=== PATIENT | male | born 1960 | race Caucasian/White ===

== ENCOUNTER 2018-05-07 14:33 | Emergency (ER) | payer BC, OTHER ==
--- OUTSIDE RECORDS SUMMARY | 2018-05-07 14:35 | XMS REPORT | Clinical Summary ---
:1960 Author Organization [facility] Address [address] [place] [address] Phone Care Team Providers Name Role Phone Unavailable Primary Care Provider Unavailable Allergies No Known Allergies Current Medications Prescription Sig. Disp. Refills Start End Date Status Date montelukast Take 10 mg by mouth Active (SINGULAIR) 10 mg nightly. tablet pregabalin Take 75 mg by mouth Active (LYRICA) 75 MG 3 (three) times capsule daily. aspirin 81 MG Take 1 tablet (81 30 tablet 11 08/10/20 Active chewable tablet mg total) by mouth 7 18 daily. atorvastatin Take 1 tablet (40 30 tablet 08/09/20 Active (LIPITOR) 40 MG mg total) by mouth 7 18 tablet nightly. clopidogrel Take 1 tablet (75 30 tablet 11 08/10/20 Active (PLAVIX) 75 mg mg total) by mouth 7 18 tablet daily. levothyroxine Take 1 tablet (112 30 tablet 11 08/10/20 Active (SYNTHROID, mcg total) by mouth 7 18 LEVOTHROID) 112 Every morning on an MCG tablet empty stomach. metFORMIN Take 1 tablet (500 60 tablet 2 Active (GLUCOPHAGE) 500 mg total) by mouth 7 MG tablet 2 (two) times daily with breakfast and dinner. insulin detemir Inject 0.3 mLs (30 3 mL 11 Active (LEVEMIR) 100 Units total) 7 unit/mL (3 mL) subcutaneously 2 InPn injection (two) times daily. insulin lispro 200 Inject 8-20 Units 3 mL Active unit/mL (3 mL) subcutaneously 3 7 InPn (three) times daily before meals. glipiZIDE Take 10 mg by mouth 08/09/20 Discontinued (GLUCOTROL) 10 MG once in evening. 17 tablet metoprolol Take 25 mg by mouth 08/09/20 Discontinued (TOPROL-XL) 25 MG daily. 17 24 hr tablet metFORMIN Take 500 mg by 08/09/20 Discontinued (GLUCOPHAGE) 500 mouth 3 (three) 17 MG tablet times daily. liothyronine Take 5 mcg by mouth 08/09/20 Discontinued (CYTOMEL) 5 MCG 2 (two) times [address] onto the 08/16/20 Discontinued (ANDRODERM) 4 skin. 17 mg/24 hr PT24 insulin glargine Inject 40 Units 08/09/20 Discontinued (LANTUS) 100 subcutaneously 17 unit/mL injection nightly Use as directed . acetaminophen-code Take 1 tablet by 30 tablet 0 08/19/20 ine (TYLENOL #3) mouth every 4 7 17 300-30 mg per (four) hours as tablet needed for up to 10 days. Max Daily Amount: 6 tablets bumetanide (BUMEX) Take 1 tablet (1 mg 60 tablet 11 08/16/20 Discontinued 1 MG tablet total) by mouth 2 7 17 (two) times daily. losartan (COZAAR) Take 1 tablet (25 30 tablet 08/20/20 Discontinued 25 MG tablet mg total) by mouth 7 17 daily. Active Problems Problem Noted Date Paroxysmal atrial fibrillation ([facility]) 08/16/2017 Neuropathy ([facility]) 08/16/2017 Stage 2 chronic kidney disease 08/16/2017 Uncontrolled type 2 diabetes mellitus with hyperglycemia ([facility]) 08/01/2017 CAD (coronary artery disease), [place] coronary artery 07/29/2017 Type 2 diabetes mellitus with other circulatory complication 07/29/2017 Mixed hyperlipidemia 07/29/2017 STEMI (ST elevation myocardial infarction) ([facility]) 07/28/2017 Essential hypertension Resolved Problems Problem Noted Date Resolved Date Ileus ([facility]) 08/02/2017 08/16/2017 Shock liver 08/02/2017 08/16/2017 Acute pulmonary insufficiency following thoracic surgery 08/01/20172016 ([facility]) Cardiogenic shock ([facility]) 08/01/2017 08/16/2017 Encephalopathy acute 08/01/2017 08/16/2017 Atrial fibrillation with rapid ventricular response ([facility]) 08/01/20172016 Acute kidney injury (HCC) 08/01/2017 08/16/2017 Acute hyperkalemia 08/01/2017 08/16/2017 SIRS (systemic inflammatory response syndrome) (HCC) 08/01/2017 08/16/2017 RVF (right ventricular failure) (HCC) 07/31/2017 08/16/2017 Acute respiratory insufficiency, postoperative 07/30/2017 08/16/2017 Pulmonary edema cardiac cause (HCC) 07/29/2017 08/16/2017 CAD (coronary artery disease) 08/16/2017 Non-intractable cyclical vomiting with nausea 08/16/2017 Encounters Date Type Specialty Care Team Description 08/20/2017 Office Visit Cardiology Tram Luke Post-operative state Jennifer MD (Primary Dx) Valdo Ballesteros MD 08/16/2017 Office Visit Cardiology Rosalva Vila, Carla combined SPEECH CLINICIAN systolic and diastolic CHF (congestive heart failure) ([facility]) (Primary Dx);Stage 2 chronic kidney disease 08/05/2017 Procedure Pass 08/05/2017 Surgery Faustino Lazar MD 08/01/2017 Procedure Pass 07/30/2017 Procedure Pass 07/30/2017 Surgery Favian BYPASS,AORTO CORONARY Valdo Crane CORINNA/SVG 07/29/2017 Anesthesia Event CelineLeo bazan, AA 07/29/2017 Procedure Pass 07/29/2017 Surgery [place] [facility] L CATH & PCI 07/29/2017 Orders Only General Internal Medicine 07/28/2017 - Hospital Encounter Transplant [place], ST elevation 08/09/2017 myocardial infarction Brandin Wu involving right (Joaquim) MD Luther coronary artery ([facility]) (Primary Dx);Acute respiratory insufficiency, postoperative;RVF (right ventricular failure) (HCC);Acute hyperkalemia;Acute kidney injury (HCC);Acute pulmonary insufficiency following thoracic surgery (HCC);Atrial fibrillation with rapid ventricular response (HCC);Cardiogenic shock (HCC);Encephalopathy acute;Ileus (HCC);Shock liver 07/28/2017 Procedure Pass 07/28/2017 Surgery [facility] L CATH & PCI after 05/06/2017 Social History Tobacco Use Types Packs/Day Years Used Date Never Smoker Smokeless Tobacco: Never Used Sex Assigned at Date Recorded Not on file Last Filed Vital Signs Vital Sign Reading Time Taken Blood Pressure 110/61 08/20/2017 9:37 AM CDT Pulse 113 08/20/2017 9:37 AM CDT Temperature 37 C (98.6 F) 08/20/2017 9:37 AM CDT Respiratory Rate 18 08/20/2017 9:37 AM CDT Oxygen Saturation 99% 08/20/2017 9:37 AM CDT Inhaled Oxygen Concentration - - Weight 92.5 kg (204 lb) 08/20/2017 9:37 AM CDT Height 182.9 cm (6') 08/20/2017 9:37 AM CDT Body Mass Index 27.67 08/20/2017 9:37 AM CDT Plan of Treatment Health Maintenance Due Date Last Done Comments INFLUENZA VACCINE 08/18/2018 Procedures Procedure Name Priority Date/Time Associated Diagnosis Comments R CATH 08/05/2017 2:49 PM CDT chest pain Case Notes [id number] ENDOSCOPIC HARVEST,VEIN 07/30/2017 7:30 AM CDT COAD BYPASS,AORTO CORONARY 07/30/2017 7:30 AM CDT COAD CORINNA/SVG CENTRAL LINE Routine 07/29/2017 10:18 PM CDT after 05/06/2017 Results B N P (08/16/2017 10:08 AM)Only the most recent of2 resultswithin the time period is included. Component Value Ref Range BNP 456 (H) 0 - 100 pg/mL Specimen Performing Laboratory Blood [address] [address] Magnesium (08/16/2017 10:08 AM)Only the most recent of16 resultswithin the time period is included. Component Value Ref Range Magnesium 2.0 1.6 - 2.6 mg/dL Specimen Performing Laboratory Blood [address] [address] Basic Metabolic Panel (08/16/2017 10:08 AM)Only the most recent of23 resultswithin the time period is included. Component Value Ref Range Sodium 135 (L) 136 - 145 meq/L Potassium 5.1 3.5 - 5.1 meq/L Chloride 100 98 - 107 meq/L CO2 27 22 - 29 meq/L BUN 26 (H) 7 - 21 mg/dL Creatinine 1.06 0.57 - 1.25 mg/dL Glucose 175 (H) 70 - 105 mg/dL Calcium 9.5 8.4 - 10.2 mg/dL EGFR 72Comment: ESTIMATED GFR IS NOT ACCURATE mL/min/1.73 sq m CREATININE CLEARANCE IN PREDICTING GLOMERULAR FILTRATION RATE. ESTIMATED GFR IS NOT APPLICABLE FOR DIALYSIS PATIENTS. Specimen Performing Laboratory Blood [address] [address] VASCULAR DIAGRAM -SCAN (08/12/2017 1:00 PM)Only the most recent of2 resultswithin the time period is included.RHYTHM STRIP - SCAN (08/12/2017 1:00 PM)EKG-SCANNED (08/12/2017 1:00 PM)POC-Glucose meter (08/09/2017 12:06 PM)Only the most recent of116 resultswithin the time period is included. Component Value Ref Range POC-Glucose Meter 272 (H)Comment: TESTED AT [address] 70 - 110 mg/[place] [id number] Specimen Performing Laboratory Blood [address] [address] ECG 12 lead (08/09/2017 7:06 AM)Only the most recent of11 resultswithin the time period is included. Specimen Performing Laboratory GE MUSE Narrative Ventricular Rate 97 BPM Atrial Rate 97 BPM P-R Interval 144 ms QRS Duration 84 ms Q-T Interval 336 ms QTC Calculation(Bazett) 426 ms P [place] 49 degrees R [place] -7 degrees T [place] -32 degrees Sinus rhythm with occasional Premature ventricular complexes Inferolateral infarct(cited on or before 04-AUG-2017) Nonspecific ST and T wave abnormality Abnormal ECG When compared with ECG of 08-AUG-2017 08:22, Premature ventricular complexes are now Present Inverted T waves have replaced nonspecific T wave abnormality in Lateral leads Confirmed by MD JOSEFINA, MATTHIEU ([id number]) on 08/09/2017 5:23:21 PM Procedure Note Interface, External Ris In - 08/09/2017 5:23 PM CDT Ventricular Rate 97 BPM Atrial Rate 97 BPM P-R Interval 144 ms QRS Duration 84 ms Q-T Interval 336 ms QTC Calculation(Bazett) 426 ms P [place] 49 degrees R [place] -7 degrees T [place] -32 degrees Sinus rhythm with occasional Premature ventricular complexes Inferolateral infarct (cited on or before 04-AUG-2017) Nonspecific ST and T wave abnormality Abnormal ECG When compared with ECG of 08-AUG-2017 08:22, Premature ventricular complexes are now Present Inverted T waves have replaced nonspecific T wave abnormality in Lateral leads Confirmed by MD JOSEFINA, MATTHIEU ([id number]) on 08/09/2017 5:23:21 PM CBC with platelet count + automated diff (08/09/2017 6:05 AM)Only the most recent of12 resultswithin the time period is included. Component Value Ref Range WBC 4.6 3.5 - 10.5 K/L RBC 2.91 (L) 4.63 - 6.08 M/L Hemoglobin 8.4 (L) 13.7 - 17.5 GM/DL Hematocrit 26.5 (L) 40.1 - 51.0 % MCV 91.1 79.0 - 92.2 fL MCH 28.9 25.7 - 32.2 pg MCHC 31.7 (L) 32.3 - 36.5 GM/DL RDW 13.8 11.6 - 14.4 % Platelets 166 150 - 450 K/CU MM MPV 11.1 9.4 - 12.4 fL nRBC 0 0 - 0 /100 WBC % Neutros 62 % % Lymphs 24 % % Monos 10 % % Eos 3 % % Baso 1 % # Neutros 2.86 1.78 - 5.38 K/L # Lymphs 1.08 (L) 1.32 - 3.57 K/L # Monos 0.46 0.30 - 0.82 K/L # Eos 0.12 0.04 - 0.54 K/L # Baso 0.03 0.01 - 0.08 K/L Immature Granulocytes-Relative 1 0 - 1 % Specimen Performing Laboratory Blood [facility] [address] [address] CBC with platelet count + automated diff (08/09/2017 6:05 AM)Only the most recent of12 resultswithin the time period is included. Specimen Performing Laboratory Blood Narrative The following orders were created for panel order CBC with platelet count + automated diff. Procedure Abnormality Status --------- ------ CBC with platelet count ...[[id number]]AbnormalFinal result Please view results for these tests on the individual orders. XR chest 1 view portable / bedside (08/08/2017 7:15 AM)Only the most recent of14 resultswithin the time period is included. Specimen Performing Laboratory GE RIS Narrative FINAL REPORT HISTORY : acute pulmonary edema, aggressive diuresis over 24hrs.. Comparison: 08/07/2017 Comment: Single portable view of the chest was obtained. The cardiac silhouette size is enlarged. There are some diffusely prominent interstitial lung markings, likely representing interstitial edema. Interstitial pneumonitis cannot be excluded. There is some bilateral midlung linear airspace disease likely representing atelectasis versus scarring. Stable right-sided PICC line catheter is seen. The patient is status post sternotomy. No pneumothorax or pleural effusion is seen. Signed: Russell Acharya MD Report Verified Date/Time:08/08/2017 07:53:05 Reading Location: [facility] Diagnostic Imaging Reading Room - [place] [address] Procedure Note Interface, External Ris In - 08/08/2017 7:55 AM CDT FINAL REPORT HISTORY : acute pulmonary edema, aggressive diuresis over 24hrs.. Comparison: 08/07/2017 Comment: Single portable view of the chest was obtained. The cardiac silhouette size is enlarged. There are some diffusely prominent interstitial lung markings, likely representing interstitial edema. Interstitial pneumonitis cannot be excluded. There is some bilateral midlung linear airspace disease likely representing atelectasis versus scarring. Stable right-sided PICC line catheter is seen. The patient is status post sternotomy. No pneumothorax or pleural effusion is seen. Signed: Russell Acharya MD Report Verified Date/Time: 08/08/2017 07:53:05 Reading Location: [facility] Diagnostic Imaging Reading Room - [place] [address] Hepatic function panel (08/07/2017 8:18 AM)Only the most recent of5 resultswithin the time period is included. Component Value Ref Range Protein, Total 6.0 6.0 - 8.3 gm/dL Albumin 3.0 (L) 3.5 - 5.0 g/dL Total Bilirubin 0.8 0.2 - 1.2 mg/dL Bilirubin, Direct 0.4 0.1 - 0.5 mg/dL Alkaline Phosphatase 69 40 - 150 U/L AST 58 (H) 5 - 34 U/L ALT 430 (H) 6 - 55 U/L Specimen Performing Laboratory Blood - Central Venous Line [address] [address] ECHOCARDIOGRAM REPORT - SCAN (08/07/2017 7:20 AM)Only the most recent of3 resultswithin the time period is included.Manual Differential (08/07/2017 6:48 AM)Only the most recent of5 resultswithin the time period is included. Component Value Ref Range Total Counted WBC Morphology Normal Platelet Morphology Normal Anisocytosis 1+ few Polychromasia 2+ moderate Tear Drop Cells 1+ few Specimen Performing Laboratory Blood [address] [address] Digoxin level (08/07/2017 3:33 AM) Component Value Ref Range Digoxin Lvl 0.5 (L) 0.8 - 2.0 ng/mL Specimen Performing Laboratory Blood [address] [address] Potassium (08/06/2017 1:41 PM)Only the most recent of14 resultswithin the time period is included. Component Value Ref Range Potassium 3.9 3.5 - 5.1 meq/L Specimen Performing Laboratory Blood - Central Venous Line [address] [address] Narrative 8 hours after PO replacement completed CARDIAC CATH REPORT - SCAN (08/06/2017 1:11 PM)Only the most recent of3 resultswithin the time period is included.Limited 2D Echocardiogram (08/06/2017 12:37 PM) Component Value Ref Range Ejection Fraction Specimen Performing Laboratory [facility] ECHO HEARTLAB [facility] Narrative Transthoracic Echocardiography Report (TTE) Demographics Patient Name KOKO,Date of Study 08/06/2017 ZAHRAA [id number] Male Visit Number [id number] Room Number C827 Number Date of Birth1960Referring Physician Nagi Nicholas Age56 year(s)Children'S Counselor Lindsay Galicia, NIDHI AnalystAlex Zade Interpreting Avinash Dick Physician Procedure Type of Study TTE procedure:LIMITED 2D ECHOCARDIOGRAM ([facility]) Indications:Suspected Pericardial conditions. Clinical History HGB 8.8 HCT 25.9 % NAVI Atrial Fibrillation/flutter Coronary Artery Disease Diabetes Hyperlipidemia Hypertension STEMI S/P ACB X3 (07/30/17) Height: 72 inches Weight: 97.98 kg (216 lbs) BSA: 2.2 m^2 BMI: 29.29 kg/m^2 HR: 93 bpm BP: 141/73 mmHg Summary Limited 2D echo, to assess pericardial effusion. The left ventricle is chamber size (by PSLAX dimension) is normal (male - LVIDd 4.2-5.8cm) . The following segment(s) appear mildly hypokinetic: basal-mid inferolateral. . The other segments contract normally. Estimated LVEF by qualitative assessment is normal (55-60%) . No pericardial effusion is visualized. The inferior vena cava is not well visualized. Mild tricuspid regurgitation. Estimated peak systolic PA pressure is 20-25 mmHg + RA pressure. Signature Findings Left Ventricle The left ventricle is chamber size (by PSLAX dimension) is normal (male - LVIDd 4.2-5.8cm) . The following segment(s) appear mildly hypokinetic: basal-mid inferolateral. . The other segments contract normally. Estimated LVEF by qualitative assessment is normal (55-60%) . Left AtriumLA size is moderately enlarged . Right VentricleRV chamber size is mildly enlarged . Global RV systolic function is normal . Right Atrium RA size is dilated. Aortic Valve Mild AoV cusp thickening. Mitral Valve Normal MV structure. Tricuspid ValveMild tricuspid regurgitation. Estimated peak systolic PA pressure is 20-25 mmHg + RA pressure. AortaAortic root size (SInus of Valsalva diameter) is normal . PericardiumNo pericardial effusion is visualized. IVC/SVC/PA/PV/PleuralThe inferior vena cava is not well visualized. Chambers/Structures Left Atrium LA Dimension: 4.34 cmLA Area: 27.08 cm^2 LA Volume: 92.62 ml LA Vol. Index: 42 ml/m^2 Left Ventricle LVIDd: 4.57 cm LVEDV 2D:96.08 ml LV Septum Diastolic: 0.97 cm LV PW Diastolic: 1.09 cm Aorta Ao Root S of Nithya.: 3.42 cm Procedure Note Interface, External Ris In - 08/06/2017 7:22 PM CDT Transthoracic Echocardiography Report (TTE) Demographics Patient Name [place], Date of Study 08/06/2017 ZAHRAA Gender Male Visit Number [id number] Race Unknown Room Number C827 Number Date of 1960 Referring Physician Nagi Nicholas Age 56 year(s) Children'S Counselor Lindsay Galicia, [facility] Account Resolution Specialist Abiodun Krishnamurthy Interpreting Avinash Dick, Physician Procedure Type of Study TTE procedure:LIMITED 2D ECHOCARDIOGRAM ([facility]) Indications:Suspected Pericardial conditions. Clinical History HGB 8.8 HCT 25.9 % NAVI Atrial Fibrillation/flutter Coronary Artery Disease Diabetes Hyperlipidemia Hypertension STEMI S/P ACB X3 (07/30/17) Height: 72 inches Weight: 97.98 kg (216 lbs) BSA: 2.2 m^2 BMI: 29.29 kg/m^2 HR: 93 bpm BP: 141/73 mmHg Summary Limited 2D echo, to assess pericardial effusion. The left ventricle is chamber size (by PSLAX dimension) is normal (male - LVIDd 4.2-5.8cm) . The following segment(s) appear mildly hypokinetic: basal-mid inferolateral. . The other segments contract normally. Estimated LVEF by qualitative assessment is normal (55-60%) . No pericardial effusion is visualized. The inferior vena cava is not well visualized. Mild tricuspid regurgitation. Estimated peak systolic PA pressure is 20-25 mmHg + RA pressure. Signature Findings Left Ventricle The left ventricle is chamber size (by PSLAX dimension) is normal (male - LVIDd 4.2-5.8cm) . The following segment(s) appear mildly hypokinetic: basal-mid inferolateral. . The other segments contract normally. Estimated LVEF by qualitative assessment is normal (55-60%) . Left Atrium LA size is moderately enlarged . Right Ventricle RV chamber size is mildly enlarged . Global RV systolic function is normal . Right Atrium RA size is dilated. Aortic Valve Mild AoV cusp thickening. Mitral Valve Normal MV structure. Tricuspid Valve Mild tricuspid regurgitation. Estimated peak systolic PA pressure is 20-25 mmHg + RA pressure. Aorta Aortic root size (SInus of Valsalva diameter) is normal . Pericardium No pericardial effusion is visualized. IVC/SVC/PA/PV/Pleural The inferior vena cava is not well visualized. Chambers/Structures Left Atrium LA Dimension: 4.34 cm LA Area: 27.08 cm^2 LA Volume: 92.62 ml LA Vol. Index: 42 ml/m^2 Left Ventricle LVIDd: 4.57 cm LVEDV 2D:96.08 ml LV Septum Diastolic: 0.97 cm LV PW Diastolic: 1.09 cm Aorta Ao Root S of Nithya.: 3.42 cm aPTT (08/06/2017 8:16 AM)Only the most recent of18 resultswithin the time period is included. Component Value Ref Range PTT 45.7 (H) 22.5 - 36.0 seconds Specimen Performing Laboratory Blood - Central Venous Line [address] [address] Oxygen saturation, measured (08/06/2017 2:59 AM)Only the most recent of13 resultswithin the time period is included. Component Value Ref Range O2 Saturation (Measured) 59.5 % Specimen Performing Laboratory Blood - Central Venous Line [address] [address] Narrative Mixed venous from central line. Lactic acid, venous, whole blood (08/06/2017 2:59 AM) Component Value Ref Range Lactate, Venous 0.9 0.5 - 2.2 mmol/L Specimen Performing Laboratory Blood - Central Venous Line [address] [address] Narrative Effective 03/21/2016: Units/Reference Range Change New: 0.5-2.2 mmol/LPrevious: 5-20 mg/dL Hepatitis panel, acute (08/06/2017 2:59 AM) Component Value Ref Range Hep A IgM Nonreactive Nonreactive Hep B C IgM Nonreactive Nonreactive Hepatitis C Ab Nonreactive Nonreactive hepatitis B Surface Ag Nonreactive Nonreactive Specimen Performing Laboratory Blood - Central Venous Line [address] [address] Phosphorus (08/06/2017 2:59 AM)Only the most recent of7 resultswithin the time period is included. Component Value Ref Range Phosphorus 3.0 2.3 - 4.7 mg/dL Specimen Performing Laboratory Blood - Central Venous Line [address] [address] Lactic acid, arterial, whole blood (08/05/2017 3:27 AM)Only the most recent of6 resultswithin the time period is included. Component Value Ref Range Lactate, Art 1.6 0.5 - 2.2 mmol/L Specimen Performing Laboratory Blood, Arterial [address] [address] Narrative Effective 03/21/2016: Units/Reference Range Change New: 0.5-2.2 mmol/LPrevious: 5-20 mg/dL TRANSFUSION SERVICE REPORT - SCAN (08/03/2017 5:43 PM)Only the most recent of5 resultswithin the time period is included.US abdomen limited (08/03/2017 7:05 AM) Specimen Performing Laboratory [facility] Narrative FINAL REPORT Ultrasound of the Right Upper Quadrant of the Abdomen Clinical History:Abnormal LFTs Comparison: None available Discussion: Sonographic evaluation of the right upper quadrant of the abdomen is performed. Liver: Measures 17.3 cm in length at the right midclavicular line. Diffusely increased echogenicity of the hepatic parenchyma. No lesion is identified by ultrasound.Main portal vein diameter measures 1.2 cm. Biliary tree:Common duct measures 6 mm.No intrahepatic biliary dilatation. Gallbladder:Sludge in the gallbladder lumen. No wall thickening. No pericholecystic fluid.Negative sonographic Colby's sign. Pancreas: Not well visualized. Ascites:None seen. Right kidney:Measures 11.3 x 5.3 x 6.4 cm.Normal cortical echogenicity.No mass.No shadowing calculus.No hydronephrosis. IVC/Aorta: Not well seen. Impression: Diffusely increased echogenicity of the hepatic parenchyma, a nonspecific finding which can be seen in steatosis or hepatitis. Gallbladder sludge. No sonographic evidence of acute cholecystitis. Signed: Chele Franco MD Report Verified Date/Time:08/03/2017 09:59:59 Reading Location: [facility] C013Y CT Body Reading Room Procedure Note Interface, External Ris In - 08/03/2017 10:02 AM CDT FINAL REPORT Ultrasound of the Right Upper Quadrant of the Abdomen Clinical History: Abnormal LFTs Comparison: None available Discussion: Sonographic evaluation of the right upper quadrant of the abdomen is performed. Liver: Measures 17.3 cm in length at the right midclavicular line. Diffusely increased echogenicity of the hepatic parenchyma. No lesion is identified by ultrasound. Main portal vein diameter measures 1.2 cm. Biliary tree: Common duct measures 6 mm. No intrahepatic biliary dilatation. Gallbladder: Sludge in the gallbladder lumen. No wall thickening. No pericholecystic fluid. Negative sonographic Colby's sign. Pancreas: Not well visualized. Ascites: None seen. Right kidney: Measures 11.3 x 5.3 x 6.4 cm. Normal cortical echogenicity. No mass. No shadowing calculus. No hydronephrosis. IVC/Aorta: Not well seen. Impression: Diffusely increased echogenicity of the hepatic parenchyma, a nonspecific finding which can be seen in steatosis or hepatitis. Gallbladder sludge. No sonographic evidence of acute cholecystitis. Signed: Chele Franco MD Report Verified Date/Time: 08/03/2017 09:59:59 Reading Location: [address] Body Reading Room Creatine Kinase (CK) (08/03/2017 4:52 AM)Only the most recent of2 resultswithin the time period is included. Component Value Ref Range Total CK 1216 (H) 29 - 200 U/L Specimen Performing Laboratory Blood [address] [address] Prepare Leuko-Red RBC (08/02/2017 11:54 PM) Component Value Ref Range CROSSMATCH COMPATIBLE Unit ABO A Pos UNIT NUMBER [id number] Status TRANSFUSED Blood Bank Product RED BLOOD CELLS PRODUCT CODE [id number] Specimen Performing Laboratory Other [employer] [place] Blood gas, arterial (08/02/2017 3:32 PM)Only the most recent of11 resultswithin the time period is included. Component Value Ref Range pH, Arterial 7.46 (H) 7.35 - 7.45 pCO2, Arterial 35 35 - 45 mmHg pO2, Arterial 244 (H) 80 - 90 mmHg O2 Sat, Arterial 99.6 (H) 96.0 - 97.0 % HCO3, Arterial 25 21 - 29 mmol/L Base Excess, Arterial 0.6 -2.0 - 3.0 mmol/L Patient Temperature 36.5 C FIO2 100.0 % Specimen Performing Laboratory Blood, Arterial [address] [address] Hemoglobin and hematocrit (08/02/2017 8:36 AM)Only the most recent of8 resultswithin the time period is included. Component Value Ref Range Hemoglobin 9.1 (L) 13.7 - 17.5 GM/DL Hematocrit 26.7 (L) 40.1 - 51.0 % Specimen Performing Laboratory Blood [address] [address] XR abdomen / KUB 1 view (08/02/2017 5:26 AM) Specimen Performing Laboratory GE RIS Narrative FINAL REPORT RAD, ABDOMEN/KUB, 1 VIEW AP CLINICAL INDICATION:"Distention" COMPARISON: None TECHNIQUE: Single, frontal radiograph of the abdomen. IMPRESSION: Prominent but not dilated, air-filled loops of small bowel in the left hemiabdomen. Nondistended, air-filled loops of colon. Overall pattern is nonspecific. There is no high-grade obstruction at this time. No pneumatosis or obvious pneumoperitoneum. No acute osseous abnormality. Signed: Alice Moore MD Report Verified Date/Time:08/02/2017 05:44:54 Reading Location: [facility] C013X Ortho Consult Reading Room Procedure Note Interface, External Ris In - 08/02/2017 5:47 AM CDT FINAL REPORT RAD, ABDOMEN/KUB, 1 VIEW AP CLINICAL INDICATION: "Distention" COMPARISON: None TECHNIQUE: Single, frontal radiograph of the abdomen. IMPRESSION: Prominent but not dilated, air-filled loops of small bowel in the left hemiabdomen. Nondistended, air-filled loops of colon. Overall pattern is nonspecific. There is no high-grade obstruction at this time. No pneumatosis or obvious pneumoperitoneum. No acute osseous abnormality. Signed: Alice Moore MD Report Verified Date/Time: 08/02/2017 05:44:54 Reading Location: [facility] C013X Ortho Consult Reading Room Transfuse Leuko-Red RBC (08/01/2017 6:53 PM)Only the most recent of2 resultswithin the time period is included.US Renal with Doppler (08/01/2017 4: 00 PM) Specimen Performing Laboratory [facility] Narrative FINAL REPORT TECHNIQUE: Grayscale, color Doppler, and spectral Doppler ultrasound of the kidneys and bladder. INDICATION: 56-year-old man with acute kidney injury. COMPARISON: None. FINDINGS: Markedly limited evaluation of the renal vasculature secondary to patient body habitus and inability to be repositioned. RIGHT KIDNEY: The right kidney measures 9.7 cm. Cortical thickness measures 1.3 cm. No solid mass lesions. No hydronephrosis. Renal artery and vein are not clearly visualized. LEFT KIDNEY: The left kidney measures 10 cm. Cortical thickness measures 0.8 cm. No solid mass lesions. No hydronephrosis. Renal artery and vein are patent. Resistive index in the interpolar region is within normal limits, measuring 0.6. Resistive indices in the upper and lower poles cannot be accurately assessed. BLADDER: Decompressed by Caballero catheter. OTHER FINDINGS: Trace ascites in the pelvis. IMPRESSION: Unremarkable appearance of both kidneys. Markedly limited Doppler evaluation of the renal vasculature, as detailed above. Trace ascites in the pelvis. Signed: Evan Artis MD Report Verified Date/Time:08/01/2017 16:36:54 Reading Location: [address] Ultrasound Reading Room Procedure Note Interface, External Ris In - 08/01/2017 4:39 PM CDT FINAL REPORT TECHNIQUE: Grayscale, color Doppler, and spectral Doppler ultrasound of the kidneys and bladder. INDICATION: 56-year-old man with acute kidney injury. COMPARISON: None. FINDINGS: Markedly limited evaluation of the renal vasculature secondary to patient body habitus and inability to be repositioned. RIGHT KIDNEY: The right kidney measures 9.7 cm. Cortical thickness measures 1.3 cm. No solid mass lesions. No hydronephrosis. Renal artery and vein are not clearly visualized. LEFT KIDNEY: The left kidney measures 10 cm. Cortical thickness measures 0.8 cm. No solid mass lesions. No hydronephrosis. Renal artery and vein are patent. Resistive index in the interpolar region is within normal limits, measuring 0.6. Resistive indices in the upper and lower poles cannot be accurately assessed. BLADDER: Decompressed by Caballero catheter. OTHER FINDINGS: Trace ascites in the pelvis. IMPRESSION: Unremarkable appearance of both kidneys. Markedly limited Doppler evaluation of the renal vasculature, as detailed above. Trace ascites in the pelvis. Signed: Evan Artis MD Report Verified Date/Time: 08/01/2017 16:36:54 Reading Location: [address] Ultrasound Reading Room Type and screen, automated (08/01/2017 11:04 AM)Only the most recent of2 resultswithin the time period is included. Component Value Ref Range ABO/RH AUTOMATED (BEAKER) A POSITIVE Ab Scrn NEGATIVE Specimen Performing Laboratory Blood [facility] [address] [place] [address] Glucose-STAT (08/01/2017 6:45 AM) Component Value Ref Range Glucose 345 (H) 70 - 105 mg/dL Specimen Performing Laboratory Blood - Line, Arterial [address] [address] Prepare PLT (07/31/2017 11:54 PM) Component Value Ref Range Unit ABO O Pos UNIT NUMBER [id number] Status TRANSFUSED Blood Bank Product PLATELETS PRODUCT CODE [id number] Status CANCELED Blood Bank Product PLATELETS Specimen Performing Laboratory [facility] [place] 2D Echo W/Doppler(CW/PW/Color) (07/31/2017 11:43 AM)Only the most recent of2 resultswithin the time period is included. Component Value Ref Range Ejection Fraction Specimen Performing Laboratory SLE ECHO HEARTLAB MKCKESSON CPACS Narrative Transthoracic Echocardiography Report (TTE) Demographics Patient Name DODGEVILLE,Date of Study2016 ZAHRAA [id number] Male Visit Number [id number] Unknown [id number] Room Number C827 Number Date of Birth1960Referring PhysicianSnaples River S Age56 year(s)SonographerSarah Burgos Interpreting Nichol Condon MD Physician Fellow Sumit Kruger Procedure Type of Study TTE procedure:2DECHO W DOPPLER(CW/PW/COLOR) (STAT) Indications:Known or suspected cardiomyopathy. Clinical History HGB 8.8 HCT 26.2 % STEMI, CAD, DM, HLD, CAD, Respiratory Insufficiency, RVF, HLD, ACB X 3 (07/30/17) Height: 72.05 inches Weight: 96 kg (211.64 lbs) BSA: 2.18 m^2 BMI: 28.67 kg/m^2 HR: 112 bpm BP: 98/54 mmHg Summary Global LV systolic function lower limits of normal . The following segment(s) appear akinetic: basal to mid inferior and basal to mid inferolateral wall. No evidence of LV hypertrophy. Grade 1 diastolic dysfunction (impaired relaxation and low-normal LA pressure). RV chamber size is mildly enlarged . Global RV systolic function is normal . A small pericardial effusion is suspected . Pericardial effusion is most apparent in the following locations: left ventricle ( adjacent to lateral wall of LV and left atrium. ) Previous Study Compared to the previous study on 07/29/17 there is a small pericardial effusion and new abnormal septal wall motion, likely in setting of recent cardiac surgery and the IABP is no longer in place. Signature Findings Rhythm/BPSinus tachycardia during the exam. Left Ventricle The left ventricle is chamber size (by vol index) is normal. The following segment(s) appear akinetic: basal to mid inferior and basal to mid inferolateral wall. Septal motion is abnormal, likely related to prior cardiac surgery . LVEF by quantitative assessment is lower limits of normal (50-55%) , Grade 1 diastolic dysfunction (impaired relaxation and low-normal LA pressure). Global LV systolic function lower limits of normal . No evidence of LV hypertrophy. Left AtriumLA size is normal . Right VentricleRV chamber size is mildly enlarged . Global RV systolic function is normal . Right Atrium RA size is normal. Aortic Valve Mild AoV cusp calcification. AoV calcification primarily involves the right- and non- coronary cusp(s). No evidence of aortic regurgitation. Mitral Valve Mild MV leaflet thickening. Mild to moderate mitral regurgitation. Restricted MV leaflet mobility involves the posterior leaflet(s) and appear due to papillary muscle dysfunction. The mechanism for MR is leaflet tethering . Tricuspid ValveMild TV leaflet thickening. Mild tricuspid regurgitation. Estimated peak systolic PA pressure is 20-25 mmHg + RA pressure. Pulmonic Valve Normal PV structure and function by limited views and Doppler. A trace of pulmonary regurgitation. AortaAortic root size (SInus of Valsalva diameter) is normal . PericardiumA small pericardial effusion is suspected . Pericardial effusion is most apparent in the following locations: left ventricle ( adjacent to lateral wall of LV and left atrium. ) IVC/SVC/PA/PV/PleuralThe inferior vena cava is not well visualized. The estimated RA pressure by IVC dynamics indeterminate . Chambers/Structures Left Atrium LA Volume: 55.43 ml LA Area: 20.19 cm^ 2 LA Vol. Index: 25 ml/m^2 Left Ventricle LVIDd: 4.92 cmLVEDV 2D :82.46 ml LVIDs: 3.58 cmLVESV 2D :37.34 ml LV Septum Diastolic: 0.98 cm LV Septum Systolic: 1.39 cm LV PW Diastolic: 1 cm LV FS: 27.2 % LV PW Systolic: 1.17 cm LV ESV (Cubed): 45.88 cc LVOT Diameter: 1.95 cm LV ESV (Teich):53.71 ml LV SV (Teich):60.18 ml LV SI (Teich):27.61 ml/m^2 LVEF 2D Teich: 54.7 % Aorta Ao Root S of Nithya.: 3.24 cm Shunts QS:38.11 ml Doppler/Quantitative Measurements Mitral Valve Peak Velocity: 3.33 m/s Mean Velocity: 0.55 m/s Mean Gradient: 1.37 mmHg Area (continuity): 2.37 cm^2 MR Velocity: 4.35 m/s MR VTI : 89.08 cm MV VTI : 16.06 cm MR Pk Grad: 75.55 mmHg Aortic Valve Peak Velocity: 1.23 m/sMean Velocity: 0.89 m/s Peak Gradient: 6.03 mmHg Mean Gradient: 3.63 mmHg AV Area (continuity): 2.22 cm^2 AV VTI: 17.19 cm AV DVI: 0.74 LVOT Peak Velocity: 0.86 m/s Peak Gradient: 2.95 mmHg Mean Velocity: 0.51 m/s Mean Gradient: 1.31 mmHg LVOT Diameter: 1.95 cmLVOT VTI: 12.76 cm LVOT Area: 2.99 cm^2LVOT SV:38.09 ml LVOT CO: 4.27 l/min LVOT CI: 1.96 l/min/m^2 Tricuspid Valve TR Velocity: 2.22 m/s TR Gradient: 19.65 mmHg Procedure Note Interface, External Ris In - 08/01/2017 1:10 PM CDT Transthoracic Echocardiography Report (TTE) Demographics Patient Name KOKO, Date of Study 07/31/2017 ZAHRAA Gender Male Visit Number [id number] Race Unknown Room Number C827 Number Date of 1960 Referring Physician Niharika Schmidt Age 56 year(s) Children'S Counselor Sarah Burgos Interpreting Nichol Condon MD Physician Fellow Sumit Kruger Procedure Type of Study TTE procedure:2DECHO W DOPPLER(CW/PW/COLOR) (STAT) Indications:Known or suspected cardiomyopathy. Clinical History HGB 8.8 HCT 26.2 % STEMI, CAD, DM, HLD, CAD, Respiratory Insufficiency, RVF, HLD, ACB X 3 (07/30/17) Height: 72.05 inches Weight: 96 kg (211.64 lbs) BSA: 2.18 m^2 BMI: 28.67 kg/m^2 HR: 112 bpm BP: 98/54 mmHg Summary Global LV systolic function lower limits of normal . The following segment(s) appear akinetic: basal to mid inferior and basal to mid inferolateral wall. No evidence of LV hypertrophy. Grade 1 diastolic dysfunction (impaired relaxation and low-normal LA pressure). RV chamber size is mildly enlarged . Global RV systolic function is normal . A small pericardial effusion is suspected . Pericardial effusion is most apparent in the following locations: left ventricle ( adjacent to lateral wall of LV and left atrium. ) Previous Study Compared to the previous study on 07/29/17 there is a small pericardial effusion and new abnormal septal wall motion, likely in setting of recent cardiac surgery and the IABP is no longer in place. Signature Findings Rhythm/BP Sinus tachycardia during the exam. Left Ventricle The left ventricle is chamber size (by vol index) is normal. The following segment(s) appear akinetic: basal to mid inferior and basal to mid inferolateral wall. Septal motion is abnormal, likely related to prior cardiac surgery . LVEF by quantitative assessment is lower limits of normal (50-55%) , Grade 1 diastolic dysfunction (impaired relaxation and low-normal LA pressure). Global LV systolic function lower limits of normal . No evidence of LV hypertrophy. Left Atrium LA size is normal . Right Ventricle RV chamber size is mildly enlarged . Global RV systolic function is normal . Right Atrium RA size is normal. Aortic Valve Mild AoV cusp calcification. AoV calcification primarily involves the right- and non- coronary cusp(s). No evidence of aortic regurgitation. Mitral Valve Mild MV leaflet thickening. Mild to moderate mitral regurgitation. Restricted MV leaflet mobility involves the posterior leaflet(s) and appear due to papillary muscle dysfunction. The mechanism for MR is leaflet tethering . Tricuspid Valve Mild TV leaflet thickening. Mild tricuspid regurgitation. Estimated peak systolic PA pressure is 20-25 mmHg + RA pressure. Pulmonic Valve Normal PV structure and function by limited views and Doppler. A trace of pulmonary regurgitation. Aorta Aortic root size (SInus of Valsalva diameter) is normal . Pericardium A small pericardial effusion is suspected . Pericardial effusion is most apparent in the following locations: left ventricle ( adjacent to lateral wall of LV and left atrium. ) IVC/SVC/PA/PV/Pleural The inferior vena cava is not well visualized. The estimated RA pressure by IVC dynamics indeterminate . Chambers/Structures Left Atrium LA Volume: 55.43 ml LA Area: 20.19 cm^2 LA Vol. Index: 25 ml/m^2 Left Ventricle LVIDd: 4.92 cm LVEDV 2D:82.46 ml LVIDs: 3.58 cm LVESV 2D:37.34 ml LV Septum Diastolic: 0.98 cm LV Septum Systolic: 1.39 cm LV PW Diastolic: 1 cm LV FS: 27.2 % LV PW Systolic: 1.17 cm LV ESV (Cubed):45.88 cc LVOT Diameter: 1.95 cm LV ESV (Teich):53.71 ml LV SV (Teich):60.18 ml LV SI (Teich):27.61 ml/m^2 LVEF 2D Teich: 54.7 % Aorta Ao Root S of Nithya.: 3.24 cm Shunts QS:38.11 ml Doppler/Quantitative Measurements Mitral Valve Peak Velocity: 3.33 m/s Mean Velocity: 0.55 m/s Mean Gradient: 1.37 mmHg Area (continuity): 2.37 cm^2 MR Velocity: 4.35 m/s MR VTI: 89.08 cm MV VTI: 16.06 cm MR Pk Grad: 75.55 mmHg Aortic Valve Peak Velocity: 1.23 m/s Mean Velocity: 0.89 m/s Peak Gradient: 6.03 mmHg Mean Gradient: 3.63 mmHg AV Area (continuity): 2.22 cm^2 AV VTI: 17.19 cm AV DVI: 0.74 LVOT Peak Velocity: 0.86 m/s Peak Gradient: 2.95 mmHg Mean Velocity: 0.51 m/s Mean Gradient: 1.31 mmHg LVOT Diameter: 1.95 cm LVOT VTI: 12.76 cm LVOT Area: 2.99 cm^2 LVOT SV:38.09 ml LVOT CO: 4.27 l/min LVOT CI: 1.96 l/min/m^2 Tricuspid Valve TR Velocity: 2.22 m/s TR Gradient: 19.65 mmHg Calcium, Ionized (07/31/2017 3:10 AM)Only the most recent of6 resultswithin the time period is included. Component Value Ref Range Calcium, Ion 1.14 1.12 - 1.27 mmol/L pH, Blood 7.36 Specimen [place] [address] [facility] CRITICAL LABS (ABG,NA,K,H&H,GLUCOSE) (07/30/2017 6:28 PM)Only the most recent of7 resultswithin the time period is included. Specimen Performing Laboratory Blood, Arterial Narrative The following orders were created for panel order [facility] CRITICAL LABS (ABG,NA,K,H&H,GLUCOSE). Procedure Abnormality Status --------- ------ Blood gas, arterial[[id number]]AbnormalFinal result Sodium Na-Stat Lab[[id number]] AbnormalFinal result Potassium-Stat Lab[[id number]] NormalFinal result Glucose-Stat Lab[[id number]] AbnormalFinal result HGB/HCT (H&H)-Stat Lab[[id number]] Abnormal Final result Please view results for these tests on the individual orders. Potassium-Stat Lab (07/30/2017 6:28 PM)Only the most recent of8 resultswithin the time period is included. Component Value Ref Range Potassium 3.9 3.6 - 5.5 meq/L Specimen Performing Laboratory Blood, [address] [address] Sodium Na-Stat Lab (07/30/2017 6:28 PM)Only the most recent of7 resultswithin the time period is included. Component Value Ref Range Sodium 134 (L) 135 - 148 meq/L Specimen Performing Laboratory Blood, [address] [address] Glucose-Stat Lab (07/30/2017 6:28 PM)Only the most recent of8 resultswithin the time period is included. Component Value Ref Range Glucose 190 (H) 70 - 110 mg/dL Specimen Performing Laboratory Blood, [address] [address] HGB/HCT (H&H)-Stat Lab (07/30/2017 6:28 PM)Only the most recent of7 resultswithin the time period is included. Component Value Ref Range Hemoglobin 10.5 (L) 13.0 - 16.8 g/dL Hematocrit 31.0 (L) 40.0 - 50.0 % Specimen Performing Laboratory Blood, [address] [address] PERIPHERAL VASCULAR REPORT - SCAN (07/30/2017 2:56 PM)Only the most recent of2 resultswithin the time period is included.Prepare plasma (07/30/2017 2:14 PM) Component Value Ref Range Unit ABO A Pos UNIT NUMBER [id number] Status RETURNED FROM ISSUE Blood Bank Product FFP PRODUCT CODE [id number] Unit ABO A Pos UNIT NUMBER [id number] Status RETURNED FROM ISSUE Blood Bank Product FFP PRODUCT CODE B6280Q13 Unit ABO A Pos UNIT NUMBER [id number] Status RETURNED FROM ISSUE Blood Bank Product FFP PRODUCT CODE C1654O92 Unit ABO A Pos UNIT NUMBER [id number] Status RETURNED FROM ISSUE Blood Bank Product FFP PRODUCT CODE [id number] Specimen Performing Laboratory [facility] [place] Prepare RBC (07/30/2017 2:14 PM) Component Value Ref Range CROSSMATCH COMPATIBLE Unit ABO A Pos UNIT NUMBER [id number] Status RETURNED FROM ISSUE Blood Bank Product RED BLOOD CELLS PRODUCT CODE B6212B33 CROSSMATCH COMPATIBLE Unit ABO A Pos UNIT NUMBER [id number] Status RETURNED FROM ISSUE Blood Bank Product RED BLOOD CELLS PRODUCT CODE Z5086V93 CROSSMATCH COMPATIBLE Unit ABO A Pos UNIT NUMBER [id number] Status RETURNED FROM ISSUE Blood Bank Product RED BLOOD CELLS PRODUCT CODE L4331O52 CROSSMATCH COMPATIBLE Unit ABO A Pos UNIT NUMBER [id number] Status RETURNED FROM ISSUE Blood Bank Product RED BLOOD CELLS PRODUCT CODE L4622F34 Specimen Performing Laboratory [facility] [place] Arterial doppler arm, left (07/30/2017 2:09 PM) Component Value Ref Range Ejection Fraction Specimen Performing Laboratory [facility] ECHO HEARTLAB MK[facility]ON [facility] Impressions Right Impression Not ordered. 1. The fingers demonstrate no pulses by PPG. Left Impression 1. The subclavian, axillary, brachial, radial and ulnar arteries are patent with Doppler waveforms consistent with balloon pump support. 2. The fingers demonstrate no pulses by PPG. Conclusions Summary Duplex imaging and digital PPG waveforms were performed on the left upper extremity. The arteries were adequately visualized. The left arterial system had Doppler waveforms consistent with balloon pump support. The fingers demonstrated no pulses by PPG. Signature Velocities are measured in cm/s ; Diameters are measured in cm Narrative PV [facility] - Upper Extremities Arterial Duplex Demographics Patient NameSZAHRAA LOBATO Date of Study07/30/2017 Visit [id number] Male of Birth1960 Number Referring Gallito Rogel MD Room [id number] Physician Children'S Counselor Genaro Aguirre. Interpreting Zay Martínez, RVT, ARDMSPjoselitoMD, RPVI Procedure Type of Study: Extremities Arteries: Upper Extremities Arterial Duplex, ARTERIAL DOPPLER ARM, LEFT. Indications for Study:Decreased/absent pulses . Patient Status:STAT. Study Location:Portable. Technical Quality:Adequate visualization. - Results were reported to:Dr. Bundy present for results on 07/30/2017 at 13:45.. Risk Factors History of Disease + +----+ + !Diagnosis!Date!Comments ! + +----+ + !History/Risk Factors:!![place], CAD, Cardiac Stents x 2, DM, IABP! + +----+ + Procedure Note Interface, External Ris In - 07/30/2017 2:11 PM CDT PV LAB - Upper Extremities Arterial Duplex Demographics Patient Name ZAHRAA SUTHERLAND Date of Study 07/30/2017 Age 56 Visit Number [id number] Gender Male Date of 1960 Number Referring Gallito Rogel MD Room Number 2C24 Physician Children'S Counselor Genaro Aguirre. Interpreting Zay Martínez RVT, ARS Physician , [facility] Procedure Type of Study: Extremities Arteries: Upper Extremities Arterial Duplex, ARTERIAL DOPPLER ARM, LEFT. Indications for Study:Decreased/absent pulses . Patient Status:STAT. Study Location:Portable. Technical Quality:Adequate visualization. - Results were reported to:Dr. Bundy present for results on 07/30/2017 at 13:45.. Risk Factors History of Disease + +----+ + !Diagnosis !Date!Comments ! + +----+ + !History/Risk Factors: ! ![place], CAD, Cardiac Stents x 2, DM, IABP ! + +----+ + Impressions Right Impression Not ordered. 1. The fingers demonstrate no pulses by PPG. Left Impression 1. The subclavian, axillary, brachial, radial and ulnar arteries are patent with Doppler waveforms consistent with balloon pump support. 2. The fingers demonstrate no pulses by PPG. Conclusions Summary Duplex imaging and digital PPG waveforms were performed on the left upper extremity. The arteries were adequately visualized. The left arterial system had Doppler waveforms consistent with balloon pump support. The fingers demonstrated no pulses by PPG. Signature Velocities are measured in cm/s ; Diameters are measured in cm CBC (Hemogram only) (07/30/2017 12:54 PM)Only the most recent of2 resultswithin the time period is included. Component Value Ref Range WBC 13.6 (H) 3.5 - 10.5 K/L RBC 3.55 (L) 4.63 - 6.08 M/L Hemoglobin 10.9 (L) 13.7 - 17.5 GM/DL Hematocrit 30.8 (L) 40.1 - 51.0 % MCV 86.8 79.0 - 92.2 fL MCH 30.7 25.7 - 32.2 pg MCHC 35.4 32.3 - 36.5 GM/DL RDW 12.1 11.6 - 14.4 % Platelets 131 (L) 150 - 450 K/CU MM MPV 11.8 9.4 - 12.4 fL nRBC 0 0 - 0 /100 WBC Specimen Performing Laboratory Blood [address] [address] POC ACTIVATED CLOTTING TIME (07/30/2017 10:42 AM)Only the most recent of7 resultswithin the time period is included. Component Value Ref Range Activated Clotting Time 120Comment: TESTED AT [address] [place] [address] Specimen Performing Laboratory Blood [address] [address] Thromboelastograph (TEG) (07/30/2017 10:37 AM) Component Value Ref Range TEG Activated Clotting Time 16.2 (H) 4.0 - 7.0 minutes TEG Fibrinogen Activity 48.3 (L) 61.0 - 73.0 degrees TEG Platelet Aggregation 71.4 (H) 55.0 - 65.0 MM TEG-H Activated Clotting Time 16.4 (H) 4.0 - 7.0 minutes TEG-H Fibrinogen Activity 48.1 (L) 61.0 - 73.0 degrees TEG-H Platelet Aggregation 68.8 (H) 55.0 - 65.0 MM Specimen Performing Laboratory Blood [address] [address] Prothrombin time/INR (07/30/2017 10:37 AM) Component Value Ref Range Protime 22.1 (H) 11.7 - 14.7 seconds INR 1.9 <=5.9 Specimen Performing Laboratory Blood [address] [address] Narrative RECOMMENDED COUMADIN/WARFARIN INR THERAPY RANGES STANDARD DOSE: 2.0 - 3.0 Includes: PROPHYLAXIS for venous thrombosis, systemic embolization; TREATMENT for venous thrombosis and/or pulmonary embolus. HIGH RISK: Target INR is 2.5-3.5 for patients with mechanical heart valves. Fibrinogen (07/30/2017 10:37 AM) Component Value Ref Range Fibrinogen 542 (H) 225 - 434 mg/dl Specimen Performing Laboratory Blood [address] [address] Platelet count (07/30/2017 10:37 AM) Component Value Ref Range Platelets 66 (L)Comment: OR patient 150 - 450 K/CU MM Specimen Performing Laboratory [address] [address] Central Line (07/29/2017 10:18 PM) Julito Richter 07/29/2017 10:18 PM CENTRAL VENOUS CATHETERIZATION Date of Procedure: 07/29/2017 Prefabricator: Julito Panchal MD Other Senior Media Director(s): N/A Others Present: Jose Armando Trotter RN Indication: Frequent blood draws, Hemodynamic monitoring. Consent: Informed consent was obtained from the patient. Catheter Type: Triple-Lumen, 7 Lao, 20 cm catheter Insertion Vessel: left internal jugular vein Time out was called. Patient positioning was trendelenburg. The procedural site was prepped with 2% chlorhexidine gluconate and then draped in the usual sterile fashion. Anesthesia included local anesthesia (3 mL of 1% lidocaine). The central venous catheter was prepared by flushing and clamping/capping all lumens. The target vessel was identified by ultrasound. Vascular access was achieved using the Seldinger technique. An 18 gauge introducer needle was inserted into the vessel. Venous placement was confirmed by the return of dark-red non-pulsatile blood. A 0.032" J-tipped wire was inserted through the lumen, and the needle was removed. A scalpel was used to make a small chandan in the skin at the insertion site. Tissue dilation was performed of the subcutaneous tract. The central venous catheter was then inserted over the wire, and the wire was removed. Blood was successfully aspirated from all lumens, and then each lumen was flushed and clamped/capped. The catheter was secured in place with sutures. The catheter and insertion site were cleaned with 2% chlorhexidine gluconate. A transparent adhesive dressing was applied. An x-ray has been ordered to confirm line placement. Electronic Signature: Julito Panchal MD (07/29/2017 10:16 PM) Troponin I (07/29/2017 8:39 PM)Only the most recent of2 resultswithin the time period is included. Component Value Ref Range Troponin I 27.18 (HH) 0.00 - 0.03 ng/mL Specimen Performing Laboratory Blood [address] [address] Narrative Troponin I (TnI) levels must be interpreted in the context of the presenting symptoms and the clinical findings. Elevated TnI levels indicate myocardial damage, but are not specific for ischemic heart disease. Elevated TnI levels are seen in patients with other cardiac conditions (including myocarditis and congestive heart failure), and slight TnI elevations occur in patients with other conditions, including sepsis, renal failure, acidosis, acute neurological disease, and persistent tachyarrhythmia. Platelet Aggregation: Function Screen (07/29/2017 12:12 PM) Component Value Ref Range Weak ADP 100 (H) 60 - 91 % Plt. Function Screen Interpretation 60-100% indicates normal platelet function Pathologist: Demar Arteaga MD (electronic signature) Platelets 149 (L) 150 - 450 K/CU MM Specimen Performing Laboratory Blood - Line, Venous [address] [address] TSH/Free T4 If Indicated (07/29/2017 12:12 PM) Component Value Ref Range TSH 0.62 0.35 - 4.94 uIU/mL Specimen Performing Laboratory Blood - Line, Venous [facility] [address] [place] [id number] Hemoglobin A1c (07/29/2017 12:12 PM) Component Value Ref Range Hemoglobin A1C 12.0 (H) 4.3 - 6.1 % Specimen Performing Laboratory Blood - Line, Venous [address] [address] Carotid doppler bilateral (07/29/2017 4:47 AM) Component Value Ref Range Ejection Fraction Specimen Performing Laboratory [facility] ECHO HEARTLAB MKCKESSON CPACS Impressions Right Impression 1. There is <50% diameter reduction (approximately 21% by 2-D measurement) in the internal carotid artery with a peak velocity of 55/5.89 cm/sec and heterogeneous plaque. 2. There is non-occluding plaque in the external carotid artery. 3. There is non-occluding plaque in the common carotid artery. 4. The vertebral artery flow is antegrade and normal. 5. The subclavian artery is within normal limits where visualized. Left Impression 1. There is <50% diameter reduction (approximately 14% by 2-D measurement) in the internal carotid artery with a peak velocity of 118/11 cm/sec and heterogeneous plaque. 2. There is non-occluding plaque in the external carotid artery. 3. There is non-occluding plaque in the common carotid artery. 4. The vertebral artery flow is antegrade and normal. 5. The subclavian artery is within normal limits where visualized. Conclusions Summary Carotid duplex scanning and color flow imaging were performed bilaterally. The arteries were adequately visualized. The bilateral internal carotid arteries had <50% hemodynamically insignificant stenosis (approximately 21% by 2-D measurement on the right, approximately 14% by 2-D measurement on the left) with heterogeneous plaque. The vertebral artery flow was antegrade and normal bilaterally. The subclavian arteries were patent with normal flow bilaterally where visualized. The waveforms were consistent with IABP support. Signature Velocities are measured in cm/s ; Diameters are measured in cm Carotid Right Measurements + +----+----+-----+ + + + !Location !PSV !EDV !Angle!%Stenosis 2D!%Stenosis Doppler! Tortuosity ! + +----+----+-----+ + + + !Prox CCA !55.7!1.76!60 !! ! ! + +----+----+-----+ + + + !Dist CCA !56.3!6.45!60 !! ! ! + +----+----+-----+ + + + !Prox ICA !55!5.89!60 !21% !<50% ! ! + +----+----+-----+ + + + !Dist ICA !40.2!2.64!0!! ! ! + +----+----+-----+ + + + !Prox ECA !91.3!9.82!60 !! ! ! + +----+----+-----+ + + + !Vertebral!30.2!4.76!60 !! ! ! + +----+----+-----+ + + + !Prox Subclavian!95.1!11!60 !! ! ! + +----+----+-----+ + + + - There is antegrade vertebral flow noted on the right side. - Additional Measurements:ICAPSV/CCAPSV 0.98.ICAEDV/CCAEDV 3.35. Carotid Left Measurements + +----+----+-----+ + + + !Location !PSV !EDV !Angle!%Stenosis 2D!%Stenosis Doppler! Tortuosity ! + +----+----+-----+ + + + !Prox CCA !56.3!2.35!60 !! ! ! + +----+----+-----+ + + + !Dist CCA !67.4!4.69!60 !! ! ! + +----+----+-----+ + + + !Prox ICA !118 !11!60 !14% !<50% ! ! + +----+----+-----+ + + + !Dist ICA !123 !9.43!60 !! ! ! + +----+----+-----+ + + + !Prox ECA !97.4!5.5 !60 !! ! ! + +----+----+-----+ + + + !Vertebral!33.8!2.36!60 !! ! ! + +----+----+-----+ + + + !Prox Subclavian!62.1!1.96!60 !! ! ! + +----+----+-----+ + + + - There is antegrade vertebral flow noted on the left side. - Additional Measurements:ICAPSV/CCAPSV 1.82.ICAEDV/CCAEDV 4.68. Narrative [facility] - Carotid Duplex Study Demographics Patient Name DODGEVILLE, Date of Study07/29/2017 ZAHRAA [id number] [id number] Visit Number [id number] Gender Male Accession Number [id number] Date of Birth1960 [facility] [id number] Physician ChandrakantographSamia Zimmer Interpreting Yonatan Banerjee, RPVI Procedure Type of Study: Cerebral: Carotid, CAROTID DOPPLER, BILATERAL. Indications for Study:Pre-op evaluation. Patient Status:Routine. Study Location:Portable. Technical Quality:Adequate visualization. Risk Factors History of Disease + +----+ + !Diagnosis!Date!Comments ! + +----+ + !History/Risk Factors:!![place], CAD, Cardiac Stents x 2, DM, IABP! + +----+ + Procedure Note Interface, External Ris In - 07/29/2017 10:19 AM CDT [facility] - Carotid Duplex Study Demographics Patient Name KOKO, Date of Study 07/29/2017 ZAHRAA Age 56 Visit Number [id number] Gender Male Accession Number [id number] Date of 1960 Referring Niharika Schmidt Room Number 9104 Physician Children'S Counselor Samuel Zimmer Interpreting Zay Martínez, Physician , RPVI Procedure Type of Study: Cerebral: Carotid, CAROTID DOPPLER, BILATERAL. Indications for Study:Pre-op evaluation. Patient Status:Routine. Study Location:Portable. Technical Quality:Adequate visualization. Risk Factors History of Disease + +----+ + !Diagnosis !Date!Comments ! + +----+ + !History/Risk Factors: ! ![place], CAD, Cardiac Stents x 2, DM, IABP ! + +----+ + Impressions Right Impression 1. There is <50% diameter reduction (approximately 21% by 2-D measurement) in the internal carotid artery with a peak velocity of 55/5.89 cm/sec and heterogeneous plaque. 2. There is non-occluding plaque in the external carotid artery. 3. There is non-occluding plaque in the common carotid artery. 4. The vertebral artery flow is antegrade and normal. 5. The subclavian artery is within normal limits where visualized. Left Impression 1. There is <50% diameter reduction (approximately 14% by 2-D measurement) in the internal carotid artery with a peak velocity of 118/11 cm/sec and heterogeneous plaque. 2. There is non-occluding plaque in the external carotid artery. 3. There is non-occluding plaque in the common carotid artery. 4. The vertebral artery flow is antegrade and normal. 5. The subclavian artery is within normal limits where visualized. Conclusions Summary Carotid duplex scanning and color flow imaging were performed bilaterally. The arteries were adequately visualized. The bilateral internal carotid arteries had <50% hemodynamically insignificant stenosis (approximately 21% by 2-D measurement on the right, approximately 14% by 2-D measurement on the left) with heterogeneous plaque. The vertebral artery flow was antegrade and normal bilaterally. The subclavian arteries were patent with normal flow bilaterally where visualized. The waveforms were consistent with IABP support. Signature Velocities are measured in cm/s ; Diameters are measured in cm Carotid Right Measurements + +----+----+-----+ + + + !Location !PSV !EDV !Angle!%Stenosis 2D!%Stenosis Doppler!Tortuosity ! + +----+----+-----+ + + + !Prox CCA !55.7!1.76!60 ! ! ! ! + +----+----+-----+ + + + !Dist CCA !56.3!6.45!60 ! ! ! ! + +----+----+-----+ + + + !Prox ICA !55 !5.89!60 !21% !<50% ! ! + +----+----+-----+ + + + !Dist ICA !40.2!2.64!0 ! ! ! ! + +----+----+-----+ + + + !Prox ECA !91.3!9.82!60 ! ! ! ! + +----+----+-----+ + + + !Vertebral !30.2!4.76!60 ! ! ! ! + +----+----+-----+ + + + !Prox Subclavian!95.1!11 !60 ! ! ! ! + +----+----+-----+ + + + - There is antegrade vertebral flow noted on the right side. - Additional Measurements:ICAPSV/CCAPSV 0.98.ICAEDV/CCAEDV 3.35. Carotid Left Measurements + +----+----+-----+ + + + !Location !PSV !EDV !Angle!%Stenosis 2D!%Stenosis Doppler!Tortuosity ! + +----+----+-----+ + + + !Prox CCA !56.3!2.35!60 ! ! ! ! + +----+----+-----+ + + + !Dist CCA !67.4!4.69!60 ! ! ! ! + +----+----+-----+ + + + !Prox ICA !118 !11 !60 !14% !<50% ! ! + +----+----+-----+ + + + !Dist ICA !123 !9.43!60 ! ! ! ! + +----+----+-----+ + + + !Prox ECA !97.4!5.5 !60 ! ! ! ! + +----+----+-----+ + + + !Vertebral !33.8!2.36!60 ! ! ! ! + +----+----+-----+ + + + !Prox Subclavian!62.1!1.96!60 ! ! ! ! + +----+----+-----+ + + + - There is antegrade vertebral flow noted on the left side. - Additional Measurements:ICAPSV/CCAPSV 1.82.ICAEDV/CCAEDV 4.68. Lipid panel (07/29/2017 4:24 AM) Component Value Ref Range Triglycerides 152 mg/dL Cholesterol 188 mg/dL HDL 31 mg/dL LDL Calculated 127 mg/dL Specimen Performing Laboratory Blood [facility] [address] [place] [address] Narrative Triglyceride Reference Range: Low Risk <150 [id number] High Risk 200-499 Very High Risk>=500 Cholesterol Reference Range: Low Risk <200 [id number] High Risk>240 HDL Cholesterol Reference Range: Low Risk >=60 High Risk <40 LDL Cholesterol Reference Range: Optimal<100 Near [id number] [id number] [id number] Very High >=190 after 05/06/2017
--- OUTSIDE RECORDS SUMMARY | 2018-05-07 14:38 | XMS REPORT ---
:1960 [facility] [address] [place] [address] Care Team Providers Name Role Phone BENNETT WASHINGTON Unavailable Unavailable SAURABH PAGE Unavailable Unavailable Problems This patient has no known problems. Allergies, Adverse Reactions, Alerts This patient has no known allergies or adverse reactions. Medications This patient has no known medications. Results Test Description Test Time Test Comments Text Results Atomic Results Result Comments POCT-ACT 2017-10-08 03:05:00 Test Item Value Reference Range Comments ACTIVATED CLOTTING TIME (BEAKER) (test 120 sec TESTED AT [address] jmkc=864) [place] [address] B-TYPE NATRIURETIC FACTOR (BNP)2017-08-16 10:44:00 Test Item Value Reference Range Comments B-TYPE NATRIURETIC PEPTIDE (BEAKER) (test 456 pg/mL 0-100 rxhm=644) [id number] 10:36:00 Test Item Value Reference Range Comments MAGNESIUM (BEAKER) (test ukun=642) 2.0 mg/dL 1.6-2.6 BASIC METABOLIC [id number] 10:36:00 Test Item Value Reference Range Comments SODIUM (BEAKER) (test 135 meq/L 136-145 gjhz=084) POTASSIUM (BEAKER) (test 5.1 meq/L 3.5-5.1 axhf=359) CHLORIDE (BEAKER) (test 100 meq/L 98-107 ghnp=182) CO2 (BEAKER) (test 27 meq/L 22-29 qxrx=504) BLOOD UREA NITROGEN 26 mg/dL 7-21 (BEAKER) (test gezr=985) CREATININE (BEAKER) (test 1.06 mg/dL 0.57-1.25 hdao=150) GLUCOSE RANDOM (BEAKER) 175 mg/dL 70-105 (test kjcz=551) CALCIUM (BEAKER) (test 9.5 mg/dL 8.4-10.2 wxze=028) EGFR (BEAKER) (test 72 mL/min/1.73 sq m ESTIMATED GFR IS NOT tbcv=0366) ACCURATE CREATININE CLEARANCE IN PREDICTING GLOMERULAR FILTRATION RATE. ESTIMATED GFR IS NOT APPLICABLE FOR DIALYSIS PATIENTS. POCT-GLUCOSE [id number] 13:51:00 Test Item Value Reference Range Comments POC-GLUCOSE METER (BEAKER) 272 mg/dL 70-110 TESTED AT [facility] [address] [facility] (test pews=6949) [facility] [address] POCT-GLUCOSE [id number] 08:46:00 Test Item Value Reference Range Comments POC-GLUCOSE METER (BEAKER) 205 mg/dL 70-110 TESTED AT [place] [id number] [facility] (test cuug=2875) [place] [id number] BASIC METABOLIC [id number] 07:46:00 Test Item Value Reference Range Comments SODIUM (BEAKER) (test 136 meq/L 136-145 zwjt=497) POTASSIUM (BEAKER) (test 4.2 meq/L 3.5-5.1 jbzj=203) CHLORIDE (BEAKER) (test 98 meq/L 98-107 bvpe=666) CO2 (BEAKER) (test 32 meq/L 22-29 nhtu=368) BLOOD UREA NITROGEN 12 mg/dL 7-21 (BEAKER) (test ihuk=942) CREATININE (BEAKER) (test 0.90 mg/dL 0.57-1.25 niwe=525) GLUCOSE RANDOM (BEAKER) 152 mg/dL 70-105 (test kelx=043) CALCIUM (BEAKER) (test 8.6 mg/dL 8.4-10.2 umig=886) EGFR (BEAKER) (test 87 mL/min/1.73 sq m ESTIMATED GFR IS NOT ynkd=8055) ACCURATE CREATININE CLEARANCE IN PREDICTING GLOMERULAR FILTRATION RATE. ESTIMATED GFR IS NOT APPLICABLE FOR DIALYSIS PATIENTS. CBC W/PLT COUNT & AUTO [id number] 07:19:00 Test Item Value Reference Range Comments WHITE BLOOD CELL COUNT (BEAKER) (test uuiv=223) 4.6 K/ L 3.5-10.5 RED BLOOD CELL COUNT (BEAKER) (test ghsd=551) 2.91 M/ L 4.63-6.08 HEMOGLOBIN (BEAKER) (test ppce=954) 8.4 GM/DL 13.7-17.5 HEMATOCRIT (BEAKER) (test rlfi=938) 26.5 % 40.1-51.0 MEAN CORPUSCULAR VOLUME (BEAKER) (test tkto=283) 91.1 fL 79.0-92.2 MEAN CORPUSCULAR HEMOGLOBIN (BEAKER) (test 28.9 pg 25.7-32.2 wwht=711) MEAN CORPUSCULAR HEMOGLOBIN CONC (BEAKER) (test 31.7 GM/DL 32.3-36.5 zibe=991) RED CELL DISTRIBUTION WIDTH (BEAKER) (test 13.8 % 11.6-14.4 duum=633) PLATELET COUNT (BEAKER) (test bcdo=093) 166 K/CU MM 150-450 MEAN PLATELET VOLUME (BEAKER) (test wtff=445) 11.1 fL 9.4-12.4 NUCLEATED RED BLOOD CELLS (BEAKER) (test 0 /100 WBC 0-0 gzdk=873) NEUTROPHILS RELATIVE PERCENT (BEAKER) (test 62 % hvkh=749) LYMPHOCYTES RELATIVE PERCENT (BEAKER) (test 24 % ctoe=487) MONOCYTES RELATIVE PERCENT (BEAKER) (test 10 % fpvt=081) EOSINOPHILS RELATIVE PERCENT (BEAKER) (test 3 % qnle=367) BASOPHILS RELATIVE PERCENT (BEAKER) (test 1 % ltwd=464) NEUTROPHILS ABSOLUTE COUNT (BEAKER) (test 2.86 K/ L 1.78-5.38 bvje=846) LYMPHOCYTES ABSOLUTE COUNT (BEAKER) (test 1.08 K/ L 1.32-3.57 xexw=437) MONOCYTES ABSOLUTE COUNT (BEAKER) (test 0.46 K/ L 0.30-0.82 nrbf=511) EOSINOPHILS ABSOLUTE COUNT (BEAKER) (test 0.12 K/ L 0.04-0.54 famc=240) BASOPHILS ABSOLUTE COUNT (BEAKER) (test 0.03 K/ L 0.01-0.08 mnlt=293) IMMATURE GRANULOCYTES-RELATIVE PERCENT (BEAKER) 1 % 0-1 (test cojh=2197) POCT-GLUCOSE [id number] 21:01:00 Test Item Value Reference Range Comments POC-GLUCOSE METER (BEAKER) 189 mg/dL 70-110 TESTED AT [facility] [address] [facility] (test lach=0609) [facility] [address] POCT-GLUCOSE [id number] 17:30:00 Test Item Value Reference Range Comments POC-GLUCOSE METER (BEAKER) 260 mg/dL 70-110 TESTED AT [address] (test nacg=1960) [facility] [address] POCT-GLUCOSE [id number] 12:53:00 Test Item Value Reference Range Comments POC-GLUCOSE METER (BEAKER) 322 mg/dL 70-110 TESTED AT [address] (test kvsk=9436) [facility] [address] RAD, CHEST, 1 VIEW, NON [id number] 07:53:00Reason for exam:->acute pulmonary edema, aggressive diuresis over 24hrs.Should this be performed at the bedside?->YesFINAL REPORT HISTORY : acute pulmonary edema, aggressive diuresis over 24hrs.. Comparison: 08/07/2017 Comment: Single portable view of the chest was obtained. The cardiac silhouette size is enlarged. There are some diffusely prominent interstitial lung markings, likely representing interstitial edema. Interstitial pneumonitis cannot be excluded. There is some bilateral midlung linear airspace disease likely representing atelectasis versus scarring. Stable right-sided PICC linecatheter is seen. The patient is status post sternotomy. No pneumothorax or pleural effusion is seen. Signed: Russell Acharya Verified Date/Time: 08/08/2017 07:53:05 Reading Location: [facility] Diagnostic Imaging Reading Room - [place] [address] POCT-GLUCOSE [id number] 07:40:00 Test Item Value Reference Range Comments POC-GLUCOSE METER (BEAKER) 248 mg/dL 70-110 TESTED AT [address] (test umju=5870) [facility] [address] BASIC METABOLIC [id number] 03:58:00 Test Item Value Reference Range Comments SODIUM (BEAKER) (test 134 meq/L 136-145 pvmr=729) POTASSIUM (BEAKER) (test 3.9 meq/L 3.5-5.1 ylhh=496) CHLORIDE (BEAKER) (test 96 meq/L 98-107 kfeg=767) CO2 (BEAKER) (test 29 meq/L 22-29 rkno=473) BLOOD UREA NITROGEN 16 mg/dL 7-21 (BEAKER) (test sdms=840) CREATININE (BEAKER) (test 1.01 mg/dL 0.57-1.25 qwpz=485) GLUCOSE RANDOM (BEAKER) 214 mg/dL 70-105 (test oezw=460) CALCIUM (BEAKER) (test 8.3 mg/dL 8.4-10.2 hmrj=609) EGFR (BEAKER) (test 76 mL/min/1.73 sq m ESTIMATED GFR IS NOT ycop=6628) ACCURATE CREATININE CLEARANCE IN PREDICTING GLOMERULAR FILTRATION RATE. ESTIMATED GFR IS NOT APPLICABLE FOR DIALYSIS PATIENTS. CBC W/PLT COUNT & AUTO [id number] 03:46:00 Test Item Value Reference Range Comments WHITE BLOOD CELL COUNT (BEAKER) (test ehwt=545) 5.3 K/ L 3.5-10.5 RED BLOOD CELL COUNT (BEAKER) (test kgxr=425) 2.80 M/ L 4.63-6.08 HEMOGLOBIN (BEAKER) (test erdd=463) 8.1 GM/DL 13.7-17.5 HEMATOCRIT (BEAKER) (test slzq=315) 25.3 % 40.1-51.0 MEAN CORPUSCULAR VOLUME (BEAKER) (test kbxx=656) 90.4 fL 79.0-92.2 MEAN CORPUSCULAR HEMOGLOBIN (BEAKER) (test 28.9 pg 25.7-32.2 izzb=607) MEAN CORPUSCULAR HEMOGLOBIN CONC (BEAKER) (test 32.0 GM/DL 32.3-36.5 hvae=986) RED CELL DISTRIBUTION WIDTH (BEAKER) (test 13.3 % 11.6-14.4 nems=677) PLATELET COUNT (BEAKER) (test mdpl=173) 160 K/CU MM 150-450 MEAN PLATELET VOLUME (BEAKER) (test cikb=647) 10.6 fL 9.4-12.4 NUCLEATED RED BLOOD CELLS (BEAKER) (test 0 /100 WBC 0-0 xhvh=868) NEUTROPHILS RELATIVE PERCENT (BEAKER) (test 67 % rjcu=290) LYMPHOCYTES RELATIVE PERCENT (BEAKER) (test 18 % psye=337) MONOCYTES RELATIVE PERCENT (BEAKER) (test 10 % ylzc=816) EOSINOPHILS RELATIVE PERCENT (BEAKER) (test 3 % fbrx=031) BASOPHILS RELATIVE PERCENT (BEAKER) (test 0 % sxzk=961) NEUTROPHILS ABSOLUTE COUNT (BEAKER) (test 3.54 K/ L 1.78-5.38 vfht=193) LYMPHOCYTES ABSOLUTE COUNT (BEAKER) (test 0.94 K/ L 1.32-3.57 ajwk=118) MONOCYTES ABSOLUTE COUNT (BEAKER) (test 0.54 K/ L 0.30-0.82 mngx=365) EOSINOPHILS ABSOLUTE COUNT (BEAKER) (test 0.15 K/ L 0.04-0.54 skyh=525) BASOPHILS ABSOLUTE COUNT (BEAKER) (test 0.01 K/ L 0.01-0.08 cjco=704) IMMATURE GRANULOCYTES-RELATIVE PERCENT (BEAKER) 2 % 0-1 (test wklh=2989) POCT-GLUCOSE [id number] 20:37:00 Test Item Value Reference Range Comments POC-GLUCOSE METER (BEAKER) 281 mg/dL 70-110 TESTED AT [address] (test cixs=1821) [place] [address] POCT-GLUCOSE [id number] 17:10:00 Test Item Value Reference Range Comments POC-GLUCOSE METER (BEAKER) 294 mg/dL 70-110 TESTED AT [address] (test bqqj=4607) [place] [id number] CBC W/PLT COUNT & AUTO [id number] 11:54:00 Test Item Value Reference Range Comments WHITE BLOOD CELL COUNT (BEAKER) (test qxcc=036) 7.0 K/ L 3.5-10.5 RED BLOOD CELL COUNT (BEAKER) (test imkk=881) 2.77 M/ L 4.63-6.08 HEMOGLOBIN (BEAKER) (test rcfy=889) 8.4 GM/DL 13.7-17.5 HEMATOCRIT (BEAKER) (test fgvs=060) 24.7 % 40.1-51.0 MEAN CORPUSCULAR VOLUME (BEAKER) (test ywjd=686) 89.2 fL 79.0-92.2 MEAN CORPUSCULAR HEMOGLOBIN (BEAKER) (test 30.3 pg 25.7-32.2 jpto=598) MEAN CORPUSCULAR HEMOGLOBIN CONC (BEAKER) (test 34.0 GM/DL 32.3-36.5 znle=834) RED CELL DISTRIBUTION WIDTH (BEAKER) (test 13.1 % 11.6-14.4 bigw=791) PLATELET COUNT (BEAKER) (test bmmo=755) 166 K/CU MM 150-450 MEAN PLATELET VOLUME (BEAKER) (test twfr=841) 10.7 fL 9.4-12.4 NUCLEATED RED BLOOD CELLS (BEAKER) (test 0 /100 WBC 0-0 hlyf=521) NEUTROPHILS RELATIVE PERCENT (BEAKER) (test 66 % ioud=636) LYMPHOCYTES RELATIVE PERCENT (BEAKER) (test 17 % kyio=504) MONOCYTES RELATIVE PERCENT (BEAKER) (test 10 % xlmq=691) EOSINOPHILS RELATIVE PERCENT (BEAKER) (test 2 % duss=259) BASOPHILS RELATIVE PERCENT (BEAKER) (test 0 % wslm=679) NEUTROPHILS ABSOLUTE COUNT (BEAKER) (test 4.61 K/ L 1.78-5.38 krwd=027) LYMPHOCYTES ABSOLUTE COUNT (BEAKER) (test 1.16 K/ L 1.32-3.57 czjg=404) MONOCYTES ABSOLUTE COUNT (BEAKER) (test 0.68 K/ L 0.30-0.82 jesh=235) EOSINOPHILS ABSOLUTE COUNT (BEAKER) (test 0.16 K/ L 0.04-0.54 atwk=459) BASOPHILS ABSOLUTE COUNT (BEAKER) (test 0.02 K/ L 0.01-0.08 amha=736) IMMATURE GRANULOCYTES-RELATIVE PERCENT (BEAKER) 5 % 0-1 (test etxs=0922) (MANUAL DIFFERENTIAL)2017-08-07 11:54:00 Test Item Value Reference Range Comments TOTAL COUNTED (BEAKER) (test metp=0567) WBC MORPHOLOGY (BEAKER) (test wzzu=886) Normal PLT MORPHOLOGY (BEAKER) (test asos=843) Normal ANISOCYTOSIS (BEAKER) (test ojai=418) 1+ few POLYCHROMATOPHILLIC RBCS(BEAKER) (test kyez=657) 2+ moderate TEAR DROP CELLS (BEAKER) (test edua=967) 1+ few RAD, CHEST, 1 VIEW, NON [id number] 10:23:00Reason for exam:->acute pulmonary edema, aggressive diuresis over 24hrs.Should this be performed at the bedside?->YesFINAL REPORT COMPARISON: 08/06/2017 TECHNIQUE: Single view of the chest FINDINGS: Mild bilateral interstitial opacities are stable. No large effusions or pneumothorax. Right-sided internal jugular central line has been removed. No other significant change. Signed: Gerson Krishnamurthyort Verified Date/Time: 08/07/2017 10:23:55 Reading Location: [facility] Radiology Reading Room [facility] [id number] 09:31:00 Test Item Value Reference Range Comments TOTAL PROTEIN (BEAKER) (test irtk=423) 6.0 gm/dL 6.0-8.3 ALBUMIN (BEAKER) (test ugiw=9446) 3.0 g/dL 3.5-5.0 BILIRUBIN TOTAL (BEAKER) (test vozl=663) 0.8 mg/dL 0.2-1.2 BILIRUBIN DIRECT (BEAKER) (test ihbz=728) 0.4 mg/dL 0.1-0.5 ALKALINE PHOSPHATASE (BEAKER) (test cdij=249) 69 U/L 40-150 AST (SGOT) (BEAKER) (test xxuy=583) 58 U/L 5-34 ALT (SGPT) (BEAKER) (test xeny=435) 430 U/L 6-55 POCT-GLUCOSE [id number] 08:08:00 Test Item Value Reference Range Comments POC-GLUCOSE METER (BEAKER) 220 mg/dL 70-110 TESTED AT [facility] [address] [facility] (test rpnn=2390) [facility] [address] BASIC METABOLIC [id number] 07:41:00 Test Item Value Reference Range Comments SODIUM (BEAKER) (test 135 meq/L 136-145 paba=910) POTASSIUM (BEAKER) (test 4.0 meq/L 3.5-5.1 lhon=360) CHLORIDE (BEAKER) (test 96 meq/L 98-107 ejxb=720) CO2 (BEAKER) (test 34 meq/L 22-29 lvwc=643) BLOOD UREA NITROGEN 24 mg/dL 7-21 (BEAKER) (test zovn=486) CREATININE (BEAKER) (test 1.12 mg/dL 0.57-1.25 rlaf=286) GLUCOSE RANDOM (BEAKER) 197 mg/dL 70-105 (test mdoh=034) CALCIUM (BEAKER) (test 8.1 mg/dL 8.4-10.2 xbsz=485) EGFR (BEAKER) (test 67 mL/min/1.73 sq m ESTIMATED GFR IS NOT kgho=6359) ACCURATE CREATININE CLEARANCE IN PREDICTING GLOMERULAR FILTRATION RATE. ESTIMATED GFR IS NOT APPLICABLE FOR DIALYSIS PATIENTS. DIGOXIN [id number] 04:05:00 Test Item Value Reference Range Comments DIGOXIN LEVEL (BEAKER) (test ybvy=529) 0.5 ng/mL 0.8-2.0 BASIC METABOLIC [id number] 03:59:00 Test Item Value Reference Range Comments SODIUM (BEAKER) (test 133 meq/L 136-145 nggf=105) POTASSIUM (BEAKER) (test 3.9 meq/L 3.5-5.1 tayb=276) CHLORIDE (BEAKER) (test 94 meq/L 98-107 hwed=258) CO2 (BEAKER) (test 34 meq/L 22-29 joib=041) BLOOD UREA NITROGEN 26 mg/dL 7-21 (BEAKER) (test rbzp=418) CREATININE (BEAKER) (test 1.15 mg/dL 0.57-1.25 eyui=261) GLUCOSE RANDOM (BEAKER) 205 mg/dL 70-105 (test gcbt=462) CALCIUM (BEAKER) (test 8.0 mg/dL 8.4-10.2 enju=614) EGFR (BEAKER) (test 65 mL/min/1.73 sq m ESTIMATED GFR IS NOT sair=6774) ACCURATE CREATININE CLEARANCE IN PREDICTING GLOMERULAR FILTRATION RATE. ESTIMATED GFR IS NOT APPLICABLE FOR DIALYSIS PATIENTS. POCT-GLUCOSE [id number] 22:55:00 Test Item Value Reference Range Comments POC-GLUCOSE METER (BEAKER) 325 mg/dL 70-110 Notified MELLISA GATES/TESTED AT [facility] (test sfij=3598) [address] [facility] [address] POCT-GLUCOSE [id number] 19:37:00 Test Item Value Reference Range Comments POC-GLUCOSE METER (BEAKER) 246 mg/dL 70-110 TESTED AT [place] [address] [address] (test junr=5773) [facility] [address] RAD, CHEST, 1 VIEW, NON [id number] 18:59:00Reason for exam:->PICC line placementFINAL REPORT INDICATION: PICC line placement COMPARISON: August 06, 2017 at 10:55 AM TECHNIQUE: Chest radiograph, single view, portable technique. FINDINGS / IMPRESSION: Thereis a new right PICC line that terminates at the cavoatrial junction. As before there is a right internal jugular line that terminates in the right atrium. There is pulmonary venous congestion and mild enlargement cardiac silhouette. Left lower lung linear opacities probably represents superimposed scar or atelectasis. There is no pneumothorax and no pleural effusion is demonstrated. Osseous structures are notable for median sternotomy wires. Signed: Enrike Miner MDReport Verified Date/Time: 08/06/2017 18:59:58 Reading Location: [address] Consult Reading Room 06: 59 PMPOCT-GLUCOSE [id number] 17:33:00 Test Item Value Reference Range Comments POC-GLUCOSE METER (BEAKER) 274 mg/dL 70-110 TESTED AT [address] (test kwed=4315) [facility] [address] POCT-GLUCOSE [id number] 17:12:00 Test Item Value Reference Range Comments POC-GLUCOSE METER (BEAKER) 223 mg/dL 70-110 TESTED AT [address] (test ukhi=5009) [place] [id number] B-TYPE NATRIURETIC FACTOR (BNP)2017-08-06 15:08:00 Test Item Value Reference Range Comments B-TYPE NATRIURETIC PEPTIDE (BEAKER) (test 2043 pg/mL 0-100 vcbw=127) [id number] 15:00:00 Test Item Value Reference Range Comments POTASSIUM (BEAKER) (test mmtz=361) 3.9 meq/L 3.5-5.1 8 hours after PO replacement completedPOCT-GLUCOSE [id number] 14:03:00 Test Item Value Reference Range Comments POC-GLUCOSE METER (BEAKER) 347 mg/dL 70-110 Notified MELLISA GAETS/TESTED AT [facility] (test imyr=2362) [address] [place] [address] POCT-GLUCOSE [id number] 13:08:00 Test Item Value Reference Range Comments POC-GLUCOSE METER (BEAKER) 359 mg/dL 70-110 Notified MELLISA GATES/TESTED AT [facility] (test wchf=5987) [address] [place] [address] RAD, CHEST, 1 VIEW, NON [id number] 11:39:00Reason for exam:->acute pulmonary edema, aggressive diuresis over 24hrs.Should this be performed at the bedside?->YesFINAL REPORT Chest one view. Clinical history: acute pulmonary edema, aggressive diuresis over 24hrs. Comparison: 08/05 Discussion: A frontal chest is provided. Right IJ line is in stable position. Unchanged cardiomediastinal contours. There is mild vascular congestion, improved from the previous study. Linear opacities at both mid to lower lungs likely reflect scarring oratelectasis, unchanged. No new consolidation. No pneumothorax, or large effusion. Signed: Hermelindo Peck Verified Date/Time: 08/06/2017 11:39:35 Reading Location: [facility] Radiology Reading Room Electronically signed by: HERMELINDO PECK M.D. on 08/06 11:39 AMPOCT-GLUCOSE [id number] 11:21:00 Test Item Value Reference Range Comments POC-GLUCOSE METER (BEAKER) 368 mg/dL 70-110 TESTED AT [address] (test nzjx=4326) [place] [address] POCT-GLUCOSE [id number] 09:31:00 Test Item Value Reference Range Comments POC-GLUCOSE METER (BEAKER) 270 mg/dL 70-110 TESTED AT [address] (test hqqk=4260) [place] [address] [id number] 08:45:00 Test Item Value Reference Range Comments PARTIAL THROMBOPLASTIN TIME (BEAKER) (test 45.7 seconds 22.5-36.0 fajx=337) POCT-GLUCOSE [id number] 08:26:00 Test Item Value Reference Range Comments POC-GLUCOSE METER (BEAKER) 200 mg/dL 70-110 TESTED AT [address] (test mgpz=2243) [place] [address] (MANUAL DIFFERENTIAL)2017-08-06 08:22:00 Test Item Value Reference Range Comments NEUTROPHILS - REL (DIFF) (BEAKER) (test 69 % cyik=7485) LYMPHOCYTES - REL (DIFF) (BEAKER) (test 16 % wcdo=4450) MONOCYTES - REL (DIFF) (BEAKER) (test eorx=2628) 7 % EOSINOPHILS - REL (DIFF) (BEAKER) (test 2 % xrzb=8602) METAMYELOCYTES-REL (DIFF) (BEAKER) (test 1 % 0-0 inzo=103) MYELOCYTES-REL (DIFF) (BEAKER) (test uodq=8550) 3 % 0-0 BANDS - REL (DIFF) (BEAKER) (test evax=7698) 2 % 0-10 NEUTROPHILS - ABS (DIFF) (BEAKER) (test 6.97 K/ L 1.80-8.00 dnvp=1173) LYMPHOCYTES - ABS (DIFF) (BEAKER) (test 1.62 K/ L 1.48-4.50 fnfc=5260) MONOCYTES - ABS (DIFF) (BEAKER) (test ummf=5866) 0.71 K/ L 0.00-1.30 EOSINOPHILS - ABS (DIFF) (BEAKER) (test 0.20 K/ L 0.00-0.50 qboy=6811) METAMYELOCTYES - ABS (DIFF) (BEAKER) (test 0.10 K/ L 0.00-0.00 yvfm=003) BANDS-ABS (DIFF) (BEAKER) (test fqtg=8028) 0.2 K/ L 0.0-0.8 MYELOCYTES-ABS (DIFF) (BEAKER) (test zpjx=6375) 0.30 K/ L 0.00-0.00 TOTAL COUNTED (BEAKER) (test eoga=2874) 100 BANDS + SEGMENTED NEUTROPHILS (BEAKER) (test 7.17 nxkb=0477) MANUAL NRBC PER 100 CELLS (BEAKER) (test 1 /100 WBC 0-0 hhwc=3880) WBC MORPHOLOGY (BEAKER) (test xvay=911) Normal PLT MORPHOLOGY (BEAKER) (test mfrv=932) Normal ANISOCYTOSIS (BEAKER) (test yrit=411) 1+ few POLYCHROMATOPHILLIC RBCS(BEAKER) (test kdlp=345) 1+ few CBC W/PLT COUNT & AUTO [id number] 08:18:00 Test Item Value Reference Range Comments WHITE BLOOD CELL COUNT (BEAKER) (test zous=693) 10.1 K/ L 3.5-10.5 RED BLOOD CELL COUNT (BEAKER) (test njxt=838) 2.96 M/ L 4.63-6.08 HEMOGLOBIN (BEAKER) (test sozm=883) 8.8 GM/DL 13.7-17.5 HEMATOCRIT (BEAKER) (test mrlj=666) 25.9 % 40.1-51.0 MEAN CORPUSCULAR VOLUME (BEAKER) (test ohfc=637) 87.5 fL 79.0-92.2 MEAN CORPUSCULAR HEMOGLOBIN (BEAKER) (test 29.7 pg 25.7-32.2 mmvc=346) MEAN CORPUSCULAR HEMOGLOBIN CONC (BEAKER) (test 34.0 GM/DL 32.3-36.5 whfr=028) RED CELL DISTRIBUTION WIDTH (BEAKER) (test 12.8 % 11.6-14.4 cmks=730) PLATELET COUNT (BEAKER) (test fkzn=334) 180 K/CU MM 150-450 MEAN PLATELET VOLUME (BEAKER) (test yvnq=430) 11.1 fL 9.4-12.4 NUCLEATED RED BLOOD CELLS (BEAKER) (test 0 /100 WBC 0-0 ldit=888) IMMATURE GRANULOCYTES-RELATIVE PERCENT (BEAKER) 8 % 0-1 (test xgay=4849) [id number] 06:55:00 Test Item Value Reference Range Comments PARTIAL THROMBOPLASTIN TIME (BEAKER) (test 110.4 seconds 22.5-36.0 adsg=450) POCT-GLUCOSE [id number] 06:13:00 Test Item Value Reference Range Comments POC-GLUCOSE METER (BEAKER) 116 mg/dL 70-110 TESTED AT [address] (test tpaa=2966) [place] [id number] POCT-GLUCOSE [id number] 05:14:00 Test Item Value Reference Range Comments POC-GLUCOSE METER (BEAKER) 97 mg/dL 70-110 TESTED AT [address] (test eusp=3529) [place] [id number] POCT-GLUCOSE [id number] 04:45:00 Test Item Value Reference Range Comments POC-GLUCOSE METER (BEAKER) 84 mg/dL 70-110 TESTED AT [address] (test zyxv=3950) [facility] [id number] HEPATITIS PANEL, [id number] 04:24:00 Test Item Value Reference Range Comments HEPATITIS A IGM ANTIBODY (BEAKER) (test Nonreactive Nonreactive iqdi=302) HEPATITIS B CORE IGM ANTIBODY (BEAKER) (test Nonreactive Nonreactive syru=362) HEPATITIS C ANTIBODY (BEAKER) (test gazv=243) Nonreactive Nonreactive HEPATITIS B SURFACE ANTIGEN (2) (BEAKER) (test Nonreactive Nonreactive thrq=8841) BASIC METABOLIC [id number] 04:02:00 Test Item Value Reference Range Comments SODIUM (BEAKER) (test 134 meq/L 136-145 bmdg=754) POTASSIUM (BEAKER) (test 3.5 meq/L 3.5-5.1 tcpm=496) CHLORIDE (BEAKER) (test 95 meq/L 98-107 keto=547) CO2 (BEAKER) (test 30 meq/L 22-29 mwss=103) BLOOD UREA NITROGEN 38 mg/dL 7-21 (BEAKER) (test lipb=219) CREATININE (BEAKER) (test 1.41 mg/dL 0.57-1.25 gpyo=630) GLUCOSE RANDOM (BEAKER) 89 mg/dL 70-105 (test rhug=028) CALCIUM (BEAKER) (test 7.6 mg/dL 8.4-10.2 vyud=671) EGFR (BEAKER) (test 52 mL/min/1.73 sq m ESTIMATED GFR IS NOT xxtp=5426) ACCURATE CREATININE CLEARANCE IN PREDICTING GLOMERULAR FILTRATION RATE. ESTIMATED GFR IS NOT APPLICABLE FOR DIALYSIS PATIENTS. [id number] 04:00:00 Test Item Value Reference Range Comments PHOSPHORUS (BEAKER) (test oxai=584) 3.0 mg/dL 2.3-4.7 [id number] 04:00:00 Test Item Value Reference Range Comments MAGNESIUM (BEAKER) (test fovv=593) 2.1 mg/dL 1.6-2.6 LACTIC ACID, VENOUS, WHOLE [id number] 03:59:00 Test Item Value Reference Range Comments LACTATE BLOOD VENOUS (2) (BEAKER) (test 0.9 mmol/L 0.5-2.2 vmps=0813) Effective 03/21/2016: Units/Reference Range ChangeNew: 0.5-2.2 mmol/L Previous: 5 -20 mg/dLOXYGEN SATURATION, [id number] 03:47:00 Test Item Value Reference Range Comments O2 SATURATION (MEASURED) (BEAKER) (test ifim=1679) 59.5 % Mixed venous from central line.POCT-GLUCOSE [id number] 03:16:00 Test Item Value Reference Range Comments POC-GLUCOSE METER (BEAKER) 112 mg/dL 70-110 TESTED AT [address] (test kjdn=4642) [facility] [address] POCT-GLUCOSE [id number] 02:12:00 Test Item Value Reference Range Comments POC-GLUCOSE METER (BEAKER) 121 mg/dL 70-110 TESTED AT [address] (test jdmz=9701) [facility] [address] POCT-GLUCOSE [id number] 01:16:00 Test Item Value Reference Range Comments POC-GLUCOSE METER (BEAKER) 141 mg/dL 70-110 TESTED AT [address] (test cyve=6779) [facility] [address] POCT-GLUCOSE [id number] 00:01:00 Test Item Value Reference Range Comments POC-GLUCOSE METER (BEAKER) 198 mg/dL 70-110 TESTED AT [address] (test cepb=0669) [facility] [address] BASIC METABOLIC [id number] 23:14:00 Test Item Value Reference Range Comments SODIUM (BEAKER) (test 129 meq/L 136-145 ulvn=532) POTASSIUM (BEAKER) (test 3.7 meq/L 3.5-5.1 fdll=159) CHLORIDE (BEAKER) (test 93 meq/L 98-107 nqnf=422) CO2 (BEAKER) (test 26 meq/L 22-29 xada=460) BLOOD UREA NITROGEN 40 mg/dL 7-21 (BEAKER) (test wxor=470) CREATININE (BEAKER) (test 1.47 mg/dL 0.57-1.25 oxnc=010) GLUCOSE RANDOM (BEAKER) 181 mg/dL 70-105 (test ntyc=311) CALCIUM (BEAKER) (test 7.2 mg/dL 8.4-10.2 dxuy=640) EGFR (BEAKER) (test 49 mL/min/1.73 sq m ESTIMATED GFR IS NOT gozm=1660) ACCURATE CREATININE CLEARANCE IN PREDICTING GLOMERULAR FILTRATION RATE. ESTIMATED GFR IS NOT APPLICABLE FOR DIALYSIS PATIENTS. 8 hours after PO replacement [id number] 23:13:00 Test Item Value Reference Range Comments POTASSIUM (BEAKER) (test hyzh=324) 3.7 meq/L 3.5-5.1 8 hours after PO replacement completedOXYGEN SATURATION, [id number] 22: 50:00 Test Item Value Reference Range Comments O2 SATURATION (MEASURED) (BEAKER) (test olqm=4943) 51.9 % POCT-GLUCOSE [id number] 22:20:00 Test Item Value Reference Range Comments POC-GLUCOSE METER (BEAKER) 220 mg/dL 70-110 TESTED AT [address] (test dyaz=8318) [place] [address] [id number] 21:20:00 Test Item Value Reference Range Comments PARTIAL THROMBOPLASTIN TIME (BEAKER) (test 62.2 seconds 22.5-36.0 eayk=222) POCT-GLUCOSE [id number] 20:47:00 Test Item Value Reference Range Comments POC-GLUCOSE METER (BEAKER) 209 mg/dL 70-110 TESTED AT [address] (test nweg=7841) [place] [address] POCT-GLUCOSE [id number] 19:51:00 Test Item Value Reference Range Comments POC-GLUCOSE METER (BEAKER) 176 mg/dL 70-110 TESTED AT [address] (test yckn=7239) [place] [address] [id number] 18:54:00 Test Item Value Reference Range Comments POTASSIUM (BEAKER) (test shib=476) 3.4 meq/L 3.5-5.1 8 hours after PO replacement completedPOCT-GLUCOSE [id number] 18:50:00 Test Item Value Reference Range Comments POC-GLUCOSE METER (BEAKER) 112 mg/dL 70-110 TESTED AT [address] (test obph=7744) [place] [address] [id number] 18:34:00 Test Item Value Reference Range Comments PARTIAL THROMBOPLASTIN TIME (BEAKER) (test 48.2 seconds 22.5-36.0 fxfm=349) POCT-GLUCOSE [id number] 18:20:00 Test Item Value Reference Range Comments POC-GLUCOSE METER (BEAKER) 48 mg/dL 70-110 Notified MELLISA GATES/TESTED AT [facility] (test judn=0931) [address] [place] [address] POCT-GLUCOSE [id number] 12:35:00 Test Item Value Reference Range Comments POC-GLUCOSE METER (BEAKER) 117 mg/dL 70-110 TESTED AT [address] (test wtzt=0734) [place] [id number] POCT-GLUCOSE [id number] 11:58:00 Test Item Value Reference Range Comments POC-GLUCOSE METER (BEAKER) 166 mg/dL 70-110 TESTED AT [address] (test dweg=9356) [place] [address] POCT-GLUCOSE [id number] 11:58:00 Test Item Value Reference Range Comments POC-GLUCOSE METER (BEAKER) 197 mg/dL 70-110 TESTED AT [address] (test jccq=7436) [place] [address] BASIC METABOLIC [id number] 10:33:00 Test Item Value Reference Range Comments SODIUM (BEAKER) (test 130 meq/L 136-145 seoa=800) POTASSIUM (BEAKER) (test 3.7 meq/L 3.5-5.1 ruso=313) CHLORIDE (BEAKER) (test 91 meq/L 98-107 hxyr=444) CO2 (BEAKER) (test 32 meq/L 22-29 gfkt=815) BLOOD UREA NITROGEN 43 mg/dL 7-21 (BEAKER) (test txer=905) CREATININE (BEAKER) (test 1.61 mg/dL 0.57-1.25 jekn=024) GLUCOSE RANDOM (BEAKER) 168 mg/dL 70-105 (test spsw=447) CALCIUM (BEAKER) (test 7.5 mg/dL 8.4-10.2 uaan=056) EGFR (BEAKER) (test 44 mL/min/1.73 sq m ESTIMATED GFR IS NOT bbyp=2400) ACCURATE CREATININE CLEARANCE IN PREDICTING GLOMERULAR FILTRATION RATE. ESTIMATED GFR IS NOT APPLICABLE FOR DIALYSIS PATIENTS. POCT-GLUCOSE [id number] 09:38:00 Test Item Value Reference Range Comments POC-GLUCOSE METER (BEAKER) 198 mg/dL 70-110 TESTED AT [address] (test mttq=4189) [place] [address] POCT-GLUCOSE [id number] 08:49:00 Test Item Value Reference Range Comments POC-GLUCOSE METER (BEAKER) 230 mg/dL 70-110 TESTED AT [facility] [address] (test fojg=4582) [facility] [address] RAD, CHEST, 1 VIEW, NON [id number] 07:44:00Reason for exam:-> hypoxemiaShould this be performed at the bedside?->YesFINAL REPORT Chest one view compared to August 04 Discussion: There is bilateral pulmonary congestion with probable bilateral atelectasis. No gross effusion or pneumothorax. IMPRESSIONS: No change Signed: Jaida Terrazas Verified Date/Time: 08/05/2017 07:44:47 Reading Location: [facility] Radiology Reading Room Electronically signed by: JAIDA TERRAZAS M.D. on 07:44 AMCBC W/PLT COUNT & AUTO [id number] 07:22:00 Test Item Value Reference Range Comments WHITE BLOOD CELL COUNT (BEAKER) (test jlzx=644) 11.1 K/ L 3.5-10.5 RED BLOOD CELL COUNT (BEAKER) (test mrrh=760) 3.03 M/ L 4.63-6.08 HEMOGLOBIN (BEAKER) (test yqfs=662) 9.1 GM/DL 13.7-17.5 HEMATOCRIT (BEAKER) (test fqyj=517) 26.4 % 40.1-51.0 MEAN CORPUSCULAR VOLUME (BEAKER) (test fkbc=549) 87.1 fL 79.0-92.2 MEAN CORPUSCULAR HEMOGLOBIN (BEAKER) (test 30.0 pg 25.7-32.2 wlis=119) MEAN CORPUSCULAR HEMOGLOBIN CONC (BEAKER) (test 34.5 GM/DL 32.3-36.5 jyyi=715) RED CELL DISTRIBUTION WIDTH (BEAKER) (test 12.6 % 11.6-14.4 lepw=815) PLATELET COUNT (BEAKER) (test pcsx=772) 195 K/CU MM 150-450 MEAN PLATELET VOLUME (BEAKER) (test aeku=752) 11.6 fL 9.4-12.4 NUCLEATED RED BLOOD CELLS (BEAKER) (test 1 /100 WBC 0-0 jxtv=139) IMMATURE GRANULOCYTES-RELATIVE PERCENT (BEAKER) 8 % 0-1 (test ysjo=1112) (MANUAL DIFFERENTIAL)2017-08-05 07:22:00 Test Item Value Reference Range Comments NEUTROPHILS - REL (DIFF) (BEAKER) (test 64 % kotq=6285) LYMPHOCYTES - REL (DIFF) (BEAKER) (test 15 % qskt=7902) MONOCYTES - REL (DIFF) (BEAKER) (test tixv=1538) 2 % EOSINOPHILS - REL (DIFF) (BEAKER) (test 1 % ksja=5686) METAMYELOCYTES-REL (DIFF) (BEAKER) (test 2 % 0-0 txzp=169) BANDS - REL (DIFF) (BEAKER) (test ckbm=6774) 16 % 0-10 NEUTROPHILS - ABS (DIFF) (BEAKER) (test 7.10 K/ L 1.80-8.00 frnn=6856) LYMPHOCYTES - ABS (DIFF) (BEAKER) (test 1.67 K/ L 1.48-4.50 ndpt=6266) MONOCYTES - ABS (DIFF) (BEAKER) (test gdsj=2071) 0.22 K/ L 0.00-1.30 EOSINOPHILS - ABS (DIFF) (BEAKER) (test 0.11 K/ L 0.00-0.50 gcmd=7202) METAMYELOCTYES - ABS (DIFF) (BEAKER) (test 0.22 K/ L 0.00-0.00 vtyy=106) BANDS-ABS (DIFF) (BEAKER) (test ybmj=9920) 1.8 K/ L 0.0-0.8 TOTAL COUNTED (BEAKER) (test kzca=9183) 100 BANDS + SEGMENTED NEUTROPHILS (BEAKER) (test 8.88 byzg=7707) MANUAL NRBC PER 100 CELLS (BEAKER) (test 2 /100 WBC 0-0 xbkj=1229) WBC MORPHOLOGY (BEAKER) (test apdf=465) Normal PLT MORPHOLOGY (BEAKER) (test zzzb=836) Normal ANISOCYTOSIS (BEAKER) (test wvsz=734) 1+ few POLYCHROMATOPHILLIC RBCS(BEAKER) (test mbad=228) 1+ few POCT-GLUCOSE [id number] 06:05:00 Test Item Value Reference Range Comments POC-GLUCOSE METER (BEAKER) 256 mg/dL 70-110 TESTED AT [facility] [address] (test xhqj=3744) [place] [address] BASIC METABOLIC [id number] 04:34:00 Test Item Value Reference Range Comments SODIUM (BEAKER) (test 128 meq/L 136-145 dxhd=084) POTASSIUM (BEAKER) (test 4.2 meq/L 3.5-5.1 ipqm=623) CHLORIDE (BEAKER) (test 91 meq/L 98-107 mljj=929) CO2 (BEAKER) (test 28 meq/L 22-29 bumg=521) BLOOD UREA NITROGEN 47 mg/dL 7-21 (BEAKER) (test vnnh=960) CREATININE (BEAKER) (test 1.71 mg/dL 0.57-1.25 mzhm=813) GLUCOSE RANDOM (BEAKER) 245 mg/dL 70-105 (test lomm=577) CALCIUM (BEAKER) (test 7.2 mg/dL 8.4-10.2 kpyo=709) EGFR (BEAKER) (test 41 mL/min/1.73 sq m ESTIMATED GFR IS NOT yqac=7714) ACCURATE CREATININE CLEARANCE IN PREDICTING GLOMERULAR FILTRATION RATE. ESTIMATED GFR IS NOT APPLICABLE FOR DIALYSIS PATIENTS. [id number] 04:33:00 Test Item Value Reference Range Comments PHOSPHORUS (BEAKER) (test kncy=533) 3.3 mg/dL 2.3-4.7 [id number] 04:33:00 Test Item Value Reference Range Comments MAGNESIUM (BEAKER) (test pvxi=721) 2.1 mg/dL 1.6-2.6 HEPATIC FUNCTION [id number] 04:33:00 Test Item Value Reference Range Comments TOTAL PROTEIN (BEAKER) (test rfcm=657) 5.3 gm/dL 6.0-8.3 ALBUMIN (BEAKER) (test lbdj=1246) 2.7 g/dL 3.5-5.0 BILIRUBIN TOTAL (BEAKER) (test eimf=092) 1.1 mg/dL 0.2-1.2 BILIRUBIN DIRECT (BEAKER) (test mtur=841) 0.5 mg/dL 0.1-0.5 ALKALINE PHOSPHATASE (BEAKER) (test hffv=729) 74 U/L 40-150 AST (SGOT) (BEAKER) (test ddix=166) 223 U/L 5-34 ALT (SGPT) (BEAKER) (test cggf=921) 933 U/L 6-55 LACTIC ACID, ARTERIAL, WHOLE [id number] 04:24:00 Test Item Value Reference Range Comments LACTATE BLOOD ARTERIAL (2) (BEAKER) (test 1.6 mmol/L 0.5-2.2 dngz=1786) Effective 03/21/2016: Units/Reference Range ChangeNew: 0.5-2.2 mmol/L Previous: 5 -20 mg/[id number] 04:23:00 Test Item Value Reference Range Comments PARTIAL THROMBOPLASTIN TIME (BEAKER) (test 79.3 seconds 22.5-36.0 yade=714) OXYGEN SATURATION, [id number] 04:16:00 Test Item Value Reference Range Comments O2 SATURATION (MEASURED) ([facility]) (test qcfy=4711) 58.7 % Mixed venous from central line.POCT-GLUCOSE [id number] 03:03:00 Test Item Value Reference Range Comments POC-GLUCOSE METER (BEAKER) 260 mg/dL 70-110 TESTED AT [address] (test fwkw=8861) [place] [address] POCT-GLUCOSE [id number] 00:11:00 Test Item Value Reference Range Comments POC-GLUCOSE METER (BEAKER) 92 mg/dL 70-110 TESTED AT [address] (test rdgn=8078) [place] [address] POCT-GLUCOSE [id number] 23:46:00 Test Item Value Reference Range Comments POC-GLUCOSE METER (BEAKER) 91 mg/dL 70-110 TESTED AT [address] (test opez=2492) [place] [address] POCT-GLUCOSE [id number] 22:52:00 Test Item Value Reference Range Comments POC-GLUCOSE METER (BEAKER) 124 mg/dL 70-110 TESTED AT [address] (test yiif=9827) [place] [address] [id number] 21:57:00 Test Item Value Reference Range Comments POTASSIUM (BEAKER) (test pxst=658) 3.5 meq/L 3.5-5.1 8 hours after PO replacement [id number] 21:57:00 Test Item Value Reference Range Comments MAGNESIUM (BEAKER) (test bmei=053) 2.4 mg/dL 1.6-2.6 8 hours after PO replacement completedPOCT-GLUCOSE [id number] 21:18:00 Test Item Value Reference Range Comments POC-GLUCOSE METER (BEAKER) 194 mg/dL 70-110 TESTED AT [address] (test dieq=4029) [place] [address] BASIC METABOLIC [id number] 17:29:00 Test Item Value Reference Range Comments SODIUM (BEAKER) (test 130 meq/L 136-145 rqed=215) POTASSIUM (BEAKER) (test 3.3 meq/L 3.5-5.1 bphj=174) CHLORIDE (BEAKER) (test 90 meq/L 98-107 ovkq=242) CO2 (BEAKER) (test 31 meq/L 22-29 unjy=364) BLOOD UREA NITROGEN 48 mg/dL 7-21 (BEAKER) (test ozmv=598) CREATININE (BEAKER) (test 1.70 mg/dL 0.57-1.25 zeie=993) GLUCOSE RANDOM (BEAKER) 181 mg/dL 70-105 (test tgjs=831) CALCIUM (BEAKER) (test 7.5 mg/dL 8.4-10.2 maiv=768) EGFR (BEAKER) (test 42 mL/min/1.73 sq m ESTIMATED GFR IS NOT iydf=5412) ACCURATE CREATININE CLEARANCE IN PREDICTING GLOMERULAR FILTRATION RATE. ESTIMATED GFR IS NOT APPLICABLE FOR DIALYSIS PATIENTS. [id number] 17:18:00 Test Item Value Reference Range Comments PARTIAL THROMBOPLASTIN TIME (BEAKER) (test 73.0 seconds 22.5-36.0 vkjq=736) POCT-GLUCOSE [id number] 15:11:00 Test Item Value Reference Range Comments POC-GLUCOSE METER (BEAKER) 194 mg/dL 70-110 TESTED AT [address] (test unyv=5275) [place] [address] LACTIC ACID, ARTERIAL, WHOLE [id number] 13:23:00 Test Item Value Reference Range Comments LACTATE BLOOD ARTERIAL (2) (BEAKER) (test 1.0 mmol/L 0.5-2.2 rbqi=9456) Effective 03/21/2016: Units/Reference Range ChangeNew: 0.5-2.2 mmol/L Previous: 5 -20 mg/dLPOCT-GLUCOSE [id number] 12:41:00 Test Item Value Reference Range Comments POC-GLUCOSE METER (BEAKER) 236 mg/dL 70-110 TESTED AT [address] (test zzsq=5874) [facility] [address] OXYGEN SATURATION, [id number] 12:31:00 Test Item Value Reference Range Comments O2 SATURATION (MEASURED) (BEAKER) (test kdcf=3610) 55.9 % Mixed venous from central line.[id number] 10:03:00 Test Item Value Reference Range Comments POTASSIUM (BEAKER) (test ihlb=790) 3.2 meq/L 3.5-5.1 Check Serum Potassium level 2 hours after oral potassium replacement completed or 30 min after intravenous potassium replacement.POCT-GLUCOSE [id number] 09:23:00 Test Item Value Reference Range Comments POC-GLUCOSE METER (BEAKER) 150 mg/dL 70-110 TESTED AT [address] (test rowq=1950) [facility] [address] RAD, CHEST, 1 VIEW, NON [id number] 09:18:00Reason for exam:-> hypoxemiaShould this be performed at the bedside?->YesFINAL REPORT AP view of the chest dated 08/04/2017 COMPARISON: 08/03/2017 CLINICAL INFORMATION: hypoxemia Comment: Heart is in upper limits of normal in size. There is prior sternotomy. Pulmonary vasculature is unremarkable. Pulmonary parenchyma disease is seen in the left lowerlobe suggestive of subsegmental atelectasis versus pneumonia. The rest of lungs are clear. No pleural effusion is present. Right IJ central venous catheter remains in place. No pneumothorax is seen. IMPRESSION: Left lower lobe subsegmental atelectasis versus pneumonia. Signed: Cherelle James Verified Date/Time: 08/04/2017 09:18:42 Reading Location: [facility] B1 C013X Ortho Consult Reading Room [id number] 06:56:00 Test Item Value Reference Range Comments PARTIAL THROMBOPLASTIN TIME (BEAKER) (test 76.8 seconds 22.5-36.0 lmws=104) POCT-GLUCOSE [id number] 06:18:00 Test Item Value Reference Range Comments POC-GLUCOSE METER (BEAKER) 118 mg/dL 70-110 TESTED AT [facility] [address] [facility] (test hmjg=4771) [facility] [address] (MANUAL DIFFERENTIAL)2017-08-04 05:23:00 Test Item Value Reference Range Comments NEUTROPHILS - REL (DIFF) (BEAKER) (test wbhl=6367) 74 % LYMPHOCYTES - REL (DIFF) (BEAKER) (test ospk=2021) 7 % MONOCYTES - REL (DIFF) (BEAKER) (test xylf=1154) 6 % EOSINOPHILS - REL (DIFF) (BEAKER) (test cdsb=4173) 2 % METAMYELOCYTES-REL (DIFF) (BEAKER) (test talw=175) 4 % 0-0 MYELOCYTES-REL (DIFF) (BEAKER) (test maxl=6377) 4 % 0-0 BANDS - REL (DIFF) (BEAKER) (test yczj=6788) 3 % 0-10 NEUTROPHILS - ABS (DIFF) (BEAKER) (test szuz=3106) 9.40 K/ L 1.80-8.00 LYMPHOCYTES - ABS (DIFF) (BEAKER) (test ckpc=9114) 0.89 K/ L 1.48-4.50 MONOCYTES - ABS (DIFF) (BEAKER) (test rnyl=1795) 0.76 K/ L 0.00-1.30 EOSINOPHILS - ABS (DIFF) (BEAKER) (test ylkh=5133) 0.25 K/ L 0.00-0.50 METAMYELOCTYES - ABS (DIFF) (BEAKER) (test 0.51 K/ L 0.00-0.00 hglx=076) BANDS-ABS (DIFF) (BEAKER) (test rcbd=8013) 0.4 K/ L 0.0-0.8 MYELOCYTES-ABS (DIFF) (BEAKER) (test ewvt=0080) 0.51 K/ L 0.00-0.00 TOTAL COUNTED (BEAKER) (test rdcm=1668) 100 BANDS + SEGMENTED NEUTROPHILS (BEAKER) (test 9.78 cemu=8167) WBC MORPHOLOGY (BEAKER) (test hpxp=441) Normal PLT MORPHOLOGY (BEAKER) (test cuqm=419) Normal POIKILOCYTES (BEAKER) (test gbns=515) 1+ few CBC W/PLT COUNT & AUTO [id number] 05:22:00 Test Item Value Reference Range Comments WHITE BLOOD CELL COUNT (BEAKER) (test fowf=757) 12.7 K/ L 3.5-10.5 RED BLOOD CELL COUNT (BEAKER) (test chuk=735) 3.04 M/ L 4.63-6.08 HEMOGLOBIN (BEAKER) (test ajnb=475) 9.1 GM/DL 13.7-17.5 HEMATOCRIT (BEAKER) (test zvdh=566) 26.6 % 40.1-51.0 MEAN CORPUSCULAR VOLUME (BEAKER) (test zfzt=224) 87.5 fL 79.0-92.2 MEAN CORPUSCULAR HEMOGLOBIN (BEAKER) (test 29.9 pg 25.7-32.2 uazz=723) MEAN CORPUSCULAR HEMOGLOBIN CONC (BEAKER) (test 34.2 GM/DL 32.3-36.5 fgvg=145) RED CELL DISTRIBUTION WIDTH (BEAKER) (test 12.4 % 11.6-14.4 armf=248) PLATELET COUNT (BEAKER) (test jhmo=422) 195 K/CU MM 150-450 MEAN PLATELET VOLUME (BEAKER) (test fauo=033) 11.4 fL 9.4-12.4 NUCLEATED RED BLOOD CELLS (BEAKER) (test 2 /100 WBC 0-0 puvg=466) IMMATURE GRANULOCYTES-RELATIVE PERCENT (BEAKER) 9 % 0-1 (test rszm=6233) BASIC METABOLIC [id number] 05:19:00 Test Item Value Reference Range Comments SODIUM (BEAKER) (test 132 meq/L 136-145 dlro=079) POTASSIUM (BEAKER) (test 3.1 meq/L 3.5-5.1 pvjr=162) CHLORIDE (BEAKER) (test 96 meq/L 98-107 obib=975) CO2 (BEAKER) (test 25 meq/L 22-29 gdcb=596) BLOOD UREA NITROGEN 44 mg/dL 7-21 (BEAKER) (test qunf=175) CREATININE (BEAKER) (test 1.45 mg/dL 0.57-1.25 xncw=775) GLUCOSE RANDOM (BEAKER) 127 mg/dL 70-105 (test hgca=236) CALCIUM (BEAKER) (test 7.1 mg/dL 8.4-10.2 qqyf=904) EGFR (BEAKER) (test 50 mL/min/1.73 sq m ESTIMATED GFR IS NOT qhrh=1374) ACCURATE CREATININE CLEARANCE IN PREDICTING GLOMERULAR FILTRATION RATE. ESTIMATED GFR IS NOT APPLICABLE FOR DIALYSIS PATIENTS. POCT-GLUCOSE [id number] 05:17:00 Test Item Value Reference Range Comments POC-GLUCOSE METER (BEAKER) 149 mg/dL 70-110 TESTED AT [address] (test olmg=8842) [facility] [address] [id number] 05:11:00 Test Item Value Reference Range Comments PHOSPHORUS (BEAKER) (test evwj=921) 2.7 mg/dL 2.3-4.7 [id number] 05:11:00 Test Item Value Reference Range Comments MAGNESIUM (BEAKER) (test pvpc=670) 1.8 mg/dL 1.6-2.6 HEPATIC FUNCTION [id number] 05:11:00 Test Item Value Reference Range Comments TOTAL PROTEIN (BEAKER) (test gutl=634) 5.3 gm/dL 6.0-8.3 ALBUMIN (BEAKER) (test qgkx=4807) 2.7 g/dL 3.5-5.0 BILIRUBIN TOTAL (BEAKER) (test dduv=860) 1.2 mg/dL 0.2-1.2 BILIRUBIN DIRECT (BEAKER) (test zzwx=628) 0.6 mg/dL 0.1-0.5 ALKALINE PHOSPHATASE (BEAKER) (test hyye=604) 78 U/L 40-150 AST (SGOT) (BEAKER) (test awfu=161) 613 U/L 5-34 ALT (SGPT) (BEAKER) (test uxjx=523) 1371 U/L 6-55 POCT-GLUCOSE [id number] 04:16:00 Test Item Value Reference Range Comments POC-GLUCOSE METER (BEAKER) 131 mg/dL 70-110 TESTED AT [facility] [address] [facility] (test kqmr=8716) [facility] [address] POCT-GLUCOSE [id number] 04:16:00 Test Item Value Reference Range Comments POC-GLUCOSE METER (BEAKER) 105 mg/dL 70-110 TESTED AT [address] (test msbt=3363) [facility] [address] POCT-GLUCOSE [id number] 02:38:00 Test Item Value Reference Range Comments POC-GLUCOSE METER (BEAKER) 90 mg/dL 70-110 TESTED AT [address] (test tmjp=1812) [place] [address] POCT-GLUCOSE [id number] 00:35:00 Test Item Value Reference Range Comments POC-GLUCOSE METER (BEAKER) 104 mg/dL 70-110 TESTED AT [address] (test sjgf=6950) [place] [address] POCT-GLUCOSE [id number] 23:46:00 Test Item Value Reference Range Comments POC-GLUCOSE METER (BEAKER) 126 mg/dL 70-110 TESTED AT [address] (test zogn=2956) [place] [address] POCT-GLUCOSE [id number] 21:13:00 Test Item Value Reference Range Comments POC-GLUCOSE METER (BEAKER) 160 mg/dL 70-110 TESTED AT [address] (test uylm=5074) [place] [address] [id number] 20:24:00 Test Item Value Reference Range Comments PARTIAL THROMBOPLASTIN TIME (BEAKER) (test 54.0 seconds 22.5-36.0 lyne=993) POCT-GLUCOSE [id number] 20:12:00 Test Item Value Reference Range Comments POC-GLUCOSE METER (BEAKER) 172 mg/dL 70-110 TESTED AT [address] (test jsbx=3742) [place] [address] POCT-GLUCOSE [id number] 15:16:00 Test Item Value Reference Range Comments POC-GLUCOSE METER (BEAKER) 102 mg/dL 70-110 TESTED AT [address] (test nfce=9116) [place] [address] [id number] 12:48:00 Test Item Value Reference Range Comments PARTIAL THROMBOPLASTIN TIME (BEAKER) (test 46.2 seconds 22.5-36.0 abis=273) POCT-GLUCOSE [id number] 11:37:00 Test Item Value Reference Range Comments POC-GLUCOSE METER (BEAKER) 109 mg/dL 70-110 TESTED AT [facility] [address] (test mxtf=3065) [facility] [address] U/S, ABDOMINAL, [id number] 09:59:00Abdomen limited area? Add comment if clarification is needed.->LiverReason for exam:->abnormalLFTFINAL REPORT Ultrasound of the Right Upper Quadrant [...] x 6.4 cm. Normal cortical echogenicity. No mass.No shadowing calculus. No hydronephrosis. IVC/Aorta: Not well seen. Impression: Diffusely increasedechogenicity of the hepatic parenchyma, a nonspecific finding which can be seen in steatosis or hepatitis. Gallbladder sludge. No sonographic evidence of acute cholecystitis. Signed: Chele Franco MDReport Verified Date/Time: 08/03/2017 09:59:59 Reading Location: [address] Body Reading Room RAD, CHEST, 1 VIEW, NON [id number] 08:05:00Reason for exam:->hypoxemiaShould this be performed at the bedside?->YesFINAL REPORT Chest one view INDICATION: Hypoxemia COMPARISON: 2016 IMPRESSION: A right jugular line and median sternotomy changes are again noted. The cardiac silhouette is enlarged. Mediastinal prominence is stable. There are low lung volumes with stable mixed interstitialand airspace opacities , in part due to edema and atelectasis. Superimposed pneumonitis cannot be excluded. Small right and possible trace left pleural effusions are present. No pneumothorax is seen. There is stable gaseous bowel loop prominence in the imaged abdomen. Signed: Lewis Dickerson MDReport Verified Date/Time: 08/03 08:05:10 Reading Location: [facility] C013V Neuro Reading Room CBC W/ PLT COUNT & AUTO [id number] 06:41:00 Test Item Value Reference Range Comments WHITE BLOOD CELL COUNT (BEAKER) (test civw=346) 11.9 K/ L 3.5-10.5 RED BLOOD CELL COUNT (BEAKER) (test fnkf=502) 2.99 M/ L 4.63-6.08 HEMOGLOBIN (BEAKER) (test uljr=491) 9.1 GM/DL 13.7-17.5 HEMATOCRIT (BEAKER) (test woed=302) 26.2 % 40.1-51.0 MEAN CORPUSCULAR VOLUME (BEAKER) (test cekz=392) 87.6 fL 79.0-92.2 MEAN CORPUSCULAR HEMOGLOBIN (BEAKER) (test 30.4 pg 25.7-32.2 rmlh=769) MEAN CORPUSCULAR HEMOGLOBIN CONC (BEAKER) (test 34.7 GM/DL 32.3-36.5 flrv=309) RED CELL DISTRIBUTION WIDTH (BEAKER) (test 12.3 % 11.6-14.4 jnlu=879) PLATELET COUNT (BEAKER) (test cpjb=082) 161 K/CU MM 150-450 MEAN PLATELET VOLUME (BEAKER) (test tcvb=857) 11.6 fL 9.4-12.4 NUCLEATED RED BLOOD CELLS (BEAKER) (test 1 /100 WBC 0-0 vbdr=705) IMMATURE GRANULOCYTES-RELATIVE PERCENT (BEAKER) 5 % 0-1 (test ixny=6799) (MANUAL DIFFERENTIAL)2017-08-03 06:41:00 Test Item Value Reference Range Comments NEUTROPHILS - REL (DIFF) (BEAKER) (test 84 % hbaz=8742) LYMPHOCYTES - REL (DIFF) (BEAKER) (test 5 % jxiw=1510) MONOCYTES - REL (DIFF) (BEAKER) (test iwpa=9467) 3 % EOSINOPHILS - REL (DIFF) (BEAKER) (test 1 % rhkc=4964) METAMYELOCYTES-REL (DIFF) (BEAKER) (test 2 % 0-0 wskd=383) MYELOCYTES-REL (DIFF) (BEAKER) (test wnlj=2697) 1 % 0-0 BANDS - REL (DIFF) (BEAKER) (test rkod=5879) 4 % 0-10 NEUTROPHILS - ABS (DIFF) (BEAKER) (test 10.00 K/ L 1.80-8.00 godg=7161) LYMPHOCYTES - ABS (DIFF) (BEAKER) (test 0.60 K/ L 1.48-4.50 unvd=5434) MONOCYTES - ABS (DIFF) (BEAKER) (test bozy=8126) 0.36 K/ L 0.00-1.30 EOSINOPHILS - ABS (DIFF) (BEAKER) (test 0.12 K/ L 0.00-0.50 ytsr=7140) METAMYELOCTYES - ABS (DIFF) (BEAKER) (test 0.24 K/ L 0.00-0.00 iwny=516) BANDS-ABS (DIFF) (BEAKER) (test uipo=0887) 0.5 K/ L 0.0-0.8 MYELOCYTES-ABS (DIFF) (BEAKER) (test uypr=6065) 0.12 K/ L 0.00-0.00 TOTAL COUNTED (BEAKER) (test xcjy=1427) 100 BANDS + SEGMENTED NEUTROPHILS (BEAKER) (test 10.47 sncd=8691) MANUAL NRBC PER 100 CELLS (BEAKER) (test 1 /100 WBC 0-0 qlbv=9163) WBC MORPHOLOGY (BEAKER) (test yvpi=386) Normal PLT MORPHOLOGY (BEAKER) (test ntfo=943) Normal RBC MORPHOLOGY (BEAKER) (test cywx=455) Normal POCT-GLUCOSE [id number] 06:13:00 Test Item Value Reference Range Comments POC-GLUCOSE METER (BEAKER) 133 mg/dL 70-110 TESTED AT [address] (test sekd=6941) [facility] [address] POCT-GLUCOSE [id number] 06:13:00 Test Item Value Reference Range Comments POC-GLUCOSE METER (BEAKER) 143 mg/dL 70-110 TESTED AT [address] (test jeaz=6290) [facility] [address] POCT-GLUCOSE [id number] 06:13:00 Test Item Value Reference Range Comments POC-GLUCOSE METER (BEAKER) 136 mg/dL 70-110 TESTED AT [facility] [address] [facility] (test ccll=3583) [facility] [address] [id number] 05:47:00 Test Item Value Reference Range Comments PARTIAL THROMBOPLASTIN TIME (BEAKER) (test 37.5 seconds 22.5-36.0 rhad=976) [id number] 05:37:00 Test Item Value Reference Range Comments PHOSPHORUS (BEAKER) (test yari=784) 1.8 mg/dL 2.3-4.7 [id number] 05:37:00 Test Item Value Reference Range Comments MAGNESIUM (BEAKER) (test jxqc=213) 2.1 mg/dL 1.6-2.6 BASIC METABOLIC [id number] 05:37:00 Test Item Value Reference Range Comments SODIUM (BEAKER) (test 133 meq/L 136-145 lgti=553) POTASSIUM (BEAKER) (test 4.1 meq/L 3.5-5.1 mmyf=227) CHLORIDE (BEAKER) (test 96 meq/L 98-107 dntp=524) CO2 (BEAKER) (test 27 meq/L 22-29 lupl=077) BLOOD UREA NITROGEN 40 mg/dL 7-21 (BEAKER) (test hgry=699) CREATININE (BEAKER) (test 1.15 mg/dL 0.57-1.25 eugy=526) GLUCOSE RANDOM (BEAKER) 134 mg/dL 70-105 (test ljij=504) CALCIUM (BEAKER) (test 8.0 mg/dL 8.4-10.2 gnep=542) EGFR (BEAKER) (test 65 mL/min/1.73 sq m ESTIMATED GFR IS NOT bdpy=9083) ACCURATE CREATININE CLEARANCE IN PREDICTING GLOMERULAR FILTRATION RATE. ESTIMATED GFR IS NOT APPLICABLE FOR DIALYSIS PATIENTS. HEPATIC FUNCTION [id number] 05:37:00 Test Item Value Reference Range Comments TOTAL PROTEIN (BEAKER) (test hcld=114) 5.6 gm/dL 6.0-8.3 ALBUMIN (BEAKER) (test lzyp=3874) 2.8 g/dL 3.5-5.0 BILIRUBIN TOTAL (BEAKER) (test rete=544) 1.1 mg/dL 0.2-1.2 BILIRUBIN DIRECT (BEAKER) (test zvzh=971) 0.6 mg/dL 0.1-0.5 ALKALINE PHOSPHATASE (BEAKER) (test twaf=516) 86 U/L 40-150 AST (SGOT) (BEAKER) (test uqyv=691) 795 U/L 5-34 ALT (SGPT) (BEAKER) (test awbo=328) 1649 U/L 6-55 CREATINE KINASE (CK)2017-08-03 05:37:00 Test Item Value Reference Range Comments CREATINE KINASE TOTAL (BEAKER) (test oexa=924) 1216 U/L 29-200 OXYGEN SATURATION, [id number] 05:34:00 Test Item Value Reference Range Comments O2 SATURATION (MEASURED) (BEAKER) (test wzew=0743) 51.5 % POCT-GLUCOSE [id number] 01:44:00 Test Item Value Reference Range Comments POC-GLUCOSE METER (BEAKER) 101 mg/dL 70-110 TESTED AT [address] (test zgyx=5464) [place] [id number] POCT-GLUCOSE [id number] 01:44:00 Test Item Value Reference Range Comments POC-GLUCOSE METER (BEAKER) 82 mg/dL 70-110 TESTED AT [address] (test etwg=8713) [place] [id number] POCT-GLUCOSE [id number] 01:44:00 Test Item Value Reference Range Comments POC-GLUCOSE METER (BEAKER) 111 mg/dL 70-110 TESTED AT [address] (test whjn=0861) [place] [id number] POCT-GLUCOSE [id number] 01:44:00 Test Item Value Reference Range Comments POC-GLUCOSE METER (BEAKER) 129 mg/dL 70-110 TESTED AT [address] (test lkaj=9764) [facility] [address] [id number] 23:10:00 Test Item Value Reference Range Comments PARTIAL THROMBOPLASTIN TIME (BEAKER) (test 32.3 seconds 22.5-36.0 mexc=393) POCT-GLUCOSE [id number] 22:53:00 Test Item Value Reference Range Comments POC-GLUCOSE METER (BEAKER) 152 mg/dL 70-110 TESTED AT [address] (test cqjy=7862) [facility] [address] OXYGEN SATURATION, [id number] 22:00:00 Test Item Value Reference Range Comments O2 SATURATION (MEASURED) (BEAKER) (test spry=8937) 48.0 % BASIC METABOLIC [id number] 20:43:00 Test Item Value Reference Range Comments SODIUM (BEAKER) (test 132 meq/L 136-145 ftkl=447) POTASSIUM (BEAKER) (test 4.0 meq/L 3.5-5.1 tdco=735) CHLORIDE (BEAKER) (test 97 meq/L 98-107 bfrk=442) CO2 (BEAKER) (test 24 meq/L 22-29 qpqs=396) BLOOD UREA NITROGEN 39 mg/dL 7-21 (BEAKER) (test aeus=956) CREATININE (BEAKER) (test 1.14 mg/dL 0.57-1.25 csob=415) GLUCOSE RANDOM (BEAKER) 149 mg/dL 70-105 (test lbgo=189) CALCIUM (BEAKER) (test 7.8 mg/dL 8.4-10.2 fkgm=566) EGFR (BEAKER) (test 66 mL/min/1.73 sq m ESTIMATED GFR IS NOT kbzf=3303) ACCURATE CREATININE CLEARANCE IN PREDICTING GLOMERULAR FILTRATION RATE. ESTIMATED GFR IS NOT APPLICABLE FOR DIALYSIS PATIENTS. [id number] 20:38:00 Test Item Value Reference Range Comments MAGNESIUM (BEAKER) (test tbdh=070) 2.0 mg/dL 1.6-2.6 POCT-GLUCOSE [id number] 20:10:00 Test Item Value Reference Range Comments POC-GLUCOSE METER (BEAKER) 159 mg/dL 70-110 TESTED AT [address] (test stmj=9833) [facility] [address] POCT-GLUCOSE [id number] 18:58:00 Test Item Value Reference Range Comments POC-GLUCOSE METER (BEAKER) 173 mg/dL 70-110 TESTED AT [address] (test vyja=6167) [facility] [address] [id number] 17:45:00 Test Item Value Reference Range Comments PARTIAL THROMBOPLASTIN TIME (BEAKER) (test 30.1 seconds 22.5-36.0 dbkt=578) POCT-GLUCOSE [id number] 17:24:00 Test Item Value Reference Range Comments POC-GLUCOSE METER (BEAKER) 174 mg/dL 70-110 TESTED AT [address] (test dbcl=7999) [place] [address] CREATINE KINASE (CK)2017-08-02 16:08:00 Test Item Value Reference Range Comments CREATINE KINASE TOTAL (BEAKER) (test rfxz=311) 1799 U/L 29-200 POCT-GLUCOSE [id number] 15:44:00 Test Item Value Reference Range Comments POC-GLUCOSE METER (BEAKER) 174 mg/dL 70-110 TESTED AT [address] (test uljs=8685) [place] [address] OXYGEN SATURATION, [id number] 15:44:00 Test Item Value Reference Range Comments O2 SATURATION (MEASURED) (BEAKER) (test vakx=3635) 50.2 % BLOOD GAS, [id number] 15:40:00 Test Item Value Reference Range Comments PH ARTERIAL (BEAKER) (test lkwc=539) 7.46 7.35-7.45 PCO2 ARTERIAL (BEAKER) (test zqpb=333) 35 mmHg 35-45 PO2 ARTERIAL (BEAKER) (test lktn=252) 244 mmHg 80-90 O2 SATURATION ARTERIAL (BEAKER) (test dpsh=975) 99.6 % 96.0-97.0 HCO3 ARTERIAL (BEAKER) (test imzc=654) 25 mmol/L 21-29 BASE EXCESS ARTERIAL (BEAKER) (test wrhm=021) 0.6 mmol/L -2.0-3.0 PATIENT TEMPERATURE (BEAKER) (test tfvx=7298) 36.5 C FIO2 (BEAKER) (test kysv=0742) 100.0 % POCT-GLUCOSE [id number] 14:08:00 Test Item Value Reference Range Comments POC-GLUCOSE METER (BEAKER) 141 mg/dL 70-110 TESTED AT [address] (test fcpl=2811) [place] [id number] POCT-GLUCOSE [id number] 13:22:00 Test Item Value Reference Range Comments POC-GLUCOSE METER (BEAKER) 97 mg/dL 70-110 TESTED AT [address] (test eenj=1712) [place] [address] HEPATIC FUNCTION [id number] 12:02:00 Test Item Value Reference Range Comments TOTAL PROTEIN (BEAKER) (test dhhc=626) 5.7 gm/dL 6.0-8.3 ALBUMIN (BEAKER) (test gyyt=8077) 2.8 g/dL 3.5-5.0 BILIRUBIN TOTAL (BEAKER) (test soqq=776) 1.0 mg/dL 0.2-1.2 BILIRUBIN DIRECT (BEAKER) (test fytk=003) 0.6 mg/dL 0.1-0.5 ALKALINE PHOSPHATASE (BEAKER) (test racs=140) 69 U/L 40-150 AST (SGOT) (BEAKER) (test kdeq=735) 812 U/L 5-34 ALT (SGPT) (BEAKER) (test dbpt=750) 1604 U/L 6-55 [id number] 11:11:00 Test Item Value Reference Range Comments PARTIAL THROMBOPLASTIN TIME (BEAKER) (test 28.6 seconds 22.5-36.0 pkli=402) 6 hours after starting heparin infusion and as indicated per sliding scalePOCT- GLUCOSE [id number] 10:59:00 Test Item Value Reference Range Comments POC-GLUCOSE METER (BEAKER) 105 mg/dL 70-110 TESTED AT [facility] [address] [facility] (test rhdc=2743) [facility] [address] BLOOD GAS, [id number] 10:58:00 Test Item Value Reference Range Comments PH ARTERIAL (BEAKER) (test uydz=936) 7.49 7.35-7.45 PCO2 ARTERIAL (BEAKER) (test hvze=613) 36 mmHg 35-45 PO2 ARTERIAL (BEAKER) (test xogx=648) 153 mmHg 80-90 O2 SATURATION ARTERIAL (BEAKER) (test abdn=668) 99.1 % 96.0-97.0 HCO3 ARTERIAL (BEAKER) (test qsab=870) 26 mmol/L 21-29 BASE EXCESS ARTERIAL (BEAKER) (test jfjx=636) 3.0 mmol/L -2.0-3.0 PATIENT TEMPERATURE (BEAKER) (test zjno=7910) 37.0 C FIO2 (BEAKER) (test tsfj=8416) 100.0 % LACTIC ACID, ARTERIAL, WHOLE [id number] 10:28:00 Test Item Value Reference Range Comments LACTATE BLOOD ARTERIAL (2) (BEAKER) (test 1.1 mmol/L 0.5-2.2 jnom=3650) Effective 03/21/2016: Units/Reference Range ChangeNew: 0.5-2.2 mmol/L Previous: 5 -20 mg/dLPOCT-GLUCOSE [id number] 08:55:00 Test Item Value Reference Range Comments POC-GLUCOSE METER (BEAKER) 111 mg/dL 70-110 TESTED AT [address] (test bvce=5653) [facility] [address] HEMOGLOBIN AND [id number] 08:53:00 Test Item Value Reference Range Comments HEMOGLOBIN (BEAKER) (test fbiw=242) 9.1 GM/DL 13.7-17.5 HEMATOCRIT (BEAKER) (test odir=119) 26.7 % 40.1-51.0 POCT-GLUCOSE [id number] 06:28:00 Test Item Value Reference Range Comments POC-GLUCOSE METER (BEAKER) 122 mg/dL 70-110 TESTED AT [address] (test ikwx=9386) [facility] [address] OXYGEN SATURATION, [id number] 06:07:00 Test Item Value Reference Range Comments O2 SATURATION (MEASURED) (BEAKER) (test hhjf=4815) 61.5 % CBC W/PLT COUNT & AUTO [id number] 06:04:00 Test Item Value Reference Range Comments WHITE BLOOD CELL COUNT (BEAKER) (test ymbr=021) 11.1 K/ L 3.5-10.5 RED BLOOD CELL COUNT (BEAKER) (test wzro=713) 2.98 M/ L 4.63-6.08 HEMOGLOBIN (BEAKER) (test vzak=001) 9.1 GM/DL 13.7-17.5 HEMATOCRIT (BEAKER) (test oico=968) 26.7 % 40.1-51.0 MEAN CORPUSCULAR VOLUME (BEAKER) (test myxp=238) 89.6 fL 79.0-92.2 MEAN CORPUSCULAR HEMOGLOBIN (BEAKER) (test 30.5 pg 25.7-32.2 bnue=675) MEAN CORPUSCULAR HEMOGLOBIN CONC (BEAKER) (test 34.1 GM/DL 32.3-36.5 ywqa=528) RED CELL DISTRIBUTION WIDTH (BEAKER) (test 12.7 % 11.6-14.4 jeyi=152) PLATELET COUNT (BEAKER) (test zxxj=202) 102 K/CU MM 150-450 MEAN PLATELET VOLUME (BEAKER) (test uwda=400) 12.2 fL 9.4-12.4 NUCLEATED RED BLOOD CELLS (BEAKER) (test 0 /100 WBC 0-0 skpx=119) NEUTROPHILS RELATIVE PERCENT (BEAKER) (test 84 % dhsv=631) LYMPHOCYTES RELATIVE PERCENT (BEAKER) (test 8 % gkrk=916) MONOCYTES RELATIVE PERCENT (BEAKER) (test 6 % brvr=222) EOSINOPHILS RELATIVE PERCENT (BEAKER) (test 0 % urae=044) BASOPHILS RELATIVE PERCENT (BEAKER) (test 0 % otvj=139) NEUTROPHILS ABSOLUTE COUNT (BEAKER) (test 9.31 K/ L 1.78-5.38 meld=308) LYMPHOCYTES ABSOLUTE COUNT (BEAKER) (test 0.90 K/ L 1.32-3.57 ordk=102) MONOCYTES ABSOLUTE COUNT (BEAKER) (test 0.63 K/ L 0.30-0.82 xvmy=985) EOSINOPHILS ABSOLUTE COUNT (BEAKER) (test 0.04 K/ L 0.04-0.54 jflp=800) BASOPHILS ABSOLUTE COUNT (BEAKER) (test 0.02 K/ L 0.01-0.08 wyeu=544) IMMATURE GRANULOCYTES-RELATIVE PERCENT (BEAKER) 2 % 0-1 (test tuyd=6692) POCT-GLUCOSE [id number] 05:47:00 Test Item Value Reference Range Comments POC-GLUCOSE METER (BEAKER) 121 mg/dL 70-110 TESTED AT [address] (test sjjm=8175) [facility] [address] RAD, CHEST, 1 VIEW, NON [id number] 05:45:00Reason for exam:->s/p ACBShould this be performed at the bedside?->YesFINAL REPORT RAD, CHEST, 1 VIEW, NON DEPT INDICATION: s/p ACB COMPARISON: Prior day' s exam TECHNIQUE: Portable frontal view of the chest. IMPRESSION: Interval removal of all chest tubes. Stable right IJ line. Worsening interstitial edema.Cardiomediastinal silhouette stable.Streaky opacities in the mid right lung and left lung base likely reflecting atelectasis.No acute osseousabnormality. Signed: Alice Moore MDReport Verified Date/Time: 08/02 05:45:27 Reading Location: [facility] B1 C013X Ortho Consult Reading Room RAD, ABDOMEN/ KUB, 1 VIEW [id number] 05:44:00Reason for exam:->DistentionFINAL REPORT RAD, ABDOMEN/KUB, 1 VIEW AP CLINICAL INDICATION: "Distention"COMPARISON: None TECHNIQUE: Single, frontal radiograph of the abdomen. IMPRESSION: Prominent but not dilated, air-filled loops of small bowel in the left hemiabdomen.Nondistended, air-filled loops of colon.Overall pattern is nonspecific. There is no high-grade obstruction at this time.No pneumatosis or obvious pneumoperitoneum.No acute osseous abnormality. Signed: Alice Moore MDReport Verified Date/Time: 08/02/2017 05:44:54 Reading Location: [facility] B1 C013X Ortho Consult Reading Room [id number] 05:31:00 Test Item Value Reference Range Comments POTASSIUM (BEAKER) (test lkhw=432) 4.5 meq/L 3.5-5.1 [id number] 05:31:00 Test Item Value Reference Range Comments PHOSPHORUS (BEAKER) (test nmmv=621) 2.4 mg/dL 2.3-4.7 BASIC METABOLIC [id number] 05:31:00 Test Item Value Reference Range Comments SODIUM (BEAKER) (test 133 meq/L 136-145 qbdo=050) POTASSIUM (BEAKER) (test 4.5 meq/L 3.5-5.1 pzre=986) CHLORIDE (BEAKER) (test 101 meq/L 98-107 ujzv=589) CO2 (BEAKER) (test 21 meq/L 22-29 rguk=487) BLOOD UREA NITROGEN 44 mg/dL 7-21 (BEAKER) (test ennp=632) CREATININE (BEAKER) (test 1.15 mg/dL 0.57-1.25 cicz=861) GLUCOSE RANDOM (BEAKER) 116 mg/dL 70-105 (test qoac=664) CALCIUM (BEAKER) (test 8.1 mg/dL 8.4-10.2 vemi=192) EGFR (BEAKER) (test 65 mL/min/1.73 sq m ESTIMATED GFR IS NOT nxwv=9081) ACCURATE CREATININE CLEARANCE IN PREDICTING GLOMERULAR FILTRATION RATE. ESTIMATED GFR IS NOT APPLICABLE FOR DIALYSIS PATIENTS. POCT-GLUCOSE [id number] 04:47:00 Test Item Value Reference Range Comments POC-GLUCOSE METER (BEAKER) 124 mg/dL 70-110 TESTED AT [address] (test qygu=5661) [place] [address] POCT-GLUCOSE [id number] 03:44:00 Test Item Value Reference Range Comments POC-GLUCOSE METER (BEAKER) 123 mg/dL 70-110 TESTED AT [address] (test bpet=5453) [place] [address] POCT-GLUCOSE [id number] 03:06:00 Test Item Value Reference Range Comments POC-GLUCOSE METER (BEAKER) 91 mg/dL 70-110 TESTED AT [address] (test vpdy=2520) [place] [address] [id number] 02:16:00 Test Item Value Reference Range Comments MAGNESIUM (BEAKER) (test pevq=564) 2.0 mg/dL 1.6-2.6 POCT-GLUCOSE [id number] 02:07:00 Test Item Value Reference Range Comments POC-GLUCOSE METER (BEAKER) 111 mg/dL 70-110 TESTED AT [address] (test fonb=0121) [place] [address] POCT-GLUCOSE [id number] 01:16:00 Test Item Value Reference Range Comments POC-GLUCOSE METER (BEAKER) 123 mg/dL 70-110 TESTED AT [address] (test cgcz=0513) [place] [address] [id number] 01:03:00 Test Item Value Reference Range Comments POTASSIUM (BEAKER) (test mbkf=300) 4.4 meq/L 3.5-5.1 HEMOGLOBIN AND [id number] 00:57:00 Test Item Value Reference Range Comments HEMOGLOBIN (BEAKER) (test nzgq=887) 8.8 GM/DL 13.7-17.5 HEMATOCRIT (BEAKER) (test mbxq=968) 25.9 % 40.1-51.0 POCT-GLUCOSE [id number] 00:31:00 Test Item Value Reference Range Comments POC-GLUCOSE METER (BEAKER) 141 mg/dL 70-110 TESTED AT [address] (test zaur=2031) [place] [address] POCT-GLUCOSE [id number] 23:05:00 Test Item Value Reference Range Comments POC-GLUCOSE METER (BEAKER) 149 mg/dL 70-110 TESTED AT [address] (test rbrd=6318) [place] [address] POCT-GLUCOSE [id number] 22:04:00 Test Item Value Reference Range Comments POC-GLUCOSE METER (BEAKER) 161 mg/dL 70-110 TESTED AT [address] (test nwno=4474) [place] [address] [id number] 21:39:00 Test Item Value Reference Range Comments POTASSIUM (BEAKER) (test qyxv=431) 4.7 meq/L 3.5-5.1 HEMOGLOBIN AND [id number] 21:16:00 Test Item Value Reference Range Comments HEMOGLOBIN (BEAKER) (test xqvs=788) 8.4 GM/DL 13.7-17.5 HEMATOCRIT (BEAKER) (test kzns=474) 25.2 % 40.1-51.0 POCT-GLUCOSE [id number] 20:46:00 Test Item Value Reference Range Comments POC-GLUCOSE METER (BEAKER) 169 mg/dL 70-110 TESTED AT [address] (test urib=5556) [place] [address] POCT-GLUCOSE [id number] 19:40:00 Test Item Value Reference Range Comments POC-GLUCOSE METER (BEAKER) 201 mg/dL 70-110 TESTED AT [address] (test wlpk=6537) [place] [address] POCT-GLUCOSE [id number] 18:51:00 Test Item Value Reference Range Comments POC-GLUCOSE METER (BEAKER) 228 mg/dL 70-110 TESTED AT [address] (test idwr=1480) [place] [address] BASIC METABOLIC [id number] 18:02:00 Test Item Value Reference Range Comments SODIUM (BEAKER) (test 131 meq/L 136-145 mszh=580) POTASSIUM (BEAKER) (test 4.9 meq/L 3.5-5.1 skod=674) CHLORIDE (BEAKER) (test 100 meq/L 98-107 hzch=207) CO2 (BEAKER) (test 22 meq/L 22-29 hpkh=985) BLOOD UREA NITROGEN 51 mg/dL 7-21 (BEAKER) (test pmuv=803) CREATININE (BEAKER) (test 1.44 mg/dL 0.57-1.25 ecdy=520) GLUCOSE RANDOM (BEAKER) 231 mg/dL 70-105 (test qnec=610) CALCIUM (BEAKER) (test 8.5 mg/dL 8.4-10.2 kotn=137) EGFR (BEAKER) (test 50 mL/min/1.73 sq m ESTIMATED GFR IS NOT pxfg=8210) ACCURATE CREATININE CLEARANCE IN PREDICTING GLOMERULAR FILTRATION RATE. ESTIMATED GFR IS NOT APPLICABLE FOR DIALYSIS PATIENTS. OXYGEN SATURATION, [id number] 17:07:00 Test Item Value Reference Range Comments O2 SATURATION (MEASURED) (BEAKER) (test kafy=4556) 60.3 % U/S, RENAL WITH [id number] 16:36:00Reason for exam:->akiFINAL REPORT TECHNIQUE: Grayscale, color Doppler, and spectral Doppler ultrasound of the kidneys and bladder. INDICATION: 56-year-old man with acute kidney injury. COMPARISON: None. FINDINGS:Markedly limited evaluation of the renal vasculature secondary [...] detailed above. Trace ascites in the pelvis. Signed : Evan Artis MDReportVerified Date/Time: 08/01/2017 16:36:54 Reading Location: [facility] B1 P006J Ultrasound Reading Room POCT-GLUCOSE [id number] 15: 22:00 Test Item Value Reference Range Comments POC-GLUCOSE METER (BEAKER) 325 mg/dL 70-110 TESTED AT [address] (test nndz=8334) [place] [address] RAD, CHEST, 1 VIEW, NON [id number] 13:30:00Reason for exam:->chest tubesFINAL REPORT TECHNIQUE: Frontal chest radiograph dated 08/01/2017. CLINICAL HISTORY: Chest tubes COMPARISON STUDY: Chest radiograph dated 07/31/2017 IMPRESSION:The left sided vascular line has been removed. Remaining life support tube and line are unchanged. Atelectasis is seen in the lung bases. No pleural effusion or pneumothorax. Cardiomediastinal silhouette is normal in size. No pulmonary edema. Midline sternotomy wires are intact and well aligned. No fracture. Signed: Annie Rubalcava MDReport Verified Date/Time: 08/01/2017 13:30:25 Reading Location: [facility] Radiology Reading Room Electronically signed by: ANNIE RUBALCAVA on 2016 01:30 PMPOCT-GLUCOSE [id number] 13:21:00 Test Item Value Reference Range Comments POC-GLUCOSE METER (BEAKER) 295 mg/dL 70-110 TESTED AT [address] (test rsrm=4978) [place] [address] [id number] 13:15:00 Test Item Value Reference Range Comments POTASSIUM (BEAKER) (test bjqs=136) 5.2 meq/L 3.5-5.1 POCT-GLUCOSE [id number] 11:05:00 Test Item Value Reference Range Comments POC-GLUCOSE METER (BEAKER) 311 mg/dL 70-110 TESTED AT [address] (test emdy=5229) [place] [address] [id number] 10:54:00 Test Item Value Reference Range Comments POTASSIUM (BEAKER) (test yium=960) 5.7 meq/L 3.5-5.1 LACTIC ACID, ARTERIAL, WHOLE [id number] 10:49:00 Test Item Value Reference Range Comments LACTATE BLOOD ARTERIAL (2) (BEAKER) (test 2.6 mmol/L 0.5-2.2 akyi=7291) Effective 03/21/2016: Units/Reference Range ChangeNew: 0.5-2.2 mmol/L Previous: 5 -20 mg/dLOXYGEN SATURATION, [id number] 10:39:00 Test Item Value Reference Range Comments O2 SATURATION (MEASURED) (BEAKER) (test xalr=3977) 30.8 % POCT-GLUCOSE [id number] 10:16:00 Test Item Value Reference Range Comments POC-GLUCOSE METER (BEAKER) 364 mg/dL 70-110 Notified MELLISA GATES/TESTED AT [facility] (test vtma=3262) [facility] [address] [facility] [address] POCT-GLUCOSE [id number] 09:02:00 Test Item Value Reference Range Comments POC-GLUCOSE METER (BEAKER) 321 mg/dL 70-110 Notified MELLISA GATES/TESTED AT [facility] (test yjcl=4673) [facility] [address] [facility] [address] HEMOGLOBIN AND [id number] 08:23:00 Test Item Value Reference Range Comments HEMOGLOBIN (BEAKER) (test zoxf=777) 8.0 GM/DL 13.7-17.5 HEMATOCRIT (BEAKER) (test bdfq=131) 23.5 % 40.1-51.0 [id number] 08:20:00 Test Item Value Reference Range Comments POTASSIUM (BEAKER) (test idwv=466) 6.0 meq/L 3.5-5.1 [id number] 07:31:00 Test Item Value Reference Range Comments GLUCOSE RANDOM (BEAKER) (test ewfv=254) 345 mg/dL 70-105 POCT-GLUCOSE [id number] 06:50:00 Test Item Value Reference Range Comments POC-GLUCOSE METER (BEAKER) 373 mg/dL 70-110 TESTED AT [place] [address] [address] (test ayof=3616) [facility] [address] POCT-GLUCOSE [id number] 06:39:00 Test Item Value Reference Range Comments POC-GLUCOSE METER (BEAKER) 371 mg/dL 70-110 TESTED AT [facility] [address] (test dkvz=9679) [place] [address] [id number] 04:16:00 Test Item Value Reference Range Comments PHOSPHORUS (BEAKER) (test unkv=988) 2.7 mg/dL 2.3-4.7 [id number] 04:16:00 Test Item Value Reference Range Comments MAGNESIUM (BEAKER) (test ztxp=841) 2.2 mg/dL 1.6-2.6 BASIC METABOLIC [id number] 04:16:00 Test Item Value Reference Range Comments SODIUM (BEAKER) (test 131 meq/L 136-145 hpwl=281) POTASSIUM (BEAKER) (test 5.9 meq/L 3.5-5.1 fugk=500) CHLORIDE (BEAKER) (test 100 meq/L 98-107 qmhq=236) CO2 (BEAKER) (test 22 meq/L 22-29 jzzl=182) BLOOD UREA NITROGEN 43 mg/dL 7-21 (BEAKER) (test vpaz=638) CREATININE (BEAKER) (test 1.53 mg/dL 0.57-1.25 wwhr=095) GLUCOSE RANDOM (BEAKER) 361 mg/dL 70-105 (test gmcu=740) CALCIUM (BEAKER) (test 9.0 mg/dL 8.4-10.2 rgue=491) EGFR (BEAKER) (test 47 mL/min/1.73 sq m ESTIMATED GFR IS NOT ggja=5263) ACCURATE CREATININE CLEARANCE IN PREDICTING GLOMERULAR FILTRATION RATE. ESTIMATED GFR IS NOT APPLICABLE FOR DIALYSIS PATIENTS. CBC W/PLT COUNT & AUTO [id number] 04:04:00 Test Item Value Reference Range Comments WHITE BLOOD CELL COUNT (BEAKER) (test brhy=514) 12.0 K/ L 3.5-10.5 RED BLOOD CELL COUNT (BEAKER) (test bnxv=300) 2.74 M/ L 4.63-6.08 HEMOGLOBIN (BEAKER) (test fykp=297) 8.3 GM/DL 13.7-17.5 HEMATOCRIT (BEAKER) (test show=706) 24.7 % 40.1-51.0 MEAN CORPUSCULAR VOLUME (BEAKER) (test cxue=847) 90.1 fL 79.0-92.2 MEAN CORPUSCULAR HEMOGLOBIN (BEAKER) (test 30.3 pg 25.7-32.2 zrmv=944) MEAN CORPUSCULAR HEMOGLOBIN CONC (BEAKER) (test 33.6 GM/DL 32.3-36.5 ncbu=356) RED CELL DISTRIBUTION WIDTH (BEAKER) (test 12.5 % 11.6-14.4 yqtm=355) PLATELET COUNT (BEAKER) (test vtmd=362) 120 K/CU MM 150-450 MEAN PLATELET VOLUME (BEAKER) (test xbfp=312) 11.8 fL 9.4-12.4 NUCLEATED RED BLOOD CELLS (BEAKER) (test 0 /100 WBC 0-0 taxr=688) NEUTROPHILS RELATIVE PERCENT (BEAKER) (test 85 % ubyk=523) LYMPHOCYTES RELATIVE PERCENT (BEAKER) (test 6 % pfai=029) MONOCYTES RELATIVE PERCENT (BEAKER) (test 9 % qrfi=786) EOSINOPHILS RELATIVE PERCENT (BEAKER) (test 0 % lahe=449) BASOPHILS RELATIVE PERCENT (BEAKER) (test 0 % xynp=936) NEUTROPHILS ABSOLUTE COUNT (BEAKER) (test 10.12 K/ L 1.78-5.38 iqzr=151) LYMPHOCYTES ABSOLUTE COUNT (BEAKER) (test 0.71 K/ L 1.32-3.57 deta=178) MONOCYTES ABSOLUTE COUNT (BEAKER) (test 1.02 K/ L 0.30-0.82 mjuv=119) EOSINOPHILS ABSOLUTE COUNT (BEAKER) (test 0.00 K/ L 0.04-0.54 clin=858) BASOPHILS ABSOLUTE COUNT (BEAKER) (test 0.00 K/ L 0.01-0.08 hpyk=967) IMMATURE GRANULOCYTES-RELATIVE PERCENT (BEAKER) 1 % 0-1 (test vmyl=6145) POCT-GLUCOSE [id number] 01:54:00 Test Item Value Reference Range Comments POC-GLUCOSE METER (BEAKER) 403 mg/dL 70-110 Notified MELLISA GATES/TESTED AT [facility] (test cdck=1427) [address] [facility] [address] HEMOGLOBIN AND [id number] 01:47:00 Test Item Value Reference Range Comments HEMOGLOBIN (BEAKER) (test bght=215) 8.7 GM/DL 13.7-17.5 HEMATOCRIT (BEAKER) (test zxdk=378) 25.8 % 40.1-51.0 BASIC METABOLIC [id number] 23:56:00 Test Item Value Reference Range Comments SODIUM (BEAKER) (test 134 meq/L 136-145 mvyb=022) POTASSIUM (BEAKER) (test 5.2 meq/L 3.5-5.1 kpgk=592) CHLORIDE (BEAKER) (test 102 meq/L 98-107 xwqe=126) CO2 (BEAKER) (test 22 meq/L 22-29 qcyo=362) BLOOD UREA NITROGEN 35 mg/dL 7-21 (BEAKER) (test dygn=587) CREATININE (BEAKER) (test 1.35 mg/dL 0.57-1.25 ovtw=323) GLUCOSE RANDOM (BEAKER) 334 mg/dL 70-105 (test kfou=650) CALCIUM (BEAKER) (test 9.4 mg/dL 8.4-10.2 vdrl=686) EGFR (BEAKER) (test 54 mL/min/1.73 sq m ESTIMATED GFR IS NOT kqfc=3849) ACCURATE CREATININE CLEARANCE IN PREDICTING GLOMERULAR FILTRATION RATE. ESTIMATED GFR IS NOT APPLICABLE FOR DIALYSIS PATIENTS. POCT-GLUCOSE [id number] 23:10:00 Test Item Value Reference Range Comments POC-GLUCOSE METER (BEAKER) 344 mg/dL 70-110 Notified MELLISA GATES/TESTED AT [facility] (test qwbk=4497) [address] [facility] [address] BLOOD GAS, [id number] 23:04:00 Test Item Value Reference Range Comments PH ARTERIAL (BEAKER) (test pfat=826) 7.40 7.35-7.45 PCO2 ARTERIAL (BEAKER) (test twko=890) 41 mm Hg 35-45 PO2 ARTERIAL (BEAKER) (test kfyu=606) 69 mm Hg 80-90 O2 SATURATION ARTERIAL (BEAKER) (test hajp=251) 93.9 % 96.0-97.0 HCO3 ARTERIAL (BEAKER) (test volr=548) 25 mmol/L 21-29 BASE EXCESS ARTERIAL (BEAKER) (test yxwm=590) 0.0 mmol/L -2.0-3.0 PATIENT TEMPERATURE (BEAKER) (test bwls=6020) 37.0 OXYGEN SATURATION, [id number] 23:01:00 Test Item Value Reference Range Comments O2 SATURATION (MEASURED) (BEAKER) (test htxn=2394) 47.5 % [id number] 19:02:00 Test Item Value Reference Range Comments POTASSIUM (BEAKER) (test loqi=794) 6.0 meq/L 3.5-5.1 BASIC METABOLIC [id number] 17:34:00 Test Item Value Reference Range Comments SODIUM (BEAKER) (test 135 meq/L 136-145 sacu=393) POTASSIUM (BEAKER) (test 5.7 meq/L 3.5-5.1 qdwo=823) CHLORIDE (BEAKER) (test 105 meq/L 98-107 aorx=338) CO2 (BEAKER) (test 21 meq/L 22-29 uoji=524) BLOOD UREA NITROGEN 34 mg/dL 7-21 (BEAKER) (test ohps=589) CREATININE (BEAKER) (test 1.17 mg/dL 0.57-1.25 pzya=279) GLUCOSE RANDOM (BEAKER) 219 mg/dL 70-105 (test betv=700) CALCIUM (BEAKER) (test 8.4 mg/dL 8.4-10.2 lzwv=669) EGFR (BEAKER) (test 64 mL/min/1.73 sq m ESTIMATED GFR IS NOT kutg=4353) ACCURATE CREATININE CLEARANCE IN PREDICTING GLOMERULAR FILTRATION RATE. ESTIMATED GFR IS NOT APPLICABLE FOR DIALYSIS PATIENTS. HEMOGLOBIN AND [id number] 17:20:00 Test Item Value Reference Range Comments HEMOGLOBIN (BEAKER) (test fcwm=890) 8.6 GM/DL 13.7-17.5 HEMATOCRIT (BEAKER) (test kazq=416) 26.3 % 40.1-51.0 POCT-GLUCOSE [id number] 09:52:00 Test Item Value Reference Range Comments POC-GLUCOSE METER (BEAKER) 138 mg/dL 70-110 TESTED AT [facility] [address] [facility] [facility] (test jexf=3198) [facility] [address] HEMOGLOBIN AND [id number] 08:27:00 Test Item Value Reference Range Comments HEMOGLOBIN (BEAKER) (test bjpv=209) 8.8 GM/DL 13.7-17.5 HEMATOCRIT (BEAKER) (test cuvz=149) 26.2 % 40.1-51.0 RAD, CHEST, 1 VIEW, NON [id number] 08:22:00Reason for exam:->pl effusionShould this be performed at the bedside?->YesFINAL REPORT INDICATION: pl effusion COMPARISON: July 30, 2017 TECHNIQUE: Chest radiograph, single view, portable technique. FINDINGS / IMPRESSION: Pulmonary venous congestion and edema has slightly improved. Right midlung linear opacities and left retrocardiac opacity likely represent residual edema or subsegmental atelectasis. Mild enlargement of the cardiac silhouette is unchanged. Left chest tube, mediastinal tube, right internal jugular line, left internal jugular line, and median sternotomy wires are again demonstrated. There is no pneumothorax. Signed: Enrike Miner MDReport Verified Date/Time: 07/31/2017 08:22:41 Reading Location: [facility] Diagnostic Imaging Reading Room - [place] [id number] Electronically signed by: ENRIKE MINER M.D. on 2016 08:22AMPOCT-GLUCOSE [id number] 08:03:00 Test Item Value Reference Range Comments POC-GLUCOSE METER (BEAKER) 104 mg/dL 70-110 TESTED AT [address] (test jlbu=9781) [facility] [address] POCT-GLUCOSE [id number] 07:20:00 Test Item Value Reference Range Comments POC-GLUCOSE METER (BEAKER) 106 mg/dL 70-110 TESTED AT [address] (test outa=6285) [facility] [address] POCT-GLUCOSE [id number] 07:20:00 Test Item Value Reference Range Comments POC-GLUCOSE METER (BEAKER) 100 mg/dL 70-110 TESTED AT [address] (test simz=4578) [facility] [address] POCT-GLUCOSE [id number] 07:20:00 Test Item Value Reference Range Comments POC-GLUCOSE METER (BEAKER) 111 mg/dL 70-110 TESTED AT [address] (test gdpf=9977) [facility] [address] POCT-GLUCOSE [id number] 04:40:00 Test Item Value Reference Range Comments POC-GLUCOSE METER (BEAKER) 169 mg/dL 70-110 TESTED AT [address] (test zgen=0614) [facility] [address] POCT-GLUCOSE [id number] 04:40:00 Test Item Value Reference Range Comments POC-GLUCOSE METER (BEAKER) 180 mg/dL 70-110 TESTED AT [facility] [address] (test zxhy=7843) [place] [address] CBC W/PLT COUNT & AUTO [id number] 04:07:00 Test Item Value Reference Range Comments WHITE BLOOD CELL COUNT (BEAKER) (test exji=617) 12.1 K/ L 3.5-10.5 RED BLOOD CELL COUNT (BEAKER) (test oxar=577) 3.03 M/ L 4.63-6.08 HEMOGLOBIN (BEAKER) (test okyj=907) 9.2 GM/DL 13.7-17.5 HEMATOCRIT (BEAKER) (test shzy=442) 27.5 % 40.1-51.0 MEAN CORPUSCULAR VOLUME (BEAKER) (test fudb=075) 90.8 fL 79.0-92.2 MEAN CORPUSCULAR HEMOGLOBIN (BEAKER) (test 30.4 pg 25.7-32.2 ehff=282) MEAN CORPUSCULAR HEMOGLOBIN CONC (BEAKER) (test 33.5 GM/DL 32.3-36.5 lwor=879) RED CELL DISTRIBUTION WIDTH (BEAKER) (test 12.6 % 11.6-14.4 bpdr=619) PLATELET COUNT (BEAKER) (test fwvp=786) 157 K/CU MM 150-450 MEAN PLATELET VOLUME (BEAKER) (test hsts=009) 12.0 fL 9.4-12.4 NUCLEATED RED BLOOD CELLS (BEAKER) (test 0 /100 WBC 0-0 xnls=713) NEUTROPHILS RELATIVE PERCENT (BEAKER) (test 84 % jpfp=826) LYMPHOCYTES RELATIVE PERCENT (BEAKER) (test 6 % bqgj=147) MONOCYTES RELATIVE PERCENT (BEAKER) (test 10 % ngai=419) EOSINOPHILS RELATIVE PERCENT (BEAKER) (test 0 % midd=597) BASOPHILS RELATIVE PERCENT (BEAKER) (test 0 % zvrq=855) NEUTROPHILS ABSOLUTE COUNT (BEAKER) (test 10.17 K/ L 1.78-5.38 fbcb=030) LYMPHOCYTES ABSOLUTE COUNT (BEAKER) (test 0.66 K/ L 1.32-3.57 umil=069) MONOCYTES ABSOLUTE COUNT (BEAKER) (test 1.20 K/ L 0.30-0.82 lkkj=151) EOSINOPHILS ABSOLUTE COUNT (BEAKER) (test 0.00 K/ L 0.04-0.54 ftld=226) BASOPHILS ABSOLUTE COUNT (BEAKER) (test 0.01 K/ L 0.01-0.08 lqgz=488) IMMATURE GRANULOCYTES-RELATIVE PERCENT (BEAKER) 1 % 0-1 (test ruhp=3876) [id number] 03:47:00 Test Item Value Reference Range Comments MAGNESIUM (BEAKER) (test rtmh=108) 2.5 mg/dL 1.6-2.6 BASIC METABOLIC [id number] 03:47:00 Test Item Value Reference Range Comments SODIUM (BEAKER) (test 139 meq/L 136-145 egvh=792) POTASSIUM (BEAKER) (test 4.6 meq/L 3.5-5.1 pozf=054) CHLORIDE (BEAKER) (test 108 meq/L 98-107 yyiw=207) CO2 (BEAKER) (test 24 meq/L 22-29 uuyz=970) BLOOD UREA NITROGEN 26 mg/dL 7-21 (BEAKER) (test nagv=957) CREATININE (BEAKER) (test 1.15 mg/dL 0.57-1.25 ttqb=694) GLUCOSE RANDOM (BEAKER) 119 mg/dL 70-105 (test dqjp=924) CALCIUM (BEAKER) (test 8.9 mg/dL 8.4-10.2 jfvt=673) EGFR (BEAKER) (test 65 mL/min/1.73 sq m ESTIMATED GFR IS NOT ffeu=3309) ACCURATE CREATININE CLEARANCE IN PREDICTING GLOMERULAR FILTRATION RATE. ESTIMATED GFR IS NOT APPLICABLE FOR DIALYSIS PATIENTS. LACTIC ACID, ARTERIAL, WHOLE [id number] 03:44:00 Test Item Value Reference Range Comments LACTATE BLOOD ARTERIAL (2) (BEAKER) (test 1.5 mmol/L 0.5-2.2 seal=8019) Effective 03/21/2016: Units/Reference Range ChangeNew: 0.5-2.2 mmol/L Previous: 5 -20 mg/dLCALCIUM, [id number] 03:19:00 Test Item Value Reference Range Comments CALCIUM IONIZED (BEAKER) (test xbhi=898) 1.14 mmol/L 1.12-1.27 PH, BLOOD (BEAKER) (test iswi=9897) 7.36 OXYGEN SATURATION, [id number] 03:19:00 Test Item Value Reference Range Comments O2 SATURATION (MEASURED) (BEAKER) (test hism=9799) 66.3 % POCT-GLUCOSE [id number] 01:29:00 Test Item Value Reference Range Comments POC-GLUCOSE METER (BEAKER) 145 mg/dL 70-110 TESTED AT [address] (test vwff=5864) [place] [address] POCT-GLUCOSE [id number] 01:29:00 Test Item Value Reference Range Comments POC-GLUCOSE METER (BEAKER) 152 mg/dL 70-110 TESTED AT [address] (test xbbx=5570) [place] [address] HEMOGLOBIN AND [id number] 00:12:00 Test Item Value Reference Range Comments HEMOGLOBIN (BEAKER) (test llfy=827) 9.4 GM/DL 13.7-17.5 HEMATOCRIT (BEAKER) (test pqmn=223) 27.2 % 40.1-51.0 POCT-GLUCOSE [id number] 23:59:00 Test Item Value Reference Range Comments POC-GLUCOSE METER (BEAKER) 178 mg/dL 70-110 TESTED AT [address] (test azou=4246) [place] [address] [id number] 21:41:00 Test Item Value Reference Range Comments POTASSIUM (BEAKER) (test nplp=663) 4.7 meq/L 3.5-5.1 Check Serum Potassium level 2 hours after oral potassium replacement completed or 30 min after intravenous potassium replacement.[id number] 21:41:00 Test Item Value Reference Range Comments MAGNESIUM (BEAKER) (test nxsg=464) 2.1 mg/dL 1.6-2.6 Check Serum Potassium level 2 hours after oral potassium replacement completed or 30 min after intravenous potassium replacement.POCT-GLUCOSE [id number] 21:00:00 Test Item Value Reference Range Comments POC-GLUCOSE METER (BEAKER) 187 mg/dL 70-110 TESTED AT [address] (test miei=2176) [place] [address] POCT-GLUCOSE [id number] 21:00:00 Test Item Value Reference Range Comments POC-GLUCOSE METER (BEAKER) 178 mg/dL 70-110 TESTED AT [address] (test nmfl=8953) [facility] [address] POCT-GLUCOSE [id number] 18:42:00 Test Item Value Reference Range Comments POC-GLUCOSE METER (BEAKER) 221 mg/dL 70-110 TESTED AT [address] (test tuxm=5822) [facility] [address] POCT-GLUCOSE [id number] 18:41:00 Test Item Value Reference Range Comments POC-GLUCOSE METER (BEAKER) 244 mg/dL 70-110 TESTED AT [address] (test jhmx=8749) [facility] [address] POCT-GLUCOSE [id number] 18:41:00 Test Item Value Reference Range Comments POC-GLUCOSE METER (BEAKER) 269 mg/dL 70-110 TESTED AT [address] (test dpdd=4103) [facility] [address] POCT-GLUCOSE [id number] 18:41:00 Test Item Value Reference Range Comments POC-GLUCOSE METER (BEAKER) 306 mg/dL 70-110 TESTED AT [address] (test wmwi=9454) [facility] [address] POTASSIUM-STAT [id number] 18:32:00 Test Item Value Reference Range Comments POTASSIUM (BEAKER) (test disf=179) 3.9 meq/L 3.6-5.5 BLOOD GAS, [id number] 18:32:00 Test Item Value Reference Range Comments PH ARTERIAL (BEAKER) (test myrf=919) 7.37 7.35-7.45 PCO2 ARTERIAL (BEAKER) (test gukm=552) 43 mmHg 35-45 PO2 ARTERIAL (BEAKER) (test lexw=366) 95 mmHg 80-90 O2 SATURATION ARTERIAL (BEAKER) (test umyf=882) 96.8 % 96.0-97.0 HCO3 ARTERIAL (BEAKER) (test wbdl=873) 24 mmol/L 21-29 BASE EXCESS ARTERIAL (BEAKER) (test arav=003) -1.0 mmol/L -2.0-3.0 PATIENT TEMPERATURE (BEAKER) (test nnva=9744) 37.6 C FIO2 (BEAKER) (test ujdt=5903) 60.0 % SODIUM NA-STAT [id number] 18:32:00 Test Item Value Reference Range Comments SODIUM (BEAKER) (test ejpi=163) 134 meq/L 135-148 GLUCOSE-STAT [id number] 18:32:00 Test Item Value Reference Range Comments GLUCOSE RANDOM (BEAKER) (test nfwh=684) 190 mg/dL 70-110 HGB/HCT (H&H) - STAT [id number] 18:32:00 Test Item Value Reference Range Comments HEMOGLOBIN (BEAKER) (test tcxk=306) 10.5 g/dL 13.0-16.8 HEMATOCRIT (BEAKER) (test nker=962) 31.0 % 40.0-50.0 CALCIUM, [id number] 18:32:00 Test Item Value Reference Range Comments CALCIUM IONIZED (BEAKER) (test qjwg=655) 1.16 mmol/L 1.12-1.27 PH, BLOOD (BEAKER) (test edem=3980) 7.38 [id number] 16:39:00 Test Item Value Reference Range Comments MAGNESIUM (BEAKER) (test xorj=157) 1.9 mg/dL 1.6-2.6 GLUCOSE-STAT [id number] 16:24:00 Test Item Value Reference Range Comments GLUCOSE RANDOM (BEAKER) (test wjyf=273) 252 mg/dL 70-110 BLOOD GAS, [id number] 16:24:00 Test Item Value Reference Range Comments PH ARTERIAL (BEAKER) (test ilmc=132) 7.36 7.35-7.45 PCO2 ARTERIAL (BEAKER) (test uqsu=272) 42 mmHg 35-45 PO2 ARTERIAL (BEAKER) (test fjiz=300) 91 mmHg 80-90 O2 SATURATION ARTERIAL (BEAKER) (test jgaa=248) 95.7 % 96.0-97.0 HCO3 ARTERIAL (BEAKER) (test sxta=375) 23 mmol/L 21-29 BASE EXCESS ARTERIAL (BEAKER) (test ckih=200) -1.9 mmol/L -2.0-3.0 PATIENT TEMPERATURE (BEAKER) (test dprl=4229) 39.1 C FIO2 (BEAKER) (test cnow=8828) 40.0 % CALCIUM, [id number] 16:24:00 Test Item Value Reference Range Comments CALCIUM IONIZED (BEAKER) (test pfin=879) 1.06 mmol/L 1.12-1.27 PH, BLOOD (BEAKER) (test fgvy=0414) 7.39 POTASSIUM-STAT [id number] 16:22:00 Test Item Value Reference Range Comments POTASSIUM (BEAKER) (test oyuu=505) 3.6 meq/L 3.6-5.5 RAD, CHEST, 1 VIEW, NON [id number] 14:41:00Reason for exam:->post opShould this be performed at the bedside?->YesFINAL REPORT TECHNIQUE: Frontal chest radiograph dated 07/30/2017. CLINICAL HISTORY : Postop. COMPARISON STUDY: Chest radiograph dated 07/29/2017 IMPRESSION: Endotracheal tube is 6.5 cm above the alfonso. Right internal jugular catheter terminates in the region of the superior vena cava/right atrial junction. Left- sided internal jugular venous catheter tip projects over the right atrium. Enteric tube tip terminates in the region of the gastric body. Left chest tube and mediastinaldrain are in place. Airspace disease in increased interstitial lung markings are grossly unchanged. No pleural effusion or pneumothorax. Cardiomediastinal silhouette is normal in size. Midline sternotomy wires are intact and well aligned. No fracture. Signed: Annie Rubalcavaeport Verified Date/Time: 07/30/2017 14:41:41 Reading Location: [facility] Radiology Reading Room CBC (HEMOGRAM ONLY)2017-07-30 13:32:00 Test Item Value Reference Range Comments WHITE BLOOD CELL COUNT (BEAKER) (test wzee=791) 13.6 K/ L 3.5-10.5 RED BLOOD CELL COUNT (BEAKER) (test bgco=816) 3.55 M/ L 4.63-6.08 HEMOGLOBIN (BEAKER) (test ltvf=763) 10.9 GM/DL 13.7-17.5 HEMATOCRIT (BEAKER) (test gbfp=974) 30.8 % 40.1-51.0 MEAN CORPUSCULAR VOLUME (BEAKER) (test dznj=552) 86.8 fL 79.0-92.2 MEAN CORPUSCULAR HEMOGLOBIN (BEAKER) (test 30.7 pg 25.7-32.2 hrbd=063) MEAN CORPUSCULAR HEMOGLOBIN CONC (BEAKER) (test 35.4 GM/DL 32.3-36.5 kmzc=727) RED CELL DISTRIBUTION WIDTH (BEAKER) (test 12.1 % 11.6-14.4 wldu=473) PLATELET COUNT (BEAKER) (test jxmn=037) 131 K/CU MM 150-450 MEAN PLATELET VOLUME (BEAKER) (test dhag=187) 11.8 fL 9.4-12.4 NUCLEATED RED BLOOD CELLS (BEAKER) (test 0 /100 WBC 0-0 wruc=532) [id number] 13:04:00 Test Item Value Reference Range Comments MAGNESIUM (BEAKER) (test 2.1 mg/dL 1.6-2.6 Specimen slightly hemolyzed xkmq=500) [id number] 13:04:00 Test Item Value Reference Range Comments PHOSPHORUS (BEAKER) (test 2.5 mg/dL 2.3-4.7 Specimen slightly hemolyzed xuck=526) BASIC METABOLIC [id number] 13:03:00 Test Item Value Reference Range Comments SODIUM (BEAKER) (test 135 meq/L 136-145 valt=609) POTASSIUM (BEAKER) (test 4.6 meq/L 3.5-5.1 Specimen slightly bzlb=389) hemolyzed CHLORIDE (BEAKER) (test 104 meq/L 98-107 midd=737) CO2 (BEAKER) (test 24 meq/L 22-29 vkih=685) BLOOD UREA NITROGEN 25 mg/dL 7-21 (BEAKER) (test orfg=916) CREATININE (BEAKER) (test 0.96 mg/dL 0.57-1.25 Specimen slightly gfsg=666) hemolyzed GLUCOSE RANDOM (BEAKER) 258 mg/dL 70-105 (test kkkl=683) CALCIUM (BEAKER) (test 8.3 mg/dL 8.4-10.2 tvnc=452) EGFR (BEAKER) (test 80 mL/min/1.73 sq m ESTIMATED GFR IS NOT hlbe=0635) ACCURATE CREATININE CLEARANCE IN PREDICTING GLOMERULAR FILTRATION RATE. ESTIMATED GFR IS NOT APPLICABLE FOR DIALYSIS PATIENTS. LACTIC ACID, ARTERIAL, WHOLE [id number] 12:57:00 Test Item Value Reference Range Comments LACTATE BLOOD ARTERIAL (2) 1.8 mmol/L 0.5-2.2 Specimen slightly hemolyzed (BEAKER) (test zmhf=4435) Effective 03/21/2016: Units/Reference Range ChangeNew: 0.5-2.2 mmol/L Previous: 5 -20 mg/dLCALCIUM, [id number] 12:44:00 Test Item Value Reference Range Comments CALCIUM IONIZED (BEAKER) (test muwx=315) 1.12 mmol/L 1.12-1.27 PH, BLOOD (BEAKER) (test xpuf=2977) 7.45 GLUCOSE-STAT [id number] 12:44:00 Test Item Value Reference Range Comments GLUCOSE RANDOM (BEAKER) (test yuxk=191) 253 mg/dL 70-110 HGB/HCT (H&H) - STAT [id number] 12:44:00 Test Item Value Reference Range Comments HEMOGLOBIN (BEAKER) (test mttp=336) 11.9 g/dL 13.0-16.8 HEMATOCRIT (BEAKER) (test iqna=585) 35.0 % 40.0-50.0 SODIUM NA-STAT [id number] 12:44:00 Test Item Value Reference Range Comments SODIUM (BEAKER) (test ngbt=654) 131 meq/L 135-148 POTASSIUM-STAT [id number] 12:44:00 Test Item Value Reference Range Comments POTASSIUM (BEAKER) (test djgb=114) 4.4 meq/L 3.6-5.5 BLOOD GAS, [id number] 12:44:00 Test Item Value Reference Range Comments PH ARTERIAL (BEAKER) (test rxxw=382) 7.45 7.35-7.45 PCO2 ARTERIAL (BEAKER) (test qknn=297) 36 mmHg 35-45 PO2 ARTERIAL (BEAKER) (test hwgz=438) 109 mmHg 80-90 O2 SATURATION ARTERIAL (BEAKER) (test hpdc=114) 98.3 % 96.0-97.0 HCO3 ARTERIAL (BEAKER) (test zlhm=632) 25 mmol/L 21-29 BASE EXCESS ARTERIAL (BEAKER) (test tqcc=043) 0.8 mmol/L -2.0-3.0 PATIENT TEMPERATURE (BEAKER) (test hlyp=7022) 36.5 C FIO2 (BEAKER) (test izht=1575) 60.0 % OXYGEN SATURATION, [id number] 12:44:00 Test Item Value Reference Range Comments O2 SATURATION (MEASURED) (BEAKER) (test klkd=9692) 55.1 % [id number] 12:11:00 Test Item Value Reference Range Comments ACTIVATED CLOTTING TIME 555 sec TESTED AT [place] [id number] [facility] (BEAKER) (test hcmn=305) [place] [address] [id number] 12:11:00 Test Item Value Reference Range Comments ACTIVATED CLOTTING TIME 466 sec TESTED AT [place] [address] [facility] (BEAKER) (test sphm=057) [place] [address] [id number] 12:11:00 Test Item Value Reference Range Comments ACTIVATED CLOTTING TIME 549 sec TESTED AT [address] (BEAKER) (test bbjh=376) [place] [address] [id number] 12:11:00 Test Item Value Reference Range Comments ACTIVATED CLOTTING TIME 428 sec TESTED AT [address] (BEAKER) (test yhjd=733) [place] [address] [id number] 12:11:00 Test Item Value Reference Range Comments ACTIVATED CLOTTING TIME 423 sec TESTED AT [address] (BEAKER) (test oxyr=526) [place] [address] THROMBOELASTOGRAPH (TEG)2017-07-30 11:42:00 Test Item Value Reference Range Comments TEG ACTIVATED CLOTTING TIME (BEAKER) (test 16.2 minutes 4.0-7.0 wnqk=3394) TEG FIBRINOGEN ACTIVITY (BEAKER) (test 48.3 degrees 61.0-73.0 scbz=5241) TEG PLT. AGGREGATION (BEAKER) (test djbi=7742) 71.4 MM 55.0-65.0 TGH ACTIVATED CLOTTING TIME (BEAKER) (test 16.4 minutes 4.0-7.0 hjmw=1456) TGH FIBRINOGEN ACTIVITY (BEAKER) (test 48.1 degrees 61.0-73.0 ohdv=7675) TGH PLT. AGGREGATION (BEAKER) (test cmsj=2278) 68.8 MM 55.0-65.0 PLATELET [id number] 11:13:00 Test Item Value Reference Range Comments PLATELET COUNT (BEAKER) (test phir=553) 66 K/CU MM 150-450 OR patient PROTHROMBIN [id number] 10:58:00 Test Item Value Reference Range Comments PROTIME (BEAKER) (test ahwa=937) 22.1 seconds 11.7-14.7 INR (BEAKER) (test covg=389) 1.9 <=5.9 RECOMMENDED COUMADIN/WARFARIN INR THERAPY RANGESSTANDARD DOSE: 2.0 - 3.0 Includes: PROPHYLAXIS forvenous thrombosis, systemic embolization; TREATMENT for venous thrombosis and/or pulmonary embolus.HIGH RISK: Target INR is 2.5-3.5 for patients with mechanical heart valves.[id number] 10:58:00 Test Item Value Reference Range Comments FIBRINOGEN LEVEL (BEAKER) (test wjvt=311) 542 mg/dl 225-434 [id number] 10:58:00 Test Item Value Reference Range Comments PARTIAL THROMBOPLASTIN TIME (BEAKER) (test 35.4 seconds 22.5-36.0 lkgh=567) CALCIUM, [id number] 10:45:00 Test Item Value Reference Range Comments CALCIUM IONIZED (BEAKER) (test vzrd=793) 1.12 mmol/L 1.12-1.27 PH, BLOOD (BEAKER) (test qsyq=0595) 7.44 BLOOD GAS, [id number] 10:45:00 Test Item Value Reference Range Comments PH ARTERIAL (BEAKER) (test tsqt=853) 7.45 7.35-7.45 PCO2 ARTERIAL (BEAKER) (test guxk=297) 37 mmHg 35-45 PO2 ARTERIAL (BEAKER) (test bvjl=736) 64 mmHg 80-90 O2 SATURATION ARTERIAL (BEAKER) (test kknl=383) 94.5 % 96.0-97.0 HCO3 ARTERIAL (BEAKER) (test pndt=196) 25 mmol/L 21-29 BASE EXCESS ARTERIAL (BEAKER) (test nrsx=640) 1.0 mmol/L -2.0-3.0 PATIENT TEMPERATURE (BEAKER) (test urdm=6547) 35.9 C FIO2 (BEAKER) (test lsdu=2637) 92.0 % SODIUM NA-STAT [id number] 10:45:00 Test Item Value Reference Range Comments SODIUM (BEAKER) (test mvgh=978) 128 meq/L 135-148 GLUCOSE-STAT [id number] 10:45:00 Test Item Value Reference Range Comments GLUCOSE RANDOM (BEAKER) (test gfqr=669) 260 mg/dL 70-110 HGB/HCT (H&H) - STAT [id number] 10:45:00 Test Item Value Reference Range Comments HEMOGLOBIN (BEAKER) (test iygg=173) 10.3 g/dL 13.0-16.8 HEMATOCRIT (BEAKER) (test fhmg=790) 30.0 % 40.0-50.0 POTASSIUM-STAT [id number] 10:44:00 Test Item Value Reference Range Comments POTASSIUM (BEAKER) (test pfmg=042) 5.1 meq/L 3.6-5.5 POTASSIUM-STAT [id number] 10:03:00 Test Item Value Reference Range Comments POTASSIUM (BEAKER) (test miih=926) 5.4 meq/L 3.6-5.5 BLOOD GAS, [id number] 10:03:00 Test Item Value Reference Range Comments PH ARTERIAL (BEAKER) (test tshd=487) 7.45 7.35-7.45 PCO2 ARTERIAL (BEAKER) (test rwqv=113) 39 mmHg 35-45 PO2 ARTERIAL (BEAKER) (test opyh=266) 291 mmHg 80-90 O2 SATURATION ARTERIAL (BEAKER) (test oqbr=950) 99.7 % 96.0-97.0 HCO3 ARTERIAL (BEAKER) (test didz=879) 27 mmol/L 21-29 BASE EXCESS ARTERIAL (BEAKER) (test sibo=941) 2.4 mmol/L -2.0-3.0 PATIENT TEMPERATURE (BEAKER) (test edmh=1264) 36.4 C FIO2 (BEAKER) (test gmsw=7505) 75.0 % SODIUM NA-STAT [id number] 10:03:00 Test Item Value Reference Range Comments SODIUM (BEAKER) (test btbr=921) 127 meq/L 135-148 GLUCOSE-STAT [id number] 10:03:00 Test Item Value Reference Range Comments GLUCOSE RANDOM (BEAKER) (test lmbe=526) 263 mg/dL 70-110 HGB/HCT (H&H) - STAT [id number] 10:03:00 Test Item Value Reference Range Comments HEMOGLOBIN (BEAKER) (test lsmw=373) 9.6 g/dL 13.0-16.8 HEMATOCRIT (BEAKER) (test eexx=626) 28.0 % 40.0-50.0 BLOOD GAS, [id number] 09:38:00 Test Item Value Reference Range Comments PH ARTERIAL (BEAKER) (test ktmy=638) 7.49 7.35-7.45 PCO2 ARTERIAL (BEAKER) (test yuam=498) 34 mmHg 35-45 PO2 ARTERIAL (BEAKER) (test zvpb=087) 235 mmHg 80-90 O2 SATURATION ARTERIAL (BEAKER) (test gbqt=638) 99.6 % 96.0-97.0 HCO3 ARTERIAL (BEAKER) (test wnby=173) 27 mmol/L 21-29 BASE EXCESS ARTERIAL (BEAKER) (test mhaz=236) 1.7 mmol/L -2.0-3.0 PATIENT TEMPERATURE (BEAKER) (test ydwl=1643) 30.0 C FIO2 (BEAKER) (test aijh=6500) 60.0 % SODIUM NA-STAT [id number] 09:38:00 Test Item Value Reference Range Comments SODIUM (BEAKER) (test cjji=220) 127 meq/L 135-148 GLUCOSE-STAT [id number] 09:38:00 Test Item Value Reference Range Comments GLUCOSE RANDOM (BEAKER) (test vrri=244) 256 mg/dL 70-110 HGB/HCT (H&H) - STAT [id number] 09:38:00 Test Item Value Reference Range Comments HEMOGLOBIN (BEAKER) (test fpeh=760) 9.4 g/dL 13.0-16.8 HEMATOCRIT (BEAKER) (test zwcz=180) 28.0 % 40.0-50.0 POTASSIUM-STAT [id number] 09:37:00 Test Item Value Reference Range Comments POTASSIUM (BEAKER) (test biez=835) 4.8 meq/L 3.6-5.5 POTASSIUM-STAT [id number] 09:08:00 Test Item Value Reference Range Comments POTASSIUM (BEAKER) (test myzd=667) 3.7 meq/L 3.6-5.5 BLOOD GAS, [id number] 09:08:00 Test Item Value Reference Range Comments PH ARTERIAL (BEAKER) (test pzos=734) 7.37 7.35-7.45 PCO2 ARTERIAL (BEAKER) (test ykcw=268) 42 mmHg 35-45 PO2 ARTERIAL (BEAKER) (test jxsd=986) 294 mmHg 80-90 O2 SATURATION ARTERIAL (BEAKER) (test oyxk=873) 99.7 % 96.0-97.0 HCO3 ARTERIAL (BEAKER) (test eknp=025) 25 mmol/L 21-29 BASE EXCESS ARTERIAL (BEAKER) (test rfji=954) -1.5 mmol/L -2.0-3.0 PATIENT TEMPERATURE (BEAKER) (test obrd=3307) 32.5 C FIO2 (BEAKER) (test wisk=9173) 60.0 % SODIUM NA-STAT [id number] 09:08:00 Test Item Value Reference Range Comments SODIUM (BEAKER) (test jdep=369) 125 meq/L 135-148 GLUCOSE-STAT [id number] 09:08:00 Test Item Value Reference Range Comments GLUCOSE RANDOM (BEAKER) (test ocmg=275) 197 mg/dL 70-110 HGB/HCT (H&H) - STAT [id number] 09:08:00 Test Item Value Reference Range Comments HEMOGLOBIN (BEAKER) (test ozfs=539) 8.7 g/dL 13.0-16.8 HEMATOCRIT (BEAKER) (test trmj=332) 26.0 % 40.0-50.0 CALCIUM, [id number] 08:12:00 Test Item Value Reference Range Comments CALCIUM IONIZED (BEAKER) (test iyrl=782) 1.06 mmol/L 1.12-1.27 PH, BLOOD (BEAKER) (test otnx=9619) 7.45 BLOOD GAS, [id number] 08:12:00 Test Item Value Reference Range Comments PH ARTERIAL (BEAKER) (test zwyl=143) 7.45 7.35-7.45 PCO2 ARTERIAL (BEAKER) (test uhrj=148) 41 mmHg 35-45 PO2 ARTERIAL (BEAKER) (test oxci=055) 196 mmHg 80-90 O2 SATURATION ARTERIAL (BEAKER) (test nkoz=453) 99.4 % 96.0-97.0 HCO3 ARTERIAL (BEAKER) (test cizl=925) 27 mmol/L 21-29 BASE EXCESS ARTERIAL (BEAKER) (test enpy=973) 3.3 mmol/L -2.0-3.0 PATIENT TEMPERATURE (BEAKER) (test homf=8163) 37.4 C FIO2 (BEAKER) (test mrqe=4331) 100.0 % SODIUM NA-STAT [id number] 08:12:00 Test Item Value Reference Range Comments SODIUM (BEAKER) (test ersl=123) 132 meq/L 135-148 GLUCOSE-STAT [id number] 08:12:00 Test Item Value Reference Range Comments GLUCOSE RANDOM (BEAKER) (test bybr=236) 243 mg/dL 70-110 HGB/HCT (H&H) - STAT [id number] 08:12:00 Test Item Value Reference Range Comments HEMOGLOBIN (BEAKER) (test otoj=700) 13.4 g/dL 13.0-16.8 HEMATOCRIT (BEAKER) (test txnf=070) 39.0 % 40.0-50.0 POTASSIUM-STAT [id number] 08:09:00 Test Item Value Reference Range Comments POTASSIUM (BEAKER) (test twwz=878) 4.0 meq/L 3.6-5.5 [id number] 04:50:00 Test Item Value Reference Range Comments MAGNESIUM (BEAKER) (test raiw=341) 2.1 mg/dL 1.6-2.6 BASIC METABOLIC [id number] 04:50:00 Test Item Value Reference Range Comments SODIUM (BEAKER) (test 135 meq/L 136-145 ljvn=410) POTASSIUM (BEAKER) (test 4.2 meq/L 3.5-5.1 zwrp=319) CHLORIDE (BEAKER) (test 98 meq/L 98-107 brwx=893) CO2 (BEAKER) (test 29 meq/L 22-29 ojyu=010) BLOOD UREA NITROGEN 27 mg/dL 7-21 (BEAKER) (test wlzs=565) CREATININE (BEAKER) (test 1.18 mg/dL 0.57-1.25 ztld=466) GLUCOSE RANDOM (BEAKER) 289 mg/dL 70-105 (test delk=884) CALCIUM (BEAKER) (test 8.8 mg/dL 8.4-10.2 amgp=320) EGFR (BEAKER) (test 63 mL/min/1.73 sq m ESTIMATED GFR IS NOT mbak=7845) ACCURATE CREATININE CLEARANCE IN PREDICTING GLOMERULAR FILTRATION RATE. ESTIMATED GFR IS NOT APPLICABLE FOR DIALYSIS PATIENTS. [id number] 04:49:00 Test Item Value Reference Range Comments PARTIAL THROMBOPLASTIN TIME (BEAKER) (test 56.8 seconds 22.5-36.0 eraq=332) CBC W/PLT COUNT & AUTO [id number] 04:48:00 Test Item Value Reference Range Comments WHITE BLOOD CELL COUNT (BEAKER) (test kgtt=158) 10.3 K/ L 3.5-10.5 RED BLOOD CELL COUNT (BEAKER) (test ituf=979) 4.06 M/ L 4.63-6.08 HEMOGLOBIN (BEAKER) (test lhjn=079) 12.2 GM/DL 13.7-17.5 HEMATOCRIT (BEAKER) (test bqtr=966) 35.5 % 40.1-51.0 MEAN CORPUSCULAR VOLUME (BEAKER) (test bxmx=996) 87.4 fL 79.0-92.2 MEAN CORPUSCULAR HEMOGLOBIN (BEAKER) (test 30.0 pg 25.7-32.2 lhsy=269) MEAN CORPUSCULAR HEMOGLOBIN CONC (BEAKER) (test 34.4 GM/DL 32.3-36.5 pdqh=645) RED CELL DISTRIBUTION WIDTH (BEAKER) (test 12.4 % 11.6-14.4 abah=177) PLATELET COUNT (BEAKER) (test etdv=688) 127 K/CU MM 150-450 MEAN PLATELET VOLUME (BEAKER) (test sgok=431) 11.5 fL 9.4-12.4 NUCLEATED RED BLOOD CELLS (BEAKER) (test 0 /100 WBC 0-0 cumb=991) NEUTROPHILS RELATIVE PERCENT (BEAKER) (test 80 % nnbb=524) LYMPHOCYTES RELATIVE PERCENT (BEAKER) (test 12 % rujz=864) MONOCYTES RELATIVE PERCENT (BEAKER) (test 7 % iytn=935) EOSINOPHILS RELATIVE PERCENT (BEAKER) (test 0 % kpoy=478) BASOPHILS RELATIVE PERCENT (BEAKER) (test 0 % iyei=946) NEUTROPHILS ABSOLUTE COUNT (BEAKER) (test 8.23 K/ L 1.78-5.38 armj=342) LYMPHOCYTES ABSOLUTE COUNT (BEAKER) (test 1.25 K/ L 1.32-3.57 moij=782) MONOCYTES ABSOLUTE COUNT (BEAKER) (test 0.74 K/ L 0.30-0.82 iicz=536) EOSINOPHILS ABSOLUTE COUNT (BEAKER) (test 0.01 K/ L 0.04-0.54 drob=535) BASOPHILS ABSOLUTE COUNT (BEAKER) (test 0.02 K/ L 0.01-0.08 zsbb=459) IMMATURE GRANULOCYTES-RELATIVE PERCENT (BEAKER) 0 % 0-1 (test typb=4569) POCT-GLUCOSE [id number] 23:20:00 Test Item Value Reference Range Comments POC-GLUCOSE METER (BEAKER) 262 mg/dL 70-110 TESTED AT [facility] [address] [facility] (test kumx=1394) [facility] [address] RAD, CHEST, 1 VIEW, NON [id number] 22:50:00Reason for exam:->Verfiy central line Should this be performed at the bedside?->YesFINAL REPORT RAD, CHEST, 1 VIEW, NON DEPT INDICATION: Verfiy central line COMPARISON: Chest radiographs dating back to yesterday TECHNIQUE: Single frontal view of the chest. IMPRESSION:Stable positioning of an IABP.New left IJ line which terminates in the right atrium, 4.3 cm away from the atriocaval junction.Worsening patchy airspace opacities in the lungs, left greater than right.Stable cardiomediastinal silhouette.No acute osseous abnormality. Signed: Alice Moore MDReport Verified Date/Time: 07/29/2017 22:50:59 Reading Location: [facility] B1 [id number] Ortho Consult Reading Room TROPONIN [id number] 21:46:00 Test Item Value Reference Range Comments TROPONIN I (BEAKER) (test mooe=099) 27.18 ng/mL 0.00-0.03 Troponin I (TnI) levels must be interpreted [...] failure, acidosis, acute neurological disease, and persistent tachyarrhythmia.HEMOGLOBIN [id number] 21:42:00 Test Item Value Reference Range Comments HEMOGLOBIN A1C (BEAKER) (test xfjb=275) 12.0 % 4.3-6.1 POCT-GLUCOSE [id number] 21:01:00 Test Item Value Reference Range Comments POC-GLUCOSE METER (BEAKER) 249 mg/dL 70-110 TESTED AT [address] (test rawl=8546) [place] [address] POCT-GLUCOSE [id number] 17:57:00 Test Item Value Reference Range Comments POC-GLUCOSE METER (BEAKER) 268 mg/dL 70-110 TESTED AT [address] (test vhck=2632) [place] [id number] PLATELET AGGREGATION: FUNCTION [id number] 17:11:00 Test Item Value Reference Range Comments WEAK ADP RESULT(BEAKER) (test 100 % 60-91 hkwm=6929) PLATELET FUNCTION SCREEN 60-100% indicates normal INTERP (BEAKER) (test platelet function rnkp=7863) [id number] (BEAKER) Demar Arteaga MD (electronic (test gktt=9767) signature) PLATELET COUNT AGG (BEAKER) 149 K/CU MM 150-450 (test vfld=0718) TROPONIN [id number] 14:50:00 Test Item Value Reference Range Comments TROPONIN I (BEAKER) (test agia=101) 32.64 ng/mL 0.00-0.03 Troponin I (TnI) levels must be interpreted [...] failure, acidosis, acute neurological disease, and persistent tachyarrhythmia.TSH/FREE T4 IF [id number] 14:34 :00 Test Item Value Reference Range Comments THYROID STIMULATING HORMONE (BEAKER) (test 0.62 uIU/mL 0.35-4.94 ekwr=255) [id number] 14:02:00 Test Item Value Reference Range Comments POTASSIUM (BEAKER) (test qrgl=686) 3.8 meq/L 3.5-5.1 [id number] 12:50:00 Test Item Value Reference Range Comments PARTIAL THROMBOPLASTIN TIME (BEAKER) (test 53.8 seconds 22.5-36.0 oker=600) POCT-GLUCOSE [id number] 12:02:00 Test Item Value Reference Range Comments POC-GLUCOSE METER (BEAKER) 225 mg/dL 70-110 TESTED AT [address] (test siea=3463) [place] [address] RAD, CHEST, 1 VIEW, NON [id number] 10:25:00Reason for exam:->IABPShould this be performed at the bedside?->YesFINAL REPORT Chest one view compared to July 28, 2017 Discussion: IABP marker is at the aortic knob. Bilateral interstitial opacities are similar. No effusion or pneumothorax. Signed: Jaida Terrazas Verified Date/Time: 07/29/2017 10: 25:37 Reading Location: [facility] Radiology Reading Room POCT- GLUCOSE [id number] 08:23:00 Test Item Value Reference Range Comments POC-GLUCOSE METER (BEAKER) 229 mg/dL 70-110 TESTED AT [address] (test sodb=8613) [place] [address] POCT-GLUCOSE [id number] 06:48:00 Test Item Value Reference Range Comments POC-GLUCOSE METER (BEAKER) 204 mg/dL 70-110 TESTED AT [address] (test rnmh=1044) [place] [address] CBC W/PLT COUNT & AUTO [id number] 05:33:00 Test Item Value Reference Range Comments WHITE BLOOD CELL COUNT (BEAKER) (test byqr=950) 13.1 K/ L 3.5-10.5 RED BLOOD CELL COUNT (BEAKER) (test atda=192) 4.43 M/ L 4.63-6.08 HEMOGLOBIN (BEAKER) (test mfno=889) 13.4 GM/DL 13.7-17.5 HEMATOCRIT (BEAKER) (test kgtr=920) 38.9 % 40.1-51.0 MEAN CORPUSCULAR VOLUME (BEAKER) (test lpss=872) 87.8 fL 79.0-92.2 MEAN CORPUSCULAR HEMOGLOBIN (BEAKER) (test 30.2 pg 25.7-32.2 svtq=735) MEAN CORPUSCULAR HEMOGLOBIN CONC (BEAKER) (test 34.4 GM/DL 32.3-36.5 frbv=016) RED CELL DISTRIBUTION WIDTH (BEAKER) (test 12.4 % 11.6-14.4 uubg=416) PLATELET COUNT (BEAKER) (test seqi=776) 144 K/CU MM 150-450 MEAN PLATELET VOLUME (BEAKER) (test elof=627) 12.7 fL 9.4-12.4 NUCLEATED RED BLOOD CELLS (BEAKER) (test 0 /100 WBC 0-0 fdby=438) NEUTROPHILS RELATIVE PERCENT (BEAKER) (test 85 % nspy=896) LYMPHOCYTES RELATIVE PERCENT (BEAKER) (test 9 % cwic=058) MONOCYTES RELATIVE PERCENT (BEAKER) (test 6 % ekpq=130) EOSINOPHILS RELATIVE PERCENT (BEAKER) (test 0 % lkzc=087) BASOPHILS RELATIVE PERCENT (BEAKER) (test 0 % aqoq=929) NEUTROPHILS ABSOLUTE COUNT (BEAKER) (test 11.10 K/ L 1.78-5.38 zkgg=678) LYMPHOCYTES ABSOLUTE COUNT (BEAKER) (test 1.12 K/ L 1.32-3.57 zhja=925) MONOCYTES ABSOLUTE COUNT (BEAKER) (test 0.76 K/ L 0.30-0.82 iqry=122) EOSINOPHILS ABSOLUTE COUNT (BEAKER) (test 0.00 K/ L 0.04-0.54 ojve=762) BASOPHILS ABSOLUTE COUNT (BEAKER) (test 0.02 K/ L 0.01-0.08 qptr=072) IMMATURE GRANULOCYTES-RELATIVE PERCENT (BEAKER) 0 % 0-1 (test stqy=4864) [id number] 05:15:00 Test Item Value Reference Range Comments MAGNESIUM (BEAKER) (test luzx=235) 2.4 mg/dL 1.6-2.6 BASIC METABOLIC [id number] 05:15:00 Test Item Value Reference Range Comments SODIUM (BEAKER) (test 135 meq/L 136-145 twzm=903) POTASSIUM (BEAKER) (test 3.9 meq/L 3.5-5.1 xxng=243) CHLORIDE (BEAKER) (test 99 meq/L 98-107 lfdt=354) CO2 (BEAKER) (test 26 meq/L 22-29 uxoo=395) BLOOD UREA NITROGEN 25 mg/dL 7-21 (BEAKER) (test pnqw=587) CREATININE (BEAKER) (test 1.17 mg/dL 0.57-1.25 zqml=424) GLUCOSE RANDOM (BEAKER) 241 mg/dL 70-105 (test iqrs=894) CALCIUM (BEAKER) (test 8.8 mg/dL 8.4-10.2 eutw=585) EGFR (BEAKER) (test 64 mL/min/1.73 sq m ESTIMATED GFR IS NOT qkpx=8717) ACCURATE CREATININE CLEARANCE IN PREDICTING GLOMERULAR FILTRATION RATE. ESTIMATED GFR IS NOT APPLICABLE FOR DIALYSIS PATIENTS. LIPID [id number] 05:15:00 Test Item Value Reference Range Comments TRIGLYCERIDES (BEAKER) (test fndo=797) 152 mg/dL CHOLESTEROL (BEAKER) (test sfqb=042) 188 mg/dL HDL CHOLESTEROL (BEAKER) (test qaho=526) 31 mg/dL LDL CHOLESTEROL CALCULATED (BEAKER) (test 127 mg/dL czgr=959) Triglyceride Reference Range: Low Risk <150 Borderline 150- 199 High Risk 200-499 Very High Risk >=500Cholesterol Reference Range: Low Risk <200 Borderline 200-239 High Risk > 240HDL Cholesterol Reference Range: Low Risk >=60 High Risk <40LDL Cholesterol Reference Range: Optimal <100 Near Optimal 100-129 Borderline 130-159 High 160-189 Very High [id number] 05:05:00 Test Item Value Reference Range Comments PARTIAL THROMBOPLASTIN TIME (BEAKER) (test 53.8 seconds 22.5-36.0 otrv=873) [id number] 22:36:00 Test Item Value Reference Range Comments MAGNESIUM (BEAKER) (test isap=833) 1.8 mg/dL 1.6-2.6 BASIC METABOLIC [id number] 22:36:00 Test Item Value Reference Range Comments SODIUM (BEAKER) (test 136 meq/L 136-145 uqax=445) POTASSIUM (BEAKER) (test 4.1 meq/L 3.5-5.1 cihb=749) CHLORIDE (BEAKER) (test 99 meq/L 98-107 avqv=496) CO2 (BEAKER) (test 29 meq/L 22-29 uakn=587) BLOOD UREA NITROGEN 27 mg/dL 7-21 (BEAKER) (test asox=918) CREATININE (BEAKER) (test 1.31 mg/dL 0.57-1.25 khrp=325) GLUCOSE RANDOM (BEAKER) 242 mg/dL 70-105 (test ctnl=747) CALCIUM (BEAKER) (test 8.9 mg/dL 8.4-10.2 aylm=704) EGFR (BEAKER) (test 56 mL/min/1.73 sq m ESTIMATED GFR IS NOT hbfv=0225) ACCURATE CREATININE CLEARANCE IN PREDICTING GLOMERULAR FILTRATION RATE. ESTIMATED GFR IS NOT APPLICABLE FOR DIALYSIS PATIENTS. RAD, CHEST, 1 VIEW, NON [id number] 22:14:00While IABP in place and following each repositioning of IABPReason for exam:->While IABP in placeand following each repositioning of IABPShould this be performed at the bedside?-&gt ;YesFINAL REPORT History: IABP. Comparison: None. Findings: A single view of thechest is submitted. The radiopaque tip of an IABP is at the expected position of the superior marginof the aortic arch. The cardiac silhouette is within normal limits for size. There is central pulmonary vascular congestion. Bilateral interstitial opacities, including peripheral intralobular septal thickening, is consistent with pulmonary edema. Patchy airspace opacities may reflect a combination of atelectasis and edema but pneumonitis should be excluded clinically. There is no pneumothorax or acute bony abnormality. Signed: Kendrick Roman MDReport Verified Date/Time: 08/2017 22:14:48 Reading Location: [address] Reading Room Electronically signed by: KENDRICK ROMAN M.D.on 07/28/2017 10:14 PMPOCT- GLUCOSE [id number] 22:01:00 Test Item Value Reference Range Comments POC-GLUCOSE METER (BEAKER) 238 mg/dL 70-110 TESTED AT [address] (test dxut=3013) [facility] [address] [id number] 21:15:00 Test Item Value Reference Range Comments PARTIAL THROMBOPLASTIN TIME (BEAKER) (test 80.4 seconds 22.5-36.0 ilfg=235) Prior to initiating heparinCBC (HEMOGRAM ONLY)2017-07-28 21:05:00 Test Item Value Reference Range Comments WHITE BLOOD CELL COUNT (BEAKER) (test ejso=787) 9.9 K/ L 3.5-10.5 RED BLOOD CELL COUNT (BEAKER) (test dqdu=455) 4.72 M/ L 4.63-6.08 HEMOGLOBIN (BEAKER) (test ltig=179) 14.2 GM/DL 13.7-17.5 HEMATOCRIT (BEAKER) (test gfhj=119) 41.7 % 40.1-51.0 MEAN CORPUSCULAR VOLUME (BEAKER) (test rpkf=898) 88.3 fL 79.0-92.2 MEAN CORPUSCULAR HEMOGLOBIN (BEAKER) (test 30.1 pg 25.7-32.2 taod=321) MEAN CORPUSCULAR HEMOGLOBIN CONC (BEAKER) (test 34.1 GM/DL 32.3-36.5 ceru=764) RED CELL DISTRIBUTION WIDTH (BEAKER) (test 12.5 % 11.6-14.4 pyjj=801) PLATELET COUNT (BEAKER) (test hrte=097) 169 K/CU MM 150-450 MEAN PLATELET VOLUME (BEAKER) (test dcge=331) 11.9 fL 9.4-12.4 NUCLEATED RED BLOOD CELLS (BEAKER) (test 0 /100 WBC 0-0 ssqn=605) [id number] 19:52:00 Test Item Value Reference Range Comments ACTIVATED CLOTTING TIME 323 sec TESTED AT [facility] [address] (BEAKER) (test rspy=853) [facility] [address]
[2018-05-07 15:19] LABS: Absolute Lymphocytes (CBC) 1.1 K/uL (0.7-4.9); Absolute Monocytes 0.6 K/uL (0.1-1.3); Absolute Neutrophil 6.3 K/uL (1.8-8.0); Basophils % 0.3 % (0-1.3); Eosinophils % 0.3 % (0-4.4); Hematocrit 40.5 % (39.6-49.0); MCH 29.7 pg (27.0-35.0); MCV 87.9 fL (80-100); MPV 10.1 fL (7.6-11.3); Monocytes % 6.9 % (3.3-12.3)
[2018-05-07 15:23] LABS: Protime INR 1.01
[2018-05-07 15:35] LABS: Albumin 3.7 g/dL (3.4-5.0); Bilirubin Direct 0.1 mg/dL (0-0.2); Bilirubin Total 0.5 mg/dL (0.2-1.0); CKMB Creatine Kinase MB 3.2 ng/mL (0.3-3.6); Magnesium 2.1 mg/dL (1.8-2.4); Potassium 4.3 mmol/L (3.5-5.1); Protein, Total 7.2 g/dL (6.4-8.2)
--- NOTE | 2018-05-07 15:58 | RAD REPORT ---
EXAM DESCRIPTION: RAD - Chest Single View - 05/07/2018 3:25 pm CLINICAL HISTORY: Chest pain COMPARISON: July 2017 TECHNIQUE: AP portable chest image was obtained 1523 hours . FINDINGS: No failure, infiltrate or acute lung parenchymal finding. Interstitial markings are less p rominent than the comparison study. Trachea is midline. Heart and vasculature are normal. No measurab le pleural effusion and no pneumothorax. No gross bony abnormality seen. No acute aortic findings nakita pected. IMPRESSION: No acute cardiopulmonary process. No suspicious change from comparison.
--- NOTE | 2018-05-07 18:12 | EDPHYS ---
Physician Documentation [facility] Name: Juan Gore Age: 57 yrs Sex: Male : 1960 Arrival Date: 05/07/2018 Time: 14:35 Bed 4 Private MD: Out, [facility] ED Physician Jose Cordero HPI: 05/07 16:10 This 57 yrs old Male presents to ER via Ambulatory with complaints of jr8 shoulder pain. 16:10 left scapular area. Onset: The symptoms/episode began/occurred acutely, this morning. jr8 Modifying factors: the symptoms are alleviated by nothing. The symptoms are aggravated by nothing. Associated signs and symptoms: The patient has no apparent associated signs or symptoms. Severity of symptoms: At their worst the symptoms were mild, in the emergency department the symptoms are unchanged. The patient has experienced a previous episode. The patient has not recently seen a physician. Patient stated that he woke up with aching left shoulder pain this morning. Stated that it seems to be exacerbated with breathing. Stated that last time he had this particular pain, he ended up having a STEMI and triple bypass . Historical: - Allergies: 14:44 No Known Allergies; aj1 - Home Meds: 14:44 montelukast 10 mg oral tab 1 tab once daily [Active]; metformin 500 mg Oral tab 1 tab 2 aj1 times per day [Active]; levothyroxine 112 mcg tab 1 tab once daily [Active]; Lyrica Oral [Active]; aspirin 81 mg Oral chew 1 tab once daily [Active]; atorvastatin 80 mg oral tab 1 tab once daily [Active]; clopidogrel 75 mg oral tab 1 tab once daily [Active]; lantus solostar 40 units twice a day [Active]; Humalog Sub-Q [Active]; - PMHx: 14:44 Diabetes - IDDM; Hypertension; Myocardial infarction; Hypothyroidism; aj1 - PSHx: 14:44 CABG; aj1 - Immunization history:: Flu vaccine is up to date. - Social history:: Smoking status: Patient/guardian denies using tobacco. - Ebola Screening: : Patient denies travel to an Ebola-affected area in the 21 days before illness onset. ROS: 16:10 Eyes: Negative for injury, pain, redness, and discharge, ENT: Negative for injury, jr8 pain, and discharge, Neck: Negative for injury, pain, and swelling, Cardiovascular: Negative for chest pain, palpitations, and edema, Respiratory: Negative for shortness of breath, cough, wheezing, and pleuritic chest pain, Abdomen/GI: Negative for abdominal pain, nausea, vomiting, diarrhea, and constipation, Back: Negative for injury and pain, Skin: Negative for injury, rash, and discoloration, Neuro: Negative for headache, weakness, numbness, tingling, and seizure. 16:10 MS/extremity: Positive for pain, of the left scapular area. Exam: 16:10 Eyes: Pupils equal round and reactive to light, extra-ocular motions intact. Lids and jr8 lashes normal. Conjunctiva and sclera are non-icteric and not injected. Cornea within normal limits. Periorbital areas with no swelling, redness, or edema. ENT: Nares patent. No nasal discharge, no septal abnormalities noted. Tympanic membranes are normal and external auditory canals are clear. Oropharynx with no redness, swelling, or masses, exudates, or evidence of obstruction, uvula midline. Mucous membranes moist. Neck: Trachea midline, no thyromegaly or masses palpated, and no cervical lymphadenopathy. Supple, full range of motion without nuchal rigidity, or vertebral point tenderness. No Meningismus. Chest/axilla: Normal chest wall appearance and motion. Nontender with no deformity. No lesions are appreciated. Cardiovascular: Regular rate and rhythm with a normal S1 and S2. No gallops, murmurs, or rubs. Normal PMI, no JVD. No pulse deficits. Respiratory: Lungs have equal breath sounds bilaterally, clear to auscultation and percussion. No rales, rhonchi or wheezes noted. No increased work of breathing, no retractions or nasal flaring. Abdomen/GI: Soft, non-tender, with normal bowel sounds. No distension or tympany. No guarding or rebound. No evidence of tenderness throughout. Back: No spinal tenderness. No costovertebral tenderness. Full range of motion. Skin: Warm, dry with normal turgor. Normal color with no rashes, no lesions, and no evidence of cellulitis. MS/ Extremity: Pulses equal, no cyanosis. Neurovascular intact. Full, normal range of motion. Neuro: Awake and alert, GCS 15, oriented to person, place, time, and situation. Cranial nerves II-XII grossly intact. Motor strength 5/5 in all extremities. Sensory grossly intact. Cerebellar exam normal. Normal gait. Vital Signs: 14:44 BP 150 / 88; Pulse 106; Resp 20; Temp 98.6(TE); Pulse Ox 98% on R/A; Weight 95.25 kg aj1 (R); Height 6 ft. 0 in. (182.88 cm); Pain 2/10; 15:33 BP 142 / 80; Pulse 103; Resp 14; Pulse Ox 95% on R/A; tw2 16:26 BP 146 / 81; Pulse 95; Resp 16; Pulse Ox 95% on R/A; tw2 17:09 BP 134 / 83; Pulse 92; Resp 15; Pulse Ox 95% on R/A; tw2 17:55 BP 135 / 83; Pulse 92; Resp 17; Pulse Ox 95% on R/A; tw2 18:22 BP 137 / 82; Pulse 92; Resp 17; Pulse Ox 95% on R/A; tw2 14:44 Body Mass Index 28.48 (95.25 kg, 182.88 cm) aj1 MDM: 14:54 Patient medically screened. jr8 18:09 Data reviewed: vital signs, nurses notes, lab test result(s), EKG, radiologic studies, jr8 plain films, and as a result, I will discharge patient. Data interpreted: Pulse oximetry: on room air is 95 %. Interpretation: normal. Counseling: I had a detailed discussion with the patient and/or guardian regarding: the historical points, exam findings, and any diagnostic results supporting the discharge/admit diagnosis, lab results, radiology results, the need for outpatient follow up, a child day care provider, to return to the emergency department if symptoms worsen or persist or if there are any questions or concerns that arise at home. ED course: Patient remains stable in exam room. Feeling better. Will still have occasional pain in shoulder blade with respiration but remains without chest pain or dyspnea. Both troponins negative. Will send home to f/u. If worse to come back for further evaluation. Family and patient are good with this and will follow instructions . 05/07 14:54 Order name: Basic Metabolic Panel; Complete Time: 15:56 8 05/07 14:54 Order name: CBC with Diff; Complete Time: 15:56 jr8 05/07 14:54 Order name: Ckmb; Complete Time: 15:56 05/07 14:54 Order name: CPK; Complete Time: 15:56 05/07 14:54 Order name: LFT's; Complete Time: 15:56 05/07 14:54 Order name: Magnesium; Complete Time: 15:56 05/07 14:54 Order name: PT-INR; Complete Time: 15:56 05/07 14:54 Order name: Ptt, Activated; Complete Time: 15:56 05/07 14:54 Order name: Troponin (emerg Dept Use Only); Complete Time: 15:56 05/07 14:54 Order name: XRAY Chest (1 view); Complete Time: 16:00 05/07 14:54 Order name: EKG; Complete Time: 14:55 05/07 14:54 Order name: Cardiac monitoring; Complete Time: 15:05/07 14:54 Order name: EKG - Nurse/Tech; Complete Time: 15:05/07 17:32 Order name: Troponin (emerg Dept Use Only); Complete Time: 18:08 05/07 14:54 Order name: IV Saline Lock; Complete Time: 15:06 05/07 14:54 Order name: Labs collected and sent; Complete Time: 15:06 05/07 14:54 Order name: O2 Per Protocol; Complete Time: 15:06 05/07 14:54 Order name: O2 Sat Monitoring; Complete Time: 15:06 Administered Medications: No medications were administered Point of Care Testing: Blood Glucose: 18:05 Blood Glucose: 142 mg/dL; tw2 Ranges: Critical Glucose Levels:Adult <50 mg/dl or >400 mg/dl <40 mg/dl or >180 mg/dl Disposition: 05/07/18 18:12 Discharged to Home. Impression: Pain in left shoulder. - Condition is Stable. - Discharge Instructions: Arthralgia, Nonspecific Chest Pain, Shoulder Pain. - Medication Reconciliation Form, Thank You Letter, Antibiotic Education, Prescription Opioid Use, Work release form form. - Follow up: Private Physician; When: 2 - 3 days; Reason: Recheck today's complaints, Continuance of care, Re-evaluation by your physician. - Problem is new. - Symptoms have improved. Addendum: 05/09/2018 14:47 Co-signature as Attending Physician, Jose Cordero MD I agree with the assessment and w a plan of care. Signatures: Dispatcher [employer] EDPat Núñez, RN RN aj1 Peter White PA PA jr8 Dinorah Flowers RN RN tw2 Jose Cordero MD MD ia Corrections: (The following items were deleted from the chart) 05/07 16:18 16:10 This 57 yrs old Male presents to ER via Ambulatory with complaints of jr8 Chest Pain > 30 y/o. jr8 18:25 18:12 05/07/2018 18:12 Discharged to Home. Impression: Pain in left shoulder. Condition tw2 is Stable. Forms are Medication Reconciliation Form, Thank You Letter, Antibiotic Education, Prescription Opioid Use. Follow up: Private Physician; When: 2 - 3 days; Reason: Recheck today's complaints, Continuance of care, Re-evaluation by your physician. Problem is new. Symptoms have improved. jr8
--- NOTE | 2018-05-07 18:12 | ER ---
Nurse's Notes [facility] Name: Juan Gore Age: 57 yrs Sex: Male : 1960 Arrival Date: 05/07/2018 Time: 14:35 Bed 4 Private MD: Out, [facility] Diagnosis: Pain in left shoulder Presentation: 05/07 14:40 Presenting complaint: Patient states: Pain to left upper back since 0300 this morning aj1 that is worse with deep breathing. States that this is the same pain that he had the last time that he had a heart attack. Denies SOB, palpitations. Transition of care: patient was not received from another setting of care. Onset of symptoms was May 07, 2018 at 03:00. Risk Assessment: Do you want to hurt yourself or someone else? Patient reports no desire to harm self or others. Initial Sepsis Screen: Does the patient meet any 2 criteria? No. Patient's initial sepsis screen is negative. Does the patient have a suspected source of infection? No. Patient's initial sepsis screen is negative. Care prior to arrival: None. 14:40 Method Of Arrival: Ambulatory aj1 14:40 Acuity: CHRISTINE 2 aj1 Triage Assessment: 14:44 General: Appears in no apparent distress. uncomfortable, Behavior is calm, cooperative, aj1 appropriate for age. Pain: Complains of pain in left scapular area Pain does not radiate. Pain currently is 2 out of 10 on a pain scale. Quality of pain is described as aching, dull, stabbing, Pain began 0300 this morning Is intermittent. Cardiovascular: Denies chest pain, palpitations, shortness of breath, syncope, vomiting. Historical: - Allergies: 14:44 No Known Allergies; aj1 - Home Meds: 14:44 montelukast 10 mg oral tab 1 tab once daily [Active]; metformin 500 mg Oral tab 1 tab 2 aj1 times per day [Active]; levothyroxine 112 mcg tab 1 tab once daily [Active]; Lyrica Oral [Active]; aspirin 81 mg Oral chew 1 tab once daily [Active]; atorvastatin 80 mg oral tab 1 tab once daily [Active]; clopidogrel 75 mg oral tab 1 tab once daily [Active]; lantus solostar 40 units twice a day [Active]; Humalog Sub-Q [Active]; - PMHx: 14:44 Diabetes - IDDM; Hypertension; Myocardial infarction; Hypothyroidism; aj1 - PSHx: 14:44 CABG; aj1 - Immunization history:: Flu vaccine is up to date. - Social history:: Smoking status: Patient/guardian denies using tobacco. - Ebola Screening: : Patient denies travel to an Ebola-affected area in the 21 days before illness onset. Screenin:05 Abuse screen: Denies threats or abuse. Nutritional screening: No deficits noted. tw2 Tuberculosis screening: No symptoms or risk factors identified. Fall Risk None identified. Assessment: 15:04 General: Appears in no apparent distress. Behavior is calm, cooperative, appropriate tw2 for age. Pain: Complains of pain in back and left scapular area. Neuro: Level of Consciousness is awake, alert, obeys commands, Oriented to person, place, time, situation. Cardiovascular: Heart tones S1 S2 Capillary refill < 3 seconds. Respiratory: Reports pain with respiration pain with deep breath Airway is patent Respiratory effort is even, unlabored, Respiratory pattern is regular, symmetrical. GI: Abdomen is round Bowel sounds present X 4 quads. : No signs and/or symptoms were reported regarding the genitourinary system. EENT: No signs and/or symptoms were reported regarding the EENT system. Derm: Skin is intact, is healthy with good turgor, Skin is dry, Skin temperature is warm. Musculoskeletal: Range of motion: intact in all extremities. 15:33 Reassessment: Patient appears in no apparent distress at this time. No changes from tw2 previously documented assessment. Patient and/or family updated on plan of care and expected duration. Pain level reassessed. Patient is alert, oriented x 3, equal unlabored respirations, skin warm/dry/pink. 16:26 Reassessment: Patient appears in no apparent distress at this time. No changes from tw2 previously documented assessment. Patient and/or family updated on plan of care and expected duration. Pain level reassessed. Patient is alert, oriented x 3, equal unlabored respirations, skin warm/dry/pink. 17:09 Reassessment: Patient appears in no apparent distress at this time. No changes from tw2 previously documented assessment. Patient and/or family updated on plan of care and expected duration. Pain level reassessed. Patient is alert, oriented x 3, equal unlabored respirations, skin warm/dry/pink. 17:55 Reassessment: Patient appears in no apparent distress at this time. No changes from tw2 previously documented assessment. Patient and/or family updated on plan of care and expected duration. Pain level reassessed. Patient is alert, oriented x 3, equal unlabored respirations, skin warm/dry/pink. Vital Signs: 14:44 BP 150 / 88; Pulse 106; Resp 20; Temp 98.6(TE); Pulse Ox 98% on R/A; Weight 95.25 kg aj1 (R); Height 6 ft. 0 in. (182.88 cm); Pain 2/10; 15:33 BP 142 / 80; Pulse 103; Resp 14; Pulse Ox 95% on R/A; tw2 16:26 BP 146 / 81; Pulse 95; Resp 16; Pulse Ox 95% on R/A; tw2 17:09 BP 134 / 83; Pulse 92; Resp 15; Pulse Ox 95% on R/A; tw2 17:55 BP 135 / 83; Pulse 92; Resp 17; Pulse Ox 95% on R/A; tw2 18:22 BP 137 / 82; Pulse 92; Resp 17; Pulse Ox 95% on R/A; tw2 14:44 Body Mass Index 28.48 (95.25 kg, 182.88 cm) aj1 Vitals: 15:03 Cardiac Rhythm Assessment Sinus tach Other with multiform PVC's. tw2 ED Course: 14:35 Patient arrived in ED. sb2 14:35 Out, [facility] is Private Physician. sb2 14:41 Triage completed. aj1 14:44 Arm band placed on Patient placed in an exam room. aj1 14:54 Peter White PA is PHCP. jr8 14:54 Jose Cordero MD is Attending Physician. jr8 15:02 Placed in gown. Bed in low position. Adult w/ patient. monitoring tech on. Pulse ox on. tw2 NIBP on. 15:03 No provider procedures requiring assistance completed. Inserted saline lock: 20 gauge tw2 in right antecubital area, using aseptic technique. ,using aseptic technique. per LAVERN,RN Blood collected. Patient maintains SpO2 saturation greater than 95% on room air. 15:05 EKG done, by surgical technology instructor. reviewed by Peter JORDAN. tc 15:06 Dinorah Flowers, RN is Primary Nurse. tw2 15:24 X-ray completed. Portable x-ray completed in exam room. Patient tolerated procedure kc2 well. 15:25 XRAY Chest (1 view) In Process Unspecified. EDMS 17:56 Troponin (emerg Dept Use Only) Sent. tw2 18:23 IV discontinued, intact, bleeding controlled, No redness/swelling at site. Pressure tw2 dressing applied. Administered Medications: No medications were administered Point of Care Testing: Blood Glucose: 18:05 Blood Glucose: 142 mg/dL; tw2 Ranges: Outcome: 18:12 Discharge ordered by . jr8 18:23 Discharged to home ambulatory, with significant other. tw2 18:23 Condition: stable 18:23 Discharge instructions given to patient, significant other, Instructed on discharge instructions, follow up and referral plans. Demonstrated understanding of instructions, follow-up care. 18:25 Patient left the ED. tw2 Signatures: Dispatcher [employer] EDMO Pat Balbuena, RN RN aj1 Peter White PA PA jr8 Lindsay Ramsey, manager spa EKG Ttc Dinorah Flowers, RN RN tw2 Tavia Russell kc2 Lisa Garcia 2
--- NOTE | 2018-05-08 06:38 | EKG ---
Test Date: 2018-05-07 Test Time: 14:56:30 Gauge Controller: DICK MEASUREMENT RESULTS: Intervals: Rate: 104 SD: 150 QRSD: 92 QT: 342 QTc: 449 [place]: P: 51 SD: 150 QRS: -16 T: 34 INTERPRETIVE STATEMENTS: Sinus tachycardia Inferior infarct, age undetermined Abnormal ECG Compared to ECG 07/28/2017 17:25:29 Myocardial infarct finding now present Sinus rhythm no longer present Ventricular premature complex(es) no longer present ST (T wave) deviation no longer present Possible ischemia no longer present Electronically Signed On 05-08-18 06:37:38 CDT by Ruy Amaya
== END 2018-05-07 18:25 | disposition home or self-care (01) ==
LOC: ER 14:33
DX: M25.512 Pain in left shoulder (principal); E11.9 Type 2 diabetes mellitus without complications; I10 Essential (primary) hypertension; E03.9 Hypothyroidism, unspecified; Z79.4 Long term (current) use of insulin; I25.2 Old myocardial infarction; Z95.1 Presence of aortocoronary bypass graft
CPT/HCPCS: 36415; 71045; 80048; 80076; 82550; 82553; 82962; 83735; 84484; 85025; 85610; 85730; 93005; 99285

== ENCOUNTER 2019-03-09 08:50 | Day surgery (SDC) | payer BC, OTHER ==
--- OUTSIDE RECORDS SUMMARY | 2019-03-09 08:55 | XMS REPORT | Clinical Summary ---
:1960 Author Organization [facility] Address [address] [place] [address] Care Team Providers Name Role Phone Unavailable Primary Care Provider Unavailable Allergies No Known Allergies Medications Medication Sig Dispensed Refills Start Date End Date Status montelukast Take 10 mg by mouth 0 Active (SINGULAIR) 10 mg nightly. tablet pregabalin (LYRICA) Take 75 mg by mouth 0 Active 75 MG capsule 3 (three) times daily. metFORMIN Take 1 tablet (500 60 tablet 2 08/09/2017 Active (GLUCOPHAGE) 500 MG mg total) by mouth 2 tablet (two) times daily with breakfast and dinner. insulin detemir Inject 0.3 mLs (30 3 mL 11 08/09/2017 Active (LEVEMIR) 100 Units total) unit/mL (3 mL) InPn subcutaneously 2 injection (two) times daily. insulin lispro 200 Inject 8-20 Units 3 mL 11 08/09/2017 Active unit/mL (3 mL) InPn subcutaneously 3 (three) times daily before meals. aspirin 81 MG Take 1 tablet (81 mg 30 tablet 11 08/10/2017 chewable tablet total) by mouth 8 daily. atorvastatin Take 1 tablet (40 mg 30 tablet 11 08/09/2017 (LIPITOR) 40 MG total) by mouth 8 tablet nightly. clopidogrel Take 1 tablet (75 mg 30 tablet 11 08/10/2017 (PLAVIX) 75 mg total) by mouth 8 tablet daily. levothyroxine Take 1 tablet (112 30 tablet 11 08/10/2017 (SYNTHROID, mcg total) by mouth 8 LEVOTHROID) 112 MCG Every morning on an tablet empty stomach. Active Problems Problem Noted Date Paroxysmal atrial fibrillation 08/16/2017 Neuropathy 08/16/2017 Stage 2 chronic kidney disease 08/16/2017 Uncontrolled type 2 diabetes mellitus with hyperglycemia 08/01/2017 CAD (coronary artery disease), [place] coronary artery 07/29/2017 Type 2 diabetes mellitus with other circulatory complication 07/29/2017 Mixed hyperlipidemia 07/29/2017 STEMI (ST elevation myocardial infarction) 07/28/2017 Essential hypertension Social History Tobacco Use Types Packs/Day Years Used Date Never Smoker Smokeless Tobacco: Never Used Sex Assigned at Date Recorded Not on file Job Start Date Occupation Industry Not on file Not on file Not on file Travel History Travel Start Travel End No recent travel history available. Last Filed Vital Signs Not on file Plan of Treatment Not on file Results Not on fileafter 03/08/2018 Insurance Payer Benefit Plan / Subscriber ID Type Phone Address Group BLUE [employer]OSS/BLUE [employer]BS PPO POS EPO xxxxxxxxxxxx PPO [phone] [address] [place] [address] Advance Directives For more information, please contact:[address] [phone] Code Status Date Activated Date Inactivated Comments Full Code 07/30/2017 12:07 PM 08/09/2017 2:59 PM This code status was determined by: Patient Full Code 07/28/2017 8:37 PM 07/30/2017 12:07 PM This code status was determined by: Patient
--- OUTSIDE RECORDS SUMMARY | 2019-03-09 09:00 | XMS REPORT ---
:1960 Author Organization [facility] Address [address] [place] [address] Care Team Providers Name Role Phone BENNETT [...] TIME (BEAKER) (test 120 sec TESTED AT [address] hkvd=300) [place] [address] B-TYPE NATRIURETIC FACTOR (BNP)2017-08-16 10:44:00 Test Item Value Reference Range Comments B-TYPE NATRIURETIC PEPTIDE (BEAKER) (test 456 pg/mL 0-100 mojl=298) [id number] 10:36:00 Test Item Value Reference Range Comments MAGNESIUM (BEAKER) (test jsxv=405) 2.0 mg/dL 1.6-2.6 BASIC METABOLIC [id number] 10:36:00 Test Item Value Reference Range Comments SODIUM (BEAKER) (test 135 meq/L 136-145 uayw=750) POTASSIUM (BEAKER) (test 5.1 meq/L 3.5-5.1 kyne=651) CHLORIDE (BEAKER) (test 100 meq/L 98-107 swyn=382) CO2 (BEAKER) (test 27 meq/L -29 pqmt=180) BLOOD UREA NITROGEN 26 mg/dL 7-21 (BEAKER) (test vgmr=872) CREATININE (BEAKER) (test 1.06 mg/dL 0.57-1.25 hovq=123) GLUCOSE RANDOM (BEAKER) 175 mg/dL 70-105 (test iymu=395) CALCIUM (BEAKER) (test 9.5 mg/dL 8.4-10.2 maqv=277) EGFR (BEAKER) (test 72 mL/min/1.73 sq m ESTIMATED GFR IS NOT hkkl=3358) ACCURATE CREATININE CLEARANCE IN PREDICTING GLOMERULAR FILTRATION RATE. ESTIMATED GFR IS NOT APPLICABLE FOR DIALYSIS PATIENTS. POCT-GLUCOSE [id number] 13:51:00 Test Item Value Reference Range Comments POC-GLUCOSE METER (BEAKER) 272 mg/dL 70-110 TESTED AT [place] [id number] [facility] (test nsbr=4899) [place] [id number] POCT-GLUCOSE [id number] 08:46:00 Test Item Value Reference Range Comments POC-GLUCOSE METER (BEAKER) 205 mg/dL 70-110 TESTED AT [address] (test hgmg=4066) [place] [id number] BASIC METABOLIC [id number] 07:46:00 Test Item Value Reference Range Comments SODIUM (BEAKER) (test 136 meq/L 136-145 dmwe=301) POTASSIUM (BEAKER) (test 4.2 meq/L 3.5-5.1 urfc=414) CHLORIDE (BEAKER) (test 98 meq/L 98-107 rgfn=346) CO2 (BEAKER) (test 32 meq/L 22-29 wghl=499) BLOOD UREA NITROGEN 12 mg/dL 7-21 (BEAKER) (test nnim=757) CREATININE (BEAKER) (test 0.90 mg/dL 0.57-1.25 nbza=353) GLUCOSE RANDOM (BEAKER) 152 mg/dL 70-105 (test yqta=243) CALCIUM (BEAKER) (test 8.6 mg/dL 8.4-10.2 lquj=229) EGFR (BEAKER) (test 87 mL/min/1.73 sq m ESTIMATED GFR IS NOT oprh=3380) ACCURATE CREATININE CLEARANCE IN PREDICTING GLOMERULAR FILTRATION RATE. ESTIMATED GFR IS NOT APPLICABLE FOR DIALYSIS PATIENTS. CBC W/PLT COUNT & AUTO [id number] 07:19:00 Test Item Value Reference Range Comments WHITE BLOOD CELL COUNT (BEAKER) (test ahuw=956) 4.6 K/ L 3.5-10.5 RED BLOOD CELL COUNT (BEAKER) (test uokb=699) 2.91 M/ L 4.63-6.08 HEMOGLOBIN (BEAKER) (test nwfr=831) 8.4 GM/DL 13.7-17.5 HEMATOCRIT (BEAKER) (test lubj=356) 26.5 % 40.1-51.0 MEAN CORPUSCULAR VOLUME (BEAKER) (test yyqw=890) 91.1 fL 79.0-92.2 MEAN CORPUSCULAR HEMOGLOBIN (BEAKER) (test 28.9 pg 25.7-32.2 qyvq=435) MEAN CORPUSCULAR HEMOGLOBIN CONC (BEAKER) (test 31.7 GM/DL 32.3-36.5 yprj=715) RED CELL DISTRIBUTION WIDTH (BEAKER) (test 13.8 % 11.6-14.4 ahfn=456) PLATELET COUNT (BEAKER) (test kyot=491) 166 K/CU MM 150-450 MEAN PLATELET VOLUME (BEAKER) (test wxcm=337) 11.1 fL 9.4-12.4 NUCLEATED RED BLOOD CELLS (BEAKER) (test 0 /100 WBC 0-0 snrl=698) NEUTROPHILS RELATIVE PERCENT (BEAKER) (test 62 % dagr=883) LYMPHOCYTES RELATIVE PERCENT (BEAKER) (test 24 % udqi=036) MONOCYTES RELATIVE PERCENT (BEAKER) (test 10 % idqy=513) EOSINOPHILS RELATIVE PERCENT (BEAKER) (test 3 % bvpn=823) BASOPHILS RELATIVE PERCENT (BEAKER) (test 1 % zxnc=130) NEUTROPHILS ABSOLUTE COUNT (BEAKER) (test 2.86 K/ L 1.78-5.38 wmrz=796) LYMPHOCYTES ABSOLUTE COUNT (BEAKER) (test 1.08 K/ L 1.32-3.57 ukhw=536) MONOCYTES ABSOLUTE COUNT (BEAKER) (test 0.46 K/ L 0.30-0.82 mfmk=725) EOSINOPHILS ABSOLUTE COUNT (BEAKER) (test 0.12 K/ L 0.04-0.54 rwvy=423) BASOPHILS ABSOLUTE COUNT (BEAKER) (test 0.03 K/ L 0.01-0.08 ekaj=621) IMMATURE GRANULOCYTES-RELATIVE PERCENT (BEAKER) 1 % 0-1 (test tfol=7164) POCT-GLUCOSE [id number] 21:01:00 Test Item Value Reference Range Comments POC-GLUCOSE METER (BEAKER) 189 mg/dL 70-110 TESTED AT [address] (test uzlh=9730) [place] [id number] POCT-GLUCOSE [id number] 17:30:00 Test Item Value Reference Range Comments POC-GLUCOSE METER (BEAKER) 260 mg/dL 70-110 TESTED AT [address] (test bgyo=5455) [place] [address] POCT-GLUCOSE [id number] 12:53:00 Test Item Value Reference Range Comments POC-GLUCOSE METER (BEAKER) 322 mg/dL 70-110 TESTED AT [address] (test ddwx=0830) [place] [address] RAD, CHEST, 1 VIEW, NON [id number] 07:53:00Reason for exam:->acute pulmonary edema, aggressive diuresis [...] Acharya Verified Date/Time: 08/08/2017 07:53:05 Reading Location: [facility] Diagnostic Imaging Reading Room - [place] [address] POCT-GLUCOSE [id number] 07:40:00 Test Item Value Reference Range Comments POC-GLUCOSE METER (BEAKER) 248 mg/dL 70-110 TESTED AT [address] (test ygjj=3321) [place] [id number] BASIC METABOLIC [id number] 03:58:00 Test Item Value Reference Range Comments SODIUM (BEAKER) (test 134 meq/L 136-145 jnag=472) POTASSIUM (BEAKER) (test 3.9 meq/L 3.5-5.1 ltpw=279) CHLORIDE (BEAKER) (test 96 meq/L 98-107 zvcy=454) CO2 (BEAKER) (test 29 meq/L 22-29 swdp=402) BLOOD UREA NITROGEN 16 mg/dL 7-21 (BEAKER) (test bhfz=235) CREATININE (BEAKER) (test 1.01 mg/dL 0.57-1.25 fkpq=734) GLUCOSE RANDOM (BEAKER) 214 mg/dL 70-105 (test zvuh=857) CALCIUM (BEAKER) (test 8.3 mg/dL 8.4-10.2 aqdp=891) EGFR (BEAKER) (test 76 mL/min/1.73 sq m ESTIMATED GFR IS NOT vvtp=4673) ACCURATE CREATININE CLEARANCE IN PREDICTING GLOMERULAR FILTRATION RATE. ESTIMATED GFR IS NOT APPLICABLE FOR DIALYSIS PATIENTS. CBC W/PLT COUNT & AUTO [id number] 03:46:00 Test Item Value Reference Range Comments WHITE BLOOD CELL COUNT (BEAKER) (test ayub=182) 5.3 K/ L 3.5-10.5 RED BLOOD CELL COUNT (BEAKER) (test cstt=201) 2.80 M/ L 4.63-6.08 HEMOGLOBIN (BEAKER) (test usxa=527) 8.1 GM/DL 13.7-17.5 HEMATOCRIT (BEAKER) (test izok=965) 25.3 % 40.1-51.0 MEAN CORPUSCULAR VOLUME (BEAKER) (test rhon=424) 90.4 fL 79.0-92.2 MEAN CORPUSCULAR HEMOGLOBIN (BEAKER) (test 28.9 pg 25.7-32.2 rzrc=548) MEAN CORPUSCULAR HEMOGLOBIN CONC (BEAKER) (test 32.0 GM/DL 32.3-36.5 xnkv=179) RED CELL DISTRIBUTION WIDTH (BEAKER) (test 13.3 % 11.6-14.4 mcah=376) PLATELET COUNT (BEAKER) (test ggng=154) 160 K/CU MM 150-450 MEAN PLATELET VOLUME (BEAKER) (test esot=485) 10.6 fL 9.4-12.4 NUCLEATED RED BLOOD CELLS (BEAKER) (test 0 /100 WBC 0-0 fmok=380) NEUTROPHILS RELATIVE PERCENT (BEAKER) (test 67 % ccld=811) LYMPHOCYTES RELATIVE PERCENT (BEAKER) (test 18 % yzsp=117) MONOCYTES RELATIVE PERCENT (BEAKER) (test 10 % nudw=619) EOSINOPHILS RELATIVE PERCENT (BEAKER) (test 3 % fmwh=450) BASOPHILS RELATIVE PERCENT (BEAKER) (test 0 % beou=646) NEUTROPHILS ABSOLUTE COUNT (BEAKER) (test 3.54 K/ L 1.78-5.38 hdvy=254) LYMPHOCYTES ABSOLUTE COUNT (BEAKER) (test 0.94 K/ L 1.32-3.57 ddex=902) MONOCYTES ABSOLUTE COUNT (BEAKER) (test 0.54 K/ L 0.30-0.82 nhei=691) EOSINOPHILS ABSOLUTE COUNT (BEAKER) (test 0.15 K/ L 0.04-0.54 kkha=046) BASOPHILS ABSOLUTE COUNT (BEAKER) (test 0.01 K/ L 0.01-0.08 ahtq=891) IMMATURE GRANULOCYTES-RELATIVE PERCENT (BEAKER) 2 % 0-1 (test hray=4741) POCT-GLUCOSE [id number] 20:37:00 Test Item Value Reference Range Comments POC-GLUCOSE METER (BEAKER) 281 mg/dL 70-110 TESTED AT [address] (test xzly=1057) [place] [address] POCT-GLUCOSE [id number] 17:10:00 Test Item Value Reference Range Comments POC-GLUCOSE METER (BEAKER) 294 mg/dL 70-110 TESTED AT [address] (test mhzx=5810) [place] [address] CBC W/PLT COUNT & AUTO [id number] 11:54:00 Test Item Value Reference Range Comments WHITE BLOOD CELL COUNT (BEAKER) (test jkbf=257) 7.0 K/ L 3.5-10.5 RED BLOOD CELL COUNT (BEAKER) (test ydrj=554) 2.77 M/ L 4.63-6.08 HEMOGLOBIN (BEAKER) (test xyym=343) 8.4 GM/DL 13.7-17.5 HEMATOCRIT (BEAKER) (test hljj=179) 24.7 % 40.1-51.0 MEAN CORPUSCULAR VOLUME (BEAKER) (test vuaz=893) 89.2 fL 79.0-92.2 MEAN CORPUSCULAR HEMOGLOBIN (BEAKER) (test 30.3 pg 25.7-32.2 vhqh=351) MEAN CORPUSCULAR HEMOGLOBIN CONC (BEAKER) (test 34.0 GM/DL 32.3-36.5 dgfs=018) RED CELL DISTRIBUTION WIDTH (BEAKER) (test 13.1 % 11.6-14.4 qvtb=754) PLATELET COUNT (BEAKER) (test tssr=002) 166 K/CU MM 150-450 MEAN PLATELET VOLUME (BEAKER) (test wwxg=091) 10.7 fL 9.4-12.4 NUCLEATED RED BLOOD CELLS (BEAKER) (test 0 /100 WBC 0-0 wave=459) NEUTROPHILS RELATIVE PERCENT (BEAKER) (test 66 % ockv=869) LYMPHOCYTES RELATIVE PERCENT (BEAKER) (test 17 % pjyt=770) MONOCYTES RELATIVE PERCENT (BEAKER) (test 10 % dkal=551) EOSINOPHILS RELATIVE PERCENT (BEAKER) (test 2 % hnzv=599) BASOPHILS RELATIVE PERCENT (BEAKER) (test 0 % znyi=233) NEUTROPHILS ABSOLUTE COUNT (BEAKER) (test 4.61 K/ L 1.78-5.38 kadw=767) LYMPHOCYTES ABSOLUTE COUNT (BEAKER) (test 1.16 K/ L 1.32-3.57 eqyu=653) MONOCYTES ABSOLUTE COUNT (BEAKER) (test 0.68 K/ L 0.30-0.82 wwok=495) EOSINOPHILS ABSOLUTE COUNT (BEAKER) (test 0.16 K/ L 0.04-0.54 awso=376) BASOPHILS ABSOLUTE COUNT (BEAKER) (test 0.02 K/ L 0.01-0.08 hzuk=793) IMMATURE GRANULOCYTES-RELATIVE PERCENT (BEAKER) 5 % 0-1 (test wxnn=9279) (MANUAL DIFFERENTIAL)2017-08-07 11:54:00 Test Item Value Reference Range Comments TOTAL COUNTED (BEAKER) (test imef=2085) WBC MORPHOLOGY (BEAKER) (test lmrj=948) Normal PLT MORPHOLOGY (BEAKER) (test wqqv=014) Normal ANISOCYTOSIS (BEAKER) (test mtyp=594) 1+ few POLYCHROMATOPHILLIC RBCS(BEAKER) (test kmch=284) 2+ moderate TEAR DROP CELLS (BEAKER) (test vnmj=763) 1+ few RAD, CHEST, 1 VIEW, NON [id number] 10:23:00Reason for exam:->acute pulmonary edema, aggressive diuresis over 24hrs.Should this be performed at the bedside?->YesFINAL REPORT COMPARISON: 08/06/2017 TECHNIQUE: Single view of the chest FINDINGS: Mild bilateral interstitial opacities are stable. No large effusions or pneumothorax. Right-sided internal jugular central line has been removed. No other significant change. Signed: Gerson Krishnamurthy MDReport Verified Date/Time: 08/07/2017 10:23:55 Reading Location: [facility] Radiology Reading [facility] [id number] 09:31:00 Test Item Value Reference Range Comments TOTAL PROTEIN (BEAKER) (test xfrb=247) 6.0 gm/dL 6.0-8.3 ALBUMIN (BEAKER) (test cjoo=7621) 3.0 g/dL 3.5-5.0 BILIRUBIN TOTAL (BEAKER) (test mrdg=262) 0.8 mg/dL 0.2-1.2 BILIRUBIN DIRECT (BEAKER) (test acam=782) 0.4 mg/dL 0.1-0.5 ALKALINE PHOSPHATASE (BEAKER) (test uoti=181) 69 U/L 40-150 AST (SGOT) (BEAKER) (test pqrm=575) 58 U/L 5-34 ALT (SGPT) (BEAKER) (test qpdn=542) 430 U/L 6-55 POCT-GLUCOSE [id number] 08:08:00 Test Item Value Reference Range Comments POC-GLUCOSE METER (BEAKER) 220 mg/dL 70-110 TESTED AT [address] (test pmgj=4763) [facility] [address] BASIC METABOLIC [id number] 07:41:00 Test Item Value Reference Range Comments SODIUM (BEAKER) (test 135 meq/L 136-145 dbjq=919) POTASSIUM (BEAKER) (test 4.0 meq/L 3.5-5.1 wksh=235) CHLORIDE (BEAKER) (test 96 meq/L 98-107 ihad=946) CO2 (BEAKER) (test 34 meq/L 22-29 ifwp=607) BLOOD UREA NITROGEN 24 mg/dL 7-21 (BEAKER) (test itoo=760) CREATININE (BEAKER) (test 1.12 mg/dL 0.57-1.25 meqn=097) GLUCOSE RANDOM (BEAKER) 197 mg/dL 70-105 (test lecj=566) CALCIUM (BEAKER) (test 8.1 mg/dL 8.4-10.2 yoks=990) EGFR (BEAKER) (test 67 mL/min/1.73 sq m ESTIMATED GFR IS NOT zbkp=4784) ACCURATE CREATININE CLEARANCE IN PREDICTING GLOMERULAR FILTRATION RATE. ESTIMATED GFR IS NOT APPLICABLE FOR DIALYSIS PATIENTS. DIGOXIN [id number] 04:05:00 Test Item Value Reference Range Comments DIGOXIN LEVEL (BEAKER) (test edej=652) 0.5 ng/mL 0.8-2.0 BASIC METABOLIC [id number] 03:59:00 Test Item Value Reference Range Comments SODIUM (BEAKER) (test 133 meq/L 136-145 kosz=883) POTASSIUM (BEAKER) (test 3.9 meq/L 3.5-5.1 mafk=759) CHLORIDE (BEAKER) (test 94 meq/L 98-107 atau=362) CO2 (BEAKER) (test 34 meq/L 22-29 rjjb=253) BLOOD UREA NITROGEN 26 mg/dL 7-21 (BEAKER) (test ojid=765) CREATININE (BEAKER) (test 1.15 mg/dL 0.57-1.25 bndq=401) GLUCOSE RANDOM (BEAKER) 205 mg/dL 70-105 (test cknt=172) CALCIUM (BEAKER) (test 8.0 mg/dL 8.4-10.2 bjrx=511) EGFR (BEAKER) (test 65 mL/min/1.73 sq m ESTIMATED GFR IS NOT ypcr=0063) ACCURATE CREATININE CLEARANCE IN PREDICTING GLOMERULAR FILTRATION RATE. ESTIMATED GFR IS NOT APPLICABLE FOR DIALYSIS PATIENTS. POCT-GLUCOSE [id number] 22:55:00 Test Item Value Reference Range Comments POC-GLUCOSE METER (BEAKER) 325 mg/dL 70-110 Notified MELLISA GATES/TESTED AT [facility] (test hwlj=3554) [facility] [address] POCT-GLUCOSE [id number] 19:37:00 Test Item Value Reference Range Comments POC-GLUCOSE METER (BEAKER) 246 mg/dL 70-110 TESTED AT [place] [address] [facility] (test kbhe=1131) [facility] [address] RAD, CHEST, 1 VIEW, NON [id number] 18:59:00Reason for exam:->PICC line placementFINAL REPORT INDICATION: [...] MDReport Verified Date/Time: 08/06/2017 18:59:58 Reading Location: [address] Consult Reading Room 06: 59 PMPOCT-GLUCOSE [id number] 17:33:00 Test Item Value Reference Range Comments POC-GLUCOSE METER (BEAKER) 274 mg/dL 70-110 TESTED AT [address] (test pbzv=9039) [facility] [address] POCT-GLUCOSE [id number] 17:12:00 Test Item Value Reference Range Comments POC-GLUCOSE METER (BEAKER) 223 mg/dL 70-110 TESTED AT [address] (test liod=6393) [facility] [address] B-TYPE NATRIURETIC FACTOR (BNP)2017-08-06 15:08:00 Test Item Value Reference Range Comments B-TYPE NATRIURETIC PEPTIDE (BEAKER) (test 2043 pg/mL 0-100 izqw=309) [id number] 15:00:00 Test Item Value Reference Range Comments POTASSIUM (BEAKER) (test vqvn=184) 3.9 meq/L 3.5-5.1 8 hours after PO replacement completedPOCT-GLUCOSE [id number] 14:03:00 Test Item Value Reference Range Comments POC-GLUCOSE METER (BEAKER) 347 mg/dL 70-110 Notified MELLISA GATES/TESTED AT [facility] (test sovg=2182) [address] [place] [address] POCT-GLUCOSE [id number] 13:08:00 Test Item Value Reference Range Comments POC-GLUCOSE METER (BEAKER) 359 mg/dL 70-110 Notified MELLISA GATES/TESTED AT [facility] (test xcha=1437) [address] [place] [address] RAD, CHEST, 1 VIEW, NON [id number] 11:39:00Reason for exam:->acute pulmonary edema, aggressive diuresis [...] Peck Verified Date/Time: 08/06/2017 11:39:35 Reading Location: [facility] Radiology Reading Room Electronically signed by: HERMELINDO PECK M.D. on 08/06 11:39 AMPOCT-GLUCOSE [id number] 11:21:00 Test Item Value Reference Range Comments POC-GLUCOSE METER (BEAKER) 368 mg/dL 70-110 TESTED AT [address] (test sefv=4420) [place] [address] POCT-GLUCOSE [id number] 09:31:00 Test Item Value Reference Range Comments POC-GLUCOSE METER (BEAKER) 270 mg/dL 70-110 TESTED AT [address] (test zlcv=7626) [place] [address] [id number] 08:45:00 Test Item Value Reference Range Comments PARTIAL THROMBOPLASTIN TIME (BEAKER) (test 45.7 seconds 22.5-36.0 ifai=113) POCT-GLUCOSE [id number] 08:26:00 Test Item Value Reference Range Comments POC-GLUCOSE METER (BEAKER) 200 mg/dL 70-110 TESTED AT [address] (test ihhz=1421) [place] [address] (MANUAL DIFFERENTIAL)2017-08-06 08:22:00 Test Item Value Reference Range Comments NEUTROPHILS - REL (DIFF) (BEAKER) (test 69 % vfdy=3359) LYMPHOCYTES - REL (DIFF) (BEAKER) (test 16 % wmlt=0694) MONOCYTES - REL (DIFF) (BEAKER) (test vizc=3138) 7 % EOSINOPHILS - REL (DIFF) (BEAKER) (test 2 % gwid=3253) METAMYELOCYTES-REL (DIFF) (BEAKER) (test 1 % 0-0 hqhu=249) MYELOCYTES-REL (DIFF) (BEAKER) (test jciu=9815) 3 % 0-0 BANDS - REL (DIFF) (BEAKER) (test muzz=0455) 2 % 0-10 NEUTROPHILS - ABS (DIFF) (BEAKER) (test 6.97 K/ L 1.80-8.00 rcaj=6047) LYMPHOCYTES - ABS (DIFF) (BEAKER) (test 1.62 K/ L 1.48-4.50 ofka=0324) MONOCYTES - ABS (DIFF) (BEAKER) (test jbhi=3574) 0.71 K/ L 0.00-1.30 EOSINOPHILS - ABS (DIFF) (BEAKER) (test 0.20 K/ L 0.00-0.50 mqxt=4889) METAMYELOCTYES - ABS (DIFF) (BEAKER) (test 0.10 K/ L 0.00-0.00 bpiu=634) BANDS-ABS (DIFF) (BEAKER) (test jxzs=9270) 0.2 K/ L 0.0-0.8 MYELOCYTES-ABS (DIFF) (BEAKER) (test kffs=6494) 0.30 K/ L 0.00-0.00 TOTAL COUNTED (BEAKER) (test trsj=3133) 100 BANDS + SEGMENTED NEUTROPHILS (BEAKER) (test 7.17 brtf=5036) MANUAL NRBC PER 100 CELLS (BEAKER) (test 1 /100 WBC 0-0 urea=4928) WBC MORPHOLOGY (BEAKER) (test xbyq=656) Normal PLT MORPHOLOGY (BEAKER) (test ddzb=739) Normal ANISOCYTOSIS (BEAKER) (test muys=817) 1+ few POLYCHROMATOPHILLIC RBCS(BEAKER) (test ukak=639) 1+ few CBC W/PLT COUNT & AUTO [id number] 08:18:00 Test Item Value Reference Range Comments WHITE BLOOD CELL COUNT (BEAKER) (test yxgk=527) 10.1 K/ L 3.5-10.5 RED BLOOD CELL COUNT (BEAKER) (test wppj=901) 2.96 M/ L 4.63-6.08 HEMOGLOBIN (BEAKER) (test qbcl=893) 8.8 GM/DL 13.7-17.5 HEMATOCRIT (BEAKER) (test wocj=875) 25.9 % 40.1-51.0 MEAN CORPUSCULAR VOLUME (BEAKER) (test ibef=946) 87.5 fL 79.0-92.2 MEAN CORPUSCULAR HEMOGLOBIN (BEAKER) (test 29.7 pg 25.7-32.2 ceyr=883) MEAN CORPUSCULAR HEMOGLOBIN CONC (BEAKER) (test 34.0 GM/DL 32.3-36.5 tnsp=204) RED CELL DISTRIBUTION WIDTH (BEAKER) (test 12.8 % 11.6-14.4 nunr=909) PLATELET COUNT (BEAKER) (test lgmm=478) 180 K/CU MM 150-450 MEAN PLATELET VOLUME (BEAKER) (test yeby=382) 11.1 fL 9.4-12.4 NUCLEATED RED BLOOD CELLS (BEAKER) (test 0 /100 WBC 0-0 curc=843) IMMATURE GRANULOCYTES-RELATIVE PERCENT (BEAKER) 8 % 0-1 (test xylo=0194) [id number] 06:55:00 Test Item Value Reference Range Comments PARTIAL THROMBOPLASTIN TIME (BEAKER) (test 110.4 seconds 22.5-36.0 eoco=421) POCT-GLUCOSE [id number] 06:13:00 Test Item Value Reference Range Comments POC-GLUCOSE METER (BEAKER) 116 mg/dL 70-110 TESTED AT [address] (test vejt=3340) [facility] [address] POCT-GLUCOSE [id number] 05:14:00 Test Item Value Reference Range Comments POC-GLUCOSE METER (BEAKER) 97 mg/dL 70-110 TESTED AT [address] (test czxq=7945) [facility] [address] POCT-GLUCOSE [id number] 04:45:00 Test Item Value Reference Range Comments POC-GLUCOSE METER (BEAKER) 84 mg/dL 70-110 TESTED AT [address] (test rlww=6762) [facility] [address] HEPATITIS PANEL, [id number] 04:24:00 Test Item Value Reference Range Comments HEPATITIS A IGM ANTIBODY (BEAKER) (test Nonreactive Nonreactive sfvj=308) HEPATITIS B CORE IGM ANTIBODY (BEAKER) (test Nonreactive Nonreactive fmig=892) HEPATITIS C ANTIBODY (BEAKER) (test vken=185) Nonreactive Nonreactive HEPATITIS B SURFACE ANTIGEN (2) (BEAKER) (test Nonreactive Nonreactive imnp=1059) BASIC METABOLIC [id number] 04:02:00 Test Item Value Reference Range Comments SODIUM (BEAKER) (test 134 meq/L 136-145 nmyu=633) POTASSIUM (BEAKER) (test 3.5 meq/L 3.5-5.1 ocwj=889) CHLORIDE (BEAKER) (test 95 meq/L 98-107 aqzq=616) CO2 (BEAKER) (test 30 meq/L 22-29 vuwy=546) BLOOD UREA NITROGEN 38 mg/dL 7-21 (BEAKER) (test ewli=599) CREATININE (BEAKER) (test 1.41 mg/dL 0.57-1.25 yejl=396) GLUCOSE RANDOM (BEAKER) 89 mg/dL 70-105 (test uzqo=391) CALCIUM (BEAKER) (test 7.6 mg/dL 8.4-10.2 jvqt=950) EGFR (BEAKER) (test 52 mL/min/1.73 sq m ESTIMATED GFR IS NOT koqi=2732) ACCURATE CREATININE CLEARANCE IN PREDICTING GLOMERULAR FILTRATION RATE. ESTIMATED GFR IS NOT APPLICABLE FOR DIALYSIS PATIENTS. [id number] 04:00:00 Test Item Value Reference Range Comments PHOSPHORUS (BEAKER) (test camm=463) 3.0 mg/dL 2.3-4.7 [id number] 04:00:00 Test Item Value Reference Range Comments MAGNESIUM (BEAKER) (test cwap=692) 2.1 mg/dL 1.6-2.6 LACTIC ACID, VENOUS, WHOLE [id number] 03:59:00 Test Item Value Reference Range Comments LACTATE BLOOD VENOUS (2) (BEAKER) (test 0.9 mmol/L 0.5-2.2 lroe=9552) Effective 03/21/2016: Units/Reference Range ChangeNew: 0.5-2.2 mmol/L Previous: 5 -20 mg/dLOXYGEN SATURATION, [id number] 03:47:00 Test Item Value Reference Range Comments O2 SATURATION (MEASURED) (BEAKER) (test aanm=7917) 59.5 % Mixed venous from central line.POCT-GLUCOSE [id number] 03:16:00 Test Item Value Reference Range Comments POC-GLUCOSE METER (BEAKER) 112 mg/dL 70-110 TESTED AT [address] (test abtl=2658) [facility] [address] POCT-GLUCOSE [id number] 02:12:00 Test Item Value Reference Range Comments POC-GLUCOSE METER (BEAKER) 121 mg/dL 70-110 TESTED AT [address] (test lvzz=6157) [facility] [address] POCT-GLUCOSE [id number] 01:16:00 Test Item Value Reference Range Comments POC-GLUCOSE METER (BEAKER) 141 mg/dL 70-110 TESTED AT [address] (test kgfe=0856) [facility] [address] POCT-GLUCOSE [id number] 00:01:00 Test Item Value Reference Range Comments POC-GLUCOSE METER (BEAKER) 198 mg/dL 70-110 TESTED AT [address] (test qfmu=9726) [facility] [address] BASIC METABOLIC [id number] 23:14:00 Test Item Value Reference Range Comments SODIUM (BEAKER) (test 129 meq/L 136-145 lydh=064) POTASSIUM (BEAKER) (test 3.7 meq/L 3.5-5.1 iejp=764) CHLORIDE (BEAKER) (test 93 meq/L 98-107 vfic=229) CO2 (BEAKER) (test 26 meq/L 22-29 lzbf=568) BLOOD UREA NITROGEN 40 mg/dL 7-21 (BEAKER) (test rini=078) CREATININE (BEAKER) (test 1.47 mg/dL 0.57-1.25 yzad=931) GLUCOSE RANDOM (BEAKER) 181 mg/dL 70-105 (test axgj=338) CALCIUM (BEAKER) (test 7.2 mg/dL 8.4-10.2 uhfe=582) EGFR (BEAKER) (test 49 mL/min/1.73 sq m ESTIMATED GFR IS NOT kekw=4218) ACCURATE CREATININE CLEARANCE IN PREDICTING GLOMERULAR FILTRATION RATE. ESTIMATED GFR IS NOT APPLICABLE FOR DIALYSIS PATIENTS. 8 hours after PO replacement [id number] 23:13:00 Test Item Value Reference Range Comments POTASSIUM (BEAKER) (test srte=752) 3.7 meq/L 3.5-5.1 8 hours after PO replacement completedOXYGEN SATURATION, [id number] 22: 50:00 Test Item Value Reference Range Comments O2 SATURATION (MEASURED) (BEAKER) (test uset=7479) 51.9 % POCT-GLUCOSE [id number] 22:20:00 Test Item Value Reference Range Comments POC-GLUCOSE METER (BEAKER) 220 mg/dL 70-110 TESTED AT [address] (test okmc=9427) [place] [address] [id number] 21:20:00 Test Item Value Reference Range Comments PARTIAL THROMBOPLASTIN TIME (BEAKER) (test 62.2 seconds 22.5-36.0 jytw=622) POCT-GLUCOSE [id number] 20:47:00 Test Item Value Reference Range Comments POC-GLUCOSE METER (BEAKER) 209 mg/dL 70-110 TESTED AT [address] (test gumv=2196) [place] [address] POCT-GLUCOSE [id number] 19:51:00 Test Item Value Reference Range Comments POC-GLUCOSE METER (BEAKER) 176 mg/dL 70-110 TESTED AT [address] (test xeol=1887) [place] [address] [id number] 18:54:00 Test Item Value Reference Range Comments POTASSIUM (BEAKER) (test dgqa=832) 3.4 meq/L 3.5-5.1 8 hours after PO replacement completedPOCT-GLUCOSE [id number] 18:50:00 Test Item Value Reference Range Comments POC-GLUCOSE METER (BEAKER) 112 mg/dL 70-110 TESTED AT [address] (test iypa=9779) [place] [address] [id number] 18:34:00 Test Item Value Reference Range Comments PARTIAL THROMBOPLASTIN TIME (BEAKER) (test 48.2 seconds 22.5-36.0 kmcz=629) POCT-GLUCOSE [id number] 18:20:00 Test Item Value Reference Range Comments POC-GLUCOSE METER (BEAKER) 48 mg/dL 70-110 Notified MELLISA GATES/TESTED AT [facility] (test srpm=3218) [address] [place] [id number] POCT-GLUCOSE [id number] 12:35:00 Test Item Value Reference Range Comments POC-GLUCOSE METER (BEAKER) 117 mg/dL 70-110 TESTED AT [address] (test lobw=2279) [place] [id number] POCT-GLUCOSE [id number] 11:58:00 Test Item Value Reference Range Comments POC-GLUCOSE METER (BEAKER) 166 mg/dL 70-110 TESTED AT [address] (test odoo=4528) [place] [id number] POCT-GLUCOSE [id number] 11:58:00 Test Item Value Reference Range Comments POC-GLUCOSE METER (BEAKER) 197 mg/dL 70-110 TESTED AT [address] (test rwst=5923) [place] [id number] BASIC METABOLIC [id number] 10:33:00 Test Item Value Reference Range Comments SODIUM (BEAKER) (test 130 meq/L 136-145 gwwp=721) POTASSIUM (BEAKER) (test 3.7 meq/L 3.5-5.1 krpn=974) CHLORIDE (BEAKER) (test 91 meq/L 98-107 ejro=062) CO2 (BEAKER) (test 32 meq/L 22-29 tpsr=090) BLOOD UREA NITROGEN 43 mg/dL 7-21 (BEAKER) (test vyzz=170) CREATININE (BEAKER) (test 1.61 mg/dL 0.57-1.25 xscl=318) GLUCOSE RANDOM (BEAKER) 168 mg/dL 70-105 (test bvdu=066) CALCIUM (BEAKER) (test 7.5 mg/dL 8.4-10.2 ztid=731) EGFR (BEAKER) (test 44 mL/min/1.73 sq m ESTIMATED GFR IS NOT ocma=0253) ACCURATE CREATININE CLEARANCE IN PREDICTING GLOMERULAR FILTRATION RATE. ESTIMATED GFR IS NOT APPLICABLE FOR DIALYSIS PATIENTS. POCT-GLUCOSE [id number] 09:38:00 Test Item Value Reference Range Comments POC-GLUCOSE METER (BEAKER) 198 mg/dL 70-110 TESTED AT [address] (test olij=9343) [facility] [address] POCT-GLUCOSE [id number] 08:49:00 Test Item Value Reference Range Comments POC-GLUCOSE METER (BEAKER) 230 mg/dL 70-110 TESTED AT [facility] [address] (test ijwo=1995) [facility] [address] RAD, CHEST, 1 VIEW, NON [id number] 07:44:00Reason for exam:-> hypoxemiaShould this be performed at the bedside?->YesFINAL REPORT Chest one view compared to August 04 Discussion: There is bilateral pulmonary congestion with probable bilateral atelectasis. No gross effusion or pneumothorax. IMPRESSIONS: No change Signed: Jaida Terrazas Verified Date/Time: 08/05/2017 07:44:47 Reading Location: [facility] Radiology Reading Room Electronically signed by: JAIDA TERRAZAS M.D. on 07:44 AMCBC W/PLT COUNT & AUTO [id number] 07:22:00 Test Item Value Reference Range Comments WHITE BLOOD CELL COUNT (BEAKER) (test rfpr=447) 11.1 K/ L 3.5-10.5 RED BLOOD CELL COUNT (BEAKER) (test qezn=684) 3.03 M/ L 4.63-6.08 HEMOGLOBIN (BEAKER) (test mnsh=467) 9.1 GM/DL 13.7-17.5 HEMATOCRIT (BEAKER) (test aurq=145) 26.4 % 40.1-51.0 MEAN CORPUSCULAR VOLUME (BEAKER) (test sykg=916) 87.1 fL 79.0-92.2 MEAN CORPUSCULAR HEMOGLOBIN (BEAKER) (test 30.0 pg 25.7-32.2 mtes=454) MEAN CORPUSCULAR HEMOGLOBIN CONC (BEAKER) (test 34.5 GM/DL 32.3-36.5 emjv=585) RED CELL DISTRIBUTION WIDTH (BEAKER) (test 12.6 % 11.6-14.4 kizv=946) PLATELET COUNT (BEAKER) (test tibm=768) 195 K/CU MM 150-450 MEAN PLATELET VOLUME (BEAKER) (test oybq=038) 11.6 fL 9.4-12.4 NUCLEATED RED BLOOD CELLS (BEAKER) (test 1 /100 WBC 0-0 rfjn=757) IMMATURE GRANULOCYTES-RELATIVE PERCENT (BEAKER) 8 % 0-1 (test ustj=3104) (MANUAL DIFFERENTIAL)2017-08-05 07:22:00 Test Item Value Reference Range Comments NEUTROPHILS - REL (DIFF) (BEAKER) (test 64 % jfgc=9586) LYMPHOCYTES - REL (DIFF) (BEAKER) (test 15 % xiun=4008) MONOCYTES - REL (DIFF) (BEAKER) (test miqk=1531) 2 % EOSINOPHILS - REL (DIFF) (BEAKER) (test 1 % kvfp=5973) METAMYELOCYTES-REL (DIFF) (BEAKER) (test 2 % 0-0 wkbn=845) BANDS - REL (DIFF) (BEAKER) (test rtgs=6675) 16 % 0-10 NEUTROPHILS - ABS (DIFF) (BEAKER) (test 7.10 K/ L 1.80-8.00 fywp=0582) LYMPHOCYTES - ABS (DIFF) (BEAKER) (test 1.67 K/ L 1.48-4.50 cvhz=3806) MONOCYTES - ABS (DIFF) (BEAKER) (test ruvi=4688) 0.22 K/ L 0.00-1.30 EOSINOPHILS - ABS (DIFF) (BEAKER) (test 0.11 K/ L 0.00-0.50 plnb=9766) METAMYELOCTYES - ABS (DIFF) (BEAKER) (test 0.22 K/ L 0.00-0.00 nflc=364) BANDS-ABS (DIFF) (BEAKER) (test sxfc=6838) 1.8 K/ L 0.0-0.8 TOTAL COUNTED (BEAKER) (test ebcg=1117) 100 BANDS + SEGMENTED NEUTROPHILS (BEAKER) (test 8.88 xfth=1886) MANUAL NRBC PER 100 CELLS (BEAKER) (test 2 /100 WBC 0-0 ctud=0586) WBC MORPHOLOGY (BEAKER) (test yxim=422) Normal PLT MORPHOLOGY (BEAKER) (test cjbr=356) Normal ANISOCYTOSIS (BEAKER) (test dnex=564) 1+ few POLYCHROMATOPHILLIC RBCS(BEAKER) (test psch=108) 1+ few POCT-GLUCOSE [id number] 06:05:00 Test Item Value Reference Range Comments POC-GLUCOSE METER (BEAKER) 256 mg/dL 70-110 TESTED AT [facility] [address] [facility] (test maeq=7453) [facility] [address] BASIC METABOLIC [id number] 04:34:00 Test Item Value Reference Range Comments SODIUM (BEAKER) (test 128 meq/L 136-145 vbbf=565) POTASSIUM (BEAKER) (test 4.2 meq/L 3.5-5.1 vhrj=435) CHLORIDE (BEAKER) (test 91 meq/L 98-107 uqfe=689) CO2 (BEAKER) (test 28 meq/L 22-29 yfks=939) BLOOD UREA NITROGEN 47 mg/dL 7-21 (BEAKER) (test udze=519) CREATININE (BEAKER) (test 1.71 mg/dL 0.57-1.25 kgll=980) GLUCOSE RANDOM (BEAKER) 245 mg/dL 70-105 (test hwgn=196) CALCIUM (BEAKER) (test 7.2 mg/dL 8.4-10.2 pluc=182) EGFR (BEAKER) (test 41 mL/min/1.73 sq m ESTIMATED GFR IS NOT llux=1606) ACCURATE CREATININE CLEARANCE IN PREDICTING GLOMERULAR FILTRATION RATE. ESTIMATED GFR IS NOT APPLICABLE FOR DIALYSIS PATIENTS. [id number] 04:33:00 Test Item Value Reference Range Comments PHOSPHORUS (BEAKER) (test cjro=265) 3.3 mg/dL 2.3-4.7 [id number] 04:33:00 Test Item Value Reference Range Comments MAGNESIUM (BEAKER) (test uurz=359) 2.1 mg/dL 1.6-2.6 HEPATIC FUNCTION [id number] 04:33:00 Test Item Value Reference Range Comments TOTAL PROTEIN (BEAKER) (test jyet=882) 5.3 gm/dL 6.0-8.3 ALBUMIN (BEAKER) (test pdkk=8394) 2.7 g/dL 3.5-5.0 BILIRUBIN TOTAL (BEAKER) (test vigx=953) 1.1 mg/dL 0.2-1.2 BILIRUBIN DIRECT (BEAKER) (test nisj=820) 0.5 mg/dL 0.1-0.5 ALKALINE PHOSPHATASE (BEAKER) (test ugep=755) 74 U/L 40-150 AST (SGOT) (BEAKER) (test aczo=791) 223 U/L 5-34 ALT (SGPT) (BEAKER) (test umrp=016) 933 U/L 6-55 LACTIC ACID, ARTERIAL, WHOLE [id number] 04:24:00 Test Item Value Reference Range Comments LACTATE BLOOD ARTERIAL (2) (BEAKER) (test 1.6 mmol/L 0.5-2.2 yfhz=0113) Effective 03/21/2016: Units/Reference Range ChangeNew: 0.5-2.2 mmol/L Previous: 5 -20 mg/[id number] 04:23:00 Test Item Value Reference Range Comments PARTIAL THROMBOPLASTIN TIME (BEAKER) (test 79.3 seconds 22.5-36.0 cesa=009) OXYGEN SATURATION, [id number] 04:16:00 Test Item Value Reference Range Comments O2 SATURATION (MEASURED) ([facility]) (test rvjh=5488) 58.7 % Mixed venous from central line.POCT-GLUCOSE [id number] 03:03:00 Test Item Value Reference Range Comments POC-GLUCOSE METER (BEAKER) 260 mg/dL 70-110 TESTED AT [address] (test dkzb=5065) [place] [id number] POCT-GLUCOSE [id number] 00:11:00 Test Item Value Reference Range Comments POC-GLUCOSE METER (BEAKER) 92 mg/dL 70-110 TESTED AT [address] (test pfwz=2083) [facility] [address] POCT-GLUCOSE [id number] 23:46:00 Test Item Value Reference Range Comments POC-GLUCOSE METER (BEAKER) 91 mg/dL 70-110 TESTED AT [address] (test ezte=3614) [facility] [address] POCT-GLUCOSE [id number] 22:52:00 Test Item Value Reference Range Comments POC-GLUCOSE METER (BEAKER) 124 mg/dL 70-110 TESTED AT [address] (test qnzi=8203) [facility] [address] [id number] 21:57:00 Test Item Value Reference Range Comments POTASSIUM (BEAKER) (test qqel=562) 3.5 meq/L 3.5-5.1 8 hours after PO replacement [id number] 21:57:00 Test Item Value Reference Range Comments MAGNESIUM (BEAKER) (test sxyj=084) 2.4 mg/dL 1.6-2.6 8 hours after PO replacement completedPOCT-GLUCOSE [id number] 21:18:00 Test Item Value Reference Range Comments POC-GLUCOSE METER (BEAKER) 194 mg/dL 70-110 TESTED AT [address] (test kzlm=1264) [place] [address] BASIC METABOLIC [id number] 17:29:00 Test Item Value Reference Range Comments SODIUM (BEAKER) (test 130 meq/L 136-145 dxhs=405) POTASSIUM (BEAKER) (test 3.3 meq/L 3.5-5.1 rqwf=062) CHLORIDE (BEAKER) (test 90 meq/L 98-107 rvsn=708) CO2 (BEAKER) (test 31 meq/L 22-29 kzua=689) BLOOD UREA NITROGEN 48 mg/dL 7-21 (BEAKER) (test xqel=574) CREATININE (BEAKER) (test 1.70 mg/dL 0.57-1.25 pzmy=939) GLUCOSE RANDOM (BEAKER) 181 mg/dL 70-105 (test zcyw=953) CALCIUM (BEAKER) (test 7.5 mg/dL 8.4-10.2 krxc=667) EGFR (BEAKER) (test 42 mL/min/1.73 sq m ESTIMATED GFR IS NOT pwco=8109) ACCURATE CREATININE CLEARANCE IN PREDICTING GLOMERULAR FILTRATION RATE. ESTIMATED GFR IS NOT APPLICABLE FOR DIALYSIS PATIENTS. [id number] 17:18:00 Test Item Value Reference Range Comments PARTIAL THROMBOPLASTIN TIME (BEAKER) (test 73.0 seconds 22.5-36.0 yvso=494) POCT-GLUCOSE [id number] 15:11:00 Test Item Value Reference Range Comments POC-GLUCOSE METER (BEAKER) 194 mg/dL 70-110 TESTED AT [address] (test ofhv=5416) [place] [address] LACTIC ACID, ARTERIAL, WHOLE [id number] 13:23:00 Test Item Value Reference Range Comments LACTATE BLOOD ARTERIAL (2) (BEAKER) (test 1.0 mmol/L 0.5-2.2 fqyp=2056) Effective 03/21/2016: Units/Reference Range ChangeNew: 0.5-2.2 mmol/L Previous: 5 -20 mg/dLPOCT-GLUCOSE [id number] 12:41:00 Test Item Value Reference Range Comments POC-GLUCOSE METER (BEAKER) 236 mg/dL 70-110 TESTED AT [address] (test eabb=8342) [facility] [address] OXYGEN SATURATION, [id number] 12:31:00 Test Item Value Reference Range Comments O2 SATURATION (MEASURED) (BEAKER) (test jups=9222) 55.9 % Mixed venous from central line.[id number] 10:03:00 Test Item Value Reference Range Comments POTASSIUM (BEAKER) (test ueqz=839) 3.2 meq/L 3.5-5.1 Check Serum Potassium level 2 hours after oral potassium replacement completed or 30 min after intravenous potassium replacement.POCT-GLUCOSE [id number] 09:23:00 Test Item Value Reference Range Comments POC-GLUCOSE METER (BEAKER) 150 mg/dL 70-110 TESTED AT [address] (test emcl=1099) [facility] [address] RAD, CHEST, 1 VIEW, NON [id number] 09:18:00Reason for exam:-> hypoxemiaShould this be performed [...] James Verified Date/Time: 08/04/2017 09:18:42 Reading Location: [facility] C013X [facility] Consult Reading Room [id number] 06:56:00 Test Item Value Reference Range Comments PARTIAL THROMBOPLASTIN TIME (BEAKER) (test 76.8 seconds 22.5-36.0 crib=497) POCT-GLUCOSE [id number] 06:18:00 Test Item Value Reference Range Comments POC-GLUCOSE METER (BEAKER) 118 mg/dL 70-110 TESTED AT [facility] [address] (test vvqa=5188) [place] [address] (MANUAL DIFFERENTIAL)2017-08-04 05:23:00 Test Item Value Reference Range Comments NEUTROPHILS - REL (DIFF) (BEAKER) (test ifnn=6061) 74 % LYMPHOCYTES - REL (DIFF) (BEAKER) (test nxqp=9957) 7 % MONOCYTES - REL (DIFF) (BEAKER) (test xmld=8413) 6 % EOSINOPHILS - REL (DIFF) (BEAKER) (test xwza=0148) 2 % METAMYELOCYTES-REL (DIFF) (BEAKER) (test eeaz=326) 4 % 0-0 MYELOCYTES-REL (DIFF) (BEAKER) (test vdqp=6861) 4 % 0-0 BANDS - REL (DIFF) (BEAKER) (test adci=0560) 3 % 0-10 NEUTROPHILS - ABS (DIFF) (BEAKER) (test jmmh=2102) 9.40 K/ L 1.80-8.00 LYMPHOCYTES - ABS (DIFF) (BEAKER) (test comp=3779) 0.89 K/ L 1.48-4.50 MONOCYTES - ABS (DIFF) (BEAKER) (test zcoz=4800) 0.76 K/ L 0.00-1.30 EOSINOPHILS - ABS (DIFF) (BEAKER) (test ncka=3059) 0.25 K/ L 0.00-0.50 METAMYELOCTYES - ABS (DIFF) (BEAKER) (test 0.51 K/ L 0.00-0.00 iwfd=755) BANDS-ABS (DIFF) (BEAKER) (test rsiz=8814) 0.4 K/ L 0.0-0.8 MYELOCYTES-ABS (DIFF) (BEAKER) (test gmtg=5676) 0.51 K/ L 0.00-0.00 TOTAL COUNTED (BEAKER) (test vfxx=0081) 100 BANDS + SEGMENTED NEUTROPHILS (BEAKER) (test 9.78 oqxo=3412) WBC MORPHOLOGY (BEAKER) (test zayc=582) Normal PLT MORPHOLOGY (BEAKER) (test cion=997) Normal POIKILOCYTES (BEAKER) (test yytf=542) 1+ few CBC W/PLT COUNT & AUTO [id number] 05:22:00 Test Item Value Reference Range Comments WHITE BLOOD CELL COUNT (BEAKER) (test mrqr=976) 12.7 K/ L 3.5-10.5 RED BLOOD CELL COUNT (BEAKER) (test dumi=656) 3.04 M/ L 4.63-6.08 HEMOGLOBIN (BEAKER) (test tasn=977) 9.1 GM/DL 13.7-17.5 HEMATOCRIT (BEAKER) (test ydiq=724) 26.6 % 40.1-51.0 MEAN CORPUSCULAR VOLUME (BEAKER) (test hvbg=538) 87.5 fL 79.0-92.2 MEAN CORPUSCULAR HEMOGLOBIN (BEAKER) (test 29.9 pg 25.7-32.2 iwlk=025) MEAN CORPUSCULAR HEMOGLOBIN CONC (BEAKER) (test 34.2 GM/DL 32.3-36.5 reog=929) RED CELL DISTRIBUTION WIDTH (BEAKER) (test 12.4 % 11.6-14.4 abwm=772) PLATELET COUNT (BEAKER) (test jowq=113) 195 K/CU MM 150-450 MEAN PLATELET VOLUME (BEAKER) (test hypr=573) 11.4 fL 9.4-12.4 NUCLEATED RED BLOOD CELLS (BEAKER) (test 2 /100 WBC 0-0 dwdd=234) IMMATURE GRANULOCYTES-RELATIVE PERCENT (BEAKER) 9 % 0-1 (test jvrr=1947) BASIC METABOLIC [id number] 05:19:00 Test Item Value Reference Range Comments SODIUM (BEAKER) (test 132 meq/L 136-145 ufbg=372) POTASSIUM (BEAKER) (test 3.1 meq/L 3.5-5.1 abce=335) CHLORIDE (BEAKER) (test 96 meq/L 98-107 tkjr=628) CO2 (BEAKER) (test 25 meq/L 22-29 qzhv=242) BLOOD UREA NITROGEN 44 mg/dL 7-21 (BEAKER) (test rwys=136) CREATININE (BEAKER) (test 1.45 mg/dL 0.57-1.25 yzld=355) GLUCOSE RANDOM (BEAKER) 127 mg/dL 70-105 (test vcyj=424) CALCIUM (BEAKER) (test 7.1 mg/dL 8.4-10.2 tkac=743) EGFR (BEAKER) (test 50 mL/min/1.73 sq m ESTIMATED GFR IS NOT omvv=9240) ACCURATE CREATININE CLEARANCE IN PREDICTING GLOMERULAR FILTRATION RATE. ESTIMATED GFR IS NOT APPLICABLE FOR DIALYSIS PATIENTS. POCT-GLUCOSE [id number] 05:17:00 Test Item Value Reference Range Comments POC-GLUCOSE METER (BEAKER) 149 mg/dL 70-110 TESTED AT [address] (test iejo=8496) [facility] [address] [id number] 05:11:00 Test Item Value Reference Range Comments PHOSPHORUS (BEAKER) (test gqrc=163) 2.7 mg/dL 2.3-4.7 [id number] 05:11:00 Test Item Value Reference Range Comments MAGNESIUM (BEAKER) (test ftlj=993) 1.8 mg/dL 1.6-2.6 HEPATIC FUNCTION [id number] 05:11:00 Test Item Value Reference Range Comments TOTAL PROTEIN (BEAKER) (test qqrq=532) 5.3 gm/dL 6.0-8.3 ALBUMIN (BEAKER) (test hddy=7141) 2.7 g/dL 3.5-5.0 BILIRUBIN TOTAL (BEAKER) (test nvcz=007) 1.2 mg/dL 0.2-1.2 BILIRUBIN DIRECT (BEAKER) (test wlgx=722) 0.6 mg/dL 0.1-0.5 ALKALINE PHOSPHATASE (BEAKER) (test jmty=705) 78 U/L 40-150 AST (SGOT) (BEAKER) (test lbtn=199) 613 U/L 5-34 ALT (SGPT) (BEAKER) (test cjav=390) 1371 U/L 6-55 POCT-GLUCOSE [id number] 04:16:00 Test Item Value Reference Range Comments POC-GLUCOSE METER (BEAKER) 131 mg/dL 70-110 TESTED AT [address] (test zwhs=6900) [facility] [address] POCT-GLUCOSE [id number] 04:16:00 Test Item Value Reference Range Comments POC-GLUCOSE METER (BEAKER) 105 mg/dL 70-110 TESTED AT [address] (test tnia=6953) [place] [id number] POCT-GLUCOSE [id number] 02:38:00 Test Item Value Reference Range Comments POC-GLUCOSE METER (BEAKER) 90 mg/dL 70-110 TESTED AT [address] (test qbqx=1154) [place] [address] POCT-GLUCOSE [id number] 00:35:00 Test Item Value Reference Range Comments POC-GLUCOSE METER (BEAKER) 104 mg/dL 70-110 TESTED AT [address] (test rmbb=2481) [place] [address] POCT-GLUCOSE [id number] 23:46:00 Test Item Value Reference Range Comments POC-GLUCOSE METER (BEAKER) 126 mg/dL 70-110 TESTED AT [address] (test gser=0232) [place] [address] POCT-GLUCOSE [id number] 21:13:00 Test Item Value Reference Range Comments POC-GLUCOSE METER (BEAKER) 160 mg/dL 70-110 TESTED AT [address] (test xlfq=3722) [place] [address] [id number] 20:24:00 Test Item Value Reference Range Comments PARTIAL THROMBOPLASTIN TIME (BEAKER) (test 54.0 seconds 22.5-36.0 mwej=686) POCT-GLUCOSE [id number] 20:12:00 Test Item Value Reference Range Comments POC-GLUCOSE METER (BEAKER) 172 mg/dL 70-110 TESTED AT [address] (test xefa=2500) [place] [address] POCT-GLUCOSE [id number] 15:16:00 Test Item Value Reference Range Comments POC-GLUCOSE METER (BEAKER) 102 mg/dL 70-110 TESTED AT [address] (test onxq=3128) [place] [address] [id number] 12:48:00 Test Item Value Reference Range Comments PARTIAL THROMBOPLASTIN TIME (BEAKER) (test 46.2 seconds 22.5-36.0 tcmh=259) POCT-GLUCOSE [id number] 11:37:00 Test Item Value Reference Range Comments POC-GLUCOSE METER (BEAKER) 109 mg/dL 70-110 TESTED AT [facility] [address] (test tmyu=9328) [facility] [address] U/S, ABDOMINAL, [id number] 09:59:00Abdomen limited area? Add comment if clarification [...] MDReport Verified Date/Time: 08/03/2017 09:59:59 Reading Location: [address] Body Reading Room RAD, CHEST, 1 VIEW, NON [id number] 08:05:00Reason for exam:->hypoxemiaShould this be performed at [...] MDReport Verified Date/Time: 08/03 08:05:10 Reading Location: [facility] C013V Neuro Reading Room CBC W/ PLT COUNT & AUTO [id number] 06:41:00 Test Item Value Reference Range Comments WHITE BLOOD CELL COUNT (BEAKER) (test zahc=337) 11.9 K/ L 3.5-10.5 RED BLOOD CELL COUNT (BEAKER) (test todq=097) 2.99 M/ L 4.63-6.08 HEMOGLOBIN (BEAKER) (test yqrw=450) 9.1 GM/DL 13.7-17.5 HEMATOCRIT (BEAKER) (test lagv=084) 26.2 % 40.1-51.0 MEAN CORPUSCULAR VOLUME (BEAKER) (test getg=254) 87.6 fL 79.0-92.2 MEAN CORPUSCULAR HEMOGLOBIN (BEAKER) (test 30.4 pg 25.7-32.2 wnaj=937) MEAN CORPUSCULAR HEMOGLOBIN CONC (BEAKER) (test 34.7 GM/DL 32.3-36.5 cabg=084) RED CELL DISTRIBUTION WIDTH (BEAKER) (test 12.3 % 11.6-14.4 brtj=963) PLATELET COUNT (BEAKER) (test lfef=905) 161 K/CU MM 150-450 MEAN PLATELET VOLUME (BEAKER) (test xnur=718) 11.6 fL 9.4-12.4 NUCLEATED RED BLOOD CELLS (BEAKER) (test 1 /100 WBC 0-0 elmd=646) IMMATURE GRANULOCYTES-RELATIVE PERCENT (BEAKER) 5 % 0-1 (test gtwy=7048) (MANUAL DIFFERENTIAL)2017-08-03 06:41:00 Test Item Value Reference Range Comments NEUTROPHILS - REL (DIFF) (BEAKER) (test 84 % hpge=7326) LYMPHOCYTES - REL (DIFF) (BEAKER) (test 5 % eovp=3087) MONOCYTES - REL (DIFF) (BEAKER) (test yols=3780) 3 % EOSINOPHILS - REL (DIFF) (BEAKER) (test 1 % lcik=9958) METAMYELOCYTES-REL (DIFF) (BEAKER) (test 2 % 0-0 slck=851) MYELOCYTES-REL (DIFF) (BEAKER) (test htem=1544) 1 % 0-0 BANDS - REL (DIFF) (BEAKER) (test nbmg=8239) 4 % 0-10 NEUTROPHILS - ABS (DIFF) (BEAKER) (test 10.00 K/ L 1.80-8.00 pqpo=5041) LYMPHOCYTES - ABS (DIFF) (BEAKER) (test 0.60 K/ L 1.48-4.50 yizp=1125) MONOCYTES - ABS (DIFF) (BEAKER) (test dwdf=3491) 0.36 K/ L 0.00-1.30 EOSINOPHILS - ABS (DIFF) (BEAKER) (test 0.12 K/ L 0.00-0.50 navb=5109) METAMYELOCTYES - ABS (DIFF) (BEAKER) (test 0.24 K/ L 0.00-0.00 frui=598) BANDS-ABS (DIFF) (BEAKER) (test yhyg=2608) 0.5 K/ L 0.0-0.8 MYELOCYTES-ABS (DIFF) (BEAKER) (test zmht=7322) 0.12 K/ L 0.00-0.00 TOTAL COUNTED (BEAKER) (test yapj=4412) 100 BANDS + SEGMENTED NEUTROPHILS (BEAKER) (test 10.47 yiom=5560) MANUAL NRBC PER 100 CELLS (BEAKER) (test 1 /100 WBC 0-0 kqei=0577) WBC MORPHOLOGY (BEAKER) (test zczk=256) Normal PLT MORPHOLOGY (BEAKER) (test wrvp=579) Normal RBC MORPHOLOGY (BEAKER) (test wfwx=397) Normal POCT-GLUCOSE [id number] 06:13:00 Test Item Value Reference Range Comments POC-GLUCOSE METER (BEAKER) 133 mg/dL 70-110 TESTED AT [address] (test ujmc=2014) [facility] [address] POCT-GLUCOSE [id number] 06:13:00 Test Item Value Reference Range Comments POC-GLUCOSE METER (BEAKER) 143 mg/dL 70-110 TESTED AT [address] (test cvhs=3156) [facility] [address] POCT-GLUCOSE [id number] 06:13:00 Test Item Value Reference Range Comments POC-GLUCOSE METER (BEAKER) 136 mg/dL 70-110 TESTED AT [facility] [address] [facility] (test ajza=7346) [facility] [address] [id number] 05:47:00 Test Item Value Reference Range Comments PARTIAL THROMBOPLASTIN TIME (BEAKER) (test 37.5 seconds 22.5-36.0 mqch=879) [id number] 05:37:00 Test Item Value Reference Range Comments PHOSPHORUS (BEAKER) (test mbpu=213) 1.8 mg/dL 2.3-4.7 [id number] 05:37:00 Test Item Value Reference Range Comments MAGNESIUM (BEAKER) (test igsp=793) 2.1 mg/dL 1.6-2.6 BASIC METABOLIC [id number] 05:37:00 Test Item Value Reference Range Comments SODIUM (BEAKER) (test 133 meq/L 136-145 fnqq=942) POTASSIUM (BEAKER) (test 4.1 meq/L 3.5-5.1 nfxv=845) CHLORIDE (BEAKER) (test 96 meq/L 98-107 hcgg=404) CO2 (BEAKER) (test 27 meq/L 22-29 cgpx=167) BLOOD UREA NITROGEN 40 mg/dL 7-21 (BEAKER) (test yqbr=791) CREATININE (BEAKER) (test 1.15 mg/dL 0.57-1.25 rsam=266) GLUCOSE RANDOM (BEAKER) 134 mg/dL 70-105 (test lzbq=852) CALCIUM (BEAKER) (test 8.0 mg/dL 8.4-10.2 wgcd=539) EGFR (BEAKER) (test 65 mL/min/1.73 sq m ESTIMATED GFR IS NOT vctz=0235) ACCURATE CREATININE CLEARANCE IN PREDICTING GLOMERULAR FILTRATION RATE. ESTIMATED GFR IS NOT APPLICABLE FOR DIALYSIS PATIENTS. HEPATIC FUNCTION [id number] 05:37:00 Test Item Value Reference Range Comments TOTAL PROTEIN (BEAKER) (test oqjg=269) 5.6 gm/dL 6.0-8.3 ALBUMIN (BEAKER) (test hult=7071) 2.8 g/dL 3.5-5.0 BILIRUBIN TOTAL (BEAKER) (test nmxx=343) 1.1 mg/dL 0.2-1.2 BILIRUBIN DIRECT (BEAKER) (test pwcg=348) 0.6 mg/dL 0.1-0.5 ALKALINE PHOSPHATASE (BEAKER) (test xmfa=943) 86 U/L 40-150 AST (SGOT) (BEAKER) (test zzdg=185) 795 U/L 5-34 ALT (SGPT) (BEAKER) (test sbge=099) 1649 U/L 6-55 CREATINE KINASE (CK)2017-08-03 05:37:00 Test Item Value Reference Range Comments CREATINE KINASE TOTAL (BEAKER) (test raxu=579) 1216 U/L 29-200 OXYGEN SATURATION, [id number] 05:34:00 Test Item Value Reference Range Comments O2 SATURATION (MEASURED) (BEAKER) (test ifku=5860) 51.5 % POCT-GLUCOSE [id number] 01:44:00 Test Item Value Reference Range Comments POC-GLUCOSE METER (BEAKER) 101 mg/dL 70-110 TESTED AT [address] (test pstf=0630) [place] [id number] POCT-GLUCOSE [id number] 01:44:00 Test Item Value Reference Range Comments POC-GLUCOSE METER (BEAKER) 82 mg/dL 70-110 TESTED AT [address] (test puay=5268) [place] [id number] POCT-GLUCOSE [id number] 01:44:00 Test Item Value Reference Range Comments POC-GLUCOSE METER (BEAKER) 111 mg/dL 70-110 TESTED AT [address] (test hsen=9131) [place] [id number] POCT-GLUCOSE [id number] 01:44:00 Test Item Value Reference Range Comments POC-GLUCOSE METER (BEAKER) 129 mg/dL 70-110 TESTED AT [address] (test reyg=6388) [facility] [address] [id number] 23:10:00 Test Item Value Reference Range Comments PARTIAL THROMBOPLASTIN TIME (BEAKER) (test 32.3 seconds 22.5-36.0 xloj=599) POCT-GLUCOSE [id number] 22:53:00 Test Item Value Reference Range Comments POC-GLUCOSE METER (BEAKER) 152 mg/dL 70-110 TESTED AT [address] (test ybgf=2995) [facility] [address] OXYGEN SATURATION, [id number] 22:00:00 Test Item Value Reference Range Comments O2 SATURATION (MEASURED) (BEAKER) (test vhev=0432) 48.0 % BASIC METABOLIC [id number] 20:43:00 Test Item Value Reference Range Comments SODIUM (BEAKER) (test 132 meq/L 136-145 ndsc=620) POTASSIUM (BEAKER) (test 4.0 meq/L 3.5-5.1 wwgj=335) CHLORIDE (BEAKER) (test 97 meq/L 98-107 fxqq=968) CO2 (BEAKER) (test 24 meq/L 22-29 ffyu=712) BLOOD UREA NITROGEN 39 mg/dL 7-21 (BEAKER) (test tzwo=552) CREATININE (BEAKER) (test 1.14 mg/dL 0.57-1.25 hwwp=392) GLUCOSE RANDOM (BEAKER) 149 mg/dL 70-105 (test dxyl=944) CALCIUM (BEAKER) (test 7.8 mg/dL 8.4-10.2 pxil=122) EGFR (BEAKER) (test 66 mL/min/1.73 sq m ESTIMATED GFR IS NOT fvts=0425) ACCURATE CREATININE CLEARANCE IN PREDICTING GLOMERULAR FILTRATION RATE. ESTIMATED GFR IS NOT APPLICABLE FOR DIALYSIS PATIENTS. [id number] 20:38:00 Test Item Value Reference Range Comments MAGNESIUM (BEAKER) (test gssw=623) 2.0 mg/dL 1.6-2.6 POCT-GLUCOSE [id number] 20:10:00 Test Item Value Reference Range Comments POC-GLUCOSE METER (BEAKER) 159 mg/dL 70-110 TESTED AT [address] (test wzir=4735) [facility] [address] POCT-GLUCOSE [id number] 18:58:00 Test Item Value Reference Range Comments POC-GLUCOSE METER (BEAKER) 173 mg/dL 70-110 TESTED AT [address] (test yhni=5085) [facility] [address] [id number] 17:45:00 Test Item Value Reference Range Comments PARTIAL THROMBOPLASTIN TIME (BEAKER) (test 30.1 seconds 22.5-36.0 vgej=354) POCT-GLUCOSE [id number] 17:24:00 Test Item Value Reference Range Comments POC-GLUCOSE METER (BEAKER) 174 mg/dL 70-110 TESTED AT [address] (test mhgr=5415) [place] [address] CREATINE KINASE (CK)2017-08-02 16:08:00 Test Item Value Reference Range Comments CREATINE KINASE TOTAL (BEAKER) (test jbkw=914) 1799 U/L 29-200 POCT-GLUCOSE [id number] 15:44:00 Test Item Value Reference Range Comments POC-GLUCOSE METER (BEAKER) 174 mg/dL 70-110 TESTED AT [address] (test hwdi=4039) [place] [address] OXYGEN SATURATION, [id number] 15:44:00 Test Item Value Reference Range Comments O2 SATURATION (MEASURED) (BEAKER) (test govk=6361) 50.2 % BLOOD GAS, [id number] 15:40:00 Test Item Value Reference Range Comments PH ARTERIAL (BEAKER) (test dbsr=538) 7.46 7.35-7.45 PCO2 ARTERIAL (BEAKER) (test dqoj=941) 35 mmHg 35-45 PO2 ARTERIAL (BEAKER) (test bmjq=813) 244 mmHg 80-90 O2 SATURATION ARTERIAL (BEAKER) (test bjbf=811) 99.6 % 96.0-97.0 HCO3 ARTERIAL (BEAKER) (test gbwx=724) 25 mmol/L 21-29 BASE EXCESS ARTERIAL (BEAKER) (test nlae=612) 0.6 mmol/L -2.0-3.0 PATIENT TEMPERATURE (BEAKER) (test deeo=8444) 36.5 C FIO2 (BEAKER) (test zsua=1241) 100.0 % POCT-GLUCOSE [id number] 14:08:00 Test Item Value Reference Range Comments POC-GLUCOSE METER (BEAKER) 141 mg/dL 70-110 TESTED AT [address] (test ttmi=0850) [place] [address] POCT-GLUCOSE [id number] 13:22:00 Test Item Value Reference Range Comments POC-GLUCOSE METER (BEAKER) 97 mg/dL 70-110 TESTED AT [address] (test oezl=9077) [place] [address] HEPATIC FUNCTION [id number] 12:02:00 Test Item Value Reference Range Comments TOTAL PROTEIN (BEAKER) (test sata=349) 5.7 gm/dL 6.0-8.3 ALBUMIN (BEAKER) (test fyqc=6454) 2.8 g/dL 3.5-5.0 BILIRUBIN TOTAL (BEAKER) (test ifor=580) 1.0 mg/dL 0.2-1.2 BILIRUBIN DIRECT (BEAKER) (test senx=446) 0.6 mg/dL 0.1-0.5 ALKALINE PHOSPHATASE (BEAKER) (test pbth=457) 69 U/L 40-150 AST (SGOT) (BEAKER) (test epxa=317) 812 U/L 5-34 ALT (SGPT) (BEAKER) (test rhdw=694) 1604 U/L 6-55 [id number] 11:11:00 Test Item Value Reference Range Comments PARTIAL THROMBOPLASTIN TIME (BEAKER) (test 28.6 seconds 22.5-36.0 dcwn=791) 6 hours after starting heparin infusion and as indicated per sliding scalePOCT- GLUCOSE [id number] 10:59:00 Test Item Value Reference Range Comments POC-GLUCOSE METER (BEAKER) 105 mg/dL 70-110 TESTED AT [address] (test ukin=5441) [facility] [address] BLOOD GAS, [id number] 10:58:00 Test Item Value Reference Range Comments PH ARTERIAL (BEAKER) (test ctqq=901) 7.49 7.35-7.45 PCO2 ARTERIAL (BEAKER) (test rkjo=064) 36 mmHg 35-45 PO2 ARTERIAL (BEAKER) (test hlbd=550) 153 mmHg 80-90 O2 SATURATION ARTERIAL (BEAKER) (test cmwn=602) 99.1 % 96.0-97.0 HCO3 ARTERIAL (BEAKER) (test fbsl=562) 26 mmol/L 21-29 BASE EXCESS ARTERIAL (BEAKER) (test jkoe=902) 3.0 mmol/L -2.0-3.0 PATIENT TEMPERATURE (BEAKER) (test pbjf=5956) 37.0 C FIO2 (BEAKER) (test hjqk=3119) 100.0 % LACTIC ACID, ARTERIAL, WHOLE [id number] 10:28:00 Test Item Value Reference Range Comments LACTATE BLOOD ARTERIAL (2) (BEAKER) (test 1.1 mmol/L 0.5-2.2 peld=4869) Effective 03/21/2016: Units/Reference Range ChangeNew: 0.5-2.2 mmol/L Previous: 5 -20 mg/dLPOCT-GLUCOSE [id number] 08:55:00 Test Item Value Reference Range Comments POC-GLUCOSE METER (BEAKER) 111 mg/dL 70-110 TESTED AT [address] (test htql=0529) [facility] [address] HEMOGLOBIN AND [id number] 08:53:00 Test Item Value Reference Range Comments HEMOGLOBIN (BEAKER) (test sqgt=009) 9.1 GM/DL 13.7-17.5 HEMATOCRIT (BEAKER) (test ktoz=759) 26.7 % 40.1-51.0 POCT-GLUCOSE [id number] 06:28:00 Test Item Value Reference Range Comments POC-GLUCOSE METER (BEAKER) 122 mg/dL 70-110 TESTED AT [address] (test rxhh=7028) [facility] [address] OXYGEN SATURATION, [id number] 06:07:00 Test Item Value Reference Range Comments O2 SATURATION (MEASURED) (BEAKER) (test mdxq=3322) 61.5 % CBC W/PLT COUNT & AUTO [id number] 06:04:00 Test Item Value Reference Range Comments WHITE BLOOD CELL COUNT (BEAKER) (test sfae=387) 11.1 K/ L 3.5-10.5 RED BLOOD CELL COUNT (BEAKER) (test tjzi=155) 2.98 M/ L 4.63-6.08 HEMOGLOBIN (BEAKER) (test rdke=243) 9.1 GM/DL 13.7-17.5 HEMATOCRIT (BEAKER) (test ennl=287) 26.7 % 40.1-51.0 MEAN CORPUSCULAR VOLUME (BEAKER) (test ujjt=741) 89.6 fL 79.0-92.2 MEAN CORPUSCULAR HEMOGLOBIN (BEAKER) (test 30.5 pg 25.7-32.2 ewrs=540) MEAN CORPUSCULAR HEMOGLOBIN CONC (BEAKER) (test 34.1 GM/DL 32.3-36.5 yrnq=641) RED CELL DISTRIBUTION WIDTH (BEAKER) (test 12.7 % 11.6-14.4 knqq=468) PLATELET COUNT (BEAKER) (test unqi=590) 102 K/CU MM 150-450 MEAN PLATELET VOLUME (BEAKER) (test hkrg=902) 12.2 fL 9.4-12.4 NUCLEATED RED BLOOD CELLS (BEAKER) (test 0 /100 WBC 0-0 fkqr=772) NEUTROPHILS RELATIVE PERCENT (BEAKER) (test 84 % xoxz=377) LYMPHOCYTES RELATIVE PERCENT (BEAKER) (test 8 % mjum=085) MONOCYTES RELATIVE PERCENT (BEAKER) (test 6 % nicb=394) EOSINOPHILS RELATIVE PERCENT (BEAKER) (test 0 % rdkc=735) BASOPHILS RELATIVE PERCENT (BEAKER) (test 0 % iigz=813) NEUTROPHILS ABSOLUTE COUNT (BEAKER) (test 9.31 K/ L 1.78-5.38 amzu=297) LYMPHOCYTES ABSOLUTE COUNT (BEAKER) (test 0.90 K/ L 1.32-3.57 rywg=600) MONOCYTES ABSOLUTE COUNT (BEAKER) (test 0.63 K/ L 0.30-0.82 ovyu=403) EOSINOPHILS ABSOLUTE COUNT (BEAKER) (test 0.04 K/ L 0.04-0.54 pbly=305) BASOPHILS ABSOLUTE COUNT (BEAKER) (test 0.02 K/ L 0.01-0.08 mrfg=137) IMMATURE GRANULOCYTES-RELATIVE PERCENT (BEAKER) 2 % 0-1 (test eicw=9342) POCT-GLUCOSE [id number] 05:47:00 Test Item Value Reference Range Comments POC-GLUCOSE METER (BEAKER) 121 mg/dL 70-110 TESTED AT [address] (test lqgc=2404) [facility] [address] RAD, CHEST, 1 VIEW, NON [id number] 05:45:00Reason for exam:->s/p ACBShould this be performed [...] MDReport Verified Date/Time: 08/02 05:45:27 Reading Location: [facility] B1 C013X Ortho Consult Reading Room RAD, ABDOMEN/ KUB, 1 VIEW [id number] 05:44:00Reason for exam:->DistentionFINAL REPORT RAD, ABDOMEN/KUB, 1 [...] MDReport Verified Date/Time: 08/02/2017 05:44:54 Reading Location: [facility] B1 C013X Ortho Consult Reading Room [id number] 05:31:00 Test Item Value Reference Range Comments POTASSIUM (BEAKER) (test dqnm=658) 4.5 meq/L 3.5-5.1 [id number] 05:31:00 Test Item Value Reference Range Comments PHOSPHORUS (BEAKER) (test ntqx=100) 2.4 mg/dL 2.3-4.7 BASIC METABOLIC [id number] 05:31:00 Test Item Value Reference Range Comments SODIUM (BEAKER) (test 133 meq/L 136-145 pskz=535) POTASSIUM (BEAKER) (test 4.5 meq/L 3.5-5.1 iihl=295) CHLORIDE (BEAKER) (test 101 meq/L 98-107 heww=538) CO2 (BEAKER) (test 21 meq/L 22-29 hore=694) BLOOD UREA NITROGEN 44 mg/dL 7-21 (BEAKER) (test maii=672) CREATININE (BEAKER) (test 1.15 mg/dL 0.57-1.25 qfwo=922) GLUCOSE RANDOM (BEAKER) 116 mg/dL 70-105 (test njnv=359) CALCIUM (BEAKER) (test 8.1 mg/dL 8.4-10.2 qsci=743) EGFR (BEAKER) (test 65 mL/min/1.73 sq m ESTIMATED GFR IS NOT zjif=6840) ACCURATE CREATININE CLEARANCE IN PREDICTING GLOMERULAR FILTRATION RATE. ESTIMATED GFR IS NOT APPLICABLE FOR DIALYSIS PATIENTS. POCT-GLUCOSE [id number] 04:47:00 Test Item Value Reference Range Comments POC-GLUCOSE METER (BEAKER) 124 mg/dL 70-110 TESTED AT [address] (test frzd=4612) [place] [address] POCT-GLUCOSE [id number] 03:44:00 Test Item Value Reference Range Comments POC-GLUCOSE METER (BEAKER) 123 mg/dL 70-110 TESTED AT [address] (test awsa=1328) [place] [address] POCT-GLUCOSE [id number] 03:06:00 Test Item Value Reference Range Comments POC-GLUCOSE METER (BEAKER) 91 mg/dL 70-110 TESTED AT [address] (test glph=8252) [place] [address] [id number] 02:16:00 Test Item Value Reference Range Comments MAGNESIUM (BEAKER) (test nhsp=900) 2.0 mg/dL 1.6-2.6 POCT-GLUCOSE [id number] 02:07:00 Test Item Value Reference Range Comments POC-GLUCOSE METER (BEAKER) 111 mg/dL 70-110 TESTED AT [address] (test raxf=9060) [place] [address] POCT-GLUCOSE [id number] 01:16:00 Test Item Value Reference Range Comments POC-GLUCOSE METER (BEAKER) 123 mg/dL 70-110 TESTED AT [address] (test ckvj=5462) [place] [address] [id number] 01:03:00 Test Item Value Reference Range Comments POTASSIUM (BEAKER) (test ucwd=489) 4.4 meq/L 3.5-5.1 HEMOGLOBIN AND [id number] 00:57:00 Test Item Value Reference Range Comments HEMOGLOBIN (BEAKER) (test rzmg=185) 8.8 GM/DL 13.7-17.5 HEMATOCRIT (BEAKER) (test mfvs=835) 25.9 % 40.1-51.0 POCT-GLUCOSE [id number] 00:31:00 Test Item Value Reference Range Comments POC-GLUCOSE METER (BEAKER) 141 mg/dL 70-110 TESTED AT [address] (test jzsp=0203) [place] [address] POCT-GLUCOSE [id number] 23:05:00 Test Item Value Reference Range Comments POC-GLUCOSE METER (BEAKER) 149 mg/dL 70-110 TESTED AT [address] (test qkmt=1861) [place] [address] POCT-GLUCOSE [id number] 22:04:00 Test Item Value Reference Range Comments POC-GLUCOSE METER (BEAKER) 161 mg/dL 70-110 TESTED AT [address] (test udao=4840) [place] [address] [id number] 21:39:00 Test Item Value Reference Range Comments POTASSIUM (BEAKER) (test cbey=765) 4.7 meq/L 3.5-5.1 HEMOGLOBIN AND [id number] 21:16:00 Test Item Value Reference Range Comments HEMOGLOBIN (BEAKER) (test ozui=261) 8.4 GM/DL 13.7-17.5 HEMATOCRIT (BEAKER) (test okbl=639) 25.2 % 40.1-51.0 POCT-GLUCOSE [id number] 20:46:00 Test Item Value Reference Range Comments POC-GLUCOSE METER (BEAKER) 169 mg/dL 70-110 TESTED AT [address] (test rvqv=5786) [place] [address] POCT-GLUCOSE [id number] 19:40:00 Test Item Value Reference Range Comments POC-GLUCOSE METER (BEAKER) 201 mg/dL 70-110 TESTED AT [address] (test pgtt=5545) [place] [address] POCT-GLUCOSE [id number] 18:51:00 Test Item Value Reference Range Comments POC-GLUCOSE METER (BEAKER) 228 mg/dL 70-110 TESTED AT [address] (test mucp=7728) [place] [address] BASIC METABOLIC [id number] 18:02:00 Test Item Value Reference Range Comments SODIUM (BEAKER) (test 131 meq/L 136-145 qksx=043) POTASSIUM (BEAKER) (test 4.9 meq/L 3.5-5.1 jcks=097) CHLORIDE (BEAKER) (test 100 meq/L 98-107 glti=908) CO2 (BEAKER) (test 22 meq/L 22-29 jnhe=171) BLOOD UREA NITROGEN 51 mg/dL 7-21 (BEAKER) (test andd=333) CREATININE (BEAKER) (test 1.44 mg/dL 0.57-1.25 wrjl=538) GLUCOSE RANDOM (BEAKER) 231 mg/dL 70-105 (test sofd=869) CALCIUM (BEAKER) (test 8.5 mg/dL 8.4-10.2 bpqm=067) EGFR (BEAKER) (test 50 mL/min/1.73 sq m ESTIMATED GFR IS NOT agyq=9073) ACCURATE CREATININE CLEARANCE IN PREDICTING GLOMERULAR FILTRATION RATE. ESTIMATED GFR IS NOT APPLICABLE FOR DIALYSIS PATIENTS. OXYGEN SATURATION, [id number] 17:07:00 Test Item Value Reference Range Comments O2 SATURATION (MEASURED) (BEAKER) (test rtyq=8349) 60.3 % U/S, RENAL WITH [id number] 16:36:00Reason for exam:->akiFINAL REPORT TECHNIQUE: Grayscale, color [...] Artis MDReportVerified Date/Time: 08/01/2017 16:36:54 Reading Location: [facility] B1 P006J Ultrasound Reading Room POCT-GLUCOSE [id number] 15: 22:00 Test Item Value Reference Range Comments POC-GLUCOSE METER (BEAKER) 325 mg/dL 70-110 TESTED AT [address] (test wkxe=2932) [place] [address] RAD, CHEST, 1 VIEW, NON [id number] 13:30:00Reason for exam:->chest tubesFINAL REPORT TECHNIQUE: Frontal [...] No fracture. Signed: Annie Rubalcavaeport Verified Date/Time: 08/01/2017 13:30:25 Reading Location: [facility] Radiology Reading Room Electronically signed by: ANNIE RUBALCAVA on 2016 01:30 PMPOCT-GLUCOSE [id number] 13:21:00 Test Item Value Reference Range Comments POC-GLUCOSE METER (BEAKER) 295 mg/dL 70-110 TESTED AT [address] (test rbkn=3079) [place] [address] [id number] 13:15:00 Test Item Value Reference Range Comments POTASSIUM (BEAKER) (test jfvc=707) 5.2 meq/L 3.5-5.1 POCT-GLUCOSE [id number] 11:05:00 Test Item Value Reference Range Comments POC-GLUCOSE METER (BEAKER) 311 mg/dL 70-110 TESTED AT [address] (test cvvw=1342) [place] [address] [id number] 10:54:00 Test Item Value Reference Range Comments POTASSIUM (BEAKER) (test nwsx=025) 5.7 meq/L 3.5-5.1 LACTIC ACID, ARTERIAL, WHOLE [id number] 10:49:00 Test Item Value Reference Range Comments LACTATE BLOOD ARTERIAL (2) (BEAKER) (test 2.6 mmol/L 0.5-2.2 rasf=5691) Effective 03/21/2016: Units/Reference Range ChangeNew: 0.5-2.2 mmol/L Previous: 5 -20 mg/dLOXYGEN SATURATION, [id number] 10:39:00 Test Item Value Reference Range Comments O2 SATURATION (MEASURED) (BEAKER) (test rqlg=8428) 30.8 % POCT-GLUCOSE [id number] 10:16:00 Test Item Value Reference Range Comments POC-GLUCOSE METER (BEAKER) 364 mg/dL 70-110 Notified MELLISA GATES/TESTED AT [facility] (test lhna=1522) [address] [facility] [address] POCT-GLUCOSE [id number] 09:02:00 Test Item Value Reference Range Comments POC-GLUCOSE METER (BEAKER) 321 mg/dL 70-110 Notified MELLISA GATES/TESTED AT [facility] (test bzpa=7719) [address] [facility] [address] HEMOGLOBIN AND [id number] 08:23:00 Test Item Value Reference Range Comments HEMOGLOBIN (BEAKER) (test hkvs=871) 8.0 GM/DL 13.7-17.5 HEMATOCRIT (BEAKER) (test xoxi=378) 23.5 % 40.1-51.0 [id number] 08:20:00 Test Item Value Reference Range Comments POTASSIUM (BEAKER) (test yqry=019) 6.0 meq/L 3.5-5.1 [id number] 07:31:00 Test Item Value Reference Range Comments GLUCOSE RANDOM (BEAKER) (test ltqe=997) 345 mg/dL 70-105 POCT-GLUCOSE [id number] 06:50:00 Test Item Value Reference Range Comments POC-GLUCOSE METER (BEAKER) 373 mg/dL 70-110 TESTED AT [address] (test oiye=9546) [facility] [address] POCT-GLUCOSE [id number] 06:39:00 Test Item Value Reference Range Comments POC-GLUCOSE METER (BEAKER) 371 mg/dL 70-110 TESTED AT [facility] [address] (test vyhc=9951) [facility] [address] [id number] 04:16:00 Test Item Value Reference Range Comments PHOSPHORUS (BEAKER) (test uweh=242) 2.7 mg/dL 2.3-4.7 [id number] 04:16:00 Test Item Value Reference Range Comments MAGNESIUM (BEAKER) (test hbik=597) 2.2 mg/dL 1.6-2.6 BASIC METABOLIC [id number] 04:16:00 Test Item Value Reference Range Comments SODIUM (BEAKER) (test 131 meq/L 136-145 xdbc=301) POTASSIUM (BEAKER) (test 5.9 meq/L 3.5-5.1 scom=526) CHLORIDE (BEAKER) (test 100 meq/L 98-107 gnai=866) CO2 (BEAKER) (test 22 meq/L 22-29 oxmz=734) BLOOD UREA NITROGEN 43 mg/dL 7-21 (BEAKER) (test vvhr=753) CREATININE (BEAKER) (test 1.53 mg/dL 0.57-1.25 myyg=166) GLUCOSE RANDOM (BEAKER) 361 mg/dL 70-105 (test bayp=702) CALCIUM (BEAKER) (test 9.0 mg/dL 8.4-10.2 porh=787) EGFR (BEAKER) (test 47 mL/min/1.73 sq m ESTIMATED GFR IS NOT fgdk=5495) ACCURATE CREATININE CLEARANCE IN PREDICTING GLOMERULAR FILTRATION RATE. ESTIMATED GFR IS NOT APPLICABLE FOR DIALYSIS PATIENTS. CBC W/PLT COUNT & AUTO [id number] 04:04:00 Test Item Value Reference Range Comments WHITE BLOOD CELL COUNT (BEAKER) (test gfun=991) 12.0 K/ L 3.5-10.5 RED BLOOD CELL COUNT (BEAKER) (test tjht=607) 2.74 M/ L 4.63-6.08 HEMOGLOBIN (BEAKER) (test bxtj=269) 8.3 GM/DL 13.7-17.5 HEMATOCRIT (BEAKER) (test lwfk=668) 24.7 % 40.1-51.0 MEAN CORPUSCULAR VOLUME (BEAKER) (test eupb=990) 90.1 fL 79.0-92.2 MEAN CORPUSCULAR HEMOGLOBIN (BEAKER) (test 30.3 pg 25.7-32.2 ydlb=336) MEAN CORPUSCULAR HEMOGLOBIN CONC (BEAKER) (test 33.6 GM/DL 32.3-36.5 cbxs=220) RED CELL DISTRIBUTION WIDTH (BEAKER) (test 12.5 % 11.6-14.4 qfbf=385) PLATELET COUNT (BEAKER) (test kobn=911) 120 K/CU MM 150-450 MEAN PLATELET VOLUME (BEAKER) (test iaor=978) 11.8 fL 9.4-12.4 NUCLEATED RED BLOOD CELLS (BEAKER) (test 0 /100 WBC 0-0 lkzu=694) NEUTROPHILS RELATIVE PERCENT (BEAKER) (test 85 % jhct=665) LYMPHOCYTES RELATIVE PERCENT (BEAKER) (test 6 % cbww=971) MONOCYTES RELATIVE PERCENT (BEAKER) (test 9 % vbzv=803) EOSINOPHILS RELATIVE PERCENT (BEAKER) (test 0 % aqfj=877) BASOPHILS RELATIVE PERCENT (BEAKER) (test 0 % hvny=543) NEUTROPHILS ABSOLUTE COUNT (BEAKER) (test 10.12 K/ L 1.78-5.38 yyrn=533) LYMPHOCYTES ABSOLUTE COUNT (BEAKER) (test 0.71 K/ L 1.32-3.57 sgwv=772) MONOCYTES ABSOLUTE COUNT (BEAKER) (test 1.02 K/ L 0.30-0.82 kaam=789) EOSINOPHILS ABSOLUTE COUNT (BEAKER) (test 0.00 K/ L 0.04-0.54 shdz=157) BASOPHILS ABSOLUTE COUNT (BEAKER) (test 0.00 K/ L 0.01-0.08 qelw=074) IMMATURE GRANULOCYTES-RELATIVE PERCENT (BEAKER) 1 % 0-1 (test qgva=3387) POCT-GLUCOSE [id number] 01:54:00 Test Item Value Reference Range Comments POC-GLUCOSE METER (BEAKER) 403 mg/dL 70-110 Notified MELLISA GATES/TESTED AT [facility] (test cwrk=7034) [address] [facility] [address] HEMOGLOBIN AND [id number] 01:47:00 Test Item Value Reference Range Comments HEMOGLOBIN (BEAKER) (test ehwo=627) 8.7 GM/DL 13.7-17.5 HEMATOCRIT (BEAKER) (test hruo=610) 25.8 % 40.1-51.0 BASIC METABOLIC [id number] 23:56:00 Test Item Value Reference Range Comments SODIUM (BEAKER) (test 134 meq/L 136-145 sxse=750) POTASSIUM (BEAKER) (test 5.2 meq/L 3.5-5.1 tukx=333) CHLORIDE (BEAKER) (test 102 meq/L 98-107 mzvi=744) CO2 (BEAKER) (test 22 meq/L 22-29 zhsl=101) BLOOD UREA NITROGEN 35 mg/dL 7-21 (BEAKER) (test prdc=955) CREATININE (BEAKER) (test 1.35 mg/dL 0.57-1.25 kxwq=775) GLUCOSE RANDOM (BEAKER) 334 mg/dL 70-105 (test xfgq=798) CALCIUM (BEAKER) (test 9.4 mg/dL 8.4-10.2 ssff=821) EGFR (BEAKER) (test 54 mL/min/1.73 sq m ESTIMATED GFR IS NOT znii=3307) ACCURATE CREATININE CLEARANCE IN PREDICTING GLOMERULAR FILTRATION RATE. ESTIMATED GFR IS NOT APPLICABLE FOR DIALYSIS PATIENTS. POCT-GLUCOSE [id number] 23:10:00 Test Item Value Reference Range Comments POC-GLUCOSE METER (BEAKER) 344 mg/dL 70-110 Notified MELLISA GATES/TESTED AT [facility] (test dioy=5667) [address] [facility] [address] BLOOD GAS, [id number] 23:04:00 Test Item Value Reference Range Comments PH ARTERIAL (BEAKER) (test ojhk=814) 7.40 7.35-7.45 PCO2 ARTERIAL (BEAKER) (test xffi=353) 41 mm Hg 35-45 PO2 ARTERIAL (BEAKER) (test pblf=757) 69 mm Hg 80-90 O2 SATURATION ARTERIAL (BEAKER) (test uxgb=050) 93.9 % 96.0-97.0 HCO3 ARTERIAL (BEAKER) (test keln=831) 25 mmol/L 21-29 BASE EXCESS ARTERIAL (BEAKER) (test puqf=256) 0.0 mmol/L -2.0-3.0 PATIENT TEMPERATURE (BEAKER) (test zupt=0931) 37.0 OXYGEN SATURATION, [id number] 23:01:00 Test Item Value Reference Range Comments O2 SATURATION (MEASURED) (BEAKER) (test fwly=7517) 47.5 % [id number] 19:02:00 Test Item Value Reference Range Comments POTASSIUM (BEAKER) (test waed=497) 6.0 meq/L 3.5-5.1 BASIC METABOLIC [id number] 17:34:00 Test Item Value Reference Range Comments SODIUM (BEAKER) (test 135 meq/L 136-145 bpby=563) POTASSIUM (BEAKER) (test 5.7 meq/L 3.5-5.1 rstu=582) CHLORIDE (BEAKER) (test 105 meq/L 98-107 uxii=293) CO2 (BEAKER) (test 21 meq/L 22-29 rjdw=372) BLOOD UREA NITROGEN 34 mg/dL 7-21 (BEAKER) (test syll=075) CREATININE (BEAKER) (test 1.17 mg/dL 0.57-1.25 vkor=166) GLUCOSE RANDOM (BEAKER) 219 mg/dL 70-105 (test qrvm=384) CALCIUM (BEAKER) (test 8.4 mg/dL 8.4-10.2 kjte=710) EGFR (BEAKER) (test 64 mL/min/1.73 sq m ESTIMATED GFR IS NOT ptyl=7946) ACCURATE CREATININE CLEARANCE IN PREDICTING GLOMERULAR FILTRATION RATE. ESTIMATED GFR IS NOT APPLICABLE FOR DIALYSIS PATIENTS. HEMOGLOBIN AND [id number] 17:20:00 Test Item Value Reference Range Comments HEMOGLOBIN (BEAKER) (test wulu=204) 8.6 GM/DL 13.7-17.5 HEMATOCRIT (BEAKER) (test dhoy=246) 26.3 % 40.1-51.0 POCT-GLUCOSE [id number] 09:52:00 Test Item Value Reference Range Comments POC-GLUCOSE METER (BEAKER) 138 mg/dL 70-110 TESTED AT [facility] [address] [facility] (test mvyq=2785) [place] [address] HEMOGLOBIN AND [id number] 08:27:00 Test Item Value Reference Range Comments HEMOGLOBIN (BEAKER) (test hnyx=299) 8.8 GM/DL 13.7-17.5 HEMATOCRIT (BEAKER) (test cwpx=310) 26.2 % 40.1-51.0 RAD, CHEST, 1 VIEW, NON [id number] 08:22:00Reason for exam:->pl effusionShould this be performed [...] MDReport Verified Date/Time: 07/31/2017 08:22:41 Reading Location: [facility] Diagnostic Imaging Reading Room - [place] [id number] Electronically signed by: ENRIKE MINER M.D. on 2016 08:22AMPOCT-GLUCOSE [id number] 08:03:00 Test Item Value Reference Range Comments POC-GLUCOSE METER (BEAKER) 104 mg/dL 70-110 TESTED AT [address] (test fxam=5276) [facility] [address] POCT-GLUCOSE [id number] 07:20:00 Test Item Value Reference Range Comments POC-GLUCOSE METER (BEAKER) 106 mg/dL 70-110 TESTED AT [address] (test kxxc=1279) [facility] [address] POCT-GLUCOSE [id number] 07:20:00 Test Item Value Reference Range Comments POC-GLUCOSE METER (BEAKER) 100 mg/dL 70-110 TESTED AT [address] (test ptnh=7331) [facility] [address] POCT-GLUCOSE [id number] 07:20:00 Test Item Value Reference Range Comments POC-GLUCOSE METER (BEAKER) 111 mg/dL 70-110 TESTED AT [address] (test vwfi=2227) [facility] [address] POCT-GLUCOSE [id number] 04:40:00 Test Item Value Reference Range Comments POC-GLUCOSE METER (BEAKER) 169 mg/dL 70-110 TESTED AT [address] (test ilap=8719) [facility] [address] POCT-GLUCOSE [id number] 04:40:00 Test Item Value Reference Range Comments POC-GLUCOSE METER (BEAKER) 180 mg/dL 70-110 TESTED AT [facility] [address] (test uzwm=2720) [place] [address] CBC W/PLT COUNT & AUTO [id number] 04:07:00 Test Item Value Reference Range Comments WHITE BLOOD CELL COUNT (BEAKER) (test tymm=266) 12.1 K/ L 3.5-10.5 RED BLOOD CELL COUNT (BEAKER) (test gwfz=261) 3.03 M/ L 4.63-6.08 HEMOGLOBIN (BEAKER) (test knko=006) 9.2 GM/DL 13.7-17.5 HEMATOCRIT (BEAKER) (test zqrk=846) 27.5 % 40.1-51.0 MEAN CORPUSCULAR VOLUME (BEAKER) (test dsxb=311) 90.8 fL 79.0-92.2 MEAN CORPUSCULAR HEMOGLOBIN (BEAKER) (test 30.4 pg 25.7-32.2 trzk=296) MEAN CORPUSCULAR HEMOGLOBIN CONC (BEAKER) (test 33.5 GM/DL 32.3-36.5 mvcw=028) RED CELL DISTRIBUTION WIDTH (BEAKER) (test 12.6 % 11.6-14.4 zryh=058) PLATELET COUNT (BEAKER) (test bktx=373) 157 K/CU MM 150-450 MEAN PLATELET VOLUME (BEAKER) (test yvtt=809) 12.0 fL 9.4-12.4 NUCLEATED RED BLOOD CELLS (BEAKER) (test 0 /100 WBC 0-0 lybf=304) NEUTROPHILS RELATIVE PERCENT (BEAKER) (test 84 % argi=912) LYMPHOCYTES RELATIVE PERCENT (BEAKER) (test 6 % oazm=688) MONOCYTES RELATIVE PERCENT (BEAKER) (test 10 % hdgq=869) EOSINOPHILS RELATIVE PERCENT (BEAKER) (test 0 % snlx=428) BASOPHILS RELATIVE PERCENT (BEAKER) (test 0 % jaer=693) NEUTROPHILS ABSOLUTE COUNT (BEAKER) (test 10.17 K/ L 1.78-5.38 icpq=195) LYMPHOCYTES ABSOLUTE COUNT (BEAKER) (test 0.66 K/ L 1.32-3.57 duyo=301) MONOCYTES ABSOLUTE COUNT (BEAKER) (test 1.20 K/ L 0.30-0.82 pfwj=416) EOSINOPHILS ABSOLUTE COUNT (BEAKER) (test 0.00 K/ L 0.04-0.54 nnbr=172) BASOPHILS ABSOLUTE COUNT (BEAKER) (test 0.01 K/ L 0.01-0.08 alvi=633) IMMATURE GRANULOCYTES-RELATIVE PERCENT (BEAKER) 1 % 0-1 (test tbtn=1879) [id number] 03:47:00 Test Item Value Reference Range Comments MAGNESIUM (BEAKER) (test yxmi=420) 2.5 mg/dL 1.6-2.6 BASIC METABOLIC [id number] 03:47:00 Test Item Value Reference Range Comments SODIUM (BEAKER) (test 139 meq/L 136-145 hjqu=171) POTASSIUM (BEAKER) (test 4.6 meq/L 3.5-5.1 lmvi=328) CHLORIDE (BEAKER) (test 108 meq/L 98-107 gren=403) CO2 (BEAKER) (test 24 meq/L 22-29 qase=058) BLOOD UREA NITROGEN 26 mg/dL 7-21 (BEAKER) (test eanm=330) CREATININE (BEAKER) (test 1.15 mg/dL 0.57-1.25 mjvu=522) GLUCOSE RANDOM (BEAKER) 119 mg/dL 70-105 (test ozvu=473) CALCIUM (BEAKER) (test 8.9 mg/dL 8.4-10.2 vdvc=804) EGFR (BEAKER) (test 65 mL/min/1.73 sq m ESTIMATED GFR IS NOT avpq=4189) ACCURATE CREATININE CLEARANCE IN PREDICTING GLOMERULAR FILTRATION RATE. ESTIMATED GFR IS NOT APPLICABLE FOR DIALYSIS PATIENTS. LACTIC ACID, ARTERIAL, WHOLE [id number] 03:44:00 Test Item Value Reference Range Comments LACTATE BLOOD ARTERIAL (2) (BEAKER) (test 1.5 mmol/L 0.5-2.2 zhek=7436) Effective 03/21/2016: Units/Reference Range ChangeNew: 0.5-2.2 mmol/L Previous: 5 -20 mg/dLCALCIUM, [id number] 03:19:00 Test Item Value Reference Range Comments CALCIUM IONIZED (BEAKER) (test ebwz=728) 1.14 mmol/L 1.12-1.27 PH, BLOOD (BEAKER) (test twis=9721) 7.36 OXYGEN SATURATION, [id number] 03:19:00 Test Item Value Reference Range Comments O2 SATURATION (MEASURED) (BEAKER) (test gxgm=8481) 66.3 % POCT-GLUCOSE [id number] 01:29:00 Test Item Value Reference Range Comments POC-GLUCOSE METER (BEAKER) 145 mg/dL 70-110 TESTED AT [address] (test dlqe=7848) [place] [address] POCT-GLUCOSE [id number] 01:29:00 Test Item Value Reference Range Comments POC-GLUCOSE METER (BEAKER) 152 mg/dL 70-110 TESTED AT [address] (test sgls=1783) [place] [address] HEMOGLOBIN AND [id number] 00:12:00 Test Item Value Reference Range Comments HEMOGLOBIN (BEAKER) (test pksg=402) 9.4 GM/DL 13.7-17.5 HEMATOCRIT (BEAKER) (test kszr=890) 27.2 % 40.1-51.0 POCT-GLUCOSE [id number] 23:59:00 Test Item Value Reference Range Comments POC-GLUCOSE METER (BEAKER) 178 mg/dL 70-110 TESTED AT [address] (test zsft=2033) [place] [address] [id number] 21:41:00 Test Item Value Reference Range Comments POTASSIUM (BEAKER) (test bwgd=076) 4.7 meq/L 3.5-5.1 Check Serum Potassium level 2 hours after oral potassium replacement completed or 30 min after intravenous potassium replacement.[id number] 21:41:00 Test Item Value Reference Range Comments MAGNESIUM (BEAKER) (test fxtv=764) 2.1 mg/dL 1.6-2.6 Check Serum Potassium level 2 hours after oral potassium replacement completed or 30 min after intravenous potassium replacement.POCT-GLUCOSE [id number] 21:00:00 Test Item Value Reference Range Comments POC-GLUCOSE METER (BEAKER) 187 mg/dL 70-110 TESTED AT [address] (test jgvn=8497) [place] [id number] POCT-GLUCOSE [id number] 21:00:00 Test Item Value Reference Range Comments POC-GLUCOSE METER (BEAKER) 178 mg/dL 70-110 TESTED AT [address] (test losk=9274) [facility] [address] POCT-GLUCOSE [id number] 18:42:00 Test Item Value Reference Range Comments POC-GLUCOSE METER (BEAKER) 221 mg/dL 70-110 TESTED AT [address] (test pjch=7475) [facility] [address] POCT-GLUCOSE [id number] 18:41:00 Test Item Value Reference Range Comments POC-GLUCOSE METER (BEAKER) 244 mg/dL 70-110 TESTED AT [address] (test ldbx=0191) [facility] [address] POCT-GLUCOSE [id number] 18:41:00 Test Item Value Reference Range Comments POC-GLUCOSE METER (BEAKER) 269 mg/dL 70-110 TESTED AT [address] (test wyyu=7380) [facility] [address] POCT-GLUCOSE [id number] 18:41:00 Test Item Value Reference Range Comments POC-GLUCOSE METER (BEAKER) 306 mg/dL 70-110 TESTED AT [address] (test anhj=5679) [facility] [address] POTASSIUM-STAT [id number] 18:32:00 Test Item Value Reference Range Comments POTASSIUM (BEAKER) (test kaqm=473) 3.9 meq/L 3.6-5.5 BLOOD GAS, [id number] 18:32:00 Test Item Value Reference Range Comments PH ARTERIAL (BEAKER) (test zsvf=953) 7.37 7.35-7.45 PCO2 ARTERIAL (BEAKER) (test xkko=790) 43 mmHg 35-45 PO2 ARTERIAL (BEAKER) (test xdmr=302) 95 mmHg 80-90 O2 SATURATION ARTERIAL (BEAKER) (test nhzq=397) 96.8 % 96.0-97.0 HCO3 ARTERIAL (BEAKER) (test uxoi=579) 24 mmol/L 21-29 BASE EXCESS ARTERIAL (BEAKER) (test xjyc=783) -1.0 mmol/L -2.0-3.0 PATIENT TEMPERATURE (BEAKER) (test ioey=7494) 37.6 C FIO2 (BEAKER) (test bbcy=9125) 60.0 % SODIUM NA-STAT [id number] 18:32:00 Test Item Value Reference Range Comments SODIUM (BEAKER) (test ioud=233) 134 meq/L 135-148 GLUCOSE-STAT [id number] 18:32:00 Test Item Value Reference Range Comments GLUCOSE RANDOM (BEAKER) (test aqtc=415) 190 mg/dL 70-110 HGB/HCT (H&H) - STAT [id number] 18:32:00 Test Item Value Reference Range Comments HEMOGLOBIN (BEAKER) (test efnf=451) 10.5 g/dL 13.0-16.8 HEMATOCRIT (BEAKER) (test pqle=077) 31.0 % 40.0-50.0 CALCIUM, [id number] 18:32:00 Test Item Value Reference Range Comments CALCIUM IONIZED (BEAKER) (test ldgw=208) 1.16 mmol/L 1.12-1.27 PH, BLOOD (BEAKER) (test ogij=4329) 7.38 [id number] 16:39:00 Test Item Value Reference Range Comments MAGNESIUM (BEAKER) (test onfn=334) 1.9 mg/dL 1.6-2.6 GLUCOSE-STAT [id number] 16:24:00 Test Item Value Reference Range Comments GLUCOSE RANDOM (BEAKER) (test feub=573) 252 mg/dL 70-110 BLOOD GAS, [id number] 16:24:00 Test Item Value Reference Range Comments PH ARTERIAL (BEAKER) (test bvor=074) 7.36 7.35-7.45 PCO2 ARTERIAL (BEAKER) (test wcuu=786) 42 mmHg 35-45 PO2 ARTERIAL (BEAKER) (test fufo=966) 91 mmHg 80-90 O2 SATURATION ARTERIAL (BEAKER) (test evzk=271) 95.7 % 96.0-97.0 HCO3 ARTERIAL (BEAKER) (test seuq=173) 23 mmol/L 21-29 BASE EXCESS ARTERIAL (BEAKER) (test gvpp=610) -1.9 mmol/L -2.0-3.0 PATIENT TEMPERATURE (BEAKER) (test xwaj=6776) 39.1 C FIO2 (BEAKER) (test ynbr=1148) 40.0 % CALCIUM, [id number] 16:24:00 Test Item Value Reference Range Comments CALCIUM IONIZED (BEAKER) (test bmor=529) 1.06 mmol/L 1.12-1.27 PH, BLOOD (BEAKER) (test ruet=9840) 7.39 POTASSIUM-STAT [id number] 16:22:00 Test Item Value Reference Range Comments POTASSIUM (BEAKER) (test mjas=005) 3.6 meq/L 3.6-5.5 RAD, CHEST, 1 VIEW, NON [id number] 14:41:00Reason for exam:->post opShould this be performed [...] well aligned. No fracture. Signed: Annie Rubalcava Verified Date/Time: 07/30/2017 14:41:41 Reading Location: [facility] Radiology Reading Room CBC (HEMOGRAM ONLY)2017-07-30 13:32:00 Test Item Value Reference Range Comments WHITE BLOOD CELL COUNT (BEAKER) (test kqss=479) 13.6 K/ L 3.5-10.5 RED BLOOD CELL COUNT (BEAKER) (test odoj=906) 3.55 M/ L 4.63-6.08 HEMOGLOBIN (BEAKER) (test kqte=531) 10.9 GM/DL 13.7-17.5 HEMATOCRIT (BEAKER) (test pywe=854) 30.8 % 40.1-51.0 MEAN CORPUSCULAR VOLUME (BEAKER) (test nqkh=452) 86.8 fL 79.0-92.2 MEAN CORPUSCULAR HEMOGLOBIN (BEAKER) (test 30.7 pg 25.7-32.2 mhiu=261) MEAN CORPUSCULAR HEMOGLOBIN CONC (BEAKER) (test 35.4 GM/DL 32.3-36.5 ieme=198) RED CELL DISTRIBUTION WIDTH (BEAKER) (test 12.1 % 11.6-14.4 efhy=983) PLATELET COUNT (BEAKER) (test zuas=817) 131 K/CU MM 150-450 MEAN PLATELET VOLUME (BEAKER) (test adsg=543) 11.8 fL 9.4-12.4 NUCLEATED RED BLOOD CELLS (BEAKER) (test 0 /100 WBC 0-0 lmgi=002) [id number] 13:04:00 Test Item Value Reference Range Comments MAGNESIUM (BEAKER) (test 2.1 mg/dL 1.6-2.6 Specimen slightly hemolyzed qhvz=236) [id number] 13:04:00 Test Item Value Reference Range Comments PHOSPHORUS (BEAKER) (test 2.5 mg/dL 2.3-4.7 Specimen slightly hemolyzed bivo=228) BASIC METABOLIC [id number] 13:03:00 Test Item Value Reference Range Comments SODIUM (BEAKER) (test 135 meq/L 136-145 aaan=995) POTASSIUM (BEAKER) (test 4.6 meq/L 3.5-5.1 Specimen slightly wxjk=061) hemolyzed CHLORIDE (BEAKER) (test 104 meq/L 98-107 zemg=057) CO2 (BEAKER) (test 24 meq/L 22-29 wtpl=721) BLOOD UREA NITROGEN 25 mg/dL 7-21 (BEAKER) (test ihtf=884) CREATININE (BEAKER) (test 0.96 mg/dL 0.57-1.25 Specimen slightly bojy=507) hemolyzed GLUCOSE RANDOM (BEAKER) 258 mg/dL 70-105 (test osxg=103) CALCIUM (BEAKER) (test 8.3 mg/dL 8.4-10.2 axmj=837) EGFR (BEAKER) (test 80 mL/min/1.73 sq m ESTIMATED GFR IS NOT whle=3998) ACCURATE CREATININE CLEARANCE IN PREDICTING GLOMERULAR FILTRATION RATE. ESTIMATED GFR IS NOT APPLICABLE FOR DIALYSIS PATIENTS. LACTIC ACID, ARTERIAL, WHOLE [id number] 12:57:00 Test Item Value Reference Range Comments LACTATE BLOOD ARTERIAL (2) 1.8 mmol/L 0.5-2.2 Specimen slightly hemolyzed (BEAKER) (test rtfo=5736) Effective 03/21/2016: Units/Reference Range ChangeNew: 0.5-2.2 mmol/L Previous: 5 -20 mg/dLCALCIUM, [id number] 12:44:00 Test Item Value Reference Range Comments CALCIUM IONIZED (BEAKER) (test lvpk=481) 1.12 mmol/L 1.12-1.27 PH, BLOOD (BEAKER) (test oynz=7966) 7.45 GLUCOSE-STAT [id number] 12:44:00 Test Item Value Reference Range Comments GLUCOSE RANDOM (BEAKER) (test glgo=613) 253 mg/dL 70-110 HGB/HCT (H&H) - STAT [id number] 12:44:00 Test Item Value Reference Range Comments HEMOGLOBIN (BEAKER) (test eufs=774) 11.9 g/dL 13.0-16.8 HEMATOCRIT (BEAKER) (test yklg=954) 35.0 % 40.0-50.0 SODIUM NA-STAT [id number] 12:44:00 Test Item Value Reference Range Comments SODIUM (BEAKER) (test qijw=792) 131 meq/L 135-148 POTASSIUM-STAT [id number] 12:44:00 Test Item Value Reference Range Comments POTASSIUM (BEAKER) (test wsnp=480) 4.4 meq/L 3.6-5.5 BLOOD GAS, [id number] 12:44:00 Test Item Value Reference Range Comments PH ARTERIAL (BEAKER) (test iyzs=599) 7.45 7.35-7.45 PCO2 ARTERIAL (BEAKER) (test ivps=217) 36 mmHg 35-45 PO2 ARTERIAL (BEAKER) (test xzdp=207) 109 mmHg 80-90 O2 SATURATION ARTERIAL (BEAKER) (test yomt=236) 98.3 % 96.0-97.0 HCO3 ARTERIAL (BEAKER) (test nemv=092) 25 mmol/L 21-29 BASE EXCESS ARTERIAL (BEAKER) (test abvu=972) 0.8 mmol/L -2.0-3.0 PATIENT TEMPERATURE (BEAKER) (test yybx=7604) 36.5 C FIO2 (BEAKER) (test emyc=4755) 60.0 % OXYGEN SATURATION, [id number] 12:44:00 Test Item Value Reference Range Comments O2 SATURATION (MEASURED) (BEAKER) (test leuz=8078) 55.1 % [id number] 12:11:00 Test Item Value Reference Range Comments ACTIVATED CLOTTING TIME 555 sec TESTED AT [address] (BEAKER) (test jojt=275) [place] [address] [id number] 12:11:00 Test Item Value Reference Range Comments ACTIVATED CLOTTING TIME 466 sec TESTED AT [address] (BEAKER) (test fmrc=236) [place] [address] [id number] 12:11:00 Test Item Value Reference Range Comments ACTIVATED CLOTTING TIME 549 sec TESTED AT [address] (BEAKER) (test mgnl=040) [place] [address] [id number] 12:11:00 Test Item Value Reference Range Comments ACTIVATED CLOTTING TIME 428 sec TESTED AT [address] (BEAKER) (test ayhd=593) [place] [address] [id number] 12:11:00 Test Item Value Reference Range Comments ACTIVATED CLOTTING TIME 423 sec TESTED AT [address] (BEAKER) (test qetx=743) [place] [address] THROMBOELASTOGRAPH (TEG)2017-07-30 11:42:00 Test Item Value Reference Range Comments TEG ACTIVATED CLOTTING TIME (BEAKER) (test 16.2 minutes 4.0-7.0 menq=5122) TEG FIBRINOGEN ACTIVITY (BEAKER) (test 48.3 degrees 61.0-73.0 uwnw=3168) TEG PLT. AGGREGATION (BEAKER) (test pssl=1125) 71.4 MM 55.0-65.0 TGH ACTIVATED CLOTTING TIME (BEAKER) (test 16.4 minutes 4.0-7.0 tynt=6066) TGH FIBRINOGEN ACTIVITY (BEAKER) (test 48.1 degrees 61.0-73.0 rheg=2862) TGH PLT. AGGREGATION (BEAKER) (test wzqw=5370) 68.8 MM 55.0-65.0 PLATELET [id number] 11:13:00 Test Item Value Reference Range Comments PLATELET COUNT (BEAKER) (test zvih=097) 66 K/CU MM 150-450 OR patient PROTHROMBIN TIME/[id number] 10:58:00 Test Item Value Reference Range Comments PROTIME (BEAKER) (test fztf=498) 22.1 seconds 11.7-14.7 INR (BEAKER) (test xaby=029) 1.9 <=5.9 RECOMMENDED COUMADIN/WARFARIN INR THERAPY RANGESSTANDARD DOSE: 2.0 - 3.0 Includes: PROPHYLAXIS forvenous thrombosis, systemic embolization; TREATMENT for venous thrombosis and/or pulmonary embolus.HIGH RISK: Target INR is 2.5-3.5 for patients with mechanical heart valves.[id number] 10:58:00 Test Item Value Reference Range Comments FIBRINOGEN LEVEL (BEAKER) (test ebnh=134) 542 mg/dl 225-434 [id number] 10:58:00 Test Item Value Reference Range Comments PARTIAL THROMBOPLASTIN TIME (BEAKER) (test 35.4 seconds 22.5-36.0 eokk=625) CALCIUM, [id number] 10:45:00 Test Item Value Reference Range Comments CALCIUM IONIZED (BEAKER) (test dwji=249) 1.12 mmol/L 1.12-1.27 PH, BLOOD (BEAKER) (test ljsh=2685) 7.44 BLOOD GAS, [id number] 10:45:00 Test Item Value Reference Range Comments PH ARTERIAL (BEAKER) (test wstn=039) 7.45 7.35-7.45 PCO2 ARTERIAL (BEAKER) (test dlrt=800) 37 mmHg 35-45 PO2 ARTERIAL (BEAKER) (test sphi=281) 64 mmHg 80-90 O2 SATURATION ARTERIAL (BEAKER) (test qmpj=497) 94.5 % 96.0-97.0 HCO3 ARTERIAL (BEAKER) (test cijw=299) 25 mmol/L 21-29 BASE EXCESS ARTERIAL (BEAKER) (test reqx=128) 1.0 mmol/L -2.0-3.0 PATIENT TEMPERATURE (BEAKER) (test jicd=2520) 35.9 C FIO2 (BEAKER) (test ppbt=1681) 92.0 % SODIUM NA-STAT [id number] 10:45:00 Test Item Value Reference Range Comments SODIUM (BEAKER) (test xucf=277) 128 meq/L 135-148 GLUCOSE-STAT [id number] 10:45:00 Test Item Value Reference Range Comments GLUCOSE RANDOM (BEAKER) (test qmbf=893) 260 mg/dL 70-110 HGB/HCT (H&H) - STAT [id number] 10:45:00 Test Item Value Reference Range Comments HEMOGLOBIN (BEAKER) (test twke=569) 10.3 g/dL 13.0-16.8 HEMATOCRIT (BEAKER) (test srpx=480) 30.0 % 40.0-50.0 POTASSIUM-STAT [id number] 10:44:00 Test Item Value Reference Range Comments POTASSIUM (BEAKER) (test lnfu=096) 5.1 meq/L 3.6-5.5 POTASSIUM-STAT [id number] 10:03:00 Test Item Value Reference Range Comments POTASSIUM (BEAKER) (test ugbc=043) 5.4 meq/L 3.6-5.5 BLOOD GAS, [id number] 10:03:00 Test Item Value Reference Range Comments PH ARTERIAL (BEAKER) (test hdgo=547) 7.45 7.35-7.45 PCO2 ARTERIAL (BEAKER) (test oehm=756) 39 mmHg 35-45 PO2 ARTERIAL (BEAKER) (test bfef=315) 291 mmHg 80-90 O2 SATURATION ARTERIAL (BEAKER) (test pumu=477) 99.7 % 96.0-97.0 HCO3 ARTERIAL (BEAKER) (test pznv=147) 27 mmol/L 21-29 BASE EXCESS ARTERIAL (BEAKER) (test qfsl=018) 2.4 mmol/L -2.0-3.0 PATIENT TEMPERATURE (BEAKER) (test apdw=7272) 36.4 C FIO2 (BEAKER) (test byfo=5395) 75.0 % SODIUM NA-STAT [id number] 10:03:00 Test Item Value Reference Range Comments SODIUM (BEAKER) (test llac=673) 127 meq/L 135-148 GLUCOSE-STAT [id number] 10:03:00 Test Item Value Reference Range Comments GLUCOSE RANDOM (BEAKER) (test jylh=149) 263 mg/dL 70-110 HGB/HCT (H&H) - STAT [id number] 10:03:00 Test Item Value Reference Range Comments HEMOGLOBIN (BEAKER) (test arem=727) 9.6 g/dL 13.0-16.8 HEMATOCRIT (BEAKER) (test fkrs=056) 28.0 % 40.0-50.0 BLOOD GAS, [id number] 09:38:00 Test Item Value Reference Range Comments PH ARTERIAL (BEAKER) (test ynrh=062) 7.49 7.35-7.45 PCO2 ARTERIAL (BEAKER) (test xtjx=362) 34 mmHg 35-45 PO2 ARTERIAL (BEAKER) (test pmos=615) 235 mmHg 80-90 O2 SATURATION ARTERIAL (BEAKER) (test usxt=837) 99.6 % 96.0-97.0 HCO3 ARTERIAL (BEAKER) (test brza=659) 27 mmol/L 21-29 BASE EXCESS ARTERIAL (BEAKER) (test ekuj=630) 1.7 mmol/L -2.0-3.0 PATIENT TEMPERATURE (BEAKER) (test nrmw=4574) 30.0 C FIO2 (BEAKER) (test fzct=6435) 60.0 % SODIUM NA-STAT [id number] 09:38:00 Test Item Value Reference Range Comments SODIUM (BEAKER) (test ujyi=993) 127 meq/L 135-148 GLUCOSE-STAT [id number] 09:38:00 Test Item Value Reference Range Comments GLUCOSE RANDOM (BEAKER) (test pxat=414) 256 mg/dL 70-110 HGB/HCT (H&H) - STAT [id number] 09:38:00 Test Item Value Reference Range Comments HEMOGLOBIN (BEAKER) (test vyub=583) 9.4 g/dL 13.0-16.8 HEMATOCRIT (BEAKER) (test lpxf=603) 28.0 % 40.0-50.0 POTASSIUM-STAT [id number] 09:37:00 Test Item Value Reference Range Comments POTASSIUM (BEAKER) (test lyve=399) 4.8 meq/L 3.6-5.5 POTASSIUM-STAT [id number] 09:08:00 Test Item Value Reference Range Comments POTASSIUM (BEAKER) (test vjfk=345) 3.7 meq/L 3.6-5.5 BLOOD GAS, [id number] 09:08:00 Test Item Value Reference Range Comments PH ARTERIAL (BEAKER) (test afbt=024) 7.37 7.35-7.45 PCO2 ARTERIAL (BEAKER) (test nhgj=708) 42 mmHg 35-45 PO2 ARTERIAL (BEAKER) (test ncmi=043) 294 mmHg 80-90 O2 SATURATION ARTERIAL (BEAKER) (test mwqa=794) 99.7 % 96.0-97.0 HCO3 ARTERIAL (BEAKER) (test kvzo=009) 25 mmol/L 21-29 BASE EXCESS ARTERIAL (BEAKER) (test lkxj=069) -1.5 mmol/L -2.0-3.0 PATIENT TEMPERATURE (BEAKER) (test oxdy=8045) 32.5 C FIO2 (BEAKER) (test vexj=7767) 60.0 % SODIUM NA-STAT [id number] 09:08:00 Test Item Value Reference Range Comments SODIUM (BEAKER) (test cgsb=377) 125 meq/L 135-148 GLUCOSE-STAT [id number] 09:08:00 Test Item Value Reference Range Comments GLUCOSE RANDOM (BEAKER) (test hluu=048) 197 mg/dL 70-110 HGB/HCT (H&H) - STAT [id number] 09:08:00 Test Item Value Reference Range Comments HEMOGLOBIN (BEAKER) (test jlce=843) 8.7 g/dL 13.0-16.8 HEMATOCRIT (BEAKER) (test qyed=164) 26.0 % 40.0-50.0 CALCIUM, [id number] 08:12:00 Test Item Value Reference Range Comments CALCIUM IONIZED (BEAKER) (test qflt=253) 1.06 mmol/L 1.12-1.27 PH, BLOOD (BEAKER) (test skpv=1917) 7.45 BLOOD GAS, [id number] 08:12:00 Test Item Value Reference Range Comments PH ARTERIAL (BEAKER) (test irpu=556) 7.45 7.35-7.45 PCO2 ARTERIAL (BEAKER) (test hmdz=662) 41 mmHg 35-45 PO2 ARTERIAL (BEAKER) (test muzk=275) 196 mmHg 80-90 O2 SATURATION ARTERIAL (BEAKER) (test dcif=950) 99.4 % 96.0-97.0 HCO3 ARTERIAL (BEAKER) (test ajdp=858) 27 mmol/L 21-29 BASE EXCESS ARTERIAL (BEAKER) (test fbqx=698) 3.3 mmol/L -2.0-3.0 PATIENT TEMPERATURE (BEAKER) (test ebmb=2303) 37.4 C FIO2 (BEAKER) (test wspq=7808) 100.0 % SODIUM NA-STAT [id number] 08:12:00 Test Item Value Reference Range Comments SODIUM (BEAKER) (test yrry=886) 132 meq/L 135-148 GLUCOSE-STAT [id number] 08:12:00 Test Item Value Reference Range Comments GLUCOSE RANDOM (BEAKER) (test oisk=402) 243 mg/dL 70-110 HGB/HCT (H&H) - STAT [id number] 08:12:00 Test Item Value Reference Range Comments HEMOGLOBIN (BEAKER) (test suwu=644) 13.4 g/dL 13.0-16.8 HEMATOCRIT (BEAKER) (test wgzf=771) 39.0 % 40.0-50.0 POTASSIUM-STAT [id number] 08:09:00 Test Item Value Reference Range Comments POTASSIUM (BEAKER) (test uwjt=615) 4.0 meq/L 3.6-5.5 [id number] 04:50:00 Test Item Value Reference Range Comments MAGNESIUM (BEAKER) (test szkm=160) 2.1 mg/dL 1.6-2.6 BASIC METABOLIC [id number] 04:50:00 Test Item Value Reference Range Comments SODIUM (BEAKER) (test 135 meq/L 136-145 jrnb=560) POTASSIUM (BEAKER) (test 4.2 meq/L 3.5-5.1 rcyk=143) CHLORIDE (BEAKER) (test 98 meq/L 98-107 qzap=271) CO2 (BEAKER) (test 29 meq/L 22-29 hdqt=831) BLOOD UREA NITROGEN 27 mg/dL 7-21 (BEAKER) (test fcsu=676) CREATININE (BEAKER) (test 1.18 mg/dL 0.57-1.25 xrtr=894) GLUCOSE RANDOM (BEAKER) 289 mg/dL 70-105 (test famy=280) CALCIUM (BEAKER) (test 8.8 mg/dL 8.4-10.2 bmaz=045) EGFR (BEAKER) (test 63 mL/min/1.73 sq m ESTIMATED GFR IS NOT gnfv=8236) ACCURATE CREATININE CLEARANCE IN PREDICTING GLOMERULAR FILTRATION RATE. ESTIMATED GFR IS NOT APPLICABLE FOR DIALYSIS PATIENTS. [id number] 04:49:00 Test Item Value Reference Range Comments PARTIAL THROMBOPLASTIN TIME (BEAKER) (test 56.8 seconds 22.5-36.0 fafr=589) CBC W/PLT COUNT & AUTO [id number] 04:48:00 Test Item Value Reference Range Comments WHITE BLOOD CELL COUNT (BEAKER) (test iejv=744) 10.3 K/ L 3.5-10.5 RED BLOOD CELL COUNT (BEAKER) (test mxap=759) 4.06 M/ L 4.63-6.08 HEMOGLOBIN (BEAKER) (test gkku=248) 12.2 GM/DL 13.7-17.5 HEMATOCRIT (BEAKER) (test ubyi=279) 35.5 % 40.1-51.0 MEAN CORPUSCULAR VOLUME (BEAKER) (test tazh=715) 87.4 fL 79.0-92.2 MEAN CORPUSCULAR HEMOGLOBIN (BEAKER) (test 30.0 pg 25.7-32.2 pdch=422) MEAN CORPUSCULAR HEMOGLOBIN CONC (BEAKER) (test 34.4 GM/DL 32.3-36.5 zrrt=522) RED CELL DISTRIBUTION WIDTH (BEAKER) (test 12.4 % 11.6-14.4 eppl=742) PLATELET COUNT (BEAKER) (test zksd=951) 127 K/CU MM 150-450 MEAN PLATELET VOLUME (BEAKER) (test dxxl=188) 11.5 fL 9.4-12.4 NUCLEATED RED BLOOD CELLS (BEAKER) (test 0 /100 WBC 0-0 agmo=540) NEUTROPHILS RELATIVE PERCENT (BEAKER) (test 80 % gssy=274) LYMPHOCYTES RELATIVE PERCENT (BEAKER) (test 12 % zcdo=262) MONOCYTES RELATIVE PERCENT (BEAKER) (test 7 % tjzp=662) EOSINOPHILS RELATIVE PERCENT (BEAKER) (test 0 % kepo=396) BASOPHILS RELATIVE PERCENT (BEAKER) (test 0 % fcgl=545) NEUTROPHILS ABSOLUTE COUNT (BEAKER) (test 8.23 K/ L 1.78-5.38 gvlj=150) LYMPHOCYTES ABSOLUTE COUNT (BEAKER) (test 1.25 K/ L 1.32-3.57 zlqi=778) MONOCYTES ABSOLUTE COUNT (BEAKER) (test 0.74 K/ L 0.30-0.82 zffj=380) EOSINOPHILS ABSOLUTE COUNT (BEAKER) (test 0.01 K/ L 0.04-0.54 yvgr=012) BASOPHILS ABSOLUTE COUNT (BEAKER) (test 0.02 K/ L 0.01-0.08 uned=184) IMMATURE GRANULOCYTES-RELATIVE PERCENT (BEAKER) 0 % 0-1 (test kzzn=4173) POCT-GLUCOSE [id number] 23:20:00 Test Item Value Reference Range Comments POC-GLUCOSE METER (BEAKER) 262 mg/dL 70-110 TESTED AT [address] (test cexe=1185) [facility] [address] RAD, CHEST, 1 VIEW, NON [id number] 22:50:00Reason for exam:->Verfiy central line Should this [...] MDReport Verified Date/Time: 07/29/2017 22:50:59 Reading Location: [facility] [id number] Ortho Consult Reading Room TROPONIN [id number] 21:46:00 Test Item Value Reference Range Comments TROPONIN I (BEAKER) (test aaqh=076) 27.18 ng/mL 0.00-0.03 Troponin I (TnI) levels [...] acidosis, acute neurological disease, and persistent tachyarrhythmia.HEMOGLOBIN [id number] 21:42:00 Test Item Value Reference Range Comments HEMOGLOBIN A1C (BEAKER) (test hbiw=440) 12.0 % 4.3-6.1 POCT-GLUCOSE [id number] 21:01:00 Test Item Value Reference Range Comments POC-GLUCOSE METER (BEAKER) 249 mg/dL 70-110 TESTED AT [address] (test nuaj=9312) [place] [address] POCT-GLUCOSE [id number] 17:57:00 Test Item Value Reference Range Comments POC-GLUCOSE METER (BEAKER) 268 mg/dL 70-110 TESTED AT [address] (test etlj=6790) [place] [address] PLATELET AGGREGATION: FUNCTION [id number] 17:11:00 Test Item Value Reference Range Comments WEAK ADP RESULT(BEAKER) (test 100 % 60-91 kvxo=1083) PLATELET FUNCTION SCREEN 60-100% indicates normal INTERP (BEAKER) (test platelet function jfdq=5357) [id number] (BEAKER) Demar Arteaga MD (electronic (test hdvt=5546) signature) PLATELET COUNT AGG (BEAKER) 149 K/CU MM 150-450 (test vdni=6776) TROPONIN [id number] 14:50:00 Test Item Value Reference Range Comments TROPONIN I (BEAKER) (test tfuz=100) 32.64 ng/mL 0.00-0.03 Troponin I (TnI) levels [...] neurological disease, and persistent tachyarrhythmia.TSH/FREE T4 IF [id number] 14:34 :00 Test Item Value Reference Range Comments THYROID STIMULATING HORMONE (BEAKER) (test 0.62 uIU/mL 0.35-4.94 hvxa=540) [id number] 14:02:00 Test Item Value Reference Range Comments POTASSIUM (BEAKER) (test ejgy=213) 3.8 meq/L 3.5-5.1 [id number] 12:50:00 Test Item Value Reference Range Comments PARTIAL THROMBOPLASTIN TIME (BEAKER) (test 53.8 seconds 22.5-36.0 pmrk=895) POCT-GLUCOSE [id number] 12:02:00 Test Item Value Reference Range Comments POC-GLUCOSE METER (BEAKER) 225 mg/dL 70-110 TESTED AT [address] (test qbdf=6353) [place] [address] RAD, CHEST, 1 VIEW, NON [id number] 10:25:00Reason for exam:->IABPShould this be performed at the bedside?->YesFINAL REPORT Chest one view compared to July 28, 2017 Discussion: IABP marker is at the aortic knob. Bilateral interstitial opacities are similar. No effusion or pneumothorax. Signed: Jaida Terrazas Verified Date/Time: 07/29/2017 10: 25:37 Reading Location: [facility] Radiology Reading Room POCT- GLUCOSE [id number] 08:23:00 Test Item Value Reference Range Comments POC-GLUCOSE METER (BEAKER) 229 mg/dL 70-110 TESTED AT [address] (test vdde=4452) [place] [address] POCT-GLUCOSE [id number] 06:48:00 Test Item Value Reference Range Comments POC-GLUCOSE METER (BEAKER) 204 mg/dL 70-110 TESTED AT [address] (test rrni=0452) [place] [address] CBC W/PLT COUNT & AUTO [id number] 05:33:00 Test Item Value Reference Range Comments WHITE BLOOD CELL COUNT (BEAKER) (test ydpm=177) 13.1 K/ L 3.5-10.5 RED BLOOD CELL COUNT (BEAKER) (test ngsl=734) 4.43 M/ L 4.63-6.08 HEMOGLOBIN (BEAKER) (test xxaf=569) 13.4 GM/DL 13.7-17.5 HEMATOCRIT (BEAKER) (test mthh=586) 38.9 % 40.1-51.0 MEAN CORPUSCULAR VOLUME (BEAKER) (test leqt=334) 87.8 fL 79.0-92.2 MEAN CORPUSCULAR HEMOGLOBIN (BEAKER) (test 30.2 pg 25.7-32.2 ljta=754) MEAN CORPUSCULAR HEMOGLOBIN CONC (BEAKER) (test 34.4 GM/DL 32.3-36.5 qcjd=489) RED CELL DISTRIBUTION WIDTH (BEAKER) (test 12.4 % 11.6-14.4 kvqf=582) PLATELET COUNT (BEAKER) (test hnhq=443) 144 K/CU MM 150-450 MEAN PLATELET VOLUME (BEAKER) (test bfin=790) 12.7 fL 9.4-12.4 NUCLEATED RED BLOOD CELLS (BEAKER) (test 0 /100 WBC 0-0 rwng=378) NEUTROPHILS RELATIVE PERCENT (BEAKER) (test 85 % arpr=676) LYMPHOCYTES RELATIVE PERCENT (BEAKER) (test 9 % ccvz=205) MONOCYTES RELATIVE PERCENT (BEAKER) (test 6 % uyeq=797) EOSINOPHILS RELATIVE PERCENT (BEAKER) (test 0 % insc=863) BASOPHILS RELATIVE PERCENT (BEAKER) (test 0 % jpxl=565) NEUTROPHILS ABSOLUTE COUNT (BEAKER) (test 11.10 K/ L 1.78-5.38 dcdb=094) LYMPHOCYTES ABSOLUTE COUNT (BEAKER) (test 1.12 K/ L 1.32-3.57 fqgu=427) MONOCYTES ABSOLUTE COUNT (BEAKER) (test 0.76 K/ L 0.30-0.82 jage=777) EOSINOPHILS ABSOLUTE COUNT (BEAKER) (test 0.00 K/ L 0.04-0.54 rpsy=644) BASOPHILS ABSOLUTE COUNT (BEAKER) (test 0.02 K/ L 0.01-0.08 ccsv=040) IMMATURE GRANULOCYTES-RELATIVE PERCENT (BEAKER) 0 % 0-1 (test qkjy=6404) [id number] 05:15:00 Test Item Value Reference Range Comments MAGNESIUM (BEAKER) (test nrwr=547) 2.4 mg/dL 1.6-2.6 BASIC METABOLIC [id number] 05:15:00 Test Item Value Reference Range Comments SODIUM (BEAKER) (test 135 meq/L 136-145 fpll=712) POTASSIUM (BEAKER) (test 3.9 meq/L 3.5-5.1 bxen=231) CHLORIDE (BEAKER) (test 99 meq/L 98-107 xulm=641) CO2 (BEAKER) (test 26 meq/L 22-29 kvxa=093) BLOOD UREA NITROGEN 25 mg/dL 7-21 (BEAKER) (test plnl=558) CREATININE (BEAKER) (test 1.17 mg/dL 0.57-1.25 klid=879) GLUCOSE RANDOM (BEAKER) 241 mg/dL 70-105 (test urea=704) CALCIUM (BEAKER) (test 8.8 mg/dL 8.4-10.2 jemm=991) EGFR (BEAKER) (test 64 mL/min/1.73 sq m ESTIMATED GFR IS NOT gdhc=8298) ACCURATE CREATININE CLEARANCE IN PREDICTING GLOMERULAR FILTRATION RATE. ESTIMATED GFR IS NOT APPLICABLE FOR DIALYSIS PATIENTS. LIPID [id number] 05:15:00 Test Item Value Reference Range Comments TRIGLYCERIDES (BEAKER) (test expt=899) 152 mg/dL CHOLESTEROL (BEAKER) (test utdf=663) 188 mg/dL HDL CHOLESTEROL (BEAKER) (test tyor=948) 31 mg/dL LDL CHOLESTEROL CALCULATED (BEAKER) (test 127 mg/dL zhom=813) Triglyceride Reference Range: Low Risk <150 Borderline 150- 199 High Risk 200-499 Very High Risk >=500Cholesterol Reference Range: Low Risk <200 Borderline 200-239 High Risk > 240HDL Cholesterol Reference Range: Low Risk >=60 High Risk <40LDL Cholesterol Reference Range: Optimal <100 Near Optimal 100-129 Borderline 130-159 High 160-189 Very High >=[id number] 05:05:00 Test Item Value Reference Range Comments PARTIAL THROMBOPLASTIN TIME (BEAKER) (test 53.8 seconds 22.5-36.0 vqvk=847) [id number] 22:36:00 Test Item Value Reference Range Comments MAGNESIUM (BEAKER) (test vhbr=968) 1.8 mg/dL 1.6-2.6 BASIC METABOLIC [id number] 22:36:00 Test Item Value Reference Range Comments SODIUM (BEAKER) (test 136 meq/L 136-145 eyfl=492) POTASSIUM (BEAKER) (test 4.1 meq/L 3.5-5.1 enxj=267) CHLORIDE (BEAKER) (test 99 meq/L 98-107 geqn=869) CO2 (BEAKER) (test 29 meq/L 22-29 ajlx=287) BLOOD UREA NITROGEN 27 mg/dL 7-21 (BEAKER) (test jdvb=534) CREATININE (BEAKER) (test 1.31 mg/dL 0.57-1.25 skgi=775) GLUCOSE RANDOM (BEAKER) 242 mg/dL 70-105 (test zcvi=067) CALCIUM (BEAKER) (test 8.9 mg/dL 8.4-10.2 yepp=234) EGFR (BEAKER) (test 56 mL/min/1.73 sq m ESTIMATED GFR IS NOT ccuv=2348) ACCURATE CREATININE CLEARANCE IN PREDICTING GLOMERULAR FILTRATION RATE. ESTIMATED GFR IS NOT APPLICABLE FOR DIALYSIS PATIENTS. RAD, CHEST, 1 VIEW, NON [id number] 22:14:00While IABP in place and following each [...] MDReport Verified Date/Time: 08/2017 22:14:48 Reading Location: [address] Reading Room Electronically signed by: KENDRICK ROMAN M.D.on 07/28/2017 10:14 PMPOCT- GLUCOSE [id number] 22:01:00 Test Item Value Reference Range Comments POC-GLUCOSE METER (BEAKER) 238 mg/dL 70-110 TESTED AT [address] (test etjs=7638) [facility] [address] [id number] 21:15:00 Test Item Value Reference Range Comments PARTIAL THROMBOPLASTIN TIME (BEAKER) (test 80.4 seconds 22.5-36.0 lhir=884) Prior to initiating heparinCBC (HEMOGRAM ONLY)2017-07-28 21:05:00 Test Item Value Reference Range Comments WHITE BLOOD CELL COUNT (BEAKER) (test ndqq=552) 9.9 K/ L 3.5-10.5 RED BLOOD CELL COUNT (BEAKER) (test wnov=700) 4.72 M/ L 4.63-6.08 HEMOGLOBIN (BEAKER) (test mzib=808) 14.2 GM/DL 13.7-17.5 HEMATOCRIT (BEAKER) (test xkwg=931) 41.7 % 40.1-51.0 MEAN CORPUSCULAR VOLUME (BEAKER) (test xums=765) 88.3 fL 79.0-92.2 MEAN CORPUSCULAR HEMOGLOBIN (BEAKER) (test 30.1 pg 25.7-32.2 apse=183) MEAN CORPUSCULAR HEMOGLOBIN CONC (BEAKER) (test 34.1 GM/DL 32.3-36.5 zzeb=321) RED CELL DISTRIBUTION WIDTH (BEAKER) (test 12.5 % 11.6-14.4 htax=394) PLATELET COUNT (BEAKER) (test sgko=168) 169 K/CU MM 150-450 MEAN PLATELET VOLUME (BEAKER) (test zrme=084) 11.9 fL 9.4-12.4 NUCLEATED RED BLOOD CELLS (BEAKER) (test 0 /100 WBC 0-0 jxvv=243) [id number] 19:52:00 Test Item Value Reference Range Comments ACTIVATED CLOTTING TIME 323 sec TESTED AT [place] [id number] [facility] (BEAKER) (test tckz=122) [place] [id number]
[2019-03-09] MEDS ORDERED: BALANCED SALT IRRIG PLAIN 500 ML BTL IRR ONE (09:16)
[2019-03-09] MEDS ORDERED: EPINEPHRINE/PF 1 MG/ML AMP ONE (09:16)
[2019-03-09] MEDS ORDERED: NS 0.9% VIAL 10 ML ONE (09:16)
[2019-03-09] MEDS ORDERED: DUOVISC 1 KIT OPTH ONE (09:17)
[2019-03-09] MEDS ORDERED: MOXIFLOXACIN HCL 10 DROPS/ML **OR USE OPTH ONE (09:18)
[2019-03-09] MEDS ORDERED: NA CHLORIDE 0.9% 500 ML ONE (09:25)
[2019-03-09] MEDS: TETRACAINE HCL 0.5% 4ML OPTH ONE ×2 (09:27→10:39)
[2019-03-09] MEDS: BUPIVACAINE 0.25% PF 10 ML VIAL ONE ×2 (09:28→10:40)
[2019-03-09] MEDS: LIDOCAINE 2% MPF 5 ML VIAL ONE ×2 (09:28→10:40)
[2019-03-09] MEDS: PHENYLEPHRINE 10% OPTH 5ML ONE ×3 (09:30→09:40)
[2019-03-09] MEDS: CYCLOPENTOLATE 1% OPTH 2 ML ONE ×3 (09:30→09:40)
[2019-03-09] MEDS ORDERED: LIDOCAINE 1% MPF 5 ML VIAL ONE (10:49)
[2019-03-09] MEDS ORDERED: PROPOFOL 200 MG/20 ML VIAL IV ONE (10:50)
--- NOTE | 2019-03-09 11:25 | P.BOP ---
Preoperative diagnosis: Nuclear sclerotic and posterior subcapsular cataract OS Postoperative diagnosis: Same Primary procedure: Phacoemulsification with IOL OS Estimated blood loss: None Anesthesia: Local (Subtenon's infusion with anesthesia for cataract surgery) Complications: None Implants: ZCB00 +23.0 Transferred to: Other (Day surgery) Condition: Good
--- NOTE | 2019-03-09 22:44 | OP ---
Surgeon: Mehreen Perera MD Anesthesiologist: 1. Marek Dhillon CRNA. 2. Jaya Chinchilla MD. Preoperative Diagnosis: Nuclear sclerotic and posterior subcapsular cataract, left eye. Operation Performed: Phacoemulsification with intraocular lens implant, left eye. Anesthesia: Per cataract surgery. Complications: None. Description Of Procedure: In day surgery, the patient was prepped with Betadine and draped. A conju nctival incision was made in the inferior nasal quadrant with Brian scissors. A sub-Tenon block c onsisting of a 1:1 mixture of 2% Xylocaine and 0.25% bupivacaine was placed through the conjunctival incision with a blunt cannula. A Honan balloon was placed over the eye and the patient was transferr ed to the operating room. In the operating room the patient was prepped and draped in the usual sterile fashion for ophthalmic surgery. A lid speculum was placed in the left eye. Two paracentesis sites were made superiorly and inferiorly in the limbal cornea. Viscoat was placed in the anterior chamber and a crescent blade wa s used to make a corneal groove and tunnel, and a keratome was used to enter the anterior chamber. P rovisc was placed in the anterior chamber and a 360 degree capsulotomy was performed with a cystitome . The lens was hydrodissected with BSS and rotated freely. The lens was removed with a stop and cho p technique. 4.16 phaco CDE was used to remove the lens. Residual cortex was removed with the irrig ation and aspiration. Provisc was placed in the capsular bag. A ZCB00 +23.0 lens was placed in the capsular bag without complications. Irrigation and aspiration was used to remove residual viscoelast ic. The paracentesis sites were hydrated with BSS. The wound and paracentesis sites were inspected and found to be watertight. Vigamox 0.07 cc was placed intracamerally at the end of the procedure. The eye was irrigated with balanced salt solution. The eye was patched with a soft cotton patch and Hagen metal shield. The patient was returned to day surgery in good condition. Comments: The lens was hydrodelineated rather than hydrodissected. Discharge Instructions: Mr. Gore was discharged to home in good condition and is to follow up with Dr. Perera in the morning. PERRY/MARIANNE Voice ID: [id number] Report ID: [id number]
== END 2019-03-09 12:00 | disposition home or self-care (01) ==
LOC: OR 08:50
PROVIDERS: ATTEND Ophthalmology Retina Specialist
PROC: 08RK3JZ Replacement of Left Lens with Synthetic Substitute, Percutaneous Approach (ICD-10-PCS; principal; 2019-03-09 10:00)
DX: H25.12 Age-related nuclear cataract, left eye (principal); H25.042 Posterior subcapsular polar age-related cataract, left eye; E11.9 Type 2 diabetes mellitus without complications; E03.9 Hypothyroidism, unspecified; E78.00 Pure hypercholesterolemia, unspecified; I25.2 Old myocardial infarction; Z79.82 Long term (current) use of aspirin; Z79.4 Long term (current) use of insulin; Z79.899 Other long term (current) drug therapy; Z95.1 Presence of aortocoronary bypass graft; Z95.5 Presence of coronary angioplasty implant and graft
CPT/HCPCS: 82962; J0171; J2704

== ENCOUNTER 2022-05-07 09:25 | Emergency (ER) | payer BC, OTHER ==
--- OUTSIDE RECORDS SUMMARY | 2022-05-07 09:33 | XMS REPORT | Continuity of Care Document ---
:1960 Author Organization [facility] t Address [address] [place] [address] Care Team Providers Name Role Phone PADMINI Attending Clinician Unavailable Roxana PAGE Attending Clinician Unavailable Roxana PAGE Admitting Clinician Unavailable Problems This patient has no known problems. Allergies, Adverse Reactions, Alerts This patient has no known allergies or adverse reactions. Medications This patient has no known medications. Procedures This patient has no known procedures. Results Test Description Test Time Test Comments Results Result Comments Source POCT-ACT 2017-10-08 03:05:00 Test Item Value Reference Range Interpretation Comme nts ACTIVATED CLOTTING TIME (BEAKER) (test 120 sec TESTED AT [facility] [address] [facility] code = 441) [facility] 7703 0 B-TYPE NATRIURETIC FACTOR (BNP)2017-08-16 10:44:00 Test Item Value Reference Range Interpretation Comments B-TYPE NATRIURETIC PEPTIDE (BEAKER) 456 pg/mL 0-100 H (test code = 700) [id number] 10:36:00 Test Item Value Reference Range Interpretation Comments MAGNESIUM (BEAKER) (test code = 2.0 mg/dL 1.6-2.6 627) BASIC METABOLIC [id number] 10:36:00 Test Item Value Reference Range Interpretation Comments SODIUM (BEAKER) 135 meq/L 136-145 L (test code = 381) POTASSIUM (BEAKER) 5.1 meq/L 3.5-5.1 (test code = 379) CHLORIDE (BEAKER) 100 meq/L 98-107 (test code = 382) CO2 (BEAKER) (test 27 meq/L - code = 355) BLOOD UREA NITROGEN 26 mg/dL 7-21 H (BEAKER) (test code = 354) CREATININE (BEAKER) 1.06 mg/dL 0.57-1.25 (test code = 358) GLUCOSE RANDOM 175 mg/dL 70-105 H (BEAKER) (test code = 652) CALCIUM (BEAKER) 9.5 mg/dL 8.4-10.2 (test code = 697) EGFR (BEAKER) (test 72 mL/min/1.73 ESTIMA FINA GFR IS code = 1092) sq m NOT ACCURATE CREATININE CLEARANCE IN PREDICTING GLOMERULAR FILTRATION RATE . ESTIMATED GFR I S NOT APPLICABLE FOR DIALYSIS PATIEN TS. POCT-GLUCOSE [id number] 13:51:00 Test Item Value Reference Range Interpretation Comments POC-GLUCOSE METER 272 mg/dL 70-110 H TESTED AT [facility] 6720 (BEAKER) (test code = [facility] 1538) [address] POCT-GLUCOSE [id number] 08:46:00 Test Item Value Reference Range Interpretation Comments POC-GLUCOSE METER 205 mg/dL 70-110 H TESTED AT [facility] 6720 (BEAKER) (test code = [facility] 1538) [address] BASIC METABOLIC [id number] 07:46:00 Test Item Value Reference Range Interpretation Comments SODIUM (BEAKER) 136 meq/L 136-145 (test code = 381) POTASSIUM (BEAKER) 4.2 meq/L 3.5-5.1 (test code = 379) CHLORIDE (BEAKER) 98 meq/L 98-107 (test code = 382) CO2 (BEAKER) (test 32 meq/L 22-29 H code = 355) BLOOD UREA NITROGEN 12 mg/dL 7-21 (BEAKER) (test code = 354) CREATININE (BEAKER) 0.90 mg/dL 0.57-1.25 (test code = 358) GLUCOSE RANDOM 152 mg/dL 70-105 H (BEAKER) (test code = 652) CALCIUM (BEAKER) 8.6 mg/dL 8.4-10.2 (test code = 697) EGFR (BEAKER) (test 87 mL/min/1.73 ESTIMA FINA GFR IS code = 1092) sq m NOT ACCURATE CREATININE CLEARANCE IN PREDICTING GLOMERULAR FILTRATION RATE . ESTIMATED GFR I S NOT APPLICABLE FOR DIALYSIS PATIEN TS. CBC W/PLT COUNT & AUTO [id number] 07:19:00 Test Item Value Reference Range Interpretation Comments WHITE BLOOD CELL COUNT (BEAKER) 4.6 K/ L 3.5-10.5 (test code = 775) RED BLOOD CELL COUNT (BEAKER) 2.91 M/ L 4.63-6.08 L (test code = 761) HEMOGLOBIN (BEAKER) (test code = 8.4 GM/DL 13.7-17.5 L 410) HEMATOCRIT (BEAKER) (test code = 26.5 % 40.1-51.0 L 411) MEAN CORPUSCULAR VOLUME (BEAKER) 91.1 fL 79.0-92.2 (test code = 753) MEAN CORPUSCULAR HEMOGLOBIN 28.9 pg 25.7-32.2 (BEAKER) (test code = 751) MEAN CORPUSCULAR HEMOGLOBIN CONC 31.7 GM/DL 32.3-36.5 L (BEAKER) (test code = 752) RED CELL DISTRIBUTION WIDTH 13.8 % 11.6-14.4 (BEAKER) (test code = 412) PLATELET COUNT (BEAKER) (test 166 K/CU MM 150-450 code = 756) MEAN PLATELET VOLUME (BEAKER) 11.1 fL 9.4-12.4 (test code = 754) NUCLEATED RED BLOOD CELLS 0 /100 WBC 0-0 (BEAKER) (test code = 413) NEUTROPHILS RELATIVE PERCENT 62 % (BEAKER) (test code = 429) LYMPHOCYTES RELATIVE PERCENT 24 % (BEAKER) (test code = 430) MONOCYTES RELATIVE PERCENT 10 % (BEAKER) (test code = 431) EOSINOPHILS RELATIVE PERCENT 3 % (BEAKER) (test code = 432) BASOPHILS RELATIVE PERCENT 1 % (BEAKER) (test code = 437) NEUTROPHILS ABSOLUTE COUNT 2.86 K/ L 1.78-5.38 (BEAKER) (test code = 670) LYMPHOCYTES ABSOLUTE COUNT 1.08 K/ L 1.32-3.57 L (BEAKER) (test code = 414) MONOCYTES ABSOLUTE COUNT (BEAKER) 0.46 K/ L 0.30-0.82 (test code = 415) EOSINOPHILS ABSOLUTE COUNT 0.12 K/ L 0.04-0.54 (BEAKER) (test code = 416) BASOPHILS ABSOLUTE COUNT (BEAKER) 0.03 K/ L 0.01-0.08 (test code = 417) IMMATURE GRANULOCYTES-RELATIVE 1 % 0-1 PERCENT (BEAKER) (test code = 2801) POCT-GLUCOSE [id number] 21:01:00 Test Item Value Reference Range Interpretation Comments POC-GLUCOSE METER 189 mg/dL 70-110 H TESTED AT [place] [address] ([facility]) (test code = NURIS Antony [facility] 1538) [address] POCT-GLUCOSE [id number] 17:30:00 Test Item Value Reference Range Interpretation Comments POC-GLUCOSE METER 260 mg/dL 70-110 H TESTED AT [place] [address] ([facility]) (test code = NURIS Antony [facility] 1538) [address] POCT-GLUCOSE [id number] 12:53:00 Test Item Value Reference Range Interpretation Comments POC-GLUCOSE METER 322 mg/dL 70-110 H TESTED AT [place] [address] ([facility]) (test code = NURIS Anton[facility] 1538) [address] RAD, CHEST, 1 VIEW, NON [id number] 07:53:00Reason for exam:->acute pulmonary edema, aggressive diuresis [...] Acharya Verified Date/Time: 08/08/2017 07:53:05 Reading Location: [facility] Diagnostic Imaging Reading Room - [place] [address] POCT-GLUCOSE [id number] 07:40:00 Test Item Value Reference Range Interpretation Comments POC-GLUCOSE METER 248 mg/dL 70-110 H TESTED AT [facility] 67 ([facility]) (test code = NURIS Antony [facility] 1538) [address] BASIC METABOLIC [id number] 03:58:00 Test Item Value Reference Range Interpretation Comments SODIUM (BEAKER) 134 meq/L 136-145 L (test code = 381) POTASSIUM (BEAKER) 3.9 meq/L 3.5-5.1 (test code = 379) CHLORIDE (BEAKER) 96 meq/L 98-107 L (test code = 382) CO2 (BEAKER) (test 29 meq/L 22-29 code = 355) BLOOD UREA NITROGEN 16 mg/dL 7-21 (BEAKER) (test code = 354) CREATININE (BEAKER) 1.01 mg/dL 0.57-1.25 (test code = 358) GLUCOSE RANDOM 214 mg/dL 70-105 H (BEAKER) (test code = 652) CALCIUM (BEAKER) 8.3 mg/dL 8.4-10.2 L (test code = 697) EGFR (BEAKER) (test 76 mL/min/1.73 ESTIMA FINA GFR IS code = 1092) sq m NOT ACCURATE CREATININE CLEARANCE IN PREDICTING GLOMERULAR FILTRATION RATE . ESTIMATED GFR I S NOT APPLICABLE FOR DIALYSIS PATIEN TS. CBC W/PLT COUNT & AUTO [id number] 03:46:00 Test Item Value Reference Range Interpretation Comments WHITE BLOOD CELL COUNT (BEAKER) 5.3 K/ L 3.5-10.5 (test code = 775) RED BLOOD CELL COUNT (BEAKER) 2.80 M/ L 4.63-6.08 L (test code = 761) HEMOGLOBIN (BEAKER) (test code = 8.1 GM/DL 13.7-17.5 L 410) HEMATOCRIT (BEAKER) (test code = 25.3 % 40.1-51.0 L 411) MEAN CORPUSCULAR VOLUME (BEAKER) 90.4 fL 79.0-92.2 (test code = 753) MEAN CORPUSCULAR HEMOGLOBIN 28.9 pg 25.7-32.2 (BEAKER) (test code = 751) MEAN CORPUSCULAR HEMOGLOBIN CONC 32.0 GM/DL 32.3-36.5 L (BEAKER) (test code = 752) RED CELL DISTRIBUTION WIDTH 13.3 % 11.6-14.4 (BEAKER) (test code = 412) PLATELET COUNT (BEAKER) (test 160 K/CU MM 150-450 code = 756) MEAN PLATELET VOLUME (BEAKER) 10.6 fL 9.4-12.4 (test code = 754) NUCLEATED RED BLOOD CELLS 0 /100 WBC 0-0 (BEAKER) (test code = 413) NEUTROPHILS RELATIVE PERCENT 67 % (BEAKER) (test code = 429) LYMPHOCYTES RELATIVE PERCENT 18 % (BEAKER) (test code = 430) MONOCYTES RELATIVE PERCENT 10 % (BEAKER) (test code = 431) EOSINOPHILS RELATIVE PERCENT 3 % (BEAKER) (test code = 432) BASOPHILS RELATIVE PERCENT 0 % (BEAKER) (test code = 437) NEUTROPHILS ABSOLUTE COUNT 3.54 K/ L 1.78-5.38 (BEAKER) (test code = 670) LYMPHOCYTES ABSOLUTE COUNT 0.94 K/ L 1.32-3.57 L (BEAKER) (test code = 414) MONOCYTES ABSOLUTE COUNT (BEAKER) 0.54 K/ L 0.30-0.82 (test code = 415) EOSINOPHILS ABSOLUTE COUNT 0.15 K/ L 0.04-0.54 (BEAKER) (test code = 416) BASOPHILS ABSOLUTE COUNT (BEAKER) 0.01 K/ L 0.01-0.08 (test code = 417) IMMATURE GRANULOCYTES-RELATIVE 2 % 0-1 H PERCENT (BEAKER) (test code = 2801) POCT-GLUCOSE [id number] 20:37:00 Test Item Value Reference Range Interpretation Comments POC-GLUCOSE METER 281 mg/dL 70-110 H TESTED AT [place] [address] ([facility]) (test code = [facility] 1538) [address] POCT-GLUCOSE [id number] 17:10:00 Test Item Value Reference Range Interpretation Comments POC-GLUCOSE METER 294 mg/dL 70-110 H TESTED AT [place] [address] ([facility]) (test code = [facility] 1538) [address] CBC W/PLT COUNT & AUTO [id number] 11:54:00 Test Item Value Reference Range Interpretation Comments WHITE BLOOD CELL COUNT (BEAKER) 7.0 K/ L 3.5-10.5 (test code = 775) RED BLOOD CELL COUNT (BEAKER) 2.77 M/ L 4.63-6.08 L (test code = 761) HEMOGLOBIN (BEAKER) (test code = 8.4 GM/DL 13.7-17.5 L 410) HEMATOCRIT (BEAKER) (test code = 24.7 % 40.1-51.0 L 411) MEAN CORPUSCULAR VOLUME (BEAKER) 89.2 fL 79.0-92.2 (test code = 753) MEAN CORPUSCULAR HEMOGLOBIN 30.3 pg 25.7-32.2 (BEAKER) (test code = 751) MEAN CORPUSCULAR HEMOGLOBIN CONC 34.0 GM/DL 32.3-36.5 (BEAKER) (test code = 752) RED CELL DISTRIBUTION WIDTH 13.1 % 11.6-14.4 (BEAKER) (test code = 412) PLATELET COUNT (BEAKER) (test 166 K/CU MM 150-450 code = 756) MEAN PLATELET VOLUME (BEAKER) 10.7 fL 9.4-12.4 (test code = 754) NUCLEATED RED BLOOD CELLS 0 /100 WBC 0-0 (BEAKER) (test code = 413) NEUTROPHILS RELATIVE PERCENT 66 % (BEAKER) (test code = 429) LYMPHOCYTES RELATIVE PERCENT 17 % (BEAKER) (test code = 430) MONOCYTES RELATIVE PERCENT 10 % (BEAKER) (test code = 431) EOSINOPHILS RELATIVE PERCENT 2 % (BEAKER) (test code = 432) BASOPHILS RELATIVE PERCENT 0 % (BEAKER) (test code = 437) NEUTROPHILS ABSOLUTE COUNT 4.61 K/ L 1.78-5.38 (BEAKER) (test code = 670) LYMPHOCYTES ABSOLUTE COUNT 1.16 K/ L 1.32-3.57 L (BEAKER) (test code = 414) MONOCYTES ABSOLUTE COUNT (BEAKER) 0.68 K/ L 0.30-0.82 (test code = 415) EOSINOPHILS ABSOLUTE COUNT 0.16 K/ L 0.04-0.54 (BEAKER) (test code = 416) BASOPHILS ABSOLUTE COUNT (BEAKER) 0.02 K/ L 0.01-0.08 (test code = 417) IMMATURE GRANULOCYTES-RELATIVE 5 % 0-1 H PERCENT (BEAKER) (test code = 2801) (MANUAL DIFFERENTIAL)2017-08-07 11:54:00 Test Item Value Reference Range Interpretation Comments TOTAL COUNTED (BEAKER) (test code = 1351) WBC MORPHOLOGY (BEAKER) (test Normal code = 487) PLT MORPHOLOGY (BEAKER) (test Normal code = 486) ANISOCYTOSIS (BEAKER) (test code 1+ few = 961) POLYCHROMATOPHILLIC RBCS(BEAKER) 2+ moderate (test code = 478) TEAR DROP CELLS (BEAKER) (test 1+ few code = 481) RAD, CHEST, 1 VIEW, NON [id number] 10:23:00Reason for exam:->acute pulmonary edema, aggressive diuresis over 24hrs.Should this be performed at the bedside?->YesFINAL REPORT COMPARISON: 08/06/2017 TECHNIQUE: Single view of the chest FINDINGS: Mild bilateral interstitial opacities are stable. No large effusions or pneumothorax. Right-sided internal jugular central line has been removed. No other significant change. Signed: Gerson Krishnamurthy Verified Date/Time: 08/07/2017 10:23:55 Reading Location: [facility] Radiology Reading Room HEPATIC FUNCTION [id number] 09:31:00 Test Item Value Reference Range Interpretation Comments TOTAL PROTEIN (BEAKER) (test code = 6.0 gm/dL 6.0-8.3 770) ALBUMIN (BEAKER) (test code = 1145) 3.0 g/dL 3.5-5.0 L BILIRUBIN TOTAL (BEAKER) (test code 0.8 mg/dL 0.2-1.2 = 377) BILIRUBIN DIRECT (BEAKER) (test 0.4 mg/dL 0.1-0.5 code = 706) ALKALINE PHOSPHATASE (BEAKER) (test 69 U/L 40-150 code = 346) AST (SGOT) (BEAKER) (test code = 58 U/L 5-34 H 353) ALT (SGPT) (BEAKER) (test code = 430 U/L 6-55 H 347) POCT-GLUCOSE [id number] 08:08:00 Test Item Value Reference Range Interpretation Comments POC-GLUCOSE METER 220 mg/dL 70-110 H TESTED AT [facility] 6720 (BEAKER) (test code = [facility] [place] 1538) [address] BASIC METABOLIC [id number] 07:41:00 Test Item Value Reference Range Interpretation Comments SODIUM (BEAKER) 135 meq/L 136-145 L (test code = 381) POTASSIUM (BEAKER) 4.0 meq/L 3.5-5.1 (test code = 379) CHLORIDE (BEAKER) 96 meq/L 98-107 L (test code = 382) CO2 (BEAKER) (test 34 meq/L 22-29 H code = 355) BLOOD UREA NITROGEN 24 mg/dL 7-21 H (BEAKER) (test code = 354) CREATININE (BEAKER) 1.12 mg/dL 0.57-1.25 (test code = 358) GLUCOSE RANDOM 197 mg/dL 70-105 H (BEAKER) (test code = 652) CALCIUM (BEAKER) 8.1 mg/dL 8.4-10.2 L (test code = 697) EGFR (BEAKER) (test 67 mL/min/1.73 ESTIMA FINA GFR IS code = 1092) sq m NOT ACCURATE CREATININE CLEARANCE IN PREDICTING GLOMERULAR FILTRATION RATE . ESTIMATED GFR I S NOT APPLICABLE FOR DIALYSIS PATIEN TS. DIGOXIN [id number] 04:05:00 Test Item Value Reference Range Interpretation Comments DIGOXIN LEVEL (BEAKER) (test code = 0.5 ng/mL 0.8-2.0 L 669) BASIC METABOLIC [id number] 03:59:00 Test Item Value Reference Range Interpretation Comments SODIUM (BEAKER) 133 meq/L 136-145 L (test code = 381) POTASSIUM (BEAKER) 3.9 meq/L 3.5-5.1 (test code = 379) CHLORIDE (BEAKER) 94 meq/L 98-107 L (test code = 382) CO2 (BEAKER) (test 34 meq/L 22-29 H code = 355) BLOOD UREA NITROGEN 26 mg/dL 7-21 H (BEAKER) (test code = 354) CREATININE (BEAKER) 1.15 mg/dL 0.57-1.25 (test code = 358) GLUCOSE RANDOM 205 mg/dL 70-105 H (BEAKER) (test code = 652) CALCIUM (BEAKER) 8.0 mg/dL 8.4-10.2 L (test code = 697) EGFR (BEAKER) (test 65 mL/min/1.73 ESTIMA FINA GFR IS code = 1092) sq m NOT ACCURATE CREATININE CLEARANCE IN PREDICTING GLOMERULAR FILTRATION RATE . ESTIMATED GFR I S NOT APPLICABLE FOR DIALYSIS PATIEN TS. POCT-GLUCOSE [id number] 22:55:00 Test Item Value Reference Range Interpretation Comments POC-GLUCOSE METER 325 mg/dL 70-110 H Notified R Kathrine GATES/TESTED ([facility]) (test code = AT [facility] [address] POCT-GLUCOSE [id number] 19:37:00 Test Item Value Reference Range Interpretation Comments POC-GLUCOSE METER 246 mg/dL 70-110 H TESTED AT [place] [address] ([facility]) (test code = NURIS Antony [facility] 1538) [address] RAD, CHEST, 1 VIEW, NON [id number] 18:59:00Reason for exam:->PICC line placementFINAL REPORT INDICATION: [...] for median sternotomy wires. Signed: Enrike Miner Verified Date/Time: 08/06/2017 18:59:58 Reading Location: [facility] Consult Reading Room POCT-GLUCOSE [id number] 17:33:00 Test Item Value Reference Range Interpretation Comments POC-GLUCOSE METER 274 mg/dL 70-110 H TESTED AT [place] [address] ([facility]) (test code = NURIS Antony [facility] 1538) [address] POCT-GLUCOSE [id number] 17:12:00 Test Item Value Reference Range Interpretation Comments POC-GLUCOSE METER 223 mg/dL 70-110 H TESTED AT [place] [address] ([facility]) (test code = NURIS Antony [facility] 1538) [address] B-TYPE NATRIURETIC FACTOR (BNP)2017-08-06 15:08:00 Test Item Value Reference Range Interpretation Comments B-TYPE NATRIURETIC PEPTIDE 2043 pg/mL 0-100 H ([facility]) (test code = 700) [id number] 15:00:00 Test Item Value Reference Range Interpretation Comments POTASSIUM (KIRA) (test code = 3.9 meq/L 3.5-5.1 379) 8 hours after PO replacement completedPOCT-GLUCOSE [id number] 14:03:00 Test Item Value Reference Range Interpretation Comments POC-GLUCOSE METER 347 mg/dL 70-110 H Notified Cassia Chisholm MD/TESTED ([facility]) (test code = AT [address] 1538) [facility] 7[address] 0 POCT-GLUCOSE [id number] 13:08:00 Test Item Value Reference Range Interpretation Comments POC-GLUCOSE METER 359 mg/dL 70-110 H Notified Cassia Chisholm MD/TESTED ([facility]) (test code = AT [address] 1538) [facility] 7703 0 RAD, CHEST, 1 VIEW, NON [id number] 11:39:00Reason for exam:->acute pulmonary edema, aggressive diuresis over 24hrs.Should this be performed at the bedside?->YesFINAL REPORT Chest one view. Clinical history: acute pulmonary edema, aggressive diuresis over 24hrs. Comparison: 08/05/2017 Discussion: A frontal chest is provided. Right IJ line is in stable position. Unchanged cardiomediastinal contours. There is mild vascular congestion, improved from the previous study. Linear opacities at both mid to lower lungs likely reflect scarring oratelectasis, unchanged. No new consolidation. No pneumothorax, or large effusion. Signed: [facility] Verified Date/Time: 08/06/2017 11:39:35 Reading Location: [facility] Radiology Reading Room POCT-GLUCOSE [id number] 11:21:00 Test Item Value Reference Range Interpretation Comments POC-GLUCOSE METER 368 mg/dL 70-110 H TESTED AT [place] [id number] (KIRA) (test code = NURIS Antony [place] [id number]) [address] POCT-GLUCOSE [id number] 09:31:00 Test Item Value Reference Range Interpretation Comments POC-GLUCOSE METER 270 mg/dL 70-110 H TESTED AT [place] [address] (BEAKER) (test code = [facility] [place] 1538) [address] [id number] 08:45:00 Test Item Value Reference Range Interpretation Comments PARTIAL THROMBOPLASTIN TIME 45.7 seconds 22.5-36.0 H (BEAKER) (test code = 760) POCT-GLUCOSE [id number] 08:26:00 Test Item Value Reference Range Interpretation Comments POC-GLUCOSE METER 200 mg/dL 70-110 H TESTED AT [place] [address] ([facility]) (test code = NURIS Antony [facility] 1538) [address] (MANUAL DIFFERENTIAL)2017-08-06 08:22:00 Test Item Value Reference Range Interpretation Comments NEUTROPHILS - REL (DIFF) (BEAKER) 69 % (test code = 1359) LYMPHOCYTES - REL (DIFF) (BEAKER) 16 % (test code = 1360) MONOCYTES - REL (DIFF) (BEAKER) 7 % (test code = 1361) EOSINOPHILS - REL (DIFF) (BEAKER) 2 % (test code = 1362) METAMYELOCYTES-REL (DIFF) (BEAKER) 1 % 0-0 H (test code = 258) MYELOCYTES-REL (DIFF) (BEAKER) 3 % 0-0 H (test code = 1594) BANDS - REL (DIFF) (BEAKER) (test 2 % 0-10 code = 1348) NEUTROPHILS - ABS (DIFF) (BEAKER) 6.97 K/ L 1.80-8.00 (test code = 1365) LYMPHOCYTES - ABS (DIFF) (BEAKER) 1.62 K/ L 1.48-4.50 (test code = 1366) MONOCYTES - ABS (DIFF) (BEAKER) 0.71 K/ L 0.00-1.30 (test code = 1367) EOSINOPHILS - ABS (DIFF) (BEAKER) 0.20 K/ L 0.00-0.50 (test code = 1368) METAMYELOCTYES - ABS (DIFF) 0.10 K/ L 0.00-0.00 H (BEAKER) (test code = 261) BANDS-ABS (DIFF) (BEAKER) (test 0.2 K/ L 0.0-0.8 code = 1349) MYELOCYTES-ABS (DIFF) (BEAKER) 0.30 K/ L 0.00-0.00 H (test code = 1593) TOTAL COUNTED (BEAKER) (test code 100 = 1351) BANDS + SEGMENTED NEUTROPHILS 7.17 (BEAKER) (test code = 1352) MANUAL NRBC PER 100 CELLS (BEAKER) 1 /100 WBC 0-0 H (test code = 1353) WBC MORPHOLOGY (BEAKER) (test code Normal = 487) PLT MORPHOLOGY (BEAKER) (test code Normal = 486) ANISOCYTOSIS (BEAKER) (test code = 1+ few 961) POLYCHROMATOPHILLIC RBCS(BEAKER) 1+ few (test code = 478) CBC W/PLT COUNT & AUTO [id number] 08:18:00 Test Item Value Reference Range Interpretation Comments WHITE BLOOD CELL COUNT (BEAKER) 10.1 K/ L 3.5-10.5 (test code = 775) RED BLOOD CELL COUNT (BEAKER) 2.96 M/ L 4.63-6.08 L (test code = 761) HEMOGLOBIN (BEAKER) (test code = 8.8 GM/DL 13.7-17.5 L 410) HEMATOCRIT (BEAKER) (test code = 25.9 % 40.1-51.0 L 411) MEAN CORPUSCULAR VOLUME (BEAKER) 87.5 fL 79.0-92.2 (test code = 753) MEAN CORPUSCULAR HEMOGLOBIN 29.7 pg 25.7-32.2 (BEAKER) (test code = 751) MEAN CORPUSCULAR HEMOGLOBIN CONC 34.0 GM/DL 32.3-36.5 (BEAKER) (test code = 752) RED CELL DISTRIBUTION WIDTH 12.8 % 11.6-14.4 (BEAKER) (test code = 412) PLATELET COUNT (BEAKER) (test 180 K/CU MM 150-450 code = 756) MEAN PLATELET VOLUME (BEAKER) 11.1 fL 9.4-12.4 (test code = 754) NUCLEATED RED BLOOD CELLS 0 /100 WBC 0-0 (BEAKER) (test code = 413) IMMATURE GRANULOCYTES-RELATIVE 8 % 0-1 H PERCENT (BEAKER) (test code = 2801) [id number] 06:55:00 Test Item Value Reference Range Interpretation Comments PARTIAL THROMBOPLASTIN TIME 110.4 seconds 22.5-36.0 H (BEAKER) (test code = 760) POCT-GLUCOSE [id number] 06:13:00 Test Item Value Reference Range Interpretation Comments POC-GLUCOSE METER 116 mg/dL 70-110 H TESTED AT [facility] 67 (BEBANNER) (test code = NURIS [facility] 1538) [address] POCT-GLUCOSE [id number] 05:14:00 Test Item Value Reference Range Interpretation Comments POC-GLUCOSE METER 97 mg/dL 70-110 TESTED AT [place] [address] ([facility]) (test code = [facility] [address] 1538) POCT-GLUCOSE [id number] 04:45:00 Test Item Value Reference Range Interpretation Comments POC-GLUCOSE METER 84 mg/dL 70-110 TESTED AT [place] [address] ([facility]) (test code = [facility] [address] 1538) HEPATITIS PANEL, [id number] 04:24:00 Test Item Value Reference Range Interpretation Comments HEPATITIS A IGM ANTIBODY (BEAKER) Nonreactive Nonreactive (test code = 498) HEPATITIS B CORE IGM ANTIBODY Nonreactive Nonreactive (BEAKER) (test code = 645) HEPATITIS C ANTIBODY (BEAKER) Nonreactive Nonreactive (test code = 367) HEPATITIS B SURFACE ANTIGEN (2) Nonreactive Nonreactive (BEAKER) (test code = 2585) BASIC METABOLIC [id number] 04:02:00 Test Item Value Reference Range Interpretation Comments SODIUM (BEAKER) 134 meq/L 136-145 L (test code = 381) POTASSIUM (BEAKER) 3.5 meq/L 3.5-5.1 (test code = 379) CHLORIDE (BEAKER) 95 meq/L 98-107 L (test code = 382) CO2 (BEAKER) (test 30 meq/L 22-29 H code = 355) BLOOD UREA NITROGEN 38 mg/dL 7-21 H (BEAKER) (test code = 354) CREATININE (BEAKER) 1.41 mg/dL 0.57-1.25 H (test code = 358) GLUCOSE RANDOM 89 mg/dL 70-105 (BEAKER) (test code = 652) CALCIUM (BEAKER) 7.6 mg/dL 8.4-10.2 L (test code = 697) EGFR (BEAKER) (test 52 mL/min/1.73 ESTIMA FINA GFR IS code = 1092) sq m NOT ACCURATE CREATININE CLEARANCE IN PREDICTING GLOMERULAR FILTRATION RATE . ESTIMATED GFR I S NOT APPLICABLE FOR DIALYSIS PATIEN TS. [id number] 04:00:00 Test Item Value Reference Range Interpretation Comments PHOSPHORUS (BEAKER) (test code = 3.0 mg/dL 2.3-4.7 604) [id number] 04:00:00 Test Item Value Reference Range Interpretation Comments MAGNESIUM (BEAKER) (test code = 2.1 mg/dL 1.6-2.6 627) LACTIC ACID, VENOUS, WHOLE [id number] 03:59:00 Test Item Value Reference Range Interpretation Comments LACTATE BLOOD VENOUS (2) ([facility]) 0.9 mmol/L 0.5-2.2 (test code = 2872) Effective 03/21/2016: Units/Reference Range ChangeNew: 0.5-2.2 mmol/L Previous: 5-20 mg/dLOXYGEN SATURATION, [id number] 03:47:00 Test Item Value Reference Range Interpretation Comments O2 SATURATION (MEASURED) ([facility]) 59.5 % (test code = 1455) Mixed venous from central line.POCT-GLUCOSE [id number] 03:16:00 Test Item Value Reference Range Interpretation Comments POC-GLUCOSE METER 112 mg/dL 70-110 H TESTED AT [place] [address] ([facility]) [facility] 1538[facility] [id number] POCT-GLUCOSE [id number] 02:12:00 Test Item Value Reference Range Interpretation Comments POC-GLUCOSE METER 121 mg/dL 70-110 H TESTED AT [place] [address] ([facility]) (test code = [facility] 1538) [address] POCT-GLUCOSE [id number] 01:16:00 Test Item Value Reference Range Interpretation Comments POC-GLUCOSE METER 141 mg/dL 70-110 H TESTED AT [place] [address] ([facility]) (test code = [facility] 1538) [address] POCT-GLUCOSE [id number] 00:01:00 Test Item Value Reference Range Interpretation Comments POC-GLUCOSE METER 198 mg/dL 70-110 H TESTED AT [place] [address] ([facility]) (test code = [facility] 1538) [address] BASIC METABOLIC [id number] 23:14:00 Test Item Value Reference Range Interpretation Comments SODIUM (BEAKER) 129 meq/L 136-145 L (test code = 381) POTASSIUM (BEAKER) 3.7 meq/L 3.5-5.1 (test code = 379) CHLORIDE (BEAKER) 93 meq/L 98-107 L (test code = 382) CO2 (BEAKER) (test 26 meq/L 22-29 code = 355) BLOOD UREA NITROGEN 40 mg/dL 7-21 H (BEAKER) (test code = 354) CREATININE (BEAKER) 1.47 mg/dL 0.57-1.25 H (test code = 358) GLUCOSE RANDOM 181 mg/dL 70-105 H (BEAKER) (test code = 652) CALCIUM (BEAKER) 7.2 mg/dL 8.4-10.2 L (test code = 697) EGFR (BEAKER) (test 49 mL/min/1.73 ESTIMA FINA GFR IS code = 1092) sq m NOT ACCURATE CREATININE CLEARANCE IN PREDICTING GLOMERULAR FILTRATION RATE . ESTIMATED GFR I S NOT APPLICABLE FOR DIALYSIS PATIEN TS. 8 hours after PO replacement [id number] 23:13:00 Test Item Value Reference Range Interpretation Comments POTASSIUM (BEAKER) (test code = 3.7 meq/L 3.5-5.1 379) 8 hours after PO replacement completedOXYGEN SATURATION, [id number] 22:50:00 Test Item Value Reference Range Interpretation Comments O2 SATURATION (MEASURED) (BEAKER) 51.9 % (test code = 1455) POCT-GLUCOSE [id number] 22:20:00 Test Item Value Reference Range Interpretation Comments POC-GLUCOSE METER 220 mg/dL 70-110 H TESTED AT [facility] 6720 ([place]) (test code = [place] 1538) [id number] 21:20:00 Test Item Value Reference Range Interpretation Comments PARTIAL THROMBOPLASTIN TIME 62.2 seconds 22.5-36.0 H (BEAKER) (test code = 760) POCT-GLUCOSE [id number] 20:47:00 Test Item Value Reference Range Interpretation Comments POC-GLUCOSE METER 209 mg/dL 70-110 H TESTED AT [facility] 6720 ([place]) (test code = [place] 1538) [address] POCT-GLUCOSE [id number] 19:51:00 Test Item Value Reference Range Interpretation Comments POC-GLUCOSE METER 176 mg/dL 70-110 H TESTED AT [place] [address] ([facility]) (test code = NURIS Antony [facility] 1538) [id number] 18:54:00 Test Item Value Reference Range Interpretation Comments POTASSIUM ([facility]) (test code = 3.4 meq/L 3.5-5.1 L 379) 8 hours after PO replacement completedPOCT-GLUCOSE [id number] 18:50:00 Test Item Value Reference Range Interpretation Comments POC-GLUCOSE METER 112 mg/dL 70-110 H TESTED AT [place] [address] ([facility]) (test code = NURIS [facility] [facility] 1538) [id number] 18:34:00 Test Item Value Reference Range Interpretation Comments PARTIAL THROMBOPLASTIN TIME 48.2 seconds 22.5-36.0 H ([facility]) (test code = 760) POCT-GLUCOSE [id number] 18:20:00 Test Item Value Reference Range Interpretation Comments POC-GLUCOSE METER 48 mg/dL 70-110 L Notified R Kathrine GATES/TESTED AT ([facility]) (test code = [place] [address] [place] [address]) [facility] 7[address] 0 POCT-GLUCOSE [id number] 12:35:00 Test Item Value Reference Range Interpretation Comments POC-GLUCOSE METER 117 mg/dL 70-110 H TESTED AT [place] [address] ([facility]) (test code = NURIS Antony [facility] 1538) [address] POCT-GLUCOSE [id number] 11:58:00 Test Item Value Reference Range Interpretation Comments POC-GLUCOSE METER 166 mg/dL 70-110 H TESTED AT [place] [address] ([facility]) (test code = NURIS Antony [facility] 1538) [address] POCT-GLUCOSE [id number] 11:58:00 Test Item Value Reference Range Interpretation Comments POC-GLUCOSE METER 197 mg/dL 70-110 H TESTED AT [place] [address] ([facility]) (test code = [facility] Cassia [facility] 1538) [address] BASIC METABOLIC [id number] 10:33:00 Test Item Value Reference Range Interpretation Comments SODIUM (BEAKER) 130 meq/L 136-145 L (test code = 381) POTASSIUM (BEAKER) 3.7 meq/L 3.5-5.1 (test code = 379) CHLORIDE (BEAKER) 91 meq/L 98-107 L (test code = 382) CO2 (BEAKER) (test 32 meq/L 22-29 H code = 355) BLOOD UREA NITROGEN 43 mg/dL 7-21 H (BEAKER) (test code = 354) CREATININE (BEAKER) 1.61 mg/dL 0.57-1.25 H (test code = 358) GLUCOSE RANDOM 168 mg/dL 70-105 H (BEAKER) (test code = 652) CALCIUM (BEAKER) 7.5 mg/dL 8.4-10.2 L (test code = 697) EGFR (BEAKER) (test 44 mL/min/1.73 ESTIMA FINA GFR IS code = 1092) sq m NOT ACCURATE CREATININE CLEARANCE IN PREDICTING GLOMERULAR FILTRATION RATE . ESTIMATED GFR I S NOT APPLICABLE FOR DIALYSIS PATIEN TS. POCT-GLUCOSE [id number] 09:38:00 Test Item Value Reference Range Interpretation Comments POC-GLUCOSE METER 198 mg/dL 70-110 H TESTED AT [facility] 6720 ([facility]) (test code = NURIS Antony [facility] 1538) [address] POCT-GLUCOSE [id number] 08:49:00 Test Item Value Reference Range Interpretation Comments POC-GLUCOSE METER 230 mg/dL 70-110 H TESTED AT [place] [address] ([facility]) (test code = [facility] Cassia [facility] 1538) [address] RAD, CHEST, 1 VIEW, NON [id number] 07:44:00Reason for exam:- >hypoxemiaShould this be performed at the bedside?->YesFINAL REPORT Chest one view compared to August 04 Discussion: There is bilateral pulmonary congestion with probable bilateral atelectasis. No gross effusion or pneumothorax. IMPRESSIONS: No change Signed: Jaida Terrazas Verified Date/Time: 08/05/2017 07:44:47 Reading Location: [facility] Radiology Reading Room Electronically signed by: JAIDA TERRAZAS M.D. on 0 08/05/2017 07:44 AMCBC W/PLT COUNT & AUTO [id number] 07:22:00 Test Item Value Reference Range Interpretation Comments WHITE BLOOD CELL COUNT (BEAKER) 11.1 K/ L 3.5-10.5 H (test code = 775) RED BLOOD CELL COUNT (BEAKER) 3.03 M/ L 4.63-6.08 L (test code = 761) HEMOGLOBIN (BEAKER) (test code = 9.1 GM/DL 13.7-17.5 L 410) HEMATOCRIT (BEAKER) (test code = 26.4 % 40.1-51.0 L 411) MEAN CORPUSCULAR VOLUME (BEAKER) 87.1 fL 79.0-92.2 (test code = 753) MEAN CORPUSCULAR HEMOGLOBIN 30.0 pg 25.7-32.2 (BEAKER) (test code = 751) MEAN CORPUSCULAR HEMOGLOBIN CONC 34.5 GM/DL 32.3-36.5 (BEAKER) (test code = 752) RED CELL DISTRIBUTION WIDTH 12.6 % 11.6-14.4 (BEAKER) (test code = 412) PLATELET COUNT (BEAKER) (test 195 K/CU MM 150-450 code = 756) MEAN PLATELET VOLUME (BEAKER) 11.6 fL 9.4-12.4 (test code = 754) NUCLEATED RED BLOOD CELLS 1 /100 WBC 0-0 H (BEAKER) (test code = 413) IMMATURE GRANULOCYTES-RELATIVE 8 % 0-1 H PERCENT (BEAKER) (test code = 2801) (MANUAL DIFFERENTIAL)2017-08-05 07:22:00 Test Item Value Reference Range Interpretation Comments NEUTROPHILS - REL (DIFF) (BEAKER) 64 % (test code = 1359) LYMPHOCYTES - REL (DIFF) (BEAKER) 15 % (test code = 1360) MONOCYTES - REL (DIFF) (BEAKER) 2 % (test code = 1361) EOSINOPHILS - REL (DIFF) (BEAKER) 1 % (test code = 1362) METAMYELOCYTES-REL (DIFF) (BEAKER) 2 % 0-0 H (test code = 258) BANDS - REL (DIFF) (BEAKER) (test 16 % 0-10 H code = 1348) NEUTROPHILS - ABS (DIFF) (BEAKER) 7.10 K/ L 1.80-8.00 (test code = 1365) LYMPHOCYTES - ABS (DIFF) (BEAKER) 1.67 K/ L 1.48-4.50 (test code = 1366) MONOCYTES - ABS (DIFF) (BEAKER) 0.22 K/ L 0.00-1.30 (test code = 1367) EOSINOPHILS - ABS (DIFF) (BEAKER) 0.11 K/ L 0.00-0.50 (test code = 1368) METAMYELOCTYES - ABS (DIFF) 0.22 K/ L 0.00-0.00 H (BEAKER) (test code = 261) BANDS-ABS (DIFF) (BEAKER) (test 1.8 K/ L 0.0-0.8 H code = 1349) TOTAL COUNTED (BEAKER) (test code 100 = 1351) BANDS + SEGMENTED NEUTROPHILS 8.88 (BEAKER) (test code = 1352) MANUAL NRBC PER 100 CELLS (BEAKER) 2 /100 WBC 0-0 H (test code = 1353) WBC MORPHOLOGY (BEAKER) (test code Normal = 487) PLT MORPHOLOGY (BEAKER) (test code Normal = 486) ANISOCYTOSIS (BEAKER) (test code = 1+ few 961) POLYCHROMATOPHILLIC RBCS(BEAKER) 1+ few (test code = 478) POCT-GLUCOSE [id number] 06:05:00 Test Item Value Reference Range Interpretation Comments POC-GLUCOSE METER 256 mg/dL 70-110 H TESTED AT [facility] 6720 (BEAKER) (test code = [place] 1538) [address] BASIC METABOLIC [id number] 04:34:00 Test Item Value Reference Range Interpretation Comments SODIUM (BEAKER) 128 meq/L 136-145 L (test code = 381) POTASSIUM (BEAKER) 4.2 meq/L 3.5-5.1 (test code = 379) CHLORIDE (BEAKER) 91 meq/L 98-107 L (test code = 382) CO2 (BEAKER) (test 28 meq/L 22-29 code = 355) BLOOD UREA NITROGEN 47 mg/dL 7-21 H (BEAKER) (test code = 354) CREATININE (BEAKER) 1.71 mg/dL 0.57-1.25 H (test code = 358) GLUCOSE RANDOM 245 mg/dL 70-105 H (BEAKER) (test code = 652) CALCIUM (BEAKER) 7.2 mg/dL 8.4-10.2 L (test code = 697) EGFR (BEAKER) (test 41 mL/min/1.73 ESTIMA FINA GFR IS code = 1092) sq m NOT ACCURATE CREATININE CLEARANCE IN PREDICTING GLOMERULAR FILTRATION RATE . ESTIMATED GFR I S NOT APPLICABLE FOR DIALYSIS PATIEN TS. [id number] 04:33:00 Test Item Value Reference Range Interpretation Comments PHOSPHORUS (BEAKER) (test code = 3.3 mg/dL 2.3-4.7 604) [id number] 04:33:00 Test Item Value Reference Range Interpretation Comments MAGNESIUM (BEAKER) (test code = 2.1 mg/dL 1.6-2.6 627) HEPATIC FUNCTION [id number] 04:33:00 Test Item Value Reference Range Interpretation Comments TOTAL PROTEIN (BEAKER) (test code = 5.3 gm/dL 6.0-8.3 L 770) ALBUMIN (BEAKER) (test code = 1145) 2.7 g/dL 3.5-5.0 L BILIRUBIN TOTAL (BEAKER) (test code 1.1 mg/dL 0.2-1.2 = 377) BILIRUBIN DIRECT (BEAKER) (test 0.5 mg/dL 0.1-0.5 code = 706) ALKALINE PHOSPHATASE (BEAKER) (test 74 U/L 40-150 code = 346) AST (SGOT) (BEAKER) (test code = 223 U/L 5-34 H 353) ALT (SGPT) (BEAKER) (test code = 933 U/L 6-55 H 347) LACTIC ACID, ARTERIAL, WHOLE [id number] 04:24:00 Test Item Value Reference Range Interpretation Comments LACTATE BLOOD ARTERIAL (2) 1.6 mmol/L 0.5-2.2 (BEAKER) (test code = 2874) Effective 03/21/2016: Units/Reference Range ChangeNew: 0.5-2.2 mmol/L Previous: 5-20 mg/[id number] 04:23:00 Test Item Value Reference Range Interpretation Comments PARTIAL THROMBOPLASTIN TIME 79.3 seconds 22.5-36.0 H (BEAKER) (test code = 760) OXYGEN SATURATION, [id number] 04:16:00 Test Item Value Reference Range Interpretation Comments O2 SATURATION (MEASURED) (BEAKER) 58.7 % (test code = 1455) Mixed venous from central line.POCT-GLUCOSE [id number] 03:03:00 Test Item Value Reference Range Interpretation Comments POC-GLUCOSE METER 260 mg/dL 70-110 H TESTED AT [place] [address] ([facility]) (test code = [facility] [place] 1538) [address] POCT-GLUCOSE [id number] 00:11:00 Test Item Value Reference Range Interpretation Comments POC-GLUCOSE METER 92 mg/dL 70-110 TESTED AT [place] [address] ([facility]) (test code = [facility] [address] 1538) POCT-GLUCOSE [id number] 23:46:00 Test Item Value Reference Range Interpretation Comments POC-GLUCOSE METER 91 mg/dL 70-110 TESTED AT [place] [address] ([facility]) (test code = [facility] [address] 1538) POCT-GLUCOSE [id number] 22:52:00 Test Item Value Reference Range Interpretation Comments POC-GLUCOSE METER 124 mg/dL 70-110 H TESTED AT [place] [address] ([facility]) (test code = [facility] [place] 1538) [address] [id number] 21:57:00 Test Item Value Reference Range Interpretation Comments POTASSIUM (BEAKER) (test code = 3.5 meq/L 3.5-5.1 379) 8 hours after PO replacement [id number] 21:57:00 Test Item Value Reference Range Interpretation Comments MAGNESIUM (BEAKER) (test code = 2.4 mg/dL 1.6-2.6 627) 8 hours after PO replacement completedPOCT-GLUCOSE [id number] 21:18:00 Test Item Value Reference Range Interpretation Comments POC-GLUCOSE METER 194 mg/dL 70-110 H TESTED AT [place] [address] ([facility]) (test code = [facility] [place] 1538) [address] BASIC METABOLIC [id number] 17:29:00 Test Item Value Reference Range Interpretation Comments SODIUM (BEAKER) 130 meq/L 136-145 L (test code = 381) POTASSIUM (BEAKER) 3.3 meq/L 3.5-5.1 L (test code = 379) CHLORIDE (BEAKER) 90 meq/L 98-107 L (test code = 382) CO2 (BEAKER) (test 31 meq/L 22-29 H code = 355) BLOOD UREA NITROGEN 48 mg/dL 7-21 H (BEAKER) (test code = 354) CREATININE (BEAKER) 1.70 mg/dL 0.57-1.25 H (test code = 358) GLUCOSE RANDOM 181 mg/dL 70-105 H (BEAKER) (test code = 652) CALCIUM (BEAKER) 7.5 mg/dL 8.4-10.2 L (test code = 697) EGFR (BEAKER) (test 42 mL/min/1.73 ESTIMA FIAN GFR IS code = 1092) sq m NOT ACCURATE CREATININE CLEARANCE IN PREDICTING GLOMERULAR FILTRATION RATE . ESTIMATED GFR I S NOT APPLICABLE FOR DIALYSIS EUSEBIO CARREON [id number] 17:18:00 Test Item Value Reference Range Interpretation Comments PARTIAL THROMBOPLASTIN TIME 73.0 seconds 22.5-36.0 H ([facility]) (test code = 760) POCT-GLUCOSE [id number] 15:11:00 Test Item Value Reference Range Interpretation Comments POC-GLUCOSE METER 194 mg/dL 70-110 H TESTED AT [facility] 67 ([facility]) (test code = [place] 1538) [address] LACTIC ACID, ARTERIAL, WHOLE [id number] 13:23:00 Test Item Value Reference Range Interpretation Comments LACTATE BLOOD ARTERIAL (2) 1.0 mmol/L 0.5-2.2 ([facility]) (test code = 2874) Effective 03/21/2016: Units/Reference Range ChangeNew: 0.5-2.2 mmol/L Previous: 5-20 mg/dLPOCT-GLUCOSE [id number] 12:41:00 Test Item Value Reference Range Interpretation Comments POC-GLUCOSE METER 236 mg/dL 70-110 H TESTED AT [facility] 6720 ([facility]) (test code = [place] 1538) [address] OXYGEN SATURATION, [id number] 12:31:00 Test Item Value Reference Range Interpretation Comments O2 SATURATION (MEASURED) ([facility]) 55.9 % (test code = 1455) Mixed venous from central line.[id number] 10:03:00 Test Item Value Reference Range Interpretation Comments POTASSIUM (BEAKER) (test code = 3.2 meq/L 3.5-5.1 L 379) Check Serum Potassium level 2 hours after oral potassium replacement completed or 30 min after intravenous potassium replacement.POCT-GLUCOSE [id number] 09:23:00 Test Item Value Reference Range Interpretation Comments POC-GLUCOSE METER 150 mg/dL 70-110 H TESTED AT [place] [address] ([facility]) (test code = NUR[facility] [place] 1538) [address] RAD, CHEST, 1 VIEW, NON [id number] 09:18:00Reason for exam:- >hypoxemiaShould this be performed at the bedside?->YesFINAL REPORT [...] James Verified Date/Time: 08/04/2017 09:18:42 Reading Location: [facility] [id number] Ortho Consult Reading Room APTT 2017-08-04 06:56:00 Test Item Value Reference Range Interpretation Comments PARTIAL THROMBOPLASTIN TIME 76.8 seconds 22.5-36.0 H (BEAKER) (test code = 760) POCT-GLUCOSE [id number] 06:18:00 Test Item Value Reference Range Interpretation Comments POC-GLUCOSE METER 118 mg/dL 70-110 H TESTED AT [place] [address] ([facility]) (test code = NUR[facility] [place] 1538) [id number] (MANUAL DIFFERENTIAL)2017-08-04 05:23:00 Test Item Value Reference Range Interpretation Comments NEUTROPHILS - REL (DIFF) (BEAKER) 74 % (test code = 1359) LYMPHOCYTES - REL (DIFF) (BEAKER) 7 % (test code = 1360) MONOCYTES - REL (DIFF) (BEAKER) 6 % (test code = 1361) EOSINOPHILS - REL (DIFF) (BEAKER) 2 % (test code = 1362) METAMYELOCYTES-REL (DIFF) (BEAKER) 4 % 0-0 H (test code = 258) MYELOCYTES-REL (DIFF) (BEAKER) 4 % 0-0 H (test code = 1594) BANDS - REL (DIFF) (BEAKER) (test 3 % 0-10 code = 1348) NEUTROPHILS - ABS (DIFF) (BEAKER) 9.40 K/ L 1.80-8.00 H (test code = 1365) LYMPHOCYTES - ABS (DIFF) (BEAKER) 0.89 K/ L 1.48-4.50 L (test code = 1366) MONOCYTES - ABS (DIFF) (BEAKER) 0.76 K/ L 0.00-1.30 (test code = 1367) EOSINOPHILS - ABS (DIFF) (BEAKER) 0.25 K/ L 0.00-0.50 (test code = 1368) METAMYELOCTYES - ABS (DIFF) 0.51 K/ L 0.00-0.00 H (BEAKER) (test code = 261) BANDS-ABS (DIFF) (BEAKER) (test 0.4 K/ L 0.0-0.8 code = 1349) MYELOCYTES-ABS (DIFF) (BEAKER) 0.51 K/ L 0.00-0.00 H (test code = 1593) TOTAL COUNTED (BEAKER) (test code = 100 1351) BANDS + SEGMENTED NEUTROPHILS 9.78 (BEAKER) (test code = 1352) WBC MORPHOLOGY (BEAKER) (test code Normal = 487) PLT MORPHOLOGY (BEAKER) (test code Normal = 486) POIKILOCYTES (BEAKER) (test code = 1+ few 966) CBC W/PLT COUNT & AUTO [id number] 05:22:00 Test Item Value Reference Range Interpretation Comments WHITE BLOOD CELL COUNT (BEAKER) 12.7 K/ L 3.5-10.5 H (test code = 775) RED BLOOD CELL COUNT (BEAKER) 3.04 M/ L 4.63-6.08 L (test code = 761) HEMOGLOBIN (BEAKER) (test code = 9.1 GM/DL 13.7-17.5 L 410) HEMATOCRIT (BEAKER) (test code = 26.6 % 40.1-51.0 L 411) MEAN CORPUSCULAR VOLUME (BEAKER) 87.5 fL 79.0-92.2 (test code = 753) MEAN CORPUSCULAR HEMOGLOBIN 29.9 pg 25.7-32.2 (BEAKER) (test code = 751) MEAN CORPUSCULAR HEMOGLOBIN CONC 34.2 GM/DL 32.3-36.5 (BEAKER) (test code = 752) RED CELL DISTRIBUTION WIDTH 12.4 % 11.6-14.4 (BEAKER) (test code = 412) PLATELET COUNT (BEAKER) (test 195 K/CU MM 150-450 code = 756) MEAN PLATELET VOLUME (BEAKER) 11.4 fL 9.4-12.4 (test code = 754) NUCLEATED RED BLOOD CELLS 2 /100 WBC 0-0 H (BEAKER) (test code = 413) IMMATURE GRANULOCYTES-RELATIVE 9 % 0-1 H PERCENT (BEAKER) (test code = 2801) BASIC METABOLIC [id number] 05:19:00 Test Item Value Reference Range Interpretation Comments SODIUM (BEAKER) 132 meq/L 136-145 L (test code = 381) POTASSIUM (BEAKER) 3.1 meq/L 3.5-5.1 L (test code = 379) CHLORIDE (BEAKER) 96 meq/L 98-107 L (test code = 382) CO2 (BEAKER) (test 25 meq/L 22-29 code = 355) BLOOD UREA NITROGEN 44 mg/dL 7-21 H (BEAKER) (test code = 354) CREATININE (BEAKER) 1.45 mg/dL 0.57-1.25 H (test code = 358) GLUCOSE RANDOM 127 mg/dL 70-105 H (BEAKER) (test code = 652) CALCIUM (BEAKER) 7.1 mg/dL 8.4-10.2 L (test code = 697) EGFR (BEAKER) (test 50 mL/min/1.73 ESTIMA FINA GFR IS code = 1092) sq m NOT ACCURATE CREATININE CLEARANCE IN PREDICTING GLOMERULAR FILTRATION RATE . ESTIMATED GFR I S NOT APPLICABLE FOR DIALYSIS PATIEN TS. POCT-GLUCOSE [id number] 05:17:00 Test Item Value Reference Range Interpretation Comments POC-GLUCOSE METER 149 mg/dL 70-110 H TESTED AT [place] [address] ([facility]) (test code = [place] 1538) [address] [id number] 05:11:00 Test Item Value Reference Range Interpretation Comments PHOSPHORUS (BEAKER) (test code = 2.7 mg/dL 2.3-4.7 604) [id number] 05:11:00 Test Item Value Reference Range Interpretation Comments MAGNESIUM (BEAKER) (test code = 1.8 mg/dL 1.6-2.6 627) HEPATIC FUNCTION [id number] 05:11:00 Test Item Value Reference Range Interpretation Comments TOTAL PROTEIN (BEAKER) (test code = 5.3 gm/dL 6.0-8.3 L 770) ALBUMIN (BEAKER) (test code = 1145) 2.7 g/dL 3.5-5.0 L BILIRUBIN TOTAL (BEAKER) (test code 1.2 mg/dL 0.2-1.2 = 377) BILIRUBIN DIRECT (BEAKER) (test 0.6 mg/dL 0.1-0.5 H code = 706) ALKALINE PHOSPHATASE (BEAKER) (test 78 U/L 40-150 code = 346) AST (SGOT) (BEAKER) (test code = 613 U/L 5-34 H 353) ALT (SGPT) (BEAKER) (test code = 1371 U/L 6-55 H 347) POCT-GLUCOSE [id number] 04:16:00 Test Item Value Reference Range Interpretation Comments POC-GLUCOSE METER 131 mg/dL 70-110 H TESTED AT [place] [address] (BEAKER) (test code = [facility] [place] 1538) [address] POCT-GLUCOSE [id number] 04:16:00 Test Item Value Reference Range Interpretation Comments POC-GLUCOSE METER 105 mg/dL 70-110 TESTED AT [place] [address] ([facility] 15[facility] [address] POCT-GLUCOSE [id number] 02:38:00 Test Item Value Reference Range Interpretation Comments POC-GLUCOSE METER 90 mg/dL 70-110 TESTED AT [place] [address] ([facility]) (test code = NURIS [place] [facility] [address] 1538) POCT-GLUCOSE [id number] 00:35:00 Test Item Value Reference Range Interpretation Comments POC-GLUCOSE METER 104 mg/dL 70-110 TESTED AT [place] [address] ([facility]) (test code = NURIS [place] [facility] 1538) [address] POCT-GLUCOSE [id number] 23:46:00 Test Item Value Reference Range Interpretation Comments POC-GLUCOSE METER 126 mg/dL 70-110 H TESTED AT [place] [address] ([facility]) (test code = NURIS [place] [facility] 1538) [address] POCT-GLUCOSE [id number] 21:13:00 Test Item Value Reference Range Interpretation Comments POC-GLUCOSE METER 160 mg/dL 70-110 H TESTED AT [place] [address] ([facility]) (test code = NURIS [place] [facility] 1538) [address] [id number] 20:24:00 Test Item Value Reference Range Interpretation Comments PARTIAL THROMBOPLASTIN TIME 54.0 seconds 22.5-36.0 H ([facility]) (test code = 760) POCT-GLUCOSE [id number] 20:12:00 Test Item Value Reference Range Interpretation Comments POC-GLUCOSE METER 172 mg/dL 70-110 H TESTED AT [place] [address] ([facility]) (test code = NURIS [place] [facility] 1538) [id number] POCT-GLUCOSE [id number] 15:16:00 Test Item Value Reference Range Interpretation Comments POC-GLUCOSE METER 102 mg/dL 70-110 TESTED AT [place] [address] ([facility]) (test code = NURIS Antony [facility] 1538) [id number] 12:48:00 Test Item Value Reference Range Interpretation Comments PARTIAL THROMBOPLASTIN TIME 46.2 seconds 22.5-36.0 H ([facility]) (test code = 760) POCT-GLUCOSE [id number] 11:37:00 Test Item Value Reference Range Interpretation Comments POC-GLUCOSE METER 109 mg/dL 70-110 TESTED AT [place] [address] ([facility]) (test code = NURIS Antony [facility] 1538) [id number] U/S, ABDOMINAL, [id number] 09:59:00Abdomen limited area? Add comment if clarification [...] sonographic evidence of acute cholecystitis. Signed: Chele Francoort Verified Date/Time: 08/03/2017 09:59:59 Reading Location: [place] [id number] CT Body Reading Room RAD, CHEST, 1 VIEW, NON [id number] 08:05:00Reason for exam:->hypoxemiaShould this be performed at the bedside?->YesFINAL REPORT Chest one view INDICATION: Hypoxemia COMPARISON: 08/02/2017 IMPRESSION: A right jugular line and median sternotomy changes are again noted. The cardiac silhouette is enlarged. Mediastinal prominence is stable. There are low lung volumes with stable mixed interstitialand airspace opacities, in part due to edema and atelectasis. Superimposed pneumonitis cannot be excluded. Small right and possible trace left pleural effusions are present. No pneumothorax is seen. There is stable gaseous bowel loop prominence in the imaged abdomen. Signed: Lewis Dickerson MDReport Verified Date/Time: 08/03/2017 08:05:10 Reading Location: [place] [id number] Neuro Reading Room Elect ronically signed by: LEWIS DICKERSON M.D. on 08/03/2017 08:05 AMCBC W/PLT COUNT & AUTO [id number] 06:41:00 Test Item Value Reference Range Interpretation Comments WHITE BLOOD CELL COUNT (BEAKER) 11.9 K/ L 3.5-10.5 H (test code = 775) RED BLOOD CELL COUNT (BEAKER) 2.99 M/ L 4.63-6.08 L (test code = 761) HEMOGLOBIN (BEAKER) (test code = 9.1 GM/DL 13.7-17.5 L 410) HEMATOCRIT (BEAKER) (test code = 26.2 % 40.1-51.0 L 411) MEAN CORPUSCULAR VOLUME (BEAKER) 87.6 fL 79.0-92.2 (test code = 753) MEAN CORPUSCULAR HEMOGLOBIN 30.4 pg 25.7-32.2 (BEAKER) (test code = 751) MEAN CORPUSCULAR HEMOGLOBIN CONC 34.7 GM/DL 32.3-36.5 (BEAKER) (test code = 752) RED CELL DISTRIBUTION WIDTH 12.3 % 11.6-14.4 (BEAKER) (test code = 412) PLATELET COUNT (BEAKER) (test 161 K/CU MM 150-450 code = 756) MEAN PLATELET VOLUME (BEAKER) 11.6 fL 9.4-12.4 (test code = 754) NUCLEATED RED BLOOD CELLS 1 /100 WBC 0-0 H (BEAKER) (test code = 413) IMMATURE GRANULOCYTES-RELATIVE 5 % 0-1 H PERCENT (BEAKER) (test code = 2801) (MANUAL DIFFERENTIAL)2017-08-03 06:41:00 Test Item Value Reference Range Interpretation Comments NEUTROPHILS - REL (DIFF) (BEAKER) 84 % (test code = 1359) LYMPHOCYTES - REL (DIFF) (BEAKER) 5 % (test code = 1360) MONOCYTES - REL (DIFF) (BEAKER) 3 % (test code = 1361) EOSINOPHILS - REL (DIFF) (BEAKER) 1 % (test code = 1362) METAMYELOCYTES-REL (DIFF) (BEAKER) 2 % 0-0 H (test code = 258) MYELOCYTES-REL (DIFF) (BEAKER) 1 % 0-0 H (test code = 1594) BANDS - REL (DIFF) (BEAKER) (test 4 % 0-10 code = 1348) NEUTROPHILS - ABS (DIFF) (BEAKER) 10.00 K/ L 1.80-8.00 H (test code = 1365) LYMPHOCYTES - ABS (DIFF) (BEAKER) 0.60 K/ L 1.48-4.50 L (test code = 1366) MONOCYTES - ABS (DIFF) (BEAKER) 0.36 K/ L 0.00-1.30 (test code = 1367) EOSINOPHILS - ABS (DIFF) (BEAKER) 0.12 K/ L 0.00-0.50 (test code = 1368) METAMYELOCTYES - ABS (DIFF) 0.24 K/ L 0.00-0.00 H (BEAKER) (test code = 261) BANDS-ABS (DIFF) (BEAKER) (test 0.5 K/ L 0.0-0.8 code = 1349) MYELOCYTES-ABS (DIFF) (BEAKER) 0.12 K/ L 0.00-0.00 H (test code = 1593) TOTAL COUNTED (BEAKER) (test code 100 = 1351) BANDS + SEGMENTED NEUTROPHILS 10.47 (BEAKER) (test code = 1352) MANUAL NRBC PER 100 CELLS (BEAKER) 1 /100 WBC 0-0 H (test code = 1353) WBC MORPHOLOGY (BEAKER) (test code Normal = 487) PLT MORPHOLOGY (BEAKER) (test code Normal = 486) RBC MORPHOLOGY (BEAKER) (test code Normal = 762) POCT-GLUCOSE [id number] 06:13:00 Test Item Value Reference Range Interpretation Comments POC-GLUCOSE METER 133 mg/dL 70-110 H TESTED AT [place] [address] ([facility]) ([facility] [place] [facility] [address] POCT-GLUCOSE [id number] 06:13:00 Test Item Value Reference Range Interpretation Comments POC-GLUCOSE METER 143 mg/dL 70-110 H TESTED AT [place] [address] ([facility]) (test code = NURIS Anton[place] 1538) [address] POCT-GLUCOSE [id number] 06:13:00 Test Item Value Reference Range Interpretation Comments POC-GLUCOSE METER 136 mg/dL 70-110 H TESTED AT [place] [address] (BEAKER) (test code = [place] 1538) [address] [id number] 05:47:00 Test Item Value Reference Range Interpretation Comments PARTIAL THROMBOPLASTIN TIME 37.5 seconds 22.5-36.0 H (BEAKER) (test code = 760) [id number] 05:37:00 Test Item Value Reference Range Interpretation Comments PHOSPHORUS (BEAKER) (test code = 1.8 mg/dL 2.3-4.7 L 604) [id number] 05:37:00 Test Item Value Reference Range Interpretation Comments MAGNESIUM (BEAKER) (test code = 2.1 mg/dL 1.6-2.6 627) BASIC METABOLIC [id number] 05:37:00 Test Item Value Reference Range Interpretation Comments SODIUM (BEAKER) 133 meq/L 136-145 L (test code = 381) POTASSIUM (BEAKER) 4.1 meq/L 3.5-5.1 (test code = 379) CHLORIDE (BEAKER) 96 meq/L 98-107 L (test code = 382) CO2 (BEAKER) (test 27 meq/L 22-29 code = 355) BLOOD UREA NITROGEN 40 mg/dL 7-21 H (BEAKER) (test code = 354) CREATININE (BEAKER) 1.15 mg/dL 0.57-1.25 (test code = 358) GLUCOSE RANDOM 134 mg/dL 70-105 H (BEAKER) (test code = 652) CALCIUM (BEAKER) 8.0 mg/dL 8.4-10.2 L (test code = 697) EGFR (BEAKER) (test 65 mL/min/1.73 ESTIMA FINA GFR IS code = 1092) sq m NOT ACCURATE CREATININE CLEARANCE IN PREDICTING GLOMERULAR FILTRATION RATE . ESTIMATED GFR I S NOT APPLICABLE FOR DIALYSIS PATIEN TS. HEPATIC FUNCTION [id number] 05:37:00 Test Item Value Reference Range Interpretation Comments TOTAL PROTEIN (BEAKER) (test code = 5.6 gm/dL 6.0-8.3 L 770) ALBUMIN (BEAKER) (test code = 1145) 2.8 g/dL 3.5-5.0 L BILIRUBIN TOTAL (BEAKER) (test code 1.1 mg/dL 0.2-1.2 = 377) BILIRUBIN DIRECT (BEAKER) (test 0.6 mg/dL 0.1-0.5 H code = 706) ALKALINE PHOSPHATASE (AKER) (test 86 U/L 40-150 code = 346) AST (SGOT) ([facility]) (test code = 795 U/L 5-34 H 353) ALT (SGPT) ([facility]) (test code = 1649 U/L 6-55 H 347) CREATINE KINASE (CK)2017-08-03 05:37:00 Test Item Value Reference Range Interpretation Comments CREATINE KINASE TOTAL ([facility]) (test 1216 U/L 29-200 H code = 380) OXYGEN SATURATION, [id number] 05:34:00 Test Item Value Reference Range Interpretation Comments O2 SATURATION (MEASURED) ([facility]) 51.5 % (test code = 1455) POCT-GLUCOSE [id number] 01:44:00 Test Item Value Reference Range Interpretation Comments POC-GLUCOSE METER 101 mg/dL 70-110 TESTED AT [place] [address] ([facility]) ([facility] 1538) [address] POCT-GLUCOSE [id number] 01:44:00 Test Item Value Reference Range Interpretation Comments POC-GLUCOSE METER 82 mg/dL 70-110 TESTED AT [place] [address] ([facility]) ([facility] [address]) POCT-GLUCOSE [id number] 01:44:00 Test Item Value Reference Range Interpretation Comments POC-GLUCOSE METER 111 mg/dL 70-110 H TESTED AT [place] [address] ([facility]) (test code = NURIS Antony [facility] 1538) [address] POCT-GLUCOSE [id number] 01:44:00 Test Item Value Reference Range Interpretation Comments POC-GLUCOSE METER 129 mg/dL 70-110 H TESTED AT [place] [address] ([facility]) (test code = NURIS Antony [facility] 1538) [address] [id number] 23:10:00 Test Item Value Reference Range Interpretation Comments PARTIAL THROMBOPLASTIN TIME 32.3 seconds 22.5-36.0 ([facility]) (test code = 760) POCT-GLUCOSE [id number] 22:53:00 Test Item Value Reference Range Interpretation Comments POC-GLUCOSE METER 152 mg/dL 70-110 H TESTED AT [place] [address] ([facility]) (test code = NURIS [place] 1538) [address] OXYGEN SATURATION, [id number] 22:00:00 Test Item Value Reference Range Interpretation Comments O2 SATURATION (MEASURED) (BEAKER) 48.0 % (test code = 1455) BASIC METABOLIC [id number] 20:43:00 Test Item Value Reference Range Interpretation Comments SODIUM (BEAKER) 132 meq/L 136-145 L (test code = 381) POTASSIUM (BEAKER) 4.0 meq/L 3.5-5.1 (test code = 379) CHLORIDE (BEAKER) 97 meq/L 98-107 L (test code = 382) CO2 (BEAKER) (test 24 meq/L 22-29 code = 355) BLOOD UREA NITROGEN 39 mg/dL 7-21 H (BEAKER) (test code = 354) CREATININE (BEAKER) 1.14 mg/dL 0.57-1.25 (test code = 358) GLUCOSE RANDOM 149 mg/dL 70-105 H (BEAKER) (test code = 652) CALCIUM (BEAKER) 7.8 mg/dL 8.4-10.2 L (test code = 697) EGFR (BEAKER) (test 66 mL/min/1.73 ESTIMA [place] GFR IS code = 1092) sq m NOT ACCURATE CREATININE CLEARANCE IN PREDICTING GLOMERULAR FILTRATION RATE . ESTIMATED GFR I S NOT APPLICABLE FOR DIALYSIS PATIEN TS. [id number] 20:38:00 Test Item Value Reference Range Interpretation Comments MAGNESIUM (BEAKER) (test code = 2.0 mg/dL 1.6-2.6 627) POCT-GLUCOSE [id number] 20:10:00 Test Item Value Reference Range Interpretation Comments POC-GLUCOSE METER 159 mg/dL 70-110 H TESTED AT [place] [address] ([facility]) (test code = NURIS [place] 1538) [address] POCT-GLUCOSE [id number] 18:58:00 Test Item Value Reference Range Interpretation Comments POC-GLUCOSE METER 173 mg/dL 70-110 H TESTED AT [place] [address] ([facility]) (test code = NURIS [place] 1538) [address] [id number] 17:45:00 Test Item Value Reference Range Interpretation Comments PARTIAL THROMBOPLASTIN TIME 30.1 seconds 22.5-36.0 (BEAKER) (test code = 760) POCT-GLUCOSE [id number] 17:24:00 Test Item Value Reference Range Interpretation Comments POC-GLUCOSE METER 174 mg/dL 70-110 H TESTED AT [place] [address] ([facility]) (test code = NURIS [place] 1538) [address] CREATINE KINASE (CK)2017-08-02 16:08:00 Test Item Value Reference Range Interpretation Comments CREATINE KINASE TOTAL (BEAKER) (test 1799 U/L 29-200 H code = 380) POCT-GLUCOSE [id number] 15:44:00 Test Item Value Reference Range Interpretation Comments POC-GLUCOSE METER 174 mg/dL 70-110 H TESTED AT [place] [address] ([facility]) (test code = [facility] [place] 1538) [address] OXYGEN SATURATION, [id number] 15:44:00 Test Item Value Reference Range Interpretation Comments O2 SATURATION (MEASURED) (BEAKER) 50.2 % (test code = 1455) BLOOD GAS, [id number] 15:40:00 Test Item Value Reference Range Interpretation Comments PH ARTERIAL (BEAKER) (test code = 7.46 7.35-7.45 H 383) PCO2 ARTERIAL (BEAKER) (test code 35 mmHg 35-45 = 384) PO2 ARTERIAL (BEAKER) (test code = 244 mmHg 80-90 H 385) O2 SATURATION ARTERIAL (BEAKER) 99.6 % 96.0-97.0 H (test code = 386) HCO3 ARTERIAL (BEAKER) (test code 25 mmol/L 21-29 = 388) BASE EXCESS ARTERIAL (BEAKER) 0.6 mmol/L -2.0-3.0 (test code = 387) PATIENT TEMPERATURE (BEAKER) (test 36.5 C code = 1818) FIO2 (BEAKER) (test code = 1819) 100.0 % POCT-GLUCOSE [id number] 14:08:00 Test Item Value Reference Range Interpretation Comments POC-GLUCOSE METER 141 mg/dL 70-110 H TESTED AT [place] [address] ([facility]) (test code = [facility] [place] 1538) [address] POCT-GLUCOSE [id number] 13:22:00 Test Item Value Reference Range Interpretation Comments POC-GLUCOSE METER 97 mg/dL 70-110 TESTED AT [place] [address] ([facility]) (test code = NURIS Antony [facility] [address]38) HEPATIC FUNCTION [id number] 12:02:00 Test Item Value Reference Range Interpretation Comments TOTAL PROTEIN (BEAKER) (test code = 5.7 gm/dL 6.0-8.3 L 770) ALBUMIN (AKER) (test code = 1145) 2.8 g/dL 3.5-5.0 L BILIRUBIN TOTAL (BEAKER) (test code 1.0 mg/dL 0.2-1.2 = 377) BILIRUBIN DIRECT (BEAKER) (test 0.6 mg/dL 0.1-0.5 H code = 706) ALKALINE PHOSPHATASE (BEAKER) (test 69 U/L 40-150 code = 346) AST (SGOT) (BEAKER) (test code = 812 U/L 5-34 H 353) ALT (SGPT) (BEAKER) (test code = 1604 U/L 6-55 H 347) [id number] 11:11:00 Test Item Value Reference Range Interpretation Comments PARTIAL THROMBOPLASTIN TIME 28.6 seconds 22.5-36.0 (AKER) (test code = 760) 6 hours after starting heparin infusion and as indicated per sliding scalePOCT- GLUCOSE [id number] 10:59:00 Test Item Value Reference Range Interpretation Comments POC-GLUCOSE METER 105 mg/dL 70-110 TESTED AT [place] [address] ([facility]) ([facility] 1538) [address] BLOOD GAS, [id number] 10:58:00 Test Item Value Reference Range Interpretation Comments PH ARTERIAL (BEAKER) (test code = 7.49 7.35-7.45 H 383) PCO2 ARTERIAL (BEAKER) (test code 36 mmHg 35-45 = 384) PO2 ARTERIAL (BEAKER) (test code = 153 mmHg 80-90 H 385) O2 SATURATION ARTERIAL (BEAKER) 99.1 % 96.0-97.0 H (test code = 386) HCO3 ARTERIAL (BEAKER) (test code 26 mmol/L 21-29 = 388) BASE EXCESS ARTERIAL (BEAKER) 3.0 mmol/L -2.0-3.0 (test code = 387) PATIENT TEMPERATURE (BEAKER) (test 37.0 C code = 1818) FIO2 (BEAKER) (test code = 1819) 100.0 % LACTIC ACID, ARTERIAL, WHOLE [id number] 10:28:00 Test Item Value Reference Range Interpretation Comments LACTATE BLOOD ARTERIAL (2) 1.1 mmol/L 0.5-2.2 (BEAKER) (test code = 2874) Effective 03/21/2016: Units/Reference Range ChangeNew: 0.5-2.2 mmol/L Previous: 5-20 mg/dLPOCT-GLUCOSE [id number] 08:55:00 Test Item Value Reference Range Interpretation Comments POC-GLUCOSE METER 111 mg/dL 70-110 H TESTED AT [facility] 67[facility] ([facility]) (test code = N[place] 1538) [address] HEMOGLOBIN AND [id number] 08:53:00 Test Item Value Reference Range Interpretation Comments HEMOGLOBIN (BEAKER) (test code = 9.1 GM/DL 13.7-17.5 L 410) HEMATOCRIT (BEAKER) (test code = 26.7 % 40.1-51.0 L 411) POCT-GLUCOSE [id number] 06:28:00 Test Item Value Reference Range Interpretation Comments POC-GLUCOSE METER 122 mg/dL 70-110 H TESTED AT [facility] 67[address] ([facility]) (test code = [facility] [place] 1538) [address] OXYGEN SATURATION, [id number] 06:07:00 Test Item Value Reference Range Interpretation Comments O2 SATURATION (MEASURED) (BEAKER) 61.5 % (test code = 1455) CBC W/PLT COUNT & AUTO [id number] 06:04:00 Test Item Value Reference Range Interpretation Comments WHITE BLOOD CELL COUNT (BEAKER) 11.1 K/ L 3.5-10.5 H (test code = 775) RED BLOOD CELL COUNT (BEAKER) 2.98 M/ L 4.63-6.08 L (test code = 761) HEMOGLOBIN (BEAKER) (test code = 9.1 GM/DL 13.7-17.5 L 410) HEMATOCRIT (BEAKER) (test code = 26.7 % 40.1-51.0 L 411) MEAN CORPUSCULAR VOLUME (BEAKER) 89.6 fL 79.0-92.2 (test code = 753) MEAN CORPUSCULAR HEMOGLOBIN 30.5 pg 25.7-32.2 (BEAKER) (test code = 751) MEAN CORPUSCULAR HEMOGLOBIN CONC 34.1 GM/DL 32.3-36.5 (BEAKER) (test code = 752) RED CELL DISTRIBUTION WIDTH 12.7 % 11.6-14.4 (BEAKER) (test code = 412) PLATELET COUNT (BEAKER) (test 102 K/CU MM 150-450 L code = 756) MEAN PLATELET VOLUME (BEAKER) 12.2 fL 9.4-12.4 (test code = 754) NUCLEATED RED BLOOD CELLS 0 /100 WBC 0-0 (BEAKER) (test code = 413) NEUTROPHILS RELATIVE PERCENT 84 % (BEAKER) (test code = 429) LYMPHOCYTES RELATIVE PERCENT 8 % (BEAKER) (test code = 430) MONOCYTES RELATIVE PERCENT 6 % (BEAKER) (test code = 431) EOSINOPHILS RELATIVE PERCENT 0 % (BEAKER) (test code = 432) BASOPHILS RELATIVE PERCENT 0 % (BEAKER) (test code = 437) NEUTROPHILS ABSOLUTE COUNT 9.31 K/ L 1.78-5.38 H (BEAKER) (test code = 670) LYMPHOCYTES ABSOLUTE COUNT 0.90 K/ L 1.32-3.57 L (BEAKER) (test code = 414) MONOCYTES ABSOLUTE COUNT (BEAKER) 0.63 K/ L 0.30-0.82 (test code = 415) EOSINOPHILS ABSOLUTE COUNT 0.04 K/ L 0.04-0.54 (BEAKER) (test code = 416) BASOPHILS ABSOLUTE COUNT (BEAKER) 0.02 K/ L 0.01-0.08 (test code = 417) IMMATURE GRANULOCYTES-RELATIVE 2 % 0-1 H PERCENT (BEAKER) (test code = 2801) POCT-GLUCOSE [id number] 05:47:00 Test Item Value Reference Range Interpretation Comments POC-GLUCOSE METER 121 mg/dL 70-110 H TESTED AT [facility] 6720 (BEAKER) (test code = NURIS [place] 1538) [address] RAD, CHEST, 1 VIEW, NON [id number] 05:45:00Reason for exam:->s/p ACBShould this be performed at the bedside?->YesFINAL REPORT RAD, CHEST, 1 VIEW, NON DEPT INDICATION: s/p ACB COMPARISON: Prior day's exam TECHNIQUE: Portable frontal view of the chest. IMPRESSION: Interval removal of all chest tubes. Stable right IJ line. Worsening interstitial edema.Cardiomediastinal silhouette stable.Streaky opacities in the mid right lung and left lung base likely reflecting atelectasis.No acute osseous abnormality. Signed: Alice Moore MDReport Verified Date/Time: 08/02/2017 05:45:27 Reading Location: [address] Ortho Consult Reading Room RAD, ABDOMEN/KUB, 1 VIEW [id number] 05:44:00Reason for exam:->DistentionFINAL REPORT RAD, ABDOMEN/KUB, 1 VIEW AP CLINICAL INDICATION: "Distention"COMPARISON: None TECHNIQUE: Single, frontal radiograph of the abdomen. IMPRESSION: Prominent but not dilated, air-filled loops of small bowel in the left hemiabdomen.Nondistended, air-filled loops of colon.Overall pattern is nonspecific. There is no high-grade obstruction at this time.No pneumatosis o r obvious pneumoperitoneum.No acute osseous abnormality. Signed: Alice Moore MDReport Verified Date/Time: 08/02/2017 05:44:54 Reading Location: [facility] [id number] Ortho Consult Reading Room [id number] 05:31:00 Test Item Value Reference Range Interpretation Comments POTASSIUM (BEAKER) (test code = 4.5 meq/L 3.5-5.1 379) [id number] 05:31:00 Test Item Value Reference Range Interpretation Comments PHOSPHORUS (BEAKER) (test code = 2.4 mg/dL 2.3-4.7 604) BASIC METABOLIC [id number] 05:31:00 Test Item Value Reference Range Interpretation Comments SODIUM (BEAKER) 133 meq/L 136-145 L (test code = 381) POTASSIUM (BEAKER) 4.5 meq/L 3.5-5.1 (test code = 379) CHLORIDE (BEAKER) 101 meq/L 98-107 (test code = 382) CO2 ([facility]) (test 21 meq/L 22-29 L code = 355) BLOOD UREA NITROGEN 44 mg/dL 7-21 H ([facility]) (test code = 354) CREATININE ([facility]) 1.15 mg/dL 0.57-1.25 (test code = 358) GLUCOSE RANDOM 116 mg/dL 70-105 H ([facility]) (test code = 652) CALCIUM ([facility]) 8.1 mg/dL 8.4-10.2 L (test code = 697) EGFR ([facility]) (test 65 mL/min/1.73 ESTIMA [place] GFR IS code = 1092) sq m NOT ACCURATE CREATININE CLEARANCE IN PREDICTING GLOMERULAR FILTRATION RATE . ESTIMATED GFR I S NOT APPLICABLE FOR DIALYSIS PATIEN TS. POCT-GLUCOSE [id number] 04:47:00 Test Item Value Reference Range Interpretation Comments POC-GLUCOSE METER 124 mg/dL 70-110 H TESTED AT [place] [address] ([facility]) (test code = [facility] 1538) [address] POCT-GLUCOSE [id number] 03:44:00 Test Item Value Reference Range Interpretation Comments POC-GLUCOSE METER 123 mg/dL 70-110 H TESTED AT [place] [address] ([facility]) (test code = [facility] 1538) [address] POCT-GLUCOSE [id number] 03:06:00 Test Item Value Reference Range Interpretation Comments POC-GLUCOSE METER 91 mg/dL 70-110 TESTED AT [place] [address] ([facility]) (test code = [facility] [address] 1538) [id number] 02:16:00 Test Item Value Reference Range Interpretation Comments MAGNESIUM ([facility]) (test code = 2.0 mg/dL 1.6-2.6 627) POCT-GLUCOSE [id number] 02:07:00 Test Item Value Reference Range Interpretation Comments POC-GLUCOSE METER 111 mg/dL 70-110 H TESTED AT [place] [address] ([facility]) (test code = [facility] 1538) [address] POCT-GLUCOSE [id number] 01:16:00 Test Item Value Reference Range Interpretation Comments POC-GLUCOSE METER 123 mg/dL 70-110 H TESTED AT [place] [address] ([facility]) (test code = NURIS [place] 1538) [address] [id number] 01:03:00 Test Item Value Reference Range Interpretation Comments POTASSIUM (BEAKER) (test code = 4.4 meq/L 3.5-5.1 379) HEMOGLOBIN AND [id number] 00:57:00 Test Item Value Reference Range Interpretation Comments HEMOGLOBIN (BEAKER) (test code = 8.8 GM/DL 13.7-17.5 L 410) HEMATOCRIT (BEAKER) (test code = 25.9 % 40.1-51.0 L 411) POCT-GLUCOSE [id number] 00:31:00 Test Item Value Reference Range Interpretation Comments POC-GLUCOSE METER 141 mg/dL 70-110 H TESTED AT [place] [address] ([facility]) (test code = NURIS Antony [facility] 1538) [address] POCT-GLUCOSE [id number] 23:05:00 Test Item Value Reference Range Interpretation Comments POC-GLUCOSE METER 149 mg/dL 70-110 H TESTED AT [place] [address] ([facility]) (test code = [facility] Cassia [facility] 1538) [address] POCT-GLUCOSE [id number] 22:04:00 Test Item Value Reference Range Interpretation Comments POC-GLUCOSE METER 161 mg/dL 70-110 H TESTED AT [place] [address] ([facility]) (test code = NURIS Antony [facility] 1538) [address] [id number] 21:39:00 Test Item Value Reference Range Interpretation Comments POTASSIUM (BEAKER) (test code = 4.7 meq/L 3.5-5.1 379) HEMOGLOBIN AND [id number] 21:16:00 Test Item Value Reference Range Interpretation Comments HEMOGLOBIN (BEAKER) (test code = 8.4 GM/DL 13.7-17.5 L 410) HEMATOCRIT (BEAKER) (test code = 25.2 % 40.1-51.0 L 411) POCT-GLUCOSE [id number] 20:46:00 Test Item Value Reference Range Interpretation Comments POC-GLUCOSE METER 169 mg/dL 70-110 H TESTED AT [place] [address] ([facility]) (test code = [facility] [place] 1538) [address] POCT-GLUCOSE [id number] 19:40:00 Test Item Value Reference Range Interpretation Comments POC-GLUCOSE METER 201 mg/dL 70-110 H TESTED AT [facility] 6720 (BEAKER) (test code = [place] 1538) [address] POCT-GLUCOSE [id number] 18:51:00 Test Item Value Reference Range Interpretation Comments POC-GLUCOSE METER 228 mg/dL 70-110 H TESTED AT [facility] 6720 (BEAKER) (test code = [place] 1538) [address] BASIC METABOLIC [id number] 18:02:00 Test Item Value Reference Range Interpretation Comments SODIUM (BEAKER) 131 meq/L 136-145 L (test code = 381) POTASSIUM (BEAKER) 4.9 meq/L 3.5-5.1 (test code = 379) CHLORIDE (BEAKER) 100 meq/L 98-107 (test code = 382) CO2 (BEAKER) (test 22 meq/L 22-29 code = 355) BLOOD UREA NITROGEN 51 mg/dL 7-21 H (BEAKER) (test code = 354) CREATININE (BEAKER) 1.44 mg/dL 0.57-1.25 H (test code = 358) GLUCOSE RANDOM 231 mg/dL 70-105 H (BEAKER) (test code = 652) CALCIUM (BEAKER) 8.5 mg/dL 8.4-10.2 (test code = 697) EGFR (BEAKER) (test 50 mL/min/1.73 ESTIMA FINA GFR IS code = 1092) sq m NOT ACCURATE CREATININE CLEARANCE IN PREDICTING GLOMERULAR FILTRATION RATE . ESTIMATED GFR I S NOT APPLICABLE FOR DIALYSIS PATIEN TS. OXYGEN SATURATION, [id number] 17:07:00 Test Item Value Reference Range Interpretation Comments O2 SATURATION (MEASURED) (BEAKER) 60.3 % (test code = 1455) U/S, RENAL WITH [id number] 16:36:00Reason for exam:->akiFINAL REPORT TECHNIQUE: Grayscale, color [...] OTHER FINDINGS: Trace ascites in the pelvis. IMPRESSION:Unremarkable appearance of both kidneys. Markedly limited Doppler evaluation of the renal vasculature, as detailed above. Trace ascites in the pelvis. Signed: Evan Artis MDReport Verified Date/Time: 08/01/2017 16:36:54 Reading Location: [address] Ultrasound Reading Room POCT-GLUCOSE [id number] 15:22:00 Test Item Value Reference Range Interpretation Comments POC-GLUCOSE METER 325 mg/dL 70-110 H TESTED AT [place] [address] ([facility]) (test code = [place] [address]) [address] RAD, CHEST, 1 VIEW, NON [id number] 13:30:00Reason for exam:->chest tubes FINAL REPORT TECHNIQUE: Frontal chest radiograph dated 08/01/2017. [...] MDReport Verified Date/Time: 08/01/2017 13:30:25 Reading Location: [facility] Radiology Reading Room POCT- GLUCOSE [id number] 13:21:00 Test Item Value Reference Range Interpretation Comments POC-GLUCOSE METER 295 mg/dL 70-110 H TESTED AT [place] [address] ([facility]) (test code = NURIS Antony [facility] 1538) [id number] 13:15:00 Test Item Value Reference Range Interpretation Comments POTASSIUM (BEAKER) (test code = 5.2 meq/L 3.5-5.1 H 379) POCT-GLUCOSE [id number] 11:05:00 Test Item Value Reference Range Interpretation Comments POC-GLUCOSE METER 311 mg/dL 70-110 H TESTED AT [place] [address] ([facility]) (test code = NURIS Antony [facility] 1538) [id number] 10:54:00 Test Item Value Reference Range Interpretation Comments POTASSIUM (BEAKER) (test code = 5.7 meq/L 3.5-5.1 H 379) LACTIC ACID, ARTERIAL, WHOLE [id number] 10:49:00 Test Item Value Reference Range Interpretation Comments LACTATE BLOOD ARTERIAL (2) 2.6 mmol/L 0.5-2.2 H (BEAKER) (test code = 2874) Effective 03/21/2016: Units/Reference Range ChangeNew: 0.5-2.2 mmol/L Previous: 5-20 mg/dLOXYGEN SATURATION, [id number] 10:39:00 Test Item Value Reference Range Interpretation Comments O2 SATURATION (MEASURED) (AKER) 30.8 % (test code = 1455) POCT-GLUCOSE [id number] 10:16:00 Test Item Value Reference Range Interpretation Comments POC-GLUCOSE METER 364 mg/dL 70-110 H Notified R Kathrine GATES/TESTED ([facility]) (test code = AT [place] [address]) [facility] [id number] POCT-GLUCOSE [id number] 09:02:00 Test Item Value Reference Range Interpretation Comments POC-GLUCOSE METER 321 mg/dL 70-110 H Notified R Kathrine GATES/TESTED ([facility]) (test code = AT [place] [id number]) [facility] [id number] HEMOGLOBIN AND [id number] 08:23:00 Test Item Value Reference Range Interpretation Comments HEMOGLOBIN (BEAKER) (test code = 8.0 GM/DL 13.7-17.5 L 410) HEMATOCRIT (BEAKER) (test code = 23.5 % 40.1-51.0 L 411) [id number] 08:20:00 Test Item Value Reference Range Interpretation Comments POTASSIUM (BEAKER) (test code = 6.0 meq/L 3.5-5.1 HH 379) [id number] 07:31:00 Test Item Value Reference Range Interpretation Comments GLUCOSE RANDOM (BEAKER) (test code 345 mg/dL 70-105 H = 652) POCT-GLUCOSE [id number] 06:50:00 Test Item Value Reference Range Interpretation Comments POC-GLUCOSE METER 373 mg/dL 70-110 H TESTED AT [facility] 67[address] (BEAKER) [facility] 1538) [address] POCT-GLUCOSE [id number] 06:39:00 Test Item Value Reference Range Interpretation Comments POC-GLUCOSE METER 371 mg/dL 70-110 H TESTED AT [place] [address] ([facility]) (test code = [facility] 1538) [address] [id number] 04:16:00 Test Item Value Reference Range Interpretation Comments PHOSPHORUS (BEAKER) (test code = 2.7 mg/dL 2.3-4.7 604) [id number] 04:16:00 Test Item Value Reference Range Interpretation Comments MAGNESIUM (BEAKER) (test code = 2.2 mg/dL 1.6-2.6 627) BASIC METABOLIC [id number] 04:16:00 Test Item Value Reference Range Interpretation Comments SODIUM (BEAKER) 131 meq/L 136-145 L (test code = 381) POTASSIUM (BEAKER) 5.9 meq/L 3.5-5.1 H (test code = 379) CHLORIDE (BEAKER) 100 meq/L 98-107 (test code = 382) CO2 (BEAKER) (test 22 meq/L 22-29 code = 355) BLOOD UREA NITROGEN 43 mg/dL 7-21 H (BEAKER) (test code = 354) CREATININE (BEAKER) 1.53 mg/dL 0.57-1.25 H (test code = 358) GLUCOSE RANDOM 361 mg/dL 70-105 H (BEAKER) (test code = 652) CALCIUM (BEAKER) 9.0 mg/dL 8.4-10.2 (test code = 697) EGFR (BEAKER) (test 47 mL/min/1.73 ESTIMA FINA GFR IS code = 1092) sq m NOT ACCURATE CREATININE CLEARANCE IN PREDICTING GLOMERULAR FILTRATION RATE . ESTIMATED GFR I S NOT APPLICABLE FOR DIALYSIS PATIEN TS. CBC W/PLT COUNT & AUTO [id number] 04:04:00 Test Item Value Reference Range Interpretation Comments WHITE BLOOD CELL COUNT (BEAKER) 12.0 K/ L 3.5-10.5 H (test code = 775) RED BLOOD CELL COUNT (BEAKER) 2.74 M/ L 4.63-6.08 L (test code = 761) HEMOGLOBIN (BEAKER) (test code = 8.3 GM/DL 13.7-17.5 L 410) HEMATOCRIT (BEAKER) (test code = 24.7 % 40.1-51.0 L 411) MEAN CORPUSCULAR VOLUME (BEAKER) 90.1 fL 79.0-92.2 (test code = 753) MEAN CORPUSCULAR HEMOGLOBIN 30.3 pg 25.7-32.2 (BEAKER) (test code = 751) MEAN CORPUSCULAR HEMOGLOBIN CONC 33.6 GM/DL 32.3-36.5 (BEAKER) (test code = 752) RED CELL DISTRIBUTION WIDTH 12.5 % 11.6-14.4 (BEAKER) (test code = 412) PLATELET COUNT (BEAKER) (test 120 K/CU MM 150-450 L code = 756) MEAN PLATELET VOLUME (BEAKER) 11.8 fL 9.4-12.4 (test code = 754) NUCLEATED RED BLOOD CELLS 0 /100 WBC 0-0 (BEAKER) (test code = 413) NEUTROPHILS RELATIVE PERCENT 85 % (BEAKER) (test code = 429) LYMPHOCYTES RELATIVE PERCENT 6 % (BEAKER) (test code = 430) MONOCYTES RELATIVE PERCENT 9 % (BEAKER) (test code = 431) EOSINOPHILS RELATIVE PERCENT 0 % (BEAKER) (test code = 432) BASOPHILS RELATIVE PERCENT 0 % (BEAKER) (test code = 437) NEUTROPHILS ABSOLUTE COUNT 10.12 K/ L 1.78-5.38 H (BEAKER) (test code = 670) LYMPHOCYTES ABSOLUTE COUNT 0.71 K/ L 1.32-3.57 L (BEAKER) (test code = 414) MONOCYTES ABSOLUTE COUNT (BEAKER) 1.02 K/ L 0.30-0.82 H (test code = 415) EOSINOPHILS ABSOLUTE COUNT 0.00 K/ L 0.04-0.54 L (BEAKER) (test code = 416) BASOPHILS ABSOLUTE COUNT (BEAKER) 0.00 K/ L 0.01-0.08 L (test code = 417) IMMATURE GRANULOCYTES-RELATIVE 1 % 0-1 PERCENT (BEAKER) (test code = 2801) POCT-GLUCOSE [id number] 01:54:00 Test Item Value Reference Range Interpretation Comments POC-GLUCOSE METER 403 mg/dL 70-110 HH Notified R N MD/TESTED (BEAKER) (test code = AT [facility] [address]) [facility] [id number] HEMOGLOBIN AND [id number] 01:47:00 Test Item Value Reference Range Interpretation Comments HEMOGLOBIN (BEAKER) (test code = 8.7 GM/DL 13.7-17.5 L 410) HEMATOCRIT (BEAKER) (test code = 25.8 % 40.1-51.0 L 411) BASIC METABOLIC [id number] 23:56:00 Test Item Value Reference Range Interpretation Comments SODIUM (BEAKER) 134 meq/L 136-145 L (test code = 381) POTASSIUM (BEAKER) 5.2 meq/L 3.5-5.1 H (test code = 379) CHLORIDE (BEAKER) 102 meq/L 98-107 (test code = 382) CO2 (BEAKER) (test 22 meq/L 22-29 code = 355) BLOOD UREA NITROGEN 35 mg/dL 7-21 H (BEAKER) (test code = 354) CREATININE (BEAKER) 1.35 mg/dL 0.57-1.25 H (test code = 358) GLUCOSE RANDOM 334 mg/dL 70-105 H (BEAKER) (test code = 652) CALCIUM (BEAKER) 9.4 mg/dL 8.4-10.2 (test code = 697) EGFR (BEAKER) (test 54 mL/min/1.73 ESTIMA FINA GFR IS code = 1092) sq m NOT ACCURATE CREATININE CLEARANCE IN PREDICTING GLOMERULAR FILTRATION RATE . ESTIMATED GFR I S NOT APPLICABLE FOR DIALYSIS PATIEN TS. POCT-GLUCOSE [id number] 23:10:00 Test Item Value Reference Range Interpretation Comments POC-GLUCOSE METER 344 mg/dL 70-110 H Notified R Kathrine GATES/TESTED (BEAKER) (test code = AT [place] [id number]) [facility] [address] BLOOD GAS, [id number] 23:04:00 Test Item Value Reference Range Interpretation Comments PH ARTERIAL (BEAKER) (test code = 7.40 7.35-7.45 383) PCO2 ARTERIAL (BEAKER) (test code 41 mm Hg 35-45 = 384) PO2 ARTERIAL (BEAKER) (test code = 69 mm Hg 80-90 L 385) O2 SATURATION ARTERIAL (BEAKER) 93.9 % 96.0-97.0 L (test code = 386) HCO3 ARTERIAL (BEAKER) (test code 25 mmol/L 21-29 = 388) BASE EXCESS ARTERIAL (BEAKER) 0.0 mmol/L -2.0-3.0 (test code = 387) PATIENT TEMPERATURE (BEAKER) (test 37.0 code = 1818) OXYGEN SATURATION, [id number] 23:01:00 Test Item Value Reference Range Interpretation Comments O2 SATURATION (MEASURED) (BEAKER) 47.5 % (test code = 1455) [id number] 19:02:00 Test Item Value Reference Range Interpretation Comments POTASSIUM (BEAKER) (test code = 6.0 meq/L 3.5-5.1 HH 379) BASIC METABOLIC [id number] 17:34:00 Test Item Value Reference Range Interpretation Comments SODIUM (BEAKER) 135 meq/L 136-145 L (test code = 381) POTASSIUM (BEAKER) 5.7 meq/L 3.5-5.1 H (test code = 379) CHLORIDE (BEAKER) 105 meq/L 98-107 (test code = 382) CO2 (BEAKER) (test 21 meq/L 22-29 L code = 355) BLOOD UREA NITROGEN 34 mg/dL 7-21 H (BEAKER) (test code = 354) CREATININE (BEAKER) 1.17 mg/dL 0.57-1.25 (test code = 358) GLUCOSE RANDOM 219 mg/dL 70-105 H (BEAKER) (test code = 652) CALCIUM (BEAKER) 8.4 mg/dL 8.4-10.2 (test code = 697) EGFR (BEAKER) (test 64 mL/min/1.73 ESTIMA FINA GFR IS code = 1092) sq m NOT ACCURATE CREATININE CLEARANCE IN PREDICTING GLOMERULAR FILTRATION RATE . ESTIMATED GFR I S NOT APPLICABLE FOR DIALYSIS PATIEN TS. HEMOGLOBIN AND [id number] 17:20:00 Test Item Value Reference Range Interpretation Comments HEMOGLOBIN (BEAKER) (test code = 8.6 GM/DL 13.7-17.5 L 410) HEMATOCRIT (BEAKER) (test code = 26.3 % 40.1-51.0 L 411) POCT-GLUCOSE [id number] 09:52:00 Test Item Value Reference Range Interpretation Comments POC-GLUCOSE METER 138 mg/dL 70-110 H TESTED AT [place] [address] ([facility]) (test code = [facility] 1538) [id number] HEMOGLOBIN AND [id number] 08:27:00 Test Item Value Reference Range Interpretation Comments HEMOGLOBIN (BEAKER) (test code = 8.8 GM/DL 13.7-17.5 L 410) HEMATOCRIT (BEAKER) (test code = 26.2 % 40.1-51.0 L 411) RAD, CHEST, 1 VIEW, NON [id number] 08:22:00Reason for exam:->pl effusionShould this be performed [...] MDReport Verified Date/Time: 07/31/2017 08:22:41 Reading Location: [facility] Diagnostic Imaging Reading Room - [place] [address] POCT-GLUCOSE [id number] 08:03:00 Test Item Value Reference Range Interpretation Comments POC-GLUCOSE METER 104 mg/dL 70-110 TESTED AT [place] [address] ([facility]) (test code = [facility] 1538) [address] POCT-GLUCOSE [id number] 07:20:00 Test Item Value Reference Range Interpretation Comments POC-GLUCOSE METER 106 mg/dL 70-110 TESTED AT [place] [address] ([facility]) (test code = NURIS Antony [facility] 1538) [address] POCT-GLUCOSE [id number] 07:20:00 Test Item Value Reference Range Interpretation Comments POC-GLUCOSE METER 100 mg/dL 70-110 TESTED AT [place] [address] ([facility]) (test code = [facility] Cassia [facility] 1538) [address] POCT-GLUCOSE [id number] 07:20:00 Test Item Value Reference Range Interpretation Comments POC-GLUCOSE METER 111 mg/dL 70-110 H TESTED AT [place] [address] ([facility]) (test code = [facility] 1538) [address] POCT-GLUCOSE [id number] 04:40:00 Test Item Value Reference Range Interpretation Comments POC-GLUCOSE METER 169 mg/dL 70-110 H TESTED AT [place] [address] ([facility]) (test code = [facility] Cassia [facility] 1538) [address] POCT-GLUCOSE [id number] 04:40:00 Test Item Value Reference Range Interpretation Comments POC-GLUCOSE METER 180 mg/dL 70-110 H TESTED AT [place] [address] ([facility]) (test code = [facility] 1538) [address] CBC W/PLT COUNT & AUTO [id number] 04:07:00 Test Item Value Reference Range Interpretation Comments WHITE BLOOD CELL COUNT (AKER) 12.1 K/ L 3.5-10.5 H (test code = 775) RED BLOOD CELL COUNT (AKER) 3.03 M/ L 4.63-6.08 L (test code = 761) HEMOGLOBIN (BEAKER) (test code = 9.2 GM/DL 13.7-17.5 L 410) HEMATOCRIT (AKER) (test code = 27.5 % 40.1-51.0 L 411) MEAN CORPUSCULAR VOLUME (BEAKER) 90.8 fL 79.0-92.2 (test code = 753) MEAN CORPUSCULAR HEMOGLOBIN 30.4 pg 25.7-32.2 (BEAKER) (test code = 751) MEAN CORPUSCULAR HEMOGLOBIN CONC 33.5 GM/DL 32.3-36.5 (BEAKER) (test code = 752) RED CELL DISTRIBUTION WIDTH 12.6 % 11.6-14.4 (BEAKER) (test code = 412) PLATELET COUNT (BEAKER) (test 157 K/CU MM 150-450 code = 756) MEAN PLATELET VOLUME (BEAKER) 12.0 fL 9.4-12.4 (test code = 754) NUCLEATED RED BLOOD CELLS 0 /100 WBC 0-0 (BEAKER) (test code = 413) NEUTROPHILS RELATIVE PERCENT 84 % (BEAKER) (test code = 429) LYMPHOCYTES RELATIVE PERCENT 6 % (BEAKER) (test code = 430) MONOCYTES RELATIVE PERCENT 10 % (BEAKER) (test code = 431) EOSINOPHILS RELATIVE PERCENT 0 % (BEAKER) (test code = 432) BASOPHILS RELATIVE PERCENT 0 % (BEAKER) (test code = 437) NEUTROPHILS ABSOLUTE COUNT 10.17 K/ L 1.78-5.38 H (BEAKER) (test code = 670) LYMPHOCYTES ABSOLUTE COUNT 0.66 K/ L 1.32-3.57 L (BEAKER) (test code = 414) MONOCYTES ABSOLUTE COUNT (BEAKER) 1.20 K/ L 0.30-0.82 H (test code = 415) EOSINOPHILS ABSOLUTE COUNT 0.00 K/ L 0.04-0.54 L (BEAKER) (test code = 416) BASOPHILS ABSOLUTE COUNT (BEAKER) 0.01 K/ L 0.01-0.08 (test code = 417) IMMATURE GRANULOCYTES-RELATIVE 1 % 0-1 PERCENT (BEAKER) (test code = 2801) [id number] 03:47:00 Test Item Value Reference Range Interpretation Comments MAGNESIUM (BEAKER) (test code = 2.5 mg/dL 1.6-2.6 627) BASIC METABOLIC [id number] 03:47:00 Test Item Value Reference Range Interpretation Comments SODIUM (BEAKER) 139 meq/L 136-145 (test code = 381) POTASSIUM (BEAKER) 4.6 meq/L 3.5-5.1 (test code = 379) CHLORIDE (BEAKER) 108 meq/L 98-107 H (test code = 382) CO2 (BEAKER) (test 24 meq/L 22-29 code = 355) BLOOD UREA NITROGEN 26 mg/dL 7-21 H (BEAKER) (test code = 354) CREATININE (BEAKER) 1.15 mg/dL 0.57-1.25 (test code = 358) GLUCOSE RANDOM 119 mg/dL 70-105 H (BEAKER) (test code = 652) CALCIUM (BEAKER) 8.9 mg/dL 8.4-10.2 (test code = 697) EGFR (BEAKER) (test 65 mL/min/1.73 ESTIMA FINA GFR IS code = 1092) sq m NOT ACCURATE CREATININE CLEARANCE IN PREDICTING GLOMERULAR FILTRATION RATE . ESTIMATED GFR I S NOT APPLICABLE FOR DIALYSIS PATIEN TS. LACTIC ACID, ARTERIAL, WHOLE [id number] 03:44:00 Test Item Value Reference Range Interpretation Comments LACTATE BLOOD ARTERIAL (2) 1.5 mmol/L 0.5-2.2 (BEAKER) (test code = 2874) Effective 03/21/2016: Units/Reference Range ChangeNew: 0.5-2.2 mmol/L Previous: 5-20 mg/dLCALCIUM, [id number] 03:19:00 Test Item Value Reference Range Interpretation Comments CALCIUM IONIZED (BEAKER) (test 1.14 mmol/L 1.12-1.27 code = 698) PH, BLOOD (BEAKER) (test code = 7.36 1810) OXYGEN SATURATION, [id number] 03:19:00 Test Item Value Reference Range Interpretation Comments O2 SATURATION (MEASURED) (BEAKER) 66.3 % (test code = 1455) POCT-GLUCOSE [id number] 01:29:00 Test Item Value Reference Range Interpretation Comments POC-GLUCOSE METER 145 mg/dL 70-110 H TESTED AT [facility] 67 ([facility]) [facility] [place] 1538) [address] POCT-GLUCOSE [id number] 01:29:00 Test Item Value Reference Range Interpretation Comments POC-GLUCOSE METER 152 mg/dL 70-110 H TESTED AT [facility] 6720 ([facility]) (test code = [facility] [place] 1538) [address] HEMOGLOBIN AND [id number] 00:12:00 Test Item Value Reference Range Interpretation Comments HEMOGLOBIN (BEAKER) (test code = 9.4 GM/DL 13.7-17.5 L 410) HEMATOCRIT (BEAKER) (test code = 27.2 % 40.1-51.0 L 411) POCT-GLUCOSE [id number] 23:59:00 Test Item Value Reference Range Interpretation Comments POC-GLUCOSE METER 178 mg/dL 70-110 H TESTED AT [place] [address] ([facility]) (test code = NURIS Antony [place] 1538) [address] [id number] 21:41:00 Test Item Value Reference Range Interpretation Comments POTASSIUM ([facility]) (test code = 4.7 meq/L 3.5-5.1 379) Check Serum Potassium level 2 hours after oral potassium replacement completed or 30 min after intravenous potassium replacement.[id number] 21:41:00 Test Item Value Reference Range Interpretation Comments MAGNESIUM ([facility]) (test code = 2.1 mg/dL 1.6-2.6 627) Check Serum Potassium level 2 hours after oral potassium replacement completed or 30 min after intravenous potassium replacement.POCT-GLUCOSE [id number] 21:00:00 Test Item Value Reference Range Interpretation Comments POC-GLUCOSE METER 187 mg/dL 70-110 H TESTED AT [place] [address] ([facility]) (test code = NURIS Antony [place] 1538) [address] POCT-GLUCOSE [id number] 21:00:00 Test Item Value Reference Range Interpretation Comments POC-GLUCOSE METER 178 mg/dL 70-110 H TESTED AT [place] [address] ([facility]) (test code = NURIS Antony [place] 1538) [address] POCT-GLUCOSE [id number] 18:42:00 Test Item Value Reference Range Interpretation Comments POC-GLUCOSE METER 221 mg/dL 70-110 H TESTED AT [place] [address] ([facility]) (test code = [facility] Cassia [place] 1538) [address] POCT-GLUCOSE [id number] 18:41:00 Test Item Value Reference Range Interpretation Comments POC-GLUCOSE METER 244 mg/dL 70-110 H TESTED AT [place] [address] ([facility]) (test code = [facility] Antony [place] 1538) [address] POCT-GLUCOSE [id number] 18:41:00 Test Item Value Reference Range Interpretation Comments POC-GLUCOSE METER 269 mg/dL 70-110 H TESTED AT [place] [address] ([facility]) (test code = NURIS Antony [place] 1538) [address] POCT-GLUCOSE [id number] 18:41:00 Test Item Value Reference Range Interpretation Comments POC-GLUCOSE METER 306 mg/dL 70-110 H TESTED AT [facility] 6720 (BEAKER) (test code = NURIS BYRNES 1538) [address] POTASSIUM-STAT [id number] 18:32:00 Test Item Value Reference Range Interpretation Comments POTASSIUM (BEAKER) (test code = 3.9 meq/L 3.6-5.5 379) BLOOD GAS, [id number] 18:32:00 Test Item Value Reference Range Interpretation Comments PH ARTERIAL (BEAKER) (test code = 7.37 7.35-7.45 383) PCO2 ARTERIAL (BEAKER) (test code 43 mmHg 35-45 = 384) PO2 ARTERIAL (BEAKER) (test code 95 mmHg 80-90 H = 385) O2 SATURATION ARTERIAL (BEAKER) 96.8 % 96.0-97.0 (test code = 386) HCO3 ARTERIAL (BEAKER) (test code 24 mmol/L 21-29 = 388) BASE EXCESS ARTERIAL (BEAKER) -1.0 mmol/L -2.0-3.0 (test code = 387) PATIENT TEMPERATURE (BEAKER) 37.6 C (test code = 1818) FIO2 (BEAKER) (test code = 1819) 60.0 % SODIUM NA-STAT [id number] 18:32:00 Test Item Value Reference Range Interpretation Comments SODIUM (BEAKER) (test code = 381) 134 meq/L 135-148 L GLUCOSE-STAT [id number] 18:32:00 Test Item Value Reference Range Interpretation Comments GLUCOSE RANDOM (BEAKER) (test code 190 mg/dL 70-110 H = 652) HGB/HCT (H&H) - STAT [id number] 18:32:00 Test Item Value Reference Range Interpretation Comments HEMOGLOBIN (BEAKER) (test code = 10.5 g/dL 13.0-16.8 L 410) HEMATOCRIT (BEAKER) (test code = 31.0 % 40.0-50.0 L 411) CALCIUM, [id number] 18:32:00 Test Item Value Reference Range Interpretation Comments CALCIUM IONIZED (BEAKER) (test 1.16 mmol/L 1.12-1.27 code = 698) PH, BLOOD (BEAKER) (test code = 7.38 1810) [id number] 16:39:00 Test Item Value Reference Range Interpretation Comments MAGNESIUM (BEAKER) (test code = 1.9 mg/dL 1.6-2.6 627) GLUCOSE-STAT [id number] 16:24:00 Test Item Value Reference Range Interpretation Comments GLUCOSE RANDOM (BEAKER) (test code 252 mg/dL 70-110 H = 652) BLOOD GAS, [id number] 16:24:00 Test Item Value Reference Range Interpretation Comments PH ARTERIAL (BEAKER) (test code = 7.36 7.35-7.45 383) PCO2 ARTERIAL (BEAKER) (test code 42 mmHg 35-45 = 384) PO2 ARTERIAL (BEAKER) (test code 91 mmHg 80-90 H = 385) O2 SATURATION ARTERIAL (BEAKER) 95.7 % 96.0-97.0 L (test code = 386) HCO3 ARTERIAL (BEAKER) (test code 23 mmol/L 21-29 = 388) BASE EXCESS ARTERIAL (BEAKER) -1.9 mmol/L -2.0-3.0 (test code = 387) PATIENT TEMPERATURE (BEAKER) 39.1 C (test code = 1818) FIO2 (BEAKER) (test code = 1819) 40.0 % CALCIUM, [id number] 16:24:00 Test Item Value Reference Range Interpretation Comments CALCIUM IONIZED (BEAKER) (test 1.06 mmol/L 1.12-1.27 L code = 698) PH, BLOOD (BEAKER) (test code = 7.39 1810) POTASSIUM-STAT [id number] 16:22:00 Test Item Value Reference Range Interpretation Comments POTASSIUM (BEAKER) (test code = 3.6 meq/L 3.6-5.5 379) RAD, CHEST, 1 VIEW, NON [id number] 14:41:00Reason for exam:->post opShould this be performed at the bedside?->YesFINAL REPORT TECHNIQUE: Frontal chest radiograph dated 07/30/2017. CLINICAL HISTORY: Postop. COMPARISON STUDY: Chest radiograph dated 07/29/2017 IMPRESSION:Endotracheal tube is 6.5 cm above the alfonso. Right internal jugular catheter terminates in the region of the superior vena cava/right atrial junction. Left-sided internal jugular venous catheter tip projects over [...] Rubalcavaeport Verified Date/Time: 07/30/2017 14:41:41 Reading Location: [facility] Radiology Reading Room CBC (HEMOGRAM ONLY)2017-07-30 13:32:00 Test Item Value Reference Range Interpretation Comments WHITE BLOOD CELL COUNT (BEAKER) 13.6 K/ L 3.5-10.5 H (test code = 775) RED BLOOD CELL COUNT (BEAKER) 3.55 M/ L 4.63-6.08 L (test code = 761) HEMOGLOBIN (BEAKER) (test code = 10.9 GM/DL 13.7-17.5 L 410) HEMATOCRIT (BEAKER) (test code = 30.8 % 40.1-51.0 L 411) MEAN CORPUSCULAR VOLUME (BEAKER) 86.8 fL 79.0-92.2 (test code = 753) MEAN CORPUSCULAR HEMOGLOBIN 30.7 pg 25.7-32.2 (BEAKER) (test code = 751) MEAN CORPUSCULAR HEMOGLOBIN CONC 35.4 GM/DL 32.3-36.5 (BEAKER) (test code = 752) RED CELL DISTRIBUTION WIDTH 12.1 % 11.6-14.4 (BEAKER) (test code = 412) PLATELET COUNT (BEAKER) (test 131 K/CU MM 150-450 L code = 756) MEAN PLATELET VOLUME (BEAKER) 11.8 fL 9.4-12.4 (test code = 754) NUCLEATED RED BLOOD CELLS 0 /100 WBC 0-0 (BEAKER) (test code = 413) [id number] 13:04:00 Test Item Value Reference Range Interpretation Comments MAGNESIUM (BEAKER) 2.1 mg/dL 1.6-2.6 Specimen slightly (test code = 627) hemolyzed [id number] 13:04:00 Test Item Value Reference Range Interpretation Comments PHOSPHORUS (BEAKER) 2.5 mg/dL 2.3-4.7 Specimen slightly (test code = 604) hemolyzed BASIC METABOLIC [id number] 13:03:00 Test Item Value Reference Range Interpretation Comments SODIUM (BEAKER) 135 meq/L 136-145 L (test code = 381) POTASSIUM (BEAKER) 4.6 meq/L 3.5-5.1 Specimen slightly (test code = 379) hemolyzed CHLORIDE (BEAKER) 104 meq/L 98-107 (test code = 382) CO2 (BEAKER) (test 24 meq/L 22-29 code = 355) BLOOD UREA NITROGEN 25 mg/dL 7-21 H (BEAKER) (test code = 354) CREATININE (BEAKER) 0.96 mg/dL 0.57-1.25 Specimen slightly (test code = 358) hemolyzed GLUCOSE RANDOM 258 mg/dL 70-105 H (BEAKER) (test code = 652) CALCIUM (BEAKER) 8.3 mg/dL 8.4-10.2 L (test code = 697) EGFR (BEAKER) (test 80 mL/min/1.73 ESTIMA FINA GFR IS code = 1092) sq m NOT ACCURATE CREATININE CLEARANCE IN PREDICTING GLOMERULAR FILTRATION RATE . ESTIMATED GFR I S NOT APPLICABLE FOR DIALYSIS PATIEN TS. LACTIC ACID, ARTERIAL, WHOLE [id number] 12:57:00 Test Item Value Reference Range Interpretation Comments LACTATE BLOOD 1.8 mmol/L 0.5-2.2 Specimen sligh tly ARTERIAL (2) (BEAKER) hemoly zed (test code = 2874) Effective 03/21/2016: Units/Reference Range ChangeNew: 0.5-2.2 mmol/L Previous: 5-20 mg/dLCALCIUM, [id number] 12:44:00 Test Item Value Reference Range Interpretation Comments CALCIUM IONIZED (BEAKER) (test 1.12 mmol/L 1.12-1.27 code = 698) PH, BLOOD (BEAKER) (test code = 7.45 1810) GLUCOSE-STAT [id number] 12:44:00 Test Item Value Reference Range Interpretation Comments GLUCOSE RANDOM (BEAKER) (test code 253 mg/dL 70-110 H = 652) HGB/HCT (H&H) - STAT [id number] 12:44:00 Test Item Value Reference Range Interpretation Comments HEMOGLOBIN (BEAKER) (test code = 11.9 g/dL 13.0-16.8 L 410) HEMATOCRIT (BEAKER) (test code = 35.0 % 40.0-50.0 L 411) SODIUM NA-STAT [id number] 12:44:00 Test Item Value Reference Range Interpretation Comments SODIUM (BEAKER) (test code = 381) 131 meq/L 135-148 L POTASSIUM-STAT [id number] 12:44:00 Test Item Value Reference Range Interpretation Comments POTASSIUM (BEAKER) (test code = 4.4 meq/L 3.6-5.5 379) BLOOD GAS, [id number] 12:44:00 Test Item Value Reference Range Interpretation Comments PH ARTERIAL (BEAKER) (test code = 7.45 7.35-7.45 383) PCO2 ARTERIAL (BEAKER) (test code 36 mmHg 35-45 = 384) PO2 ARTERIAL (BEAKER) (test code = 109 mmHg 80-90 H 385) O2 SATURATION ARTERIAL (BEAKER) 98.3 % 96.0-97.0 H (test code = 386) HCO3 ARTERIAL (BEAKER) (test code 25 mmol/L 21-29 = 388) BASE EXCESS ARTERIAL (BEAKER) 0.8 mmol/L -2.0-3.0 (test code = 387) PATIENT TEMPERATURE (BEAKER) (test 36.5 C code = 1818) FIO2 (BEAKER) (test code = 1819) 60.0 % OXYGEN SATURATION, [id number] 12:44:00 Test Item Value Reference Range Interpretation Comments O2 SATURATION (MEASURED) (BEAKER) 55.1 % (test code = 1455) [id number] 12:11:00 Test Item Value Reference Range Interpretation Comments ACTIVATED CLOTTING TIME 555 sec TEST ED AT [place] [address] ([facility]) (test code = NURIS Antony [place] [address]) [id number] 12:11:00 Test Item Value Reference Range Interpretation Comments ACTIVATED CLOTTING TIME 466 sec TEST ED AT [place] [address] ([facility]) (test code = NURIS [place] [address]) [id number] 12:11:00 Test Item Value Reference Range Interpretation Comments ACTIVATED CLOTTING TIME 549 sec TEST ED AT [place] [address] ([facility]) (test code = [place] [address]) [id number] 12:11:00 Test Item Value Reference Range Interpretation Comments ACTIVATED CLOTTING TIME 428 sec TEST ED AT [place] [address] ([facility]) (test code = [place] [address]) [id number] 12:11:00 Test Item Value Reference Range Interpretation Comments ACTIVATED CLOTTING TIME 423 sec TEST ED AT [place] [address] ([facility]) (test code = NURIS Antony [facility] 441) [id number] THROMBOELASTOGRAPH ([id number] 11:42:00 Test Item Value Reference Range Interpretation Comments TEG ACTIVATED CLOTTING TIME 16.2 minutes 4.0-7.0 H (BEAKER) (test code = 1407) TEG FIBRINOGEN ACTIVITY (BEAKER) 48.3 degrees 61.0-73.0 L (test code = 1408) TEG PLT. AGGREGATION (BEAKER) 71.4 MM 55.0-65.0 H (test code = 1409) TGH ACTIVATED CLOTTING TIME 16.4 minutes 4.0-7.0 H (BEAKER) (test code = 1411) TGH FIBRINOGEN ACTIVITY (BEAKER) 48.1 degrees 61.0-73.0 L (test code = 1412) TGH PLT. AGGREGATION (BEAKER) 68.8 MM 55.0-65.0 H (test code = 1413) PLATELET [id number] 11:13:00 Test Item Value Reference Range Interpretation Comments PLATELET COUNT (BEAKER) (test 66 K/CU MM 150-450 L OR patient code = 756) PROTHROMBIN [id number] 10:58:00 Test Item Value Reference Range Interpretation Comments PROTIME (BEAKER) (test code = 22.1 seconds 11.7-14.7 H 759) INR (BEAKER) (test code = 370) 1.9 <=5.9 RECOMMENDED COUMADIN/WARFARIN INR THERAPY RANGESSTANDARD DOSE: 2.0 - 3.0 Includes: PROPHYLAXIS forvenous thrombosis, systemic embolization; TREATMENT for venous thrombosis and/or pulmonary embolus.HIGH RISK: Target INR is 2.5-3.5 for patients with mechanical heart valves.[id number] 10:58:00 Test Item Value Reference Range Interpretation Comments FIBRINOGEN LEVEL (BEAKER) (test 542 mg/dl 225-434 H code = 658) [id number] 10:58:00 Test Item Value Reference Range Interpretation Comments PARTIAL THROMBOPLASTIN TIME 35.4 seconds 22.5-36.0 (BEAKER) (test code = 760) CALCIUM, [id number] 10:45:00 Test Item Value Reference Range Interpretation Comments CALCIUM IONIZED (BEAKER) (test 1.12 mmol/L 1.12-1.27 code = 698) PH, BLOOD (BEAKER) (test code = 7.44 1810) BLOOD GAS, [id number] 10:45:00 Test Item Value Reference Range Interpretation Comments PH ARTERIAL (BEAKER) (test code = 7.45 7.35-7.45 383) PCO2 ARTERIAL (BEAKER) (test code 37 mmHg 35-45 = 384) PO2 ARTERIAL (BEAKER) (test code = 64 mmHg 80-90 L 385) O2 SATURATION ARTERIAL (BEAKER) 94.5 % 96.0-97.0 L (test code = 386) HCO3 ARTERIAL (BEAKER) (test code 25 mmol/L 21-29 = 388) BASE EXCESS ARTERIAL (BEAKER) 1.0 mmol/L -2.0-3.0 (test code = 387) PATIENT TEMPERATURE (BEAKER) (test 35.9 C code = 1818) FIO2 (BEAKER) (test code = 1819) 92.0 % SODIUM NA-STAT [id number] 10:45:00 Test Item Value Reference Range Interpretation Comments SODIUM (BEAKER) (test code = 381) 128 meq/L 135-148 L GLUCOSE-STAT [id number] 10:45:00 Test Item Value Reference Range Interpretation Comments GLUCOSE RANDOM (BEAKER) (test code 260 mg/dL 70-110 H = 652) HGB/HCT (H&H) - STAT [id number] 10:45:00 Test Item Value Reference Range Interpretation Comments HEMOGLOBIN (BEAKER) (test code = 10.3 g/dL 13.0-16.8 L 410) HEMATOCRIT (BEAKER) (test code = 30.0 % 40.0-50.0 L 411) POTASSIUM-STAT [id number] 10:44:00 Test Item Value Reference Range Interpretation Comments POTASSIUM (BEAKER) (test code = 5.1 meq/L 3.6-5.5 379) POTASSIUM-STAT [id number] 10:03:00 Test Item Value Reference Range Interpretation Comments POTASSIUM (BEAKER) (test code = 5.4 meq/L 3.6-5.5 379) BLOOD GAS, [id number] 10:03:00 Test Item Value Reference Range Interpretation Comments PH ARTERIAL (BEAKER) (test code = 7.45 7.35-7.45 383) PCO2 ARTERIAL (BEAKER) (test code 39 mmHg 35-45 = 384) PO2 ARTERIAL (BEAKER) (test code = 291 mmHg 80-90 H 385) O2 SATURATION ARTERIAL (BEAKER) 99.7 % 96.0-97.0 H (test code = 386) HCO3 ARTERIAL (BEAKER) (test code 27 mmol/L 21-29 = 388) BASE EXCESS ARTERIAL (BEAKER) 2.4 mmol/L -2.0-3.0 (test code = 387) PATIENT TEMPERATURE (BEAKER) (test 36.4 C code = 1818) FIO2 (BEAKER) (test code = 1819) 75.0 % SODIUM NA-STAT [id number] 10:03:00 Test Item Value Reference Range Interpretation Comments SODIUM (BEAKER) (test code = 381) 127 meq/L 135-148 L GLUCOSE-STAT [id number] 10:03:00 Test Item Value Reference Range Interpretation Comments GLUCOSE RANDOM (BEAKER) (test code 263 mg/dL 70-110 H = 652) HGB/HCT (H&H) - STAT [id number] 10:03:00 Test Item Value Reference Range Interpretation Comments HEMOGLOBIN (BEAKER) (test code = 9.6 g/dL 13.0-16.8 L 410) HEMATOCRIT (BEAKER) (test code = 28.0 % 40.0-50.0 L 411) BLOOD GAS, [id number] 09:38:00 Test Item Value Reference Range Interpretation Comments PH ARTERIAL (BEAKER) (test code = 7.49 7.35-7.45 H 383) PCO2 ARTERIAL (BEAKER) (test code 34 mmHg 35-45 L = 384) PO2 ARTERIAL (BEAKER) (test code = 235 mmHg 80-90 H 385) O2 SATURATION ARTERIAL (BEAKER) 99.6 % 96.0-97.0 H (test code = 386) HCO3 ARTERIAL (BEAKER) (test code 27 mmol/L 21-29 = 388) BASE EXCESS ARTERIAL (BEAKER) 1.7 mmol/L -2.0-3.0 (test code = 387) PATIENT TEMPERATURE (BEAKER) (test 30.0 C code = 1818) FIO2 (BEAKER) (test code = 1819) 60.0 % SODIUM NA-STAT [id number] 09:38:00 Test Item Value Reference Range Interpretation Comments SODIUM (BEAKER) (test code = 381) 127 meq/L 135-148 L GLUCOSE-STAT [id number] 09:38:00 Test Item Value Reference Range Interpretation Comments GLUCOSE RANDOM (BEAKER) (test code 256 mg/dL 70-110 H = 652) HGB/HCT (H&H) - STAT [id number] 09:38:00 Test Item Value Reference Range Interpretation Comments HEMOGLOBIN (BEAKER) (test code = 9.4 g/dL 13.0-16.8 L 410) HEMATOCRIT (BEAKER) (test code = 28.0 % 40.0-50.0 L 411) POTASSIUM-STAT [id number] 09:37:00 Test Item Value Reference Range Interpretation Comments POTASSIUM (BEAKER) (test code = 4.8 meq/L 3.6-5.5 379) POTASSIUM-STAT [id number] 09:08:00 Test Item Value Reference Range Interpretation Comments POTASSIUM (BEAKER) (test code = 3.7 meq/L 3.6-5.5 379) BLOOD GAS, [id number] 09:08:00 Test Item Value Reference Range Interpretation Comments PH ARTERIAL (BEAKER) (test code = 7.37 7.35-7.45 383) PCO2 ARTERIAL (BEAKER) (test code 42 mmHg 35-45 = 384) PO2 ARTERIAL (BEAKER) (test code 294 mmHg 80-90 H = 385) O2 SATURATION ARTERIAL (BEAKER) 99.7 % 96.0-97.0 H (test code = 386) HCO3 ARTERIAL (BEAKER) (test code 25 mmol/L 21-29 = 388) BASE EXCESS ARTERIAL (BEAKER) -1.5 mmol/L -2.0-3.0 (test code = 387) PATIENT TEMPERATURE (BEAKER) 32.5 C (test code = 1818) FIO2 (BEAKER) (test code = 1819) 60.0 % SODIUM NA-STAT [id number] 09:08:00 Test Item Value Reference Range Interpretation Comments SODIUM (BEAKER) (test code = 381) 125 meq/L 135-148 L GLUCOSE-STAT [id number] 09:08:00 Test Item Value Reference Range Interpretation Comments GLUCOSE RANDOM (BEAKER) (test code 197 mg/dL 70-110 H = 652) HGB/HCT (H&H) - STAT [id number] 09:08:00 Test Item Value Reference Range Interpretation Comments HEMOGLOBIN (BEAKER) (test code = 8.7 g/dL 13.0-16.8 L 410) HEMATOCRIT (BEAKER) (test code = 26.0 % 40.0-50.0 L 411) CALCIUM, [id number] 08:12:00 Test Item Value Reference Range Interpretation Comments CALCIUM IONIZED (BEAKER) (test 1.06 mmol/L 1.12-1.27 L code = 698) PH, BLOOD (BEAKER) (test code = 7.45 1810) BLOOD GAS, [id number] 08:12:00 Test Item Value Reference Range Interpretation Comments PH ARTERIAL (BEAKER) (test code = 7.45 7.35-7.45 383) PCO2 ARTERIAL (BEAKER) (test code 41 mmHg 35-45 = 384) PO2 ARTERIAL (BEAKER) (test code = 196 mmHg 80-90 H 385) O2 SATURATION ARTERIAL (BEAKER) 99.4 % 96.0-97.0 H (test code = 386) HCO3 ARTERIAL (BEAKER) (test code 27 mmol/L 21-29 = 388) BASE EXCESS ARTERIAL (BEAKER) 3.3 mmol/L -2.0-3.0 H (test code = 387) PATIENT TEMPERATURE (BEAKER) (test 37.4 C code = 1818) FIO2 (BEAKER) (test code = 1819) 100.0 % SODIUM NA-STAT [id number] 08:12:00 Test Item Value Reference Range Interpretation Comments SODIUM (BEAKER) (test code = 381) 132 meq/L 135-148 L GLUCOSE-STAT [id number] 08:12:00 Test Item Value Reference Range Interpretation Comments GLUCOSE RANDOM (BEAKER) (test code 243 mg/dL 70-110 H = 652) HGB/HCT (H&H) - STAT [id number] 08:12:00 Test Item Value Reference Range Interpretation Comments HEMOGLOBIN (BEAKER) (test code = 13.4 g/dL 13.0-16.8 410) HEMATOCRIT (BEAKER) (test code = 39.0 % 40.0-50.0 L 411) POTASSIUM-STAT [id number] 08:09:00 Test Item Value Reference Range Interpretation Comments POTASSIUM (BEAKER) (test code = 4.0 meq/L 3.6-5.5 379) [id number] 04:50:00 Test Item Value Reference Range Interpretation Comments MAGNESIUM (BEAKER) (test code = 2.1 mg/dL 1.6-2.6 627) BASIC METABOLIC [id number] 04:50:00 Test Item Value Reference Range Interpretation Comments SODIUM (BEAKER) 135 meq/L 136-145 L (test code = 381) POTASSIUM (BEAKER) 4.2 meq/L 3.5-5.1 (test code = 379) CHLORIDE (BEAKER) 98 meq/L 98-107 (test code = 382) CO2 (BEAKER) (test 29 meq/L 22-29 code = 355) BLOOD UREA NITROGEN 27 mg/dL 7-21 H (BEAKER) (test code = 354) CREATININE (BEAKER) 1.18 mg/dL 0.57-1.25 (test code = 358) GLUCOSE RANDOM 289 mg/dL 70-105 H (BEAKER) (test code = 652) CALCIUM (BEAKER) 8.8 mg/dL 8.4-10.2 (test code = 697) EGFR (BEAKER) (test 63 mL/min/1.73 ESTIMA FINA GFR IS code = 1092) sq m NOT ACCURATE CREATININE CLEARANCE IN PREDICTING GLOMERULAR FILTRATION RATE . ESTIMATED GFR I S NOT APPLICABLE FOR DIALYSIS PATIEN TS. [id number] 04:49:00 Test Item Value Reference Range Interpretation Comments PARTIAL THROMBOPLASTIN TIME 56.8 seconds 22.5-36.0 H (BEAKER) (test code = 760) CBC W/PLT COUNT & AUTO [id number] 04:48:00 Test Item Value Reference Range Interpretation Comments WHITE BLOOD CELL COUNT (BEAKER) 10.3 K/ L 3.5-10.5 (test code = 775) RED BLOOD CELL COUNT (BEAKER) 4.06 M/ L 4.63-6.08 L (test code = 761) HEMOGLOBIN (BEAKER) (test code = 12.2 GM/DL 13.7-17.5 L 410) HEMATOCRIT (BEAKER) (test code = 35.5 % 40.1-51.0 L 411) MEAN CORPUSCULAR VOLUME (BEAKER) 87.4 fL 79.0-92.2 (test code = 753) MEAN CORPUSCULAR HEMOGLOBIN 30.0 pg 25.7-32.2 (BEAKER) (test code = 751) MEAN CORPUSCULAR HEMOGLOBIN CONC 34.4 GM/DL 32.3-36.5 (BEAKER) (test code = 752) RED CELL DISTRIBUTION WIDTH 12.4 % 11.6-14.4 (BEAKER) (test code = 412) PLATELET COUNT (BEAKER) (test 127 K/CU MM 150-450 L code = 756) MEAN PLATELET VOLUME (BEAKER) 11.5 fL 9.4-12.4 (test code = 754) NUCLEATED RED BLOOD CELLS 0 /100 WBC 0-0 (BEAKER) (test code = 413) NEUTROPHILS RELATIVE PERCENT 80 % (BEAKER) (test code = 429) LYMPHOCYTES RELATIVE PERCENT 12 % (BEAKER) (test code = 430) MONOCYTES RELATIVE PERCENT 7 % (BEAKER) (test code = 431) EOSINOPHILS RELATIVE PERCENT 0 % (BEAKER) (test code = 432) BASOPHILS RELATIVE PERCENT 0 % (BEAKER) (test code = 437) NEUTROPHILS ABSOLUTE COUNT 8.23 K/ L 1.78-5.38 H (BEAKER) (test code = 670) LYMPHOCYTES ABSOLUTE COUNT 1.25 K/ L 1.32-3.57 L (BEAKER) (test code = 414) MONOCYTES ABSOLUTE COUNT (BEAKER) 0.74 K/ L 0.30-0.82 (test code = 415) EOSINOPHILS ABSOLUTE COUNT 0.01 K/ L 0.04-0.54 L (SAMMIAKER) (test code = 416) BASOPHILS ABSOLUTE COUNT (SAMMIAKER) 0.02 K/ L 0.01-0.08 (test code = 417) IMMATURE GRANULOCYTES-RELATIVE 0 % 0-1 PERCENT (KIRA) (test code = 2801) POCT-GLUCOSE [id number] 23:20:00 Test Item Value Reference Range Interpretation Comments POC-GLUCOSE METER 262 mg/dL 70-110 H TESTED AT [facility] [address] (KIRA) (test code = [place] 1538) [id number] RAD, CHEST, 1 VIEW, NON [id number] 22:50:00Reason for exam:->Verfiy central line Should this [...] opacities in the lungs, left greater than ri ght.Stable cardiomediastinal silhouette.No acute osseous abnormality. Signed: Alice Moore MDReport Verified Date/Time: 07/29/2017 22:50:59 Reading Location: [address] Ortho Consult Reading Room TROPONIN [id number] 21:46:00 Test Item Value Reference Range Interpretation Comments TROPONIN I (KIRA) (test code = 27.18 ng/mL 0.00-0.03 397) Troponin I (TnI) levels must be interpreted [...] acidosis, acute neurological disease, and persistent tachyarrhythmia.HEMOGLOBIN [id number] 21:42:00 Test Item Value Reference Range Interpretation Comments HEMOGLOBIN A1C ([facility]) (test code = 12.0 % 4.3-6.1 H 368) POCT-GLUCOSE [id number] 21:01:00 Test Item Value Reference Range Interpretation Comments POC-GLUCOSE METER 249 mg/dL 70-110 H TESTED AT [facility] [address] ([facility]) (test code = NUR[place] 1538) [id number] POCT-GLUCOSE [id number] 17:57:00 Test Item Value Reference Range Interpretation Comments POC-GLUCOSE METER 268 mg/dL 70-110 H TESTED AT [facility] [address] ([facility]) (test code = GILRI [place] 1538) [id number] PLATELET AGGREGATION: FUNCTION [id number] 17:11:00 Test Item Value Reference Range Interpretation Comments WEAK ADP 100 % 60-91 H RESULT([facility]) (test code = 2135) PLATELET FUNCTION 60-100% indicates SCREEN INTERP ([facility]) normal platelet (test code = 2173) function [id number] Demar Arteaga MD ([facility]) (test code = (electronic signature) 6134) PLATELET COUNT AGG 149 K/CU MM 150-450 L ([facility]) (test code = 2656) TROPONIN [id number] 14:50:00 Test Item Value Reference Range Interpretation Comments TROPONIN I ([facility]) (test code = 32.64 ng/mL 0.00-0.03 [facility]) Troponin I (TnI) levels must be interpreted [...] neurological disease, and persistent tachyarrhythmia.TSH/FREE T4 IF [id number] 14:34:00 Test Item Value Reference Range Interpretation Comments THYROID STIMULATING HORMONE 0.62 uIU/mL 0.35-4.94 ([facility]) (test code = 772) [id number] 14:02:00 Test Item Value Reference Range Interpretation Comments POTASSIUM ([facility]) (test code = 3.8 meq/L 3.5-5.1 379) [id number] 12:50:00 Test Item Value Reference Range Interpretation Comments PARTIAL THROMBOPLASTIN TIME 53.8 seconds 22.5-36.0 H ([facility]) (test code = 760) POCT-GLUCOSE [id number] 12:02:00 Test Item Value Reference Range Interpretation Comments POC-GLUCOSE METER 225 mg/dL 70-110 H TESTED AT [place] [address] ([facility]) (test code = NURIS Antony [facility] 1538) [id number] RAD, CHEST, 1 VIEW, NON [id number] 10:25:00Reason for exam:->IABPShould this be performed at the bedside?->YesFINAL REPORT Chest one view compared to July 28, 2017 Discussion: IABP marker is at the aortic knob. Bilateral interstitial opacities are similar. No effusion or pneumothorax. Signed: Jaida Terrazas Verified Date/Time: 07/29/2017 10:25:37 Reading Location: [facility] Radiology Reading Room POCT-GLUCOSE [id number] 08:23:00 Test Item Value Reference Range Interpretation Comments POC-GLUCOSE METER 229 mg/dL 70-110 H TESTED AT [place] [address] ([facility]) (test code = NURIS Antony [facility] 1538) [id number] POCT-GLUCOSE [id number] 06:48:00 Test Item Value Reference Range Interpretation Comments POC-GLUCOSE METER 204 mg/dL 70-110 H TESTED AT [place] [address] ([facility]) (test code = NUR[place] 1538) [address] CBC W/PLT COUNT & AUTO [id number] 05:33:00 Test Item Value Reference Range Interpretation Comments WHITE BLOOD CELL COUNT ([facility]) 13.1 K/ L 3.5-10.5 H (test code = 775) RED BLOOD CELL COUNT ([facility]) 4.43 M/ L 4.63-6.08 L (test code = 761) HEMOGLOBIN ([facility]) (test code = 13.4 GM/DL 13.7-17.5 L 410) HEMATOCRIT (BEAKER) (test code = 38.9 % 40.1-51.0 L 411) MEAN CORPUSCULAR VOLUME (BEAKER) 87.8 fL 79.0-92.2 (test code = 753) MEAN CORPUSCULAR HEMOGLOBIN 30.2 pg 25.7-32.2 (BEAKER) (test code = 751) MEAN CORPUSCULAR HEMOGLOBIN CONC 34.4 GM/DL 32.3-36.5 (BEAKER) (test code = 752) RED CELL DISTRIBUTION WIDTH 12.4 % 11.6-14.4 (BEAKER) (test code = 412) PLATELET COUNT (BEAKER) (test 144 K/CU MM 150-450 L code = 756) MEAN PLATELET VOLUME (BEAKER) 12.7 fL 9.4-12.4 H (test code = 754) NUCLEATED RED BLOOD CELLS 0 /100 WBC 0-0 (BEAKER) (test code = 413) NEUTROPHILS RELATIVE PERCENT 85 % (BEAKER) (test code = 429) LYMPHOCYTES RELATIVE PERCENT 9 % (BEAKER) (test code = 430) MONOCYTES RELATIVE PERCENT 6 % (BEAKER) (test code = 431) EOSINOPHILS RELATIVE PERCENT 0 % (BEAKER) (test code = 432) BASOPHILS RELATIVE PERCENT 0 % (BEAKER) (test code = 437) NEUTROPHILS ABSOLUTE COUNT 11.10 K/ L 1.78-5.38 H (BEAKER) (test code = 670) LYMPHOCYTES ABSOLUTE COUNT 1.12 K/ L 1.32-3.57 L (BEAKER) (test code = 414) MONOCYTES ABSOLUTE COUNT (BEAKER) 0.76 K/ L 0.30-0.82 (test code = 415) EOSINOPHILS ABSOLUTE COUNT 0.00 K/ L 0.04-0.54 L (BEAKER) (test code = 416) BASOPHILS ABSOLUTE COUNT (BEAKER) 0.02 K/ L 0.01-0.08 (test code = 417) IMMATURE GRANULOCYTES-RELATIVE 0 % 0-1 PERCENT (BEAKER) (test code = 2801) [id number] 05:15:00 Test Item Value Reference Range Interpretation Comments MAGNESIUM (BEAKER) (test code = 2.4 mg/dL 1.6-2.6 627) BASIC METABOLIC [id number] 05:15:00 Test Item Value Reference Range Interpretation Comments SODIUM (BEAKER) 135 meq/L 136-145 L (test code = 381) POTASSIUM (BEAKER) 3.9 meq/L 3.5-5.1 (test code = 379) CHLORIDE (BEAKER) 99 meq/L 98-107 (test code = 382) CO2 (BEAKER) (test 26 meq/L 22-29 code = 355) BLOOD UREA NITROGEN 25 mg/dL 7-21 H (BEAKER) (test code = 354) CREATININE (BEAKER) 1.17 mg/dL 0.57-1.25 (test code = 358) GLUCOSE RANDOM 241 mg/dL 70-105 H (BEAKER) (test code = 652) CALCIUM (BEAKER) 8.8 mg/dL 8.4-10.2 (test code = 697) EGFR (BEAKER) (test 64 mL/min/1.73 ESTIMA FINA GFR IS code = 1092) sq m NOT ACCURATE CREATININE CLEARANCE IN PREDICTING GLOMERULAR FILTRATION RATE . ESTIMATED GFR I S NOT APPLICABLE FOR DIALYSIS PATIANITA TS. LIPID [id number] 05:15:00 Test Item Value Reference Range Interpretation Comments TRIGLYCERIDES (BEAKER) (test code = 152 mg/dL 540) CHOLESTEROL (BEAKER) (test code = 188 mg/dL 631) HDL CHOLESTEROL (BEAKER) (test code 31 mg/dL = 976) LDL CHOLESTEROL CALCULATED (BEAKER) 127 mg/dL (test code = 633) Triglyceride Reference Range: Low Risk <150 Borderline 150-199 High Risk 200-499 Very High Risk >=500Cholesterol Reference Range: Low Risk <200 Borderline 200-239 High Risk >240HDL Cholesterol Reference Range: Low Risk >=60 High Risk <40LDL Cholesterol Reference Range: Optimal <100 Near Optimal 100-129 Borderline 130-159 High 160-189 Very High >=[id number] 05:05:00 Test Item Value Reference Range Interpretation Comments PARTIAL THROMBOPLASTIN TIME 53.8 seconds 22.5-36.0 H (BEAKER) (test code = 760) [id number] 22:36:00 Test Item Value Reference Range Interpretation Comments MAGNESIUM (BEAKER) (test code = 1.8 mg/dL 1.6-2.6 627) BASIC METABOLIC [id number] 22:36:00 Test Item Value Reference Range Interpretation Comments SODIUM (BEAKER) 136 meq/L 136-145 (test code = 381) POTASSIUM (BEAKER) 4.1 meq/L 3.5-5.1 (test code = 379) CHLORIDE (BEAKER) 99 meq/L 98-107 (test code = 382) CO2 (BEAKER) (test 29 meq/L 22-29 code = 355) BLOOD UREA NITROGEN 27 mg/dL 7-21 H (BEAKER) (test code = 354) CREATININE (BEAKER) 1.31 mg/dL 0.57-1.25 H (test code = 358) GLUCOSE RANDOM 242 mg/dL 70-105 H (BEAKER) (test code = 652) CALCIUM (BEAKER) 8.9 mg/dL 8.4-10.2 (test code = 697) EGFR (BEAKER) (test 56 mL/min/1.73 ESTIMA [place] GFR IS code = 1092) sq m NOT ACCURATE CREATININE CLEARANCE IN PREDICTING GLOMERULAR FILTRATION RATE . ESTIMATED GFR I S NOT APPLICABLE FOR DIALYSIS PATIEN TS. RAD, CHEST, 1 VIEW, NON [id number] 22:14:00While IABP in place and following each repositioning of IABPReason for exam:->While IABP in placeand following each repositioning of IABPShould this be performed at the bedside?->YesFINAL REPORT History: IABP. Comparison: None. Findings: A [...] abnormality. Signed: Kendrick Roman MDReport Verified Date/Time: 07/28/2017 22:14:48 Reading Location: [address] Reading Room Electronically signed by: KENDRICK ROMAN M.D.on 07/28/2017 10:14 PMPOCT-GLUCOSE [id number] 22:01:00 Test Item Value Reference Range Interpretation Comments POC-GLUCOSE METER 238 mg/dL 70-110 H TESTED AT [place] [address] ([facility]) (test code = [place] 1538) [id number] 21:15:00 Test Item Value Reference Range Interpretation Comments PARTIAL THROMBOPLASTIN TIME 80.4 seconds 22.5-36.0 H ([facility]) (test code = 760) Prior to initiating heparinCBC (HEMOGRAM ONLY)[id number] 21:05:00 Test Item Value Reference Range Interpretation Comments WHITE BLOOD CELL COUNT ([facility]) 9.9 K/ L 3.5-10.5 (test code = 775) RED BLOOD CELL COUNT ([facility]) 4.72 M/ L 4.63-6.08 (test code = 761) HEMOGLOBIN (AKER) (test code = 14.2 GM/DL 13.7-17.5 410) HEMATOCRIT ([facility]) (test code = 41.7 % 40.1-51.0 411) MEAN CORPUSCULAR VOLUME ([facility]) 88.3 fL 79.0-92.2 (test code = 753) MEAN CORPUSCULAR HEMOGLOBIN 30.1 pg 25.7-32.2 (AKER) (test code = 751) MEAN CORPUSCULAR HEMOGLOBIN CONC 34.1 GM/DL 32.3-36.5 (AKER) (test code = 752) RED CELL DISTRIBUTION WIDTH 12.5 % 11.6-14.4 (AKER) (test code = 412) PLATELET COUNT ([facility]) (test 169 K/CU MM 150-450 code = 756) MEAN PLATELET VOLUME (AKER) 11.9 fL 9.4-12.4 (test code = 754) NUCLEATED RED BLOOD CELLS 0 /100 WBC 0-0 ([facility]) (test code = 413) [id number] 19:52:00 Test Item Value Reference Range Interpretation Comments ACTIVATED CLOTTING TIME 323 sec TEST ED AT [place] [address] ([facility]) (test code = [place] 441) [id number]
[2022-05-07 10:37] LABS: Absolute Lymphocytes (CBC) 1.3 K/uL (0.7-4.9); Lymphocytes % 14.9 % (15.3-44.8); MPV 9.9 fL (7.6-11.3); RBC Red Blood Cell Count 4.68 M/uL (4.33-5.43)
[2022-05-07 10:55] LABS: Albumin 3.3 g/dL (3.4-5.0); Bilirubin Total 0.5 mg/dL (0.2-1.0); Protein, Total 7.5 g/dL (6.4-8.2)
--- NOTE | 2022-05-07 11:05 | RAD REPORT ---
EXAM DESCRIPTION: RAD - Chest Pa And Lat (2 Views) - 05/07/2022 10:37 am CLINICAL HISTORY: cough, fever COMPARISON: Portable 05/07/2018 TECHNIQUE: Frontal and lateral views of the chest were obtained. FINDINGS: The lungs are clear. Interstitial pattern matches comparison. Sternotomy wires remain in place. No hilar mass or lymphadenopathy seen. Heart size is normal and central vasculature is within normal limits. No pleural effusion or pneumothorax seen. No acute bony finding noted. No aortic ab normality. IMPRESSION: No acute cardiopulmonary process. No significant change from comparison study.
[2022-05-07] MEDS ORDERED: NA CHLORIDE 0.9% 500 ML ONE (11:18)
--- NOTE | 2022-05-07 13:36 | EDPHYS ---
Physician Documentation [facility] Name: Juan Gore Age: 61 yrs Sex: Male : 1960 Arrival Date: 05/07/2022 Time: 09:26 Bed 4 Private MD: Richardson Handley ED Physician Antoine Aguirre HPI: 05/07 09:36 This 61 yrs old Male presents to ER via Ambulatory with complaints of chills, Sore jmm Throat, Fever, Cough, Chest Congestion. 09:36 Onset: The symptoms/episode began/occurred gradually. Modifying factors: there are no m obvious modifying factors. This is a 61 year old male with a history of dm, htn, hypothyroidism, cad that presents to the ED with complaints of cough, congestion beginning approx 1 week ago. Patient prescribed azithromycin with little relief. . Historical: - Allergies: 09:32 No Known Allergies; aa5 - PMHx: 09:31 Diabetes - IDDM; Hypertension; Hypothyroidism; Myocardial infarction; aa5 - PSHx: 09:40 heart stents; triple bypass; aa5 - Immunization history:: Adult Immunizations unknown. - Social history:: Smoking status: Patient denies any tobacco usage or history of. ROS: 09:36 Constitutional: Positive for body aches, chills. jmm 09:36 Respiratory: Positive for cough. 09:36 All other systems are negative. Exam: 09:36 Constitutional: This is a well developed, well nourished patient who is awake, alert, jmm and in no acute distress. Head/Face: atraumatic. Eyes: EOMI, no conjunctival erythema appreciated 09:36 Neck: Trachea midline, Supple Chest/axilla: Normal chest wall appearance and motion. Cardiovascular: Regular rate and rhythm. No edema appreciated Respiratory: Normal respirations, no respiratory distress appreciated Abdomen/GI: Non distended, soft Back: Normal ROM Skin: General appearance color normal MS/ Extremity: Moves all extremities, no obvious deformities appreciated, no edema noted to the lower extremities Neuro: Awake and alert Psych: Behavior is normal, Mood is normal, Patient is cooperative and pleasant 09:36 ENT: Posterior pharynx: erythema, that is moderate. Vital Signs: 09:32 BP 182 / 97; Pulse 84; Resp 20 S; Temp 98.2(O); Pulse Ox 98% on R/A; Weight 99.79 kg aa5 (R); Height 6 ft. 0 in. (182.88 cm) (R); 10:00 BP 167 / 88; Pulse 78; Resp 17; Pulse Ox 97% ; bp 11:00 BP 164 / 79; Pulse 75; Resp 16; Pulse Ox 93% ; bp 09:32 Body Mass Index 29.84 (99.79 kg, 182.88 cm) aa5 MDM: 09:[address] [facility] 13:35 Data reviewed: vital signs, nurses notes. Counseling: I had a detailed discussion with jaqueline the patient and/or guardian regarding: the historical points, exam findings, and any diagnostic results supporting the discharge/admit diagnosis, radiology results, the need for outpatient follow up, to return to the emergency department if symptoms worsen or persist or if there are any questions or concerns that arise at home. 05/07 10:03 Order name: CBC with Diff; Complete Time: 10:49 [facility] 05/07 10:03 Order name: CMP; Complete Time: 11:01 [facility] 05/07 10:03 Order name: Lactate; Complete Time: 11:01 [facility] 05/07 10:05 Order name: Blood Culture Adult (2) [facility] 05/07 10:06 Order name: Influenza Screen (a \\T\\ B); Complete Time: 11:59 [facility] 05/07 10:06 Order name: SARS-COV-2 RT PCR (Document "Date of Onset" if Symptomatic); Complete Time: [facility] 12:37 05/07 10:03 Order name: Saline Lock; Complete Time: 10:31 [facility] 05/07 10:06 Order name: Chest Pa And Lat (2 Views) XRAY; Complete Time: 11:18 [facility] Administered Medications: 11:10 Drug: NS 0.9% 500 ml Route: IV; Rate: bolus; Site: right forearm; bp Disposition Summary: 05/07/22 13:35 Discharge Ordered Location: [facility] Condition: Stable [facility] Diagnosis - Acute upper respiratory infection, unspecified [facility]up[facility] - With: Private Physician - When: 2 - 3 days - Reason: Recheck today's complaints, Continuance of care, Re-evaluation by your physician Discharge Instructions: - Discharge Summary Sheet [facility] - Upper Respiratory Infection, Adult [facility] Forms: - Medication Reconciliation Form [facility] - Thank You Letter jmm - Antibiotic Education jmm - Prescription Opioid Use jm Prescriptions: - promethazine-DM - take 5 milliliter by ORAL route every 4-6 hours; 120 milliliter; Refills: 0, jmm Product Selection Permitted Signatures: Dispatcher [employer] Antoine Newton MD MD cha Mickail, Joel, PA PA jmm Calderon, Audri RN RN aa5 Art Schmitz RN RN bp
--- NOTE | 2022-05-07 13:36 | ER ---
Nurse's Notes [facility] Name: Juan Gore Age: 61 yrs Sex: Male : 1960 Arrival Date: 05/07/2022 Time: 09:26 Bed 4 Private MD: Richardson Handley Diagnosis: Acute upper respiratory infection, unspecified Presentation: 05/07 09:32 Chief complaint: Patient states: cough, congestion, fatigue, fever, sore throat, and aa5 chills that began 1 week ago. Pt reports he started taking Z-pack 3 days ago. Coronavirus screen: cough unrelated to allergies, fatigue, sore throat. Ebola Screen: Patient denies travel to an Ebola-affected area in the 21 days before illness onset. Initial Sepsis Screen: Does the patient meet any 2 criteria? No. Patient's initial sepsis screen is negative. Does the patient have a suspected source of infection? Yes:. Risk Assessment: Do you want to hurt yourself or someone else? Patient reports no desire to harm self or others. Onset of symptoms was April 2022. 09:32 Acuity: CHRISTINE 3 aa5 09:32 Method Of Arrival: Ambulatory aa5 Triage Assessment: :40 General: Appears distressed, uncomfortable, ill, Behavior is calm, cooperative, bp appropriate for age. Pain: Denies pain. EENT: Throat is reddened. Neuro: No deficits noted. Cardiovascular: No deficits noted. Respiratory: Reports cough that is. GI: No signs and/or symptoms were reported involving the gastrointestinal system. : No signs and/or symptoms were reported regarding the genitourinary system. Derm: No deficits noted. Musculoskeletal: No deficits noted. Historical: - Allergies: :32 No Known Allergies; aa5 - PMHx: 09:31 Diabetes - IDDM; Hypertension; Hypothyroidism; Myocardial infarction; aa5 - PSHx: 09:40 heart stents; triple bypass; aa5 - Immunization history:: Adult Immunizations unknown. - Social history:: Smoking status: Patient denies any tobacco usage or history of. Screenin:40 Abuse screen: Denies threats or abuse. Denies injuries from another. Nutritional bp screening: No deficits noted. Tuberculosis screening: No symptoms or risk factors identified. Fall Risk None identified. Assessment: :40 General: SEE TRIAGE NOTE. bp 11:00 Reassessment: No changes from previously documented assessment. Patient and/or family bp updated on plan of care and expected duration. Pain level reassessed. Vital Signs: 09:32 BP 182 / 97; Pulse 84; Resp 20 S; Temp 98.2(O); Pulse Ox 98% on R/A; Weight 99.79 kg aa5 (R); Height 6 ft. 0 in. (182.88 cm) (R); 10:00 BP 167 / 88; Pulse 78; Resp 17; Pulse Ox 97% ; bp 11:00 BP 164 / 79; Pulse 75; Resp 16; Pulse Ox 93% ; bp 09:32 Body Mass Index 29.84 (99.79 kg, 182.88 cm) aa5 ED Course: 09:26 Patient arrived in ED. am2 09:26 Richardson Handley is Private Physician. am2 09:26 Inder Loco PA is PHCP. jmm 09:27 Antoine Aguirre MD is Attending Physician. jmm 09:32 Arm band placed on Patient placed in an exam room, on a stretcher. aa5 09:36 Thomas Andrews, RN is Primary Nurse. jd3 09:40 Patient has correct armband on for positive identification. Bed in low position. Call bp light in reach. Side rails up X2. Adult w/ patient. 09:42 Triage completed. aa5 10:05 Art Schmitz, RN is Primary Nurse. bp 10:27 Inserted saline lock: 20 gauge in right forearm, using aseptic technique. Blood bp collected. 10:39 Chest Pa And Lat (2 Views) XRAY In Process Unspecified. EDMS 12:13 Assisted to bathroom. mb7 13:43 No provider procedures requiring assistance completed. IV discontinued, intact, iw bleeding controlled, No redness/swelling at site. Pressure dressing applied. Administered Medications: 11:10 Drug: NS 0.9% 500 ml Route: IV; Rate: bolus; Site: right forearm; bp Medication: 09:40 VIS not applicable for this client. bp Outcome: 13:35 Discharge ordered by . jmm 13:41 Discharged to home ambulatory, with family. iw 13:41 Condition: good 13:41 Discharge instructions given to patient, Instructed on discharge instructions, follow up and referral plans. medication usage, Demonstrated understanding of instructions, follow-up care, medications, Prescriptions given X 1. 13:42 Patient left the ED. iw Signatures: Dispatcher [employer] EDMS Inder Loco PA PA jmm Williams, Irene, RN RN iw Calderon, Audri RN RN aa5 Jennifer Valentin am Thomas Andrews RN RN jd3 Art Schmitz RN RN [place] [id number]
[2022-05-07 13:55] VITALS: TEMP 98.2
[2022-05-07 13:59] VITALS: BP 164/79; O2SAT 93
== END 2022-05-07 13:42 | disposition home or self-care (01) ==
LOC: ER 09:25
DX: J06.9 Acute upper respiratory infection, unspecified (principal); I10 Essential (primary) hypertension; Z95.1 Presence of aortocoronary bypass graft; Z20.822 Contact with and (suspected) exposure to COVID-19; Z95.818 Presence of other cardiac implants and grafts
CPT/HCPCS: 87040 ×2; 85025; 36415; 83605; 80053; 87804 ×2; 71046; U0003; J7040; 99284

== ENCOUNTER 2023-09-20 11:53 | Inpatient (IN) | payer BC, OTHER ==
--- OUTSIDE RECORDS SUMMARY | 2023-09-20 12:00 | XMS REPORT | Continuity of Care Document ---
:1960 Author Organization [facility] t Address [address] [facility] [address] [place] [address] Care Team Providers Name Role Phone THEODORA PINEDA Primary Care Physician Unavailable RADIOLOGY Attending Clinician Unavailable Radiology Attending Clinician Unavailable BENNETT WASHINGTON Attending Clinician Unavailable SAURABH PAGE Attending Clinician Unavailable THEODORA PINEDA Admitting Clinician Unavailable SAURABH PAGE Admitting Clinician Unavailable Payers Payer Name Policy Type Policy Number Effective Date Expiration Date [facility] [id number] 2019 00:00:00 Problems Condition Condition Condition Status Onset Resolution Last Treating Co mments Source Name Details Category Date Date Treatment Clinician Date Paroxysmal Paroxysmal Disease [facility] 08[facility]16 [facility] fibrillati fibrillati 00:00: Me dical on on 00 Center Neuropathy Neuropathy Disease [facility] n[facility] 08[facility] Medical 00 Center Stage 2 Stage [address] [facility] chronic chronic nce 08-16 [facility] kidney kidney 00:00: Medical disease disease 00 Center Uncontroll Uncontroll Disease [facility]ur[facility] ed type 2 ed type 2 nce 08-01 [facility] diabetes diabetes 00:00: Medica l mellitus mellitus 00 Center with with hyperglyce hyperglyce ninoska ninoska CAD CAD Disease Recurre [facility] (coronary (coronary nce 07-29 [facility] artery artery 00:00: Medical disease), disease), 00 Cent [facility] coronary coronary artery artery Type 2 Type [address] [facility] diabetes diabetes nce 07-29 [facility] mellitus mellitus 00:00: Medica l with other with other 00 Ce nter cryptologic linguist cryptologic linguist y y complicati complicati on on Mixed Mixed Disease Recurre [facility] hyperlipid hyperlipid nce 07-29 Callie kes emia emia 00:00: Medical 00 Center STEMI (ST STEMI (ST Disease [facility]re [facility] elevation elevation cte 07-28 [facility] myocardial myocardial 00:00: Me dical infarction infarction 00 Ce nter ) ) Essential Essential Disease Recurre [facility] hypertensi hypertensi [facility] kes on on Medical Center Allergies, Adverse Reactions, Alerts Allergy Allergy Status Severity Reaction(s) Onset Inactive Treating Comm ents Source Name Type Date Date Clinician NO KNOWN Allergy Active [facility] NO KNOWN Drug Active [facility] ALLERGIE Class ity [facility] Medical [place] Social History Social Habit Start Date Stop Date Quantity Comments Source Exposure to 2022-05-20 2022-05-30 [facility] sure [facility] SARS-CoV-2 00:00:00 17:02:00 [facility] (event) Branch Tobacco use and 2017-07-29 2017-07-29 Smokeless tobacco [facility] exposure [facility]00 [facility]00[facility]00 non-user [facility] Center Sex Assigned At [birth year] [facility] 00:00:00 00:00:00 Medical Center Smoking Status Start Date Stop Date Source Tobacco smoking consumption [facility] Never smoked tobacco [facility] Medications Ordered Filled Start Stop Current Ordering Indication Dosage Frequency Signature Comments Components Source Medication Medication Date Date Medication? Clinician (SIG) Name Name montelukast 2016-11 Yes 10mg QD Take [address] [facility] [address] (SINGULAIR) 0-03 by mouth Luke s 10 mg 09:44: nightly. Medical tablet 21 Center pregabalin 2016-11 Yes 75mg [id number] Take [address] [facility] (LYRICA) 75 0-03 [id number] by mouth 3 [facility] MG capsule 09:44: 3D (three) Medi jovanny 21 times Center daily. metFORMIN Yes 500mg Take 1 [facility] (GLUCOPHAGE 08-09 tablet [facility] ) 500 MG 00:00: (500 mg Medica l tablet 00 total) by Center mouth 2 (two) times daily with breakfast and dinner. insulin 2017 Yes 30U Q.5D Inject 0.[address] detemir 9-22 mLs (30 [facility] (LEVEMIR) 00:00: Units Medical 100 unit/mL 00 total) Center (3 mL) InPn subcutaneo injection usly 2 (two) times daily. insulin Yes 8U Inject [facility] lispro 200 9-22 8-20 Units Nuvia es unit/mL (3 00:00: subcutaneo M edical mL) InPn 00 usly 3 Center (three) times daily before meals. Procedures This patient has no known procedures. Encounters Start End Encounter Admission Attending Care Care Encounter Source Date/Time Date/Time Type Type Clinicians Facility Department ID 2022-05-30 2022-05-30 Outpatient R RADIOLOGY [facility] [id number] [facility] 17:02:26 23:59:00 ity [facility] 2022-05-30 2022-05-30 Hospital Radiology [facility] [id number] [facility] 17:00:00 23:59:00 Encounter [place] [id number] [id number] [facility] [id number] [facility] [address] [place] Results Test Description Test Time Test Comments Results Result Comments Source POCT-ACT 2017-10-08 03:05:00 Test Item Value Reference Range Interpretation Comme nts ACTIVATED CLOTTING TIME (BEAKER) (test 120 sec TESTED AT [facility] [address] code = 441) [facility] 7703 0 B-TYPE NATRIURETIC FACTOR (BNP)2017-08-16 10:44:00 Test Item Value Reference Range Interpretation Comments B-TYPE NATRIURETIC PEPTIDE (BEAKER) 456 pg/mL 0-100 H (test code = 700) [id number] 10:36:00 Test Item Value Reference Range Interpretation Comments MAGNESIUM (BEAKER) (test code = 2.0 mg/dL 1.6-2.6 627) BASIC METABOLIC [id number] 10:36:00 Test Item Value Reference Range Interpretation [...] NOT APPLICABLE FOR DIALYSIS PATIEN TS. POCT-GLUCOSE [id number] 13:51:00 Test Item Value Reference Range Interpretation Comments POC-GLUCOSE METER 272 mg/dL 70-110 H TESTED AT [facility] 6720 [facility] (test code = [facility] 1538) [address] POCT-GLUCOSE [id number] 08:46:00 Test Item Value Reference Range Interpretation Comments POC-GLUCOSE METER 205 mg/dL 70-110 H TESTED AT [place] [address] ([facility]) (test code = [facility] 1538) [address] BASIC METABOLIC [id number] 07:46:00 Test Item Value Reference Range Interpretation [...] PATIEN TS. CBC W/PLT COUNT & AUTO [id number] 07:19:00 Test Item Value Reference Range Interpretation [...] EOSINOPHILS ABSOLUTE COUNT 0.12 K/ L 0.04-0.54 (AKER) (test code = 416) BASOPHILS ABSOLUTE COUNT (AKER) 0.03 K/ L 0.01-0.08 (test code = 417) IMMATURE GRANULOCYTES-RELATIVE 1 % 0-1 PERCENT ([facility]) (test code = 2801) POCT-GLUCOSE [id number] 21:01:00 Test Item Value Reference Range Interpretation Comments POC-GLUCOSE METER 189 mg/dL 70-110 H TESTED AT [facility] 67 ([facility]) (test code = NURIS Antony [facility] 1538) [address] POCT-GLUCOSE [id number] 17:30:00 Test Item Value Reference Range Interpretation Comments POC-GLUCOSE METER 260 mg/dL 70-110 H TESTED AT [place] [address] ([facility]) (test code = NURIS Antony [facility] 1538) [address] POCT-GLUCOSE [id number] 12:53:00 Test Item Value Reference Range Interpretation Comments POC-GLUCOSE METER 322 mg/dL 70-110 H TESTED AT [place] [address] ([facility]) (test code = GILMO Cassia [facility] 1538) [address] RAD, CHEST, 1 VIEW, NON [id number] 07:53:00Reason for exam:->acute pulmonary edema, aggressive diuresis over 24hrs.Should this be performed at the bedside?->YesFINAL REPORT HISTORY : acute pulmonary edema, aggressive diuresis over 24hrs.. Comparison: 08/07/2017 Comment: Single portable view of the chest was obtained. The cardiac silhouettesize is enlarged. There are some diffusely prominent interstitial lung markings, likely representinginterstitial edema. Interstitial pneumonitis cannot be excluded. There is some bilateral midlung linear airspace disease likely representing atelectasis versus scarring. Stable right-sided PICC line catheter is seen. The patient is status post sternotomy. No pneumothorax or pleural effusion is seen. Signed: Russell Acharya Verified Date/Time: 08/08/2017 07:53:05 Reading Location: [facility] Diagnostic Imaging Reading Room - [place] [address] POCT-GLUCOSE [id number] 07:40:00 Test Item Value Reference Range Interpretation Comments POC-GLUCOSE METER 248 mg/dL 70-110 H TESTED AT [facility] 6720 (BEAKER) (test code = NURIS [place] 1538) [address] BASIC METABOLIC [id number] 03:58:00 Test Item Value Reference Range Interpretation [...] PATIEN TS. CBC W/PLT COUNT & AUTO [id number] 03:46:00 Test Item Value Reference Range Interpretation [...] PERCENT (BEAKER) (test code = 2801) POCT-GLUCOSE [id number] 20:37:00 Test Item Value Reference Range Interpretation Comments POC-GLUCOSE METER 281 mg/dL 70-110 H TESTED AT [facility] 6720 ([facility] (test code = NURIS Antony [place] 1538) [address] POCT-GLUCOSE [id number] 17:10:00 Test Item Value Reference Range Interpretation Comments POC-GLUCOSE METER 294 mg/dL 70-110 H TESTED AT [facility] 6720 (BEAKER) (test code = NURIS Antony [place] 1538) [address] CBC W/PLT COUNT & AUTO [id number] 11:54:00 Test Item Value Reference Range Interpretation [...] = 481) RAD, CHEST, 1 VIEW, NON [id number] 10:23:00Reason for exam:->acute pulmonary edema, aggressive diuresis over 24hrs.Should this be performed at the bedside?->YesFINAL REPORT COMPARISON: 08/06/2017 TECHNIQUE: Single view of the chest FINDINGS: Mild bilateral interstitial opacities are stable. No large effusions or pneumothorax. Right-sided internal jugular central line has been removed. No other significant change. Signed: Gerson Krishnamurthy MDReport Verified Date/Time: 08/07/2017 10:23:55 Reading Location: [facility] Radiology Reading Room [facility] [id number] 09:31:00 Test Item Value Reference Range Interpretation [...] = 430 U/L 6-55 H 347) POCT-GLUCOSE [id number] 08:08:00 Test Item Value Reference Range Interpretation Comments POC-GLUCOSE METER 220 mg/dL 70-110 H TESTED AT [facility] 6720 (BEAKER) (test code = [place] 9429) [address] BASIC METABOLIC [id number] 07:41:00 Test Item Value Reference Range Interpretation [...] NOT APPLICABLE FOR DIALYSIS PATIEN TS. DIGOXIN [id number] 04:05:00 Test Item Value Reference Range Interpretation Comments DIGOXIN LEVEL (BEAKER) (test code = 0.5 ng/mL 0.8-2.0 L 669) BASIC METABOLIC [id number] 03:59:00 Test Item Value Reference Range Interpretation [...] 8.4-10.2 L (test code = 697) EGFR ([facility]) (test 65 mL/min/1.73 ESTIMA FINA GFR IS code = 1092) sq m NOT ACCURATE CREATININE CLEARANCE IN PREDICTING GLOMERULAR FILTRATION RATE . ESTIMATED GFR I S NOT APPLICABLE FOR DIALYSIS PATIEN TS. POCT-GLUCOSE [id number] 22:55:00 Test Item Value Reference Range Interpretation Comments POC-GLUCOSE METER 325 mg/dL 70-110 H Notified R Kathrine GATES/TESTED ([facility]) (test code = AT [facility] [address] [place] [address] 1538) [facility] 7703 0 POCT-GLUCOSE [id number] 19:37:00 Test Item Value Reference Range Interpretation Comments POC-GLUCOSE METER 246 mg/dL 70-110 H TESTED AT [place] [address] ([facility]) (test code = NURIS Antony [facility] 1538) [address] RAD, CHEST, 1 VIEW, NON [id number] 18:59:00Reason for exam:->PICC line placementFINAL REPORT INDICATION: PICC line placement COMPARISON: August 06, 2017 at 10:55 AM TECHNIQUE: Chest radiograph, single view, portable technique. FINDINGS / IMPRESSION: There is a new right PICC line that terminates [...] MDReport Verified Date/Time: 08/06/2017 18:59:58 Reading Location: [address] Consult Reading Room POCT-GLUCOSE [id number] 17:33:00 Test Item Value Reference Range Interpretation Comments POC-GLUCOSE METER 274 mg/dL 70-110 H TESTED AT [place] [address] ([facility]) (test code = NURIS Antony [facility] 1538) [address] POCT-GLUCOSE [id number] 17:12:00 Test Item Value Reference Range Interpretation Comments POC-GLUCOSE METER 223 mg/dL 70-110 H TESTED AT [facility] 6720 ([facility]) (test code = NURIS Antony [facility] 1538) [address] B-TYPE NATRIURETIC FACTOR (BNP)2017-08-06 15:08:00 Test Item Value Reference Range Interpretation Comments B-TYPE NATRIURETIC PEPTIDE 2043 pg/mL 0-100 H ([facility]) (test code = 700) [id number] 15:00:00 Test Item Value Reference Range Interpretation Comments POTASSIUM ([facility]) (test code = 3.9 meq/L 3.5-5.1 379) 8 hours after PO replacement completedPOCT-GLUCOSE [id number] 14:03:00 Test Item Value Reference Range Interpretation Comments POC-GLUCOSE METER 347 mg/dL 70-110 H Notified Cassia Chisholm MD/TESTED ([facility]) (test code = AT [facility] 67[address] [facility] 1538) [facility] 7703 0 POCT-GLUCOSE [id number] 13:08:00 Test Item Value Reference Range Interpretation Comments POC-GLUCOSE METER 359 mg/dL 70-110 H Notified Cassia Chisholm MD/TESTED ([facility]) (test code = AT [place] [address]) [facility] 7703 0 RAD, CHEST, 1 VIEW, NON [id number] 11:39:00Reason for exam:->acute pulmonary edema, aggressive diuresis [...] mid to lower lungs likely reflect scarring or atelectasis, unchanged. No new consolidation. No pneumothorax, or large effusion. Signed: Hermelindo Peck Verified Date/Time: 08/06/2017 11:39:35 Reading Location: [facility] Radiology Reading Room POCT-GLUCOSE [id number] 11:21:00 Test Item Value Reference Range Interpretation Comments POC-GLUCOSE METER 368 mg/dL 70-110 H TESTED AT [place] [address] ([facility]) (test code = NURIS Antony [place] 1538) [address] POCT-GLUCOSE [id number] 09:31:00 Test Item Value Reference Range Interpretation Comments POC-GLUCOSE METER 270 mg/dL 70-110 H TESTED AT [place] [address] ([facility]) (test code = [facility] Cassia [facility] 1538) [address] [id number] 08:45:00 Test Item Value Reference Range Interpretation Comments PARTIAL THROMBOPLASTIN TIME 45.7 seconds 22.5-36.0 H (BEAKER) (test code = 760) POCT-GLUCOSE [id number] 08:26:00 Test Item Value Reference Range Interpretation Comments POC-GLUCOSE METER 200 mg/dL 70-110 H TESTED AT [place] [address] (BEAKER) (test code = [facility] Cassia [place] 1538) [address] (MANUAL DIFFERENTIAL)2017-08-06 08:22:00 Test Item Value Reference [...] = 478) CBC W/PLT COUNT & AUTO [id number] 08:18:00 Test Item Value Reference Range Interpretation [...] H PERCENT (BEAKER) (test code = 2801) [id number] 06:55:00 Test Item Value Reference Range Interpretation Comments PARTIAL THROMBOPLASTIN TIME 110.4 seconds 22.5-36.0 H (BEAKER) (test code = 760) POCT-GLUCOSE [id number] 06:13:00 Test Item Value Reference Range Interpretation Comments POC-GLUCOSE METER 116 mg/dL 70-110 H TESTED AT [facility] 67 ([facility]) (test code = [facility] 1538) [address] POCT-GLUCOSE [id number] 05:14:00 Test Item Value Reference Range Interpretation Comments POC-GLUCOSE METER 97 mg/dL 70-110 TESTED AT [place] [address] ([facility]) (test code = [facility] [address] 1538) POCT-GLUCOSE [id number] 04:45:00 Test Item Value Reference Range Interpretation Comments POC-GLUCOSE METER 84 mg/dL 70-110 TESTED AT [facility] 67 ([facility]) (test code = [facility] [address] 1538) HEPATITIS PANEL, [id number] 04:24:00 Test Item Value Reference Range Interpretation Comments HEPATITIS A IGM ANTIBODY (BEAKER) Nonreactive Nonreactive (test code = 498) HEPATITIS B CORE IGM ANTIBODY Nonreactive Nonreactive (BEAKER) (test code = 645) HEPATITIS C ANTIBODY (BEAKER) Nonreactive Nonreactive (test code = 367) HEPATITIS B SURFACE ANTIGEN (2) Nonreactive Nonreactive (BEAKER) (test code = 2585) BASIC METABOLIC [id number] 04:02:00 Test Item Value Reference Range Interpretation [...] S NOT APPLICABLE FOR DIALYSIS PATIEN TS. [id number] 04:00:00 Test Item Value Reference Range Interpretation Comments PHOSPHORUS (BEAKER) (test code = 3.0 mg/dL 2.3-4.7 604) [id number] 04:00:00 Test Item Value Reference Range Interpretation Comments MAGNESIUM (BEAKER) (test code = 2.1 mg/dL 1.6-2.6 627) LACTIC ACID, VENOUS, WHOLE [id number] 03:59:00 Test Item Value Reference Range Interpretation Comments LACTATE BLOOD VENOUS (2) (BEAKER) 0.9 mmol/L 0.5-2.2 (test code = 2872) Effective 03/21/2016: Units/Reference Range ChangeNew: 0.5-2.2 mmol/L Previous: 5- 20 mg/dLOXYGEN SATURATION, [id number] 03:47:00 Test Item Value Reference Range Interpretation Comments O2 SATURATION (MEASURED) (BEAKER) 59.5 % (test code = 1455) Mixed venous from central line.POCT-GLUCOSE [id number] 03:16:00 Test Item Value Reference Range Interpretation Comments POC-GLUCOSE METER 112 mg/dL 70-110 H TESTED AT [facility] 6720 ([facility]) (test code = NURIS Anton[place] 1538) [address] POCT-GLUCOSE [id number] 02:12:00 Test Item Value Reference Range Interpretation Comments POC-GLUCOSE METER 121 mg/dL 70-110 H TESTED AT [facility] 6720 (BEAKER) (test code = NURIS Antony [place] 1538) [address] POCT-GLUCOSE [id number] 01:16:00 Test Item Value Reference Range Interpretation Comments POC-GLUCOSE METER 141 mg/dL 70-110 H TESTED AT [place] [address] (BEAKER) (test code = NURIS Antony [place] 1538) [address] POCT-GLUCOSE [id number] 00:01:00 Test Item Value Reference Range Interpretation Comments POC-GLUCOSE METER 198 mg/dL 70-110 H TESTED AT [place] [address] (BEAKER) (test code = NURIS Antony [place] 1538) [address] BASIC METABOLIC [id number] 23:14:00 Test Item Value Reference Range Interpretation [...] PATIEN TS. 8 hours after PO replacement [id number] 23:13:00 Test Item Value Reference Range Interpretation Comments POTASSIUM (BEAKER) (test code = 3.7 meq/L 3.5-5.1 379) 8 hours after PO replacement completedOXYGEN SATURATION, [id number] 22:50:00 Test Item Value Reference Range Interpretation Comments O2 SATURATION (MEASURED) (BEAKER) 51.9 % (test code = 1455) POCT-GLUCOSE [id number] 22:20:00 Test Item Value Reference Range Interpretation Comments POC-GLUCOSE METER 220 mg/dL 70-110 H TESTED AT [place] [address] (BEAKER) (test code = NURIS Antony [place] 1538) [address] [id number] 21:20:00 Test Item Value Reference Range Interpretation Comments PARTIAL THROMBOPLASTIN TIME 62.2 seconds 22.5-36.0 H ([facility]) (test code = 760) POCT-GLUCOSE [id number] 20:47:00 Test Item Value Reference Range Interpretation Comments POC-GLUCOSE METER 209 mg/dL 70-110 H TESTED AT [place] [address] ([facility]) (test code = GILBRIANNA Antony [place] 1538) [address] POCT-GLUCOSE [id number] 19:51:00 Test Item Value Reference Range Interpretation Comments POC-GLUCOSE METER 176 mg/dL 70-110 H TESTED AT [place] [address] ([facility]) (test code = NURIS Antony [facility] 1538) [address] [id number] 18:54:00 Test Item Value Reference Range Interpretation Comments POTASSIUM ([facility]) (test code = 3.4 meq/L 3.5-5.1 L 379) 8 hours after PO replacement completedPOCT-GLUCOSE [id number] 18:50:00 Test Item Value Reference Range Interpretation Comments POC-GLUCOSE METER 112 mg/dL 70-110 H TESTED AT [place] [address] ([facility]) (test code = NURIS Antony [facility] 1538) [address] [id number] 18:34:00 Test Item Value Reference Range Interpretation Comments PARTIAL THROMBOPLASTIN TIME 48.2 seconds 22.5-36.0 H ([facility]) (test code = 760) POCT-GLUCOSE [id number] 18:20:00 Test Item Value Reference Range Interpretation Comments POC-GLUCOSE METER 48 mg/dL 70-110 L Notified R Kathrine GATES/TESTED AT ([facility]) (test code = [place] [address] CHRISTOPH 1538) [facility] 7703 0 POCT-GLUCOSE [id number] 12:35:00 Test Item Value Reference Range Interpretation Comments POC-GLUCOSE METER 117 mg/dL 70-110 H TESTED AT [place] [address] ([facility]) (test code = NURIS Antony [facility] 1538) [address] POCT-GLUCOSE [id number] 11:58:00 Test Item Value Reference Range Interpretation Comments POC-GLUCOSE METER 166 mg/dL 70-110 H TESTED AT [place] [address] ([facility]) (test code = NURIS Antony [facility] 1538) [address] POCT-GLUCOSE [id number] 11:58:00 Test Item Value Reference Range Interpretation Comments POC-GLUCOSE METER 197 mg/dL 70-110 H TESTED AT [place] [address] ([facility]) (test code = NURIS Antony [facility] 1538) [address] BASIC METABOLIC [id number] 10:33:00 Test Item Value Reference Range Interpretation [...] 358) GLUCOSE RANDOM 168 mg/dL 70-105 H (AKER) (test code = 652) CALCIUM (BEAKER) 7.5 mg/dL 8.4-10.2 L (test code = 697) EGFR ([facility]) (test 44 mL/min/1.73 ESTIMA FINA GFR IS code = 1092) sq m NOT ACCURATE CREATININE CLEARANCE IN PREDICTING GLOMERULAR FILTRATION RATE . ESTIMATED GFR I S NOT APPLICABLE FOR DIALYSIS PATIEN TS. POCT-GLUCOSE [id number] 09:38:00 Test Item Value Reference Range Interpretation Comments POC-GLUCOSE METER 198 mg/dL 70-110 H TESTED AT [place] [address] ([facility]) (test code = NURIS Antony [facility] 1538) [address] POCT-GLUCOSE [id number] 08:49:00 Test Item Value Reference Range Interpretation Comments POC-GLUCOSE METER 230 mg/dL 70-110 H TESTED AT [place] [address] ([facility]) (test code = [facility] Cassia [facility] 1538) [address] RAD, CHEST, 1 VIEW, NON [id number] 07:44:00Reason for exam:- >hypoxemiaShould this be performed at the bedside?->YesFINAL REPORT Chest one view compared to August 04 Discussion: There is bilateral pulmonary congestion with probable bilateral atelectasis. No gross effusion or pneumothorax. IMPRESSIONS: No change Signed: Jaida Terrazas MDReport Verified Date/Time: 08/05/2017 07:44:47 Reading Location: [facility] Radiology Reading Room CBC W/PLT COUNT & AUTO [id number] 07:22:00 Test Item Value Reference Range Interpretation [...] 1+ few (test code = 478) POCT-GLUCOSE [id number] 06:05:00 Test Item Value Reference Range Interpretation Comments POC-GLUCOSE METER 256 mg/dL 70-110 H TESTED AT [facility] 6720 (BEAKER) (test code = NURIS [place] 1538) [address] BASIC METABOLIC [id number] 04:34:00 Test Item Value Reference Range Interpretation [...] S NOT APPLICABLE FOR DIALYSIS PATIEN TS. [id number] 04:33:00 Test Item Value Reference Range Interpretation Comments PHOSPHORUS (BEAKER) (test code = 3.3 mg/dL 2.3-4.7 604) [id number] 04:33:00 Test Item Value Reference Range Interpretation Comments MAGNESIUM (BEAKER) (test code = 2.1 mg/dL 1.6-2.6 627) HEPATIC FUNCTION [id number] 04:33:00 Test Item Value Reference Range Interpretation [...] 6-55 H 347) LACTIC ACID, ARTERIAL, WHOLE [id number] 04:24:00 Test Item Value Reference Range Interpretation Comments LACTATE BLOOD ARTERIAL (2) 1.6 mmol/L 0.5-2.2 (BEAKER) (test code = 2874) Effective 03/21/2016: Units/Reference Range ChangeNew: 0.5-2.2 mmol/L Previous: 5- 20 mg/[id number] 04:23:00 Test Item Value Reference Range Interpretation Comments PARTIAL THROMBOPLASTIN TIME 79.3 seconds 22.5-36.0 H ([facility]) (test code = 760) OXYGEN SATURATION, [id number] 04:16:00 Test Item Value Reference Range Interpretation Comments O2 SATURATION (MEASURED) ([facility]) 58.7 % (test code = 1455) Mixed venous from central line.POCT-GLUCOSE [id number] 03:03:00 Test Item Value Reference Range Interpretation Comments POC-GLUCOSE METER 260 mg/dL 70-110 H TESTED AT [place] [address] ([facility]) (test code = NURIS Antony [facility] 1538) [address] POCT-GLUCOSE [id number] 00:11:00 Test Item Value Reference Range Interpretation Comments POC-GLUCOSE METER 92 mg/dL 70-110 TESTED AT [place] [address] ([facility]) (test [facility] = [facility] [address] 1538) POCT-GLUCOSE [id number] 23:46:00 Test Item Value Reference Range Interpretation Comments POC-GLUCOSE METER 91 mg/dL 70-110 TESTED AT [place] [address] ([facility]) (test code = [facility] [address] 1538) POCT-GLUCOSE [id number] 22:52:00 Test Item Value Reference Range Interpretation Comments POC-GLUCOSE METER 124 mg/dL 70-110 H TESTED AT [place] [address] ([facility]) (test code = [facility] 1538) [address] [id number] 21:57:00 Test Item Value Reference Range Interpretation Comments POTASSIUM ([facility]) (test code = 3.5 meq/L 3.5-5.1 379) 8 hours after PO replacement [id number] 21:57:00 Test Item Value Reference Range Interpretation Comments MAGNESIUM ([facility]) (test code = 2.4 mg/dL 1.6-2.6 627) 8 hours after PO replacement completedPOCT-GLUCOSE [id number] 21:18:00 Test Item Value Reference Range Interpretation Comments POC-GLUCOSE METER 194 mg/dL 70-110 H TESTED AT [facility] 6720 ([facility]) (test code = NURIS Antony [place] 1538) [address] BASIC METABOLIC [id number] 17:29:00 Test Item Value Reference Range Interpretation [...] 358) GLUCOSE RANDOM 181 mg/dL 70-105 H (AKER) (test code = 652) CALCIUM (BEAKER) 7.5 mg/dL 8.4-10.2 L (test code = 697) EGFR ([facility]) (test 42 mL/min/1.73 ESTIMA FINA GFR IS code = 1092) sq m NOT ACCURATE CREATININE CLEARANCE IN PREDICTING GLOMERULAR FILTRATION RATE . ESTIMATED GFR I S NOT APPLICABLE FOR DIALYSIS PATIEN TS. [id number] 17:18:00 Test Item Value Reference Range Interpretation Comments PARTIAL THROMBOPLASTIN TIME 73.0 seconds 22.5-36.0 H ([facility]) (test code = 760) POCT-GLUCOSE [id number] 15:11:00 Test Item Value Reference Range Interpretation Comments POC-GLUCOSE METER 194 mg/dL 70-110 H TESTED AT [facility] 6720 ([facility]) (test code = NURIS Antony [facility] 1538) [address] LACTIC ACID, ARTERIAL, WHOLE [id number] 13:23:00 Test Item Value Reference Range Interpretation Comments LACTATE BLOOD ARTERIAL (2) 1.0 mmol/L 0.5-2.2 ([facility]) (test code = 2874) Effective 03/21/2016: Units/Reference Range ChangeNew: 0.5-2.2 mmol/L Previous: 5- 20 mg/dLPOCT-GLUCOSE [id number] 12:41:00 Test Item Value Reference Range Interpretation Comments POC-GLUCOSE METER 236 mg/dL 70-110 H TESTED AT [facility] 67 ([facility]) (test code = NURIS Antony [place] 1538) [address] OXYGEN SATURATION, [id number] 12:31:00 Test Item Value Reference Range Interpretation Comments O2 SATURATION (MEASURED) ([facility]) 55.9 % (test code = 1455) Mixed venous from central line.[id number] 10:03:00 Test Item Value Reference Range Interpretation Comments POTASSIUM ([facility]) (test code = 3.2 meq/L 3.5-5.1 L 379) Check Serum Potassium level 2 hours after oral potassium replacement completed or 30 min after intravenous potassium replacement.POCT-GLUCOSE [id number] 09:23:00 Test Item Value Reference Range Interpretation Comments POC-GLUCOSE METER 150 mg/dL 70-110 H TESTED AT [facility] 67 ([facility]) (test code = NURIS Anton[place] 1538) [address] RAD, CHEST, 1 VIEW, NON [id number] 09:18:00Reason for exam:- >hypoxemiaShould this be performed at the bedside?->YesFINAL REPORT AP view of the chest dated 08/04/2017 COMPARISON: 08/03/2017 CLINICAL INFORMATION: hypoxemia Comment: Heart is in upper limits of normal in size. There is prior sternotomy. Pulmonary vasculature is unremarkable. Pulmonary parenchyma disease is seen in the left lower lobe suggestive of subsegmental atelectasis versus pneumonia. The rest of lungs are clear. No pleural effusion is present. Right IJ central venous catheter remains in place. No pneumothorax is seen. IMPRESSION: Left lower lobe subsegmental atelectasis versus pneumonia. Signed: Cherelle James Verified Date/Time: 08/04/2017 09:18:42 Reading Location: [place] [id number] Ortho Consult Reading Room Electronic ally signed by: CHERELLE JAMES M.D. on 08/04/2017 09:18 [id number] 06:56:00 Test Item Value Reference Range Interpretation Comments PARTIAL THROMBOPLASTIN TIME 76.8 seconds 22.5-36.0 H ([facility]) (test code = 760) POCT-GLUCOSE [id number] 06:18:00 Test Item Value Reference Range Interpretation Comments POC-GLUCOSE METER 118 mg/dL 70-110 H TESTED AT [facility] 6720 (BEAKER) (test code = NURIS [place]RNES 1538) [address] (MANUAL DIFFERENTIAL)2017-08-04 05:23:00 Test Item Value Reference [...] few 966) CBC W/PLT COUNT & AUTO [id number] 05:22:00 Test Item Value Reference Range Interpretation [...] (BEAKER) (test code = 2801) BASIC METABOLIC [id number] 05:19:00 Test Item Value Reference Range Interpretation [...] NOT APPLICABLE FOR DIALYSIS PATIEN TS. POCT-GLUCOSE [id number] 05:17:00 Test Item Value Reference Range Interpretation Comments POC-GLUCOSE METER 149 mg/dL 70-110 H TESTED AT [facility] 6720 (BEAKER) (test code = [facility] 1538) [address] [id number] 05:11:00 Test Item Value Reference Range Interpretation Comments PHOSPHORUS (BEAKER) (test code = 2.7 mg/dL 2.3-4.7 604) [id number] 05:11:00 Test Item Value Reference Range Interpretation Comments MAGNESIUM (BEAKER) (test code = 1.8 mg/dL 1.6-2.6 627) HEPATIC FUNCTION [id number] 05:11:00 Test Item Value Reference Range Interpretation [...] = 1371 U/L 6-55 H 347) POCT-GLUCOSE [id number] 04:16:00 Test Item Value Reference Range Interpretation Comments POC-GLUCOSE METER 131 mg/dL 70-110 H TESTED AT [facility] 6720 (BEAKER) (test code = [facility] 1538) [address] POCT-GLUCOSE [id number] 04:16:00 Test Item Value Reference Range Interpretation Comments POC-GLUCOSE METER 105 mg/dL 70-110 TESTED AT [place] [address] ([facility]) (test code = NURIS Antony [place] 1538) [address] POCT-GLUCOSE [id number] 02:38:00 Test Item Value Reference Range Interpretation Comments POC-GLUCOSE METER 90 mg/dL 70-110 TESTED AT [place] [address] ([facility]) (test code = [place] [address] 1538) POCT-GLUCOSE [id number] 00:35:00 Test Item Value Reference Range Interpretation Comments POC-GLUCOSE METER 104 mg/dL 70-110 TESTED AT [place] [address] ([facility]) (test code = NURIS Antony [place] 1538) [address] POCT-GLUCOSE [id number] 23:46:00 Test Item Value Reference Range Interpretation Comments POC-GLUCOSE METER 126 mg/dL 70-110 H TESTED AT [place] [address] ([facility]) (test code = NURIS Antony [place] 1538) [address] POCT-GLUCOSE [id number] 21:13:00 Test Item Value Reference Range Interpretation Comments POC-GLUCOSE METER 160 mg/dL 70-110 H TESTED AT [place] [address] ([facility]) (test code = NURIS Antony [place] 1538) [address] [id number] 20:24:00 Test Item Value Reference Range Interpretation Comments PARTIAL THROMBOPLASTIN TIME 54.0 seconds 22.5-36.0 H ([facility]) (test code = 760) POCT-GLUCOSE [id number] 20:12:00 Test Item Value Reference Range Interpretation Comments POC-GLUCOSE METER 172 mg/dL 70-110 H TESTED AT [place] [address] ([facility]) (test code = NURIS Anton[place] 1538) [address] POCT-GLUCOSE [id number] 15:16:00 Test Item Value Reference Range Interpretation Comments POC-GLUCOSE METER 102 mg/dL 70-110 TESTED AT [place] [address] ([facility]) (test code = NURIS Anton[place] 1538) [address] [id number] 12:48:00 Test Item Value Reference Range Interpretation Comments PARTIAL THROMBOPLASTIN TIME 46.2 seconds 22.5-36.0 H ([facility]) (test code = 760) POCT-GLUCOSE [id number] 11:37:00 Test Item Value Reference Range Interpretation Comments POC-GLUCOSE METER 109 mg/dL 70-110 TESTED AT [facility] 6720 (KIRA) (test code = NURIS [place] 1538) [address] U/S, ABDOMINAL, [id number] 09:59:00Abdomen limited area? Add comment if clarification [...] tree: Common duct measures 6 mm. No intrahepaticbiliary dilatation. Gallbladder: Sludge in the gallbladder lumen. [...] MDReport Verified Date/Time: 08/03/2017 09:59:59 Reading Location: [address] Body Reading Room RAD, CHEST, 1 VIEW, NON [id number] 08:05:00Reason for exam:- >hypoxemiaShould this be performed at the bedside?->YesFINAL REPORT Chest one view INDICATION: Hypoxemia COMPARISON: 08/02/2017 IMPRESSION: A right jugular line and median sternotomy changes are again noted. The cardiac silhouette is enlarged. Mediastinal prominence is stable. There are low lung volumes with stable mixed interstitial and airspace opacities, in part due to edema and atelectasis. Superimposed pneumonitis cannot be excluded. Small right and possible trace left pleural effusions are present. No pneumothorax is seen. There is stable gaseous bowel loop prominence in the imaged abdomen. Signed: Lewis Dickerson MDReport Verified Date/Time: 08/03/2017 08:05:10 Reading Location: [facility] C013V Neuro Reading Room CBC W/PLT COUNT & AUTO [id number] 06:41:00 Test Item Value Reference Range Interpretation [...] (BEAKER) (test code Normal = 762) POCT-GLUCOSE [id number] 06:13:00 Test Item Value Reference Range Interpretation Comments POC-GLUCOSE METER 133 mg/dL 70-110 H TESTED AT [facility] 6720 (BEAKER) (test code = NURIS [place] 1538) [address] POCT-GLUCOSE [id number] 06:13:00 Test Item Value Reference Range Interpretation Comments POC-GLUCOSE METER 143 mg/dL 70-110 H TESTED AT [facility] 6720 (BEAKER) (test code = NUR[place] 1538) [address] POCT-GLUCOSE [id number] 06:13:00 Test Item Value Reference Range Interpretation Comments POC-GLUCOSE METER 136 mg/dL 70-110 H TESTED AT [facility] 6720 (BEAKER) (test code = [place] 1538) [address] [id number] 05:47:00 Test Item Value Reference Range Interpretation Comments PARTIAL THROMBOPLASTIN TIME 37.5 seconds 22.5-36.0 H (BEAKER) (test code = 760) [id number] 05:37:00 Test Item Value Reference Range Interpretation Comments PHOSPHORUS (BEAKER) (test code = 1.8 mg/dL 2.3-4.7 L 604) [id number] 05:37:00 Test Item Value Reference Range Interpretation Comments MAGNESIUM (BEAKER) (test code = 2.1 mg/dL 1.6-2.6 627) BASIC METABOLIC [id number] 05:37:00 Test Item Value Reference Range Interpretation [...] APPLICABLE FOR DIALYSIS PATIEN TS. HEPATIC FUNCTION [id number] 05:37:00 Test Item Value Reference Range Interpretation Comments TOTAL PROTEIN (BEAKER) (test code = 5.6 gm/dL 6.0-8.3 L 770) ALBUMIN (BEAKER) (test code = 1145) 2.8 g/dL 3.5-5.0 L BILIRUBIN TOTAL (BEAKER) (test code 1.1 mg/dL 0.2-1.2 = 377) BILIRUBIN DIRECT (BEAKER) (test 0.6 mg/dL 0.1-0.5 H code = 706) ALKALINE PHOSPHATASE (BEAKER) (test 86 U/L 40-150 code = 346) AST (SGOT) (BEAKER) (test code = 795 U/L 5-34 H 353) ALT (SGPT) (BEAKER) (test code = 1649 U/L 6-55 H 347) CREATINE KINASE (CK)2017-08-03 05:37:00 Test Item Value Reference Range Interpretation Comments CREATINE KINASE TOTAL (BEAKER) (test 1216 U/L 29-200 H code = 380) OXYGEN SATURATION, [id number] 05:34:00 Test Item Value Reference Range Interpretation Comments O2 SATURATION (MEASURED) (AKER) 51.5 % (test code = 1455) POCT-GLUCOSE [id number] 01:44:00 Test Item Value Reference Range Interpretation Comments POC-GLUCOSE METER 101 mg/dL 70-110 TESTED AT [place] [address] ([facility]) (test code = [facility] 1538) [address] POCT-GLUCOSE [id number] 01:44:00 Test Item Value Reference Range Interpretation Comments POC-GLUCOSE METER 82 mg/dL 70-110 TESTED AT [place] [address] ([facility]) (test code = [facility] [address] 1538) POCT-GLUCOSE [id number] 01:44:00 Test Item Value Reference Range Interpretation Comments POC-GLUCOSE METER 111 mg/dL 70-110 H TESTED AT [place] [address] ([facility]) (test code = [facility] 1538) [address] POCT-GLUCOSE [id number] 01:44:00 Test Item Value Reference Range Interpretation Comments POC-GLUCOSE METER 129 mg/dL 70-110 H TESTED AT [place] [address] ([facility]) (test code = [facility] 1538) [address] [id number] 23:10:00 Test Item Value Reference Range Interpretation Comments PARTIAL THROMBOPLASTIN TIME 32.3 seconds 22.5-36.0 (BEAKER) (test code = 760) POCT-GLUCOSE [id number] 22:53:00 Test Item Value Reference Range Interpretation Comments POC-GLUCOSE METER 152 mg/dL 70-110 H TESTED AT [facility] 6720 (BEAKER) (test code = [facility] Cassia [place] 1538) [address] OXYGEN SATURATION, [id number] 22:00:00 Test Item Value Reference Range Interpretation Comments O2 SATURATION (MEASURED) (BEAKER) 48.0 % (test code = 1455) BASIC METABOLIC [id number] 20:43:00 Test Item Value Reference Range Interpretation [...] S NOT APPLICABLE FOR DIALYSIS PATIEN TS. [id number] 20:38:00 Test Item Value Reference Range Interpretation Comments MAGNESIUM (BEAKER) (test code = 2.0 mg/dL 1.6-2.6 627) POCT-GLUCOSE [id number] 20:10:00 Test Item Value Reference Range Interpretation Comments POC-GLUCOSE METER 159 mg/dL 70-110 H TESTED AT [facility] 6720 (BEAKER) (test code = [facility] [place] 1538) [address] POCT-GLUCOSE [id number] 18:58:00 Test Item Value Reference Range Interpretation Comments POC-GLUCOSE METER 173 mg/dL 70-110 H TESTED AT [place] [address] ([facility]) (test code = NURIS Antony [place] 1538) [address] [id number] 17:45:00 Test Item Value Reference Range Interpretation Comments PARTIAL THROMBOPLASTIN TIME 30.1 seconds 22.5-36.0 (AKER) (test code = 760) POCT-GLUCOSE [id number] 17:24:00 Test Item Value Reference Range Interpretation Comments POC-GLUCOSE METER 174 mg/dL 70-110 H TESTED AT [place] [address] ([facility]) (test code = NURIS Antony [place] 1538) [address] CREATINE KINASE (CK)2017-08-02 16:08:00 Test Item Value Reference Range Interpretation Comments CREATINE KINASE TOTAL (AKER) (test 1799 U/L 29-200 H code = 380) POCT-GLUCOSE [id number] 15:44:00 Test Item Value Reference Range Interpretation Comments POC-GLUCOSE METER 174 mg/dL 70-110 H TESTED AT [place] [address] ([facility]) (test code = NURIS Antony [place] 1538) [address] OXYGEN SATURATION, [id number] 15:44:00 Test Item Value Reference Range Interpretation Comments O2 SATURATION (MEASURED) (BEAKER) 50.2 % (test code = 1455) BLOOD GAS, [id number] 15:40:00 Test Item Value Reference Range Interpretation [...] (test code = 1819) 100.0 % POCT-GLUCOSE [id number] 14:08:00 Test Item Value Reference Range Interpretation Comments POC-GLUCOSE METER 141 mg/dL 70-110 H TESTED AT [facility] 67 ([facility]) (test code = [facility] [place] 1538) [address] POCT-GLUCOSE [id number] 13:22:00 Test Item Value Reference Range Interpretation Comments POC-GLUCOSE METER 97 mg/dL 70-110 TESTED AT [place] [address] ([facility]) (test code = [facility] [address] 1538) HEPATIC FUNCTION [id number] 12:02:00 Test Item Value Reference Range Interpretation Comments TOTAL PROTEIN (BEAKER) (test code = 5.7 gm/dL 6.0-8.3 L 770) ALBUMIN (BEAKER) (test [...] code = 1604 U/L 6-55 H 347) [id number] 11:11:00 Test Item Value Reference Range Interpretation Comments PARTIAL THROMBOPLASTIN TIME 28.6 seconds 22.5-36.0 (BEAKER) (test code = 760) 6 hours after starting heparin infusion and as indicated per sliding scalePOCT- GLUCOSE [id number] 10:59:00 Test Item Value Reference Range Interpretation Comments POC-GLUCOSE METER 105 mg/dL 70-110 TESTED AT [facility] 6720 ([facility]) (test code = [facility] 1538) [address] BLOOD GAS, [id number] 10:58:00 Test Item Value Reference Range Interpretation [...] -2.0-3.0 (test code = 387) PATIENT TEMPERATURE (AKER) (test 37.0 C code = 1818) FIO2 (BEAKER) (test code = 1819) 100.0 % LACTIC ACID, ARTERIAL, WHOLE [id number] 10:28:00 Test Item Value Reference Range Interpretation Comments LACTATE BLOOD ARTERIAL (2) 1.1 mmol/L 0.5-2.2 (BEAKER) (test code = 2874) Effective 03/21/2016: Units/Reference Range ChangeNew: 0.5-2.2 mmol/L Previous: 5- 20 mg/dLPOCT-GLUCOSE [id number] 08:55:00 Test Item Value Reference Range Interpretation Comments POC-GLUCOSE METER 111 mg/dL 70-110 H TESTED AT [place] [address] ([facility]) (test code = [facility] 1538) [address] HEMOGLOBIN AND [id number] 08:53:00 Test Item Value Reference Range Interpretation Comments HEMOGLOBIN ([facility]) (test code = 9.1 GM/DL 13.7-17.5 L 410) HEMATOCRIT ([facility]) (test code = 26.7 % 40.1-51.0 L 411) POCT-GLUCOSE [id number] 06:28:00 Test Item Value Reference Range Interpretation Comments POC-GLUCOSE METER 122 mg/dL 70-110 H TESTED AT [place] [address] ([facility]) (test code = [facility] 1538) [address] OXYGEN SATURATION, [id number] 06:07:00 Test Item Value Reference Range Interpretation Comments O2 SATURATION (MEASURED) ([facility]) 61.5 % (test code = 1455) CBC W/PLT COUNT & AUTO [id number] 06:04:00 Test Item Value Reference Range Interpretation Comments WHITE BLOOD CELL COUNT ([facility]) 11.1 K/ L 3.5-10.5 H (test code = 775) RED BLOOD CELL COUNT (AKER) 2.98 M/ L 4.63-6.08 L (test code [...] PERCENT (BEAKER) (test code = 2801) POCT-GLUCOSE [id number] 05:47:00 Test Item Value Reference Range Interpretation Comments POC-GLUCOSE METER 121 mg/dL 70-110 H TESTED AT [facility] 6720 (BEAKER) (test code = NUR[place] 1538) [address] RAD, CHEST, 1 VIEW, NON [id number] 05:45:00Reason for exam:->s/p ACBShould this be performed at the bedside?->YesFINAL REPORT RAD, CHEST, 1 VIEW, NON DEPT INDICATION: s/p ACB COMPARISON: Priorday's exam TECHNIQUE: Portable frontal view of the chest. IMPRESSION: Interval removal of all chest tubes. Stable right IJ line. Worsening interstitial edema.Cardiomediastinal silhouette stable.Streakyopacities in the mid right lung and left lung base likely reflecting atelectasis.No acute osseous abnormality. Signed: May Mooreort Verified Date/Time: 08/02/2017 05:45:27 Reading Location:[address] Ortho Consult Reading Room RAD, ABDOMEN/KUB, 1 VIEW [id number] 05:44:00Reason for exam:->DistentionFINAL REPORT RAD, ABDOMEN/KUB, 1 VIEW AP CLINICAL INDICATION: "Distention" COMPARISON: None TECHNIQUE: Single, frontal radiograph of the abdomen. IMPRESSION: Prominent but not dilated, air-filled loops of small bowel in the left hemiabdomen.Nondistended, air-filled loops of colon.Overall pattern is nonspecific. There is no high-grade obstruction at this time.No pneumatosis or obvious pneumoperitoneum.No acute osseous abnormality. Signed: May Moore MDReport Verified Date/Time: 08/02/2017 05:44:54 Reading Location: [facility] C0[facility] Ortho Consult Reading Room [id number] 05:31:00 Test Item Value Reference Range Interpretation Comments POTASSIUM (BEAKER) (test code = 4.5 meq/L 3.5-5.1 379) [id number] 05:31:00 Test Item Value Reference Range Interpretation Comments PHOSPHORUS (BEAKER) (test code = 2.4 mg/dL 2.3-4.7 604) BASIC METABOLIC [id number] 05:31:00 Test Item Value Reference Range Interpretation [...] 358) GLUCOSE RANDOM 116 mg/dL 70-105 H (BEAKER) (test code = 652) CALCIUM (BEAKER) 8.1 mg/dL 8.4-10.2 L (test code = 697) EGFR (BEAKER) (test 65 mL/min/1.73 ESTIMA FINA GFR IS code = 1092) sq m NOT ACCURATE CREATININE CLEARANCE IN PREDICTING GLOMERULAR FILTRATION RATE . ESTIMATED GFR I S NOT APPLICABLE FOR DIALYSIS PATIEN TS. POCT-GLUCOSE [id number] 04:47:00 Test Item Value Reference Range Interpretation Comments POC-GLUCOSE METER 124 mg/dL 70-110 H TESTED AT [place] [address] ([facility]) (test code = [facility] 1538) [address] POCT-GLUCOSE [id number] 03:44:00 Test Item Value Reference Range Interpretation Comments POC-GLUCOSE METER 123 mg/dL 70-110 H TESTED AT [place] [address] ([facility]) (test code = [facility] 1538) [address] POCT-GLUCOSE [id number] 03:06:00 Test Item Value Reference Range Interpretation Comments POC-GLUCOSE METER 91 mg/dL 70-110 TESTED AT [place] [id number] ([facility]) (test code = [facility] [address] 1538) [id number] 02:16:00 Test Item Value Reference Range Interpretation Comments MAGNESIUM (BEAKER) (test code = 2.0 mg/dL 1.6-2.6 627) POCT-GLUCOSE [id number] 02:07:00 Test Item Value Reference Range Interpretation Comments POC-GLUCOSE METER 111 mg/dL 70-110 H TESTED AT [place] [address] (BEAKER) (test code = NURIS Anton[place] 1538) [address] POCT-GLUCOSE [id number] 01:16:00 Test Item Value Reference Range Interpretation Comments POC-GLUCOSE METER 123 mg/dL 70-110 H TESTED AT [place] [address] (BEAKER) (test code = NURIS [place] 1538) [address] [id number] 01:03:00 Test Item Value Reference Range Interpretation Comments POTASSIUM (BEAKER) (test code = 4.4 meq/L 3.5-5.1 379) HEMOGLOBIN AND [id number] 00:57:00 Test Item Value Reference Range Interpretation Comments HEMOGLOBIN (BEAKER) (test code = 8.8 GM/DL 13.7-17.5 L 410) HEMATOCRIT (BEAKER) (test code = 25.9 % 40.1-51.0 L 411) POCT-GLUCOSE [id number] 00:31:00 Test Item Value Reference Range Interpretation Comments POC-GLUCOSE METER 141 mg/dL 70-110 H TESTED AT [place] [address] (BEAKER) (test code = NURIS Antony [place] 15[address]) [id number] POCT-GLUCOSE [id number] 23:05:00 Test Item Value Reference Range Interpretation Comments POC-GLUCOSE METER 149 mg/dL 70-110 H TESTED AT [place] [address] (BEAKER) (test code = NURIS [place] 1538) [id number] POCT-GLUCOSE [id number] 22:04:00 Test Item Value Reference Range Interpretation Comments POC-GLUCOSE METER 161 mg/dL 70-110 H TESTED AT [place] [address] (BEAKER) (test code = NURIS [place] 1538) [id number] 21:39:00 Test Item Value Reference Range Interpretation Comments POTASSIUM (BEAKER) (test code = 4.7 meq/L 3.5-5.1 379) HEMOGLOBIN AND [id number] 21:16:00 Test Item Value Reference Range Interpretation Comments HEMOGLOBIN (BEAKER) (test code = 8.4 GM/DL 13.7-17.5 L 410) HEMATOCRIT (BEAKER) (test code = 25.2 % 40.1-51.0 L 411) POCT-GLUCOSE [id number] 20:46:00 Test Item Value Reference Range Interpretation Comments POC-GLUCOSE METER 169 mg/dL 70-110 H TESTED [place] [address] ([facility] (test code = NURIS Antony [place] 1538) [address] POCT-GLUCOSE [id number] 19:40:00 Test Item Value Reference Range Interpretation Comments POC-GLUCOSE METER 201 mg/dL 70-110 H TESTED AT [place] [address] ([facility]) (test code = NURIS Anton[place] 1538) [address] POCT-GLUCOSE [id number] 18:51:00 Test Item Value Reference Range Interpretation Comments POC-GLUCOSE METER 228 mg/dL 70-110 H TESTED AT [place] [address] ([facility]) (test code = [facility] Cassia [facility] 1538) [address] BASIC METABOLIC [id number] 18:02:00 Test Item Value Reference Range Interpretation [...] APPLICABLE FOR DIALYSIS PATIEN TS. OXYGEN SATURATION, [id number] 17:07:00 Test Item Value Reference Range Interpretation Comments O2 SATURATION (MEASURED) (BEAKER) 60.3 % (test code = 1455) U/S, RENAL WITH [id number] 16:36:00Reason for exam:->akiFINAL REPORT TECHNIQUE: Grayscale, color Doppler, and spectral Doppler ultrasound of the kidneys and bladder. INDICATION: 56-year-old man with acute kidney injury. COMPARISON: None. FINDINGS:Markedly limited evaluation of the renal vasculature secondary to patient body habitus andinability to be repositioned. RIGHT KIDNEY: The right kidney measures 9.7 cm. Cortical thickness measures 1.3 cm. No solid mass lesions. No hydronephrosis. Renal artery and vein are not clearly visualized. LEFT KIDNEY: The left kidney measures 10 cm. Cortical thickness measures 0.8 cm. No solid mass lesions. No hydronephrosis. Renal artery and vein are patent. Resistive index in the interpolar regionis within normal limits, measuring 0.6. Resistive indices in the upper and lower poles cannot be accurately assessed. BLADDER: Decompressed by Caballero catheter. OTHER FINDINGS: Trace ascites in the pelvis. IMPRESSION:Unremarkable appearance of both kidneys. Markedly limited Doppler evaluation of the renal vasculature, as detailed above. Trace ascites in the pelvis. Signed: Evan Artis MDReport Verified Date/Time: 08/01/2017 16:36:54 Reading Location: [address] Ultrasound Reading Room POCT-GLUCOSE [id number] 15:22:00 Test Item Value Reference Range Interpretation Comments POC-GLUCOSE METER 325 mg/dL 70-110 H TESTED AT [place] [address] ([facility]) (test code = NURIS Antony [place] [id number]) [address] RAD, CHEST, 1 VIEW, NON [id number] 13:30:00Reason for exam:->chest tubes FINAL REPORT TECHNIQUE: [...] MDReport Verified Date/Time: 08/01/2017 13:30:25 Reading Location: [facility] Radiology ReadingRoom POCT-GLUCOSE METER 2017-08-01 13:21:00 Test Item Value Reference Range Interpretation Comments POC-GLUCOSE METER 295 mg/dL 70-110 H TESTED AT [facility] 6720 ([facility]) (test code = NURIS Antony [facility] 1538) [address] [id number] 13:15:00 Test Item Value Reference Range Interpretation Comments POTASSIUM (BEAKER) (test code = 5.2 meq/L 3.5-5.1 H 379) POCT-GLUCOSE [id number] 11:05:00 Test Item Value Reference Range Interpretation Comments POC-GLUCOSE METER 311 mg/dL 70-110 H TESTED AT [place] [id number] ([facility]) (test code = NURIS Antony [facility] 1538) [address] [id number] 10:54:00 Test Item Value Reference Range Interpretation Comments POTASSIUM (BEAKER) (test code = 5.7 meq/L 3.5-5.1 H 379) LACTIC ACID, ARTERIAL, WHOLE [id number] 10:49:00 Test Item Value Reference Range Interpretation Comments LACTATE BLOOD ARTERIAL (2) 2.6 mmol/L 0.5-2.2 H ([facility]) (test code = 2874) Effective 03/21/2016: Units/Reference Range ChangeNew: 0.5-2.2 mmol/L Previous: 5- 20 mg/dLOXYGEN SATURATION, [id number] 10:39:00 Test Item Value Reference Range Interpretation Comments O2 SATURATION (MEASURED) ([facility]) 30.8 % (test code = 1455) POCT-GLUCOSE [id number] 10:16:00 Test Item Value Reference Range Interpretation Comments POC-GLUCOSE METER 364 mg/dL 70-110 H Notified Cassia Chisholm MD/TESTED ([facility]) (test code = AT [place] [address] CHRISTOPH [facility]8) [facility] [address] POCT-GLUCOSE [id number] 09:02:00 Test Item Value Reference Range Interpretation Comments POC-GLUCOSE METER 321 mg/dL 70-110 H Notified Cassia Chisholm MD/TESTED ([facility]) (test code = AT [place] [address] [facility] 1538) [facility] 7[address] 0 HEMOGLOBIN AND [id number] 08:23:00 Test Item Value Reference Range Interpretation Comments HEMOGLOBIN (BEAKER) (test code = 8.0 GM/DL 13.7-17.5 L 410) HEMATOCRIT (BEAKER) (test code = 23.5 % 40.1-51.0 L 411) [id number] 08:20:00 Test Item Value Reference Range Interpretation Comments POTASSIUM (BEAKER) (test code = 6.0 meq/L 3.5-5.1 HH 379) [id number] 07:31:00 Test Item Value Reference Range Interpretation Comments GLUCOSE RANDOM (BEAKER) (test code 345 mg/dL 70-105 H = 652) POCT-GLUCOSE [id number] 06:50:00 Test Item Value Reference Range Interpretation Comments POC-GLUCOSE METER 373 mg/dL 70-110 H TESTED AT [facility] 6720 (BEAKER) (test code = [place] Cassia [facility] 1538) [address] POCT-GLUCOSE [id number] 06:39:00 Test Item Value Reference Range Interpretation Comments POC-GLUCOSE METER 371 mg/dL 70-110 H TESTED AT [facility] 6720 (BEAKER) (test code = [facility] Cassia [facility] 1538) [address] [id number] 04:16:00 Test Item Value Reference Range Interpretation Comments PHOSPHORUS (BEAKER) (test code = 2.7 mg/dL 2.3-4.7 604) [id number] 04:16:00 Test Item Value Reference Range Interpretation Comments MAGNESIUM (BEAKER) (test code = 2.2 mg/dL 1.6-2.6 627) BASIC METABOLIC [id number] 04:16:00 Test Item Value Reference Range Interpretation [...] PATIEN TS. CBC W/PLT COUNT & AUTO [id number] 04:04:00 Test Item Value Reference Range Interpretation [...] PERCENT (BEAKER) (test code = 2801) POCT-GLUCOSE [id number] 01:54:00 Test Item Value Reference Range Interpretation Comments POC-GLUCOSE METER 403 mg/dL 70-110 Notified R N MD/TESTED (BEAKER) (test code = AT [facility] 6720 [facility] 1538) [facility] 7703 0 HEMOGLOBIN AND [id number] 01:47:00 Test Item Value Reference Range Interpretation Comments HEMOGLOBIN (BEAKER) (test code = 8.7 GM/DL 13.7-17.5 L 410) HEMATOCRIT (BEAKER) (test code = 25.8 % 40.1-51.0 L 411) BASIC METABOLIC [id number] 23:56:00 Test Item Value Reference Range Interpretation [...] NOT APPLICABLE FOR DIALYSIS PATIEN TS. POCT-GLUCOSE [id number] 23:10:00 Test Item Value Reference Range Interpretation Comments POC-GLUCOSE METER 344 mg/dL 70-110 H Notified R N MD/TESTED (BEAKER) (test code = AT [facility] 6720 [facility] 1538) [place] [address] BLOOD GAS, [id number] 23:04:00 Test Item Value Reference Range Interpretation [...] (test 37.0 code = 1818) OXYGEN SATURATION, [id number] 23:01:00 Test Item Value Reference Range Interpretation Comments O2 SATURATION (MEASURED) (BEAKER) 47.5 % (test code = 1455) [id number] 19:02:00 Test Item Value Reference Range Interpretation Comments POTASSIUM (BEAKER) (test code = 6.0 meq/L 3.5-5.1 HH 379) BASIC METABOLIC [id number] 17:34:00 Test Item Value Reference Range Interpretation [...] APPLICABLE FOR DIALYSIS PATIEN TS. HEMOGLOBIN AND [id number] 17:20:00 Test Item Value Reference Range Interpretation Comments HEMOGLOBIN (BEAKER) (test code = 8.6 GM/DL 13.7-17.5 L 410) HEMATOCRIT (BEAKER) (test code = 26.3 % 40.1-51.0 L 411) POCT-GLUCOSE [id number] 09:52:00 Test Item Value Reference Range Interpretation Comments POC-GLUCOSE METER 138 mg/dL 70-110 H TESTED AT [facility] 6720 (BEAKER) (test code = NURIS [place] 1538) [address] HEMOGLOBIN AND [id number] 08:27:00 Test Item Value Reference Range Interpretation Comments HEMOGLOBIN (BEAKER) (test code = 8.8 GM/DL 13.7-17.5 L 410) HEMATOCRIT (BEAKER) (test code = 26.2 % 40.1-51.0 L 411) RAD, CHEST, 1 VIEW, NON [id number] 08:22:00Reason for exam:->pl effusionShould this be performed at the bedside?->YesFINAL REPORT INDICATION: pl effusion COMPARISON: July 30, 2017 TECHNIQUE: Chest radiograph, single view, portable technique. FINDINGS / IMPRESSION: Pulmonary venous congestionand edema has slightly improved. Right midlung linear opacities and left retrocardiac opacity likelyrepresent residual edema or subsegmental atelectasis. Mild enlargement of the cardiac silhouette is unchanged. Left chest tube, mediastinal tube, right internal jugular line, left internal jugular line, and median sternotomy wires are again demonstrated. There is no pneumothorax. Signed: Enrike Miner MDReport Verified Date/Time: 07/31/2017 08:22:41 Reading Location: [facility] Diagnostic Imaging Reading Room - SLSWV F1 1120 -GLUCOSE [id number] 08:03:00 Test Item Value Reference Range Interpretation Comments POC-GLUCOSE METER 104 mg/dL 70-110 TESTED AT [place] [address] ([facility]) (test code = NURIS Antony [facility] 1538) [address] POCT-GLUCOSE [id number] 07:20:00 Test Item Value Reference Range Interpretation Comments POC-GLUCOSE METER 106 mg/dL 70-110 TESTED AT [place] [address] ([facility]) (test code = NURIS Antony [facility] 1538) [address] POCT-GLUCOSE [id number] 07:20:00 Test Item Value Reference Range Interpretation Comments POC-GLUCOSE METER 100 mg/dL 70-110 TESTED AT [place] [address] ([facility]) (test code = NURIS Antony [facility] 1538) [address] POCT-GLUCOSE [id number] 07:20:00 Test Item Value Reference Range Interpretation Comments POC-GLUCOSE METER 111 mg/dL 70-110 H TESTED AT [place] [address] ([facility]) (test code = NURIS Antony [facility] 1538) [address] POCT-GLUCOSE [id number] 04:40:00 Test Item Value Reference Range Interpretation Comments POC-GLUCOSE METER 169 mg/dL 70-110 H TESTED AT [place] [address] ([facility]) (test code = NURIS Antony [facility] 1538) [address] POCT-GLUCOSE [id number] 04:40:00 Test Item Value Reference Range Interpretation Comments POC-GLUCOSE METER 180 mg/dL 70-110 H TESTED AT [place] [address] ([facility]) (test code = NURIS Antony [facility] 1538) [address] CBC W/PLT COUNT & AUTO [id number] 04:07:00 Test Item Value Reference Range Interpretation Comments WHITE BLOOD CELL COUNT ([facility]) 12.1 K/ L 3.5-10.5 H (test code = 775) RED BLOOD CELL COUNT ([facility]) 3.03 M/ L 4.63-6.08 L (test code = 761) HEMOGLOBIN ([facility]) (test code = 9.2 GM/DL 13.7-17.5 L 410) HEMATOCRIT ([facility]) (test code = 27.5 % 40.1-51.0 L [...] 0-1 PERCENT (BEAKER) (test code = 2801) [id number] 03:47:00 Test Item Value Reference Range Interpretation Comments MAGNESIUM (BEAKER) (test code = 2.5 mg/dL 1.6-2.6 627) BASIC METABOLIC [id number] 03:47:00 Test Item Value Reference Range Interpretation [...] DIALYSIS PATIEN TS. LACTIC ACID, ARTERIAL, WHOLE [id number] 03:44:00 Test Item Value Reference Range Interpretation Comments LACTATE BLOOD ARTERIAL (2) 1.5 mmol/L 0.5-2.2 (BEAKER) (test code = 2874) Effective 03/21/2016: Units/Reference Range ChangeNew: 0.5-2.2 mmol/L Previous: 5- 20 mg/dLCALCIUM, [id number] 03:19:00 Test Item Value Reference Range Interpretation Comments CALCIUM IONIZED (BEAKER) (test 1.14 mmol/L 1.12-1.27 code = 698) PH, BLOOD (BEAKER) (test code = 7.36 1810) OXYGEN SATURATION, [id number] 03:19:00 Test Item Value Reference Range Interpretation Comments O2 SATURATION (MEASURED) (BEAKER) 66.3 % (test code = 1455) POCT-GLUCOSE [id number] 01:29:00 Test Item Value Reference Range Interpretation Comments POC-GLUCOSE METER 145 mg/dL 70-110 H TESTED AT [facility] 6720 (BEAKER) (test code = NURIS [place] 1538) [address] POCT-GLUCOSE [id number] 01:29:00 Test Item Value Reference Range Interpretation Comments POC-GLUCOSE METER 152 mg/dL 70-110 H TESTED AT [place] [address] ([facility]) (test code = NURIS [place] 1538) [address] HEMOGLOBIN AND [id number] 00:12:00 Test Item Value Reference Range Interpretation Comments HEMOGLOBIN (KIRA) (test code = 9.4 GM/DL 13.7-17.5 L 410) HEMATOCRIT (SARABJIT) (test code = 27.2 % 40.1-51.0 L 411) POCT-GLUCOSE [id number] 23:59:00 Test Item Value Reference Range Interpretation Comments POC-GLUCOSE METER 178 mg/dL 70-110 H TESTED AT [place] [address] ([facility]) (test code = NURIS [place] 1538) [address] [id number] 21:41:00 Test Item Value Reference Range Interpretation Comments POTASSIUM (KIRA) (test code = 4.7 meq/L 3.5-5.1 379) Check Serum Potassium level 2 hours after oral potassium replacement completed or 30 min after intravenous potassium replacement.[id number] 21:41:00 Test Item Value Reference Range Interpretation Comments MAGNESIUM (KIRA) (test code = 2.1 mg/dL 1.6-2.6 627) Check Serum Potassium level 2 hours after oral potassium replacement completed or 30 min after intravenous potassium replacement.POCT-GLUCOSE [id number] 21:00:00 Test Item Value Reference Range Interpretation Comments POC-GLUCOSE METER 187 mg/dL 70-110 H TESTED AT [place] [address] ([facility]) (test code = NURIS [place] 1538) [address] POCT-GLUCOSE [id number] 21:00:00 Test Item Value Reference Range Interpretation Comments POC-GLUCOSE METER 178 mg/dL 70-110 H TESTED AT [place] [address] ([facility]) (test code = NURIS [place] 1538) [address] POCT-GLUCOSE [id number] 18:42:00 Test Item Value Reference Range Interpretation Comments POC-GLUCOSE METER 221 mg/dL 70-110 H TESTED AT [place] [address] ([facility]) (test code = NURIS [place]nony [place] 1538) [address] POCT-GLUCOSE [id number] 18:41:00 Test Item Value Reference Range Interpretation Comments POC-GLUCOSE METER 244 mg/dL 70-110 H TESTED AT [place] [address] (BEAKER) (test code = NURIS Antony [facility] 1538) [address] POCT-GLUCOSE [id number] 18:41:00 Test Item Value Reference Range Interpretation Comments POC-GLUCOSE METER 269 mg/dL 70-110 H TESTED AT [place] [address] (BEAKER) (test code = NURIS Antony [facility] 1538) [address] POCT-GLUCOSE [id number] 18:41:00 Test Item Value Reference Range Interpretation Comments POC-GLUCOSE METER 306 mg/dL 70-110 H TESTED AT [place] [address] (BEAKER) (test code = NURIS Antony [facility] 1538) [address] POTASSIUM-STAT [id number] 18:32:00 Test Item Value Reference Range Interpretation Comments POTASSIUM (BEAKER) (test code = 3.9 meq/L 3.6-5.5 379) BLOOD GAS, [id number] 18:32:00 Test Item Value Reference Range Interpretation [...] code = 1819) 60.0 % SODIUM NA-STAT [id number] 18:32:00 Test Item Value Reference Range Interpretation Comments SODIUM (BEAKER) (test code = 381) 134 meq/L 135-148 L GLUCOSE-STAT [id number] 18:32:00 Test Item Value Reference Range Interpretation Comments GLUCOSE RANDOM (BEAKER) (test code 190 mg/dL 70-110 H = 652) HGB/HCT (H&H) - STAT [id number] 18:32:00 Test Item Value Reference Range Interpretation Comments HEMOGLOBIN (BEAKER) (test code = 10.5 g/dL 13.0-16.8 L 410) HEMATOCRIT (BEAKER) (test code = 31.0 % 40.0-50.0 L 411) CALCIUM, [id number] 18:32:00 Test Item Value Reference Range Interpretation Comments CALCIUM IONIZED (BEAKER) (test 1.16 mmol/L 1.12-1.27 code = 698) PH, BLOOD (BEAKER) (test code = 7.38 1810) [id number] 16:39:00 Test Item Value Reference Range Interpretation Comments MAGNESIUM (BEAKER) (test code = 1.9 mg/dL 1.6-2.6 627) GLUCOSE-STAT [id number] 16:24:00 Test Item Value Reference Range Interpretation Comments GLUCOSE RANDOM (BEAKER) (test code 252 mg/dL 70-110 H = 652) BLOOD GAS, [id number] 16:24:00 Test Item Value Reference Range Interpretation [...] (test code = 1819) 40.0 % CALCIUM, [id number] 16:24:00 Test Item Value Reference Range Interpretation Comments CALCIUM IONIZED (BEAKER) (test 1.06 mmol/L 1.12-1.27 L code = 698) PH, BLOOD (BEAKER) (test code = 7.39 1810) POTASSIUM-STAT [id number] 16:22:00 Test Item Value Reference Range Interpretation Comments POTASSIUM (BEAKER) (test code = 3.6 meq/L 3.6-5.5 379) RAD, CHEST, 1 VIEW, NON [id number] 14:41:00Reason for exam:->post opShould this be performed [...] the gastric body. Left chest tube and mediastinal drain are in place. Airspace disease in increased interstitial lung markings are grossly unchanged. No pleural effusion or pneumothorax. Cardiomediastinal silhouette is normal in size. Midline sternotomy wires are intact and well aligned. No fracture. Signed: Annie Rubalcavaepjúnior Verified Date/Time: 07/30/2017 14:41:41 Reading Location: [facility] Radiology Reading Room CBC (HEMOGRAM ONLY)2017-07-30 [...] WBC 0-0 (BEAKER) (test code = 413) [id number] 13:04:00 Test Item Value Reference Range Interpretation Comments MAGNESIUM (BEAKER) 2.1 mg/dL 1.6-2.6 Specimen slightly (test code = 627) hemolyzed [id number] 13:04:00 Test Item Value Reference Range Interpretation Comments PHOSPHORUS (BEAKER) 2.5 mg/dL 2.3-4.7 Specimen slightly (test code = 604) hemolyzed BASIC METABOLIC [id number] 13:03:00 Test Item Value Reference Range Interpretation [...] DIALYSIS PATIEN TS. LACTIC ACID, ARTERIAL, WHOLE [id number] 12:57:00 Test Item Value Reference Range Interpretation Comments LACTATE BLOOD 1.8 mmol/L 0.5-2.2 Specimen sligh tly ARTERIAL (2) (BEAKER) hemoly zed (test code = 2874) Effective 03/21/2016: Units/Reference Range ChangeNew: 0.5-2.2 mmol/L Previous: 5- 20 mg/dLCALCIUM, [id number] 12:44:00 Test Item Value Reference Range Interpretation Comments CALCIUM IONIZED (BEAKER) (test 1.12 mmol/L 1.12-1.27 code = 698) PH, BLOOD (BEAKER) (test code = 7.45 1810) GLUCOSE-STAT [id number] 12:44:00 Test Item Value Reference Range Interpretation Comments GLUCOSE RANDOM (BEAKER) (test code 253 mg/dL 70-110 H = 652) HGB/HCT (H&H) - STAT [id number] 12:44:00 Test Item Value Reference Range Interpretation Comments HEMOGLOBIN (BEAKER) (test code = 11.9 g/dL 13.0-16.8 L 410) HEMATOCRIT (BEAKER) (test code = 35.0 % 40.0-50.0 L 411) SODIUM NA-STAT [id number] 12:44:00 Test Item Value Reference Range Interpretation Comments SODIUM (BEAKER) (test code = 381) 131 meq/L 135-148 L POTASSIUM-STAT [id number] 12:44:00 Test Item Value Reference Range Interpretation Comments POTASSIUM (BEAKER) (test code = 4.4 meq/L 3.6-5.5 379) BLOOD GAS, [id number] 12:44:00 Test Item Value Reference Range Interpretation [...] code = 1819) 60.0 % OXYGEN SATURATION, [id number] 12:44:00 Test Item Value Reference Range Interpretation Comments O2 SATURATION (MEASURED) (BEAKER) 55.1 % (test code = 1455) [id number] 12:11:00 Test Item Value Reference Range Interpretation Comments ACTIVATED CLOTTING TIME 555 sec TEST ED AT [place] [address] ([facility]) (test code = [place] 441) [address] [id number] 12:11:00 Test Item Value Reference Range Interpretation Comments ACTIVATED CLOTTING TIME 466 sec TEST ED AT [place] [address] ([facility]) (test code = [place] 441) [address] [id number] 12:11:00 Test Item Value Reference Range Interpretation Comments ACTIVATED CLOTTING TIME 549 sec TEST ED AT [place] [address] ([facility]) (test code = [place] 441) [address] [id number] 12:11:00 Test Item Value Reference Range Interpretation Comments ACTIVATED CLOTTING TIME 428 sec TEST ED AT [place] [address] ([facility]) (test code = [place] 441) [address] [id number] 12:11:00 Test Item Value Reference Range Interpretation Comments ACTIVATED CLOTTING TIME 423 sec TEST ED AT [place] [address] ([facility]) (test code = [place] 441) [address] THROMBOELASTOGRAPH (TEG)2017-07-30 11:42:00 Test Item Value Reference [...] 55.0-65.0 H (test code = 1413) PLATELET [id number] 11:13:00 Test Item Value Reference Range Interpretation Comments PLATELET COUNT (BEAKER) (test 66 K/CU MM 150-450 L OR patient code = 756) PROTHROMBIN [id number] 10:58:00 Test Item Value Reference Range Interpretation Comments PROTIME (BEAKER) (test code = 22.1 seconds 11.7-14.7 H 759) INR (BEAKER) (test code = 370) 1.9 <=5.9 RECOMMENDED COUMADIN/WARFARIN INR THERAPY RANGESSTANDARD DOSE: 2.0 - 3.0 Includes: PROPHYLAXIS for venous thrombosis, systemic embolization; TREATMENT for venous thrombosis and/or pulmonary embolus.HIGH RISK: Target INR is 2.5-3.5 for patients with mechanical heart valves.[id number] 10:58:00 Test Item Value Reference Range Interpretation Comments FIBRINOGEN LEVEL (BEAKER) (test 542 mg/dl 225-434 H code = 658) [id number] 10:58:00 Test Item Value Reference Range Interpretation Comments PARTIAL THROMBOPLASTIN TIME 35.4 seconds 22.5-36.0 (BEAKER) (test code = 760) BLOOD GAS, [id number] 10:45:00 Test Item Value Reference Range Interpretation [...] code = 1819) 92.0 % SODIUM NA-STAT [id number] 10:45:00 Test Item Value Reference Range Interpretation Comments SODIUM (BEAKER) (test code = 381) 128 meq/L 135-148 L GLUCOSE-STAT [id number] 10:45:00 Test Item Value Reference Range Interpretation Comments GLUCOSE RANDOM (BEAKER) (test code 260 mg/dL 70-110 H = 652) HGB/HCT (H&H) - STAT [id number] 10:45:00 Test Item Value Reference Range Interpretation Comments HEMOGLOBIN (BEAKER) (test code = 10.3 g/dL 13.0-16.8 L 410) HEMATOCRIT (BEAKER) (test code = 30.0 % 40.0-50.0 L 411) CALCIUM, [id number] 10:45:00 Test Item Value Reference Range Interpretation Comments CALCIUM IONIZED (BEAKER) (test 1.12 mmol/L 1.12-1.27 code = 698) PH, BLOOD (BEAKER) (test code = 7.44 1810) POTASSIUM-STAT [id number] 10:44:00 Test Item Value Reference Range Interpretation Comments POTASSIUM (BEAKER) (test code = 5.1 meq/L 3.6-5.5 379) POTASSIUM-STAT [id number] 10:03:00 Test Item Value Reference Range Interpretation Comments POTASSIUM (BEAKER) (test code = 5.4 meq/L 3.6-5.5 379) BLOOD GAS, [id number] 10:03:00 Test Item Value Reference Range Interpretation [...] code = 1819) 75.0 % SODIUM NA-STAT [id number] 10:03:00 Test Item Value Reference Range Interpretation Comments SODIUM (BEAKER) (test code = 381) 127 meq/L 135-148 L GLUCOSE-STAT [id number] 10:03:00 Test Item Value Reference Range Interpretation Comments GLUCOSE RANDOM (BEAKER) (test code 263 mg/dL 70-110 H = 652) HGB/HCT (H&H) - STAT [id number] 10:03:00 Test Item Value Reference Range Interpretation Comments HEMOGLOBIN (BEAKER) (test code = 9.6 g/dL 13.0-16.8 L 410) HEMATOCRIT (BEAKER) (test code = 28.0 % 40.0-50.0 L 411) BLOOD GAS, [id number] 09:38:00 Test Item Value Reference Range Interpretation [...] code = 1819) 60.0 % SODIUM NA-STAT [id number] 09:38:00 Test Item Value Reference Range Interpretation Comments SODIUM (BEAKER) (test code = 381) 127 meq/L 135-148 L GLUCOSE-STAT [id number] 09:38:00 Test Item Value Reference Range Interpretation Comments GLUCOSE RANDOM (BEAKER) (test code 256 mg/dL 70-110 H = 652) HGB/HCT (H&H) - STAT [id number] 09:38:00 Test Item Value Reference Range Interpretation Comments HEMOGLOBIN (BEAKER) (test code = 9.4 g/dL 13.0-16.8 L 410) HEMATOCRIT (BEAKER) (test code = 28.0 % 40.0-50.0 L 411) POTASSIUM-STAT [id number] 09:37:00 Test Item Value Reference Range Interpretation Comments POTASSIUM (BEAKER) (test code = 4.8 meq/L 3.6-5.5 379) POTASSIUM-STAT [id number] 09:08:00 Test Item Value Reference Range Interpretation Comments POTASSIUM (BEAKER) (test code = 3.7 meq/L 3.6-5.5 379) BLOOD GAS, [id number] 09:08:00 Test Item Value Reference Range Interpretation [...] code = 1819) 60.0 % SODIUM NA-STAT [id number] 09:08:00 Test Item Value Reference Range Interpretation Comments SODIUM (BEAKER) (test code = 381) 125 meq/L 135-148 L GLUCOSE-STAT [id number] 09:08:00 Test Item Value Reference Range Interpretation Comments GLUCOSE RANDOM (BEAKER) (test code 197 mg/dL 70-110 H = 652) HGB/HCT (H&H) - STAT [id number] 09:08:00 Test Item Value Reference Range Interpretation Comments HEMOGLOBIN (BEAKER) (test code = 8.7 g/dL 13.0-16.8 L 410) HEMATOCRIT (BEAKER) (test code = 26.0 % 40.0-50.0 L 411) CALCIUM, [id number] 08:12:00 Test Item Value Reference Range Interpretation Comments CALCIUM IONIZED (BEAKER) (test 1.06 mmol/L 1.12-1.27 L code = 698) PH, BLOOD (BEAKER) (test code = 7.45 1810) BLOOD GAS, [id number] 08:12:00 Test Item Value Reference Range Interpretation [...] code = 1819) 100.0 % SODIUM NA-STAT [id number] 08:12:00 Test Item Value Reference Range Interpretation Comments SODIUM (BEAKER) (test code = 381) 132 meq/L 135-148 L GLUCOSE-STAT [id number] 08:12:00 Test Item Value Reference Range Interpretation Comments GLUCOSE RANDOM (BEAKER) (test code 243 mg/dL 70-110 H = 652) HGB/HCT (H&H) - STAT [id number] 08:12:00 Test Item Value Reference Range Interpretation Comments HEMOGLOBIN (BEAKER) (test code = 13.4 g/dL 13.0-16.8 410) HEMATOCRIT (BEAKER) (test code = 39.0 % 40.0-50.0 L 411) POTASSIUM-STAT [id number] 08:09:00 Test Item Value Reference Range Interpretation Comments POTASSIUM (BEAKER) (test code = 4.0 meq/L 3.6-5.5 379) [id number] 04:50:00 Test Item Value Reference Range Interpretation Comments MAGNESIUM (BEAKER) (test code = 2.1 mg/dL 1.6-2.6 627) BASIC METABOLIC [id number] 04:50:00 Test Item Value Reference Range Interpretation [...] I S NOT APPLICABLE FOR DIALYSIS PATIEN RAMYA. [id number] 04:49:00 Test Item Value Reference Range Interpretation Comments PARTIAL THROMBOPLASTIN TIME 56.8 seconds 22.5-36.0 H (BEAKER) (test code = 760) CBC W/PLT COUNT & AUTO [id number] 04:48:00 Test Item Value Reference Range Interpretation [...] ABSOLUTE COUNT 0.01 K/ L 0.04-0.54 L (BEAKER) (test code = 416) BASOPHILS ABSOLUTE COUNT (BEAKER) 0.02 K/ L 0.01-0.08 (test code = 417) IMMATURE GRANULOCYTES-RELATIVE 0 % 0-1 PERCENT (BEAKER) (test code = 2801) POCT-GLUCOSE [id number] 23:20:00 Test Item Value Reference Range Interpretation Comments POC-GLUCOSE METER 262 mg/dL 70-110 H TESTED AT [facility] 6720 ([facility]) (test code = NURIS Antony [facility] 1538) [address] RAD, CHEST, 1 VIEW, NON [id number] 22:50:00Reason for exam:->Verfiy central line Should this be performed at the bedside?->YesFINAL REPORT RAD, CHEST, 1 VIEW, NON DEPT INDICATION: Verfiy central line COMPARISON: Chest radiographs dating back to yesterday TECHNIQUE: Single frontal view of the chest. IMPRESSION:Stable positioning of an IABP.New left IJ line which terminates in the right atrium, 4.3 cm awayfrom the atriocaval junction.Worsening patchy airspace opacities in the lungs, left greater than right.Stable cardiomediastinal silhouette.No acute osseous abnormality. Signed: May Moore MDReportVerified Date/Time: 07/29/2017 22:50:59 Reading Location: [facility] B1 [id number] Ortho Consult Reading Room TROPONIN [id number] 21:46:00 Test Item Value Reference Range Interpretation Comments TROPONIN I (BEAKER) (test code = 27.18 ng/mL 0.00-0.03 397) [...] acidosis, acute neurological disease, and persistent tachyarrhythmia.HEMOGLOBIN [id number] 21:42:00 Test Item Value Reference Range Interpretation Comments HEMOGLOBIN A1C ([facility]) (test code = 12.0 % 4.3-6.1 H 368) POCT-GLUCOSE [id number] 21:01:00 Test Item Value Reference Range Interpretation Comments POC-GLUCOSE METER 249 mg/dL 70-110 H TESTED AT [place] [address] ([facility]) (test code = [facility] 1538) [address] POCT-GLUCOSE [id number] 17:57:00 Test Item Value Reference Range Interpretation Comments POC-GLUCOSE METER 268 mg/dL 70-110 H TESTED AT [place] [address] ([facility]) (test code = [facility] 1538) [address] PLATELET AGGREGATION: FUNCTION [id number] 17:11:00 Test Item Value Reference Range Interpretation Comments WEAK ADP 100 % 60-91 H RESULT([facility]) (test code = 2135) PLATELET FUNCTION 60-100% indicates SCREEN INTERP ([facility]) normal platelet (test code = 2173) function [id number] Demar Arteaga MD ([facility]) (test code = (electronic signature) 0733) PLATELET COUNT AGG 149 K/CU MM 150-450 L ([facility]) (test code = 2656) TROPONIN [id number] 14:50:00 Test Item Value Reference Range Interpretation Comments TROPONIN I ([facility]) (test code = 32.64 ng/mL 0.00-0.03 397) Troponin I (TnI) levels [...] neurological disease, and persistent tachyarrhythmia.TSH/FREE T4 IF [id number] 14:34:00 Test Item Value Reference Range Interpretation Comments THYROID STIMULATING HORMONE 0.62 uIU/mL 0.35-4.94 ([facility]) (test code = 772) [id number] 14:02:00 Test Item Value Reference Range Interpretation Comments POTASSIUM ([facility]) (test code = 3.8 meq/L 3.5-5.1 379) [id number] 12:50:00 Test Item Value Reference Range Interpretation Comments PARTIAL THROMBOPLASTIN TIME 53.8 seconds 22.5-36.0 H ([facility]) (test code = 760) POCT-GLUCOSE [id number] 12:02:00 Test Item Value Reference Range Interpretation Comments POC-GLUCOSE METER 225 mg/dL 70-110 H TESTED AT [place] [address] ([facility]) (test code = [facility] [place] 1538) [address] RAD, CHEST, 1 VIEW, NON [id number] 10:25:00Reason for exam:->IABPShould this be performed at the bedside?->YesFINAL REPORT Chest one view compared to July 28, 2017 Discussion: IABP marker is at the aortic knob. Bilateral interstitial opacities are similar. No effusion or pneumothorax. Signed: Jaida Terrazas Verified Date/Time: 07/29/2017 10:25:37 Reading Location: [facility] Radiology Reading Room POCT-GLUCOSE [id number] 08:23:00 Test Item Value Reference Range Interpretation Comments POC-GLUCOSE METER 229 mg/dL 70-110 H TESTED AT [place] [address] ([facility]) (test code = [place] 1538) [address] POCT-GLUCOSE [id number] 06:48:00 Test Item Value Reference Range Interpretation Comments POC-GLUCOSE METER 204 mg/dL 70-110 H TESTED AT [place] [address] ([facility]) (test code = [facility] [place] 1538) [address] CBC W/PLT COUNT & AUTO [id number] 05:33:00 Test Item Value Reference Range Interpretation Comments WHITE BLOOD CELL COUNT (BEAKER) 13.1 K/ L 3.5-10.5 H (test code = 775) RED BLOOD CELL COUNT (BEAKER) 4.43 M/ L 4.63-6.08 L (test code = 761) HEMOGLOBIN (BEAKER) (test code = 13.4 GM/DL 13.7-17.5 L [...] 0-1 PERCENT (BEAKER) (test code = 2801) [id number] 05:15:00 Test Item Value Reference Range Interpretation Comments MAGNESIUM (BEAKER) (test code = 2.4 mg/dL 1.6-2.6 627) BASIC METABOLIC [id number] 05:15:00 Test Item Value Reference Range Interpretation [...] S NOT APPLICABLE FOR DIALYSIS PATIEN TS. LIPID [id number] 05:15:00 Test Item Value Reference Range Interpretation Comments TRIGLYCERIDES (BEAKER) (test code = 152 mg/dL 540) CHOLESTEROL (BEAKER) (test code = 188 mg/dL 631) HDL CHOLESTEROL (BEAKER) (test code 31 mg/dL = 976) LDL CHOLESTEROL CALCULATED (BEAKER) 127 mg/dL (test code = 633) Triglyceride Reference Range: Low Risk <150 Borderline 150-199 High Risk 200- 499 Very High Risk >=500Cholesterol Reference Range: Low Risk <200 Borderline 200-239 High Risk >240HDL Cholesterol Reference Range: Low Risk >=60 High Risk <40LDL Cholesterol Reference Range: Optimal <100 Near Optimal 100-129 Borderline 130-159 High 160-189 Very High >=[id number] 05:05:00 Test Item Value Reference Range Interpretation Comments PARTIAL THROMBOPLASTIN TIME 53.8 seconds 22.5-36.0 H (BEAKER) (test code = 760) [id number] 22:36:00 Test Item Value Reference Range Interpretation Comments MAGNESIUM (BEAKER) (test code = 1.8 mg/dL 1.6-2.6 627) BASIC METABOLIC [id number] 22:36:00 Test Item Value Reference Range Interpretation [...] PATIEN TS. RAD, CHEST, 1 VIEW, NON [id number] 22:14:00While IABP in place and following each repositioning of IABPReason for exam:->While IABP in placeand following each repositioning of IABPShould this be performed at the bedside?->YesFINAL REPORT History: IABP. Comparison: None. Findings: A single view of the chest is submitted. The radiopaque tip of an IABP is at the expected position of the superior margin ofthe aortic arch. The cardiac silhouette is within normal limits for size. There is central pulmonaryvascular congestion. Bilateral interstitial opacities, including peripheral intralobular septal thick ening, is consistent with pulmonary edema. Patchy airspace opacities may reflect a combination of atelectasis and edema but pneumonitis should be excluded clinically. There is no pneumothorax or acute bony abnormality. Signed: Kendrick Roman MDReport Verified Date/Time: 07/28/2017 22:14:48 Reading Location: [address] Reading Room POCT-GLUCOSE [id number] 22:01:00 Test Item Value Reference Range Interpretation Comments POC-GLUCOSE METER 238 mg/dL 70-110 H TESTED AT [facility] 6720 (BEAKER) (test code = [place] 1538) [id number] 21:15:00 Test Item Value Reference Range Interpretation Comments PARTIAL THROMBOPLASTIN TIME 80.4 seconds 22.5-36.0 H (BEAKER) (test code = 760) Prior to initiating heparinCBC (HEMOGRAM ONLY)[id number] 21:05:00 Test Item Value Reference Range Interpretation Comments WHITE BLOOD CELL COUNT (BEAKER) 9.9 K/ L 3.5-10.5 (test code = 775) RED BLOOD CELL COUNT (BEAKER) 4.72 M/ L 4.63-6.08 (test code = 761) HEMOGLOBIN (BEAKER) (test code = 14.2 GM/DL 13.7-17.5 410) HEMATOCRIT (BEAKER) (test code = 41.7 % 40.1-51.0 411) MEAN CORPUSCULAR VOLUME (BEAKER) 88.3 fL 79.0-92.2 (test code = 753) MEAN CORPUSCULAR HEMOGLOBIN 30.1 pg 25.7-32.2 (BEAKER) (test code = 751) MEAN CORPUSCULAR HEMOGLOBIN CONC 34.1 GM/DL 32.3-36.5 (BEAKER) (test code = 752) RED CELL DISTRIBUTION WIDTH 12.5 % 11.6-14.4 (BEAKER) (test code = 412) PLATELET COUNT (BEAKER) (test 169 K/CU MM 150-450 code = 756) MEAN PLATELET VOLUME (BEAKER) 11.9 fL 9.4-12.4 (test code = 754) NUCLEATED RED BLOOD CELLS 0 /100 WBC 0-0 (BEAKER) (test code = 413) [id number] 19:52:00 Test Item Value Reference Range Interpretation Comments ACTIVATED CLOTTING TIME 323 sec TEST ED AT [place] [address] ([facility]) (test code = [facility] [place] [facility]) [address]
[2023-09-20 12:53] LABS: Hematocrit 42.3 % (39.6-49.0); Lymphocytes % 9.5 % (15.3-44.8); MCV 87.8 fL (80-100); Platelets 163 thou/uL (152-406); RBC Red Blood Cell Count 4.81 M/uL (4.33-5.43)
[2023-09-20 12:57] LABS: Protime INR 1.05
[2023-09-20 13:23] LABS: Albumin 3.5 g/dL (3.4-5.0); Bilirubin Direct 0.2 mg/dL (0-0.2); Bilirubin Indirect, Calculated 0.5 mg/dL (0.2-0.8); Bilirubin Total 0.7 mg/dL (0.2-1.0); Potassium 5.5 mEq/L (3.5-5.1); Protein, Total 7.4 g/dL (6.4-8.2)
--- NOTE | 2023-09-20 13:58 | EDPHYS ---
Physician Documentation [facility] Name: Juan Gore Age: 62 yrs Sex: Male : 1960 Arrival Date: 09/20/2023 Time: 11:[address] Private MD: Richardson Handley ED Physician Lisa Thompson HPI: 09/20 12:10 This 62 yrs old Male presents to ER via Ambulatory with complaints of shortness of cp3 breath. 12:10 Patient is a 62-year-old male who presents to the ED with generalized weakness, cp3 congestion, cough, pleuritic chest pain and shortness of breath that started over the last 4 to 5 days no associated fever patienthas been taking Tylenol every day positive for body aches. History of past medical history includes: Hypertension, hypothyroidism, myocardial infarction with a history of stents, triple bypass . Historical: - Allergies: 12:04 No Known Allergies; cm10 - PMHx: 12:04 Diabetes - IDDM; Hypertension; Hypothyroidism; Myocardial infarction; cm10 - PSHx: 12:04 Heart Stents; triple bypass; cm10 - Immunization history:: Adult Immunizations up to date. - Social history:: Smoking status: Patient denies any tobacco usage or history of. - Family history:: not pertinent. ROS: 12:10 Abdomen/GI: Negative for abdominal pain, nausea, vomiting, diarrhea, and constipation, cp3 Back: Negative for injury and pain, MS/Extremity: Negative for injury and deformity, Skin: Negative for injury, rash, and discoloration, Neuro: Negative for headache, weakness, numbness, tingling, and seizure, Psych: Negative for depression, anxiety, suicide ideation, homicidal ideation, and hallucinations, Allergy/Immunology: Negative for hives, rash, and allergies, Endocrine: Negative for neck swelling, polydipsia, polyuria, polyphagia, and marked weight changes, Hematologic/Lymphatic: Negative for swollen nodes, abnormal bleeding, and unusual bruising, 12:10 Constitutional: Positive for body aches, chills, fatigue, 12:10 Cardiovascular: Positive for Pleuritic chest pain with inspiration, 12:10 Respiratory: Positive for shortness of breath, Exam: 12:10 Head/Face: Normocephalic, atraumatic. Eyes: Pupils equal round and reactive to light, cp3 extra-ocular motions intact. Lids and lashes normal. Conjunctiva and sclera are non-icteric and not injected. Cornea within normal limits. Periorbital areas with no swelling, redness, or edema. ENT: Nares patent. No nasal discharge, no septal abnormalities noted. Tympanic membranes are normal and external auditory canals are clear. Oropharynx with no redness, swelling, or masses, exudates, or evidence of obstruction, uvula midline. Mucous membranes moist. Neck: Trachea midline, no thyromegaly or masses palpated, and no cervical lymphadenopathy. Supple, full range of motion without nuchal rigidity, or vertebral point tenderness. No Meningismus. Chest/axilla: Normal chest wall appearance and motion. Nontender with no deformity. No lesions are appreciated. Cardiovascular: Regular rate and rhythm with a normal S1 and S2. No gallops, murmurs, or rubs. Normal PMI, no JVD. No pulse deficits. 12:10 Abdomen/GI: Soft, non-tender, with normal bowel sounds. No distension or tympany. No guarding or rebound. No evidence of tenderness throughout. Back: No spinal tenderness. No costovertebral tenderness. Full range of motion. Male : Normal genitalia with no discharge or lesions. Skin: Warm, dry with normal turgor. Normal color with no rashes, no lesions, and no evidence of cellulitis. MS/ Extremity: Pulses equal, no cyanosis. Neurovascular intact. Full, normal range of motion. Neuro: Awake and alert, GCS 15, oriented to person, place, time, and situation. Cranial nerves II-XII grossly intact. Motor strength 5/5 in all extremities. Sensory grossly intact. Cerebellar exam normal. Normal gait. Psych: Awake, alert, with orientation to person, place and time. Behavior, mood, and affect are within normal limits. 12:10 Constitutional: The patient appears Patient well-appearing no acute distress oxygen is 88-90 on room air patient is nontoxic in appearance not actively dyspneic 12:10 Respiratory: Diminished breath sounds bilaterally no wheezing, Vital Signs: 12:02 BP 102 / 67; Pulse 79; Resp 16; Temp 98(TE); Pulse Ox 92% ; Weight 93.89 kg; Height 6 cm10 ft. 0 in. ; Pain 2/10; 12:30 BP 96 / 62; Pulse 78; Resp 19; Pulse Ox 95% on R/A; eh3 13:00 BP 100 / 58; Pulse 73; Resp 18; Pulse Ox 95% ; eh3 13:30 BP 90 / 54; Pulse 79; Resp 20; Pulse Ox 95% on R/A; eh3 12:02 Body Mass Index 28.07 (93.89 kg, 182.88 cm) cm10 12:02 Pain Scale: Adult cm10 MDM: 11:57 Patient medically screened. 3 13:11 ED course: ekg interpreted by co- q waves in leads III, AVF, abnormal ekg. ED course: cp3 discussed with Dr. Draper - no acute mi. ED course: cardicac monitor interpreted by co- rate 73, sinus rhythm. 13:35 ED course: reviewed trop/bnp and history with cardiology dr valenzuela. cp3 13:37 External Records Reviewed: patient transferred to [facility] in 2017 for subacute mi. 3 13:50 Differential Diagnosis: Other acs, pulmonary embolus, pneumonia, wheezing, uri, cp3 hypoxia. Data reviewed: vital signs, nurses notes, lab test result(s), EKG, radiologic studies. Consideration of Admission/Observation Patient was admitted/placed on observation. Management of patient was discussed with the following: Supervisor Coremaker: Dr. Draper- will come to evaluate patient. 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 I considered the following discharge prescriptions or medication management in the emergency department Medications were administered in the Emergency Department. See MAR. Independent interpretation of the following test(s) in the Emergency Department X-Ray: My interpretation is cxr with cardiomegaly and pulmonary edema. Response to treatment: the patient's symptoms have mildly improved after treatment. 13:50 ED course: patient going to icu. 3 09/20 12:23 Order name: BMP; Complete Time: 13:28 3 09/20 12:23 Order name: Blood Culture Adult (2) 3 09/20 12:23 Order name: CBC with Diff; Complete Time: 13:01 3 09/20 12:23 Order name: CPK; Complete Time: 13:28 3 09/20 12:23 Order name: D-Dimer; Complete Time: 13:01 3 09/20 12:23 Order name: Hepatic Function; Complete Time: 13:28 3 09/20 12:23 Order name: Lipase; Complete Time: 13:28 cp3 09/20 12:23 Order name: Magnesium; Complete Time: 13:28 cp3 09/20 12:23 Order name: NT PRO-BNP; Complete Time: 13:28 cp3 09/20 12:23 Order name: PT-INR; Complete Time: 13:01 cp3 09/20 12:23 Order name: Ptt, Activated; Complete Time: 13:01 cp3 09/20 12:23 Order name: Troponin HS; Complete Time: 13:28 cp3 09/20 12:24 Order name: COVID-19/FLU A+B/RSV cp3 09/20 12:23 Order name: CT Chest For PE Angio cp3 09/20 12:24 Order name: CXR XRAY 3 09/20 12:23 Order name: EKG; Complete Time: 12:24 cp3 09/20 14:00 Order name: CONS Physician Consult EDCA 09/20 12:23 Order name: Cardiac monitoring; Complete Time: 12:40 3 09/20 12:23 Order name: EKG - Nurse/Tech; Complete Time: 12:40 cp3 09/20 12:23 Order name: IV Saline Lock; Complete Time: 12:40 cp3 09/20 12:23 Order name: Labs collected and sent; Complete Time: 12:40 3 09/20 12:24 Order name: O2 Per Protocol; Complete Time: 12:40 cp3 09/20 12:24 Order name: O2 Sat Monitoring; Complete Time: 12:40 3 09/20 13:48 Order name: NPO; Complete Time: 13:52 cp3 Administered Medications: No medications were administered Disposition Summary: 09/20/23 13:57 Hospitalization Ordered Notes: Hospitalization Status: Inpatient Admission cp3 Provider: Julito Manriquez cp3 Location: Intensive Care Unit cp3 Condition: Serious cp3 Problem: an acute exacerbation cp3 Symptoms: are unchanged cp3 Bed/Room Type: Standard cp3 Room Assignment: cp3 Diagnosis - Subsequent non-ST elevation (NSTEMI) myocardial infarction cp3 - Abnormal electrocardiogram [ECG] [EKG] cp3 - Cardiomegaly cp3 - Acute respiratory failure with hypoxia cp3 - Shortness of breath cp3 Discharge Instructions: - Discharge Summary Sheet hb Forms: - Medication Reconciliation Form cp3 - Leadership Thank You Letter cp3 - SBAR form hb Critical care time excluding procedures: 13:50 Critical care time: Bedside Care: 125 minutes. Total time: 125 minutes cp3 Signatures: Dispatcher [employer] Lisa Kennedy MD MD cp3 Radha Eastman RN RN cm10
--- NOTE | 2023-09-20 13:58 | ER ---
Nurse's Notes [facility] Name: Juan Gore Age: 62 yrs Sex: Male : 1960 Arrival Date: 09/20/2023 Time: 11:[address] Private MD: Richardson Handley Diagnosis: Subsequent non-ST elevation (NSTEMI) myocardial infarction;Abnormal electrocardiogram [ECG] [EKG];Cardiomegaly;Acute respiratory failure with hypoxia;Shortness of breath Presentation: 09/20 12:02 Chief complaint: Patient states: Saturday developed a headache, congestion and vomiting. cm10 Pt states that he is also having left shoulder pain, chest tightness. Coronavirus screen: Vaccine status: Patient reports receiving the 2nd dose of the covid vaccine. Client denies travel out of the [place] in the last 14 days. Ebola Screen: Patient denies travel to an Ebola-affected area in the 21 days before illness onset. No symptoms or risks identified at this time. Initial Sepsis Screen: Does the patient meet any 2 criteria? No. Patient's initial sepsis screen is negative. Does the patient have a suspected source of infection? No. Patient's initial sepsis screen is negative. Risk Assessment: Do you want to hurt yourself or someone else? Patient reports no desire to harm self or others. Onset of symptoms was September 20, 2023. 12:02 Method Of Arrival: Ambulatory cm10 12:02 Acuity: CHRISTINE 3 cm10 13:00 Acuity: CHRISTINE 2 hb Historical: - Allergies: 12:04 No Known Allergies; cm10 - PMHx: 12:04 Diabetes - IDDM; Hypertension; Hypothyroidism; Myocardial infarction; cm10 - PSHx: 12:04 Heart Stents; triple bypass; cm10 - Immunization history:: Adult Immunizations up to date. - Social history:: Smoking status: Patient denies any tobacco usage or history of. - Family history:: not pertinent. Screenin:08 [facility] ED Fall Risk Assessment (Adult) Score/Fall Risk Level 0 - 2 = Low Risk. Abuse eh3 screen: Denies threats or abuse. Denies injuries from another. Nutritional screening: No deficits noted. Tuberculosis screening: No symptoms or risk factors identified. Assessment: 12:08 General: Appears in no apparent distress. uncomfortable, Behavior is cooperative, eh3 appropriate for age. Pain: Complains of pain in chest Pain radiates to back. Neuro: Level of Consciousness is awake, alert, obeys commands, Oriented to person, place, time, situation. Cardiovascular: Capillary refill < 3 seconds Patient's skin is warm and dry. Respiratory: Airway is patent Respiratory effort is even, unlabored, Respiratory pattern is regular, symmetrical. GI: Abdomen is round non-distended, Reports nausea. Derm: Skin is pink, warm \T\ dry. Musculoskeletal: Circulation, motion, and sensation intact. 13:00 Reassessment: Patient appears in no apparent distress at this time. Patient and/or eh3 family updated on plan of care and expected duration. Pain level reassessed. Patient is alert, oriented x 3, equal unlabored respirations, skin warm/dry/pink. Vital Signs: 12:02 BP 102 / 67; Pulse 79; Resp 16; Temp 98(TE); Pulse Ox 92% ; Weight 93.89 kg; Height 6 cm10 ft. 0 in. ; Pain 2/10; 12:30 BP 96 / 62; Pulse 78; Resp 19; Pulse Ox 95% on R/A; eh3 13:00 BP 100 / 58; Pulse 73; Resp 18; Pulse Ox 95% ; eh3 13:30 BP 90 / 54; Pulse 79; Resp 20; Pulse Ox 95% on R/A; eh3 12:02 Body Mass Index 28.07 (93.89 kg, 182.88 cm) cm10 12:02 Pain Scale: Adult cm10 ED Course: 11:56 Patient arrived in ED. mr 11:56 Richardson Handley is Private Physician. mr 11:57 Lisa Thompson MD is Attending Physician. cp3 12:04 Triage completed. cm10 12:05 Arm band placed on Patient placed in an exam room, on a stretcher. cm10 12:08 Cluadine Ernandez, RN is Primary Nurse. eh3 12:08 Patient has correct armband on for positive identification. Bed in low position. Call eh3 light in reach. Side rails up X2. Provided Education on: use of call dos santos. Client placed on continuous cardiac and pulse oximetry monitoring. NIBP monitoring applied. 12:53 CXR XRAY In Process Unspecified. EDMS 13:28 Notified ED physician of a critical lab result(s). TROP 20,[id number]. 13:54 Julito Manriquez is Hospitalizing Provider. 3 14:08 No provider procedures requiring assistance completed. Patient admitted, IV remains in [address] Administered Medications: No medications were administered Medication: 14:08 VIS not applicable for this client. 3 Outcome: 13:57 Decision to Hospitalize by Provider. cp3 14:08 Patient left the ED. 3 14:08 Admitted to Music Education Director accompanied by nurse, family with patient, via stretcher, on 3 monitor, 14:08 Condition: stable 14:08 Instructed on the need for admit, Signatures: Dispatcher [employer] EDLisa Ruff MD MD cp3 Richa Bryson, Reg Reg mr Nataly Schumacher RN RN Claudine Ernandez, MELLISA PAK 3 Radha Eastman RN RN cm10 Corrections: (The following items were deleted from the chart) 13:59 12:24 Claudine Ernandez RN is Primary Nurse. 3 3
[2023-09-20] MEDS ORDERED: HEPA 1000U/500MLS 2,000 UNIT/1,000 ML BAG IV ONE ×2 (14:07→14:31)
[2023-09-20] MEDS ORDERED: LIDOCAINE 1% 20 ML MDV ONE (14:07)
[2023-09-20] MEDS ORDERED: FENTANYL CITR 100 MCG/2 ML ONE (14:07)
[2023-09-20] MEDS ORDERED: MIDAZOLAM HCL 2 MG/2 ML INJ ONE (14:08)
[2023-09-20] MEDS ORDERED: CLOPIDOGREL 75 MG TABLET ONE (14:08)
--- NOTE | 2023-09-20 14:08 | P.HP ---
Certification for Inpatient Patient admitted to: Inpatient With expected LOS: <2 Midnights Patient will require the following post-hospital care: None Practitioner: I am a practitioner with admitting privileges, knowledge of patient current condition, hospital course, and medical plan of care. Services: Services provided to patient in accordance with Admission requirements found in Title 42 Section 412.3 of the Code of Federal Regulations <Verna Arriaga - Last Filed: 09/20/23 14:49> Patient History Date of Service: 09/20/23 Primary Care Provider: Dr. Iqbal Reason for admission: NSTEMI History of Present Illness: 62-year-old male with past medical history of Hypertension, hypothyroidism, myocardial infarction with a history of cardiac stents, triple bypass who presents to the ED with chest pain and generalized weakness. He reports chest pain start 5 days ago, is getting progressively worse. He reports associated shortness of breath, flulike symptoms, fever, cough/congestion started 5 days ago. He reports taking Tylenol for fever, bodyaches. No reported abdominal pain, dizziness, confusion, NVD. Plan to admit for NSTEMI, elevated troponin, to Dr Draper. Plan for emergent Cathlab today.Heparin drip started, asa 325, plavix given in ER. Admit to ICU for monitoring. Lab evaluation. CXR MPRESSION: Mild to moderate bilateral interstitial lung opacities probably pulmonary edema. CTA MPRESSION: Negative for a pulmonary embolism. Mild to moderate bilateral interstitial lung opacities probably pulmonary edema. Troponin [id number], BNP 3558, Acute on chronic kidney injury Bun 32, Cr 1.54, NA 132, K5.5, CK 1097, BG 254. RSV, Covid, influenza pending. - Past Medical/Surgical History Diabetic: Yes -: HTN -: HLD -: CAD, PA, HX bypass -: IDDM -: CAB -: PCI - Social History Smoking Status: Unknown if ever smoked Alcohol use: No CD- Drugs: No Caffeine use: Yes Place of Residence: Home <Verna Arriaga - Last Filed: 09/20/23 14:49> Date of Service: 09/20/23 <ben iqbal - Last Filed: 09/21/23 14:55> Allergies No Known Allergies Allergy (Unverified 09/20/23 21:57) Home Medications: Aspirin 81 mg PO DAILY 03/04/19 Atorvastatin Calcium [Lipitor] 40 mg PO BEDTIME 03/04/19 Levothyroxine [Synthroid*] 112 mcg PO [id number] 03/04/19 Metoprolol Succinate 12.5 mg PO DAILY 03/04/19 Montelukast [Singulair*] 10 mg PO DAILY 03/04/19 Pregabalin [Lyrica*] 75 mg PO BID 03/04/19 Insulin Glargine,Hum.rec.anlog [Semglee] 50 unit SQ BID 09/20/23 Review of Systems 10-point ROS is otherwise unremarkable <Verna Arriaga - Last Filed: 09/20/23 14:49> Physical Examination - Physical Exam General: Alert, In no apparent distress, Oriented x3 HEENT: Atraumatic, Normocephalic, PERRLA Neck: Supple, 2+ carotid pulse no bruit, JVD not distended Respiratory: Normal air movement, Diminished, Other (pluretic chest pain) Cardiovascular: Normal pulses, Regular rate/rhythm, Normal S1 S2 Capillary refill: <2 Seconds Gastrointestinal: Normal bowel sounds, Soft and benign Musculoskeletal: No clubbing, No swelling Neurological: Normal speech, Normal strength at 5/5 x4 extr - Studies Laboratory Data (last 24 hrs) 09/20/23 09/20/23 09/20/23 12:43 12:43 12:43 WBC 10.00 Hgb 15.0 Hct 42.3 Plt Count 163 PT 11.6 INR 1.05 APTT 29.8 Sodium 132 L Potassium 5.5 H BUN 32 H Creatinine 1.54 H Glucose 254 H Magnesium 2.0 Total Bilirubin 0.7 AST 149 H ALT 40 Alkaline Phosphatase 61 Lipase 11 L <Verna Arriaga - Last Filed: 09/20/23 14:49> Assessment and Plan - Plan Assessment/Plan NSTEMI, elevated troponin acute heart failure with pulmonary edema HX myocardial infarction with a history of cardiac stents, triple bypass Dr Draper. Plan for emergent Cathlab today.Heparin drip started, asa 325, plavix given in ER. Admit to ICU PRN analgesis, antiemetics, Nitro, daily asprin, antilipid, lipid panel in am Troponin [id number], BNP 3558, CK 1097, BG 254. CXR MPRESSION: Mild to moderate bilateral interstitial lung opacities probably pulmonary edema. CTA MPRESSION: Negative for a pulmonary embolism. Mild to moderate bilateral interstitial lung opacities probably pulmonary edema. ED EKG rate 73 q waves in leads III, AVF, abnormal ekg. ED course: discussed with Dr. Draper/ED physician - no acute mi. flulike symtoms RSV, Covid, influenza pending. Acute on chronic kidney injury -unkn baseline, likely prerenal CHF nephrology consulted Bun 32, Cr 1.54, NA 132, K5.5, trend kidney function, avoid nephrotoxic medications hyperglyemia accucheck achs, ssi resume long acting insulin when po BG 254. Hypertension hypothyroidism resume appop home meds Full code DVT hep gtt Diet NPO Discharge Plan: Home Plan to discharge in: 48 Hours - Advance Directives Does patient have a Living Will: No Does patient have a Durable POA for Healthcare: No - Code Status/Comfort Care Code Status: Full Code Critical Care: No Time Spent Managing Pts Care (In Minutes): 70 <Verna Arriaga - Last Filed: 09/20/23 14:49> - Plan NSTEMI Associated acute heart failure Status post emergent cardiac catheterization. RCA balloon angioplasty done. Unsuccessful stenting. Other diffuse multivessel disease. Heparin drip per cardiology. Beta-cele, aspirin, Plavix. Monitor in the ICU. <ben iqbal - Last Filed: 09/21/23 14:55>
[2023-09-20] MEDS ORDERED: ATROPINE SULF 1 MG/10 ML SYR IV ONE (14:09)
[2023-09-20] MEDS ORDERED: HEPARIN 10,000 UNIT/10 ML VIAL IV ONE ×2 (14:09→15:05)
[2023-09-20] MEDS ORDERED: ASPIRIN 325 MG TAB ONE (14:09)
[2023-09-20] MEDS ORDERED: TICAGRELOR 90 MG TABLET PO ONE (14:09)
[2023-09-20] MEDS ORDERED: Phenylephrine HCl 10 MG/ML 1 ML VIAL ONE (14:15)
[2023-09-20] MEDS ORDERED: NA CHLORIDE 0.9% 500 ML ONE (14:15)
--- NOTE | 2023-09-20 14:21 | RAD REPORT ---
EXAM DESCRIPTION: CT - Chest For Pe Angio - 09/20/2023 2:08 pm CLINICAL HISTORY: sob COMPARISON: None. TECHNIQUE: Dynamically enhanced axial 3 mm thick images of the chest were obtained during administra tion of 100 mL Isovue 370 IV contrast. Coronal and oblique reconstruction images were generated and r eviewed. Exam utilizes a protocol for optimal evaluation of pulmonary arterial tree. Maximum intensity projections 3D imaging was utilized All CT scans are performed using dose optimization technique as appropriate and may include automated exposure control or mA/KV adjustment according to patient size. FINDINGS: A pulmonary embolus is not seen. A thoracic aortic aneurysm is not noted. Small pleural effusions. Cardiomegaly Abrq-ju-lwavxjjf bilateral interstitial lung opacities. IMPRESSION: Negative for a pulmonary embolism. Mild to moderate bilateral interstitial lung opacities probably pulmonary edema
--- NOTE | 2023-09-20 14:22 | RAD REPORT ---
EXAM DESCRIPTION: Hi Single View09/20/2023 12:51 pm CLINICAL HISTORY: sob COMPARISON: 2021 FINDINGS: Mild to moderate bilateral interstitial lung opacities Heart is mildly enlarged Postsurgical changes involve the chest IMPRESSION: Mild to moderate bilateral interstitial lung opacities probably pulmonary edema
[2023-09-20] MEDS ORDERED: FUROSEMIDE 20 MG/ 2ML VIAL ONE (14:43)
[2023-09-20] MEDS ORDERED: GLUCAGON 1 MG/VIAL IM PRN (15:09)
[2023-09-20] MEDS ORDERED: D10W 250 ML BAG IV PRN (15:09)
[2023-09-20] MEDS ORDERED: MORPHINE 4 MG/ML SYR IV PRN (15:09)
[2023-09-20] MEDS ORDERED: ONDANSETRON 4 MG/2 ML VIAL IV PRN (15:09)
[2023-09-20] MEDS ORDERED: NITROGLYCERIN 0.4 MG/TAB SL PRN (15:09)
[2023-09-20] MEDS: INSULIN REGULAR (HUMAN) 100 UNIT/ML SQ SCH ×2 (16:03→20:49)
--- NOTE | 2023-09-20 16:45 | P.CNS ---
Date of Consult: 09/20/23 Reason for Consult: NAVI, hyperkalemia Primary Care Provider: Dr. Manriquez Chief Complaint: NSTEMI History of Present Illness: Pt is a pleasant 62-year old male with past medical history of chronic Type II DM for > 20 years with some eye involvement but denies a knowledge of CKD but has had macrovascular complications with MS x 2, initial episode was in the remote past and led to PCI/stenting and in 2017 they report he underwent CABG x 3. Pt has not followed up with Cardiology in recent years. He developed CP starting Tues, initially episodes were brief but he was also having some DEAN. He came in when chest pain became persistent and radiating to his shoulder and with some shortwindedness and difficulty taking a deep breath. Pt was found to have a significant troponin leak c/w acute MS and was taken emergently to poultry hat[facility] lab[facility]. Pt seen now in the ICU post cath. He denies on going chest pain and shows no resp distress. He is producing urine. Allergies No Known Allergies Allergy (Uncoded 03/04/19 08:20) Unknown Home Medications: Aspirin 81 mg PO DAILY 03/04/19 Atorvastatin Calcium [Lipitor] 40 mg PO BEDTIME 03/04/19 Levothyroxine [Synthroid*] 112 mcg PO [id number] 03/04/19 Metoprolol Succinate 12.5 mg PO DAILY 03/04/19 Montelukast [Singulair*] 10 mg PO DAILY 03/04/19 Pregabalin [Lyrica*] 75 mg PO BID 03/04/19 Insulin Glargine,Hum.rec.anlog [Semglee] 50 unit SQ BID 09/20/23 - Past Medical/Surgical History Diabetic: Yes -: HTN -: HLD -: CAD, MS, HX bypass -: IDDM -: CAB -: PCI - Social History Alcohol use: No CD- Drugs: No Caffeine use: No Place of Residence: Home Review of Systems General: Unremarkable Eyes: Unremarkable ENT: Unremarkable Respiratory: Cough, Shortness of Breath, As per HPI Cardiovascular: Chest Pain, As per HPI Gastrointestinal: Unremarkable Genitourinary: Unremarkable Musculoskeletal: Shoulder Pain Integumentary: Unremarkable Neurological: Unremarkable Lymphatics: Unremarkable Physical Examination Temp Pulse Resp BP Pulse Ox 98 F 79 20 90/54 L 09/20/23 12:02 09/20/23 13:30 09/20/23 13:30 09/20/23 13:30 General: Alert, In no apparent distress, Oriented x3 HEENT: Atraumatic, Normocephalic, Other (LFNC) Neck: Supple Respiratory: Normal air movement, Other (No rales or rhonchi anteriorly) Cardiovascular: No edema, Regular rate/rhythm, Normal S1 S2 Gastrointestinal: Soft and benign, Non-distended, No tenderness Musculoskeletal: No swelling Integumentary: No rashes, No warmth Neurological: Normal speech, Normal tone, Normal affect Laboratory Data (last 24 hrs) 09/20/23 09/20/23 09/20/23 12:43 12:43 12:43 WBC 10.00 Hgb 15.0 Hct 42.3 Plt Count 163 PT 11.6 INR 1.05 APTT 29.8 Sodium 132 L Potassium 5.5 H BUN 32 H Creatinine 1.54 H Glucose 254 H Magnesium 2.0 Total Bilirubin 0.7 AST 149 H ALT 40 Alkaline Phosphatase 61 Lipase 11 L Conclusions/Impression: Labs & imaging reviewed in the EMR A/P) 1. Abnormal results of kidney function studies. Stage 1 NAVI in the setting of acute MS, possible low EF state, relative hypotension, other. Labs in this EMR from last year showed Cr level closer to normal limits but can not exclude some earlier stage of CKD NOS underlying 2. Pt has received two rounds of contrast with CTA in ER and LHC, will monitor closely for signs of BASIM over the next 48h. 3. No IVF given as pt presented with signs of acute pulm edema and BNP is > 1000 and while LHC report is pending, there is verbal report of reduced LVEF and pt likely has high LVEDP. Pt received a push of IV lasix earlier, will cont scheduled IV lasix 40 mg q8h. 4. K level elevated this AM, will repeat potassium STAT as contrast exposure can lead to some extracellular shifting. BG elevated with initial labs so if K level remains elevated, will administer Insulin/dextrose protocol 5. Will place on NAC 600 mg PO BID x 2 doses 6. Will f/u on TTE findings and other reccs by Cardiology as pt appears to have severe tribal and graft vessel CAD and ischemic cardiomyopathy. 7. Will monitor BP closely, if pt develops any cardiogenic shock, will defer to Cardiology on ionotropic or other support. Marquis Prajapati MD, GERARDO
--- NOTE | 2023-09-20 16:50 | OP ---
Date of Procedure: 09/20/2023 Surgeon: ZURI NUNEZ Procedures Performed: 1.Selective coronary angiogram. 2.Left heart catheterization. 3.Balloon angioplasty of severe proximal left circumflex stenosis, could not deliver a stent due to vessel being very small and which is the culprit for the myocardial infarction. Indication: 1.Gvr-TR-xivnnmugz myocardial infarction. 2.Acute congestive heart failure. Access: Right femoral artery 6-Cambodian closed with 6-Cambodian Angio-Seal. Complications: None. Bleeding: Less than 50 mL. Anesthesia: Total sedation time was 1 hour. Description Of Procedure: After risks, benefits, alternatives were explained, patient agreed to proc edure and signed informal consent. Patient was brought in the cardiac catheterization laboratory, pr epped and draped in usual sterile fashion. I accessed the right femoral artery using micropuncture k it, ultrasound guidance, and fluoroscopy, placed a 6-Cambodian [place] sheath and took a 6-Cambodian JL4 c atheter into the aortic root, engaged left main, took standard views and then exchanged for 6-Cambodian JR4 catheter, engaged the RCA, took standard views and the same catheter was used to engage the SVG g raft to RCA and to the OM. They were both occluded and then catheter was pushed into the subclavian artery and engaged the WHITAKER, took standard views and then removed the catheter and gave systemic hepa rin to assure ACT level above 250, loaded with Brilinta 180 and aspirin 325 was given in the ER and t ook 6-Cambodian EBU3.5 guide into aortic root, engaged left main, took short Runthrough wire into the le ft main and left circumflex and placed it distally and I used a 2.0 balloon to do balloon angioplasty . Lesion opened from 99% to 60% with MAYE-3 flow. However, extremely small vessel, heavily calcifie d ostium made it impossible to deliver even the smallest stent and I believe this artery probably dean l not hold the stent, so I will plan on recommending medical management. This patient does not have any targets for any bypass. Then the OM comes off and has mid 70% stenosis and the circ becomes less than 1 mm vessel diffusely diseased about 80%. RCA, apparently it is a dominant circulat ion. It has diffuse 80% proximal to mid and to distal segment, there is a stent that has 50% in-sten t restenosis and then the PDA and the PLB both are less than 1.5 mm vessels and they have about 60% t o 70% stenosis. 1.Patent WHITAKER to LAD. 2.Occluded SVG to OM and occluded SVG to RCA. 3.The LVEDP was elevated between 26 and 30 mmHg. Conclusion: Severe multivessel coronary artery disease, diffusely diseased arteries and small, not a menable to intervention. Culprit is left circumflex, status post successful balloon angioplasty and failed to deliver the stent. Recommendation: Aspirin, Brilinta, heparin 4 hours post sheath removal to be continued for 8 hours. Try to introduce beta-cele and titrate up for a slow heart rate and use Imdur and I recommend med ical management. I do not think those arteries are amenable to intervention. Please obtain an echo on him. /MARIANNE Voice ID: [id number] Report ID: [id number]
[2023-09-20] MEDS ORDERED: PNEUMOCOCCAL VACCINE 0.5 ML IMVAC ONE (17:00)
[2023-09-20 17:18] LABS: SARS-COV-2 RT PCR NEGATIVE (NEGATIVE)
[2023-09-20] MEDS ORDERED: FUROSEMIDE 40 MG/4 ML VIAL IV SCH (17:18)
--- NOTE | 2023-09-20 17:29 | CON ---
Date of Consultation: 09/20/2023 Reason For Consultation: Acute myocardial infarction. History Of Present Illness: 62-year-old male, history of severe multivessel coronary artery disease, status post triple-vessel bypass many years pack, history of diabetes, hypertension, dyslipidemia, a nd hypothyroidism. Had multiple PCIs before his bypass. He comes in with 4-5 days' history of chest pain on and off, pressure-like, radiates to the shoulder and to the back and then became very short of breath with significant orthopnea and lower extremity edema and troponin in the emergency room was in 20,000 range. Denies any diaphoresis or vomiting. Past Medical History: As outlined above in the HPI. Medications: Refer to reconciliation sheet for detailed list. Allergies: NO KNOWN DRUG ALLERGIES. Family History: No premature coronary artery disease or cancer. Social History: He does not smoke or drink. Does not use any drugs. Review of Systems: All systems reviewed and they were negative except as mentioned in the HPI. Physical Examination: Vital Signs: Reviewed. Head and Neck: Pupils are equal, reactive to light. Intact eye movements. Positive JVD. No cervic al lymphadenopathy. Neck is supple. Thyroid is not enlarged. Lungs: Some crackles on both bases. No accessory muscle use or muscle retraction. Heart: Irregular. No extra sounds. Abdomen: Soft, nontender. Bowel sounds positive. No organomegaly. No masses or hernia. No rigidi ty or rebound. Extremities: 1+ edema bilaterally. No clubbing or cyanosis. Intact pulses. Skin: No rash or nodule. Neurologic: Alert, awake, oriented x3. No acute focal deficits appreciated. Investigation: Labs were reviewed. Assessment And Recommendations: 1.Irb-XJ-ngoazbxho myocardial infarction. Emergent coronary angiogram was done. Culprit is the pro ximal left circ, but did balloon angioplasty only as the vessel is too small to deliver a stent, but established MAYE-3 flow and the patient has diffuse coronary artery disease everywhere that is not am enable to intervention such at this point, I loaded him with Brilinta. Continue Brilinta 90 mg q.12 hours, aspirin 81 mg daily. 4 hours after the sheath removal, start on heparin drip and to be contin ued for 48 hours and to optimize medical management with beta-cele and the coronary vasodilators a nd obtain an echocardiogram. 2.Acute systolic heart failure exacerbation, likely has a chronic issue. I gave him one dose of [place] on the table because he was very hypoxic lying flat and the LVEDP was between 25 and 30 mmHg. To continue Lasix 40 mg IV q.12 hours. Carefully monitor BUN, creatinine, and electrolytes. 3.Hypertension. Blood pressure is acceptable. 4.Chronic kidney disease. This could be in part due to the acute heart failure. Should improve wit h diuresis. The long-term prognosis is guarded and I had a long discussion about that with him and his . SR/MODL Voice ID: [id number] Report ID: [id number]
[2023-09-20] MEDS: FUROSEMIDE 40 MG/4 ML VIAL IV SCH (17:32)
[2023-09-20] MEDS: HEPARIN/D5W 25,000 UNIT/500 ML BAG IV PRN (17:33)
[2023-09-20] MEDS: TICAGRELOR 90 MG TABLET PO SCH (17:49)
[2023-09-20 18:18] LABS: Urine Bacteria None Seen /HPF (<20); Urine Bilirubin NEGATIVE (Negative); Urine Blood Negative (Negative); Urine Clarity Clear (Clear); Urine Color Light-Yellow (Yellow); Urine Glucose 3+ (Negative); Urine Mucus Slight /HPF (None Seen); Urine Protein NEGATIVE (Negative); Urine RBC <5 /HPF (None Seen); Urine Urobilinogen Normal (Normal); Urine pH 5.5 (5.0-7.0)
[2023-09-20] MEDS: ATORVASTATIN 40 MG TAB PO SCH (20:43)
[2023-09-20] MEDS ORDERED: ACETYLCYST 20% 800 MG/4 ML VIAL PO SCH (21:00)
[2023-09-20] MEDS: PREGABALIN 75 MG CAP PO SCH (22:07)
[2023-09-21] MEDS: FUROSEMIDE 40 MG/4 ML VIAL IV SCH ×3 (00:38→16:53)
[2023-09-21 04:51] LABS: Absolute Lymphocytes (CBC) 0.9 K/uL (0.7-4.9); Hematocrit 39.2 % (39.6-49.0); Lymphocytes % 8.3 % (15.3-44.8); MCV 87.1 fL (80-100); MPV 10.5 fL (7.6-11.3); Platelets 151 thou/uL (152-406)
[2023-09-21 05:07] LABS: Magnesium 1.9 mg/dL (1.6-2.4); Potassium 4.3 mEq/L (3.5-5.1)
[2023-09-21] MEDS: LEVOTHYROXINE SOD 0.112 MG TAB PO SCH (06:17)
[2023-09-21] MEDS: PREGABALIN 75 MG CAP PO SCH ×2 (08:57→20:25)
[2023-09-21] MEDS: TICAGRELOR 90 MG TABLET PO SCH ×2 (08:57→20:25)
[2023-09-21] MEDS: INSULIN REGULAR (HUMAN) 100 UNIT/ML SQ SCH ×4 (08:57→20:26)
[2023-09-21] MEDS: METOPROLOL XL 25 MG TAB PO SCH ×2 (08:58→20:31)
[2023-09-21] MEDS ORDERED: INSULIN GLARGINE 100 UNIT/ML SQ SCH ×2 (09:00→21:00)
[2023-09-21] MEDS ORDERED: ASPIRIN 325 MG TAB PO SCH (09:00)
[2023-09-21] MEDS ORDERED: INSULIN GLARGINE 100 UNIT/ML SQ ONE (11:10)
--- NOTE | 2023-09-21 12:04 | P.PN ---
Subjective Date of Service: 09/21/23 Primary Care Provider: Dr. Manriquez Chief Complaint: NSTEMI Patient denies any chest pain. Nurse reports positive orthostatic vitals this morning. SBP fell to the 80s by sitting up. Blood sugar readings are elevated. Physical Examination - Vital Signs Temperature: 97.6 F Blood Pressure: 105/62 Pulse: 86 Respirations: 16 Pulse Ox (%): 93 - Studies Laboratory Data (last 24 hrs) 09/20/23 09/20/23 09/20/23 12:43 12:43 12:43 WBC 10.00 Hgb 15.0 Hct 42.3 Plt Count 163 PT 11.6 INR 1.05 APTT 29.8 Sodium 132 L Potassium 5.5 H BUN 32 H Creatinine 1.54 H Glucose 254 H Magnesium 2.0 Total Bilirubin 0.7 AST 149 H ALT 40 Alkaline Phosphatase 61 Lipase 11 L Assessment And Plan - Plan Physical Exam General: Alert, In no apparent distress, Oriented x3 Neck: Supple, JVD not distended Respiratory: Normal air movement, clear to auscultation bilaterally. Cardiovascular: Normal pulses, Regular rate/rhythm, Normal S1 S2 Gastrointestinal: Normal bowel sounds, Soft and benign Musculoskeletal: No swelling Neurological: Normal speech, Normal strength at 5/5 x4 extr Assessment/Plan NSTEMI, elevated troponin acute heart failure with pulmonary edema HX myocardial infarction with a history of cardiac stents, triple bypass Seen by Dr Draper. s/p cardiac catheterization. Patient noted to have severe multiple coronary artery disease. RCA balloon angioplasty done. Unsuccessful stenting. Continue heparin drip, asa 325, Brilinta and statins. Beta-cele as blood pressure will tolerate. Continue IV Lasix. Serial chest x-ray. PRN analgesis. Cardiology to follow. flulike symtoms RSV, Covid, influenza negative Acute on chronic renal failure stage III. nephrology is following Bun 32, Cr 1.54, NA 132, K5.5, Patient is on IV Lasix. Dose per nephrology. trend kidney function, avoid nephrotoxic medications DM type II with hyperglycemia accucheck achs, ssi Resume home dose Lantus insulin Orthostatic hypotension Monitor orthostatic vitals Hypertension hypothyroidism Continue metoprolol as tolerated. Continue home dose Synthroid. Full code DVT: hep gtt Discharge Plan: Home
--- NOTE | 2023-09-21 16:19 | P.PN ---
Date of Service: 09/21/23 Vital Signs Temp Pulse Resp BP Pulse Ox 97.6 F 89 16 126/70 94 09/21/23 12:22 09/21/23 15:00 09/21/23 15:00 09/21/23 15:00 09/21/23 15:00 Medications Atorvastatin Calcium (Atorvastatin 40 Mg Tab) 40 mg PO BEDTIME [facility] Last Admin: 09/20/23 20:43 Dose: 40 mg Dextrose (D10w 250 Ml Bag) 125 ml IV PRN PRN; Protocol PRN Reason: HYPOGLYCEMIA Furosemide (Furosemide 40 Mg/4 Ml Vial) 40 mg IV Q8HR [facility] Last Admin: 09/21/23 08:56 Dose: 40 mg Glucagon (Glucagon 1 Mg/Vial) 1 mg IM 1X PRN; Protocol PRN Reason: HYPOGLYCEMIA Heparin Sodium/Dextrose (Heparin Drip 25,000 Units/5oo Ml Premix) 25,000 unit in 500 mls @ 0 mls/hr IV TITR PRN; Protocol PRN Reason: PER PTT RESULTS Last Admin: 09/20/23 17:33 Dose: 500 mls Insulin Glargine (Insulin Glargine 100 Unit/Ml) 50 unit SQ BID [facility] Insulin Human Regular (Insulin Regular (Human) 100 Unit/Ml) 0 unit SQ ACHS [facility]; Protocol Last Admin: 09/21/23 11:48 Dose: 12 unit Levothyroxine Sodium (Levothyroxine Sod 0.112 Mg Tab) 0.112 mg PO [id number] [facility] Last Admin: 09/21/23 06:17 Dose: 0.112 mg Metoprolol Succinate (Metoprolol Xl 25 Mg Tab) 12.5 mg PO DAILY [facility] Last Admin: 09/21/23 08:58 Dose: Not Given Montelukast Sodium (Montelukast 10 Mg Tab) 10 mg PO DAILY [facility] Morphine Sulfate (Morphine 4 Mg/Ml Syr) 4 mg IV Q4H PRN PRN Reason: Pain scale 8-10 (Severe) Nitroglycerin (Nitroglycerin 0.4 Mg/Tab) 0.4 mg SL UD PRN PRN Reason: Pain scale 2-4 (Mild) Ondansetron HCl (Ondansetron 4 Mg/2 Ml Vial) 4 mg IV Q6HP PRN PRN Reason: NAUSEA / VOMITING Pregabalin (Pregabalin 75 Mg Cap) 75 mg PO BID [facility] Ticagrelor (Ticagrelor 90 Mg Tablet) 90 mg PO BID [facility] Last Admin: 09/21/23 08:57 Dose: 90 mg Microbiology Results 09/20/23 13:23 Blood - Blood Aerobic Blood Culture - Preliminary No growth in 24 hours. 09/20/23 13:23 Blood - Blood Anaerobic Blood Culture - Preliminary No growth in 24 hours. 09/20/23 12:43 Blood - Blood Aerobic Blood Culture - Preliminary No growth in 24 hours. 09/20/23 12:43 Blood - Blood Anaerobic Blood Culture - Preliminary No growth in 24 hours. Assessment/ Plan: Nephrology No dyspnea No chest pain Feeling better No acute events overnight Vitals, medications, blood work and imaging reviewed in the chart. NAD. NCAT. MMM. Neck supple. Normal respiratory effort/ CTA. RRR. Abd ND. No C/C. LE Edema none. No rash. AAO. Normal speech. EXAM DESCRIPTION: CT - Chest For Pe Angio - 09/20/2023 2:08 pm CLINICAL HISTORY: sob COMPARISON: None. TECHNIQUE: Dynamically enhanced axial 3 mm thick images of the chest were obtained during administration of 100 mL Isovue 370 IV contrast. Coronal and oblique reconstruction images were generated and reviewed. Exam utilizes a protocol for optimal evaluation of pulmonary arterial tree. Maximum intensity projections 3D imaging was utilized All CT scans are performed using dose optimization technique as appropriate and may include automated exposure control or mA/KV adjustment according to patient size. FINDINGS: A pulmonary embolus is not seen. A thoracic aortic aneurysm is not noted. Small pleural effusions. Cardiomegaly Lojy-io-nqfavdfn bilateral interstitial lung opacities. IMPRESSION: Negative for a pulmonary embolism. Mild to moderate bilateral interstitial lung opacities probably pulmonary edema A/P Stage I NAVI likely multifactorial including hypotension, IVC & CRS CKD III -No NSAIDs -Continue furosemide Hyponatremia in the setting of hyperglycemia -Continue furosemide -Correct hyperglycemia Hyperkalemia, resolved HTN with CKD/ CHF -Continue Metoprolol Systolic CHF, A/C -Continue furosemide -Low sodium diet DM II with Hyperglycemia -Continue Lantus -RISS Anemia in chronic illness -Monitor H&H Hospitalist note reviewed Case reviewed with Dr. Manriquez
[2023-09-21] MEDS: HEPARIN/D5W 25,000 UNIT/500 ML BAG IV PRN (16:54)
[2023-09-21] MEDS: ATORVASTATIN 40 MG TAB PO SCH (20:25)
[2023-09-21] MEDS: INSULIN GLARGINE 100 UNIT/ML SQ SCH (20:26)
[2023-09-22] MEDS: FUROSEMIDE 40 MG/4 ML VIAL IV SCH ×3 (00:33→16:27)
[2023-09-22 04:46] LABS: Absolute Lymphocytes (CBC) 0.8 K/uL (0.7-4.9); Hematocrit 36.1 % (39.6-49.0); Lymphocytes % 9.2 % (15.3-44.8); MCV 86.5 fL (80-100); MPV 10.1 fL (7.6-11.3); Platelets 133 thou/uL (152-406); RBC Red Blood Cell Count 4.17 M/uL (4.33-5.43)
[2023-09-22 05:08] LABS: Magnesium 1.7 mg/dL (1.6-2.4)
[2023-09-22] MEDS: LEVOTHYROXINE SOD 0.112 MG TAB PO SCH (06:10)
[2023-09-22] MEDS ORDERED: MAGNESIUM SULFATE 1 gm IVPB 1 GM/100 ML BAG IV ONE (06:47)
[2023-09-22] MEDS: MONTELUKAST 10 MG TAB PO SCH (08:19)
[2023-09-22] MEDS: PREGABALIN 75 MG CAP PO SCH ×2 (08:19→20:54)
[2023-09-22] MEDS: METOPROLOL XL 25 MG TAB PO SCH (08:19)
[2023-09-22] MEDS: INSULIN GLARGINE 100 UNIT/ML SQ SCH ×2 (08:19→20:52)
[2023-09-22] MEDS: TICAGRELOR 90 MG TABLET PO SCH ×2 (08:19→20:53)
[2023-09-22] MEDS: INSULIN REGULAR (HUMAN) 100 UNIT/ML SQ SCH ×4 (08:20→20:52)
--- NOTE | 2023-09-22 11:32 | P.PN ---
Subjective Date of Service: 09/22/23 Primary Care Provider: Dr. Manriquez Chief Complaint: NSTEMI Patient denies any new complaint Blood pressure has been relatively stable. Blood sugar readings are elevated. Physical Examination - Vital Signs Temperature: 98.1 F Blood Pressure: 114/64 Pulse: 88 Respirations: 15 Pulse Ox (%): 96 Assessment And Plan - Plan Physical Exam General: Alert, In no apparent distress, Oriented x3 Neck: Supple, JVD not distended Respiratory: Normal air movement, clear to auscultation bilaterally. Cardiovascular: Normal pulses, Regular rate/rhythm, Normal S1 S2, no edema. Gastrointestinal: Normal bowel sounds, Soft and benign Musculoskeletal: No swelling Neurological: Normal speech, Normal strength at 5/5 x4 extr Assessment/Plan NSTEMI, elevated troponin acute heart failure with pulmonary edema HX myocardial infarction with a history of cardiac stents, triple bypass Seen by Dr Draper. s/p cardiac catheterization. Patient noted to have severe multiple coronary artery disease. RCA balloon angioplasty done. Unsuccessful stenting. Heparin drip by cardiology.continue asa 325, Brilinta and statins. Titrate beta-cele as blood pressure will tolerate. IV Lasix per nephrology. Serial chest x-ray. On supplemental oxygen for comfort. No hypoxia. PRN analgesis. Cardiology to follow. Increase activity as tolerated. flulike symtoms RSV, Covid, influenza negative Acute on chronic renal failure stage III. nephrology is following Serum creatinine is probably at baseline Patient is on IV Lasix. Dose per nephrology. trend kidney function, avoid nephrotoxic medications DM type II with hyperglycemia accucheck achs, ssi Continue home dose Lantus insulin. Aggressive insulin sliding scale. Orthostatic hypotension Monitor orthostatic vitals Hypertension hypothyroidism Continue metoprolol and titrate as tolerated. Continue home dose Synthroid. Full code DVT: hep gtt Discharge Plan: Home
[2023-09-22] MEDS: HEPARIN/D5W 25,000 UNIT/500 ML BAG IV PRN (16:27)
[2023-09-22] MEDS: ATORVASTATIN 40 MG TAB PO SCH (20:54)
[2023-09-23] MEDS: FUROSEMIDE 40 MG/4 ML VIAL IV SCH ×3 (01:33→17:14)
[2023-09-23 01:56] LABS: Absolute Lymphocytes (CBC) 1.3 K/uL (0.7-4.9); Hematocrit 34.2 % (39.6-49.0); Lymphocytes % 16.2 % (15.3-44.8); MCV 85.9 fL (80-100); MPV 9.8 fL (7.6-11.3); Platelets 138 thou/uL (152-406); RBC Red Blood Cell Count 3.98 M/uL (4.33-5.43)
[2023-09-23 02:10] LABS: Magnesium 1.8 mg/dL (1.6-2.4); Phosphorus 2.8 mg/dL (2.5-4.9); Potassium 3.4 mEq/L (3.5-5.1)
[2023-09-23] MEDS: LEVOTHYROXINE SOD 0.112 MG TAB PO SCH (05:54)
[2023-09-23] MEDS ORDERED: MAGNESIUM SULFATE 1 gm IVPB 1 GM/100 ML BAG IV ONE (06:15)
[2023-09-23] MEDS ORDERED: POTASSIUM 25 MEQ EFFERV TAB PO ONE (06:15)
[2023-09-23] MEDS: INSULIN REGULAR (HUMAN) 100 UNIT/ML SQ SCH ×4 (07:38→21:00)
[2023-09-23] MEDS: INSULIN GLARGINE 100 UNIT/ML SQ SCH ×2 (07:39→20:33)
[2023-09-23] MEDS: ASPIRIN 81 MG CHEWABLE TABLET PO SCH (07:39)
[2023-09-23] MEDS: PREGABALIN 75 MG CAP PO SCH ×2 (07:39→20:33)
[2023-09-23] MEDS: METOPROLOL XL 25 MG TAB PO SCH (07:40)
[2023-09-23] MEDS: MONTELUKAST 10 MG TAB PO SCH (07:40)
[2023-09-23] MEDS: TICAGRELOR 90 MG TABLET PO SCH ×2 (08:30→20:33)
--- NOTE | 2023-09-23 10:29 | P.PN ---
Date of Service: 09/23/23 Vital Signs Temp Pulse Resp BP Pulse Ox 97.8 F 86 21 H 99/60 95 09/23/23 07:00 09/23/23 10:00 09/23/23 10:00 09/23/23 10:00 09/23/23 10:00 Medications Aspirin (Aspirin 81 Mg Chewable Tablet) 81 mg PO DAILY [facility] Last Admin: 09/23/23 07:39 Dose: 81 mg Atorvastatin Calcium (Atorvastatin 40 Mg Tab) 40 mg PO BEDTIME [facility] Last Admin: 09/22/23 20:54 Dose: 40 mg Dextrose (D10w 250 Ml Bag) 125 ml IV PRN PRN; Protocol PRN Reason: HYPOGLYCEMIA Furosemide (Furosemide 40 Mg/4 Ml Vial) 40 mg IV Q8HR [facility] Last Admin: 09/23/23 07:38 Dose: 40 mg Glucagon (Glucagon 1 Mg/Vial) 1 mg IM 1X PRN; Protocol PRN Reason: HYPOGLYCEMIA Heparin Sodium/Dextrose (Heparin Drip 25,000 Units/5oo Ml Premix) 25,000 unit in 500 mls @ 0 mls/hr IV TITR PRN; Protocol PRN Reason: PER PTT RESULTS Last Admin: 09/22/23 16:27 Dose: 500 mls Insulin Glargine (Insulin Glargine 100 Unit/Ml) 50 unit SQ BID [facility] Last Admin: 09/23/23 07:39 Dose: 50 unit Insulin Human Regular (Insulin Regular (Human) 100 Unit/Ml) 0 unit SQ ACHS [facility]; Protocol Last Admin: 09/23/23 07:38 Dose: 8 unit Levothyroxine Sodium (Levothyroxine Sod 0.112 Mg Tab) 0.112 mg PO [id number] [facility] Last Admin: 09/23/23 05:54 Dose: 0.112 mg Metoprolol Succinate (Metoprolol Xl 25 Mg Tab) 25 mg PO DAILY [facility] Last Admin: 09/23/23 07:40 Dose: 25 mg Montelukast Sodium (Montelukast 10 Mg Tab) 10 mg PO DAILY [facility] Last Admin: 09/23/23 07:40 Dose: 10 mg Morphine Sulfate (Morphine 4 Mg/Ml Syr) 4 mg IV Q4H PRN PRN Reason: Pain scale 8-10 (Severe) Nitroglycerin (Nitroglycerin 0.4 Mg/Tab) 0.4 mg SL UD PRN PRN Reason: Pain scale 2-4 (Mild) Ondansetron HCl (Ondansetron 4 Mg/2 Ml Vial) 4 mg IV Q6HP PRN PRN Reason: NAUSEA / VOMITING Pregabalin (Pregabalin 75 Mg Cap) 75 mg PO BID [facility] Last Admin: 09/23/23 07:39 Dose: 75 mg Ticagrelor (Ticagrelor 90 Mg Tablet) 90 mg PO BID [facility] Last Admin: 09/23/23 08:30 Dose: 90 mg Microbiology Results 09/20/23 13:23 Blood - Blood Aerobic Blood Culture - Preliminary No growth in 24 hours. 09/20/23 13:23 Blood - Blood Anaerobic Blood Culture - Preliminary No growth in 24 hours. 09/20/23 12:43 Blood - Blood Aerobic Blood Culture - Preliminary No growth in 24 hours. 09/20/23 12:43 Blood - Blood Anaerobic Blood Culture - Preliminary No growth in 24 hours. Assessment/ Plan: Nephrology No dyspnea No chest pain Feeling better No acute events overnight Vitals, medications, blood work and imaging reviewed in the chart. NAD. NCAT. MMM. Neck supple. Normal respiratory effort. RRR. Abd ND. No C/C. LE Edema none. No rash. AAO. Normal speech. EXAM DESCRIPTION: CT - Chest For Pe Angio - 09/20/2023 2:08 pm CLINICAL HISTORY: sob COMPARISON: None. TECHNIQUE: Dynamically enhanced axial 3 mm thick images of the chest were obtained during administration of 100 mL Isovue 370 IV contrast. Coronal and oblique reconstruction images were generated and reviewed. Exam utilizes a protocol for optimal evaluation of pulmonary arterial tree. Maximum intensity projections 3D imaging was utilized All CT scans are performed using dose optimization technique as appropriate and may include automated exposure control or mA/KV adjustment according to patient size. FINDINGS: A pulmonary embolus is not seen. A thoracic aortic aneurysm is not noted. Small pleural effusions. Cardiomegaly [id number] bilateral interstitial lung opacities. IMPRESSION: Negative for a pulmonary embolism. Mild to moderate bilateral interstitial lung opacities probably pulmonary edema A/P Stage I NAVI likely multifactorial including hypotension, IVC & CRS CKD III -No NSAIDs -Continue furosemide Hyponatremia in the setting of hyperglycemia -Continue furosemide -Counseled against excessive free water intake Hyperkalemia -Replete as ordered HTN with CKD/ CHF complicated by episodes of hypotension -Continue Metoprolol Systolic CHF, A/C -Continue furosemide -Low sodium diet DM II with Hyperglycemia -Continue Lantus -RISS Anemia in chronic illness -Monitor H&H Hospitalist note reviewed
[2023-09-23] MEDS: HEPARIN/D5W 25,000 UNIT/500 ML BAG IV PRN (13:57)
[2023-09-23 14:22] VITALS: BMI 28.3
--- NOTE | 2023-09-23 18:25 | P.PN ---
Subjective Date of Service: 09/23/23 Primary Care Provider: Dr. Manriquez Chief Complaint: NSTEMI Patient has no new complaint Blood pressure is stable. No issues overnight. Physical Examination - Vital Signs Temperature: 97.3 F Blood Pressure: 108/70 Pulse: 77 Respirations: 24 Pulse Ox (%): 97 Assessment And Plan - Plan Physical Exam General: Alert, In no apparent distress, Oriented x3 Neck: Supple, JVD not distended Respiratory: Normal air movement, clear to auscultation bilaterally. Cardiovascular: Normal pulses, Regular rate/rhythm, Normal S1 S2, no edema. Gastrointestinal: Normal bowel sounds, Soft and benign Musculoskeletal: No swelling Neurological: Normal speech, no focal motor deficit. Assessment/Plan NSTEMI, elevated troponin acute heart failure with pulmonary edema HX myocardial infarction with a history of cardiac stents, triple bypass Seen by Dr Draper. s/p cardiac catheterization. Patient noted to have severe multiple coronary artery disease. RCA balloon angioplasty done. Unsuccessful stenting. Patient completed 72 hours of heparin drip by cardiology recommendation. Continue asa 325, Brilinta and statins. Titrate beta-cele as blood pressure will tolerate. Soft BP is limiting beta- cele titration. IV Lasix per nephrology. On supplemental oxygen for comfort. No hypoxia. PRN analgesis. Cardiology to follow. Echocardiogram done and the result is pending. Increase activity as tolerated. flulike symtoms RSV, Covid, influenza negative Acute on chronic renal failure stage III. nephrology is following NAVI resolved. Serum creatinine is probably at baseline Patient is on IV Lasix. Dose per nephrology. trend kidney function, avoid nephrotoxic medications DM type II with hyperglycemia accucheck achs, ssi Continue home dose Lantus insulin. Aggressive insulin sliding scale. Orthostatic hypotension Monitor orthostatic vitals Hypertension hypothyroidism Continue metoprolol and titrate as tolerated. Continue home dose Synthroid. Full code DVT: Heparin SQ Discharge Plan: Home
[2023-09-23] MEDS: ATORVASTATIN 40 MG TAB PO SCH (20:33)
[2023-09-24] MEDS: FUROSEMIDE 40 MG/4 ML VIAL IV SCH ×2 (00:30→11:37)
[2023-09-24] MEDS: HEPARIN 5000 UNIT/ML 1 ML VIAL SQ SCH ×2 (00:30→09:21)
[2023-09-24 04:25] VITALS: O2SAT 98
[2023-09-24 04:27] LABS: Absolute Lymphocytes (CBC) 1.2 K/uL (0.7-4.9); Hematocrit 37.5 % (39.6-49.0); Lymphocytes % 17.6 % (15.3-44.8); MCV 86.7 fL (80-100); MPV 9.5 fL (7.6-11.3); Platelets 169 thou/uL (152-406); RBC Red Blood Cell Count 4.33 M/uL (4.33-5.43)
[2023-09-24 04:46] LABS: Magnesium 2.3 mg/dL (1.6-2.4); Potassium 3.8 mEq/L (3.5-5.1)
[2023-09-24] MEDS: LEVOTHYROXINE SOD 0.112 MG TAB PO SCH (05:41)
[2023-09-24] MEDS: METOPROLOL XL 25 MG TAB PO SCH (09:14)
[2023-09-24] MEDS: ASPIRIN 81 MG CHEWABLE TABLET PO SCH (09:14)
[2023-09-24] MEDS: MONTELUKAST 10 MG TAB PO SCH (09:14)
[2023-09-24] MEDS: PREGABALIN 75 MG CAP PO SCH (09:14)
[2023-09-24] MEDS: INSULIN REGULAR (HUMAN) 100 UNIT/ML SQ SCH ×2 (09:15→11:35)
[2023-09-24] MEDS: TICAGRELOR 90 MG TABLET PO SCH (09:16)
[2023-09-24] MEDS: INSULIN GLARGINE 100 UNIT/ML SQ SCH (09:16)
--- NOTE | 2023-09-24 13:24 | P.DS ---
Admission Date: 09/20/23 Discharge Date: 09/24/23 Primary Care Provider: Dr. Manriquez Disposition: ROUTINE DISCHARGE Discharge Condition: GOOD Reason for Admission: NSTEMI Consultations: Cardiology - Dr. Draper Nephrology - Dr. Irvin, Dr. Prajapati Brief History of Present Illness: 62yo M, PMH: Hypertension, hypothyroidism, myocardial infarction with a history of cardiac stents, triple bypass Patient presents to the ED with chest pain and generalized weakness. He reports chest pain start 5 days ago, is getting progressively worse. He reports associated shortness of breath, flulike symptoms, fever, cough/congestion started 5 days ago. He reports taking Tylenol for fever, bodyaches. No reported abdominal pain, dizziness, confusion, NVD. Plan to admit for NSTEMI, elevated troponin, to Dr Draper. Plan for emergent Cathlab today.Heparin drip started, asa 325, plavix given in ER. Admit to ICU for monitoring. Lab evaluation. CXR MPRESSION: Mild to moderate bilateral interstitial lung opacities probably pulmonary edema. CTA MPRESSION: Negative for a pulmonary embolism. Mild to moderate bilateral interstitial lung opacities probably pulmonary edema. Troponin 668955, BNP 3558, Acute on chronic kidney injury Bun 32, Cr 1.54, NA 132, K5.5, CK 1097, BG 254. RSV, Covid, influenza pending. Hospital Course: Problem List: NSTEMI Severe multivessel CAD, s/p balloon angioplastsy with unsuccessful stenting (09/20) Acute on chronic systolic CHF h/o CA, h/o triple bypass, previous cardiac stents NAVI on CKD3 IDDM2 Orthostatic hypotension Hypertension hypothyroidism Patient presented to the ED with chest pain, generalized weakness. Troponins were elevated. BNP elevated. EKG without STEMI criteria. Findings consistent with NSTEMI. Cardiology was consulted. Patient underwent heart catheterization with Dr. Draper on 09/20/23. He was found to have severe multivessel CAD, diffusely diseased arteries and small, which were not amenable to intervention. The culprit is left circumflex, s/p successful balloon angioplasty however the vessels were to small to deliver stent. Patient was medically managed with as pirin, brilinta, statin, metoprolol, and completion of 72 hours of heparin drip. Echo obtained this hospitalization on 09/23 and was reportedly normal per Dr. Draper. During his hospitalization, patient was found to have an NAVI. Nephrology was consulted. It was felt patient had a component of cardiorenal syndrome / hypoperfusion and had improvement of his renal function with IV lasix 40 q8hr. Creatinine improved and remained stable rest of hospitalization. Recommend repeat blood work in 1 week to monitor renal function. continue other home medications as previously prescribed. continue aspirin 81mg daily New Medications: Brilinta Lasix 40mg daily Follow up: PCP 3-5 days Cardiology 1-2 weeks Nephrology in ~4 weeks Operative Report: 1. Patent WHITAKER to LAD. 2. Occluded SVG to OM and occluded SVG to RCA. 3. The LVEDP was elevated between 26 and 30 mmHg. Physical Exam: GEN: Alert, oriented, NAD HEENT: Normal conjunctiva, sclera anicteric CV: Regular rate and rhythm, no edema Pulm: Nonlabored respirations on room air, clear bilaterally ABD: Soft, nontender, nondistended Neuro: Normal speech, normal affect Vital Signs/Physical Exam: Temp Pulse Resp BP Pulse Ox 97.3 F 77 18 103/66 95 09/24/23 06:00 09/24/23 11:37 09/24/23 10:00 09/24/23 11:37 09/24/23 10:00 Laboratory Data at Discharge: WBC 6.70 thou/uL (4.3-10.9) 09/24/23 04:16 Hgb 13.0 g/dL (13.6-17.9) L D 09/24/23 04:16 Hct 37.5 % (39.6-49.0) L 09/24/23 04:16 Plt Count 169 thou/uL (152-406) 09/24/23 04:16 PT 11.6 SECONDS (9.5-12.5) 09/20/23 12:43 INR 1.05 09/20/23 12:43 APTT 29.1 SECONDS (24.3-36.9) 09/24/23 04:16 Sodium 131 mEq/L (136-145) L 09/24/23 04:16 Potassium 3.8 mEq/L (3.5-5.1) 09/24/23 04:16 BUN 23 mg/dL (7-18) H 09/24/23 04:16 Creatinine 1.17 mg/dL (0.70-1.30) 09/24/23 04:16 Glucose 208 mg/dL (74-106) H 09/24/23 04:16 Phosphorus 2.8 mg/dL (2.5-4.9) 09/23/23 01:35 Magnesium 2.3 mg/dL (1.6-2.4) 09/24/23 04:16 Total Bilirubin 0.7 mg/dL (0.2-1.0) 09/20/23 12:43 AST 149 U/L (15-37) H 09/20/23 12:43 ALT 40 U/L (16-61) 09/20/23 12:43 Alkaline Phosphatase 61 U/L (45-117) 09/20/23 12:43 Triglycerides 151 mg/dL (<150) H 09/21/23 04:20 Cholesterol 128 mg/dL (<200) 09/21/23 04:20 HDL Cholesterol 39 mg/dL (40-60) L 09/21/23 04:20 Cholesterol/HDL Ratio 3.28 09/21/23 04:20 Lipase 11 U/L (13-75) L 09/20/23 12:43 Home Medications: Aspirin 81 mg PO DAILY 03/04/19 Atorvastatin Calcium [Lipitor] 40 mg PO BEDTIME 03/04/19 Levothyroxine [Synthroid*] 112 mcg PO [id number] 03/04/19 Metoprolol Succinate 12.5 mg PO DAILY 03/04/19 Montelukast [Singulair*] 10 mg PO DAILY 03/04/19 Pregabalin [Lyrica*] 75 mg PO BID 03/04/19 Insulin Glargine,Hum.rec.anlog [Semglee] 50 unit SQ BID 09/20/23 Furosemide [Lasix] 40 mg PO DAILY 30 Days #30 tab 09/24/23 Ticagrelor [Brilinta*] 90 mg PO BID 30 Days #60 tab 09/24/23 New Medications: Ticagrelor [Brilinta*] 90 mg PO BID 30 Days #60 tab Furosemide [Lasix] 40 mg PO DAILY 30 Days #30 tab Physician Discharge Instructions: INSTRUCTIONS: Patient presented to the ED with chest pain, generalized weakness. Troponins were elevated. BNP elevated. EKG without STEMI criteria. Findings consistent with NSTEMI. Cardiology was consulted. Patient underwent heart catheterization with Dr. Draper on 09/20/23. He was found to have severe multivessel CAD, diffusely diseased arteries and small, which were not amenable to intervention. The culprit is left circumflex, s/p successful balloon angioplasty however the vessels were to small to deliver stent. Patient was medically managed with aspirin, brilinta, statin, metoprolol, and completion of 72 hours of heparin drip. Echo obtained this hospitalization on 09/23 and was reportedly normal per Dr. Draper. During his hospitalization, patient was found to have an NAVI. Nephrology was c onsulted. It was felt patient had a component of cardiorenal syndrome / hypoperfusion and had improvement of his renal function with IV lasix 40 q8hr. Creatinine improved and remained stable rest of hospitalization. Recommend repeat blood work in 1 week to monitor renal function. continue other home medications as previously prescribed. continue aspirin 81mg daily New Medications: Brilinta Lasix 40mg daily Follow up: PCP 3-5 days Cardiology 1-2 weeks Nephrology in ~4 weeks Operative Report: 1. Patent WHITAKER to LAD. 2. Occluded SVG to OM and occluded SVG to RCA. 3. The LVEDP was elevated between 26 and 30 mmHg. PROBLEM: NSTEMI, CHEST PAIN GOAL: Clear understanding of disease process Diet: HEART HEALTHY Activity: TOLERATED I Followup: Richardson Handley MD [Primary Care Provider] - Time spent managing pt's care (in minutes): 45
[2023-09-24 13:28] VITALS: TEMP 98.3
[2023-09-24 13:34] VITALS: BP 123/77
--- NOTE | 2023-09-24 17:09 | PN ---
Date of Progress Note: 09/24/2023 Subjective: Seen by bedside. Doing clinically well. No chest pain, and EF on echo was normal. Review of Systems: No chest pain, shortness of breath, orthopnea, or cough. No nausea, vomiting, or diarrhea. All othe r systems were reviewed, they were negative. Objective: Vital Signs: Reviewed. Head and Neck: Pupils are equal, reactive to light. Intact eye movements. No JVD. No cervical lym phadenopathy. Neck is supple. Thyroid is not enlarged. Lungs: Clear to auscultation bilaterally. No rhonchi, wheezing, or crackles. No accessory muscle u se. Heart: Regular rate and rhythm. No extra sounds. Abdomen: Soft, nontender. Bowel sounds positive. No organomegaly. No masses or hernia. No rigidi ty or rebound. Extremities: No edema, clubbing, or cyanosis. Intact pulses. Skin: No rash or nodule. Neurologic: Alert, awake, oriented x3. No acute focal deficits appreciated. Investigations: BUN 23, creatinine 1.1, and hemoglobin is at 13.0. Assessment And Recommendations: 1.Qvr-FL-mtjemlmgk myocardial infarction, status post balloon angioplasty of the left circ, doing we ll. Ejection fraction is normal. Continue current management. The patient has very small coronary arteries and he will benefit from a chronic medical management. He is okay to go home from my [facility]. To follow up with me in the office in 1 to 2 weeks. 2.Dyslipidemia: Continue statin. 3.Congestive heart failure. He appears to be euvolemic. Continue current management. SR/MODL Voice ID: [id number] Report ID: [id number]
--- NOTE | 2023-09-24 19:17 | P.PN ---
Date of Service: 09/24/23 Vital Signs Temp Pulse Resp BP Pulse Ox 98.3 F 81 18 123/77 97 09/24/23 11:00 09/24/23 13:00 09/24/23 13:00 09/24/23 13:00 09/24/23 13:00 Microbiology Results 09/20/23 13:23 Blood - Blood Aerobic Blood Culture - Preliminary No growth in 24 hours. 09/20/23 13:23 Blood - Blood Anaerobic Blood Culture - Preliminary No growth in 24 hours. 09/20/23 12:43 Blood - Blood Aerobic Blood Culture - Preliminary No growth in 24 hours. 09/20/23 12:43 Blood - Blood Anaerobic Blood Culture - Preliminary No growth in 24 hours. Assessment/ Plan: Nephrology No dyspnea No chest pain Feeling better No acute events overnight Vitals, medications, blood work and imaging reviewed in the chart. NAD. NCAT. MMM. Neck supple. Normal respiratory effort. RRR. Abd ND. No C/C. LE Edema none. No rash. AAO. Normal speech. EXAM DESCRIPTION: CT - Chest For Pe Angio - 09/20/2023 2:08 pm CLINICAL HISTORY: sob COMPARISON: None. TECHNIQUE: Dynamically enhanced axial 3 mm thick images of the chest were obtained during administration of 100 mL Isovue 370 IV contrast. Coronal and obl ique reconstruction images were generated and reviewed. Exam utilizes a protocol for optimal evaluation of pulmonary arterial tree. Maximum intensity projections 3D imaging was utilized All CT scans are performed using dose optimization technique as appropriate and may include automated exposure control or mA/KV adjustment according to patient size. FINDINGS: A pulmonary embolus is not seen. A thoracic aortic aneurysm is not noted. Small pleural effusions. Cardiomegaly Cexo-je-lcldjdux bilateral interstitial lung opacities. IMPRESSION: Negative for a pulmonary embolism. Mild to moderate bilateral interstitial lung opacities probably pulmonary edema A/P Stage I NAVI likely multifactorial including hypotension, IVC & CRS CKD III -No NSAIDs -Continue furosemide Hyponatremia -Continue furosemide Hyperkalemia -Monitor level HTN with CKD/ CHF complicated by episodes of hypotension -Continue Metoprolol Systolic CHF, A/C -Continue furosemide -Low sodium diet DM II with Hyperglycemia -Continue Lantus -RISS Anemia in chronic illness -Monitor H&H Hospitalist note reviewed Case reviewed with Dr. Webber
--- NOTE | 2023-09-25 07:23 | ECHO ---
HEIGHT: 6 ft 0 in WEIGHT: 209 lb 0 oz DATE OF STUDY: 09/23/[address]: Julito Manriquez MD 2-DIMENSIONAL: YES M.MODE: YES DOPPLER: YES COLOR FLOW: YES TDS: PORTABLE: YES DEFINITY: BUBBLE STUDY: DIAGNOSIS: CORONARY ARTERY DISEASE, NON ST ELEVATION MYOCARDIAL INFARCTION CARDIAC HISTORY: CATHERIZATION: YES SURGERY: YES PROSTHETIC VALVE: NO PACEMAKER: NO MEASUREMENTS (cm) DIASTOLIC (NORMALS) SYSTOLIC (NORMALS) IVSd 1.1 (0.6-1.2) LA Diam 3.6 (1.9-4.0) LVEF 55% LVIDd 4.7 (3.5-5.7) LVIDs 4.0 (2.0-3.5) %FS LVPWd 1.2 (0.6-1.2) Ao Diam 2.6 (2.0-3.7) 2 DIMENSIONAL ASSESSMENT: RIGHT ATRIUM: NORMAL LEFT ATRIUM: ENLARGED RIGHT VENTRICLE: NORMAL LEFT VENTRICLE: NORMAL TRICUSPID VALVE: MILD TRICUSPID REGURGITATION MITRAL VALVE: SEVERE MITRAL REGURGITATION PULMONIC VALVE: NORMAL AORTIC VALVE: CALCIFIED, NO AORTIC STENOSIS PERICARDIAL EFFUSION: NONE AORTIC ROOT: NORMAL LEFT VENTRICULAR WALL MOTION: NORMAL DOPPLER/COLOR FLOW: SEE BELOW COMMENTS: 1. NORMAL LEFT VENTRICULAR EJECTION FRACTION 55-60% 2. NORMAL WALL MOTION 3. MODERATE DIASTOLIC DYSFUNCTION 4. LEFT ATRIAL ENLARGEMENT 5. MILD TRICUSPID REGURGITATION 6. SEVERE MITRAL REGURGITATION TECHNOLOGIST: JOSHUA BRUSH
== END 2023-09-24 14:10 | disposition home or self-care (01) | DRG 250 ==
LOC: ER 11:53 → ERHOLD 13:55 → 3RD-ICU 15:40
PROVIDERS: ADMIT Internal Medicine; ATTEND Hospitalist
PROC: 02703ZZ Dilation of Coronary Artery, One Artery, Percutaneous Approach (ICD-10-PCS; principal; 2023-09-20)
PROC: 4A023N7 Measurement of Cardiac Sampling and Pressure, Left Heart, Percutaneous Approach (ICD-10-PCS; 2023-09-20)
PROC: B2111ZZ Fluoroscopy of Multiple Coronary Arteries using Low Osmolar Contrast (ICD-10-PCS; 2023-09-20)
DX: I21.4 Non-ST elevation (NSTEMI) myocardial infarction (principal); I50.23 Acute on chronic systolic (congestive) heart failure; J96.01 Acute respiratory failure with hypoxia; N17.9 Acute kidney failure, unspecified; I13.0 Hypertensive heart and chronic kidney disease with heart failure and stage 1 through stage 4 chronic kidney disease, or unspecified chronic kidney disease; E87.1 Hypo-osmolality and hyponatremia; N18.30 Chronic kidney disease, stage 3 unspecified; E11.22 Type 2 diabetes mellitus with diabetic chronic kidney disease; E11.65 Type 2 diabetes mellitus with hyperglycemia; D63.1 Anemia in chronic kidney disease; I95.1 Orthostatic hypotension; E87.5 Hyperkalemia; E03.9 Hypothyroidism, unspecified; E78.5 Hyperlipidemia, unspecified; I25.10 Atherosclerotic heart disease of native coronary artery without angina pectoris; I25.2 Old myocardial infarction; Z95.5 Presence of coronary angioplasty implant and graft; Z95.1 Presence of aortocoronary bypass graft; Z79.4 Long term (current) use of insulin; Z11.52 Encounter for screening for COVID-19; Z79.82 Long term (current) use of aspirin; Z79.899 Other long term (current) drug therapy; Z79.890 Hormone replacement therapy
CPT/HCPCS: 0241U; 36415; 71045; 71275; 76937; 80048; 80061; 80076; 81001; 82550; 82947; 83690; 83735; 83880; 84100; 84132; 84484; 85025; 85379; 85610; 85730; 87040; 92920; 93005; 93306; 93458; 99285; C1725; C1760; C1893; G0269; J0461; J1644; J1815; J1940; J2001; J2250; J2371; J3010; J3475; J7040; Q9967

== ENCOUNTER 2023-09-27 16:25 | Inpatient (IN) | payer BC, OTHER ==
--- OUTSIDE RECORDS SUMMARY | 2023-09-27 16:31 | XMS REPORT | Continuity of Care Document ---
:1960 Author Organization [facility] t Address [address] [facility] [address] [place] [address] Care Team Providers Name Role Phone THEODORA PINEDA Primary Care Physician Unavailable RADIOLOGY Attending Clinician Unavailable Radiology Attending Clinician Unavailable BENNETT WASHINGTON Attending Clinician Unavailable SAURABH PAGE Attending Clinician Unavailable THEODORA PINEDA Admitting Clinician Unavailable SAURABH PAGE Admitting Clinician Unavailable Payers Payer Name Policy Type Policy Number Effective Date [facility] Date [id number] 2019 00:00:00 Problems Condition Condition Condition Status [...] mellitus 00 Center with with hyperglyce hyperglyce [place] CAD CAD Disease Recurre [facility] (coronary (coronary nce 07-29 [facility] artery artery 00:00: Medical disease), disease), 00 [place] coronary artery artery Type 2 Type 2 Disease Recurre 2017-[address] [facility] diabetes diabetes nce 07-29 [facility] mellitus mellitus 00:00: Medica l with other with other 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 y complicati complicati on on Mixed Mixed Disease Recurre [facility] hyperlipid hyperlipid nce 07-29 Callie kes emia emia 00:00: Medical 00 Center STEMI (ST STEMI (ST Disease Recurre [facility] elevation elevation mee 07-28 ke s myocardial myocardial 00:00: Me dical infarction infarction 00 Ce nter ) ) Essential Essential Disease Recurre [facility] hypertensi hypertensi mee Callie kes [facility] Allergies, Adverse Reactions, Alerts Allergy Allergy Status Severity Reaction(s) Onset Inactive Treating Comm ents Source Name Type Date Date Clinician NO KNOWN Allergy Active [facility] NO KNOWN Drug Active Univers ALLERGIE Class ity of S [facility] Social History Social Habit Start Date Stop Date Quantity Comments Source Exposure to 2022-05-20 2022-05-30 Not sure University SARS-CoV-2 00:00:00 17:02:00 [facility] (event) Branch Tobacco use and 2017-07-29 2017-07-29 Smokeless tobacco [facility] exposure 00:00:00 00:00:00 non-user Medical Center Sex Assigned At [address] [facility] Callie kes 00:00:00 00:00:00 Medical Center Smoking Status Start Date Stop Date Source Tobacco smoking consumption [facility] Branch Never smoked tobacco [facility] Medications Ordered Filled Start Stop Current Ordering Indication Dosage Frequency Signature Comments Components Source Medication Medication Date Date Medication? Clinician (SIG) Name Name montelukast 2016-11 Yes 10mg QD Take [address] [facility] (SINGULAIR) 0-03 by mouth Luke s 10 mg 09:44: nightly. Medical tablet 21 Center pregabalin 2016-11 Yes 75mg Q.[id number] Take [address] [facility] (LYRICA) 75 0-03 [id number] by mouth 3 [facility] MG capsule 09:44: 3D (three) Medi jovanny 21 times Center daily. montelukast 2016-11 Yes 10mg QD Take [address] [address] (SINGULAIR) 0-03 by mouth Luke s 10 mg 09:44: nightly. Medical tablet 21 Center pregabalin 2017- Yes 75mg Q.[id number] Take [address] [address] (LYRICA) 75 0-03 [id number] by mouth 3 [facility] MG capsule 09:44: 3D (three) Medi jovanny 21 times Center daily. metFORMIN 2017- Yes 500mg Take 1 [facility] (GLUCOPHAGE 9-22 tablet [facility] ) 500 MG 00:00: (500 mg Medica l tablet 00 total) by Center mouth 2 (two) times daily with breakfast and dinner. insulin 2017- Yes 30U Q.5D Inject 0.[address] detemir 9-22 mLs (30 [facility] (LEVEMIR) 00:00: Units Medical 100 unit/mL 00 total) Center (3 mL) InPn subcutaneo injection usly 2 (two) times daily. insulin Yes 8U Inject [facility] lispro 200 9-22 8-20 Units Nuvia es unit/mL (3 00:00: subcutaneo M edical mL) InPn 00 usly 3 Center (three) times daily before meals. metFORMIN 2017- Yes 500mg Take 1 [facility] (GLUCOPHAGE 9-22 tablet [facility] ) 500 MG 00:00: (500 mg Medica l tablet 00 total) by Center mouth 2 (two) times daily with breakfast and dinner. insulin Yes 30U Q.5D Inject 0.[address] detemir 9-22 mLs (30 [facility] (LEVEMIR) 00:00: Units Medical 100 unit/mL 00 total) Center (3 mL) InPn subcutaneo injection usly 2 (two) times daily. insulin 2016-0 Yes 8U Inject [facility] lispro 200 9-22 8-20 Units Nuvia es unit/mL (3 00:00: subcutaneo M edical mL) InPn 00 usly 3 Center (three) times daily before meals. Procedures This patient has no known procedures. Encounters Start End Encounter Admission Attending Care Care Encounter Source Date/Time Date/Time Type Type Clinicians Facility Department ID 2022-05-30 2022-05-30 Outpatient R RADIOLOGY [facility] [id number] Univers 17:02:26 23:59:00 ity [facility] 2022-05-30 2022-05-30 [facility] Radiology [facility] [id number] Univers 17:00:00 23:59:00 Encounter MINI [id number] itLamine [id number] [facility] [id number] [facility] 807 Branch Results Test Description Test Time Test Comments Results Result Comments Source POCT-ACT 2017-10-08 03:05:00 Test Item Value Reference Range Interpretation Comme nts ACTIVATED CLOTTING TIME (BEAKER) (test 120 sec TESTED AT [facility] [address] code = 441) [place] [address] B-TYPE NATRIURETIC FACTOR (BNP)2017-08-16 10:44:00 Test Item Value Reference Range Interpretation Comments B-TYPE NATRIURETIC PEPTIDE (BEAKER) 456 pg/mL 0-100 H (test code = 700) [id number] 10:36:00 Test Item Value Reference Range Interpretation Comments MAGNESIUM (BEAKER) (test code = 2.0 mg/dL 1.6-2.6 627) BASIC METABOLIC [id number] 10:36:00 Test Item Value Reference Range Interpretation Comments SODIUM (BEAKER) 135 meq/L 136-145 L (test code = 381) POTASSIUM (BEAKER) 5.1 meq/L 3.5-5.1 (test code = 379) CHLORIDE (BEAKER) 100 meq/L 98-107 (test code = 382) CO2 (BEAKER) (test 27 meq/L code = 355) BLOOD UREA NITROGEN 26 [...] NOT APPLICABLE FOR DIALYSIS PATIEN TS. POCT-GLUCOSE [id number] 13:51:00 Test Item Value Reference Range Interpretation Comments POC-GLUCOSE METER 272 mg/dL 70-110 H TESTED AT [facility] 6720 (BEAKER) (test code = NURIS Antony [place] 1538) [address] POCT-GLUCOSE [id number] 08:46:00 Test Item Value Reference Range Interpretation Comments POC-GLUCOSE METER 205 mg/dL 70-110 H TESTED AT [facility] 6720 (BEAKER) (test code = NURIS Antony [place] 1538) [address] BASIC METABOLIC [id number] 07:46:00 Test Item Value Reference Range Interpretation [...] PATIEN TS. CBC W/PLT COUNT & AUTO [id number] 07:19:00 Test Item Value Reference Range Interpretation [...] PERCENT (BEAKER) (test code = 2801) POCT-GLUCOSE [id number] 21:01:00 Test Item Value Reference Range Interpretation Comments POC-GLUCOSE METER 189 mg/dL 70-110 H TESTED AT [facility] 6720 [facility] (test code = NURIS [place] 1538) [address] POCT-GLUCOSE [id number] 17:30:00 Test Item Value Reference Range Interpretation Comments POC-GLUCOSE METER 260 mg/dL 70-110 H TESTED AT [facility] 6720 (BEAKER) (test code = NURIS [place] 1538) [address] POCT-GLUCOSE [id number] 12:53:00 Test Item Value Reference Range Interpretation Comments POC-GLUCOSE METER 322 mg/dL 70-110 H TESTED AT [facility] 6720 (BEAKER) (test code = NURIS Antony [place] 1538) [address] RAD, CHEST, 1 VIEW, NON [id number] 07:53:00Reason for exam:->acute pulmonary edema, aggressive diuresis [...] Acharya Verified Date/Time: 08/08/2017 07:53:05 Reading Location: [facility] Diagnostic Imaging Reading Room - [place] [address] POCT-GLUCOSE [id number] 07:40:00 Test Item Value Reference Range Interpretation Comments POC-GLUCOSE METER 248 mg/dL 70-110 H TESTED AT [facility] 6720 [facility] (test code = NURIS Antony [facility] 1538) [address] BASIC METABOLIC [id number] 03:58:00 Test Item Value Reference Range Interpretation [...] PATIEN TS. CBC W/PLT COUNT & AUTO [id number] 03:46:00 Test Item Value Reference Range Interpretation [...] IMMATURE GRANULOCYTES-RELATIVE 2 % 0-1 H PERCENT ([facility]) (test code = 2801) POCT-GLUCOSE [id number] 20:37:00 Test Item Value Reference Range Interpretation Comments POC-GLUCOSE METER 281 mg/dL 70-110 H TESTED AT [place] [address] ([facility]) ([facility] = [facility] 1538) [address] POCT-GLUCOSE [id number] 17:10:00 Test Item Value Reference Range Interpretation Comments POC-GLUCOSE METER 294 mg/dL 70-110 H TESTED AT [place] [address] ([facility]) (test code = [facility] Cassia [facility] 1538) [address] CBC W/PLT COUNT & AUTO [id number] 11:54:00 Test Item Value Reference Range Interpretation [...] = 481) RAD, CHEST, 1 VIEW, NON [id number] 10:23:00Reason for exam:->acute pulmonary edema, aggressive diuresis over 24hrs.Should this be performed at the bedside?->YesFINAL REPORT COMPARISON: 08/06/2017 TECHNIQUE: Single view of the chest FINDINGS: Mild bilateral interstitial opacities are stable. No large effusions or pneumothorax. Right-sided internal jugular central line has been removed. No other significant change. Signed: Gerson Krishnamurthy MDReport Verified Date/Time: 08/07/2017 10:23:55 Reading Location: [facility] Radiology Reading Room HEPATIC FUNCTION [id number] 09:31:00 Test Item Value Reference Range Interpretation [...] = 430 U/L 6-55 H 347) POCT-GLUCOSE [id number] 08:08:00 Test Item Value Reference Range Interpretation Comments POC-GLUCOSE METER 220 mg/dL 70-110 H TESTED AT [facility] 6720 (BEAKER) (test code = NUR[place] 1538) [address] BASIC METABOLIC [id number] 07:41:00 Test Item Value Reference Range Interpretation [...] NOT APPLICABLE FOR DIALYSIS PATIEN TS. DIGOXIN [id number] 04:05:00 Test Item Value Reference Range Interpretation Comments DIGOXIN LEVEL (BEAKER) (test code = 0.5 ng/mL 0.8-2.0 L 669) BASIC METABOLIC [id number] 03:59:00 Test Item Value Reference Range Interpretation [...] NOT APPLICABLE FOR DIALYSIS PATIEN TS. POCT-GLUCOSE [id number] 22:55:00 Test Item Value Reference Range Interpretation Comments POC-GLUCOSE METER 325 mg/dL 70-110 H Notified R Kathrine GATES/TESTED (SARABJIT) (test code = AT [facility] [address] 1538) [place] [address] POCT-GLUCOSE [id number] 19:37:00 Test Item Value Reference Range Interpretation Comments POC-GLUCOSE METER 246 mg/dL 70-110 H TESTED AT [facility] 6720 ([facility]) (test code = NURIS [place] 1538) [address] RAD, CHEST, 1 VIEW, NON [id number] 18:59:00Reason for exam:->PICC line placementFINAL REPORT INDICATION: [...] MDReport Verified Date/Time: 08/06/2017 18:59:58 Reading Location: [address] Consult Reading Room POCT-GLUCOSE [id number] 17:33:00 Test Item Value Reference Range Interpretation Comments POC-GLUCOSE METER 274 mg/dL 70-110 H TESTED AT [place] [address] ([facility]) (test code = NURIS Antony [facility] 1538) [address] POCT-GLUCOSE [id number] 17:12:00 Test Item Value Reference Range Interpretation Comments POC-GLUCOSE METER 223 mg/dL 70-110 H TESTED AT [place] [address] ([facility]) (test code = NURIS Antony [facility] 1538) [address] B-TYPE NATRIURETIC FACTOR (BNP)2017-08-06 15:08:00 Test Item Value Reference Range Interpretation Comments B-TYPE NATRIURETIC PEPTIDE 2043 pg/mL 0-100 H ([facility]) (test code = 700) [id number] 15:00:00 Test Item Value Reference Range Interpretation Comments POTASSIUM ([facility]) (test code = 3.9 meq/L 3.5-5.1 379) 8 hours after PO replacement completedPOCT-GLUCOSE [id number] 14:03:00 Test Item Value Reference Range Interpretation Comments POC-GLUCOSE METER 347 mg/dL 70-110 H Notified R Kathrine GATES/TESTED ([facility]) (test code = AT [place] [address] [facility] [address] POCT-GLUCOSE [id number] 13:08:00 Test Item Value Reference Range Interpretation Comments POC-GLUCOSE METER 359 mg/dL 70-110 H Notified R Kathrine GATES/MOISES ([facility]) (test code = AT [facility] [address] [place] [address]) [facility] 7[address] RAD, CHEST, 1 VIEW, NON [id number] 11:39:00Reason for exam:->acute pulmonary edema, aggressive diuresis [...] Peck Verified Date/Time: 08/06/2017 11:39:35 Reading Location: [facility] Radiology Reading Room POCT-GLUCOSE [id number] 11:21:00 Test Item Value Reference Range Interpretation Comments POC-GLUCOSE METER 368 mg/dL 70-110 H TESTED AT [place] [address] ([facility]) (test code = NURIS Antony [place] [address]) [address] POCT-GLUCOSE [id number] 09:31:00 Test Item Value Reference Range Interpretation Comments POC-GLUCOSE METER 270 mg/dL 70-110 H TESTED AT [place] [address] ([facility]) (test code = GILID Cassia [place] [id number]) [address] [id number] 08:45:00 Test Item Value Reference Range Interpretation Comments PARTIAL THROMBOPLASTIN TIME 45.7 seconds 22.5-36.0 H ([facility]) (test code = 760) POCT-GLUCOSE [id number] 08:26:00 Test Item Value Reference Range Interpretation Comments POC-GLUCOSE METER 200 mg/dL 70-110 H TESTED AT [place] [address] ([facility]) (test code = GILID Cassia [place] [address]) [address] (MANUAL DIFFERENTIAL)2017-08-06 08:22:00 Test Item Value Reference [...] = 478) CBC W/PLT COUNT & AUTO [id number] 08:18:00 Test Item Value Reference Range Interpretation [...] H PERCENT (BEAKER) (test code = 2801) [id number] 06:55:00 Test Item Value Reference Range Interpretation Comments PARTIAL THROMBOPLASTIN TIME 110.4 seconds 22.5-36.0 H (BEAKER) (test code = 760) POCT-GLUCOSE [id number] 06:13:00 Test Item Value Reference Range Interpretation Comments POC-GLUCOSE METER 116 mg/dL 70-110 H TESTED AT [facility] 6720 ([facility]) (test code = NURIS Antony [facility] 1538) [address] POCT-GLUCOSE [id number] 05:14:00 Test Item Value Reference Range Interpretation Comments POC-GLUCOSE METER 97 mg/dL 70-110 TESTED AT [place] [address] ([facility]) (test code = [facility] [address] 1538) POCT-GLUCOSE [id number] 04:45:00 Test Item Value Reference Range Interpretation Comments POC-GLUCOSE METER 84 mg/dL 70-110 TESTED AT [facility] 6720 (BEAKER) (test code = [place] [address] 1538) HEPATITIS PANEL, [id number] 04:24:00 Test Item Value Reference Range Interpretation Comments HEPATITIS A IGM ANTIBODY (BEAKER) Nonreactive Nonreactive (test code = 498) HEPATITIS B CORE IGM ANTIBODY Nonreactive Nonreactive (BEAKER) (test code = 645) HEPATITIS C ANTIBODY (BEAKER) Nonreactive Nonreactive (test code = 367) HEPATITIS B SURFACE ANTIGEN (2) Nonreactive Nonreactive (BEAKER) (test code = 2585) BASIC METABOLIC [id number] 04:02:00 Test Item Value Reference Range Interpretation [...] S NOT APPLICABLE FOR DIALYSIS PATIEN TS. [id number] 04:00:00 Test Item Value Reference Range Interpretation Comments PHOSPHORUS (BEAKER) (test code = 3.0 mg/dL 2.3-4.7 604) [id number] 04:00:00 Test Item Value Reference Range Interpretation Comments MAGNESIUM (BEAKER) (test code = 2.1 mg/dL 1.6-2.6 627) LACTIC ACID, VENOUS, WHOLE [id number] 03:59:00 Test Item Value Reference Range Interpretation Comments LACTATE BLOOD VENOUS (2) (AKER) 0.9 mmol/L 0.5-2.2 (test code = 2872) Effective 03/21/2016: Units/Reference Range ChangeNew: 0.5-2.2 mmol/L Previous: 5- 20 mg/dLOXYGEN SATURATION, [id number] 03:47:00 Test Item Value Reference Range Interpretation Comments O2 SATURATION (MEASURED) (AKER) 59.5 % (test code = 1455) Mixed venous from central line.POCT-GLUCOSE [id number] 03:16:00 Test Item Value Reference Range Interpretation Comments POC-GLUCOSE METER 112 mg/dL 70-110 H TESTED AT [place] [address] ([facility]) (test code = NURIS Antony [facility] 1538) [address] POCT-GLUCOSE [id number] 02:12:00 Test Item Value Reference Range Interpretation Comments POC-GLUCOSE METER 121 mg/dL 70-110 H TESTED AT [place] [address] ([facility]) (test code = NURIS Antony [facility] 1538) [address] POCT-GLUCOSE [id number] 01:16:00 Test Item Value Reference Range Interpretation Comments POC-GLUCOSE METER 141 mg/dL 70-110 H TESTED AT [place] [address] ([facility]) (test code = NURIS Antony [facility] 1538) [address] POCT-GLUCOSE [id number] 00:01:00 Test Item Value Reference Range Interpretation Comments POC-GLUCOSE METER 198 mg/dL 70-110 H TESTED AT [place] [address] ([facility]) (test code = NURIS Antony [facility] 1538) [address] BASIC METABOLIC [id number] 23:14:00 Test Item Value Reference Range Interpretation [...] PATIEN TS. 8 hours after PO replacement [id number] 23:13:00 Test Item Value Reference Range Interpretation Comments POTASSIUM (BEAKER) (test code = 3.7 meq/L 3.5-5.1 379) 8 hours after PO replacement completedOXYGEN SATURATION, [id number] 22:50:00 Test Item Value Reference Range Interpretation Comments O2 SATURATION (MEASURED) ([facility]) 51.9 % (test code = 1455) POCT-GLUCOSE [id number] 22:20:00 Test Item Value Reference Range Interpretation Comments POC-GLUCOSE METER 220 mg/dL 70-110 H TESTED AT [facility] 6720 ([facility]) (test code = [facility] Cassia [facility] 1538) [address] [id number] 21:20:00 Test Item Value Reference Range Interpretation Comments PARTIAL THROMBOPLASTIN TIME 62.2 seconds 22.5-36.0 H (AKER) (test code = 760) POCT-GLUCOSE [id number] 20:47:00 Test Item Value Reference Range Interpretation Comments POC-GLUCOSE METER 209 mg/dL 70-110 H TESTED AT [facility] 6720 ([facility]) (test code = NURIS Antony [facility] 1538) [address] POCT-GLUCOSE [id number] 19:51:00 Test Item Value Reference Range Interpretation Comments POC-GLUCOSE METER 176 mg/dL 70-110 H TESTED AT [facility] 67 ([facility]) (test code = NURIS Antony [facility] 1538) [address] [id number] 18:54:00 Test Item Value Reference Range Interpretation Comments POTASSIUM (BEAKER) (test code = 3.4 meq/L 3.5-5.1 L 379) 8 hours after PO replacement completedPOCT-GLUCOSE [id number] 18:50:00 Test Item Value Reference Range Interpretation Comments POC-GLUCOSE METER 112 mg/dL 70-110 H TESTED AT [place] [address] ([facility]) (test code = NURIS Antony [place] 1538) [address] [id number] 18:34:00 Test Item Value Reference Range Interpretation Comments PARTIAL THROMBOPLASTIN TIME 48.2 seconds 22.5-36.0 H ([facility]) (test code = 760) POCT-GLUCOSE [id number] 18:20:00 Test Item Value Reference Range Interpretation Comments POC-GLUCOSE METER 48 mg/dL 70-110 L Notified Cassia Chisholm MD/TESTED AT ([facility]) (test code = [address] 1538) [place] [address] POCT-GLUCOSE [id number] 12:35:00 Test Item Value Reference Range Interpretation Comments POC-GLUCOSE METER 117 mg/dL 70-110 H TESTED AT [place] [address] ([facility]) (test code = NURIS Antony [facility] 1538) [address] POCT-GLUCOSE [id number] 11:58:00 Test Item Value Reference Range Interpretation Comments POC-GLUCOSE METER 166 mg/dL 70-110 H TESTED AT [place] [address] ([facility]) (test code = NURIS Antony [facility] 1538) [address] POCT-GLUCOSE [id number] 11:58:00 Test Item Value Reference Range Interpretation Comments POC-GLUCOSE METER 197 mg/dL 70-110 H TESTED AT [place] [address] ([facility]) (test code = NURIS Antony [facility] 1538) [address] BASIC METABOLIC [id number] 10:33:00 Test Item Value Reference Range Interpretation [...] NOT APPLICABLE FOR DIALYSIS PATIEN TS. POCT-GLUCOSE [id number] 09:38:00 Test Item Value Reference Range Interpretation Comments POC-GLUCOSE METER 198 mg/dL 70-110 H TESTED AT [facility] 67 ([facility]) (test code = NURIS Antony [facility] 1538) [address] POCT-GLUCOSE [id number] 08:49:00 Test Item Value Reference Range Interpretation Comments POC-GLUCOSE METER 230 mg/dL 70-110 H TESTED AT [place] [address] ([facility]) (test code = [facility] Cassia [facility] 1538) [address] RAD, CHEST, 1 VIEW, NON [id number] 07:44:00Reason for exam:- >hypoxemiaShould this be performed at the bedside?->YesFINAL REPORT Chest one view compared to August 04 Discussion: There is bilateral pulmonary congestion with probable bilateral atelectasis. No gross effusion or pneumothorax. IMPRESSIONS: No change Signed: Jaida Terrazas Verified Date/Time: 08/05/2017 07:44:47 Reading Location: [facility] Radiology Reading Room CBC W/PLT COUNT & AUTO [id number] 07:22:00 Test Item Value Reference Range Interpretation [...] 1+ few (test code = 478) POCT-GLUCOSE [id number] 06:05:00 Test Item Value Reference Range Interpretation Comments POC-GLUCOSE METER 256 mg/dL 70-110 H TESTED AT [facility] 6720 (BEAKER) (test code = NUR[place] 1538) [address] BASIC METABOLIC [id number] 04:34:00 Test Item Value Reference Range Interpretation [...] S NOT APPLICABLE FOR DIALYSIS PATIEN TS. [id number] 04:33:00 Test Item Value Reference Range Interpretation Comments PHOSPHORUS (BEAKER) (test code = 3.3 mg/dL 2.3-4.7 604) [id number] 04:33:00 Test Item Value Reference Range Interpretation Comments MAGNESIUM (BEAKER) (test code = 2.1 mg/dL 1.6-2.6 627) HEPATIC FUNCTION [id number] 04:33:00 Test Item Value Reference Range Interpretation [...] 6-55 H 347) LACTIC ACID, ARTERIAL, WHOLE [id number] 04:24:00 Test Item Value Reference Range Interpretation Comments LACTATE BLOOD ARTERIAL (2) 1.6 mmol/L 0.5-2.2 (BEAKER) (test code = 2874) Effective 03/21/2016: Units/Reference Range ChangeNew: 0.5-2.2 mmol/L Previous: 5- 20 mg/[id number] 04:23:00 Test Item Value Reference Range Interpretation Comments PARTIAL THROMBOPLASTIN TIME 79.3 seconds 22.5-36.0 H (BEAKER) (test code = 760) OXYGEN SATURATION, [id number] 04:16:00 Test Item Value Reference Range Interpretation Comments O2 SATURATION (MEASURED) (BEAKER) 58.7 % (test code = 1455) Mixed venous from central line.POCT-GLUCOSE [id number] 03:03:00 Test Item Value Reference Range Interpretation Comments POC-GLUCOSE METER 260 mg/dL 70-110 H TESTED AT [facility] 6720 (BEAKER) (test code = NURIS [place] 1538) [address] POCT-GLUCOSE [id number] 00:11:00 Test Item Value Reference Range Interpretation Comments POC-GLUCOSE METER 92 mg/dL 70-110 TESTED AT [place] [address] (BEAKER) (test code = NURIS Antony [facility] [address] 1538) POCT-GLUCOSE [id number] 23:46:00 Test Item Value Reference Range Interpretation Comments POC-GLUCOSE METER 91 mg/dL 70-110 TESTED AT [place] [address] (BEAKER) (test code = NURIS Antony [facility] [address] 1538) POCT-GLUCOSE [id number] 22:52:00 Test Item Value Reference Range Interpretation Comments POC-GLUCOSE METER 124 mg/dL 70-110 H TESTED AT [place] [address] (BEAKER) (test code = NURIS Antony [facility] 1538) [address] [id number] 21:57:00 Test Item Value Reference Range Interpretation Comments POTASSIUM (BEAKER) (test code = 3.5 meq/L 3.5-5.1 379) 8 hours after PO replacement [id number] 21:57:00 Test Item Value Reference Range Interpretation Comments MAGNESIUM (BEAKER) (test code = 2.4 mg/dL 1.6-2.6 627) 8 hours after PO replacement completedPOCT-GLUCOSE [id number] 21:18:00 Test Item Value Reference Range Interpretation Comments POC-GLUCOSE METER 194 mg/dL 70-110 H TESTED AT [place] [address] (BEAKER) (test code = [facility] Cassia [facility] 1538) [address] BASIC METABOLIC [id number] 17:29:00 Test Item Value Reference Range Interpretation [...] 697) EGFR (BEAKER) (test 42 mL/min/1.73 ESTIMA FINA GFR IS code = 1092) sq m NOT ACCURATE CREATININE CLEARANCE IN PREDICTING GLOMERULAR FILTRATION RATE . ESTIMATED GFR I S NOT APPLICABLE FOR DIALYSIS PATIEN RAMYA. [id number] 17:18:00 Test Item Value Reference Range Interpretation Comments PARTIAL THROMBOPLASTIN TIME 73.0 seconds 22.5-36.0 H ([facility]) (test code = 760) POCT-GLUCOSE [id number] 15:11:00 Test Item Value Reference Range Interpretation Comments POC-GLUCOSE METER 194 mg/dL 70-110 H TESTED AT [place] [address] ([facility]) (test code = [facility] [place] 1538) [address] LACTIC ACID, ARTERIAL, WHOLE [id number] 13:23:00 Test Item Value Reference Range Interpretation Comments LACTATE BLOOD ARTERIAL (2) 1.0 mmol/L 0.5-2.2 ([facility]) (test code = 2874) Effective 03/21/2016: Units/Reference Range ChangeNew: 0.5-2.2 mmol/L Previous: 5- 20 mg/dLPOCT-GLUCOSE [id number] 12:41:00 Test Item Value Reference Range Interpretation Comments POC-GLUCOSE METER 236 mg/dL 70-110 H TESTED AT [place] [address] ([facility]) (test code = [facility] [employer] [place] 1538) [address] OXYGEN SATURATION, [id number] 12:31:00 Test Item Value Reference Range Interpretation Comments O2 SATURATION (MEASURED) ([facility]) 55.9 % (test code = 1455) Mixed venous from central line.[id number] 10:03:00 Test Item Value Reference Range Interpretation Comments POTASSIUM ([facility]) (test code = 3.2 meq/L 3.5-5.1 L 379) Check Serum Potassium level 2 hours after oral potassium replacement completed or 30 min after intravenous potassium replacement.POCT-GLUCOSE [id number] 09:23:00 Test Item Value Reference Range Interpretation Comments POC-GLUCOSE METER 150 mg/dL 70-110 H TESTED AT [place] [address] ([facility]) (test code = [facility] [place] 1538) [address] RAD, CHEST, 1 VIEW, NON [id number] 09:18:00Reason for exam:- >hypoxemiaShould this be performed [...] subsegmental atelectasis versus pneumonia. Signed: Cherelle James MDReport Verified Date/Time: 08/04/2017 09:18:42 Reading Location: [facility] C013X Ortho Consult Reading Room [facility] [facility] signed by: CHERELLE JAMES M.D. on 08/04/2017 09:18 [id number] 06:56:00 Test Item Value Reference Range Interpretation Comments PARTIAL THROMBOPLASTIN TIME 76.8 seconds 22.5-36.0 H (BEAKER) (test code = 760) POCT-GLUCOSE [id number] 06:18:00 Test Item Value Reference Range Interpretation Comments POC-GLUCOSE METER 118 mg/dL 70-110 H TESTED AT [facility] 6720 ([facility]) (test code = NURIS Antony [facility] 1538) [address] (MANUAL DIFFERENTIAL)2017-08-04 05:23:00 Test Item Value Reference [...] few 966) CBC W/PLT COUNT & AUTO [id number] 05:22:00 Test Item Value Reference Range Interpretation [...] (BEAKER) (test code = 2801) BASIC METABOLIC [id number] 05:19:00 Test Item Value Reference Range Interpretation [...] NOT APPLICABLE FOR DIALYSIS PATIEN TS. POCT-GLUCOSE [id number] 05:17:00 Test Item Value Reference Range Interpretation Comments POC-GLUCOSE METER 149 mg/dL 70-110 H TESTED AT [facility] 6720 (BEAKER) (test code = NURIS [place] 1538) [address] [id number] 05:11:00 Test Item Value Reference Range Interpretation Comments PHOSPHORUS (BEAKER) (test code = 2.7 mg/dL 2.3-4.7 604) [id number] 05:11:00 Test Item Value Reference Range Interpretation Comments MAGNESIUM (BEAKER) (test code = 1.8 mg/dL 1.6-2.6 627) HEPATIC FUNCTION [id number] 05:11:00 Test Item Value Reference Range Interpretation [...] 613 U/L 5-34 H 353) ALT (SGPT) ([facility]) (test code = 1371 U/L 6-55 H 347) POCT-GLUCOSE [id number] 04:16:00 Test Item Value Reference Range Interpretation Comments POC-GLUCOSE METER 131 mg/dL 70-110 H TESTED AT [place] [address] ([facility]) (test code = [facility] 1538) [address] POCT-GLUCOSE [id number] 04:16:00 Test Item Value Reference Range Interpretation Comments POC-GLUCOSE METER 105 mg/dL 70-110 TESTED AT [place] [address] ([facility]) (test code = [facility] 1538) [address] POCT-GLUCOSE [id number] 02:38:00 Test Item Value Reference Range Interpretation Comments POC-GLUCOSE METER 90 mg/dL 70-110 TESTED AT [place] [address] ([facility]) (test code = [facility] [address] 1538) POCT-GLUCOSE [id number] 00:35:00 Test Item Value Reference Range Interpretation Comments POC-GLUCOSE METER 104 mg/dL 70-110 TESTED AT [place] [address] ([facility]) (test code = [facility] 1538) [address] POCT-GLUCOSE [id number] 23:46:00 Test Item Value Reference Range Interpretation Comments POC-GLUCOSE METER 126 mg/dL 70-110 H TESTED AT [place] [address] ([facility]) (test code = [facility] 1538) [address]447 POCT-GLUCOSE [id number] 21:13:00 Test Item Value Reference Range Interpretation Comments POC-GLUCOSE METER 160 mg/dL 70-110 H TESTED AT [place] [address] ([facility]) (test code = NURIS Antony [place] 1538) [address] [id number] 20:24:00 Test Item Value Reference Range Interpretation Comments PARTIAL THROMBOPLASTIN TIME 54.0 seconds 22.5-36.0 H ([facility]) (test code = 760) POCT-GLUCOSE [id number] 20:12:00 Test Item Value Reference Range Interpretation Comments POC-GLUCOSE METER 172 mg/dL 70-110 H TESTED AT [place] [address] ([facility]) (test code = NURIS Antony [place] 1538) [address] POCT-GLUCOSE [id number] 15:16:00 Test Item Value Reference Range Interpretation Comments POC-GLUCOSE METER 102 mg/dL 70-110 TESTED AT [place] [address] ([facility]) (test code = NURIS Antony [place] 1538) [address] [id number] 12:48:00 Test Item Value Reference Range Interpretation Comments PARTIAL THROMBOPLASTIN TIME 46.2 seconds 22.5-36.0 H ([facility]) (test code = 760) POCT-GLUCOSE [id number] 11:37:00 Test Item Value Reference Range Interpretation Comments POC-GLUCOSE METER 109 mg/dL 70-110 TESTED AT [place] [address] ([facility]) (test code = NURIS Antony [facility] 1538) [address] U/S, ABDOMINAL, [id number] 09:59:00Abdomen limited area? Add comment if clarification [...] sonographic evidence of acute cholecystitis. Signed: Chele [facility] Verified Date/Time: 08/03/2017 09:59:59 Reading Location: [facility] C013Y CT Body Reading Room RAD, CHEST, 1 VIEW, NON [id number] 08:05:00Reason for exam:- >hypoxemiaShould this be performed [...] MDReport Verified Date/Time: 08/03/2017 08:05:10 Reading Location: [facility] C013V Neuro Reading Room CBC W/PLT COUNT & AUTO [id number] 06:41:00 Test Item Value Reference Range Interpretation [...] (test code Normal = 486) RBC MORPHOLOGY ([facility]) (test code Normal = 762) POCT-GLUCOSE [id number] 06:13:00 Test Item Value Reference Range Interpretation Comments POC-GLUCOSE METER 133 mg/dL 70-110 H TESTED AT [place] [address] ([facility]) (test code = [facility] 1538) [address] POCT-GLUCOSE [id number] 06:13:00 Test Item Value Reference Range Interpretation Comments POC-GLUCOSE METER 143 mg/dL 70-110 H TESTED AT [place] [address] ([facility]) (test code = [facility] 1538) [address] POCT-GLUCOSE [id number] 06:13:00 Test Item Value Reference Range Interpretation Comments POC-GLUCOSE METER 136 mg/dL 70-110 H TESTED AT [place] [address] ([facility]) (test code = [facility] 1538) [address] [id number] 05:47:00 Test Item Value Reference Range Interpretation Comments PARTIAL THROMBOPLASTIN TIME 37.5 seconds 22.5-36.0 H (AKER) (test code = 760) [id number] 05:37:00 Test Item Value Reference Range Interpretation Comments PHOSPHORUS (BEAKER) (test code = 1.8 mg/dL 2.3-4.7 L 604) [id number] 05:37:00 Test Item Value Reference Range Interpretation Comments MAGNESIUM (BEAKER) (test code = 2.1 mg/dL 1.6-2.6 627) BASIC METABOLIC [id number] 05:37:00 Test Item Value Reference Range Interpretation [...] APPLICABLE FOR DIALYSIS PATIEN TS. HEPATIC FUNCTION [id number] 05:37:00 Test Item Value Reference Range Interpretation [...] 29-200 H code = 380) OXYGEN SATURATION, [id number] 05:34:00 Test Item Value Reference Range Interpretation Comments O2 SATURATION (MEASURED) ([facility]) 51.5 % (test code = 1455) POCT-GLUCOSE [id number] 01:44:00 Test Item Value Reference Range Interpretation Comments POC-GLUCOSE METER 101 mg/dL 70-110 TESTED AT [place] [address] ([facility]) (test code = [facility] 1538) 27009 POCT-GLUCOSE [id number] 01:44:00 Test Item Value Reference Range Interpretation Comments POC-GLUCOSE METER 82 mg/dL 70-110 TESTED AT [place] [address] ([facility]) (test code = [facility] [address] 1538) POCT-GLUCOSE [id number] 01:44:00 Test Item Value Reference Range Interpretation Comments POC-GLUCOSE METER 111 mg/dL 70-110 H TESTED AT [place] [address] ([facility]) (test code = [facility] 1538) 0[address] POCT-GLUCOSE [id number] 01:44:00 Test Item Value Reference Range Interpretation Comments POC-GLUCOSE METER 129 mg/dL 70-110 H TESTED AT [place] [address] ([facility]) (test code = [facility] 1538) [address] [id number] 23:10:00 Test Item Value Reference Range Interpretation Comments PARTIAL THROMBOPLASTIN TIME 32.3 seconds 22.5-36.0 ([facility]) (test code = 760) POCT-GLUCOSE [id number] 22:53:00 Test Item Value Reference Range Interpretation Comments POC-GLUCOSE METER 152 mg/dL 70-110 H TESTED AT [place] [address] ([facility]) (test code = [facility] 1538) [address] OXYGEN SATURATION, [id number] 22:00:00 Test Item Value Reference Range Interpretation Comments O2 SATURATION (MEASURED) (AKER) 48.0 % (test code = 1455) BASIC METABOLIC [id number] 20:43:00 Test Item Value Reference Range Interpretation [...] S NOT APPLICABLE FOR DIALYSIS PATIEN TS. [id number] 20:38:00 Test Item Value Reference Range Interpretation Comments [facility]UM [facility] (test code = 2.0 mg/dL 1.6-2.6 627) POCT-GLUCOSE [id number] 20:10:00 Test Item Value Reference Range Interpretation Comments POC-GLUCOSE METER 159 mg/dL 70-110 H TESTED AT [place] [address] ([facility]) (test code = [facility] 1538) [address] POCT-GLUCOSE [id number] 18:58:00 Test Item Value Reference Range Interpretation Comments POC-GLUCOSE METER 173 mg/dL 70-110 H TESTED AT [place] [address] ([facility]) (test code = [facility] 1538) 16447 [id number] 17:45:00 Test Item Value Reference Range Interpretation Comments PARTIAL THROMBOPLASTIN TIME 30.1 seconds 22.5-36.0 ([facility]) (test code = 760) POCT-GLUCOSE [id number] 17:24:00 Test Item Value Reference Range Interpretation Comments POC-GLUCOSE METER 174 mg/dL 70-110 H TESTED AT [place] [address] ([facility]) (test code = [facility] [place] 1538) [address] CREATINE KINASE (CK)2017-08-02 16:08:00 Test Item Value Reference Range Interpretation Comments CREATINE KINASE TOTAL ([facility]) (test 1799 U/L 29-200 H code = 380) POCT-GLUCOSE [id number] 15:44:00 Test Item Value Reference Range Interpretation Comments POC-GLUCOSE METER 174 mg/dL 70-110 H TEST[facility] AT [place] [address] [facility] ([facility] = [facility] 1538) [address] OXYGEN SATURATION, [id number] 15:44:00 Test Item Value Reference Range Interpretation Comments O2 SATURATION (MEASURED) (BEAKER) 50.2 % (test code = 1455) BLOOD GAS, [id number] 15:40:00 Test Item Value Reference Range Interpretation [...] (test code = 1819) 100.0 % POCT-GLUCOSE [id number] 14:08:00 Test Item Value Reference Range Interpretation Comments POC-GLUCOSE METER 141 mg/dL 70-110 H TESTED AT [place] [address] ([facility] (test code = [facility] 1538) [address]405 POCT-GLUCOSE [id number] 13:22:00 Test Item Value Reference Range Interpretation Comments POC-GLUCOSE METER 97 mg/dL 70-110 TESTED AT [place] [address] ([facility]) (test code = [facility] [address] 1538) HEPATIC FUNCTION [id number] 12:02:00 Test Item Value Reference Range Interpretation Comments TOTAL PROTEIN (BEAKER) (test code = 5.7 gm/dL 6.0-8.3 L 770) ALBUMIN (BEAKER) (test code = 1145) 2.8 g/dL 3.5-5.0 L BILIRUBIN TOTAL (BEAKER) (test code 1.0 mg/dL 0.2-1.2 = 377) BILIRUBIN DIRECT (BEAKER) (test 0.6 mg/dL 0.1-0.5 H code = 706) ALKALINE PHOSPHATASE (AKER) (test 69 U/L 40-150 code = 346) AST (SGOT) (BEAKER) (test code = 812 U/L 5-34 H 353) ALT (SGPT) (AKER) (test code = 1604 U/L 6-55 H 347) [id number] 11:11:00 Test Item Value Reference Range Interpretation Comments PARTIAL THROMBOPLASTIN TIME 28.6 seconds 22.5-36.0 (AKER) (test code = 760) 6 hours after starting heparin infusion and as indicated per sliding scalePOCT- GLUCOSE [id number] 10:59:00 Test Item Value Reference Range Interpretation Comments POC-GLUCOSE METER 105 mg/dL 70-110 TESTED AT [facility] 6720 ([facility]) (test code = NUR[place] 1538) [address] BLOOD GAS, [id number] 10:58:00 Test Item Value Reference Range Interpretation Comments PH ARTERIAL (AKER) (test code = 7.49 7.35-7.45 H 383) PCO2 ARTERIAL (AKER) (test code 36 mmHg 35-45 = 384) PO2 ARTERIAL (AKER) (test code = 153 mmHg 80-90 H 385) O2 SATURATION ARTERIAL (AKER) 99.1 % 96.0-97.0 H (test code = 386) HCO3 ARTERIAL (AKER) (test code 26 mmol/L 21-29 = 388) BASE EXCESS ARTERIAL (AKER) 3.0 mmol/L -2.0-3.0 (test code = 387) PATIENT TEMPERATURE (AKER) (test 37.0 C code = 1818) FIO2 ([facility]) (test code = 1819) 100.0 % LACTIC ACID, ARTERIAL, WHOLE [id number] 10:28:00 Test Item Value Reference Range Interpretation Comments LACTATE BLOOD ARTERIAL (2) 1.1 mmol/L 0.5-2.2 (AKER) (test code = 2874) Effective 03/21/2016: Units/Reference Range ChangeNew: 0.5-2.2 mmol/L Previous: 5- 20 mg/dLPOCT-GLUCOSE [id number] 08:55:00 Test Item Value Reference Range Interpretation Comments POC-GLUCOSE METER 111 mg/dL 70-110 H TESTED AT [facility] 6720 (BEAKER) (test code = NURIS Antony [place] 1538) [address] HEMOGLOBIN AND [id number] 08:53:00 Test Item Value Reference Range Interpretation Comments HEMOGLOBIN (BEAKER) (test code = 9.1 GM/DL 13.7-17.5 L 410) HEMATOCRIT (BEAKER) (test code = 26.7 % 40.1-51.0 L 411) POCT-GLUCOSE [id number] 06:28:00 Test Item Value Reference Range Interpretation Comments POC-GLUCOSE METER 122 mg/dL 70-110 H TESTED AT [facility] 6720 ([facility] (test code = [facility] 1538) [address] OXYGEN SATURATION, [id number] 06:07:00 Test Item Value Reference Range Interpretation Comments O2 SATURATION (MEASURED) (AKER) 61.5 % (test code = 1455) CBC W/PLT COUNT & AUTO [id number] 06:04:00 Test Item Value Reference Range Interpretation [...] PERCENT (BEAKER) (test code = 2801) POCT-GLUCOSE [id number] 05:47:00 Test Item Value Reference Range Interpretation Comments POC-GLUCOSE METER 121 mg/dL 70-110 H TESTED AT [facility] 6720 (BEAKER) (test code = NURIS Anton[place] 1538) [address] RAD, CHEST, 1 VIEW, NON [id number] 05:45:00Reason for exam:->s/p ACBShould this be performed at the bedside?->YesFINAL REPORT RAD, CHEST, 1 VIEW, NON DEPT INDICATION: s/p ACB COMPARISON: Priorday's exam TECHNIQUE: Portable frontal view of the chest. IMPRESSION: Interval removal of all chest tubes. Stable right IJ line. Worsening interstitial edema.Cardiomediastinal silhouette stable.Streakyopacities in the mid right lung and left lung base likely reflecting atelectasis.No acute osseous abnormality. Signed: May Moore MDReport Verified Date/Time: 08/02/2017 05:45:27 Reading Location:[address] Ortho Consult Reading Room RAD, ABDOMEN/KUB, 1 VIEW [id number] 05:44:00Reason for exam:->DistentionFINAL REPORT RAD, ABDOMEN/KUB, 1 [...] MDReport Verified Date/Time: 08/02/2017 05:44:54 Reading Location: [facility] C013X Ortho Consult Reading Room [id number] 05:31:00 Test Item Value Reference Range Interpretation Comments POTASSIUM (BEAKER) (test code = 4.5 meq/L 3.5-5.1 379) [id number] 05:31:00 Test Item Value Reference Range Interpretation Comments PHOSPHORUS (BEAKER) (test code = 2.4 mg/dL 2.3-4.7 604) BASIC METABOLIC [id number] 05:31:00 Test Item Value Reference Range Interpretation [...] NOT APPLICABLE FOR DIALYSIS PATIEN TS. POCT-GLUCOSE [id number] 04:47:00 Test Item Value Reference Range Interpretation Comments POC-GLUCOSE METER 124 mg/dL 70-110 H TESTED AT [place] [address] ([facility]) (test code = [facility] 1538) [address] POCT-GLUCOSE [id number] 03:44:00 Test Item Value Reference Range Interpretation Comments POC-GLUCOSE METER 123 mg/dL 70-110 H TESTED AT [place] [address] ([facility]) (test code = [facility] 1538) 6[address] POCT-GLUCOSE [id number] 03:06:00 Test Item Value Reference Range Interpretation Comments POC-GLUCOSE METER 91 mg/dL 70-110 TESTED AT [place] [address] ([facility]) (test code = [facility] [address] 1538) [id number] 02:16:00 Test Item Value Reference Range Interpretation Comments MAGNESIUM (BEAKER) (test code = 2.0 mg/dL 1.6-2.6 627) POCT-GLUCOSE [id number] 02:07:00 Test Item Value Reference Range Interpretation Comments POC-GLUCOSE METER 111 mg/dL 70-110 H TESTED AT [place] [address] ([facility]) (test code = [facility] 1538) [address] POCT-GLUCOSE [id number] 01:16:00 Test Item Value Reference Range Interpretation Comments POC-GLUCOSE METER 123 mg/dL 70-110 H TESTED AT [place] [address] ([facility]) (test code = [facility] 1538) [address] [id number] 01:03:00 Test Item Value Reference Range Interpretation Comments POTASSIUM (BEAKER) (test code = 4.4 meq/L 3.5-5.1 379) HEMOGLOBIN AND [id number] 00:57:00 Test Item Value Reference Range Interpretation Comments HEMOGLOBIN (BEAKER) (test code = 8.8 GM/DL 13.7-17.5 L 410) HEMATOCRIT (BEAKER) (test code = 25.9 % 40.1-51.0 L 411) POCT-GLUCOSE [id number] 00:31:00 Test Item Value Reference Range Interpretation Comments POC-GLUCOSE METER 141 mg/dL 70-110 H TESTED AT [place] [address] ([facility] (test code = NURIS Antony [place] 1538) [address] POCT-GLUCOSE [id number] 23:05:00 Test Item Value Reference Range Interpretation Comments POC-GLUCOSE METER 149 mg/dL 70-110 H TESTED AT [place] [address] (BEAKER) (test code = NURIS Anton[place] 1538) [address] POCT-GLUCOSE [id number] 22:04:00 Test Item Value Reference Range Interpretation Comments POC-GLUCOSE METER 161 mg/dL 70-110 H TESTED AT [place] [address] (BEAKER) (test code = NURIS Anton[place] 1538) [address] [id number] 21:39:00 Test Item Value Reference Range Interpretation Comments POTASSIUM (BEAKER) (test code = 4.7 meq/L 3.5-5.1 379) HEMOGLOBIN AND [id number] 21:16:00 Test Item Value Reference Range Interpretation Comments HEMOGLOBIN (BEAKER) (test code = 8.4 GM/DL 13.7-17.5 L 410) HEMATOCRIT (BEAKER) (test code = 25.2 % 40.1-51.0 L 411) POCT-GLUCOSE [id number] 20:46:00 Test Item Value Reference Range Interpretation Comments POC-GLUCOSE METER 169 mg/dL 70-110 H TESTED AT [place] [address] (BEAKER) (test code = NURIS Anton[place] 1538) [address] POCT-GLUCOSE [id number] 19:40:00 Test Item Value Reference Range Interpretation Comments POC-GLUCOSE METER 201 mg/dL 70-110 H TESTED AT [place] [address] (BEAKER) (test code = NURIS Antony [place] 1538) [address] POCT-GLUCOSE [id number] 18:51:00 Test Item Value Reference Range Interpretation Comments POC-GLUCOSE METER 228 mg/dL 70-110 H TESTED AT [place] [address] (BEAKER) (test code = [facility] Anton[place] 1538) [address] BASIC METABOLIC [id number] 18:02:00 Test Item Value Reference Range Interpretation [...] APPLICABLE FOR DIALYSIS PATIEN TS. OXYGEN SATURATION, [id number] 17:07:00 Test Item Value Reference Range Interpretation Comments O2 SATURATION (MEASURED) (BEAKER) 60.3 % (test code = 1455) U/S, RENAL WITH [id number] 16:36:00Reason for exam:->akiFINAL REPORT TECHNIQUE: Grayscale, color [...] MDReport Verified Date/Time: 08/01/2017 16:36:54 Reading Location: [facility] B1 [id number] Ultrasound Reading Room POCT-GLUCOSE [id number] 15:22:00 Test Item Value Reference Range Interpretation Comments POC-GLUCOSE METER 325 mg/dL 70-110 H TESTED AT [place] [address] ([facility]) (test code = NURIS Antony [facility] 1538) [address] RAD, CHEST, 1 VIEW, NON [id number] 13:30:00Reason for exam:->chest tubes FINAL REPORT TECHNIQUE: [...] MDReport Verified Date/Time: 08/01/2017 13:30:25 Reading Location: [facility] Radiology ReadingRoom POCT-GLUCOSE METER 2017-08-01 13:21:00 Test Item Value Reference Range Interpretation Comments POC-GLUCOSE METER 295 mg/dL 70-110 H TESTED AT [place] [address] ([facility]) (test code = NURIS Antony [facility] 1538) [address] [id number] 13:15:00 Test Item Value Reference Range Interpretation Comments POTASSIUM (BEAKER) (test code = 5.2 meq/L 3.5-5.1 H 379) POCT-GLUCOSE [id number] 11:05:00 Test Item Value Reference Range Interpretation Comments POC-GLUCOSE METER 311 mg/dL 70-110 H TESTED AT [place] [address] ([facility]) (test code = NURIS Antony [facility] 1538) [address] [id number] 10:54:00 Test Item Value Reference Range Interpretation Comments POTASSIUM (BEAKER) (test code = 5.7 meq/L 3.5-5.1 H 379) LACTIC ACID, ARTERIAL, WHOLE [id number] 10:49:00 Test Item Value Reference Range Interpretation Comments LACTATE BLOOD ARTERIAL (2) 2.6 mmol/L 0.5-2.2 H (BEAKER) (test code = 2874) Effective 03/21/2016: Units/Reference Range ChangeNew: 0.5-2.2 mmol/L Previous: 5- 20 mg/dLOXYGEN SATURATION, [id number] 10:39:00 Test Item Value Reference Range Interpretation Comments O2 SATURATION (MEASURED) (BEAKER) 30.8 % (test code = 1455) POCT-GLUCOSE [id number] 10:16:00 Test Item Value Reference Range Interpretation Comments POC-GLUCOSE METER 364 mg/dL 70-110 H Notified R Kathrine MD/TESTED (BEAKER) (test code = AT [facility] [address] [place] [address]) [facility] 7703 0 POCT-GLUCOSE [id number] 09:02:00 Test Item Value Reference Range Interpretation Comments POC-GLUCOSE METER 321 mg/dL 70-110 H Notified R N MD/TESTED (BEAKER) (test code = AT [facility] [address] [place], [place] [address]) [facility] 7703 0 HEMOGLOBIN AND [id number] 08:23:00 Test Item Value Reference Range Interpretation Comments HEMOGLOBIN (BEAKER) (test code = 8.0 GM/DL 13.7-17.5 L 410) HEMATOCRIT (BEAKER) (test code = 23.5 % 40.1-51.0 L 411) [id number] 08:20:00 Test Item Value Reference Range Interpretation Comments POTASSIUM (BEAKER) (test code = 6.0 meq/L 3.5-5.1 HH 379) [id number] 07:31:00 Test Item Value Reference Range Interpretation Comments GLUCOSE RANDOM (BEAKER) (test code 345 mg/dL 70-105 H = 652) POCT-GLUCOSE [id number] 06:50:00 Test Item Value Reference Range Interpretation Comments POC-GLUCOSE METER 373 mg/dL 70-110 H TESTED AT [facility] 6720 (BEAKER) (test code = NURIS Antony [place] [address]) [address] POCT-GLUCOSE [id number] 06:39:00 Test Item Value Reference Range Interpretation Comments POC-GLUCOSE METER 371 mg/dL 70-110 H TESTED AT [facility] 6720 (BEAKER) (test code = NURIS BYRNES 1538) [address] [id number] 04:16:00 Test Item Value Reference Range Interpretation Comments PHOSPHORUS (BEAKER) (test code = 2.7 mg/dL 2.3-4.7 604) [id number] 04:16:00 Test Item Value Reference Range Interpretation Comments MAGNESIUM (BEAKER) (test code = 2.2 mg/dL 1.6-2.6 627) BASIC METABOLIC [id number] 04:16:00 Test Item Value Reference Range Interpretation [...] PATIEN TS. CBC W/PLT COUNT & AUTO [id number] 04:04:00 Test Item Value Reference Range Interpretation [...] PERCENT (BEAKER) (test code = 2801) POCT-GLUCOSE [id number] 01:54:00 Test Item Value Reference Range Interpretation Comments POC-GLUCOSE METER 403 mg/dL 70-110 Notified R N MD/TESTED (BEAKER) (test code = AT [facility] [address] [facility] 1353) [place] [address] 0 HEMOGLOBIN AND [id number] 01:47:00 Test Item Value Reference Range Interpretation Comments HEMOGLOBIN (BEAKER) (test code = 8.7 GM/DL 13.7-17.5 L 410) HEMATOCRIT (BEAKER) (test code = 25.8 % 40.1-51.0 L 411) BASIC METABOLIC [id number] 23:56:00 Test Item Value Reference Range Interpretation [...] NOT APPLICABLE FOR DIALYSIS PATIEN TS. POCT-GLUCOSE [id number] 23:10:00 Test Item Value Reference Range Interpretation Comments POC-GLUCOSE METER 344 mg/dL 70-110 H Notified R Kathrine GATES/TESTED (BEAKER) (test code = AT [facility] [address] [facility] 5070) [place] [id number] 0 BLOOD GAS, [id number] 23:04:00 Test Item Value Reference Range Interpretation [...] (test 37.0 code = 1818) OXYGEN SATURATION, [id number] 23:01:00 Test Item Value Reference Range Interpretation Comments O2 SATURATION (MEASURED) (BEAKER) 47.5 % (test code = 1455) [id number] 19:02:00 Test Item Value Reference Range Interpretation Comments POTASSIUM (BEAKER) (test code = 6.0 meq/L 3.5-5.1 HH 379) BASIC METABOLIC [id number] 17:34:00 Test Item Value Reference Range Interpretation [...] APPLICABLE FOR DIALYSIS PATIEN TS. HEMOGLOBIN AND [id number] 17:20:00 Test Item Value Reference Range Interpretation Comments HEMOGLOBIN (BEAKER) (test code = 8.6 GM/DL 13.7-17.5 L 410) HEMATOCRIT (BEAKER) (test code = 26.3 % 40.1-51.0 L 411) POCT-GLUCOSE [id number] 09:52:00 Test Item Value Reference Range Interpretation Comments POC-GLUCOSE METER 138 mg/dL 70-110 H TESTED AT [facility] 6720 (BEAKER) (test code = NURIS [place] 1538) [address] HEMOGLOBIN AND [id number] 08:27:00 Test Item Value Reference Range Interpretation Comments HEMOGLOBIN (BEAKER) (test code = 8.8 GM/DL 13.7-17.5 L 410) HEMATOCRIT (BEAKER) (test code = 26.2 % 40.1-51.0 L 411) RAD, CHEST, 1 VIEW, NON [id number] 08:22:00Reason for exam:->pl effusionShould this be performed [...] MDReport Verified Date/Time: 07/31/2017 08:22:41 Reading Location: [facility] Diagnostic Imaging Reading Room - [place] [address] -GLUCOSE [id number] 08:03:00 Test Item Value Reference Range Interpretation Comments POC-GLUCOSE METER 104 mg/dL 70-110 TESTED AT [place] [address] ([facility]) (test code = NURIS Cassia [facility] 1538) [address] POCT-GLUCOSE [id number] 07:20:00 Test Item Value Reference Range Interpretation Comments POC-GLUCOSE METER 106 mg/dL 70-110 TESTED AT [place] [address] ([facility]) (test code = NURIS Cassia [facility] 1538) [address] POCT-GLUCOSE [id number] 07:20:00 Test Item Value Reference Range Interpretation Comments POC-GLUCOSE METER 100 mg/dL 70-110 TESTED AT [place] [address] ([facility]) (test code = NURIS Antony [facility] 1538) [address] POCT-GLUCOSE [id number] 07:20:00 Test Item Value Reference Range Interpretation Comments POC-GLUCOSE METER 111 mg/dL 70-110 H TESTED AT [facility] 6720 (BEAKER) (test code = NURIS Antony [place] 1538) [address] POCT-GLUCOSE [id number] 04:40:00 Test Item Value Reference Range Interpretation Comments POC-GLUCOSE METER 169 mg/dL 70-110 H TESTED AT [facility] 6720 (BEAKER) (test code = NURIS Antony [place] 1538) [address] POCT-GLUCOSE [id number] 04:40:00 Test Item Value Reference Range Interpretation Comments POC-GLUCOSE METER 180 mg/dL 70-110 H TESTED AT [facility] 6720 (BEAKER) (test code = NURIS Antony [place] 1538) [address] CBC W/PLT COUNT & AUTO [id number] 04:07:00 Test Item Value Reference Range Interpretation Comments WHITE BLOOD CELL COUNT (BEAKER) 12.1 K/ L 3.5-10.5 H (test code = 775) RED BLOOD CELL COUNT (BEAKER) 3.03 M/ L 4.63-6.08 L (test code = 761) HEMOGLOBIN (BEAKER) (test code = 9.2 GM/DL 13.7-17.5 L 410) HEMATOCRIT (BEAKER) (test code = 27.5 % 40.1-51.0 L [...] 0-1 PERCENT (BEAKER) (test code = 2801) [id number] 03:47:00 Test Item Value Reference Range Interpretation Comments MAGNESIUM (BEAKER) (test code = 2.5 mg/dL 1.6-2.6 627) BASIC METABOLIC [id number] 03:47:00 Test Item Value Reference Range Interpretation [...] DIALYSIS PATIEN TS. LACTIC ACID, ARTERIAL, WHOLE [id number] 03:44:00 Test Item Value Reference Range Interpretation Comments LACTATE BLOOD ARTERIAL (2) 1.5 mmol/L 0.5-2.2 ([facility]) (test code = 2874) Effective 03/21/2016: Units/Reference Range ChangeNew: 0.5-2.2 mmol/L Previous: 5- 20 mg/dLCALCIUM, [id number] 03:19:00 Test Item Value Reference Range Interpretation Comments CALCIUM IONIZED ([facility]) (test 1.14 mmol/L 1.12-1.27 code = 698) PH, BLOOD ([facility]) (test code = 7.36 1810) OXYGEN SATURATION, [id number] 03:19:00 Test Item Value Reference Range Interpretation Comments O2 SATURATION (MEASURED) ([facility]) 66.3 % (test code = 1455) POCT-GLUCOSE [id number] 01:29:00 Test Item Value Reference Range Interpretation Comments POC-GLUCOSE METER 145 mg/dL 70-110 H TESTED AT [place] [address] ([facility]) ([facility] 1538) [address] POCT-GLUCOSE [id number] 01:29:00 Test Item Value Reference Range Interpretation Comments POC-GLUCOSE METER 152 mg/dL 70-110 H TESTED AT [place] [address] ([facility]) (test code = [facility] 1538) [address] HEMOGLOBIN AND [id number] 00:12:00 Test Item Value Reference Range Interpretation Comments HEMOGLOBIN ([facility]) (test code = 9.4 GM/DL 13.7-17.5 L 410) HEMATOCRIT ([facility]) (test code = 27.2 % 40.1-51.0 L 411) POCT-GLUCOSE [id number] 23:59:00 Test Item Value Reference Range Interpretation Comments POC-GLUCOSE METER 178 mg/dL 70-110 H TESTED AT [place] [address] ([facility]) (test code = [facility] 1538) [address] [id number] 21:41:00 Test Item Value Reference Range Interpretation Comments POTASSIUM ([facility]) (test code = 4.7 meq/L 3.5-5.1 379) Check Serum Potassium level 2 hours after oral potassium replacement completed or 30 min after intravenous potassium replacement.[id number] 21:41:00 Test Item Value Reference Range Interpretation Comments MAGNESIUM ([facility]) (test code = 2.1 mg/dL 1.6-2.6 627) Check Serum Potassium level 2 hours after oral potassium replacement completed or 30 min after intravenous potassium replacement.POCT-GLUCOSE [id number] 21:00:00 Test Item Value Reference Range Interpretation Comments POC-GLUCOSE METER 187 mg/dL 70-110 H TESTED AT [place] [address] ([facility]) (test code = GILBRIANNA Antony [facility] 1538) [address] POCT-GLUCOSE [id number] 21:00:00 Test Item Value Reference Range Interpretation Comments POC-GLUCOSE METER 178 mg/dL 70-110 H TESTED AT [place] [address] ([facility]) (test code = GILBRIANNA Antony [facility] 1538) [address] POCT-GLUCOSE [id number] 18:42:00 Test Item Value Reference Range Interpretation Comments POC-GLUCOSE METER 221 mg/dL 70-110 H TESTED AT [place] [address] ([facility]) (test code = GILBRIANNA Antony [facility] 1538) [address] POCT-GLUCOSE [id number] 18:41:00 Test Item Value Reference Range Interpretation Comments POC-GLUCOSE METER 244 mg/dL 70-110 H TESTED AT [place] [address] ([facility]) (test code = GILBRIANNA Antony [place] 1538) [address] POCT-GLUCOSE [id number] 18:41:00 Test Item Value Reference Range Interpretation Comments POC-GLUCOSE METER 269 mg/dL 70-110 H TESTED AT [place] [address] ([facility]) (test code = NURIS Antony [facility] 1538) [address] POCT-GLUCOSE [id number] 18:41:00 Test Item Value Reference Range Interpretation Comments POC-GLUCOSE METER 306 mg/dL 70-110 H TESTED AT [place] [address] ([facility]) (test code = NURIS Antony [place] 1538) [address] POTASSIUM-STAT [id number] 18:32:00 Test Item Value Reference Range Interpretation Comments POTASSIUM ([facility]) (test code = 3.9 meq/L 3.6-5.5 379) BLOOD GAS, [id number] 18:32:00 Test Item Value Reference Range Interpretation Comments PH ARTERIAL ([facility]) (test code = 7.37 7.35-7.45 383) PCO2 [...] code = 1819) 60.0 % SODIUM NA-STAT [id number] 18:32:00 Test Item Value Reference Range Interpretation Comments SODIUM (BEAKER) (test code = 381) 134 meq/L 135-148 L GLUCOSE-STAT [id number] 18:32:00 Test Item Value Reference Range Interpretation Comments GLUCOSE RANDOM (BEAKER) (test code 190 mg/dL 70-110 H = 652) HGB/HCT (H&H) - STAT [id number] 18:32:00 Test Item Value Reference Range Interpretation Comments HEMOGLOBIN (BEAKER) (test code = 10.5 g/dL 13.0-16.8 L 410) HEMATOCRIT (BEAKER) (test code = 31.0 % 40.0-50.0 L 411) CALCIUM, [id number] 18:32:00 Test Item Value Reference Range Interpretation Comments CALCIUM IONIZED (BEAKER) (test 1.16 mmol/L 1.12-1.27 code = 698) PH, BLOOD (BEAKER) (test code = 7.38 1810) [id number] 16:39:00 Test Item Value Reference Range Interpretation Comments MAGNESIUM (BEAKER) (test code = 1.9 mg/dL 1.6-2.6 627) GLUCOSE-STAT [id number] 16:24:00 Test Item Value Reference Range Interpretation Comments GLUCOSE RANDOM (BEAKER) (test code 252 mg/dL 70-110 H = 652) BLOOD GAS, [id number] 16:24:00 Test Item Value Reference Range Interpretation [...] (test code = 1819) 40.0 % CALCIUM, [id number] 16:24:00 Test Item Value Reference Range Interpretation Comments CALCIUM IONIZED (BEAKER) (test 1.06 mmol/L 1.12-1.27 L code = 698) PH, BLOOD (BEAKER) (test code = 7.39 1810) POTASSIUM-STAT [id number] 16:22:00 Test Item Value Reference Range Interpretation Comments POTASSIUM (BEAKER) (test code = 3.6 meq/L 3.6-5.5 379) RAD, CHEST, 1 VIEW, NON [id number] 14:41:00Reason for exam:->post opShould this be performed [...] Rubalcavaeport Verified Date/Time: 07/30/2017 14:41:41 Reading Location: [facility] Radiology Reading Room CBC (HEMOGRAM ONLY)2017-07-30 13:32:00 [...] WBC 0-0 (BEAKER) (test code = 413) [id number] 13:04:00 Test Item Value Reference Range Interpretation Comments MAGNESIUM (BEAKER) 2.1 mg/dL 1.6-2.6 Specimen slightly (test code = 627) hemolyzed [id number] 13:04:00 Test Item Value Reference Range Interpretation Comments PHOSPHORUS (BEAKER) 2.5 mg/dL 2.3-4.7 Specimen slightly (test code = 604) hemolyzed BASIC METABOLIC [id number] 13:03:00 Test Item Value Reference Range Interpretation [...] DIALYSIS PATIEN TS. LACTIC ACID, ARTERIAL, WHOLE [id number] 12:57:00 Test Item Value Reference Range Interpretation Comments LACTATE BLOOD 1.8 mmol/L 0.5-2.2 Specimen sligh tly ARTERIAL (2) (BEAKER) hemoly zed (test code = 2874) Effective 03/21/2016: Units/Reference Range ChangeNew: 0.5-2.2 mmol/L Previous: 5- 20 mg/dLCALCIUM, [id number] 12:44:00 Test Item Value Reference Range Interpretation Comments CALCIUM IONIZED (BEAKER) (test 1.12 mmol/L 1.12-1.27 code = 698) PH, BLOOD (BEAKER) (test code = 7.45 1810) GLUCOSE-STAT [id number] 12:44:00 Test Item Value Reference Range Interpretation Comments GLUCOSE RANDOM (BEAKER) (test code 253 mg/dL 70-110 H = 652) HGB/HCT (H&H) - STAT [id number] 12:44:00 Test Item Value Reference Range Interpretation Comments HEMOGLOBIN (BEAKER) (test code = 11.9 g/dL 13.0-16.8 L 410) HEMATOCRIT (BEAKER) (test code = 35.0 % 40.0-50.0 L 411) SODIUM NA-STAT [id number] 12:44:00 Test Item Value Reference Range Interpretation Comments SODIUM (BEAKER) (test code = 381) 131 meq/L 135-148 L POTASSIUM-STAT [id number] 12:44:00 Test Item Value Reference Range Interpretation Comments POTASSIUM (BEAKER) (test code = 4.4 meq/L 3.6-5.5 379) BLOOD GAS, [id number] 12:44:00 Test Item Value Reference Range Interpretation [...] code = 1819) 60.0 % OXYGEN SATURATION, [id number] 12:44:00 Test Item Value Reference Range Interpretation Comments O2 SATURATION (MEASURED) (BEAKER) 55.1 % (test code = 1455) [id number] 12:11:00 Test Item Value Reference Range Interpretation Comments ACTIVATED CLOTTING TIME 555 sec TEST ED AT [place] [address] ([facility]) (test code = GILBRIANNA [place] [address]) [address] [id number] 12:11:00 Test Item Value Reference Range Interpretation Comments ACTIVATED CLOTTING TIME 466 sec TEST ED AT [place] [address] ([facility]) (test code = NURIS [place] 441) [address] [id number] 12:11:00 Test Item Value Reference Range Interpretation Comments ACTIVATED CLOTTING TIME 549 sec TEST ED AT [place] [address] ([facility]) (test code = NURIS [place] 441) [address] [id number] 12:11:00 Test Item Value Reference Range Interpretation Comments ACTIVATED CLOTTING TIME 428 sec TEST ED AT [place] [address] ([facility]) (test code = NURIS [place] 441) [address] [id number] 12:11:00 Test Item Value Reference Range Interpretation Comments ACTIVATED CLOTTING TIME 423 sec TEST ED AT [facility] 6720 (BEAKER) (test code = NURIS [place] [address]) [address] THROMBOELASTOGRAPH (TEG)2017-07-30 11:42:00 Test Item Value Reference [...] 55.0-65.0 H (test code = 1413) PLATELET [id number] 11:13:00 Test Item Value Reference Range Interpretation Comments PLATELET COUNT (BEAKER) (test 66 K/CU MM 150-450 L OR patient code = 756) PROTHROMBIN [id number] 10:58:00 Test Item Value Reference Range Interpretation Comments PROTIME (BEAKER) (test code = 22.1 seconds 11.7-14.7 H 759) INR (BEAKER) (test code = 370) 1.9 <=5.9 RECOMMENDED COUMADIN/WARFARIN INR THERAPY RANGESSTANDARD DOSE: 2.0 - 3.0 Includes: PROPHYLAXIS for venous thrombosis, systemic embolization; TREATMENT for venous thrombosis and/or pulmonary embolus.HIGH RISK: Target INR is 2.5-3.5 for patients with mechanical heart valves.[id number] 10:58:00 Test Item Value Reference Range Interpretation Comments FIBRINOGEN LEVEL (BEAKER) (test 542 mg/dl 225-434 H code = 658) [id number] 10:58:00 Test Item Value Reference Range Interpretation Comments PARTIAL THROMBOPLASTIN TIME 35.4 seconds 22.5-36.0 (BEAKER) (test code = 760) BLOOD GAS, [id number] 10:45:00 Test Item Value Reference Range Interpretation [...] code = 1819) 92.0 % SODIUM NA-STAT [id number] 10:45:00 Test Item Value Reference Range Interpretation Comments SODIUM (BEAKER) (test code = 381) 128 meq/L 135-148 L GLUCOSE-STAT [id number] 10:45:00 Test Item Value Reference Range Interpretation Comments GLUCOSE RANDOM (BEAKER) (test code 260 mg/dL 70-110 H = 652) HGB/HCT (H&H) - STAT [id number] 10:45:00 Test Item Value Reference Range Interpretation Comments HEMOGLOBIN (BEAKER) (test code = 10.3 g/dL 13.0-16.8 L 410) HEMATOCRIT (BEAKER) (test code = 30.0 % 40.0-50.0 L 411) CALCIUM, [id number] 10:45:00 Test Item Value Reference Range Interpretation Comments CALCIUM IONIZED (BEAKER) (test 1.12 mmol/L 1.12-1.27 code = 698) PH, BLOOD (BEAKER) (test code = 7.44 1810) POTASSIUM-STAT [id number] 10:44:00 Test Item Value Reference Range Interpretation Comments POTASSIUM (BEAKER) (test code = 5.1 meq/L 3.6-5.5 379) POTASSIUM-STAT [id number] 10:03:00 Test Item Value Reference Range Interpretation Comments POTASSIUM (BEAKER) (test code = 5.4 meq/L 3.6-5.5 379) BLOOD GAS, [id number] 10:03:00 Test Item Value Reference Range Interpretation [...] code = 1819) 75.0 % SODIUM NA-STAT [id number] 10:03:00 Test Item Value Reference Range Interpretation Comments SODIUM (BEAKER) (test code = 381) 127 meq/L 135-148 L GLUCOSE-STAT [id number] 10:03:00 Test Item Value Reference Range Interpretation Comments GLUCOSE RANDOM (BEAKER) (test code 263 mg/dL 70-110 H = 652) HGB/HCT (H&H) - STAT [id number] 10:03:00 Test Item Value Reference Range Interpretation Comments HEMOGLOBIN (BEAKER) (test code = 9.6 g/dL 13.0-16.8 L 410) HEMATOCRIT (BEAKER) (test code = 28.0 % 40.0-50.0 L 411) BLOOD GAS, [id number] 09:38:00 Test Item Value Reference Range Interpretation [...] code = 1819) 60.0 % SODIUM NA-STAT [id number] 09:38:00 Test Item Value Reference Range Interpretation Comments SODIUM (BEAKER) (test code = 381) 127 meq/L 135-148 L GLUCOSE-STAT [id number] 09:38:00 Test Item Value Reference Range Interpretation Comments GLUCOSE RANDOM (BEAKER) (test code 256 mg/dL 70-110 H = 652) HGB/HCT (H&H) - STAT [id number] 09:38:00 Test Item Value Reference Range Interpretation Comments HEMOGLOBIN (BEAKER) (test code = 9.4 g/dL 13.0-16.8 L 410) HEMATOCRIT (BEAKER) (test code = 28.0 % 40.0-50.0 L 411) POTASSIUM-STAT [id number] 09:37:00 Test Item Value Reference Range Interpretation Comments POTASSIUM (BEAKER) (test code = 4.8 meq/L 3.6-5.5 379) POTASSIUM-STAT [id number] 09:08:00 Test Item Value Reference Range Interpretation Comments POTASSIUM (BEAKER) (test code = 3.7 meq/L 3.6-5.5 379) BLOOD GAS, [id number] 09:08:00 Test Item Value Reference Range Interpretation [...] code = 1819) 60.0 % SODIUM NA-STAT [id number] 09:08:00 Test Item Value Reference Range Interpretation Comments SODIUM (BEAKER) (test code = 381) 125 meq/L 135-148 L GLUCOSE-STAT [id number] 09:08:00 Test Item Value Reference Range Interpretation Comments GLUCOSE RANDOM (BEAKER) (test code 197 mg/dL 70-110 H = 652) HGB/HCT (H&H) - STAT [id number] 09:08:00 Test Item Value Reference Range Interpretation Comments HEMOGLOBIN (BEAKER) (test code = 8.7 g/dL 13.0-16.8 L 410) HEMATOCRIT (BEAKER) (test code = 26.0 % 40.0-50.0 L 411) CALCIUM, [id number] 08:12:00 Test Item Value Reference Range Interpretation Comments CALCIUM IONIZED (BEAKER) (test 1.06 mmol/L 1.12-1.27 L code = 698) PH, BLOOD (BEAKER) (test code = 7.45 1810) BLOOD GAS, [id number] 08:12:00 Test Item Value Reference Range Interpretation [...] code = 1819) 100.0 % SODIUM NA-STAT [id number] 08:12:00 Test Item Value Reference Range Interpretation Comments SODIUM (BEAKER) (test code = 381) 132 meq/L 135-148 L GLUCOSE-STAT [id number] 08:12:00 Test Item Value Reference Range Interpretation Comments GLUCOSE RANDOM (BEAKER) (test code 243 mg/dL 70-110 H = 652) HGB/HCT (H&H) - STAT [id number] 08:12:00 Test Item Value Reference Range Interpretation Comments HEMOGLOBIN (BEAKER) (test code = 13.4 g/dL 13.0-16.8 410) HEMATOCRIT (BEAKER) (test code = 39.0 % 40.0-50.0 L 411) POTASSIUM-STAT [id number] 08:09:00 Test Item Value Reference Range Interpretation Comments POTASSIUM (BEAKER) (test code = 4.0 meq/L 3.6-5.5 379) [id number] 04:50:00 Test Item Value Reference Range Interpretation Comments MAGNESIUM (BEAKER) (test code = 2.1 mg/dL 1.6-2.6 627) BASIC METABOLIC [id number] 04:50:00 Test Item Value Reference Range Interpretation [...] S NOT APPLICABLE FOR DIALYSIS PATIEN TS. [id number] 04:49:00 Test Item Value Reference Range Interpretation Comments PARTIAL THROMBOPLASTIN TIME 56.8 seconds 22.5-36.0 H (BEAKER) (test code = 760) CBC W/PLT COUNT & AUTO [id number] 04:48:00 Test Item Value Reference Range Interpretation [...] PERCENT (BEAKER) (test code = 2801) POCT-GLUCOSE [id number] 23:20:00 Test Item Value Reference Range Interpretation Comments POC-GLUCOSE METER 262 mg/dL 70-110 H TESTED AT [facility] 6720 (BEAKER) (test code = NURIS Antony [facility] 1538) [address] RAD, CHEST, 1 VIEW, NON [id number] 22:50:00Reason for exam:->Verfiy central line Should this [...] Moore MDReportVerified Date/Time: 07/29/2017 22:50:59 Reading Location: [address] Ortho Consult Reading Room TROPONIN [id number] 21:46:00 Test Item Value Reference Range Interpretation Comments TROPONIN I (KIRA) (test code = 27.18 ng/mL 0[facility]00[facility]) Troponin I (TnI) levels must be interpreted [...] acidosis, acute neurological disease, and persistent tachyarrhythmia.HEMOGLOBIN [id number] 21:42:00 Test Item Value Reference Range Interpretation Comments HEMOGLOBIN A1C (KIRA) (test code = 12.0 % 4.3-6.1 H 368) POCT-GLUCOSE [id number] 21:01:00 Test Item Value Reference Range Interpretation Comments POC-GLUCOSE METER 249 mg/dL 70-110 H TESTED AT [facility] 6720 (KIRA) (test code = NURIS Antony [facility] 1538) [address] POCT-GLUCOSE [id number] 17:57:00 Test Item Value Reference Range Interpretation Comments POC-GLUCOSE METER 268 mg/dL 70-110 H TESTED AT [facility] 6720 ([facility]) (test code = NURIS Antony [place] 1538) [address] PLATELET AGGREGATION: FUNCTION [id number] 17:11:00 Test Item Value Reference Range Interpretation Comments WEAK ADP 100 % 60-91 H RESULT([facility]) (test code = 2135) PLATELET FUNCTION 60-100% indicates SCREEN INTERP ([facility]) normal platelet (test code = 2173) function [id number] Demar Arteaga MD ([facility]) (test code = (electronic signature) 3428) PLATELET COUNT AGG 149 K/CU MM 150-450 L ([facility]) (test code = 2656) TROPONIN [id number] 14:50:00 Test Item Value Reference Range Interpretation Comments TROPONIN I ([facility]) (test code = 32.64 ng/mL 0.00-0.03 [facility]) Troponin I (TnI) levels must be interpreted [...] neurological disease, and persistent tachyarrhythmia.TSH/FREE T4 IF [id number] 14:34:00 Test Item Value Reference Range Interpretation Comments THYROID STIMULATING HORMONE 0.62 uIU/mL 0.35-4.94 ([facility]) (test code = 772) [id number] 14:02:00 Test Item Value Reference Range Interpretation Comments POTASSIUM ([facility]) (test code = 3.8 meq/L 3.5-5.1 379) [id number] 12:50:00 Test Item Value Reference Range Interpretation Comments PARTIAL THROMBOPLASTIN TIME 53.8 seconds 22.5-36.0 H ([facility]) (test code = 760) POCT-GLUCOSE [id number] 12:02:00 Test Item Value Reference Range Interpretation Comments POC-GLUCOSE METER 225 mg/dL 70-110 H TESTED AT [facility] 6720 ([facility]) (test code = NURIS Antony [place] 1538) [address] RAD, CHEST, 1 VIEW, NON [id number] 10:25:00Reason for exam:->IABPShould this be performed at the bedside?->YesFINAL REPORT Chest one view compared to July 28, 2017 Discussion: IABP marker is at the aortic knob. Bilateral interstitial opacities are similar. No effusion or pneumothorax. Signed: Jaida Terrazas Verified Date/Time: 07/29/2017 10:25:37 Reading Location: [facility] Radiology Reading Room POCT-GLUCOSE [id number] 08:23:00 Test Item Value Reference Range Interpretation Comments POC-GLUCOSE METER 229 mg/dL 70-110 H TESTED AT [place] [address] ([facility]) (test code = NURIS Antony [facility] 1538) [id number] POCT-GLUCOSE [id number] 06:48:00 Test Item Value Reference Range Interpretation Comments POC-GLUCOSE METER 204 mg/dL 70-110 H TESTED AT [place] [address] ([facility]) (test code = [facility] 1538) [id number] CBC W/PLT COUNT & AUTO [id number] 05:33:00 Test Item Value Reference Range Interpretation Comments WHITE BLOOD CELL COUNT (BEAKER) 13.1 K/ L 3.5-10.5 H (test code = 775) RED BLOOD CELL COUNT (AKER) 4.43 M/ L 4.63-6.08 L (test code [...] 0-1 PERCENT (BEAKER) (test code = 2801) [id number] 05:15:00 Test Item Value Reference Range Interpretation Comments MAGNESIUM (BEAKER) (test code = 2.4 mg/dL 1.6-2.6 627) BASIC METABOLIC [id number] 05:15:00 Test Item Value Reference Range Interpretation [...] NOT APPLICABLE FOR DIALYSIS PATIEN TS. LIPID [id number] 05:15:00 Test Item Value Reference Range Interpretation [...] 100-129 Borderline 130-159 High 160-189 Very High [id number] 05:05:00 Test Item Value Reference Range Interpretation Comments PARTIAL THROMBOPLASTIN TIME 53.8 seconds 22.5-36.0 H (BEAKER) (test code = 760) [id number] 22:36:00 Test Item Value Reference Range Interpretation Comments MAGNESIUM (BEAKER) (test code = 1.8 mg/dL 1.6-2.6 627) BASIC METABOLIC [id number] 22:36:00 Test Item Value Reference Range Interpretation [...] 358) GLUCOSE RANDOM 242 mg/dL 70-105 H ([facility]) (test code = 652) CALCIUM (AKER) 8.9 mg/dL 8.4-10.2 (test code = 697) EGFR ([facility]) (test 56 mL/min/1.73 ESTIMA FINA GFR IS code = 1092) sq m NOT ACCURATE CREATININE CLEARANCE IN PREDICTING GLOMERULAR FILTRATION RATE . ESTIMATED GFR I S NOT APPLICABLE FOR DIALYSIS PATIEN TS. RAD, CHEST, 1 VIEW, NON [id number] 22:14:00While IABP in place and following each [...] MDReport Verified Date/Time: 07/28/2017 22:14:48 Reading Location: [address] Reading Room POCT-GLUCOSE [id number] 22:01:00 Test Item Value Reference Range Interpretation Comments POC-GLUCOSE METER 238 mg/dL 70-110 H TESTED AT [facility] 6720 ([facility]) (test code = NURIS Antony [place] 1538) [id number] 21:15:00 Test Item Value Reference Range Interpretation Comments PARTIAL THROMBOPLASTIN TIME 80.4 seconds 22.5-36.0 H ([facility]) (test code = 760) Prior [...] WBC 0-0 (BEAKER) (test code = 413) [id number] 19:52:00 Test Item Value Reference Range Interpretation Comments ACTIVATED CLOTTING TIME 323 sec TEST ED AT [facility] 6720 ([facility]) (test code = NURIS [place] 441) [id number]
[2023-09-27 17:12] LABS: Absolute Lymphocytes (CBC) 1.3 K/uL (0.7-4.9); Hematocrit 40.2 % (39.6-49.0); Lymphocytes % 14.9 % (15.3-44.8); MCV 87.3 fL (80-100); MPV 9.7 fL (7.6-11.3); Platelets 228 thou/uL (152-406); RBC Red Blood Cell Count 4.61 M/uL (4.33-5.43)
[2023-09-27 17:24] LABS: Specific Gravity 1.016 (1.005-1.030); Urine Bilirubin NEGATIVE (Negative); Urine Blood Negative (Negative); Urine Clarity Clear (Clear); Urine Color Yellow (Yellow); Urine Glucose 3+ (Negative); Urine Protein NEGATIVE (Negative); Urine Urobilinogen Normal (Normal)
[2023-09-27 17:31] LABS: Protime INR 1.05
[2023-09-27 17:47] LABS: Albumin 3.7 g/dL (3.4-5.0); Bilirubin Direct 0.2 mg/dL (0-0.2); Bilirubin Indirect, Calculated 0.3 mg/dL (0.2-0.8); Bilirubin Total 0.5 mg/dL (0.2-1.0); Magnesium 2.4 mg/dL (1.6-2.4); Potassium 5.2 mEq/L (3.5-5.1); Protein, Total 8.5 g/dL (6.4-8.2)
--- NOTE | 2023-09-27 17:55 | EDPHYS ---
Physician Documentation [facility] Name: Juan Gore Age: 62 yrs Sex: Male : 1960 Arrival Date: 09/27/2023 Time: 16:25 Bed 5 Private MD: ED Physician Santiago Dowling HPI: 09/27 17:22 This 62 yrs old Male presents to ER via Ambulatory with complaints of Palpitations - sp3 low heart rate, Syncope. 17:22 62-year-old male with a history of diabetes, hypertension, prior [place], diffuse coronary sp3 artery disease status post CABG and recent cardiac catheterization [address] Cutler now presents to the ED with chief complaint of palpitations and near syncope. Cath report as reviewed demonstrates successful balloon angioplasty without stent deployment. Patient states he has multivessel disease and has been told that surgery is no longer a viable option to assist his cardiac blood flow. He currently does not have any chest pain or shortness of breath or other anginal equivalents. His presenting symptoms have subsided. He denies fever, URI symptoms, abdominal pain, vomiting, diarrhea, neurological symptoms, focal neurological deficit, or any other signs or symptoms on ROS at this time.. Historical: - Allergies: 16:42 No Known Allergies; iw - PMHx: 16:42 Diabetes - IDDM; Hypertension; Hypothyroidism; Myocardial infarction; iw - PSHx: 16:42 Heart Stents; triple bypass; iw - Immunization history:: Adult Immunizations up to date. - Social history:: Smoking status: Patient denies any tobacco usage or history of. ROS: 17:23 Constitutional: Negative for fever, chills, and weight loss, Eyes: Negative for injury, sp3 pain, redness, and discharge, ENT: Negative for injury, pain, and discharge, Neck: Negative for injury, pain, and swelling, Respiratory: Negative for shortness of breath, cough, wheezing, and pleuritic chest pain, Abdomen/GI: Negative for abdominal pain, nausea, vomiting, diarrhea, and constipation, Back: Negative for injury and pain, MS/Extremity: Negative for injury and deformity, Skin: Negative for injury, rash, and discoloration, Psych: Negative for depression, anxiety, suicide ideation, homicidal ideation, and hallucinations, Allergy/Immunology: Negative for hives, rash, and allergies, Endocrine: Negative for neck swelling, polydipsia, polyuria, polyphagia, and marked weight changes, 17:23 All other systems are negative, Exam: 17:24 Constitutional: This is a well developed, well nourished patient who is awake, alert, sp3 and in no acute distress. Head/Face: Normocephalic, atraumatic. Eyes: Pupils equal round and reactive to light, extra-ocular motions intact. Lids and lashes normal. Conjunctiva and sclera are non-icteric and not injected. Cornea within normal limits. Periorbital areas with no swelling, redness, or edema. ENT: Nares patent. No nasal discharge, no septal abnormalities noted. External auditory canals are clear. Oropharynx with no redness, swelling, or masses, exudates, or evidence of obstruction, uvula midline. Mucous membranes moist. Neck: Trachea midline, no thyromegaly or masses palpated, and no cervical lymphadenopathy. Supple, full range of motion without nuchal rigidity, or vertebral point tenderness. No Meningismus. Chest/axilla: Normal chest wall appearance and motion. Nontender with no deformity. No lesions are appreciated. Respiratory: Lungs have equal breath sounds bilaterally, clear to auscultation and percussion. No rales, rhonchi or wheezes noted. No increased work of breathing, no retractions or nasal flaring. Abdomen/GI: Soft, non-tender, with normal bowel sounds. No distension or tympany. No guarding or rebound. No evidence of tenderness throughout. Back: No spinal tenderness. No costovertebral tenderness. Full range of motion. Skin: Warm, dry with normal turgor. Normal color with no rashes, no lesions, and no evidence of cellulitis. MS/ Extremity: Pulses equal, no cyanosis. Neurovascular intact. Full, normal range of motion. Neuro: Awake and alert, GCS 15, oriented to person, place, time, and situation. Cranial nerves II-XII grossly intact. Motor strength 5/5 in all extremities. Sensory grossly intact. Cerebellar exam normal. Normal gait. Psych: Awake, alert, with orientation to person, place and time. Behavior, mood, and affect are within normal limits. 17:24 Cardiovascular: Patient in a regular bigeminy pattern on the proof technician helper as well as on pulse palpation., 17:24 ECG was reviewed by the Attending Physician. EKG demonstrates sinus rhythm at 84 bpm with a bigeminy pattern with PVC after every atrial derived beat. [place] sinus beats are similar in morphology and ST segments to EKG dated 09/20/2023. PVC beats demonstrate significant ST elevation inferiorly with subsequent depression in the precordial leads. Vital Signs: 16:41 BP 122 / 68; Pulse 44; Resp 16; Temp 97.7; Pulse Ox 99% on R/A; iw 17:03 BP 122 / 68; Pulse 93; Resp 15; Temp 97.8; Pulse Ox 98% on R/A; Pain 0/10; tm6 17:29 BP 140 / 67 Supine; tm6 17:29 BP 129 / 85 Sitting; tm6 17:29 BP 119 / 53 Standing; tm6 18:30 BP 124 / 74; Pulse 83; Resp 15; Pulse Ox 97% on R/A; hb 21:44 BP 109 / 65; Pulse 83; Resp 18; Temp 98; Pulse Ox 98% on R/A; rv 17:03 Pain Scale: Adult tm6 MDM: 16:44 Patient medically screened. sp3 17:25 Data reviewed: vital signs, nurses notes, lab test result(s), EKG, radiologic studies. sp3 ED course: 62-year-old male who presents with resolved palpitations with extensive and complex cardiac history as outlined above. I have messaged patient's office professionals a copy of his EKG as well as a message for consultation. I do not believe patient is having an acute STEMI currently as clinically he is stable and in no distress and not having any significant symptoms. Laboratory values including troponin are pending. Monitor demonstrates rhythm consistent with EKG. Patient is already on antiplatelet and beta-blockers. At this time we will await diagnostics and admit patient for serial troponins and further evaluation/consultation from the inpatient team.. 17:53 ED course: Dr. Draper now at bedside. We will start sotalol after full laboratory sp3 review and admit patient for serial cardiac markers.. 09/27 16:32 Order name: Basic Metabolic Panel; Complete Time: 17:58 sp3 09/27 16:32 Order name: CBC with Diff; Complete Time: 17:47 sp3 09/27 16:32 Order name: Hepatic Function; Complete Time: 17:58 sp3 09/27 16:32 Order name: Magnesium; Complete Time: 17:58 3 09/27 16:32 Order name: Protime (+inr); Complete Time: 17:47 3 09/27 16:32 Order name: Ptt, Activated; Complete Time: 17:47 sp3 09/27 16:32 Order name: Troponin High Sensitivity; Complete Time: 17:58 3 09/27 16:32 Order name: Urinalysis w/ reflexes; Complete Time: 17:47 3 09/27 17:38 Order name: Glucose, Ancillary Testing; Complete Time: 17:47 EDMS 09/27 20:57 Order name: Basic Metabolic Panel EDMS 09/27 20:57 Order name: Basic Metabolic Panel EDMS 09/27 20:57 Order name: CBC with Automated Diff EDMS 09/27 20:57 Order name: CBC with Automated Diff EDMS 09/27 20:57 Order name: Troponin High Sensitivity EDMS 09/27 16:32 Order name: CT Head Brain wo Cont; Complete Time: 18:13 3 09/27 16:32 Order name: Chest Single View XRAY; Complete Time: 18:13 3 09/27 16:32 Order name: EKG; Complete Time: 16:32 3 09/27 20:57 Order name: CONS Physician Consult EDMS 09/27 20:57 Order name: EKG Electrocardiogram EDMS 09/27 20:57 Order name: EKG Electrocardiogram EDMS 09/27 20:57 Order name: EKG Electrocardiogram EDMS 09/27 20:57 Order name: EKG Electrocardiogram EDMS 09/27 16:32 Order name: Cardiac monitoring; Complete Time: 17:01 3 09/27 16:32 Order name: EKG - Nurse/Tech; Complete Time: 17:01 3 09/27 16:32 Order name: IV Saline Lock; Complete Time: 17:05 3 09/27 16:32 Order name: Labs collected and sent; Complete Time: 17:05 3 09/27 16:32 Order name: NPO; Complete Time: 16:50 3 09/27 16:32 Order name: O2 Per Protocol; Complete Time: 16:48 3 09/27 16:32 Order name: O2 Sat Monitoring; Complete Time: 16:48 3 09/27 16:32 Order name: Orthostatics; Complete Time: 17:31 sp3 Administered Medications: 18:37 Drug: Metoprolol PO 25 mg PO once Route: PO; tm6 21:44 Follow up: Response: No adverse reaction rv Disposition Summary: 09/27/23 17:55 Hospitalization Ordered Notes: Provider: Melo Montgomery sp3 Location: Telemetry/MedSurg (Inpatient) sp3 Condition: Stable sp3 Problem: an acute exacerbation sp3 Symptoms: have worsened sp3 Bed/Room Type: Standard sp3 Hospitalization Status: Inpatient Admission(09/27/23 17:55) sp3 Room Assignment: 219(09/27/23 21:15) cg Diagnosis - Atrial bigeminy, palpitations, NSTEMI sp3 Forms: - Medication Reconciliation Form sp3 - SBAR form sp3 - Leadership Thank You Letter sp3 Signatures: Dispatcher [employer] EDCassidy Cortez, MELISSA-C [employer] NETWORK ENGINEER-Csnw Flory Castro RN RN Hemant Yin FNP-C [employer] NETWORK ENGINEER-Cla1 Francesca Bello RN RN Santiago Dowling MD MD sp3 Mariaelena Gonsales RN RN tm6 Armando Jason RN rv Corrections: (The following items were deleted from the chart) 17:55 17:55 Observation sp3 sp3 21:15 17:55 sp3 cg
--- NOTE | 2023-09-27 17:55 | ER ---
Nurse's Notes [facility] Name: Juan Gore Age: 62 yrs Sex: Male : 1960 Arrival Date: 09/27/2023 Time: 16:25 Bed 5 Private MD: Diagnosis: Atrial bigeminy, palpitations, NSTEMI Presentation: 09/27 16:41 Chief complaint: Patient states: got d/c Saturday from this hospital had MD, last night iw i passed out from low blood sugar (he did not check his sugar) . this morning my HR was 45 , had his metoprolol 12.5 this morning. Coronavirus screen: At this time, the client does not indicate any symptoms associated with coronavirus-19. Ebola Screen: Patient negative for fever greater than or equal to 101.5 degrees Fahrenheit, and additional compatible Ebola Virus Disease symptoms Patient denies exposure to infectious person. Patient denies travel to an Ebola-affected area in the 21 days before illness onset. No symptoms or risks identified at this time. Initial Sepsis Screen: Does the patient meet any 2 criteria? No. Patient's initial sepsis screen is negative. Does the patient have a suspected source of infection? No. Patient's initial sepsis screen is negative. Risk Assessment: Do you want to hurt yourself or someone else? Patient reports no desire to harm self or others. Onset of symptoms was September 27, 2023. 16:41 Method Of Arrival: Ambulatory iw 16:41 Acuity: CHRISTINE 3 iw Historical: - Allergies: 16:42 No Known Allergies; iw - PMHx: 16:42 Diabetes - IDDM; Hypertension; Hypothyroidism; Myocardial infarction; iw - PSHx: 16:42 Heart Stents; triple bypass; iw - Immunization history:: Adult Immunizations up to date. - Social history:: Smoking status: Patient denies any tobacco usage or history of. Screenin:30 [facility] ED Fall Risk Assessment (Adult) History of falling in the last 3 months, tm6 including since admission No falls in past 3 months (0 pts). Abuse screen: Denies threats or abuse. Denies injuries from another. Nutritional screening: No deficits noted. Tuberculosis screening: No symptoms or risk factors identified. Assessment: 17:03 General: Appears in no apparent distress. Behavior is calm, cooperative, appropriate tm6 for age. Pain: Denies pain. Neuro: Level of Consciousness is awake, alert, obeys commands, Oriented to person, place, time, situation. Cardiovascular: Capillary refill < 3 seconds Patient's skin is warm and dry. Rhythm is vent bigeminy. Respiratory: Airway is patent Respiratory effort is even, unlabored, Respiratory pattern is regular, symmetrical. GI: Abdomen is round. : No signs and/or symptoms were reported regarding the genitourinary system. EENT: No signs and/or symptoms were reported regarding the EENT system. Derm: No signs and/or symptoms reported regarding the dermatologic system. Musculoskeletal: No signs and/or symptoms reported regarding the musculoskeletal system. 18:30 Reassessment: Patient appears in no apparent distress at this time. Patient and/or hb family updated on plan of care and expected duration. Pain level reassessed. Patient is alert, oriented x 3, equal unlabored respirations, skin warm/dry/pink. Vital Signs: 16:41 BP 122 / 68; Pulse 44; Resp 16; Temp 97.7; Pulse Ox 99% on R/A; iw 17:03 BP 122 / 68; Pulse 93; Resp 15; Temp 97.8; Pulse Ox 98% on R/A; Pain 0/10; tm6 17:29 BP 140 / 67 Supine; tm6 17:29 BP 129 / 85 Sitting; tm6 17:29 BP 119 / 53 Standing; tm6 18:30 BP 124 / 74; Pulse 83; Resp 15; Pulse Ox 97% on R/A; hb 21:44 BP 109 / 65; Pulse 83; Resp 18; Temp 98; Pulse Ox 98% on R/A; rv 17:03 Pain Scale: Adult tm6 ED Course: 16:27 Patient arrived in ED. mg5 16:30 Santiago Dowling MD is Attending Physician. sp3 16:42 Triage completed. iw 16:43 Arm band placed on. iw 16:48 Mariaelena Gonsales RN is Primary Nurse. tm6 17:03 Inserted saline lock: 20 gauge in right antecubital area, using aseptic technique. tm6 17:17 CT Head Brain wo Cont In Process Unspecified. EDMS 17:27 Chest Single View XRAY In Process Unspecified. EDMS 17:30 Patient has correct armband on for positive identification. Placed in gown. Bed in low tm6 position. Call light in reach. Side rails up X2. Provided Education on: Cardiac monitoring. Client placed on continuous cardiac and pulse oximetry monitoring. NIBP monitoring applied. cloud systems administrator on. Door closed. Noise minimized. Warm blanket given. Diet: Patient is NPO. 17:30 No provider procedures requiring assistance completed. tm6 17:54 Melo Montgomery MD is Hospitalizing Provider. sp3 18:38 Dressings: ostomy pouch removed, site cleaned, new pouch placed. tm6 20:55 Primary Nurse role handed off by Mariaelena Gonsales RN 22:00 Patient admitted, IV remains in place. rv Administered Medications: 18:37 Drug: Metoprolol PO 25 mg PO once Route: PO; tm6 21:44 Follow up: Response: No adverse reaction rv Medication: 17:30 VIS not applicable for this client. tm6 Outcome: 17:55 Decision to Hospitalize by Provider. sp3 21:59 Admitted to Med/surg accompanied by tech, via wheelchair, room 219, with chart, Report rv called to LENKA PAK 21:59 Condition: good 21:59 Instructed on the need for admit, 22:00 Patient left the ED. rv Signatures: Dispatcher [employer] EDMS Flory Castro RN RN Nataly Schumacher RN RN hb Vicente, Ronaldo, RN RN rv Marsh, Wendy Santiago Dowling MD MD spYudy Jaquez mg5 Mariaelena Gonsales RN RN tm6
--- NOTE | 2023-09-27 18:09 | RAD REPORT ---
EXAM DESCRIPTION: CT - Head Brain Wo Cont - 09/27/2023 5:15 pm CLINICAL HISTORY: SYNCOPE COMPARISON: No comparisons TECHNIQUE: Noncontrast head CT images were obtained without IV contrast. Multiplanar reformats were generated and reviewed. All CT scans are performed using dose optimization technique as appropriate and may include automated exposure control or mA/KV adjustment according to patient size. FINDINGS: No intracranial hemorrhage, mass, or edema. Midline structures are unremarkable. Normal ventricular caliber for age. Barraza-white matter differentiation is preserved, without evidence of acute infarct. No abnormal extra- axial fluid collections. Mastoid air cells and visualized portions of the paranasal sinuses are clear. No acute bony findings. IMPRESSION: No evidence of an acute intracranial process.
--- NOTE | 2023-09-27 18:10 | RAD REPORT ---
EXAM DESCRIPTION: RADChest Single View09/27/2023 5:26 pm CLINICAL HISTORY: syncope COMPARISON: Chest Single View dated 09/20/2023; Chest Pa And Lat (2 Views) dated 05/07/2022; Chest Sin gle View dated 05/07/2018; Chest Single View dated 07/28/2017 TECHNIQUE: Portable AP view of the chest. FINDINGS: The lungs are clear. No pneumothorax or effusion. The cardiomediastinal contours are unre markable. Sequelae of prior CABG IMPRESSION: No acute cardiopulmonary process.
[2023-09-27] MEDS ORDERED: METOPROLOL TAR 25 MG TAB ONE (18:37)
[2023-09-27] MEDS ORDERED: ACETAMINOPHEN 500 MG TAB PO PRN (20:51)
[2023-09-27] MEDS ORDERED: TICAGRELOR 90 MG TABLET PO SCH (21:00)
[2023-09-27 22:30] VITALS: TEMP 98
[2023-09-27 22:53] VITALS: O2SAT 94
[2023-09-27] MEDS ORDERED: INSULIN GLARGINE 100 UNIT/ML SQ ONE (23:37)
--- NOTE | 2023-09-27 23:55 | P.HP ---
Certification for Inpatient With expected LOS: >2 Midnights Patient will require the following post-hospital care: None Practitioner: I am a practitioner with admitting privileges, knowledge of patient current condition, hospital course, and medical plan of care. Services: Services provided to patient in accordance with Admission requirements found in Title 42 Section 412.3 of the Code of Federal Regulations Patient History Date of Service: 09/28/23 (admitted at 1800) Reason for admission: bradycardia and sycope s/p angioplasty History of Present Illness: Pt is a 62 yo male with significant coronary artery disease, HTN, diabetes, dyslipidemia, and hypothyroidism. Pt saw Dr. Draper one week ago with 4-5 days hx of intermittent chest pain with radiation to shoulder and back, sob, lower ext edema, and orthopnea. Dr. Draper took pt to the cathode washer where it was noted that the proximal left circumflex was blocked. Balloon angiopathy performed, not amenable to stent. Pt was discharged 09/24/23 with guarded prognosis on Brilinta, lasix. Pt returned to ED today with bradycardia and syncope. Dr. Draper saw pt in ED. Recommended Metoprolol 25g BID, trending troponin, and ob servation. Allergies No Known Allergies Allergy (Verified 09/27/23 22:10) Home medications list reviewed: Yes Home Medications: Aspirin 81 mg PO DAILY 03/04/19 Atorvastatin Calcium [Lipitor] 40 mg PO BEDTIME 03/04/19 Levothyroxine [Synthroid*] 112 mcg PO [id number] 03/04/19 Metoprolol Succinate 12.5 mg PO DAILY 03/04/19 Montelukast [Singulair*] 10 mg PO BEDTIME 03/04/19 Pregabalin [Lyrica*] 75 mg PO BID 03/04/19 Insulin Glargine,Hum.rec.anlog [Semglee] 40 unit SQ BID 09/20/23 Furosemide [Lasix] 40 mg PO DAILY 30 Days #30 tab 09/24/23 Ticagrelor [Brilinta*] 90 mg PO BID 30 Days #60 tab 09/24/23 - Past Medical/Surgical History Has patient received pneumonia vaccine in the past: Yes Diabetic: Yes -: HTN -: HLD -: CAD, [place], HX bypass -: IDDM -: hypothyroidism -: CAB -: PCI - Family History Mother -: Heart disease Father -: Heart disease - Social History Smoking Status: Never smoker Alcohol use: No CD- Drugs: No Caffeine use: No Review of Systems General: As per HPI Eyes: Unremarkable ENT: Unremarkable Respiratory: Unremarkable Cardiovascular: Palpitations, Light Headedness, Other (syncope (4 hours unaccounted for)) Gastrointestinal: Unremarkable Genitourinary: Unremarkable Musculoskeletal: Unremarkable Integumentary: Unremarkable Neurological: Unremarkable Lymphatics: Unremarkable Physical Examination - Vital Signs Temperature: 98 F Blood Pressure: 119/53 Pulse: 83 Respirations: 18 - Physical Exam General: Alert, In no apparent distress, Oriented x3 HEENT: Atraumatic, Normocephalic, PERRLA Neck: Supple, 2+ carotid pulse no bruit Respiratory: Clear to auscultation bilaterally, Normal air movement Cardiovascular: No edema, Irregular heart rate/rhythm Capillary refill: <2 Seconds Gastrointestinal: Normal bowel sounds Musculoskeletal: No clubbing, No swelling Integumentary: No rashes, No breakdown, Other ((previous numerous IV/blood draw sites) Neurological: Normal strength at 5/5 x4 extr Lymphatics: No axilla or inguinal lymphadenopathy External genitalia: Deferred Rectal: Deferred - Studies Laboratory Data (last 24 hrs) 09/27/23 09/27/23 09/27/23 16:51 16:51 16:51 WBC 8.90 Hgb 13.7 Hct 40.2 Plt Count 228 PT 11.5 INR 1.05 APTT 33.4 Sodium 131 L Potassium 5.2 H BUN 36 H Creatinine 1.65 H Glucose 301 H Magnesium 2.4 Total Bilirubin 0.5 AST 21 ALT 38 Alkaline Phosphatase 69 Assessment and Plan - Problems (Diagnosis) (1) Elevated troponin Onset Date: ~09/20/23 Current Visit: Yes Status: Acute Plan: trend troponin trend electrolyte/renal studies (2) Arrhythmia as complication of acute myocardial infarction Current Visit: Yes Status: Acute Plan: Consult Dr. Draper, unable to start Sotalol as creatinine 1.66, GFR 46, potassium 5.2. Will begin metoprolol 25mg BID as recommended, Tele Discharge Plan: Transfer - Advance Directives Does patient have a Living Will: Yes Does patient have a Durable POA for Healthcare: No
--- NOTE | 2023-09-28 00:02 | P.PN ---
Subjective Date of Service: 09/28/23 Primary Care Provider: Omitogun Chief Complaint: bradycardia and sycope s/p angioplasty Subjective: New changes, Other (increasing frequency of bigeminy and then began having runs of VT lasting up to 13 seconds. Pt denies CP, SOB. Dr. Draper contacted. Recommends immediate transfer to [facility] [place] [facility]. Blueprint Cutter notified. Pt and updated on plan of care.) Physical Examination - Vital Signs Temperature: 98 F Blood Pressure: 119/53 Pulse: 83 Respirations: 18 - Studies Laboratory Data (last 24 hrs) 09/27/23 09/27/23 09/27/23 16:51 16:51 16:51 WBC 8.90 Hgb 13.7 Hct 40.2 Plt Count 228 PT 11.5 INR 1.05 APTT 33.4 Sodium 131 L Potassium 5.2 H BUN 36 H Creatinine 1.65 H Glucose 301 H Magnesium 2.4 Total Bilirubin 0.5 AST 21 ALT 38 Alkaline Phosphatase 69
--- NOTE | 2023-09-28 00:24 | P.PN ---
Subjective Date of Service: 09/28/23 Primary Care Provider: Omitogun Chief Complaint: bradycardia and sycope s/p angioplasty Attempted to transfer to [facility], denied for capacity. Will Attempt [facility]. Sadia Bello, Corporate Director Of Pharmacy attempting transfer Physical Examination - Vital Signs Temperature: 98 F Blood Pressure: 119/53 Pulse: 83 Respirations: 18 - Studies Laboratory Data (last 24 hrs) 09/27/23 09/27/23 09/27/23 16:51 16:51 16:51 WBC 8.90 Hgb 13.7 Hct 40.2 Plt Count 228 PT 11.5 INR 1.05 APTT 33.4 Sodium 131 L Potassium 5.2 H BUN 36 H Creatinine 1.65 H Glucose 301 H Magnesium 2.4 Total Bilirubin 0.5 AST 21 ALT 38 Alkaline Phosphatase 69 Assessment And Plan - Current Problems (Diagnosis) (1) Elevated troponin Onset Date: ~09/20/23 Current Visit: Yes Status: Acute Plan: trend troponin trend electrolyte/renal studies (2) Arrhythmia as complication of acute myocardial infarction Current Visit: Yes Status: Acute Plan: Consult Dr. Draper, unable to start Sotalol as creatinine 1.66, GFR 46, potassium 5.2. Will begin metoprolol 25mg BID as recommended, Tele
[2023-09-28] MEDS ORDERED: AMIODARONE HCL 150 MG in D5W 100 ML IV STA (00:46)
[2023-09-28] MEDS ORDERED: AMIODARONE HCL 900 MG in Dextrose 5%-Water 482 ML IV SCH (01:00)
--- NOTE | 2023-09-28 01:07 | P.PN ---
Subjective Date of Service: 09/28/23 Primary Care Provider: Omitogun Chief Complaint: bradycardia and sycope s/p angioplasty Attempted to transfer to [facility], denied for capacity. Will Attempt [facility]. Sadia Bello, Dividend Clerk attempting transfer. Physical Examination - Vital Signs Temperature: 98 F Blood Pressure: 119/53 Pulse: 83 Respirations: 18 - Studies Laboratory Data (last 24 hrs) 09/27/23 09/27/23 09/27/23 16:51 16:51 16:51 WBC 8.90 Hgb 13.7 Hct 40.2 Plt Count 228 PT 11.5 INR 1.05 APTT 33.4 Sodium 131 L Potassium 5.2 H BUN 36 H Creatinine 1.65 H Glucose 301 H Magnesium 2.4 Total Bilirubin 0.5 AST 21 ALT 38 Alkaline Phosphatase 69 Assessment And Plan - Current Problems (Diagnosis) (1) Elevated troponin Onset Date: ~09/20/23 Current Visit: Yes Status: Acute Plan: trend troponin trend electrolyte/renal studies (2) Arrhythmia as complication of acute myocardial infarction Current Visit: Yes Status: Acute Plan: Consult Dr. Draper, unable to start Sotalol as creatinine 1.66, GFR 46, potassium 5.2. Will begin metoprolol 25mg BID as recommended, Tele
--- NOTE | 2023-09-28 01:09 | P.PN ---
Subjective Date of Service: 09/28/23 Primary Care Provider: Omitogun Chief Complaint: bradycardia and sycope s/p angioplasty Attempted to transfer to [facility], denied for capacity. Will Attempt [facility]. Sadia Bello, Application Dba attempting transfer. Pt converted to sustained VT, external pacer placed, pt moved to ICU and amiodarone started. Reported change in status and request made for CCU bed at [place] and notes and rhythm strips faxed. Dr. Balbuena accepts pt in transfer without verbal report. Physical Examination - Vital Signs Temperature: 98 F Blood Pressure: 119/53 Pulse: 83 Respirations: 18 - Studies Laboratory Data (last 24 hrs) 09/27/23 09/27/23 09/27/23 16:51 16:51 16:51 WBC 8.90 Hgb 13.7 Hct 40.2 Plt Count 228 PT 11.5 INR 1.05 APTT 33.4 Sodium 131 L Potassium 5.2 H BUN 36 H Creatinine 1.65 H Glucose 301 H Magnesium 2.4 Total Bilirubin 0.5 AST 21 ALT 38 Alkaline Phosphatase 69 Assessment And Plan - Current Problems (Diagnosis) (1) Elevated troponin Onset Date: ~09/20/23 Current Visit: Yes Status: Acute Plan: trend troponin trend electrolyte/renal studies (2) Arrhythmia as complication of acute myocardial infarction Current Visit: Yes Status: Acute Plan: Consult Dr. Draper, unable to start Sotalol as creatinine 1.66, GFR 46, potassium 5.2. Will begin metoprolol 25mg BID as recommended, Tele
[2023-09-28] MEDS ORDERED: AMIODARONE IN DEXTROSE,ISO-OSM 360 MG/200 ML BAG IV ONE (01:15)
[2023-09-28] MEDS ORDERED: AMIODARONE HCL 150 MG/3 ML INJ IV ONE (01:16)
[2023-09-28] MEDS ORDERED: D5W 100 ML IV ONE (01:17)
[2023-09-28 02:01] VITALS: BMI 27.5
[2023-09-28] MEDS ORDERED: MORPHINE 2 MG/ML SYR ONE (02:06)
[2023-09-28] MEDS ORDERED: MORPHINE 2 MG/ML SYR IV ONE (02:09)
--- NOTE | 2023-09-28 02:10 | P.PN ---
Subjective Date of Service: 09/28/23 Primary Care Provider: Omitogun Chief Complaint: bradycardia and sycope s/p angioplasty Attempted to transfer to [facility], denied for capacity. Will Attempt [facility]. Sadia Bello, Sales And Marketing Associate attempting transfer. Pt converted to sustained VT, external pacer placed, pt moved to ICU and amiodarone started. Reported change in status and request made for CCU bed at [place] and notes and rhythm strips faxed. Dr. Balbuena accepts pt in transfer without verbal report. Physical Examination - Vital Signs Temperature: 98 F Blood Pressure: 119/53 Pulse: 83 Respirations: 18 - Studies Laboratory Data (last 24 hrs) 09/27/23 09/27/23 09/27/23 16:51 16:51 16:51 WBC 8.90 Hgb 13.7 Hct 40.2 Plt Count 228 PT 11.5 INR 1.05 APTT 33.4 Sodium 131 L Potassium 5.2 H BUN 36 H Creatinine 1.65 H Glucose 301 H Magnesium 2.4 Total Bilirubin 0.5 AST 21 ALT 38 Alkaline Phosphatase 69 Assessment And Plan - Current Problems (Diagnosis) (1) Elevated troponin Onset Date: ~09/20/23 Current Visit: Yes Status: Acute Plan: trend troponin trend electrolyte/renal studies (2) Arrhythmia as complication of acute myocardial infarction Current Visit: Yes Status: Acute Plan: Consult Dr. Draper, unable to start Sotalol as creatinine 1.66, GFR 46, potassium 5.2. Will begin metoprolol 25mg BID as recommended, Tele
--- NOTE | 2023-09-28 02:11 | P.PN ---
Subjective Date of Service: 09/28/23 Primary Care Provider: Omitogun Chief Complaint: bradycardia and sycope s/p angioplasty Attempted to transfer to [facility], denied for capacity. Will Attempt [facility]. Sadia Bello, Health Plan Manager attempting transfer. Pt converted to sustained VT, external pacer placed, pt moved to ICU and amiodarone started. Reported change in status and request made for CCU bed at [place] and notes and rhythm strips faxed. Dr. Balbuena accepts pt in transfer without verbal report. Physical Examination - Vital Signs Temperature: 98 F Blood Pressure: 119/53 Pulse: 83 Respirations: 18 - Studies Laboratory Data (last 24 hrs) 09/27/23 09/27/23 09/27/23 16:51 16:51 16:51 WBC 8.90 Hgb 13.7 Hct 40.2 Plt Count 228 PT 11.5 INR 1.05 APTT 33.4 Sodium 131 L Potassium 5.2 H BUN 36 H Creatinine 1.65 H Glucose 301 H Magnesium 2.4 Total Bilirubin 0.5 AST 21 ALT 38 Alkaline Phosphatase 69 Assessment And Plan - Current Problems (Diagnosis) (1) Elevated troponin Onset Date: ~09/20/23 Current Visit: Yes Status: Acute Plan: trend troponin trend electrolyte/renal studies (2) Arrhythmia as complication of acute myocardial infarction Current Visit: Yes Status: Acute Plan: Consult Dr. Draper, unable to start Sotalol as creatinine 1.66, GFR 46, potassium 5.2. Will begin metoprolol 25mg BID as recommended, Tele
--- NOTE | 2023-09-28 02:12 | P.PN ---
Subjective Date of Service: 09/28/23 Primary Care Provider: Omitogun Chief Complaint: bradycardia and sycope s/p angioplasty Subjective: Other (attempted to transfer via life flight, unable to fly 2nd to weather. Pt to be transferred via ground in 5-10 minutes) Attempted to transfer to [facility], denied for capacity. Will Attempt [facility]. Sadia Bello, Traffic Analysis Technician attempting transfer. Pt converted to sustained VT, external pacer placed, pt moved to ICU and amiodar one started. Reported change in status and request made for CCU bed at [place] and notes and rhythm strips faxed. Dr. Balbuena accepts pt in transfer without verbal report. Physical Examination - Vital Signs Temperature: 98 F Blood Pressure: 119/53 Pulse: 83 Respirations: 18 - Studies Laboratory Data (last 24 hrs) 09/27/23 09/27/23 09/27/23 16:51 16:51 16:51 WBC 8.90 Hgb 13.7 Hct 40.2 Plt Count 228 PT 11.5 INR 1.05 APTT 33.4 Sodium 131 L Potassium 5.2 H BUN 36 H Creatinine 1.65 H Glucose 301 H Magnesium 2.4 Total Bilirubin 0.5 AST 21 ALT 38 Alkaline Phosphatase 69 Assessment And Plan - Current Problems (Diagnosis) (1) Elevated troponin Onset Date: ~09/20/23 Current Visit: Yes Status: Acute Plan: trend troponin trend electrolyte/renal studies (2) Arrhythmia as complication of acute myocardial infarction Current Visit: Yes Status: Acute Plan: Consult Dr. Draper, unable to start Sotalol as creatinine 1.66, GFR 46, potassium 5.2. Will begin metoprolol 25mg BID as recommended, Tele
--- NOTE | 2023-09-28 02:32 | P.PN ---
Subjective Date of Service: 09/28/23 Primary Care Provider: Omitogun Chief Complaint: bradycardia and sycope s/p angioplasty Attempted to transfer to [facility], denied for capacity. Will Attempt [facility]. Sadia Bello, Certified Hyperbaric Technologist attempting transfer. Pt converted to sustained VT, external pacer placed, pt moved to ICU and amiodarone started. Reported change in status and request made for CCU bed at [place] and notes and rhythm strips faxed. Dr. Balbuena accepts pt in transfer without verbal report. Physical Examination - Vital Signs Temperature: 98 F Blood Pressure: 119/53 Pulse: 83 Respirations: 18 - Studies Laboratory Data (last 24 hrs) 09/27/23 09/27/23 09/27/23 16:51 16:51 16:51 WBC 8.90 Hgb 13.7 Hct 40.2 Plt Count 228 PT 11.5 INR 1.05 APTT 33.4 Sodium 131 L Potassium 5.2 H BUN 36 H Creatinine 1.65 H Glucose 301 H Magnesium 2.4 Total Bilirubin 0.5 AST 21 ALT 38 Alkaline Phosphatase 69 Assessment And Plan - Current Problems (Diagnosis) (1) Elevated troponin Onset Date: ~09/20/23 Current Visit: Yes Status: Acute Plan: trend troponin trend electrolyte/renal studies (2) Arrhythmia as complication of acute myocardial infarction Current Visit: Yes Status: Acute Plan: Consult Dr. Draper, unable to start Sotalol as creatinine 1.66, GFR 46, potassium 5.2. Will begin metoprolol 25mg BID as recommended, Tele
--- NOTE | 2023-09-28 02:34 | P.PN ---
Subjective Date of Service: 09/28/23 Primary Care Provider: Omitogun Chief Complaint: bradycardia and sycope s/p angioplasty Subjective: No new changes (pt with sustained VT, lost pulse, Cardioverted at 200j, CPR. Cardioverted again at 200j, return of spontaneous rhythm. 2nd antiarrhythmic started. EMS at bedside) Attempted to transfer to [facility], denied for capacity. Will Attempt [facility]. Sadia Bello, Customer Insight Analyst attempting transfer. Pt converted to sustained VT, external pacer placed, pt moved to ICU and amiodarone started. Reported change in status and request made for CCU bed at [place] and notes and rhythm strips faxed. Dr. Balbuena accepts pt in transfer without verbal report. Physical Examination - Vital Signs Temperature: 98 F Blood Pressure: 119/53 Pulse: 83 Respirations: 18 - Studies Laboratory Data (last 24 hrs) 09/27/23 09/27/23 09/27/23 16:51 16:51 16:51 WBC 8.90 Hgb 13.7 Hct 40.2 Plt Count 228 PT 11.5 INR 1.05 APTT 33.4 Sodium 131 L Potassium 5.2 H BUN 36 H Creatinine 1.65 H Glucose 301 H Magnesium 2.4 Total Bilirubin 0.5 AST 21 ALT 38 Alkaline Phosphatase 69 Assessment And Plan - Current Problems (Diagnosis) (1) Elevated troponin Onset Date: ~09/20/23 Current Visit: Yes Status: Acute Plan: trend troponin trend electrolyte/renal studies (2) Arrhythmia as complication of acute myocardial infarction Current Visit: Yes Status: Acute Plan: Consult Dr. Draper, unable to start Sotalol as creatinine 1.66, GFR 46, potassium 5.2. Will begin metoprolol 25mg BID as recommended, Tele
[2023-09-28] MEDS ORDERED: [UNRECOGNIZED DRUG - OTHER] IV ONE (02:59)
[2023-09-28] MEDS ORDERED: LIDOCAINE IV ONE (02:59)
[2023-09-28] MEDS ORDERED: D5W IV ONE (02:59)
[2023-09-28] MEDS ORDERED: LIDOCAINE/D5W 2,000 MG/500 ML BAG IV SCH ×2 (03:00→04:00)
[2023-09-28 03:39] LABS: Bilirubin Total 0.5 mg/dL (0.2-1.0); Magnesium 2.4 mg/dL (1.6-2.4); Potassium 4.5 mEq/L (3.5-5.1); Protein, Total 7.4 g/dL (6.4-8.2)
--- NOTE | 2023-09-28 04:26 | P.PN ---
Date of Service: 09/28/23 Patient admitted to ICU for V. tach, on amiodarone infusion, awaiting transfer to [facility]. While in the ED CODE FABIO was called as patient became pulseless, CPR initiated, BVM ongoing, received 200 J defibrillation x2 with ROSC. Patient returned to baseline mental status, awake and oriented x3, protecting his airway. Discussed adding additional antiarrhythmic, lidocaine with REGISTERED PUBLIC SURVEYOR, repeat EKG obtained showed sinus rhythm with frequent PVCs. Patient's was updated on events and plan. Please see TOM Benjamin's note for full HPI. Critical care billing: I have personally spent 35 minutes of critical care time, exclusive of time spent on any procedures, in evaluation and management of this critically ill patient's condition of V. tach, cardiac arrest. I provided the following critical care treatment, CPR, defibrillation, high risk medication monitoring. Shikha [id number] 09/28/2023 0200
[2023-09-28 04:27] VITALS: BP 111/60
[2023-09-28] MEDS ORDERED: METOPROLOL TAR 25 MG TAB PO SCH (06:00)
--- NOTE | 2023-09-28 14:07 | EKG ---
Test Date: 2023-09-27 Test Time: 16:50:53 Extrusion Manager: AMBAR MEASUREMENT RESULTS: Intervals: Rate: 84 ME: 150 QRSD: 90 QT: 380 QTc: 449 [place]: P: 76 ME: 150 QRS: -36 T: 85 INTERPRETIVE STATEMENTS: Sinus rhythm with frequent premature ventricular complexes in a pattern of bigeminy Left axis deviation Consider right ventricular involvement in acute inferior infarct Abnormal ECG Compared to ECG 09/21/2023 23:34:30 Ventricular premature complex(es) now present Atrial fibrillation no longer present Electronically Signed On 09-28-23 14:06:44 MARKETING RESEARCH ANALYST by Axel Draper
== END 2023-09-28 03:00 | disposition short-term general hospital (02) | DRG 310 ==
LOC: ER 16:25 → ERHOLD 20:55 → 2ND 21:33 → 3RD-ICU 09-28 01:30
PROVIDERS: ADMIT Internal Medicine Nephrology; ATTEND Internal Medicine Nephrology
PROC: 5A12012 Performance of Cardiac Output, Single, Manual (ICD-10-PCS; principal; 2023-09-28)
DX: I47.20 Ventricular tachycardia, unspecified (principal); E11.9 Type 2 diabetes mellitus without complications; I10 Essential (primary) hypertension; E78.5 Hyperlipidemia, unspecified; E03.9 Hypothyroidism, unspecified; I49.3 Ventricular premature depolarization; I46.9 Cardiac arrest, cause unspecified; I25.2 Old myocardial infarction; R77.8 Other specified abnormalities of plasma proteins; Z95.1 Presence of aortocoronary bypass graft; Z79.4 Long term (current) use of insulin; Z95.5 Presence of coronary angioplasty implant and graft; Z79.82 Long term (current) use of aspirin; Z79.890 Hormone replacement therapy; Z79.899 Other long term (current) drug therapy
CPT/HCPCS: 36415; 70450; 71045; 80048; 80053; 80076; 81003; 82550; 82947; 83735; 84484; 85025; 85610; 85730; 93005; 99285; J0282; J2270